=== PATIENT | female | born 1935 | race African-American/Black ===

== ENCOUNTER 2016-11-14 08:35 | Inpatient (IN) | payer OTHER ==
[~2016-11-14] VITALS: Ht 152.4 cm; Wt 62.7 kg
[~2016-11-14 08:35] MED LIST: ALLOPURINOL100 M1 PO; APIX5T PO; ARANESP25 MCG/0.4 SC; BACLOFEN10 M1 PO; CLOPIDOGREL75 M1 PO; COLACE100 M1 PO; COUMADIN 5 MG TA5 MG PO; ELIQUIS5 MG PO; FOLIC ACID 1 MG PO; GABAPENTIN100 M2 PO; GABAPENTIN100 MG PO; LEVOTHYROXIN0.075 M1 PO; MULTIPLE VITAM1 EAC2 PO; NEURONTIN100 MG PO; NIFEDIPINE ER30 M2 PO; SENOKOT8.6 M2 PO; SYNTHROID50 MCG PO; TOLTERODINE TART2 MG PO; VITAB121000 PO; VITAMIN D31000 UNI2 PO
--- NOTE | 2016-11-14 08:45 | NUR ---
PT BIBA FROM [facility] FOR ABNORMAL LABS. PT HAD BLOODWORK DRAWN ON 11/13 AND WAS FOUND TO HAVE A WBC OF 33.6. CXR WAS DONE AND NEGATIVE. URINE WAS OBTAINED AND SENT, PT WAS STARTED ON PO ABX FOR UTI. PT WAS ADVISED TO COME TO ED OVERNIGHT AND REFUSED. THIS AM PT WAS AGREEABLE TO COME TO ED FOR EVAL. PT ARRIVES ALERT TO SELF AND PLACE. H/O STROKE WITH LEFT SIDED DEFICITS. PT HAS NO COMPLAINTS. AFEBRILE. VSS. AWAITING EVAL.
[2016-11-14] MEDS ORDERED: ELIQUIS5 M1 PO (08:50)
[2016-11-14] MEDS ORDERED: GABAPENTIN300 M2 PO (08:52)
[2016-11-14] MEDS ORDERED: ALBUTEROL2.5 MG/3 M INH/SOL (08:53)
[2016-11-14] MEDS ORDERED: ACIDOPHILUS1 EACH PO (08:54)
[2016-11-14] MEDS ORDERED: FERROUS SULFAT325 M3 PO (08:54)
[2016-11-14] MEDS ORDERED: NITROFURANTOIN100 M6 PO (08:55)
--- NOTE | 2016-11-14 09:08 | NUR ---
DR PAGAN IN FOR EVAL.
--- NOTE | 2016-11-14 09:20 | ED GENERAL ADULT ---
History of Present Illness General Chief Complaint: General Adult Stated Complaint: BIBA ABNORMAL LABS Source: patient, old records, EMS Exam Limitations: poor historian Vital Signs & Intake/Output Vital Signs & Intake/Output Vital Signs Date Time Temp Pulse Resp B/P Pulse O2 O2 Flow FiO2 Ox Delivery Rate 11/15 0826 97.8 116 20 104/60 90 Nasal 3.0L Cannula 11/15 0000 Nasal 3.0L Cannula 11/14 2350 100.2 113 20 110/60 91 Nasal 3.0L Cannula 11/14 1609 97.9 90 21 108/70 91 Nasal 3.0L Cannula 11/14 1600 91 Nasal 3.0L Cannula 11/14 1404 98 Nasal 2.0L Cannula 11/14 1330 97.5 88 18 100/52 94 Nasal 2.0L Cannula 11/14 1241 97.0 81 20 101/52 98 Nasal 2.0L Cannula 11/14 1156 88 20 100/62 98 Room Air 11/14 1126 106/53 ED Intake and Output 11/15 0000 11/14 1200 Intake Total 340 1000 Output Total 310 200 Balance 30 800 Intake, IV 1000 Intake, Oral 340 Output, Urine 310 200 Patient 136 lb Weight Allergies Coded Allergies: clonidine (HIVES 02/02/16) Reconcile Medications Albuterol Sulfate 2.5 MG/3 ML (0.083 %) VIAL.NEB 1 Vial INH/BARBARA 4 TIMES/DAY BREATHING PROBLEMS (Reported) FOR 3 DAYS START 11/14 Allopurinol 100 MG TABLET 0.5 TAB PO DAILY GOUT (Reported) Apixaban (Eliquis) 5 MG TABLET 1 TAB PO BID PE (Reported) Baclofen 10 MG TABLET 0.25 TAB PO BID MUSCLE SPASMS (Reported) Cholecalciferol (Vitamin D3) 1,000 UNIT TABLET 1 TAB PO DAILY SUPPLEMENT ( Reported) Clopidogrel Bisulfate (Clopidogrel) 75 MG TABLET 1 TAB PO DAILY BLOOD THINNER (Reported) Darbepoetin Aldair in Polysorbat (Aranesp) 25 MCG/0.42 ML SYRINGE 1 INJ SC QW ANEMIA (Reported) Ferrous Sulfate 325 MG (65 MG IRON) TABLET 1 TAB PO BID SUPPLEMENT (Reported) Gabapentin 300 MG CAPSULE 1 CAP PO TID UNKNOWN (Reported) Lactobacillus Acidophilus (Acidophilus) 1 EACH CAPSULE 1 CAP PO DAILY GI ( Reported) Levothyroxine Sodium (Synthroid) 50 MCG TABLET 1 TAB PO DAILY AC THYROID ( Reported) Multivitamin (Multiple Vitamins) 1 EACH TABLET 1 TAB PO DAILY SUPPLEMENT ( Reported) Nifedipine (Nifedipine ER) 30 MG TAB.ER.24 1 TAB PO DAILY HBP (Reported) Nitrofurantoin Monohyd/M-Cryst (Nitrofurantoin [place]-Mcr 100 MG) 100 MG CAPSULE 1 CAP PO BID ANTIBIOTIC, INFECTION (Reported) Triage Note: PT BIBA FROM [facility] FOR ABNORMAL LABS. PT HAD BLOODWORK DRAWN ON 11/13 AND WAS FOUND TO HAVE A WBC OF 33.6. CXR WAS DONE AND NEGATIVE. URINE WAS OBTAINED AND SENT, PT WAS STARTED ON PO ABX FOR UTI. PT WAS ADVISED TO COME TO ED OVERNIGHT AND REFUSED. THIS AM PT WAS AGREEABLE TO COME TO ED FOR EVAL. PT ARRIVES ALERT TO SELF AND PLACE. H/O STROKE WITH LEFT SIDED DEFICITS. PT HAS NO COMPLAINTS. AFEBRILE. VSS. AWAITING EVAL. Triage Nurses Notes Reviewed? yes HPI: Patient presents for evaluation of abnormal labs. In her accounting she states that her blood pressure was increased and her white blood cell count was low. She states her temperature was also elevated at the [facility] care facility. She denies any associated dyspnea or pain. According to the W 10 form the patient appears to have had a low-grade fever with occasional decreased and oxygen saturations. She refused to go the hospital yesterday for evaluation. One point she had a large amount of the loose stool. According to the W 10 form the patient's BUN and creatinine were elevated, her potassium was elevated and her sodium was low. She was convinced to go to the emergency department this morning. Past History Travel History Traveled to [place] past 21 day No Medical History Any Pertinent Medical History? 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 TETRAPLEGIA EENT: cataracts (s/p extraction bilaterally) Cardiovascular: diastolic CHF, HTN, PE S/P IVC FILTER PLACEMENT DVT s/p IVC filter placement Respiratory: COPD, pulmonary embolism, pneumonia Gastrointestinal: diverticulitis Hepatic: NONE Renal: neurogenic bladder, CKI Musculoskeletal: gout, PARAPLEGIC SPINAL SURGERY (DISC PROLAPSE) Psychiatric: NONE Endocrine: hypothyroidism Blood Disorders: anemia, hemoglobin SC trait Cancer(s): NONE NOTEMAN/Reproductive: NONE History of MRSA: No History of VRE: No History of CDIFF: No Pneumonia Vaccine: 06/22/02 Surgical History Surgical History: non-contributory Psychosocial History Who do you live with W10 Services at Home Nursing, NONE What is your primary language Mongolian Tobacco Use: Never used ETOH Use: denies use Illicit Drug Use: denies illicit drug use Family History Family History, If Any: Relation not specified for: FH: hypertension Hx Contributory? No Review of Systems Review of Systems Constitutional: Reports: fever. EENTM: Reports: no symptoms. Respiratory: Reports: no symptoms. Cardiovascular: Reports: no symptoms. GI: Reports: no symptoms. Genitourinary: Reports: no symptoms. Musculoskeletal: Reports: no symptoms. Skin: Reports: no symptoms. Neurological/Psychological: Reports: no symptoms. Hematologic/Endocrine: Reports: no symptoms. Immunologic/Allergic: Reports: no symptoms. All Other Systems: Reviewed and Negative Physical Exam Physical Exam General Appearance: see below Comments: Gen.: Well-nourished, well-developed, no acute respiratory distress. Head: Normocephalic, atraumatic. Eyes: Normal inspection bilaterally Ears: Normal inspection bilaterally Nose: Normal inspection Throat/mouth : Moist mucosa Neck: Supple, full range of motion, no goiter Heart: Regular rate and rhythm, no murmurs rubs or gallops Lungs: Clear to auscultation bilaterally with normal air entry (poor respiratory effort given patient's past medical history) Chest: Nontender Back: Normal range of motion Abdomen: Soft, nontender, mildly, normal bowel sounds Extremities: Weakness of the upper extremities with muscle wasting. No cyanosis clubbing or edema. Neurologic: Cranial nerves grossly intact, speech is clear Skin: warm and dry Psychiatric: Calm, cooperative, no apparent delusions or hallucinations Core Measures ACS in differential dx? No CVA/TIA Diagnosis: No Severe Sepsis Present: No Septic Shock Present: No Progress Differential Diagnoses I considered the following diagnoses in my evaluation of the patient: Occult infection, electrolyte abnormality, renal insufficiency/failure Plan of Care: Orders Procedure Date/time Status LEUKOCYTE POOR (PACKED CELLS) 11/[address] ABD & PELVIS W/O IV CONTRAS 11/15 0918 Active TYPE & SCREEN (NOT X-MATCH) 11/15 0830 Active CULTURE,URINE 11/15 0647 Active CBC WITHOUT DIFFERENTIAL 11/15 0600 Complete BASIC ELECTROLYTES PLUS BUN&CR 11/15 0600 Complete Regular Diet 11/14 L Active Pathway - chart 11/14 1605 Active OXYGEN SETUP (GEN) 11/14 1600 Complete Turn and Reposition 11/14 1415 Active Skin Integrity Protocol 11/14 1415 Active Skin/Pressure Ulcer Assess (Sk 11/14 1415 Active Pathway - chart 11/14 1406 Active House Staff 11/14 1406 Active Teach/Educate 11/14 1331 Active Nutritional Intake, Monitor 11/14 1331 Active Isolation 11/14 1331 Active Patient Care Conference 11/14 1331 Active Activity/Ambulation 11/14 1331 Active Misc Message 11/14 1224 Active ED Holding Orders 11/14 1224 Active Vital Signs 11/14 1224 Active Code Status 11/14 1224 Active Patient Data 11/14 1215 Active Admit to inpatient 11/14 1141 Active Intake & Output 11/14 0843 Active Lab Add-on Test 11/14 UNK Active VTE Mechanical Prophylaxis 11/14 UNK Active Hemoccult 11/14 UNK Active Current Medications Sig/Kobi Start time Last Medication Dose Stop Time Status Admin Multivitamins 1 TAB DAILY 11/15 1000 AC Therapeutic (Theragran-M Vitamins Tabs) Albuterol Sulfate 3 ML 4 TIMES/DAY 11/14 1800 CAN (Proventil) Acetaminophen 650 MG Q6P PRN 11/14 1615 AC (Tylenol) Acetaminophen 1,000 MG Q6P PRN 11/14 1615 AC (Ofirmev) Morphine Sulfate 1 MG Q6-PRN PRN 11/14 1615 AC (Morphine) Laboratory Tests 11/15/16 0624: Anion Gap 12, Estimated GFR 11 L, BUN/Creatinine Ratio 20.8, CBC w Diff MAN DIFF ORDERED, RBC 2.45 L, MCV 82.9, MCH 27.1, RDW 20.0 H, MPV 8.8, Gran % 89.5 H, Lymphocytes % 3.5 L, Monocytes % 6.9, Eosinophils % 0.1, Basophils % 0 L, Absolute Granulocytes 31.9 H, Segmented Neutrophils 84 H, Band Neutrophils 2, Absolute Lymphocytes 1.3, Lymphocytes 4 L, Monocytes 10 H, Absolute Monocytes 2.4 H, Absolute Eosinophils 0, Absolute Basophils 0, Nucleated RBCs 2 H, Platelet Estimate VERIFIED BY SMEAR, Hypochromic-Microcytic 1+, Poikilocytosis 1 +, Anisocytosis 1+, Target Cells 1+, PUBS MCHC 32.7 L 11/14/16 1220: Lactic Acid Cancelled Microbiology 11/15 0650 URINE ROUT: Urine Culture - RECD Diagnostic Imaging: Discussed w/RAD: Radiology Read. CXR Impression: PATIENT: JOHNNIE CLEANING PRESENT AGE : 81 PATIENT ACCOUNT NO: [id number] : 34 LOCATION: [facility] ORDERING PHYSICIAN: EMELI PAGAN MD SERVICE DATE: 11/14/16 EXAM TYPE: RAD - XRY-PORTABLE CHEST XRAY EXAMINATION: XR PORTABLE CHEST CLINICAL INFORMATION: Fever COMPARISON: 10/25/2015 TECHNIQUE: Portable AP view of the chest was obtained. FINDINGS: There is elevation of the right hemidiaphragm. There is mild streaky opacity at the lung bases, suggesting atelectasis. The mid and upper lungs are clear. No evidence of pneumothorax, significant pleural effusion, or overt pulmonary edema. Cardiac size is at the upper limits of normal. Calcification is present at the aortic arch. No acute osseous findings are seen. IMPRESSION: Mild streaky bibasilar opacities suggesting atelectasis. Short-term radiographic follow-up would be helpful to exclude developing superimposed consolidation. DICTATED BY: IMANI OJEDA MD DATE/TIME DICTATED:11/14/16946 GAUGE INSPECTOR:BAO DATE/TIME TRANSCRIBED:11/14/16946 CONFIDENTIAL, DO NOT COPY WITHOUT APPROPRIATE AUTHORIZATION. <Electronically signed in Other Vendor System> SIGNED BY: IMANI OJEDA MD 11/14/1652 Initial ED EKG: NSR, rate (89), nonspecific ST T wave chg Prior EKG: unchanged Rhythm Strip: normal sinus rhythm Departure Departure Disposition: STILL A PATIENT Condition: Stable Clinical Impression Primary Impression: Bacteremia Secondary Impressions: Acute kidney injury Hyponatremia UTI (urinary tract infection) Qualifiers: Urinary tract infection type: acute cystitis Hematuria presence: with hematuria Qualified Code: N30.01 - Acute cystitis with hematuria Referrals: ADIS FLOREZ MD (PCP/Family) Departure Forms: Customer Survey General Discharge Information Admission Note Spoke With: MICHELL DALE M.D Documentation of Exam: Documentation of any treatments & extenuating circumstances including Concerns Regarding Discharge (functional status, medication knowledge or non-compliance, living conditions, etc.) that warrant an admission rather than observation: Patient presents with a history of fever and fluctuating oxygen saturations at her extended care facility. She currently has hyponatremia, acute kidney injury and a severely elevated white blood cell count consistent with UTI with bacteremia. Given the patient's advanced age and medical comorbidities I feel she is at high risk of worsening infection, sepsis, septic shock and . The patient's acute on chronic renal insufficiency/AKA, anemia and heart and lung disease place her at even greater risk of poor outcome. I do not feel that she could be treated as an outpatient at this time. I feel she now requires an aggressive management with IV antibiotics, IV fluids and close clinical monitoring of vital signs and oxygen saturations. Urine and blood culture results should be followed and treated accordingly. I feel this patient's treatment and recovery will be prolonged and complicated. Given the above I feel this patient will require a multiple day hospitalization. Critical Care Note Critical Care Note Critical Care Time: 30-74 min
[2016-11-14 09:33] LABS: HEMATOCRIT 23.6 % (37-47); MEAN PLATELET VOLUME 9.1 FL (7.4-10.4)
[2016-11-14 09:38] LABS: MEAN CORPUSCULAR HGB 26.9 PG (27.0-31.0); MEAN CORPUSCULAR HGB CONC 33.3 G/DL (33.0-37.0); MEAN CORPUSCULAR VOLUME 80.8 FL (81.0-99.0); PLATELET COUNT 286 /CUMM (130-400); RBC DISTRIBUTION WIDTH 20.2 % (11.5-14.5); RED BLOOD CELL CT 2.92 /CUMM (4.20-5.40)
[2016-11-14 09:44] LABS: WHITE BLOOD CELL COUNT 32.4 /CUMM (4.8-10.8)
--- NOTE | 2016-11-14 09:45 | NUR ---
CRITICAL TEST RESULTS [id number] JOHNNIE CLEANING 81 F TESTS AND RESULTS: WBC 32.4 Results received and read back by: MOHAN MENDEZ Results received date and time: 11/14/16 0945 The following provider was notified of the results, and read the results back: DR PAGAN Notified date and time: 11/14/16 at 0945
--- NOTE | 2016-11-14 09:52 | RADIOLOGY REPORT ---
EXAMINATION: XR PORTABLE CHEST CLINICAL INFORMATION: Fever COMPARISON: 10/25/2015 TECHNIQUE: Portable AP view of the chest was obtained. FINDINGS: There is elevation of the right hemidiaphragm. There is mild streaky opacity at the lung bases, suggesting atelectasis. The mid and upper lungs are clear. No evidence of pneumothorax, significant pleural effusion, or overt pulmonary edema. Cardiac size is at the upper limits of normal. Calcification is present at the aortic arch. No acute osseous findings are seen. IMPRESSION: Mild streaky bibasilar opacities suggesting atelectasis. Short-term radiographic follow-up would be helpful to exclude developing superimposed consolidation.
--- NOTE | 2016-11-14 10:10 | NUR ---
URINE TRIO SENT TO LAB. [facility] PROVIDED.
--- NOTE | 2016-11-14 10:30 | NUR ---
DR PAGAN IN TO SPEAK WITH PT'S DAUGHTER.
--- NOTE | 2016-11-14 11:15 | NUR ---
UPDATED [facility] ABOUT PT'S ADMISSION.
--- NOTE | 2016-11-14 12:50 | NUR ---
PT ADMITTED TO ROOM [id number]
--- NOTE | 2016-11-14 12:56 | NUR ---
REPORT TO ARNOL VALENTINO ON 2NB. TRANSPORT CALLED.
--- NOTE | 2016-11-14 13:23 | History & Physical ---
DENABILL 11/14/16 1323: General Information and HPI MD Statement: I have seen and personally examined JOHNNIE CLEANING and documented this H&P. The patient is a 81 year old F who presented with a patient stated chief complaint of [Fever]. 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 Patient is incontinent at baseline for urine but reports that she is continent for stool. She has been running fever for the past 2 days in the range of 100 with a few points. She denies any dysuria and cannot quantify if high urine frequency has changed because she pees in the diapers. There is a reported history of diarrhea about 2 motions yesterday which were none blood stained and at that time the patient was complaining of mild abdominal pain which today has resolved. She has recent history of using antibiotics 2 weeks ago because of greenish vaginal discharge. She denies any vomiting but reports nausea and has decreased appetite. Patient denies any shortness of breath, chest pain, palpitation, dizziness, lightheadedness Allergies/Medications Allergies: Coded Allergies: clonidine (HIVES 02/02/16) Home Med list Albuterol Sulfate 2.5 MG/3 ML (0.083 %) VIAL.NEB 1 Vial INH/BARBARA 4 TIMES/DAY BREATHING PROBLEMS (Reported) FOR 3 DAYS START 11/14 Allopurinol 100 MG TABLET 0.5 TAB PO DAILY GOUT (Reported) Apixaban (Eliquis) 5 MG TABLET 1 TAB PO BID PE (Reported) Baclofen 10 MG TABLET 0.25 TAB PO BID MUSCLE SPASMS (Reported) Cholecalciferol (Vitamin D3) 1,000 UNIT TABLET 1 TAB PO DAILY SUPPLEMENT ( Reported) Clopidogrel Bisulfate (Clopidogrel) 75 MG TABLET 1 TAB PO DAILY BLOOD THINNER (Reported) Darbepoetin Aldair in Polysorbat (Aranesp) 25 MCG/0.42 ML SYRINGE 1 INJ SC QW ANEMIA (Reported) Ferrous Sulfate 325 MG (65 MG IRON) TABLET 1 TAB PO BID SUPPLEMENT (Reported) Gabapentin 300 MG CAPSULE 1 CAP PO TID UNKNOWN (Reported) Lactobacillus Acidophilus (Acidophilus) 1 EACH CAPSULE 1 CAP PO DAILY GI ( Reported) Levothyroxine Sodium (Synthroid) 50 MCG TABLET 1 TAB PO DAILY AC THYROID ( Reported) Multivitamin (Multiple Vitamins) 1 EACH TABLET 1 TAB PO DAILY SUPPLEMENT ( Reported) Nifedipine (Nifedipine ER) 30 MG TAB.ER.24 1 TAB PO DAILY HBP (Reported) Nitrofurantoin Monohyd/M-Cryst (Nitrofurantoin Stanton-Mcr 100 MG) 100 MG CAPSULE 1 CAP PO BID ANTIBIOTIC, INFECTION (Reported) Past History Travel History Traveled to [place] past 21 day No Medical History Neurological: peripheral neuropathy, TIA, SPINAL STROKE PARALEGIA following surgery for disc prolapse TETRAPLEGIA EENT: cataracts (s/p extraction bilaterally) Cardiovascular: diastolic CHF, HTN, PE S/P IVC FILTER PLACEMENT DVT s/p IVC filter placement Respiratory: COPD, pulmonary embolism, pneumonia Gastrointestinal: diverticulitis Hepatic: NONE Renal: neurogenic bladder, CKI Musculoskeletal: gout, PARAPLEGIC SPINAL SURGERY (DISC PROLAPSE) Psychiatric: NONE Endocrine: hypothyroidism Blood Disorders: anemia, hemoglobin SC trait Cancer(s): NONE 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 self Services at Home: Nursing, NONE Primary Language: Thai ETOH Use: denies use Illicit Drug Use: denies illicit drug use Living Will? unknown Power of Sweat Band Separator/HCP? her daughter Name of POA/HCP: Nichole Functional Ability ADLs Needs Assist: dressing, eating, toileting, bathing. Ambulation: non-ambulatory IADLs Independent: telephone. Needs Assist: shopping, housework, finances, food prep, transportation, medication admin. Review of Systems Review of Systems Constitutional: Reports: fever. Denies: chills. Cardiovascular: Denies: chest pain, palpitations. Respiratory: Denies: cough, short of breath. GI: Reports: diarrhea, nausea. Denies: abdominal pain, vomiting. Genitourinary: Denies: no symptoms. Musculoskeletal: Denies: no symptoms. All Other Systems: Reviewed and Negative Exam & Diagnostic Data Last 24 Hrs of Vital Signs/I&O Vital Signs Date Time Temp Pulse Resp B/P Pulse O2 O2 Flow FiO2 Ox Delivery Rate 11/14 1404 98 Nasal 2.0L Cannula 11/14 1330 97.5 88 18 100/52 94 Nasal 2.0L Cannula 11/14 1241 97.0 81 20 101/52 98 Nasal 2.0L Cannula 11/14 1156 88 20 100/62 98 Room Air 11/14 1126 106/53 11/14 1028 98.1 89 18 98/50 96 11/14 0900 96 Nasal 2.0L Cannula 11/14 0845 98.9 91 20 100/57 95 Nasal 2.0L Cannula Intake & Output 11/14 1600 11/14 0800 11/14 0000 Intake Total 1000 Output Total 200 Balance 800 Intake, IV 1000 Output, Urine 200 Patient 136 lb Weight Physical Exam General Appearance Alert, Oriented X3, Cooperative Skin No Rashes, patient has a healing wound on the cocyx HEENT Atraumatic, Mucous Membr. moist/pink Neck No JVD Cardiovascular Regular Rate, Normal S1, Normal S2 Lungs Clear to Auscultation Abdomen Normal Bowel Sounds, Soft, No Tenderness Neurological Normal Speech, 0 power on the left upper and lower limbs/Lilli power on the right left upper and lower around 3 out of 5 Extremities No Clubbing, No Cyanosis, No Edema Last 24 Hrs of Labs/Jun: Laboratory Tests 11/14/16 1220: Lactic Acid Cancelled 11/14/16 1010: Urinalysis HEAVY H, Urine Color YEL, Urine Clarity CLDY H, Urine pH 6.5, Ur Specific [place] 1.015, Urine Protein 30 H, Urine Ketones NEG, Urine Nitrite NEG, Urine Bilirubin NEG, Urine Urobilinogen 1.0, Ur Leukocyte Esterase MOD H, Ur Microscopic SEDIMENT EXAMINED, Urine WBC > 75 H, Ur Epithelial Cells MOD H, Urine Hemoglobin LARGE H, Urine Glucose NEG 11/14/16 0926: Anion Gap 14, Estimated GFR 10 L, BUN/Creatinine Ratio 21.9, Glucose 75, Lactic Acid 1.5, Calcium 8.0 L, Total Bilirubin 1.3, AST 42 H, ALT 24, Alkaline Phosphatase 59, Troponin I 0.02, Total Protein 5.9 L, Albumin 3.0 L, Globulin 2.9, Albumin/Globulin Ratio 1.0 L, CBC w Diff MAN DIFF ORDERED, RBC 2.92 L, MCV 80.8 L, MCH 26.9 L, RDW 20.2 H, MPV 9.1, Segmented Neutrophils 89 H, Band Neutrophils 2, Lymphocytes 5 L, Monocytes 4, Nucleated RBCs 2 H, Platelet Estimate ADEQUATE, Polychromasia 1+, Hypochromic-Microcytic 2+, Poikilocytosis 2 +, Anisocytosis 2+, Target Cells 1+, Schistocytes 1+, PUBS MCHC 33.3 Microbiology 11/14 1050 BLOOD: Blood Culture - RECD 11/14 1034 URINE ROUT: Urine Culture - ORD 11/14 1030 BLOOD: Blood Culture - RECD Diagnostic Data CXR Results Bibasilar atelectasis Assessment/Plan Assessment: This is an 81 years old lady with extensive past medical history hypertension hypothyroidism hyperlipidemia sick a deep 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 This patient renal function has deteriorated significantly with creatinine increasing from 1.1 to 4.2 from August 07 with significant increase in BUN and decrease in GFR from 48-10 Problem list Urinary tract infection Acute kidney injury Hypotension Borderline hyperkalemia Chronic anemia Admit the patient to general medicine floor, vital signs every shift, is said to folic acid and is monitor I and O's, patient started on ceftriaxone 1000 mg daily will continue with the medication, follow-up urine culture results, patient receiving hydration normal saline 1 L at 500 mL per hour and we will continue at 150 mL/h for 2 L, nephrology consult for a.m., call [facility] to find out blood culture, will hold antihypertensive medication nifedipine 30 and consider restarting tomorrow if blood pressure stabilizes, continue with anemia supplementation. As Ranked By This Provider Problem List: 1. Acute kidney injury 2. UTI (urinary tract infection) Qualifiers Urinary tract infection type: acute cystitis Hematuria presence: with hematuria Qualified Code: N30.01 - Acute cystitis with hematuria 3. Hypothyroidism 4. DVT (deep venous thrombosis) Core Measures/Miscellaneous Acute Coronary Syndrome ACS Diagnosis: No Cerebrovascular Accident CVA/TIA Diagnosis: No Congestive Heart Failure CHF Diagnosis: No Venous Thromboembolism VTE Risk Factors: Acute medical illness, Age > 40 VTE Prophylaxis Ordered Inpt: Pharm- Eliquis No [facility] VTE prophylaxis d/t: No contraindications No VTE Pharm Prophylaxis d/t: No contraindications VTE Diagnosis: No VTE Type: NONE VTE Confirmed by (Test): NONE Severe Sepsis Severe Sepsis Present: No Septic Shock Septic Shock Present: No Miscellaneous Documentation Attending Case Discussed With: CANDE ELIZONDO MD Primary Care Physician: ADIS FLOREZ MD Patient sees these Specialists Carpenter Apprentice Level of Patient Care: General Medicine Resident Review Statement Resident Statement: examined this patient, review and workup as above CANDE ELIZONDO MD 11/14/16 7385: Attending MD Review Statement Attending Statement Attending MD Statement: examined this patient, discuss w/resident/PA/PURIFYING PLANT OPERATOR, agreed w/resident/PA/PURIFYING PLANT OPERATOR, discussed with family, reviewed EMR data (avail), discussed with nursing, amended to note Attending Assessment/Plan: The patient is an 81 yo female with h/o HEN, hypothyroid, h/o spinal cord injury (quadriplegia) and DVT/PE in past, 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 She was noted to have a fever (?100) prior to admission and bloodwork showed a significantly elevated WBC. She had been begun on Macrodantin 100 mg bid for presumed UTI. In the ED her BP was low and there was a significant elevation in her Creatinine 4.2 (was 2.8 on 11/13 and prior to that 1.1). She denied any chills, dyspnea, cough, abdominal pain, diarrhea, chest pain or other symptoms. Physical Exam: VS: T 98.9, P 91, R 20, BP 100/57, PO 95% on 2L HEENT: eyes- PERRLA, EOMI cleopatra- dry mucosa Neck: No JVD or bruits Chest: clear Cor: RRR, nl S1, S2 w/o murm Abd: BS+, soft, NT Ext: no edema Neuro: some movement of right side (3/5), able to move toes on left side (1/5)- baseline per relative Impression/Plan: #UTI- patient with WBC 32.4, fever (100), low BP, pyuria c/w urinary source. Has been on Macrodantin x 1 day. Lactate normal and does not appear toxic. Low BP most likely due to volume depletion. Plan: Quintana culture and check SNF regarding urine culture sent out. Ceftriaxone 1 g q24 hours #Acute Renal Failure- in patient with sepsis and probable significant component of volume depletion. Also has h/o renal artery stenosis. Cr today 4.2, was 2.8 2 and prior 1.1. Plan: Aggressive IV hydration at present. Follow-up Cr. Nephrology Consult (they have seen before). Consider renal US if not improving. Avoid nephrotoxins. #Quadriplegia- neuro exam unchanged per relatives. Plan: Continue Baclofen and Gabapentin. Will follow. #H/O DVT/PE- on Apixaban. Plan: Continue Apixaban. #S/P TIA-unclear history, however patient is on Plavix and ASA. Plan: Continue Plavix/ASA. #Hypothyroid- on Levothyroxine. Plan: Continue Levothyroxine. #HTN- BP low at present. Plan: Will hold Nifedipine at present until BP increases.
[2016-11-14 13:30] VITALS: BP 100/52
--- NOTE | 2016-11-14 14:38 | NUR ---
NURSING NOTE: PT ARRIVED TO FLOOR VIA STRETCHER AT 1300. PT A&OX2, LEFT SIDED PARALYSIS NOTED. VSS CHARTED. SM HEALING WOUND NOTED TO COCCYX. IVF INFUSING. FAMILY AT BEDSIDE. AWAITING FURTHER ORDERS.
[2016-11-14 16:09] VITALS: BP 108/70
--- NOTE | 2016-11-14 18:46 | NUR ---
ALERT AND ORIENTED X 3. VITAL SIGNS STABLE. NO DISCOMFORT NOTED O2SAT 91% ON 3L VIA NASAL CANNULA. HEALING WOUND ON COCCYX NOTED. PATIENT REPOSITIONED Q2HRS. CHINCHILLA CARE GIVEN. PATIENT RESTING AT THIS TIME. WILL CONTINUE TO MONITOR
--- NOTE | 2016-11-14 21:55 | Admission Certification ---
Admission Certification Certification Statement - As attending physician, I certify that at the time of - admission, based on clinical presentation, severity of - symptoms, need for further diagnostic testing and - therapeutic interventions, and risk of adverse outcomes - without in-hospital treatment, in my clinical assessment, - this patient requires an acute hospital stay for a minimum - of two nights or longer. I have also considered psychsocial - factors such as support system, advanced age, financial - issues, cognitive issues, and failed out-patient treatments, - past re-admission history, safety of patient, and lack of - compliance as applicable. Specific rationale supporting this admission is: The patient presents with fever, leukocytosis c/w sepsis of urologic origin. Also with acute renal failure with Cr 4.2 (baseline 1.1). Needs hydration, close follow-up of renal function. IV antibiotics (Ceftriaxone).
--- NOTE | 2016-11-14 22:07 | NUR ---
BROADLOOM WEAVER NOTIFIED OF CRITICAL LAB VALUES
[2016-11-14 23:50] VITALS: BP 110/60
[2016-11-15 07:53] LABS: ABSOLUTE BASOPHIL COUNT 0 /CUMM (0.0-0.2); ABSOLUTE EOSINOPHIL COUNT 0 /CUMM (0.0-0.7); ABSOLUTE GRANULOCYTE CT 31.9 /CUMM (1.4-6.5); ABSOLUTE LYMPH COUNT 1.3 /CUMM (1.2-3.4); ABSOLUTE MONOCYTE COUNT 2.4 /CUMM (0.10-0.60); BASOPHIL % 0 % (0.0-2.0); EOSINOPHIL % 0.1 % (0-5); GRANULOCYTE % 89.5 % (42.2-75.2); MEAN CORPUSCULAR HGB 27.1 PG (27.0-31.0); MEAN CORPUSCULAR HGB CONC 32.7 G/DL (33.0-37.0); MEAN CORPUSCULAR VOLUME 82.9 FL (81.0-99.0); MEAN PLATELET VOLUME 8.8 FL (7.4-10.4); PLATELET COUNT 254 /CUMM (130-400); RED BLOOD CELL CT 2.45 /CUMM (4.20-5.40)
--- NOTE | 2016-11-15 08:07 | PN- Housestaff ---
TAMERA METZ,MARIUM 11/15/16 0807: Subjective Follow-up For: Sepsis with urologic origin Complaints: no complaints Subjective: She is lying bed paraplegic, arciniega is in. She denies cough/sputum, shortness of breath, n/v/abdominal pain. Review of Systems Constitutional: Reports: chills, fever. Denies: weakness. EENTM: Reports: see HPI. Cardiovascular: Denies: chest pain, orthopena, palpitations, peripheral edema. Respiratory: Denies: cough, short of breath, sputum production, wheezing. Gastrointestinal: Denies: abdominal pain, diarrhea, nausea, vomiting. Genitourinary: Denies: dysuria, frequency, hematuria. Musculoskeletal: Denies: back pain, joint pain. Skin: Reports: no symptoms. Neurological/Psychological: Reports: pre-existing deficit, weakness. Hematologic/Endocrine: Reports: no symptoms. Immunologic/Allergic: Reports: no symptoms. Objective Last 24 Hrs of Vital Signs/I&O Vital Signs Date Time Temp Pulse Resp B/P Pulse O2 O2 Flow FiO2 Ox Delivery Rate 11/15 1840 91 Nasal 3.0L Cannula 11/15 1840 98.6 99 18 120/55 91 Nasal 3.0L Cannula 11/15 0826 97.8 116 20 104/60 90 Nasal 3.0L Cannula 11/15 0800 95 Nasal 3.0L Cannula 11/15 0000 Nasal 3.0L Cannula 11/14 2350 100.2 113 20 110/60 91 Nasal 3.0L Cannula Intake & Output 11/15 1600 11/15 0800 11/15 0000 Intake Total 880 1200 100 Output Total 250 250 310 Balance 630 950 -210 Intake, IV 400 1000 Intake, Oral 480 200 100 Output, Urine 250 250 310 Physical Exam General Appearance: Alert, Cooperative, No Acute Distress Skin: No Rashes, No Breakdown, No Significant Lesion HEENT: Atraumatic, PERRLA, EOMI, Mucous Membr. moist/pink Neck: Supple, No JVD, No LAD Lymphatic: Cervical nl Cardiovascular: Regular Rate, Normal S1, Normal S2, No Murmurs Lungs: decreased bilateral breathing sound Abdomen: Normal Bowel Sounds, Soft, No Tenderness Neurological: Normal Speech, Normal Tone, Sensation Intact, paraplegic Extremities: No Edema, Normal Pulses, No Tenderness/Swelling Vascular: Normal Pulses, Pulses Symmetrical Current Medications: Current Medications Sig/Kobi Start time Last Medication Dose Route Stop Time Status Admin Acetaminophen 650 MG Q6P PRN 11/14 1615 AC PO Acetaminophen 1,000 MG Q6P PRN 11/14 1615 AC IV Allopurinol 50 MG DAILY 11/15 1000 AC 11/15 PO 0923 Apixaban 2.5 MG BID 11/14 2200 AC 11/15 PO 0923 Baclofen 2.5 MG BID 11/14 2200 AC 11/15 PO 0928 Ceftriaxone Sodium 1,000 MG DAILY 11/15 1000 AC 11/15 IV 0929 Cholecalciferol 1,000 IU DAILY 11/15 1000 AC 11/15 PO 0923 Clopidogrel Bisulfate 75 MG DAILY 11/15 1000 AC 11/15 PO 0923 Ferrous Sulfate 325 MG BID 11/14 2200 AC 11/15 PO 0923 Gabapentin 100 MG DAILY 11/14 1600 AC 11/15 PO 0923 Lactobacillus 1 CAP DAILY 11/15 1000 AC 11/15 Acidophilus PO 0923 Levothyroxine Sodium 0.05 MG DAILY AC 11/15 0700 AC 11/15 PO 0744 Morphine Sulfate 1 MG Q6-PRN PRN 11/14 1615 AC IV Multivitamins 1 TAB DAILY 11/15 1000 AC Therapeutic PO Patient Medication 1 ED .STK-MED ONE 11/15 1348 DC Teaching ED 11/15 1349 Sodium Chloride 1,000 ML Q13H 11/15 0815 11/15 IV 0921 Sodium Chloride 1,000 ML .Q8H 11/14 1530 DC 11/14 IV 11/15 0729 1635 Last 24 Hrs of Lab/Jun Results Last 24 Hrs of Labs/Mics: Laboratory Tests 11/15/16 1900: Urine Color YEL, Urine Clarity CLEAR, Urine pH 6.0, Ur Specific [place] 1.010, Urine Protein 30 H, Urine Ketones NEG, Urine Nitrite NEG, Urine Bilirubin NEG, Urine Urobilinogen 0.2, Ur Leukocyte Esterase MOD H, Ur Microscopic SEDIMENT EXAMINED, Urine RBC 1-3, Urine WBC 10-15 H, Ur Epithelial Cells FEW, Urine Hemoglobin MOD H, Urine Glucose NEG 11/15/16 1900: Ur Random Creatinine 26.5, Ur Random Sodium 29 L, Ur Random Potassium 15.5, Fraction Sodium Excret 3.1 H 11/15/16 0624: Anion Gap 12, Estimated GFR 11 L, BUN/Creatinine Ratio 20.8, CBC w Diff MAN DIFF ORDERED, RBC 2.45 L, MCV 82.9, MCH 27.1, RDW 20.0 H, MPV 8.8, Gran % 89.5 H, Lymphocytes % 3.5 L, Monocytes % 6.9, Eosinophils % 0.1, Basophils % 0 L, Absolute Granulocytes 31.9 H, Segmented Neutrophils 84 H, Band Neutrophils 2, Absolute Lymphocytes 1.3, Lymphocytes 4 L, Monocytes 10 H, Absolute Monocytes 2.4 H, Absolute Eosinophils 0, Absolute Basophils 0, Nucleated RBCs 2 H, Platelet Estimate VERIFIED BY SMEAR, Hypochromic-Microcytic 1+, Poikilocytosis 1 +, Anisocytosis 1+, Target Cells 1+, PUBS MCHC 32.7 L Microbiology 11/15 0650 URINE ROUT: Urine Culture - RECD Lines/Diet/Fluids Catheters/Tubes: arciniega Arciniega Still Needed? Yes Lines: peripheral lines Assessment/Plan Assessment: 1. Sepsis likely secondary to urologic origin: Urine culture sent from [facility] was canceled as it has contamination. She was on nitrofurantoin from [facility]. 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 She had a history of renal artery stent from [facility] few years ago (not sure about which kidney). Urine/blood cultures remain negative so far. Continue IV ceftriaxone. As her WBC worsening today, will get CT abdomen/pelvis to rule out other infectious sources -> no obstructive uropathy. 2. Acute kidney injury: baseline Cr is near 1.0-1.1. Improving after IV hydration from 4.2 to 3.9 Continue IV NS @ 75cc/hr, check urine lytes, urine spot protein/Cr ratio, waiting Nephrology evaluation. CT abdomen/pelvis didn't reveal obstructive uropathy. 3. Cholelithiasis with hydropic gallbladder: CT abdomen/pelvis showed cholelithiasis with mild inflammation. She has normal LFT without symptoms/ tenderness. Surgical consult was appreciated. To rule out acute cholecystitis, she'll get HIDA scan today per surgical recommendation. 4. 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 c/w baclofen for spasticity & gabapentin 5. Hx of DVT/PE s/p IVC filter: continue eliquis 2.5 mg bid 6. Hypothyroidism: c/w levothyroxine 50mcg daily 7. HTN: hold nifedipine for borderline BP. 8. Acute on chronic anemia: likely from dilution / volume expansion. No active signs of bleeding, she denies any history of hematuria/melena/bright red per rectum. Last colonoscopy about 10 years ago without abnormal results (from [place]). Will give 1 PRBC, guiac stool, monitor pt. 9. Dilated appendix: about 10mm, low clinical suspicion for acute appendicitis per surgery. DVT ppx: po eliquis, full code. Problem List: 1. UTI (urinary tract infection) 2. Acute kidney injury Pain Ratin Pain Location: NA Pain Goal: Pain 4 or less Pain Plan: tyrenol po / iv gabapentin IV morphine Tomorrow's Labs & Rationales: CBC: acute infection BEP: LILLIE, LFT: cholelithiasis with hydropic GB DVT/Prophylaxis: pharmacological Discharge Plan Stable for Discharge? No CANDE ELIZONDO MD 11/15/16 1453: Attending MD Review Statement Attending Statement Attending MD Statement: examined this patient, discuss w/resident/PA/ROOFING TECHNICIAN, agreed w/resident/PA/ROOFING TECHNICIAN, reviewed EMR data (avail), discussed with nursing, discussed with case mgmt, amended to note Attending Assessment/Plan: The patient was seen and discussed with house staff. CT showed no evidence of pyelonephritis, however reading suggested possible "pneumonia", "hydrops GB" and "appendicitis". There is no clinical finding to suggest these were present. Most likely lung findings are atelectasis. Appreciate surgical input. Patient having Hepatobiliary scan to check GB. Await Nephrology input.
[2016-11-15 08:17] LABS: HEMATOCRIT 20.3 % (37-47); WHITE BLOOD CELL COUNT 35.6 /CUMM (4.8-10.8)
[2016-11-15 08:26] VITALS: BP 104/60
--- NOTE | 2016-11-15 11:17 | CT SCAN REPORT ---
EXAMINATION: CT ABDOMEN AND PELVIS WITHOUT CONTRAST CLINICAL INFORMATION: Secondary urologic sepsis. COMPARISON: None TECHNIQUE: Multidetector volumetric imaging was performed from the superior aspect of the liver through the pubic symphysis. Sagittal and coronal reformatted images were obtained on the technologist's workstation. DLP: 548 mGy-cm FINDINGS: LUNG BASES: The heart is enlarged with extensive atherosclerotic coronary calcifications and/or stent There is a there is volume loss involving the right lower lobe with associated infiltrate and atelectasis, age indeterminate, clinical correlation for pneumonia is recommended. There are small bilateral pleural effusions with subsegmental atelectasis dependently at the lung bases. Discoid atelectasis or scarring is favored in the lingula. LIVER AND SPLEEN: Unremarkable on this noncontrast examination. PANCREAS GALLBLADDER AND BILIARY TREE: The gallbladder is hydropic with a single 1.6 cm calcified stone dependently identified in the body of the gallbladder. No calcified stone is identified impacted in the gallbladder neck. There is mild pericholecystic soft tissue stranding without evidence of pericholecystic fluid. Ultrasound imaging could be performed to further evaluate. There is no evidence of intra or extrahepatic biliary ductal dilatation. Pancreas appears unremarkable. KIDNEYS, URETERS, AND ADRENALS: Kidneys appear mildly atrophic without evidence of hydronephrosis or urolithiasis. No focal adrenal masses are seen. URINARY BLADDER: Urinary bladder is collapsed containing a Sanchez catheter and a moderate amount of air likely iatrogenic. GI TRACT: There are numerous of mildly distended air-filled loops loops of small bowel throughout the abdomen gradually transitioning to more nondistended ileal loops in the pelvis without evidence of a clear transition zone. No obstructing mass is seen in these are likely related to an ileus type pattern. The appendix is retrocecal in position and mildly distended during up to 10 mm in transverse dimension only some very minimal surrounding soft tissue stranding suggested. Clinical correlation for an acute appendicitis is suggested. Surgical consultation should be considered. PERITONEAL CAVITY: No intraperitoneal free fluid is identified. RETROPERITONEUM: Extensive atherosclerotic aortic calcification without aneurysmal dilatation. IVC filter is identified. There is no evidence of retroperitoneal or mesenteric lymphadenopathy. PELVIC ORGANS: Uterus and adnexa appear unremarkable, urinary bladder as noted above. 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 There are mild degenerative changes in the lumbar spine. ANTERIOR ABDOMINAL WALL AND SOFT TISSUES: There is mild diffuse anasarca suggested. No underlying hernias are identified. IMPRESSION: 1. Findings suggestive of a right lower lobe pneumonia with associated atelectasis. 2. Cholelithiasis with a hydropic gallbladder with mild inflammatory changes. 3. Mildly distended small bowel loops including a 1 cm appendix with only minimal surrounding soft tissue stranding. Clinical correlation for acute appendicitis. 4. Given the gallbladder appendix and small bowel changes, findings are more likely related to physiologic decreased function related to the patient's clinical status, although surgical consultation should be considered. 5. Mild anasarca.
--- NOTE | 2016-11-15 12:38 | Cons- General Surgery ---
General Information and HPI Consulting Request Date of Consult: 11/15/16 Requested By: CANDE ELIZONDO MD History of Present Illness: This is an 81-year-old woman who presents from extended care facility for workup of fevers. She is paraplegic with partial use of her right side after spinal surgery 3 years ago. 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 Currently patient is unarousable and history is gleaned from her daughter who is at the bedside. Patient's daughter describes that her mother was previously interactive and alert. She did not complain of abdominal pain in her oral intake was normal. She had diarrhea and fevers prior to admission. There has been no further episodes of diarrhea since admission. Working diagnosis upon evaluation the ER was that of sepsis of urologic origin. She's placed on ceftriaxone cultures taken. No growth has been obtained thus far. Given the confusion of her reason for fevers and leukocytosis, CT scan of the abdomen pelvis was performed. Findings on CT show a distended gallbladder and a mildly dilated appendix. There is a question of sacha-cholecystic and appendiceal inflammatory changes, however these findings were mild and clinical correlation was recommended. Allergies/Medications Allergies: Coded Allergies: clonidine (HIVES 02/02/16) Home Med List: Albuterol Sulfate 2.5 MG/3 ML (0.083 %) VIAL.NEB 1 Vial INH/BARBARA 4 TIMES/DAY BREATHING PROBLEMS (Reported) FOR 3 DAYS START 11/14 Allopurinol 100 MG TABLET 0.5 TAB PO DAILY GOUT (Reported) Apixaban (Eliquis) 5 MG TABLET 1 TAB PO BID PE (Reported) Baclofen 10 MG TABLET 0.25 TAB PO BID MUSCLE SPASMS (Reported) Cholecalciferol (Vitamin D3) 1,000 UNIT TABLET 1 TAB PO DAILY SUPPLEMENT ( Reported) Clopidogrel Bisulfate (Clopidogrel) 75 MG TABLET 1 TAB PO DAILY BLOOD THINNER (Reported) Darbepoetin Aldair in Polysorbat (Aranesp) 25 MCG/0.42 ML SYRINGE 1 INJ SC QW ANEMIA (Reported) Ferrous Sulfate 325 MG (65 MG IRON) TABLET 1 TAB PO BID SUPPLEMENT (Reported) Gabapentin 300 MG CAPSULE 1 CAP PO TID UNKNOWN (Reported) Lactobacillus Acidophilus (Acidophilus) 1 EACH CAPSULE 1 CAP PO DAILY GI ( Reported) Levothyroxine Sodium (Synthroid) 50 MCG TABLET 1 TAB PO DAILY AC THYROID ( Reported) Multivitamin (Multiple Vitamins) 1 EACH TABLET 1 TAB PO DAILY SUPPLEMENT ( Reported) Nifedipine (Nifedipine ER) 30 MG TAB.ER.24 1 TAB PO DAILY HBP (Reported) Nitrofurantoin Monohyd/M-Cryst (Nitrofurantoin Grimes-Mcr 100 MG) 100 MG CAPSULE 1 CAP PO BID ANTIBIOTIC, INFECTION (Reported) Current Medications: Current Medications Sig/Kobi Start time Last Medication Dose Route Stop Time Status Admin Acetaminophen 650 MG Q6P PRN 11/14 1615 AC PO Acetaminophen 1,000 MG Q6P PRN 11/14 1615 AC IV Albuterol Sulfate 3 ML 4 TIMES/DAY 11/14 1800 CAN INH Allopurinol 50 MG DAILY 11/15 1000 AC 11/15 PO 0923 Apixaban 2.5 MG BID 11/14 2200 AC 11/15 PO 0923 Baclofen 2.5 MG BID 11/14 2200 AC 11/15 PO 0928 Ceftriaxone Sodium 1,000 MG DAILY 11/15 1000 AC 11/15 IV 0929 Cholecalciferol 1,000 IU DAILY 11/15 1000 AC 11/15 PO 0923 Clopidogrel Bisulfate 75 MG DAILY 11/15 1000 AC 11/15 PO 0923 Ferrous Sulfate 325 MG BID 11/14 2200 AC 11/15 PO 0923 Gabapentin 100 MG DAILY 11/14 1600 AC 11/15 PO 0923 Lactobacillus 1 CAP DAILY 11/15 1000 AC 11/15 Acidophilus PO 0923 Levothyroxine Sodium 0.05 MG DAILY AC 11/15 0700 AC 11/15 PO 0744 Morphine Sulfate 1 MG Q6-PRN PRN 11/14 1615 AC IV Multivitamins 1 TAB DAILY 11/15 1000 AC Therapeutic PO Sodium Chloride 1,000 ML Q13H 11/15 0815 AC 11/15 IV 0921 Sodium Chloride 1,000 ML .Q8H 11/14 1530 DC 11/14 IV 11/15 0729 1635 Sodium Chloride 1,000 ML BOLUS ONE 11/14 1330 DC 11/14 IV 11/14 1529 1425 Past History Medical History Blood Transfusion Hx: No Neurological: peripheral neuropathy, TIA, 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 Family History Relations & Conditions If Any: Relation not specified for: FH: hypertension Psychosocial History Where Do You Live? Extended Care Facility Who Do You Live With? self Services at Home: Nursing, NONE Primary Language: Persian Smoking Status: Never Smoked ETOH Use: denies use Illicit Drug Use: denies illicit drug use Living Will? unknown Power of Bench [employer]/HCP? her daughter Name of POA/HCP: Nichole Functional Ability ADLs Needs Assist: dressing, eating, toileting, bathing. Ambulation: non-ambulatory IADLs Independent: telephone. Needs Assist: shopping, housework, finances, food prep, transportation, medication admin. Review of Systems Review of Systems: Unobtainable Exam & Diagnostic Data Vital Signs and I&O Vital Signs Date Time Temp Pulse Resp B/P Pulse O2 O2 Flow FiO2 Ox Delivery Rate 11/15 0826 97.8 116 20 104/60 90 Nasal 3.0L Cannula 11/15 0800 95 Nasal 3.0L Cannula 11/15 0000 Nasal 3.0L Cannula 11/14 2350 100.2 113 20 110/60 91 Nasal 3.0L Cannula 11/14 1609 97.9 90 21 108/70 91 Nasal 3.0L Cannula 11/14 1600 91 Nasal 3.0L Cannula 11/14 1404 98 Nasal 2.0L Cannula 11/14 1330 97.5 88 18 100/52 94 Nasal 2.0L Cannula 11/14 1241 97.0 81 20 101/52 98 Nasal 2.0L Cannula Intake & Output 11/15 1600 11/15 0800 11/15 0000 11/14 1600 11/14 0800 11/14 0000 Intake Total 3956 083 2080 Output Total 250 310 200 Balance 950 -210 1040 Intake, IV 1000 1000 Intake, Oral 200 100 240 Output, Urine 250 310 200 Patient 136 lb Weight Physical Exam: Gen.: She looks her stated age she is of average body habitus. She is unresponsive. HEENT: Oral mucosa is pink and moist without ulceration. Neck is supple without adenopathy. Chest: Increased respiratory effort and excursion. Nontender Abdomen: Soft no involuntary guarding. There is mild fullness in the right abdomen without peritonitis. No hernias. No mass. Extremities: No cyanosis clubbing or edema Last 24 Hours of Labs: Laboratory Tests 11/15 623 Chemistry Sodium (137 - 145 mmol/L) 137 Potassium (3.5 - 5.1 mmol/L) 4.6 Chloride (98 - 107 mmol/L) 109 H Carbon Dioxide (22 - 30 mmol/L) 16 L Anion Gap (5 - 16) 12 BUN (7 - 17 mg/dL) 81 H Creatinine (0.5 - 1.0 mg/dL) 3.9 H Estimated GFR (>60 ml/min) 11 L BUN/Creatinine Ratio (7 - 25 %) 20.8 Hematology CBC w Diff MAN DIFF ORDERED WBC (4.8 - 10.8 /CUMM) 35.6 *H RBC (4.20 - 5.40 /CUMM) 2.45 L Hgb (12.0 - 16.0 G/DL) 6.7 *L Hct (37 - 47 %) 20.3 L MCV (81.0 - 99.0 FL) 82.9 MCH (27.0 - 31.0 PG) 27.1 RDW (11.5 - 14.5 %) 20.0 H Plt Count (130 - 400 /CUMM) 254 MPV (7.4 - 10.4 FL) 8.8 Gran % (42.2 - 75.2 %) 89.5 H Lymphocytes % (20.5 - 51.1 %) 3.5 L Monocytes % (1.7 - 9.3 %) 6.9 Eosinophils % (0 - 5 %) 0.1 Basophils % (0.0 - 2.0 %) 0 L Absolute Granulocytes (1.4 - 6.5 /CUMM) 31.9 H Segmented Neutrophils (42.2 - 75.2 %) 84 H Band Neutrophils (0.0 - 5.0 %) 2 Absolute Lymphocytes (1.2 - 3.4 /CUMM) 1.3 Lymphocytes (20.5 - 51.1 %) 4 L Monocytes (1.7 - 9.3 %) 10 H Absolute Monocytes (0.10 - 0.60 /CUMM) 2.4 H Absolute Eosinophils (0.0 - 0.7 /CUMM) 0 Absolute Basophils (0.0 - 0.2 /CUMM) 0 Nucleated RBCs (0.0 - 0.0 /100WBC) 2 H Platelet Estimate (ADEQUATE) VERIFIED BY SMEAR Hypochromic-Microcytic 1+ Poikilocytosis 1+ Anisocytosis 1+ Target Cells 1+ PUBS MCHC (33.0 - 37.0 G/DL) 32.7 L Imaging Results: CT scan of the abdomen pelvis was personally reviewed. Findings show a distended gallbladder with solitary calcified gallstone, not near the neck of the gallbladder. There is mild pericholecystic inflammatory changes that are similar to other areas throughout the abdomen. There is a minimally dilated appendix without significant inflammatory changes. There is no fecalith. Assessment/Plan Assessment/Plan 81-year-old paraplegic woman who is now nonresponsive. She has significant leukocytosis and fevers of indeterminate etiology. Although the gallbladder appeared to be distended on CT scan, she does not have the clinical picture for acute cholecystitis, at least from her daughter's report. Examination is difficult given her mental status. In regards to her appendix, one would expect that there should be some advanced inflammatory changes or abscess formation, if appendicitis was were the etiology of her leukocytosis. My overall impression is that her fever and leukocytosis is not due to either her gallbladder or her appendix. Most commonly white blood cell count of 30,000 is attributed to severe C. difficile colitis or urosepsis. There was a report of diarrhea prehospital, however this has not been present since admission to the hospital. If she has further episodes of diarrhea recommend sending it for her C. difficile toxin. Although I do not feel that her gallbladder is the source, it would be prudent to pursue HIDA scan for confirmation. Consult Acknowledgment - Thank you for your consult request.
--- NOTE | 2016-11-15 13:53 | NUR ---
WOUND CARE: REQUESTED BY NURSING TO EVLAUATE PT FOR SKIN ALTERATION PRESENT ON ADMSSION - PER RN REPORT SKIN HEALED - UPON ASSESSMENT PT NOTED WITH AN AREA OF EPITHELIALIZATION HEALED TO CLOSURE TO BUTTOCKS WITH HYPOPIGMENTATION - SOFT AT CENTER RECOMMENDATION: CONT WTIH PREVENTATIVE SKIN CARE PER FACILITY GUIDELINES - REMAIN ON SIZE NICK MATTRESS PT IS HIGH RISK - CONT WITH OFFLOADING Q2 HOURS AND PRN PLEASE
--- NOTE | 2016-11-15 17:18 | NUR ---
1530 ALERT AND ORIENTED X 3. VITAL SIGNS STABLE. DENIES CHEST PAIN. + PULSES L SIDE PARALYSIS DUE TO HX CVA. LEFT ARM BRACE ON. BLOOD PRODUCT INFUSING PATIENT OFF FLOOR FOR HIDA SCAN
--- NOTE | 2016-11-15 18:36 | NUR ---
PATIENT BACK ON THE FLOOR
[2016-11-15 18:40] VITALS: BP 120/55
--- NOTE | 2016-11-15 21:25 | NUR ---
RECEIVED PHONE CALL FROM DR DENISE AT [facility]. HIDA SCAN FOR PT IS POSITIVE FOR ACUTE CHOLECYSTITIS. DR INGRAM NOTIFIED. AWAITING FAXED REPORT.
--- NOTE | 2016-11-15 21:30 | NUCLEAR MEDICINE REPORT ---
EXAMINATION: NM HIDA SCAN CLINICAL INFORMATION: Right upper quadrant abdominal pain COMPARISON: CT scan performed earlier same day TECHNIQUE: Following the intravenous administration of 5.1 mCi technetium 99m Choletec, images of the abdomen are obtained for a period of 120 minutes. Following a two-hour delay, and additional single image of the abdomen is performed. FINDINGS: There is homogeneous uptake by the liver parenchyma with excretion into the biliary ductal system and the common bile duct by 5 minutes postinjection. There is filling of the small bowel by 10 minutes post injection. Subsequent images show further emptying at the small bowel, with no evidence for gallbladder activity. On the single delayed image, performed 4 hours after beginning the study, there is no uptake in the gallbladder. IMPRESSION: Absence of gallbladder activity is consistent with cystic duct obstruction, representing acute cholecystitis. There is normal excretion through the bile duct into the small bowel. This report was called to the nursing unit and given to Gaviota Cordero RN, at 9:20 PM on the evening of the study.
--- NOTE | 2016-11-15 21:54 | Event Note ---
Event Note Event Note: 9.39 PM: Notified Patient HIDA scan was positive for Acute Cholecystitis. Paged Surgical PA on # [phone] 9.55 PM: Surgial PA At Patients Bed side. Patient comfortable in room. Vitals and Physical exam non contributory. Offering no complaints. Daughters at bedside. Opting for more conservative measures. Vitals Q 4 hrs. Will Keep NPO for now. Resident Made Aware. Resident Made Aware.
[2016-11-15 22:18] VITALS: BP 116/60
--- NOTE | 2016-11-15 22:26 | Event Note ---
Event Note Event Note: Brief update: Pt's mentation has improved since admission. At this time, she is awake, verbalizing well, and in no acute distress. She has received 1u of PRBC's this afternoon. She remains afebrile and vitals are relatively stable. HR 95, BP 116/ 60, Sat 92% on 3L via NC, temp 97.6. HIDA scan results reveal evidence of acute cholecystitis. At this time, pt continues to deny pain. She has some abdominal bloating, but per her daughters, it is unchanged from baseline. There is question of mild tenderness along the upper abdomen bilaterally, which was only elicited with very deep palpation. Sometimes it wasn't reproducible, however. Negative wilson's sign. No guarding, rigidity, or rebound tenderness. I discussed with Dr. Walls, who agrees with conservative management with antibiotics and observation for now. Recommend q4 hour vitals. Recheck labs in AM. Surgical team will continue to follow.
[2016-11-16 01:56] VITALS: BP 118/56
[2016-11-16 06:00] VITALS: BP 112/56
[2016-11-16 08:16] LABS: ABSOLUTE BASOPHIL COUNT 0 /CUMM (0.0-0.2); ABSOLUTE EOSINOPHIL COUNT 0 /CUMM (0.0-0.7); ABSOLUTE GRANULOCYTE CT 39.1 /CUMM (1.4-6.5); ABSOLUTE LYMPH COUNT 0.9 /CUMM (1.2-3.4); ABSOLUTE MONOCYTE COUNT 1.7 /CUMM (0.10-0.60); BASOPHIL % 0 % (0.0-2.0); EOSINOPHIL % 0 % (0-5); GRANULOCYTE % 93.9 % (42.2-75.2); MEAN CORPUSCULAR HGB 27.5 PG (27.0-31.0); MEAN CORPUSCULAR HGB CONC 32.6 G/DL (33.0-37.0); MEAN CORPUSCULAR VOLUME 84.3 FL (81.0-99.0); MEAN PLATELET VOLUME 9.1 FL (7.4-10.4); PLATELET COUNT 267 /CUMM (130-400); RBC DISTRIBUTION WIDTH 19.9 % (11.5-14.5)
[2016-11-16 08:43] LABS: HEMATOCRIT 26.5 % (37-47); RED BLOOD CELL CT 3.14 /CUMM (4.20-5.40)
--- NOTE | 2016-11-16 08:45 | PN- Housestaff ---
ELIEZER CABRERA 11/16/16 0844: Subjective Follow-up For: Sepsis of urologic origin Leukocytosis Acute kidney injury Anemia Complaints: no complaints Subjective: Interval history: The patient denies any discomfort at this time, fevers, chills, nausea, abdominal pain. Review of Systems Constitutional: Reports: see HPI. Cardiovascular: Reports: no symptoms. Respiratory: Reports: no symptoms. Gastrointestinal: Reports: no symptoms. Genitourinary: Reports: see HPI. Musculoskeletal: Reports: no symptoms. Objective Last 24 Hrs of Vital Signs/I&O Vital Signs Date Time Temp Pulse Resp B/P Pulse O2 O2 Flow FiO2 Ox Delivery Rate 11/16 1235 97.7 11/16 0800 94 Nasal 3.0L Cannula 11/16 0600 98.6 89 18 112/56 97 11/16 0156 97.5 95 18 118/56 93 Nasal Cannula 11/16 0000 92 Nasal 3.0L Cannula 11/15 2218 97.6 95 18 116/60 92 Nasal 3.0L Cannula 11/15 1840 91 Nasal 3.0L Cannula 11/15 1840 98.6 99 18 120/55 91 Nasal 3.0L Cannula Intake & Output 11/16 1600 11/16 0800 11/16 0000 Intake Total 600 600 Output Total 300 625 Balance 300 -25 Intake, IV 600 600 Number 1 1 Bowel Movements Output, Urine 300 625 Patient 136 lb Weight Physical Exam General Appearance: Alert, Cooperative Skin: No Significant Lesion HEENT: Mucous Membr. moist/pink Cardiovascular: Regular Rate, Normal S1, Normal S2 Lungs: Clear to Auscultation, DImnished breath sounds in the basilar regions Abdomen: Soft, No Tenderness Extremities: Normal Pulses Vascular: Pulses Symmetrical Current Medications: Current Medications Sig/Kobi Start time Last Medication Dose Route Stop Time Status Admin Acetaminophen 650 MG Q6P PRN 11/14 1615 AC PO Acetaminophen 1,000 MG Q6P PRN 11/14 1615 AC IV Allopurinol 50 MG DAILY 11/15 1000 AC 11/16 PO 0949 Apixaban 2.5 MG BID 11/14 2199 DC 11/15 PO 2137 Baclofen 2.5 MG BID 11/14 2199 AC 11/16 PO 0949 Ceftriaxone Sodium 1,000 MG DAILY 11/15 1000 AC 11/16 IV 0949 Cholecalciferol 1,000 IU DAILY 11/15 1000 AC 11/16 PO 0949 Clopidogrel Bisulfate 75 MG DAILY 11/15 1000 DC 11/15 PO 0923 Dextrose/Sodium 1,000 ML Q13H 11/16 0730 DC 11/16 Chloride IV 0759 Ferrous Sulfate 325 MG BID 11/14 2200 AC 11/16 PO 0949 Gabapentin 100 MG DAILY 11/14 1600 AC 11/16 PO 0949 Lactobacillus 1 CAP DAILY 11/15 1000 AC 11/16 Acidophilus PO 0949 Levothyroxine Sodium 0.05 MG DAILY AC 11/15 0700 AC 11/16 PO 0638 Metronidazole 500 MG IQ8 11/16 1600 AC N/A 1 UNIT IV Morphine Sulfate 1 MG Q6-PRN PRN 11/14 1615 AC IV Multivitamins 1 TAB DAILY 11/15 1000 AC 11/16 Therapeutic PO 0949 Patient Medication 1 ED .STK-MED ONE 11/15 1348 CO Teaching ED 11/15 1349 Sodium Bicarbonate 150 MEQ Q10H 11/16 1300 AC Dextrose/Water 1,000 ML IV Sodium Chloride 1,000 ML Q13H 11/15 0815 CO 11/16 IV 0412 Last 24 Hrs of Lab/Jun Results Last 24 Hrs of Labs/Mics: Laboratory Tests 11/16/16 0732: Anion Gap 15, Estimated GFR 12 L, BUN/Creatinine Ratio 20.0, CBC w Diff MAN DIFF ORDERED, RBC 3.14 L, MCV 84.3, MCH 27.5, RDW 19.9 H, MPV 9.1, Gran % 93.9 H, Lymphocytes % 2.1 L, Monocytes % 4.0, Eosinophils % 0, Basophils % 0 L, Absolute Granulocytes 39.1 H, Segmented Neutrophils 94 H, Band Neutrophils 1, Absolute Lymphocytes 0.9 L, Lymphocytes 1 L, Monocytes 4, Absolute Monocytes 1.7 H, Absolute Eosinophils 0, Absolute Basophils 0, Nucleated RBCs 4 H, Platelet Estimate VERIFIED BY SMEAR, Polychromasia 1+, Poikilocytosis 2+, Anisocytosis 2+, Target Cells 2+, [place] Cells 1+, PUBS MCHC 32.6 L 11/15/16 1900: Urine Color YEL, Urine Clarity CLEAR, Urine pH 6.0, Ur Specific [place] 1.010, Urine Protein 30 H, Urine Ketones NEG, Urine Nitrite NEG, Urine Bilirubin NEG, Urine Urobilinogen 0.2, Ur Leukocyte Esterase MOD H, Ur Microscopic SEDIMENT EXAMINED, Urine RBC 1-3, Urine WBC 10-15 H, Ur Epithelial Cells FEW, Urine Hemoglobin MOD H, Urine Glucose NEG 11/15/16 1900: Ur Random Creatinine 26.5, Ur Random Sodium 29 L, Ur Random Potassium 15.5, Fraction Sodium Excret 3.1 H Microbiology 11/16 0827 STOOL: Clostridium difficile Toxin A & B - COLB Assessment/Plan Assessment: 1. Sepsis likely secondary to urologic origin: * Current urine cultures positive for gram-negative rods. * Patient has progressive leukocytosis despite being on metronidazole and ceftriaxone. Had a chance to speak with Dr. Carlos. At this time recommendations are to expand coverage for enterococcal coverage. We'll discontinue ceftriaxone and metronidazole. Start the patient on Zosyn dose adjusted for renal function. Second set of blood cultures obtained * Urine culture sent from [facility] was canceled as it has contamination. She was on nitrofurantoin from [facility]. 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 She had a history of renal artery stent from [facility] few years ago (not sure about which kidney). Urine/blood cultures remain negative so far. Continue IV ceftriaxone. As her WBC worsening today, will get CT abdomen/pelvis to rule out other infectious sources -> no obstructive uropathy. 2. Acute kidney injury: * BUN/Cr 74/3.7 today * Discontinue normal saline. Per recommendations from nephrology will start the patient on D5 W 150 mEq of bicarbonate at 100 mL an hour. * BEP at 7 PM * Target bicarbonate greater than 18 at which point we can discontinue the D5W 150 mEq of bicarbonate and put her back on normal saline 3. Cholelithiasis with hydropic gallbladder: * Surgical recommendations: At this time we'll hold off Eliquis and Plavix. If worsening clinical function patient may have to have an emergent percutaneous drain placed * CT abdomen/pelvis showed cholelithiasis with mild inflammation. She has normal LFT without symptoms/tenderness. Surgical consult was appreciated. To rule out acute cholecystitis, she'll get HIDA scan today per surgical recommendation. 4. 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 c/w baclofen for spasticity & gabapentin 5. Hx of DVT/PE s/p IVC filter: * Holding Eliquis and Plavix at this time in anticipation of probable intervention 6. Hypothyroidism: * c/w levothyroxine 50mcg daily 7. HTN: hold nifedipine for borderline BP. 8. Acute on chronic anemia: likely from dilution / volume expansion. No active signs of bleeding, she denies any history of hematuria/melena/bright red per rectum. Last colonoscopy about 10 years ago without abnormal results (from [place]). Will give 1 PRBC, guiac stool, monitor pt. 9. Dilated appendix: about 10mm, low clinical suspicion for acute appendicitis per surgery. DVT ppx: po eliquis, full code. Problem List: 1. UTI (urinary tract infection) 2. Acute kidney injury 3. Hyponatremia 4. Cholelithiasis 5. Sepsis Pain Ratin Pain Location: NA Pain Goal: Pain 4 or less Pain Plan: NA Tomorrow's Labs & Rationales: CBC BEP DVT/Prophylaxis: pharmacological ROBIN METZ,[facility] 11/16/16 1411: Attending MD Review Statement Attending Statement Attending MD Statement: examined this patient, discuss w/resident/PA/PATCH SETTER, agreed w/resident/PA/PATCH SETTER, discussed with family, discussed with nursing, reviewed images Attending Assessment/Plan: 81-year-old elderly female with a history of quadriplegia secondary to complications from spine surgery, shelter resident with a history of DVT and PE and has been on Eliquis is being admitted on the floor for presumed UTI/ cholecystitis. Surgical consult placed and the diagnoses are inclined more stewards acute cholecystitis which requires surgical/IR procedure. ID has also been put on board and has recommended a more broader coverage to cover anaerobes as well. Patient's Eliquis and Plavix has been discontinued to prepare her for possible IR procedure if patient remains clinically stable, or else would require immediate surgical procedure if the patient deteriorates acutely. Plan discussed with the resident.
[2016-11-16 09:31] LABS: WHITE BLOOD CELL COUNT 41.7 /CUMM (4.8-10.8)
--- NOTE | 2016-11-16 10:36 | PN- General Surgery ---
Subjective Subjective: Patient is much more alert today. She is interactive and able to answer questions without difficulty. She denies discomfort. On specific probing, she does admit to mild abdominal pain, suprapubic. She denies nausea vomiting. She is not hungry despite being nothing by mouth. Objective Vital Signs and I&Os Vital Signs Date Time Temp Pulse Resp B/P Pulse O2 O2 Flow FiO2 Ox Delivery Rate 11/16 06 98.6 89 18 112/56 97 11/16 0156 97.5 95 18 118/56 93 Nasal Cannula 11/16 0000 92 Nasal 3.0L Cannula 11/15 2218 97.6 95 18 116/60 92 Nasal 3.0L Cannula 11/15 184 91 Nasal 3.0L Cannula 11/15 1839 98.6 99 18 120/55 91 Nasal 3.0L Cannula Intake & Output 11/16 1600 11/16 0800 11/16 0000 11/15 1600 11/15 0800 11/15 0000 Intake Total 600 177 931 2665 100 Output Total 300 625 250 250 310 Balance 300 -25 630 950 -210 Intake, IV 600 851 787 9551 Intake, Oral 480 200 100 Number 1 1 Bowel Movements Output, Urine 300 625 250 250 310 Physical Exam: Gen.: She is in no distress she looks her stated age and has average body habitus. Alert and oriented 3. HEENT: Anicteric PERRL EOMI dry mucous membranes. Chest: Nontender, normal respiratory excursion, normal respiratory effort Abdomen: Soft, flat. Mild tenderness, right upper quadrant with involuntary guarding. Radiation of pain from right upper quadrant to suprapubic region on deep palpation. No direct suprapubic tenderness Extremities: No cyanosis clubbing or edema Current Medications: Current Medications Sig/Kobi Start time Last Medication Dose Route Stop Time Status Admin Acetaminophen 650 MG Q6P PRN 11/14 1615 AC PO Acetaminophen 1,000 MG Q6P PRN 11/14 1615 AC IV Allopurinol 50 MG DAILY 11/15 1000 AC 11/16 PO 0949 Apixaban 2.5 MG BID 11/14 2199 AC 11/15 PO 2137 Baclofen 2.5 MG BID 11/14 2199 AC 11/16 PO 0949 Ceftriaxone Sodium 1,000 MG DAILY 11/15 1000 AC 11/16 IV 0949 Cholecalciferol 1,000 IU DAILY 11/15 1000 AC 11/16 PO 0949 Clopidogrel Bisulfate 75 MG DAILY 11/15 1000 AC 11/15 PO 0923 Dextrose/Sodium 1,000 ML Q13H 11/16 0730 AC 11/16 Chloride IV 0759 Ferrous Sulfate 325 MG BID 11/14 2200 AC 11/16 PO 0949 Gabapentin 100 MG DAILY 11/14 1600 AC 11/16 PO 0949 Lactobacillus 1 CAP DAILY 11/15 1000 AC 11/16 Acidophilus PO 0949 Levothyroxine Sodium 0.05 MG DAILY AC 11/15 0700 AC 11/16 PO 0638 Morphine Sulfate 1 MG Q6-PRN PRN 11/14 1615 AC IV Multivitamins 1 TAB DAILY 11/15 1000 AC 11/16 Therapeutic PO 0949 Patient Medication 1 ED .STK-MED ONE 11/15 1348 DC Teaching ED 11/15 1349 Sodium Chloride 1,000 ML Q13H 11/15 0815 DC 11/16 IV 0412 Results Last 48 Hours of Labs: Laboratory Tests 11/16 0732 Chemistry Sodium (137 - 145 mmol/L) 138 Potassium (3.5 - 5.1 mmol/L) 4.6 Chloride (98 - 107 mmol/L) 110 H Carbon Dioxide (22 - 30 mmol/L) 12 L Anion Gap (5 - 16) 15 BUN (7 - 17 mg/dL) 74 H Creatinine (0.5 - 1.0 mg/dL) 3.7 H Estimated GFR (>60 ml/min) 12 L BUN/Creatinine Ratio (7 - 25 %) 20.0 Hematology CBC w Diff MAN DIFF ORDERED WBC (4.8 - 10.8 /CUMM) 41.7 *H RBC (4.20 - 5.40 /CUMM) 3.14 L Hgb (12.0 - 16.0 G/DL) 8.6 L Hct (37 - 47 %) 26.5 L MCV (81.0 - 99.0 FL) 84.3 MCH (27.0 - 31.0 PG) 27.5 RDW (11.5 - 14.5 %) 19.9 H Plt Count (130 - 400 /CUMM) 267 MPV (7.4 - 10.4 FL) 9.1 Gran % (42.2 - 75.2 %) 93.9 H Lymphocytes % (20.5 - 51.1 %) 2.1 L Monocytes % (1.7 - 9.3 %) 4.0 Eosinophils % (0 - 5 %) 0 Basophils % (0.0 - 2.0 %) 0 L Absolute Granulocytes (1.4 - 6.5 /CUMM) 39.1 H Segmented Neutrophils (42.2 - 75.2 %) 94 H Band Neutrophils (0.0 - 5.0 %) 1 Absolute Lymphocytes (1.2 - 3.4 /CUMM) 0.9 L Lymphocytes (20.5 - 51.1 %) 1 L Monocytes (1.7 - 9.3 %) 4 Absolute Monocytes (0.10 - 0.60 /CUMM) 1.7 H Absolute Eosinophils (0.0 - 0.7 /CUMM) 0 Absolute Basophils (0.0 - 0.2 /CUMM) 0 Nucleated RBCs (0.0 - 0.0 /100WBC) 4 H Platelet Estimate (ADEQUATE) VERIFIED BY SMEAR Polychromasia 1+ Poikilocytosis 2+ Anisocytosis 2+ Target Cells 2+ [place] Cells 1+ PUBS MCHC (33.0 - 37.0 G/DL) 32.6 L 11/15 11/15 1900 1900 Urines Urine Color (YEL,AMB,STR) YEL Urine Clarity (CLEAR) CLEAR Urine pH (5.0 - 8.0) 6.0 Ur Specific [place] (1.001 - 1.035) 1.010 Urine Protein (NEG,<30 MG/DL) 30 H Urine Ketones (NEG) NEG Urine Nitrite (NEG) NEG Urine Bilirubin (NEG) NEG Urine Urobilinogen (0.1 - 1.0 EU/dl) 0.2 Ur Leukocyte Esterase (NEG) MOD H Ur Microscopic SEDIMENT EXAMINED Urine RBC (0 - 5 /HPF) 1-3 Urine WBC (0 - 2 /HPF) 10-15 H Ur Epithelial Cells (NONE,FEW) FEW Urine Hemoglobin (NEG) MOD H Ur Random Creatinine (mg/dL) 26.5 Ur Random Sodium (30 - 90 mmol/L) 29 L Ur Random Potassium (mmol/L) 15.5 Fraction Sodium Excret (<1% %) 3.1 H Urine Glucose (N MG/DL) NEG 11/15 11/14 0624 1220 Chemistry Sodium (137 - 145 mmol/L) 137 Potassium (3.5 - 5.1 mmol/L) 4.6 Chloride (98 - 107 mmol/L) 109 H Carbon Dioxide (22 - 30 mmol/L) 16 L Anion Gap (5 - 16) 12 BUN (7 - 17 mg/dL) 81 H Creatinine (0.5 - 1.0 mg/dL) 3.9 H Estimated GFR (>60 ml/min) 11 L BUN/Creatinine Ratio (7 - 25 %) 20.8 Lactic Acid Cancelled Total Bilirubin (0.2 - 1.3 mg/dL) 0.8 Direct Bilirubin (< 0.4 mg/dL) 0.7 H AST (14 - 36 U/L) 42 H ALT (9 - 52 U/L) 24 Alkaline Phosphatase (<127 U/L) 64 Total Protein (6.3 - 8.2 g/dL) 5.1 L Albumin (3.5 - 5.0 g/dL) 2.4 L Hematology CBC w Diff MAN DIFF ORDERED WBC (4.8 - 10.8 /CUMM) 35.6 *H RBC (4.20 - 5.40 /CUMM) 2.45 L Hgb (12.0 - 16.0 G/DL) 6.7 *L Hct (37 - 47 %) 20.3 L MCV (81.0 - 99.0 FL) 82.9 MCH (27.0 - 31.0 PG) 27.1 RDW (11.5 - 14.5 %) 20.0 H Plt Count (130 - 400 /CUMM) 254 MPV (7.4 - 10.4 FL) 8.8 Gran % (42.2 - 75.2 %) 89.5 H Lymphocytes % (20.5 - 51.1 %) 3.5 L Monocytes % (1.7 - 9.3 %) 6.9 Eosinophils % (0 - 5 %) 0.1 Basophils % (0.0 - 2.0 %) 0 L Absolute Granulocytes (1.4 - 6.5 /CUMM) 31.9 H Segmented Neutrophils (42.2 - 75.2 %) 84 H Band Neutrophils (0.0 - 5.0 %) 2 Absolute Lymphocytes (1.2 - 3.4 /CUMM) 1.3 Lymphocytes (20.5 - 51.1 %) 4 L Monocytes (1.7 - 9.3 %) 10 H Absolute Monocytes (0.10 - 0.60 /CUMM) 2.4 H Absolute Eosinophils (0.0 - 0.7 /CUMM) 0 Absolute Basophils (0.0 - 0.2 /CUMM) 0 Nucleated RBCs (0.0 - 0.0 /100WBC) 2 H Platelet Estimate (ADEQUATE) VERIFIED BY SMEAR Hypochromic-Microcytic 1+ Poikilocytosis 1+ Anisocytosis 1+ Target Cells 1+ PUBS MCHC (33.0 - 37.0 G/DL) 32.7 L 11/14 11/14 1010 1010 Urines Urinalysis HEAVY H Urine Color (YEL,AMB,STR) YEL Urine Clarity (CLEAR) CLDY H Urine pH (5.0 - 8.0) 6.5 Ur Specific [place] (1.001 - 1.035) 1.015 Urine Protein (NEG,<30 MG/DL) 30 H Urine Ketones (NEG) NEG Urine Nitrite (NEG) NEG Urine Bilirubin (NEG) NEG Urine Urobilinogen (0.1 - 1.0 EU/dl) 1.0 Ur Leukocyte Esterase (NEG) MOD H Ur Microscopic SEDIMENT EXAMINED Urine WBC (0 - 2 /HPF) > 75 H Ur Epithelial Cells (NONE,FEW) MOD H Urine Hemoglobin (NEG) LARGE H Ur Random Creatinine (mg/dL) 105.9 U Random Total Protein (0 - 12 mg/dL) 106.3 H Protein/Creatinin Ratio (< 0.2) 1.00 H Urine Glucose (N MG/DL) NEG Recent Imaging Studies: HIDA scan: Images personally reviewed and compared to radiologic interpretation. The images show prompt uptake in the liver with biliary excretion into the small bowel. There is no filling of the gallbladder at 4 hours, suggestive cystic duct obstruction and acute cholecystitis CT scan of the abdomen pelvis was re-reviewed. Although there is evidence of diffuse anasarca, there appears to be more inflammatory changes around the gallbladder compared to other areas in her abdomen. There are no findings to suggest colitis. Assessment/Plan Assessment/Plan Patient's diagnosis is difficult to obtain, primarily due to her quadriplegic state and physical examination. It is often times difficult to interpret abdominal examinations patients who have paralysis above the thoracic spine, as there may be alterations in autonomic nerves as well. Today her physical examination is consistent with focal peritonitis in the right upper quadrant. This findings concerning for acute cholecystitis, as supported by her HIDA scan. I had a discussion today at the bedside with the patient and her daughter who was present. Given her worsening leukocytosis, lack of urinary findings and new tenderness on examination, I feel that the etiology of her fevers and leukocytosis is severe acute cholecystitis. Intervention will be required. We discussed cholecystectomy, which would require general anesthesia, paralysis and endotracheal intubation. Given her quadriplegia and acute renal failure I feel that this would likely incur untoward morbidity, with extended intubation. I feel the best avenue approach would be to pursue percutaneous drainage of her gallbladder. Unfortunately she remains anticoagulated was is on Plavix. I discussed with interventional radiology today. They recommend 3 days off Eliquis and 5 days off Plavix prior to intervention. I don't feel that she can wait that long. Since she remains hemodynamically stable and afebrile, we can at least wait 2 days for the Eliquis to wear off. Please call me if her condition changes acutely.
--- NOTE | 2016-11-16 12:43 | Cons- Nephrology ---
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 Urine cultures positive for gram-negative rods and she had 10-20 white cells per high-power field on urinalysis without hematuria and only trace proteinuria. CAT scan of the abdomen and pelvis revealed inflammation concerning for possible cholecystitis and HIDA scan was positive. A right lower lobe infiltrate was also noted on CAT scan. After conversations between the surgeon the family conservative measures are currently planned. It appears Eliquis and Plavix were both held today. I been asked to see her for acute renal failure, as her baseline creatinine usually runs 0.9-1.1 last year however was 2.8 on admission and subsequently codie to 4.2, decreasing to 3.7 with IV fluids. There has been no NSAID exposure IV contrast exposure. She was hypotensive to the 90 systolic 2 days ago. Associated with the renal failure is a mixed gap/non-gap metabolic acidosis. She is nonoliguric with urine output of 1.1 L over the past 24 via Arciniega catheter (she is incontinent at baseline) disease. She was also transfused 1 unit of packed RBCs yesterday. Courses has been c/b by worsening mental status and upon duration which is partially improved today. Allergies/Medications Allergies: Coded Allergies: clonidine (HIVES 02/02/16) Home Med List: Albuterol Sulfate 2.5 MG/3 ML (0.083 %) VIAL.NEB 1 Vial INH/BARBARA 4 TIMES/DAY BREATHING PROBLEMS (Reported) FOR 3 DAYS START 11/14 Allopurinol 100 MG TABLET 0.5 TAB PO DAILY GOUT (Reported) Apixaban (Eliquis) 5 MG TABLET 1 TAB PO BID PE (Reported) Baclofen 10 MG TABLET 0.25 TAB PO BID MUSCLE SPASMS (Reported) Cholecalciferol (Vitamin D3) 1,000 UNIT TABLET 1 TAB PO DAILY SUPPLEMENT ( Reported) Clopidogrel Bisulfate (Clopidogrel) 75 MG TABLET 1 TAB PO DAILY BLOOD THINNER (Reported) Darbepoetin Aldair in Polysorbat (Aranesp) 25 MCG/0.42 ML SYRINGE 1 INJ SC QW ANEMIA (Reported) Ferrous Sulfate 325 MG (65 MG IRON) TABLET 1 TAB PO BID SUPPLEMENT (Reported) Gabapentin 300 MG CAPSULE 1 CAP PO TID UNKNOWN (Reported) Lactobacillus Acidophilus (Acidophilus) 1 EACH CAPSULE 1 CAP PO DAILY GI ( Reported) Levothyroxine Sodium (Synthroid) 50 MCG TABLET 1 TAB PO DAILY AC THYROID ( Reported) Multivitamin (Multiple Vitamins) 1 EACH TABLET 1 TAB PO DAILY SUPPLEMENT ( Reported) Nifedipine (Nifedipine ER) 30 MG TAB.ER.24 1 TAB PO DAILY HBP (Reported) Nitrofurantoin Monohyd/M-Cryst (Nitrofurantoin [place]-Mcr 100 MG) 100 MG CAPSULE 1 CAP PO BID ANTIBIOTIC, INFECTION (Reported) Current Medications: Current Medications Sig/Kobi Start time Last Medication Dose Route Stop Time Status Admin Acetaminophen 650 MG Q6P PRN 11/14 1615 AC PO Acetaminophen 1,000 MG Q6P PRN 11/14 1615 AC IV Allopurinol 50 MG DAILY 11/15 1000 AC 11/16 PO 0949 Apixaban 2.5 MG BID 11/140 DC 11/15 PO 2137 Baclofen 2.5 MG BID 11/140 AC 11/16 PO 0949 Ceftriaxone Sodium 1,000 MG DAILY 11/15 1000 AC 11/16 IV 0949 Cholecalciferol 1,000 IU DAILY 11/15 1000 AC 11/16 PO 0949 Clopidogrel Bisulfate 75 MG DAILY 11/15 1000 DC 11/15 PO 0923 Dextrose/Sodium 1,000 ML Q13H 11/16 0730 AC 11/16 Chloride IV 0759 Ferrous Sulfate 325 MG BID 11/14 2200 AC 11/16 PO 0949 Gabapentin 100 MG DAILY 11/14 1600 AC 11/16 PO 0949 Lactobacillus 1 CAP DAILY 11/15 1000 AC 11/16 Acidophilus PO 0949 Levothyroxine Sodium 0.05 MG DAILY AC 11/15 0700 AC 11/16 PO 0638 Metronidazole 500 MG IQ8 11/16 1600 AC N/A 1 UNIT IV Morphine Sulfate 1 MG Q6-PRN PRN 11/14 1615 AC IV Multivitamins 1 TAB DAILY 11/15 1000 AC 11/16 Therapeutic PO 0949 Patient Medication 1 ED .STK-MED ONE 11/15 1348 DC Teaching ED 11/15 1349 Sodium Chloride 1,000 ML Q13H 11/15 0815 DC 11/16 IV 0412 Review of Systems Review of Systems: Gen: +fever/chills Skin: neg rash, pruritus Eye: neg visual changes, diplopia ENT: neg hearing changes, rhinitus CV: neg CP, SOB, BRADLEY, PND, orthopnea Pulm: neg cough, sputum, hemoptysis GI: neg nausea, vomiting, abdominal pain, hematemesis, BRBPR +diarrhea : neg dysuria, frequency, urgency, hematuria, foamy urine, nocturia + incontinent Musculoskeletal: neg myalgias, arthralgias Neuro: Positive quadriplegia. 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 Family History Relations & Conditions If Any: Relation not specified for: FH: hypertension Psychosocial History Where Do You Live? Extended Care Facility Who Do You Live With? self Services at Home: Nursing, NONE Primary Language: Slovak Smoking Status: Never Smoked ETOH Use: denies use Illicit Drug Use: denies illicit drug use Living Will? unknown Power of Coating Manager/HCP? her daughter Name of POA/HCP: Nichole Functional Ability ADLs Needs Assist: dressing, eating, toileting, bathing. Ambulation: non-ambulatory IADLs Independent: telephone. Needs Assist: shopping, housework, finances, food prep, transportation, medication admin. Exam & Diagnostic Data Vital Signs and I&O Vital Signs Date Time Temp Pulse Resp B/P Pulse O2 O2 Flow FiO2 Ox Delivery Rate 11/16 0800 94 Nasal 3.0L Cannula 11/16 0600 98.6 89 18 112/56 97 11/16 0156 97.5 95 18 118/56 93 Nasal Cannula 11/16 0000 92 Nasal 3.0L Cannula 11/15 2218 97.6 95 18 116/60 92 Nasal 3.0L Cannula 11/15 1840 91 Nasal 3.0L Cannula 11/15 1840 98.6 99 18 120/55 91 Nasal 3.0L Cannula Intake & Output 11/16 1600 11/16 0400 11/15 1600 11/15 0400 11/14 1600 11/14 0400 Intake Total 779 952 1896 100 1240 Output Total 300 625 500 310 200 Balance 300 -25 1580 -210 1040 Intake, IV 327 510 0119 1000 Intake, Oral 680 100 240 Number 1 1 Bowel Movements Output, Urine 300 625 500 310 200 Patient 136 lb 136 lb Weight Physical Exam: General: NAD, A+O x3. HEENT: NC/AT. No icterus. Moist mucosa Neck: negative for ALEX, JVD CV: RRR, no m/r/g Pulm: CTAB, no rales Abd: soft, mild tenderness L side of abdmen Lower Ext: neg edema Upper Ext: no AVFs or AVGs Back: negative for CVA tenderness Neuro: Unable to move left arm. Moves right side minimally. Can wiggle toes on the left side Skin: no rash, jaundice : + arciniega catheter Results Pertinent Lab Results: Laboratory Tests 11/16 0732 Chemistry Sodium (137 - 145 mmol/L) 138 Potassium (3.5 - 5.1 mmol/L) 4.6 Chloride (98 - 107 mmol/L) 110 H Carbon Dioxide (22 - 30 mmol/L) 12 L Anion Gap (5 - 16) 15 BUN (7 - 17 mg/dL) 74 H Creatinine (0.5 - 1.0 mg/dL) 3.7 H Estimated GFR (>60 ml/min) 12 L BUN/Creatinine Ratio (7 - 25 %) 20.0 Hematology CBC w Diff MAN DIFF ORDERED WBC (4.8 - 10.8 /CUMM) 41.7 *H RBC (4.20 - 5.40 /CUMM) 3.14 L Hgb (12.0 - 16.0 G/DL) 8.6 L Hct (37 - 47 %) 26.5 L MCV (81.0 - 99.0 FL) 84.3 MCH (27.0 - 31.0 PG) 27.5 RDW (11.5 - 14.5 %) 19.9 H Plt Count (130 - 400 /CUMM) 267 MPV (7.4 - 10.4 FL) 9.1 Gran % (42.2 - 75.2 %) 93.9 H Lymphocytes % (20.5 - 51.1 %) 2.1 L Monocytes % (1.7 - 9.3 %) 4.0 Eosinophils % (0 - 5 %) 0 Basophils % (0.0 - 2.0 %) 0 L Absolute Granulocytes (1.4 - 6.5 /CUMM) 39.1 H Segmented Neutrophils (42.2 - 75.2 %) 94 H Band Neutrophils (0.0 - 5.0 %) 1 Absolute Lymphocytes (1.2 - 3.4 /CUMM) 0.9 L Lymphocytes (20.5 - 51.1 %) 1 L Monocytes (1.7 - 9.3 %) 4 Absolute Monocytes (0.10 - 0.60 /CUMM) 1.7 H Absolute Eosinophils (0.0 - 0.7 /CUMM) 0 Absolute Basophils (0.0 - 0.2 /CUMM) 0 Nucleated RBCs (0.0 - 0.0 /100WBC) 4 H Platelet Estimate (ADEQUATE) VERIFIED BY SMEAR Polychromasia 1+ Poikilocytosis 2+ Anisocytosis 2+ Target Cells 2+ [place] Cells 1+ PUBS MCHC (33.0 - 37.0 G/DL) 32.6 L 11/15 11/15 1900 1900 Urines Urine Color (YEL,AMB,STR) YEL Urine Clarity (CLEAR) CLEAR Urine pH (5.0 - 8.0) 6.0 Ur Specific [place] (1.001 - 1.035) 1.010 Urine Protein (NEG,<30 MG/DL) 30 H Urine Ketones (NEG) NEG Urine Nitrite (NEG) NEG Urine Bilirubin (NEG) NEG Urine Urobilinogen (0.1 - 1.0 EU/dl) 0.2 Ur Leukocyte Esterase (NEG) MOD H Ur Microscopic SEDIMENT EXAMINED Urine RBC (0 - 5 /HPF) 1-3 Urine WBC (0 - 2 /HPF) 10-15 H Ur Epithelial Cells (NONE,FEW) FEW Urine Hemoglobin (NEG) MOD H Ur Random Creatinine (mg/dL) 26.5 Ur Random Sodium (30 - 90 mmol/L) 29 L Ur Random Potassium (mmol/L) 15.5 Fraction Sodium Excret (<1% %) 3.1 H Urine Glucose (N MG/DL) NEG 11/15 11/14 0624 1220 Chemistry Sodium (137 - 145 mmol/L) 137 Potassium (3.5 - 5.1 mmol/L) 4.6 Chloride (98 - 107 mmol/L) 109 H Carbon Dioxide (22 - 30 mmol/L) 16 L Anion Gap (5 - 16) 12 BUN (7 - 17 mg/dL) 81 H Creatinine (0.5 - 1.0 mg/dL) 3.9 H Estimated GFR (>60 ml/min) 11 L BUN/Creatinine Ratio (7 - 25 %) 20.8 Lactic Acid Cancelled Total Bilirubin (0.2 - 1.3 mg/dL) 0.8 Direct Bilirubin (< 0.4 mg/dL) 0.7 H AST (14 - 36 U/L) 42 H ALT (9 - 52 U/L) 24 Alkaline Phosphatase (<127 U/L) 64 Total Protein (6.3 - 8.2 g/dL) 5.1 L Albumin (3.5 - 5.0 g/dL) 2.4 L Hematology CBC w Diff MAN DIFF ORDERED WBC (4.8 - 10.8 /CUMM) 35.6 *H RBC (4.20 - 5.40 /CUMM) 2.45 L Hgb (12.0 - 16.0 G/DL) 6.7 *L Hct (37 - 47 %) 20.3 L MCV (81.0 - 99.0 FL) 82.9 MCH (27.0 - 31.0 PG) 27.1 RDW (11.5 - 14.5 %) 20.0 H Plt Count (130 - 400 /CUMM) 254 MPV (7.4 - 10.4 FL) 8.8 Gran % (42.2 - 75.2 %) 89.5 H Lymphocytes % (20.5 - 51.1 %) 3.5 L Monocytes % (1.7 - 9.3 %) 6.9 Eosinophils % (0 - 5 %) 0.1 Basophils % (0.0 - 2.0 %) 0 L Absolute Granulocytes (1.4 - 6.5 /CUMM) 31.9 H Segmented Neutrophils (42.2 - 75.2 %) 84 H Band Neutrophils (0.0 - 5.0 %) 2 Absolute Lymphocytes (1.2 - 3.4 /CUMM) 1.3 Lymphocytes (20.5 - 51.1 %) 4 L Monocytes (1.7 - 9.3 %) 10 H Absolute Monocytes (0.10 - 0.60 /CUMM) 2.4 H Absolute Eosinophils (0.0 - 0.7 /CUMM) 0 Absolute Basophils (0.0 - 0.2 /CUMM) 0 Nucleated RBCs (0.0 - 0.0 /100WBC) 2 H Platelet Estimate (ADEQUATE) VERIFIED BY SMEAR Hypochromic-Microcytic 1+ Poikilocytosis 1+ Anisocytosis 1+ Target Cells 1+ PUBS MCHC (33.0 - 37.0 G/DL) 32.7 L 11/14 11/14 1010 1010 Urines Urinalysis HEAVY H Urine Color (YEL,AMB,STR) YEL Urine Clarity (CLEAR) CLDY H Urine pH (5.0 - 8.0) 6.5 Ur Specific [place] (1.001 - 1.035) 1.015 Urine Protein (NEG,<30 MG/DL) 30 H Urine Ketones (NEG) NEG Urine Nitrite (NEG) NEG Urine Bilirubin (NEG) NEG Urine Urobilinogen (0.1 - 1.0 EU/dl) 1.0 Ur Leukocyte Esterase (NEG) MOD H Ur Microscopic SEDIMENT EXAMINED Urine WBC (0 - 2 /HPF) > 75 H Ur Epithelial Cells (NONE,FEW) MOD H Urine Hemoglobin (NEG) LARGE H Ur Random Creatinine (mg/dL) 105.9 U Random Total Protein (0 - 12 mg/dL) 106.3 H Protein/Creatinin Ratio (< 0.2) 1.00 H Urine Glucose (N MG/DL) NEG 11/14 0926 Chemistry Sodium (137 - 145 mmol/L) 131 L Potassium (3.5 - 5.1 mmol/L) 5.2 H Chloride (98 - 107 mmol/L) 98 Carbon Dioxide (22 - 30 mmol/L) 19 L Anion Gap (5 - 16) 14 BUN (7 - 17 mg/dL) 92 H Creatinine (0.5 - 1.0 mg/dL) 4.2 H Estimated GFR (>60 ml/min) 10 L BUN/Creatinine Ratio (7 - 25 %) 21.9 Glucose (65 - 99 mg/dL) 75 Lactic Acid (0.7 - 2.1 mmol/L) 1.5 Calcium (8.4 - 10.2 mg/dL) 8.0 L Total Bilirubin (0.2 - 1.3 mg/dL) 1.3 AST (14 - 36 U/L) 42 H ALT (9 - 52 U/L) 24 Alkaline Phosphatase (<127 U/L) 59 Troponin I (< 0.11 ng/ml) 0.02 Total Protein (6.3 - 8.2 g/dL) 5.9 L Albumin (3.5 - 5.0 g/dL) 3.0 L Globulin (1.9 - 4.2 gm/dL) 2.9 Albumin/Globulin Ratio (1.1 - 2.2 %) 1.0 L Hematology CBC w Diff MAN DIFF ORDERED WBC (4.8 - 10.8 /CUMM) 32.4 *H RBC (4.20 - 5.40 /CUMM) 2.92 L Hgb (12.0 - 16.0 G/DL) 7.9 L Hct (37 - 47 %) 23.6 L MCV (81.0 - 99.0 FL) 80.8 L MCH (27.0 - 31.0 PG) 26.9 L RDW (11.5 - 14.5 %) 20.2 H Plt Count (130 - 400 /CUMM) 286 MPV (7.4 - 10.4 FL) 9.1 Segmented Neutrophils (42.2 - 75.2 %) 89 H Band Neutrophils (0.0 - 5.0 %) 2 Lymphocytes (20.5 - 51.1 %) 5 L Monocytes (1.7 - 9.3 %) 4 Nucleated RBCs (0.0 - 0.0 /100WBC) 2 H Platelet Estimate (ADEQUATE) ADEQUATE Polychromasia 1+ Hypochromic-Microcytic 2+ Poikilocytosis 2+ Anisocytosis 2+ Target Cells 1+ Schistocytes 1+ PUBS MCHC (33.0 - 37.0 G/DL) 33.3 Assessment/Plan Assessment/Recommendations Assessment: Acute kidney injury: I suspect an element of prerenal azotemia as well as an element of ATN. Fractionization of sodium is elevated and ATN range, yet renal function improved partially with hydration supporting a mixed picture. Obstructive uropathy is been ruled out on imaging. Urinalysis is not consistent with glomerular disease. Would continue hydration with isotonic IV fluids however would change to a bicarbonate-based solution given the associated metabolic acidosis. Hemodialysis not currently warranted. Metabolic acidosis: This is a mixed gap/non-gap metabolic acidosis. Urinalysis is negative for ketones and lactic acid was normal. I suspect the medical ACIDOSIS due to renal failure. Recommend changing to a bicarbonate-based isotonic IV solution with D5W +3 Amps of sodium bicarbonate at 100 mL per hour. Severe leukocytosis: There appears to be multiple possible infectious issues that are ongoing including cholecystitis, right lower lobe pneumonia, gram- negative gokul urinary tract infection, and there was also report of diarrhea on presentation and would rule out C. difficile. Leukocytosis is worsening despite ceftriaxone and Flagyl and will consider broadening antibiotic coverage. Surgery is also closely following the patient. Recommendations: No emergent dialytic need Change IV fluids to D5W +150 meq of sodium bicarbonate at 100 mL per hour; once bicarbonate levels over 18 can change back to D5NS Would consider broadening antibiotic coverage to a regimen such as vancomycin ( by level) and ceftazidime but will defer to primary service who is considering infectious disease consultation Check coags Discussed with covering resident. Thank you for the consultation.
[2016-11-16 15:08] VITALS: BP 116/62
[2016-11-16 17:24] LABS: ABSOLUTE BASOPHIL COUNT 0 /CUMM (0.0-0.2); ABSOLUTE EOSINOPHIL COUNT 0 /CUMM (0.0-0.7); ABSOLUTE GRANULOCYTE CT 48.2 /CUMM (1.4-6.5); ABSOLUTE LYMPH COUNT 0.6 /CUMM (1.2-3.4); ABSOLUTE MONOCYTE COUNT 2.1 /CUMM (0.10-0.60); BASOPHIL % 0.1 % (0.0-2.0); EOSINOPHIL % 0 % (0-5); GRANULOCYTE % 94.6 % (42.2-75.2); HEMATOCRIT 27.6 % (37-47); MEAN CORPUSCULAR HGB 26.9 PG (27.0-31.0); MEAN CORPUSCULAR HGB CONC 32.5 G/DL (33.0-37.0); MEAN CORPUSCULAR VOLUME 82.8 FL (81.0-99.0); MEAN PLATELET VOLUME 8.4 FL (7.4-10.4); PLATELET COUNT 302 /CUMM (130-400); RBC DISTRIBUTION WIDTH 20.8 % (11.5-14.5); RED BLOOD CELL CT 3.33 /CUMM (4.20-5.40)
[2016-11-16 17:33] LABS: WHITE BLOOD CELL COUNT 50.9 /CUMM (4.8-10.8)
[2016-11-16 20:41] VITALS: BP 119/70
[2016-11-17] VITALS (8 sets, daily range): BP systolic 11–118; BP diastolic 48–68
--- NOTE | 2016-11-17 06:02 | NUR ---
NURSE NOTE: PT CHINCHILLA PUT OUT 200ML OVERNIGHT. MD JACKSON WAS MADE NOTIFIED. WILL GIVE REPORT TO NEXT NURSE TO MONITOR URINE OUTPUT.
--- NOTE | 2016-11-17 07:58 | PN- Housestaff ---
See Addendum Subjective Follow-up For: Sepsis of urologic origin Leukocytosis Acute kidney injury Anemia Complaints: Difficulty with IV access Subjective: Interval history: Overnight there were no acute events. Unfortunately due to difficulty with IV access, we have had a hard time with follow up labs. Patient reports feeling hungry at this time. Review of Systems Constitutional: Reports: see HPI. Cardiovascular: Reports: no symptoms. Respiratory: Reports: no symptoms. Gastrointestinal: Reports: see HPI. Objective Last 24 Hrs of Vital Signs/I&O Vital Signs Date Time Temp Pulse Resp B/P Pulse O2 O2 Flow FiO2 Ox Delivery Rate 11/17 0406 96.0 81 16 98/52 93 11/17 0021 96.9 85 16 100/48 92 11/17 0000 Nasal 3.0L Cannula 11/16 2041 97.0 88 16 119/70 90 Nasal 3.0L Cannula 11/16 1600 94 Nasal 3.0L Cannula 11/16 1508 97.7 90 16 116/62 92 Nasal 2.0L Cannula 11/16 1235 97.7 Intake & Output 11/17 1600 11/17 0800 11/17 0000 Intake Total 920 420 Output Total 200 250 Balance 720 170 Intake, IV 800 300 Intake, Oral 120 120 Number 0 Bowel Movements Output, Urine 200 250 Physical Exam General Appearance: Alert, Cooperative, No Acute Distress Skin: No Significant Lesion HEENT: EOMI, Mucous Membr. moist/pink Cardiovascular: Regular Rate, Normal S1, Normal S2 Lungs: Diminished breath sounds in the basilar regions Abdomen: Normal Bowel Sounds, Soft, No Tenderness Extremities: Normal Pulses, 1+ pitting edema BL LE Current Medications: Current Medications Sig/Kobi Start time Last Medication Dose Route Stop Time Status Admin Acetaminophen 650 MG Q6P PRN 11/14 1615 AC PO Acetaminophen 1,000 MG Q6P PRN 11/14 1615 AC IV Allopurinol 50 MG DAILY 11/15 1000 AC 11/16 PO 0949 Apixaban 2.5 MG BID 11/14 2199 DC 11/15 PO 213 Baclofen 2.5 MG BID 11/14 2199 AC 11/16 PO 214 Ceftriaxone Sodium 1,000 MG DAILY 11/15 1000 DC 11/16 IV 0949 Cholecalciferol 1,000 IU DAILY 11/15 1000 AC 11/16 PO 0949 Clopidogrel Bisulfate 75 MG DAILY 11/15 1000 DC 11/15 PO 0923 Dextrose/Sodium 1,000 ML Q13H 11/16 0730 DC 11/16 Chloride IV 0759 Ferrous Sulfate 325 MG BID 11/14 2200 AC 11/16 PO 2146 Gabapentin 100 MG DAILY 11/14 1600 AC 11/16 PO 0949 Lactobacillus 1 CAP DAILY 11/15 1000 AC 11/16 Acidophilus PO 0949 Levothyroxine Sodium 0.05 MG DAILY AC 11/15 0700 AC 11/17 PO 0557 Metronidazole 500 MG IQ8 11/16 1600 CAN N/A 1 UNIT IV Morphine Sulfate 1 MG Q6-PRN PRN 11/14 1615 AC IV Multivitamins 1 TAB DAILY 11/15 1000 AC 11/16 Therapeutic PO 0949 Non-Formulary 0 SEE ADMIN CRITERIA 11/16 1415 CAN Medication ANY Piperacillin Sod/ 2.25 GM Q8H 11/17 0000 AC 11/17 Tazobactam Sod IV 0827 Sodium Chloride 50 ML Piperacillin Sod/ 2.25 GM Q8 11/16 1430 DC 11/16 Tazobactam Sod IV 1644 Sodium Chloride 50 ML Sodium Bicarbonate 150 MEQ Q10H 11/16 1300 AC 11/17 Dextrose/Water 1,000 ML IV 0011 Last 24 Hrs of Lab/Jun Results Last 24 Hrs of Labs/Mics: Laboratory Tests 11/17/16 0836: Sodium Pending, Potassium Pending, Chloride Pending, Carbon Dioxide Pending, Anion Gap Pending, BUN Pending, Creatinine Pending, BUN/Creatinine Ratio Pending , CBC w Diff MAN DIFF ORDERED, WBC Pending, RBC Pending, Hgb Pending, Hct Pending, MCV Pending, MCH Pending, RDW Pending, Plt Count Pending, MPV Pending, Gran % Pending, Lymphocytes % Pending, Monocytes % Pending, Eosinophils % Pending, Basophils % Pending, Absolute Granulocytes Pending, Segmented Neutrophils Pending, Absolute Lymphocytes Pending, Absolute Monocytes Pending, Absolute Eosinophils Pending, Absolute Basophils Pending, PUBS MCHC Pending 11/17/16 0059: Anion Gap 15, Estimated GFR 13 L, BUN/Creatinine Ratio 20.3 11/16/16 1625: Anion Gap 17 H, Estimated GFR 12 L, BUN/Creatinine Ratio 20.0, PT 17.0 H, INR 1.63 H, CBC w Diff NO MAN DIFF REQ, RBC 3.33 L, MCV 82.8, MCH 26.9 L, RDW 20.8 H, MPV 8.4, Gran % 94.6 H, Lymphocytes % 1.1 L, Monocytes % 4.2, Eosinophils % 0, Basophils % 0.1, Absolute Granulocytes 48.2 H, Absolute Lymphocytes 0.6 L, Absolute Monocytes 2.1 H, Absolute Eosinophils 0, Absolute Basophils 0, PUBS MCHC 32.5 L Microbiology 11/17 0059 BLOOD: Blood Culture - RECD 11/16 1625 BLOOD: Blood Culture - RECD Assessment/Plan Assessment: 1. Sepsis likely secondary to urologic origin: * Current urine cultures positive for gram-negative rods. * We DC metronidazole and ceftriaxone, started Zosyn on 11/16/2016 in the setting of progressive leukocytosis. * Urine culture sent from [facility] was canceled as it has contamination. She was on nitrofurantoin from [facility]. 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 She had a history of renal artery stent from [facility] few years ago (not sure about which kidney) 2. Acute kidney injury: * D5W 150 mEq of bicarbonate at 100 mL an hour. Pending BEP this AM. Will change her fluids to NS once HCO >18 3. Cholelithiasis with hydropic gallbladder: * Eliquis and Plavix on hold at this time. If worsening clinical function patient may have to have an emergent percutaneous drain placed * CT abdomen/pelvis showed cholelithiasis with mild inflammation. She has normal LFT without symptoms/tenderness 4. 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 c/w baclofen for spasticity & gabapentin 5. Hx of DVT/PE s/p IVC filter: * Holding Eliquis and Plavix at this time in anticipation of probable intervention 6. Hypothyroidism: * c/w levothyroxine 50mcg daily 7. HTN: hold nifedipine for borderline BP. 8. Acute on chronic anemia: likely from dilution / volume expansion. No active signs of bleeding, she denies any history of hematuria/melena/bright red per rectum. Last colonoscopy about 10 years ago without abnormal results (from [place]). Will give 1 PRBC, guiac stool, monitor pt. 9. Dilated appendix: about 10mm, low clinical suspicion for acute appendicitis per surgery. DVT ppx: po eliquis, full code. Problem List: 1. Sepsis 2. UTI (urinary tract infection) 3. Acute kidney injury 4. Hyponatremia 5. Cholelithiasis 6. Low bicarbonate level Pain Ratin Pain Location: NA Pain Goal: Pain 4 or less Pain Plan: NA Tomorrow's Labs & Rationales: CBC - following leukocytosis BEP - monitoring HCO DVT/Prophylaxis: mechanical
[2016-11-17 08:59] LABS: ABSOLUTE BASOPHIL COUNT 0 /CUMM (0.0-0.2); ABSOLUTE EOSINOPHIL COUNT 0 /CUMM (0.0-0.7); ABSOLUTE GRANULOCYTE CT 44.9 /CUMM (1.4-6.5); ABSOLUTE LYMPH COUNT 2.2 /CUMM (1.2-3.4); ABSOLUTE MONOCYTE COUNT 1.7 /CUMM (0.10-0.60); BASOPHIL % 0 % (0.0-2.0); EOSINOPHIL % 0 % (0-5); GRANULOCYTE % 92.1 % (42.2-75.2); HEMATOCRIT 25.7 % (37-47); MEAN CORPUSCULAR HGB 27.2 PG (27.0-31.0); MEAN CORPUSCULAR HGB CONC 32.6 G/DL (33.0-37.0); MEAN CORPUSCULAR VOLUME 83.5 FL (81.0-99.0); MEAN PLATELET VOLUME 7.9 FL (7.4-10.4); PLATELET COUNT 273 /CUMM (130-400); RBC DISTRIBUTION WIDTH 19.6 % (11.5-14.5); RED BLOOD CELL CT 3.08 /CUMM (4.20-5.40)
--- NOTE | 2016-11-17 09:00 | NUR ---
NURSING NOTE: PT VERY DROWSY THIS MORNING BUT AROUSABLE TO VOICE. VSS CHARTED. PT CONTINUES TO BE NPO AT PRESENT TIME. FAMILY REMAINS AT BEDSIDE. JUANY CABRERA #[id number] ANGLIN AWARE. WILL CONTINUE TO MONITOR CLOSELY.
[2016-11-17 09:03] LABS: WHITE BLOOD CELL COUNT 48.7 /CUMM (4.8-10.8)
--- NOTE | 2016-11-17 10:48 | Cons- Infect Disease ---
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 On admission she was afebrile, but she did have a low-grade fever to 100.2 L later that night. Laboratory data revealed a white blood cell count of 34,000, BUN/creatinine 92 and 4.2, bilirubin 1.3, AST 42. Urinalysis greater than 75 WBCs. Chest x-ray revealed mild streaky bibasilar opacities. She was begun on Ceftriaxone for presumed sepsis of urologic origin. On November [address] of the abdomen and pelvis revealed a right lower lobe density, cholelithiasis with a hydropic gallbladder and mild inflammatory changes and mildly distended small bowel loops. A HIDA scan later that day was positive. She has remained afebrile but white blood cell count increased to over 50,000 on November 16, at which time she was changed to Zosyn, after discussion with me. Her mental status has been fluctuating, and she was apparently more alert yesterday. Presently she is unable to provide any history but denies any pain. Allergies/Medications Allergies: Coded Allergies: clonidine (HIVES 02/02/16) Home Med List: Albuterol Sulfate 2.5 MG/3 ML (0.083 %) VIAL.NEB 1 Vial INH/BARBARA 4 TIMES/DAY BREATHING PROBLEMS (Reported) FOR 3 DAYS START 11/14 Allopurinol 100 MG TABLET 0.5 TAB PO DAILY GOUT (Reported) Apixaban (Eliquis) 5 MG TABLET 1 TAB PO BID PE (Reported) Baclofen 10 MG TABLET 0.25 TAB PO BID MUSCLE SPASMS (Reported) Cholecalciferol (Vitamin D3) 1,000 UNIT TABLET 1 TAB PO DAILY SUPPLEMENT ( Reported) Clopidogrel Bisulfate (Clopidogrel) 75 MG TABLET 1 TAB PO DAILY BLOOD THINNER (Reported) Darbepoetin Aldair in Polysorbat (Aranesp) 25 MCG/0.42 ML SYRINGE 1 INJ SC QW ANEMIA (Reported) Ferrous Sulfate 325 MG (65 MG IRON) TABLET 1 TAB PO BID SUPPLEMENT (Reported) Gabapentin 300 MG CAPSULE 1 CAP PO TID UNKNOWN (Reported) Lactobacillus Acidophilus (Acidophilus) 1 EACH CAPSULE 1 CAP PO DAILY GI ( Reported) Levothyroxine Sodium (Synthroid) 50 MCG TABLET 1 TAB PO DAILY AC THYROID ( Reported) Multivitamin (Multiple Vitamins) 1 EACH TABLET 1 TAB PO DAILY SUPPLEMENT ( Reported) Nifedipine (Nifedipine ER) 30 MG TAB.ER.24 1 TAB PO DAILY HBP (Reported) Nitrofurantoin Monohyd/M-Cryst (Nitrofurantoin Keith-Mcr 100 MG) 100 MG CAPSULE 1 CAP PO BID ANTIBIOTIC, INFECTION (Reported) Past History Travel History Traveled to [place] past 21 day No Medical History Blood Transfusion Hx: No Neurological: peripheral neuropathy, TIA, SPINAL STROKE QUADRIPLEGIA following EENT: cataracts (s/p extraction bilaterally) Cardiovascular: diastolic CHF, HTN, PE S/P IVC FILTER PLACEMENT DVT s/p IVC filter placement Respiratory: COPD, pulmonary embolism, pneumonia Gastrointestinal: diverticulitis Hepatic: NONE Renal: neurogenic bladder, CKI Musculoskeletal: gout Psychiatric: NONE Endocrine: hypothyroidism Blood Disorders: anemia, hemoglobin SC trait Cancer(s): NONE [employer]/Reproductive: NONE History of MRSA: No History of VRE: No History of CDIFF: No Isolation History: Standard Pneumonia Vaccine: 06/22/02 Surgical History Surgical History: laminectomy (C3 through C7), lumpectomy, status post IVC filter Family History Relations & Conditions If Any: Relation not specified for: FH: hypertension Psychosocial History Where Do You Live? Extended Care Facility Who Do You Live With? self Services at Home: Nursing, NONE Primary Language: Italian Smoking Status: Never Smoked ETOH Use: denies use Illicit Drug Use: denies illicit drug use Living Will? 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 her daughter Name of POA/HCP: Nichole Functional Ability ADLs Needs Assist: dressing, eating, toileting, bathing. Ambulation: non-ambulatory IADLs Independent: telephone. Needs Assist: shopping, housework, finances, food prep, transportation, medication admin. 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 All Other Systems: Reviewed and Negative Exam & Diagnostic Data Last 24 Hrs of Vital Signs/I&O Vital Signs Date Time Temp Pulse Resp B/P Pulse O2 O2 Flow FiO2 Ox Delivery Rate 11/17 0952 97.4 88 18 106/60 90 Nasal 3.0L Cannula 11/17 0406 96.0 81 16 98/52 93 11/17 0021 96.9 85 16 100/48 92 11/17 0000 Nasal 3.0L Cannula 11/16 2041 97.0 88 16 119/70 90 Nasal 3.0L Cannula 11/16 1600 94 Nasal 3.0L Cannula 11/16 1508 97.7 90 16 116/62 92 Nasal 2.0L Cannula 11/16 1235 97.7 Intake & Output 11/17 1600 11/17 0800 11/17 0000 Intake Total 920 420 Output Total 200 250 Balance 720 170 Intake, IV 800 300 Intake, Oral 120 120 Number 0 Bowel Movements Output, Urine 200 250 Physical Exam Other Physical Findings: She is lethargic, but arousable, and able to answer some questions, in no acute distress. She is afebrile. Skin reveals no rash. HEENT exam is negative. Neck is supple with no adenopathy. Lungs are clear. Heart regular rhythm with no murmur. Abdomen is distended, with questionable tenderness in the upper abdomen, but with no obvious guarding or rebound, positive bowel sounds. Back no CVA tenderness. Extremities no cyanosis, clubbing or edema. Neuro left hemiplegia; 3-4/5 strength right upper extremity; 1-2/5 right lower extremity. Sanchez catheter is in place. Last 24 Hours of Lab Results: Laboratory Tests 11/17 11/17 0836 0059 Chemistry Sodium (137 - 145 mmol/L) 136 L 136 L Potassium (3.5 - 5.1 mmol/L) 3.7 3.9 Chloride (98 - 107 mmol/L) 104 104 Carbon Dioxide (22 - 30 mmol/L) 21 L 17 L Anion Gap (5 - 16) 11 15 BUN (7 - 17 mg/dL) 68 H 71 H Creatinine (0.5 - 1.0 mg/dL) 3.5 H 3.5 H Estimated GFR (>60 ml/min) 13 L 13 L BUN/Creatinine Ratio (7 - 25 %) 19.4 20.3 Hematology CBC w Diff MAN DIFF ORDERED WBC (4.8 - 10.8 /CUMM) 48.7 *H RBC (4.20 - 5.40 /CUMM) 3.08 L Hgb (12.0 - 16.0 G/DL) 8.4 L Hct (37 - 47 %) 25.7 L MCV (81.0 - 99.0 FL) 83.5 MCH (27.0 - 31.0 PG) 27.2 RDW (11.5 - 14.5 %) 19.6 H Plt Count (130 - 400 /CUMM) 273 MPV (7.4 - 10.4 FL) 7.9 Gran % (42.2 - 75.2 %) 92.1 H Lymphocytes % (20.5 - 51.1 %) 4.5 L Monocytes % (1.7 - 9.3 %) 3.4 Eosinophils % (0 - 5 %) 0 Basophils % (0.0 - 2.0 %) 0 L Absolute Granulocytes (1.4 - 6.5 /CUMM) 44.9 H Segmented Neutrophils (42.2 - 75.2 %) 92 H Band Neutrophils (0.0 - 5.0 %) 1 Absolute Lymphocytes (1.2 - 3.4 /CUMM) 2.2 Lymphocytes (20.5 - 51.1 %) 1 L Monocytes (1.7 - 9.3 %) 6 Absolute Monocytes (0.10 - 0.60 /CUMM) 1.7 H Absolute Eosinophils (0.0 - 0.7 /CUMM) 0 Absolute Basophils (0.0 - 0.2 /CUMM) 0 Nucleated RBCs (0.0 - 0.0 /100WBC) 4 H Platelet Estimate (ADEQUATE) VERIFIED BY SMEAR Polychromasia 1+ Poikilocytosis 2+ Anisocytosis 2+ Target Cells 2+ PUBS MCHC (33.0 - 37.0 G/DL) 32.6 L 11/16 1625 Chemistry Sodium (137 - 145 mmol/L) 137 Potassium (3.5 - 5.1 mmol/L) 4.3 Chloride (98 - 107 mmol/L) 107 Carbon Dioxide (22 - 30 mmol/L) 14 L Anion Gap (5 - 16) 17 H BUN (7 - 17 mg/dL) 72 H Creatinine (0.5 - 1.0 mg/dL) 3.6 H Estimated GFR (>60 ml/min) 12 L BUN/Creatinine Ratio (7 - 25 %) 20.0 Coagulation PT (9.4 - 12.5 SEC) 17.0 H INR (0.90 - 1.19) 1.63 H Hematology CBC w Diff NO MAN DIFF REQ WBC (4.8 - 10.8 /CUMM) 50.9 *H RBC (4.20 - 5.40 /CUMM) 3.33 L Hgb (12.0 - 16.0 G/DL) 8.9 L Hct (37 - 47 %) 27.6 L MCV (81.0 - 99.0 FL) 82.8 MCH (27.0 - 31.0 PG) 26.9 L RDW (11.5 - 14.5 %) 20.8 H Plt Count (130 - 400 /CUMM) 302 MPV (7.4 - 10.4 FL) 8.4 Gran % (42.2 - 75.2 %) 94.6 H Lymphocytes % (20.5 - 51.1 %) 1.1 L Monocytes % (1.7 - 9.3 %) 4.2 Eosinophils % (0 - 5 %) 0 Basophils % (0.0 - 2.0 %) 0.1 Absolute Granulocytes (1.4 - 6.5 /CUMM) 48.2 H Absolute Lymphocytes (1.2 - 3.4 /CUMM) 0.6 L Absolute Monocytes (0.10 - 0.60 /CUMM) 2.1 H Absolute Eosinophils (0.0 - 0.7 /CUMM) 0 Absolute Basophils (0.0 - 0.2 /CUMM) 0 PUBS MCHC (33.0 - 37.0 G/DL) 32.5 L Last 24 Hours of Jun Results: Blood cultures November 14 negative Blood culture November 16 negative Blood culture November 17 negative Urine culture November 14 greater than 100,000 colonies of Morganella sensitive to Ceftazidime, Ceftriaxone, Ciprofloxacin and Zosyn and Providencia sensitive to Cefoxitin, Ceftazidime, Ceftriaxone, Ciprofloxacin, Gentamicin, Bactrim and Zosyn Urine culture November 15 negative Diagnostic Data Recent Imaging Findings: Chest x-ray November 14 reveals mild streaky bibasilar opacities CT of the abdomen and pelvis November 15 reveals volume loss involving the right lower lobe with associated density, small bilateral pleural effusions with subsegmental atelectasis, hydropic gallbladder with a single 1.6 cm calcified stone seen in the body of the gallbladder, mild pericholecystic soft tissue stranding, mildly distended small bowel loops, with a 1 cm appendix with only minimal surrounding soft tissue stranding HIDA scan November 15 reveals absence of gallbladder activity consistent with cystic duct obstruction Assessment/Plan Assessment/Plan Impression: This is an 81-year-old woman, quadriparetic since a spinal artery stroke nearly 3 years prior to admission, maintained on Eliquis for recurrent pulmonary emboli , admitted on November 14 after found to be febrile with a leukocytosis at the shelter, with workup including CT of the abdomen and HIDA scan suggestive of acute cholecystitis. She will require either a cholecystostomy or cholecystectomy, with the former favored due to her overall condition, and this will apparently be pursued once she has been off Eliquis for several days. This does appear to be the most likely explanation for her leukocytosis. Her antibiotics were broadened yesterday to cover anaerobes and Enterococcus in addition to gram negatives, and she can be continued on this regimen pending cultures from the gallbladder. The positive urine culture is of unclear significance and likely represent asymptomatic bacteriuria, as the organisms isolated were sensitive to Ceftriaxone, and, in the absence of renal obstruction on the CT scan, would have expected the white blood cell count to have normalized on Ceftriaxone. Suggestion: 1. Await cholecystostomy tube placement per Surgery 2. Send cultures of the bile when the above procedure is performed 3. Would remove Sanchez catheter 4. Continue Zosyn pending above Consult Acknowledgment - Thank you for your consult request.
--- NOTE | 2016-11-17 13:45 | PN- Nephrology ---
Assessment/Plan Assessment: Acute kidney injury: I suspect ATN secondary to sepsis. FeNa elevated. Obstructive uropathy is been ruled out on imaging. Urinalysis is not consistent with glomerular disease. From a volume standpoint becoming a bit fluid overloaded based on chest x-ray; would lower IV fluids to 40 mL per hour of D5 NS. Hemodialysis not currently warranted. Metabolic acidosis: Improved. Bicarbonate drip was stopped this morning. Severe leukocytosis: Most obvious source of the acute cholecystitis. Plans in process for cholecystostomy tube. Blood thinners were held yesterday. Antibiotics were broadened by infectious disease. Closely monitor for worsening sepsis; she may require ICU transfer if becomes hypotensive. Suggestion: lower IV fluids D5NS at 40 mL per hour Agree with arrangements for cholecystostomy tube Antibiotics per infectious disease If hypotension worsens then would require ICU transfer for pressor support Subjective Subjective: Somewhat more lethargic today She's been nothing by mouth and IV fluids White blood cell count codie to 50,000; 49,000 this morning Infectious diseases on board who recommended a cholecystostomy tube Blood thinners were held yesterday Creatinine improved slightly to 3.5 with urine output of approximately 950 mL in past 24 hrs Acidosis improved with bicarbonate drip Arciniega catheter was removed this am Chest x-ray revealed increase in the right pleural effusion Review of Systems: Denies abdominal pain nausea.vomiting or diarrhea Objective Vital Signs and I&Os Vital Signs Date Time Temp Pulse Resp B/P Pulse O2 O2 Flow FiO2 Ox Delivery Rate 11/17 1331 97.6 93 19 118/58 93 Nasal 5.0L Cannula 11/17 0952 97.4 88 18 106/60 90 Nasal 3.0L Cannula 11/17 0406 96.0 81 16 98/52 93 11/17 0021 96.9 85 16 100/48 92 11/17 0000 Nasal 3.0L Cannula 11/16 2041 97.0 88 16 119/70 90 Nasal 3.0L Cannula 11/16 1600 94 Nasal 3.0L Cannula 11/16 1508 97.7 90 16 116/62 92 Nasal 2.0L Cannula Intake & Output 11/17 1600 11/17 0400 11/16 1600 11/16 0400 11/15 1600 11/15 0400 Intake Total 240 279 3022 600 2080 100 Output Total 200 250 700 625 500 310 Balance 720 170 500 -25 1580 -210 Intake, IV 652 757 5332 600 1400 Intake, Oral 120 120 680 100 Number 0 1 1 Bowel Movements Output, Urine 200 250 700 625 500 310 Patient 136 lb Weight Physical Exam: General: NAD HEENT: NC/AT. No icterus. Moist mucosa Neck: negative for ALEX, JVD CV: RRR, no m/r/g Pulm: dec BS at bases Abd: soft, NT/ND, negative renal bruits Lower Ext: neg edema Skin: Stage I sacral decubitus and back : no arciniega catheter neuro: Quadriplegic Current Medications: Current Medications Sig/Kobi Start time Last Medication Dose Route Stop Time Status Admin Acetaminophen 650 MG Q6P PRN 11/14 161 AC PO Acetaminophen 1,000 MG Q6P PRN 11/14 1615 AC IV Allopurinol 50 MG DAILY 11/15 1000 AC 11/17 PO 0924 Baclofen 2.5 MG BID 11/14 2200 AC 11/17 PO 0924 Ceftriaxone Sodium 1,000 MG DAILY 11/15 1000 DC 11/16 IV 0949 Cholecalciferol 1,000 IU DAILY 11/15 1000 AC 11/17 PO 0924 Dextrose/Sodium 1,000 ML Q13H 11/17 1015 AC 11/17 Chloride IV 1013 Ferrous Sulfate 325 MG BID 11/14 2200 AC 11/17 PO 0924 Gabapentin 100 MG DAILY 11/14 1600 AC 11/17 PO 0924 Lactobacillus 1 CAP DAILY 11/15 1000 AC 11/17 Acidophilus PO 0924 Levothyroxine Sodium 0.05 MG DAILY AC 11/15 0700 AC 11/17 PO 0557 Metronidazole 500 MG IQ8 11/16 1600 CAN N/A 1 UNIT IV Morphine Sulfate 1 MG Q6-PRN PRN 11/14 1615 AC IV Multivitamins 1 TAB DAILY 11/15 1000 AC 11/17 Therapeutic PO 0924 Non-Formulary 0 SEE ADMIN CRITERIA 11/16 1415 CAN Medication ANY Piperacillin Sod/ 2.25 GM Q8H 11/17 0000 AC 11/17 Tazobactam Sod IV 0827 Sodium Chloride 50 ML Piperacillin Sod/ 2.25 GM Q8 11/16 1430 DC 11/16 Tazobactam Sod IV 1644 Sodium Chloride 50 ML Sodium Bicarbonate 150 MEQ Q10H 11/16 1300 DC 11/17 Dextrose/Water 1,000 ML IV 0011 Results Pertinent Lab Results: Laboratory Tests 11/17 11/17 0836 0059 Chemistry Sodium (137 - 145 mmol/L) 136 L 136 L Potassium (3.5 - 5.1 mmol/L) 3.7 3.9 Chloride (98 - 107 mmol/L) 104 104 Carbon Dioxide (22 - 30 mmol/L) 21 L 17 L Anion Gap (5 - 16) 11 15 BUN (7 - 17 mg/dL) 68 H 71 H Creatinine (0.5 - 1.0 mg/dL) 3.5 H 3.5 H Estimated GFR (>60 ml/min) 13 L 13 L BUN/Creatinine Ratio (7 - 25 %) 19.4 20.3 Hematology CBC w Diff MAN DIFF ORDERED WBC (4.8 - 10.8 /CUMM) 48.7 *H RBC (4.20 - 5.40 /CUMM) 3.08 L Hgb (12.0 - 16.0 G/DL) 8.4 L Hct (37 - 47 %) 25.7 L MCV (81.0 - 99.0 FL) 83.5 MCH (27.0 - 31.0 PG) 27.2 RDW (11.5 - 14.5 %) 19.6 H Plt Count (130 - 400 /CUMM) 273 MPV (7.4 - 10.4 FL) 7.9 Gran % (42.2 - 75.2 %) 92.1 H Lymphocytes % (20.5 - 51.1 %) 4.5 L Monocytes % (1.7 - 9.3 %) 3.4 Eosinophils % (0 - 5 %) 0 Basophils % (0.0 - 2.0 %) 0 L Absolute Granulocytes (1.4 - 6.5 /CUMM) 44.9 H Segmented Neutrophils (42.2 - 75.2 %) 92 H Band Neutrophils (0.0 - 5.0 %) 1 Absolute Lymphocytes (1.2 - 3.4 /CUMM) 2.2 Lymphocytes (20.5 - 51.1 %) 1 L Monocytes (1.7 - 9.3 %) 6 Absolute Monocytes (0.10 - 0.60 /CUMM) 1.7 H Absolute Eosinophils (0.0 - 0.7 /CUMM) 0 Absolute Basophils (0.0 - 0.2 /CUMM) 0 Nucleated RBCs (0.0 - 0.0 /100WBC) 4 H Platelet Estimate (ADEQUATE) VERIFIED BY SMEAR Polychromasia 1+ Poikilocytosis 2+ Anisocytosis 2+ Target Cells 2+ PUBS MCHC (33.0 - 37.0 G/DL) 32.6 L 11/16 11/16 1625 0732 Chemistry Sodium (137 - 145 mmol/L) 137 138 Potassium (3.5 - 5.1 mmol/L) 4.3 4.6 Chloride (98 - 107 mmol/L) 107 110 H Carbon Dioxide (22 - 30 mmol/L) 14 L 12 L Anion Gap (5 - 16) 17 H 15 BUN (7 - 17 mg/dL) 72 H 74 H Creatinine (0.5 - 1.0 mg/dL) 3.6 H 3.7 H Estimated GFR (>60 ml/min) 12 L 12 L BUN/Creatinine Ratio (7 - 25 %) 20.0 20.0 Coagulation PT (9.4 - 12.5 SEC) 17.0 H INR (0.90 - 1.19) 1.63 H Hematology CBC w Diff NO MAN DIFF REQ MAN DIFF ORDERED WBC (4.8 - 10.8 /CUMM) 50.9 *H 41.7 *H RBC (4.20 - 5.40 /CUMM) 3.33 L 3.14 L Hgb (12.0 - 16.0 G/DL) 8.9 L 8.6 L Hct (37 - 47 %) 27.6 L 26.5 L MCV (81.0 - 99.0 FL) 82.8 84.3 MCH (27.0 - 31.0 PG) 26.9 L 27.5 RDW (11.5 - 14.5 %) 20.8 H 19.9 H Plt Count (130 - 400 /CUMM) 302 267 MPV (7.4 - 10.4 FL) 8.4 9.1 Gran % (42.2 - 75.2 %) 94.6 H 93.9 H Lymphocytes % (20.5 - 51.1 %) 1.1 L 2.1 L Monocytes % (1.7 - 9.3 %) 4.2 4.0 Eosinophils % (0 - 5 %) 0 0 Basophils % (0.0 - 2.0 %) 0.1 0 L Absolute Granulocytes (1.4 - 6.5 /CUMM) 48.2 H 39.1 H Segmented Neutrophils (42.2 - 75.2 %) 94 H Band Neutrophils (0.0 - 5.0 %) 1 Absolute Lymphocytes (1.2 - 3.4 /CUMM) 0.6 L 0.9 L Lymphocytes (20.5 - 51.1 %) 1 L Monocytes (1.7 - 9.3 %) 4 Absolute Monocytes (0.10 - 0.60 /CUMM) 2.1 H 1.7 H Absolute Eosinophils (0.0 - 0.7 /CUMM) 0 0 Absolute Basophils (0.0 - 0.2 /CUMM) 0 0 Nucleated RBCs (0.0 - 0.0 /100WBC) 4 H Platelet Estimate (ADEQUATE) VERIFIED BY SMEAR Polychromasia 1+ Poikilocytosis 2+ Anisocytosis 2+ Target Cells 2+ [place] Cells 1+ PUBS MCHC (33.0 - 37.0 G/DL) 32.5 L 32.6 L 11/15 11/15 1900 1900 Urines Urine Color (YEL,AMB,STR) YEL Urine Clarity (CLEAR) CLEAR Urine pH (5.0 - 8.0) 6.0 Ur Specific [place] (1.001 - 1.035) 1.010 Urine Protein (NEG,<30 MG/DL) 30 H Urine Ketones (NEG) NEG Urine Nitrite (NEG) NEG Urine Bilirubin (NEG) NEG Urine Urobilinogen (0.1 - 1.0 EU/dl) 0.2 Ur Leukocyte Esterase (NEG) MOD H Ur Microscopic SEDIMENT EXAMINED Urine RBC (0 - 5 /HPF) 1-3 Urine WBC (0 - 2 /HPF) 10-15 H Ur Epithelial Cells (NONE,FEW) FEW Urine Hemoglobin (NEG) MOD H Ur Random Creatinine (mg/dL) 26.5 Ur Random Sodium (30 - 90 mmol/L) 29 L Ur Random Potassium (mmol/L) 15.5 Fraction Sodium Excret (<1% %) 3.1 H Urine Glucose (N MG/DL) NEG 11/15 0624 Chemistry Sodium (137 - 145 mmol/L) 137 Potassium (3.5 - 5.1 mmol/L) 4.6 Chloride (98 - 107 mmol/L) 109 H Carbon Dioxide (22 - 30 mmol/L) 16 L Anion Gap (5 - 16) 12 BUN (7 - 17 mg/dL) 81 H Creatinine (0.5 - 1.0 mg/dL) 3.9 H Estimated GFR (>60 ml/min) 11 L BUN/Creatinine Ratio (7 - 25 %) 20.8 Total Bilirubin (0.2 - 1.3 mg/dL) 0.8 Direct Bilirubin (< 0.4 mg/dL) 0.7 H AST (14 - 36 U/L) 42 H ALT (9 - 52 U/L) 24 Alkaline Phosphatase (<127 U/L) 64 Total Protein (6.3 - 8.2 g/dL) 5.1 L Albumin (3.5 - 5.0 g/dL) 2.4 L Hematology CBC w Diff MAN DIFF ORDERED WBC (4.8 - 10.8 /CUMM) 35.6 *H RBC (4.20 - 5.40 /CUMM) 2.45 L Hgb (12.0 - 16.0 G/DL) 6.7 *L Hct (37 - 47 %) 20.3 L MCV (81.0 - 99.0 FL) 82.9 MCH (27.0 - 31.0 PG) 27.1 RDW (11.5 - 14.5 %) 20.0 H Plt Count (130 - 400 /CUMM) 254 MPV (7.4 - 10.4 FL) 8.8 Gran % (42.2 - 75.2 %) 89.5 H Lymphocytes % (20.5 - 51.1 %) 3.5 L Monocytes % (1.7 - 9.3 %) 6.9 Eosinophils % (0 - 5 %) 0.1 Basophils % (0.0 - 2.0 %) 0 L Absolute Granulocytes (1.4 - 6.5 /CUMM) 31.9 H Segmented Neutrophils (42.2 - 75.2 %) 84 H Band Neutrophils (0.0 - 5.0 %) 2 Absolute Lymphocytes (1.2 - 3.4 /CUMM) 1.3 Lymphocytes (20.5 - 51.1 %) 4 L Monocytes (1.7 - 9.3 %) 10 H Absolute Monocytes (0.10 - 0.60 /CUMM) 2.4 H Absolute Eosinophils (0.0 - 0.7 /CUMM) 0 Absolute Basophils (0.0 - 0.2 /CUMM) 0 Nucleated RBCs (0.0 - 0.0 /100WBC) 2 H Platelet Estimate (ADEQUATE) VERIFIED BY SMEAR Hypochromic-Microcytic 1+ Poikilocytosis 1+ Anisocytosis 1+ Target Cells 1+ PUBS MCHC (33.0 - 37.0 G/DL) 32.7 L
--- NOTE | 2016-11-17 13:45 | NUR ---
NURSING NOTE: PT CONTINUES TO BE DROWSY BUT AROUSABLE. O2 SAT ON 3L 86%, ON 5L PT O2 SAT NOW 93%. JUANY LOU #[id number] AWARE AND STAT CHEST XRAY ORDERD. PT DOES NOT APPEAR TO BE IN ANY DISTRESS AND ALL OTHER VSS CHARTED. FAMILY REMAINS AT PT BEDSIDE. WILL CONTINUE TO MONITOR CLOSELY.
--- NOTE | 2016-11-17 14:01 | Event Note ---
Event Note Event Note: SITUATION: * Increased lethargy * Concern for pulmonary congestion BRIEF: * Current diagnosis of cholecystitis with conservative management thus far in the setting of Eliquis and Plavix that were both discontinued on 11/15/2016 * Previous evaluation by surgery: Patient has been deemed very high risk for general anesthesia based on her comorbidities * Over the past 48hrs she has had increased oxygen requirements * Stat CXR this morning: Moderate haziness right lung base has increased since 11/13/2016 exam. This is suggestive of pleural effusion with underlying infiltrate or atelectasis. Left lung base retrocardiac opacity may represent underlying effusion/infiltrate or atelectasis. The findings in the right lung has increased since the previous study. Recommend CT chest without contrast for correlation. Cardiomegaly without congestion. Previous CT chest 10/25/2015 revealed bilateral posterior pleural thickening and minimal atelectasis. * Recommendations from Dr Rodriguez (nephrology): In the setting of LILLIE + low HCO, pt was on D5W w/ 150mEq HCO on friday. Once HCO corrected to >18, we put her back on maintenance D5W w/ NS at 40/hr * I had a chance to speak with the interventional radiologist Morgan Wan MD on friday afternoon. Her primary concern is the patient's extremely high risk of bleeding with the recent discontinuation of Eliquis and Plavix on 11/15/2016 * We also had the opportunity to speak with the patient's daughters with regards to the current progression and what the patient's and family's wishes would be in the event she were to start declining A/P: * Morgan Wan MD will speak with covering physician Dr. Lanier with regards to risk/benefit of continuing to monitor versus proceeding with insertion of percutaneous drain * Her BP is relatively stable as of this afternoon * Will follow up with family's decision
--- NOTE | 2016-11-17 14:06 | RADIOLOGY REPORT ---
EXAMINATION: XR PORTABLE CHEST CLINICAL INFORMATION: Pulmonary congestion. COMPARISON: Chest 11/14/2016. CT chest 10/25/2015. TECHNIQUE: Portable AP view of the chest was obtained. FINDINGS: Both lungs are hypoexpanded. There is elevated right hemidiaphragm with soft tissue thickening or effusion along the right lateral pleural space. Right basilar atelectasis/ infiltrate is not excluded. There is opacification of retrocardiac left lung base as well from underlying infiltrate/atelectasis or effusion. Heart size is enlarged with normal pulmonary vascularity. No gross bony abnormality seen. IMPRESSION: Moderate haziness right lung base has increased since 11/13/2016 exam. This is suggestive of pleural effusion with underlying infiltrate or atelectasis. Left lung base retrocardiac opacity may represent underlying effusion/infiltrate or atelectasis. The findings in the right lung has increased since the previous study. Recommend CT chest without contrast for correlation. Cardiomegaly without congestion. Previous CT chest 10/25/2015 revealed bilateral posterior pleural thickening and minimal atelectasis.
[2016-11-18] VITALS (7 sets, daily range): BP systolic 94–158; BP diastolic 44–78
--- NOTE | 2016-11-18 00:43 | NUR ---
DROWSY BUT AROUSABLE. DENIES CHEST PAIN. + PULSES PATIENT TURNED AND REPOSITIONED Q2HRS. NO DISTRESS NOTED 1700 [employer] AWARE OF TEMPERATURE. 1800 TEMPERATURE RECHECKED
--- NOTE | 2016-11-18 09:08 | PN- Housestaff ---
TAMERA METZ,MARIUM 11/18/16 0908: Subjective Follow-up For: Acute cholecystitis Complaints: pt unable to provide hx Subjective: She is sleeping in the bed, arousable. She denies any fever/chills, abdominal pain. Review of Systems Constitutional: Denies: chills, fever, weakness. EENTM: Reports: no symptoms. Cardiovascular: Reports: no symptoms. Respiratory: Denies: cough, short of breath, sputum production, wheezing. Gastrointestinal: Reports: bloating, distention. Denies: abdominal pain, diarrhea, nausea, vomiting. Genitourinary: Reports: no symptoms. Musculoskeletal: Reports: no symptoms. Skin: Reports: no symptoms. Neurological/Psychological: Reports: pre-existing deficit. Hematologic/Endocrine: Reports: no symptoms. Immunologic/Allergic: Reports: no symptoms. Objective Last 24 Hrs of Vital Signs/I&O Vital Signs Date Time Temp Pulse Resp B/P Pulse O2 O2 Flow FiO2 Ox Delivery Rate 11/18 0838 97.9 88 16 105/53 92 Nasal 5.0L Cannula 11/18 0800 93 Nasal 5.0L Cannula 11/18 0511 97.5 78 16 101/45 92 11/18 0249 88 108/48 93 11/18 0054 96.2 11/18 0034 84 16 94/44 93 11/18 0000 91 Nasal 5.0L Cannula 11/17 1848 97.5 88 20 11/68 93 Nasal 5.0L Cannula 11/17 1758 97.5 88 16 110/68 93 Nasal 5.0L Cannula 11/17 1615 96.0 84 20 108/60 94 Nasal 5.0L Cannula 11/17 1613 96.0 85 16 99/50 93 Nasal 5.0L Cannula 11/17 1600 Nasal 5.0L Cannula 11/17 1331 97.6 93 19 118/58 93 Nasal 5.0L Cannula Intake & Output 11/18 1600 11/18 0800 11/18 0000 Intake Total 380 Output Total Balance 380 Intake, IV 380 Number 1 Bowel Movements Physical Exam General Appearance: Cooperative, No Acute Distress, drowsy, arousable Skin: No Rashes, No Breakdown, No Significant Lesion HEENT: Atraumatic, PERRLA, EOMI, dry mouth Neck: No JVD, No thryomegaly, No LAD Lymphatic: Cervical nl Cardiovascular: Regular Rate, Normal S1, Normal S2, No Murmurs Lungs: Clear to Auscultation, Normal Air Movement Abdomen: Normal Bowel Sounds, Soft, No Tenderness Neurological: Normal Speech, paraplegia Extremities: No Edema, Normal Pulses, No Tenderness/Swelling Vascular: Normal Pulses, Pulses Symmetrical Current Medications: Current Medications Sig/Kobi Start time Last Medication Dose Route Stop Time Status Admin Acetaminophen 650 MG Q6P PRN 11/14 161 AC PO Acetaminophen 1,000 MG Q6P PRN 11/14 1615 AC IV Allopurinol 50 MG DAILY 11/15 1000 AC 11/18 PO 0902 Baclofen 2.5 MG BID 11/14 2200 AC 11/18 PO 0902 Cholecalciferol 1,000 IU DAILY 11/15 1000 AC 11/18 PO 0902 Dextrose/Sodium 1,000 ML Q13H 11/17 1015 AC 11/18 Chloride IV 0711 Ferrous Sulfate 325 MG BID 11/14 2200 AC 11/18 PO 0902 Gabapentin 100 MG DAILY 11/14 1600 AC 11/18 PO 0902 Lactobacillus 1 CAP DAILY 11/15 1000 AC 11/18 Acidophilus PO 0902 Levothyroxine Sodium 0.05 MG DAILY AC 11/15 0700 AC 11/17 PO 0557 Morphine Sulfate 1 MG Q6-PRN PRN 11/14 161 AC IV Multivitamins 1 TAB DAILY 11/15 1000 AC 11/18 Therapeutic PO 0902 Piperacillin Sod/ 2.25 GM Q8H 11/17 0000 AC 11/18 Tazobactam Sod IV 0902 Sodium Chloride 50 ML Last 24 Hrs of Lab/Jun Results Last 24 Hrs of Labs/Mics: Laboratory Tests 11/18/16 0830: Anion Gap 13, Estimated GFR 13 L, BUN/Creatinine Ratio 19.1 11/18/16 0620: CBC w Diff MAN DIFF ORDERED, RBC 3.03 L, MCV 83.4, MCH 27.2, RDW 20.7 H, MPV 9.1, Gran % 94.8 H, Lymphocytes % 2.1 L, Monocytes % 3.1, Eosinophils % 0, Basophils % 0 L, Absolute Granulocytes 44.9 H, Segmented Neutrophils 95 H, Band Neutrophils 3, Absolute Lymphocytes 1.0 L, Lymphocytes 2 L, Absolute Monocytes 1.4 H, Absolute Eosinophils 0, Absolute Basophils 0, Nucleated RBCs 3 H, Platelet Estimate VERIFIED BY SMEAR, Polychromasia 1+, Poikilocytosis 3+, Anisocytosis 2+, Target Cells 2+, [place] Cells 1+, Schistocytes , PUBS MCHC 32.6 L Microbiology 11/18 0938 BODY FLUID: Body Fluid Culture - COLB 11/18 937 BODY FLUID: Gram Stain - COLB 11/17 1615 STOOL: Clostridium difficile Toxin A & B - RECD Lines/Diet/Fluids Lines: peripheral lines Assessment/Plan Assessment: 1. Sepsis secondary to acute cholecystitis: * Source of infection is most likely from acute cholecystitis. ID consult is appreciated. pt is on IV zosyn #3 to cover anaerobes and Enterococcus. WBC slightly improved. * Urine cultures positive for morganella morganii, providencia * Urine culture sent from [facility] was canceled as it has contamination. She was on nitrofurantoin from [facility]. 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 She had a history of renal artery stent from [facility] few years ago (not sure about which kidney) 2. Acute kidney injury/metabolic acidosis * Likely from ATN secondary to sepsis with FeNa 3%. She was given D5W 150 mEq of bicarbonate at 100 mL an hour during weekend. Bicarb was increased to 21. * IV fluid was decreased to d5 NS @ 40cc/hr with pulmonary congetion from CXR. 3. Cholelithiasis with hydropic gallbladder: * Eliquis and Plavix on hold from 11/15. * Will go for cholecystostomy tube placement by IR today with biliary drainage culture -> This plan was discussed with her daughter Luz. * CT abdomen/pelvis showed cholelithiasis with mild inflammation and HIDA scan comfirmed acute cholecystitis. She remains asymptomatic. 4. 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 c/w baclofen for spasticity & gabapentin 5. Hx of DVT/PE s/p IVC filter: * Holding Eliquis and Plavix at this time in anticipation of probable intervention 6. Hypothyroidism: * c/w levothyroxine 50mcg daily 7. HTN: hold nifedipine for borderline BP. 8. Acute on chronic anemia: likely from dilution / volume expansion. No active signs of bleeding, she denies any history of hematuria/melena/bright red per rectum. Last colonoscopy about 10 years ago without abnormal results (from [place]). Will give 1 PRBC, guiac stool, monitor pt. 9. Dilated appendix: about 10mm, low clinical suspicion for acute appendicitis per surgery. DVT ppx: po eliquis on hold, ALPS for now, full code. Problem List: 1. Sepsis 2. Acute cholecystitis 3. UTI (urinary tract infection) 4. Acute kidney injury Pain Ratin Pain Location: NA Pain Goal: Pain 4 or less Pain Plan: po tyrenol IV tyrenol IV morphine Tomorrow's Labs & Rationales: CBC : sepsis, leukocytosis BEP : LILLIE DVT/Prophylaxis: mechanical Consulting Request: 1 Consulting Specialty: Infectious Disease Consulting Physician: Dr. Carlos Reason for Consult: Sepsis, acute cholecystitis Consulting Request: 2 Consulting Specialty: General Surgery Consulting Physician: Dr. Walls Reason for Consult: Acute cholecystitis Consulting Request: 3 Consulting Specialty: Neurology Consulting Physician: Dr. Rodriguez Reason for Consult: LILLIE, metabolic acidosis Discharge Plan Stable for Discharge? No CANDE ELIZONDO MD 11/18/16 1443: Attending MD Review Statement Attending Statement Attending MD Statement: examined this patient, discuss w/resident/PA/[employer], agreed w/resident/PA/[employer], discussed with family, reviewed EMR data (avail), discussed with nursing, discussed with case mgmt, amended to note Attending Assessment/Plan: The patient was seen and discussed with house staff. Spoke with Radiology and will place choledocho tube (risk of bleed is low off of Eliquis and Plavix since 11/15). The patient is septic with presumed biliary source.
[2016-11-18 09:11] LABS: ABSOLUTE BASOPHIL COUNT 0 /CUMM (0.0-0.2); ABSOLUTE EOSINOPHIL COUNT 0 /CUMM (0.0-0.7); ABSOLUTE GRANULOCYTE CT 44.9 /CUMM (1.4-6.5); ABSOLUTE MONOCYTE COUNT 1.4 /CUMM (0.10-0.60); BASOPHIL % 0 % (0.0-2.0); EOSINOPHIL % 0 % (0-5); GRANULOCYTE % 94.8 % (42.2-75.2); HEMATOCRIT 25.3 % (37-47); MEAN CORPUSCULAR HGB 27.2 PG (27.0-31.0); MEAN CORPUSCULAR HGB CONC 32.6 G/DL (33.0-37.0); MEAN CORPUSCULAR VOLUME 83.4 FL (81.0-99.0); MEAN PLATELET VOLUME 9.1 FL (7.4-10.4); PLATELET COUNT 321 /CUMM (130-400); RBC DISTRIBUTION WIDTH 20.7 % (11.5-14.5); RED BLOOD CELL CT 3.03 /CUMM (4.20-5.40)
--- NOTE | 2016-11-18 09:23 | PN- General Surgery ---
Subjective Subjective: arousable. sleepy. less oriented. denies pain. Objective Vital Signs and I&Os Vital Signs Date Time Temp Pulse Resp B/P Pulse O2 O2 Flow FiO2 Ox Delivery Rate 11/18 0838 97.9 88 16 105/53 92 Nasal 5.0L Cannula 11/18 0511 97.5 78 16 101/45 92 11/18 0249 88 108/48 93 11/18 0054 96.2 11/18 0034 84 16 94/44 93 11/18 0000 91 Nasal 5.0L Cannula 11/17 1848 97.5 88 20 11/68 93 Nasal 5.0L Cannula 11/17 1758 97.5 88 16 110/68 93 Nasal 5.0L Cannula 11/17 1615 96.0 84 20 108/60 94 Nasal 5.0L Cannula 11/17 1613 96.0 85 16 99/50 93 Nasal 5.0L Cannula 11/17 1600 Nasal 5.0L Cannula 11/17 1331 97.6 93 19 118/58 93 Nasal 5.0L Cannula 11/17 0952 97.4 88 18 106/60 90 Nasal 3.0L Cannula Intake & Output 11/18 1600 11/18 0800 11/18 0000 11/17 1600 11/17 0800 11/17 0000 Intake Total 380 600 920 420 Output Total 250 200 250 Balance 380 350 720 170 Intake, IV 380 600 800 300 Intake, Oral 0 120 120 Number 1 0 Bowel Movements Output, Urine 250 200 250 Physical Exam: gen: looks tired. nad. normal habitus heent; anicteric. perrl. emoi abd; soft, nt, nd. Current Medications: Current Medications Sig/Kobi Start time Last Medication Dose Route Stop Time Status Admin Acetaminophen 650 MG Q6P PRN 11/14 161 AC PO Acetaminophen 1,000 MG Q6P PRN 11/14 1615 AC IV Allopurinol 50 MG DAILY 11/15 1000 AC 11/18 PO 0902 Baclofen 2.5 MG BID 11/14 2199 AC 11/18 PO 0902 Cholecalciferol 1,000 IU DAILY 11/15 1000 AC 11/18 PO 0902 Dextrose/Sodium 1,000 ML Q13H 11/17 1015 AC 11/18 [place] 0711 Ferrous Sulfate 325 MG BID 11/14 2199 AC 11/18 PO 0902 Gabapentin 100 MG DAILY 11/14 1600 AC 11/18 PO 0902 Lactobacillus 1 CAP DAILY 11/15 1000 AC 11/18 Acidophilus PO 0902 Levothyroxine Sodium 0.05 MG DAILY AC 11/15 0700 AC 11/17 PO 0557 Morphine Sulfate 1 MG Q6-PRN PRN 11/14 1615 AC IV Multivitamins 1 TAB DAILY 11/15 1000 AC 11/18 Therapeutic PO 0902 Piperacillin Sod/ 2.25 GM Q8H 11/17 0000 AC 11/18 Tazobactam Sod IV 0902 Sodium Chloride 50 ML Sodium Bicarbonate 150 MEQ Q10H 11/16 1300 DC 11/17 Dextrose/Water 1,000 ML IV 0011 Results Last 48 Hours of Labs: Laboratory Tests 11/18 11/18 11/17 0830 0620 0836 Chemistry Sodium (137 - 145 mmol/L) Pending 136 L Potassium (3.5 - 5.1 mmol/L) Pending 3.7 Chloride (98 - 107 mmol/L) Pending 104 Carbon Dioxide (22 - 30 mmol/L) Pending 21 L Anion Gap (5 - 16) Pending 11 BUN (7 - 17 mg/dL) Pending 68 H Creatinine (0.5 - 1.0 mg/dL) Pending 3.5 H Estimated GFR (>60 ml/min) 13 L BUN/Creatinine Ratio (7 - 25 %) Pending 19.4 Hematology CBC w Diff Pending MAN DIFF ORDERED WBC (4.8 - 10.8 /CUMM) Pending 48.7 *H RBC (4.20 - 5.40 /CUMM) Pending 3.08 L Hgb (12.0 - 16.0 G/DL) Pending 8.4 L Hct (37 - 47 %) Pending 25.7 L MCV (81.0 - 99.0 FL) Pending 83.5 MCH (27.0 - 31.0 PG) Pending 27.2 RDW (11.5 - 14.5 %) Pending 19.6 H Plt Count (130 - 400 /CUMM) Pending 273 MPV (7.4 - 10.4 FL) Pending 7.9 Gran % (42.2 - 75.2 %) 92.1 H Lymphocytes % (20.5 - 51.1 %) 4.5 L Monocytes % (1.7 - 9.3 %) 3.4 Eosinophils % (0 - 5 %) 0 Basophils % (0.0 - 2.0 %) 0 L Absolute Granulocytes (1.4 - 6.5 /CUMM) 44.9 H Segmented Neutrophils (42.2 - 75.2 %) 92 H Band Neutrophils (0.0 - 5.0 %) 1 Absolute Lymphocytes (1.2 - 3.4 /CUMM) 2.2 Lymphocytes (20.5 - 51.1 %) 1 L Monocytes (1.7 - 9.3 %) 6 Absolute Monocytes (0.10 - 0.60 /CUMM) 1.7 H Absolute Eosinophils (0.0 - 0.7 /CUMM) 0 Absolute Basophils (0.0 - 0.2 /CUMM) 0 Nucleated RBCs (0.0 - 0.0 /100WBC) 4 H Platelet Estimate (ADEQUATE) VERIFIED BY SMEAR Polychromasia 1+ Poikilocytosis 2+ Anisocytosis 2+ Target Cells 2+ PUBS MCHC (33.0 - 37.0 G/DL) Pending 32.6 L 11/17 11/16 0059 1625 Chemistry Sodium (137 - 145 mmol/L) 136 L 137 Potassium (3.5 - 5.1 mmol/L) 3.9 4.3 Chloride (98 - 107 mmol/L) 104 107 Carbon Dioxide (22 - 30 mmol/L) 17 L 14 L Anion Gap (5 - 16) 15 17 H BUN (7 - 17 mg/dL) 71 H 72 H Creatinine (0.5 - 1.0 mg/dL) 3.5 H 3.6 H Estimated GFR (>60 ml/min) 13 L 12 L BUN/Creatinine Ratio (7 - 25 %) 20.3 20.0 Coagulation PT (9.4 - 12.5 SEC) 17.0 H INR (0.90 - 1.19) 1.63 H Hematology CBC w Diff NO MAN DIFF REQ WBC (4.8 - 10.8 /CUMM) 50.9 *H RBC (4.20 - 5.40 /CUMM) 3.33 L Hgb (12.0 - 16.0 G/DL) 8.9 L Hct (37 - 47 %) 27.6 L MCV (81.0 - 99.0 FL) 82.8 MCH (27.0 - 31.0 PG) 26.9 L RDW (11.5 - 14.5 %) 20.8 H Plt Count (130 - 400 /CUMM) 302 MPV (7.4 - 10.4 FL) 8.4 Gran % (42.2 - 75.2 %) 94.6 H Lymphocytes % (20.5 - 51.1 %) 1.1 L Monocytes % (1.7 - 9.3 %) 4.2 Eosinophils % (0 - 5 %) 0 Basophils % (0.0 - 2.0 %) 0.1 Absolute Granulocytes (1.4 - 6.5 /CUMM) 48.2 H Absolute Lymphocytes (1.2 - 3.4 /CUMM) 0.6 L Absolute Monocytes (0.10 - 0.60 /CUMM) 2.1 H Absolute Eosinophils (0.0 - 0.7 /CUMM) 0 Absolute Basophils (0.0 - 0.2 /CUMM) 0 PUBS MCHC (33.0 - 37.0 G/DL) 32.5 L Assessment/Plan Assessment/Plan acute cholecystitis. poor operative risk. plan percutaneous cholecystostomy tube today. d/w ir. culture fluid. continue abx per ID
[2016-11-18 09:32] LABS: WHITE BLOOD CELL COUNT 47.3 /CUMM (4.8-10.8)
--- NOTE | 2016-11-18 11:47 | PN- Nephrology ---
Assessment/Plan Assessment: LILLIE - Clinical situation and labs c/w ATN from sepsis. Oliguric over the last day with net positive volume status. Respiratory status seems OK. Reasonable to continue IVF at low rate (40cc/hr) for now but will likely recommend stopping them soon. Cholecystitis UTI Suggestion: -Cont IVF at current rate of 40cc/hr for now - will likely recommend stopping tomorrow -Hold IVF is s/s of respiratory distress Subjective Subjective: Pt lethargic - says, "I am going to " UOP down to 450cc Creatinine stable - 3.3 On 40cc/hr of IVF Had 1g of protein and an elevated FENa when previously checked No breathing issues Objective Vital Signs and I&Os Vital Signs Date Time Temp Pulse Resp B/P Pulse O2 O2 Flow FiO2 Ox Delivery Rate 11/18 0838 97.9 88 16 105/53 92 Nasal 5.0L Cannula 11/18 0800 93 Nasal 5.0L Cannula 11/18 0511 97.5 78 16 101/45 92 11/18 0249 88 108/48 93 11/18 0054 96.2 11/18 0034 84 16 94/44 93 11/18 0000 91 Nasal 5.0L Cannula 11/17 1848 97.5 88 20 11/68 93 Nasal 5.0L Cannula 11/17 1758 97.5 88 16 110/68 93 Nasal 5.0L Cannula 11/17 1615 96.0 84 20 108/60 94 Nasal 5.0L Cannula 11/17 1613 96.0 85 16 99/50 93 Nasal 5.0L Cannula 11/17 1600 Nasal 5.0L Cannula 11/17 1331 97.6 93 19 118/58 93 Nasal 5.0L Cannula Intake & Output 11/18 1600 11/18 0400 11/17 1600 11/17 0400 11/16 1600 11/16 0400 Intake Total 380 2777 210 1353 600 Output Total 450 250 700 625 Balance 380 1070 170 500 -25 Intake, IV 380 6121 786 1436 600 Intake, Oral 120 120 Number 1 0 1 1 Bowel Movements Output, Urine 450 250 700 625 Patient 136 lb Weight Physical Exam: Gen - lethargic HEENT - supple CV - RRR CHest - clear anteriorly Abd - soft, nondistended Ext - quadriplegic, no edema Neuro - lethargic Current Medications: Current Medications Sig/Kobi Start time Last Medication Dose Route Stop Time Status Admin Acetaminophen 650 MG Q6P PRN 11/14 161 AC PO Acetaminophen 1,000 MG Q6P PRN 11/14 1615 AC IV Allopurinol 50 MG DAILY 11/15 1000 AC 11/18 PO 0902 Baclofen 2.5 MG BID 11/14 2200 AC 11/18 PO 0902 Cholecalciferol 1,000 IU DAILY 11/15 1000 AC 11/18 PO 0902 Dextrose/Sodium 1,000 ML Q13H 11/17 1015 AC 11/18 Chloride IV 0711 Ferrous Sulfate 325 MG BID 11/14 2200 AC 11/18 PO 0902 Gabapentin 100 MG DAILY 11/14 1600 AC 11/18 PO 0902 Lactobacillus 1 CAP DAILY 11/15 1000 AC 11/18 Acidophilus PO 0902 Levothyroxine Sodium 0.05 MG DAILY AC 11/15 0700 AC 11/17 PO 0557 Morphine Sulfate 1 MG Q6-PRN PRN 11/14 161 AC IV Multivitamins 1 TAB DAILY 11/15 1000 AC 11/18 Therapeutic PO 0902 Piperacillin Sod/ 2.25 GM Q8H 11/17 0000 AC 11/18 Tazobactam Sod IV 0902 Sodium Chloride 50 ML Potassium Chloride 40 MEQ BID 11/18 2199 AC PO Results Pertinent Lab Results: Laboratory Tests 11/18 11/18 0830 0620 Chemistry Sodium (137 - 145 mmol/L) 141 Potassium (3.5 - 5.1 mmol/L) 3.5 Chloride (98 - 107 mmol/L) 107 Carbon Dioxide (22 - 30 mmol/L) 21 L Anion Gap (5 - 16) 13 BUN (7 - 17 mg/dL) 63 H Creatinine (0.5 - 1.0 mg/dL) 3.3 H Estimated GFR (>60 ml/min) 13 L BUN/Creatinine Ratio (7 - 25 %) 19.1 Hematology CBC w Diff MAN DIFF ORDERED WBC (4.8 - 10.8 /CUMM) 47.3 *H RBC (4.20 - 5.40 /CUMM) 3.03 L Hgb (12.0 - 16.0 G/DL) 8.3 L Hct (37 - 47 %) 25.3 L MCV (81.0 - 99.0 FL) 83.4 MCH (27.0 - 31.0 PG) 27.2 RDW (11.5 - 14.5 %) 20.7 H Plt Count (130 - 400 /CUMM) 321 MPV (7.4 - 10.4 FL) 9.1 Gran % (42.2 - 75.2 %) 94.8 H Lymphocytes % (20.5 - 51.1 %) 2.1 L Monocytes % (1.7 - 9.3 %) 3.1 Eosinophils % (0 - 5 %) 0 Basophils % (0.0 - 2.0 %) 0 L Absolute Granulocytes (1.4 - 6.5 /CUMM) 44.9 H Segmented Neutrophils (42.2 - 75.2 %) 95 H Band Neutrophils (0.0 - 5.0 %) 3 Absolute Lymphocytes (1.2 - 3.4 /CUMM) 1.0 L Lymphocytes (20.5 - 51.1 %) 2 L Absolute Monocytes (0.10 - 0.60 /CUMM) 1.4 H Absolute Eosinophils (0.0 - 0.7 /CUMM) 0 Absolute Basophils (0.0 - 0.2 /CUMM) 0 Nucleated RBCs (0.0 - 0.0 /100WBC) 3 H Platelet Estimate (ADEQUATE) VERIFIED BY SMEAR Polychromasia 1+ Poikilocytosis 3+ Anisocytosis 2+ Target Cells 2+ Patsy Cells 1+ Schistocytes PUBS MCHC (33.0 - 37.0 G/DL) 32.6 L 11/17 11/17 0836 0059 Chemistry Sodium (137 - 145 mmol/L) 136 L 136 L Potassium (3.5 - 5.1 mmol/L) 3.7 3.9 Chloride (98 - 107 mmol/L) 104 104 Carbon Dioxide (22 - 30 mmol/L) 21 L 17 L Anion Gap (5 - 16) 11 15 BUN (7 - 17 mg/dL) 68 H 71 H Creatinine (0.5 - 1.0 mg/dL) 3.5 H 3.5 H Estimated GFR (>60 ml/min) 13 L 13 L BUN/Creatinine Ratio (7 - 25 %) 19.4 20.3 Hematology CBC w Diff MAN DIFF ORDERED WBC (4.8 - 10.8 /CUMM) 48.7 *H RBC (4.20 - 5.40 /CUMM) 3.08 L Hgb (12.0 - 16.0 G/DL) 8.4 L Hct (37 - 47 %) 25.7 L MCV (81.0 - 99.0 FL) 83.5 MCH (27.0 - 31.0 PG) 27.2 RDW (11.5 - 14.5 %) 19.6 H Plt Count (130 - 400 /CUMM) 273 MPV (7.4 - 10.4 FL) 7.9 Gran % (42.2 - 75.2 %) 92.1 H Lymphocytes % (20.5 - 51.1 %) 4.5 L Monocytes % (1.7 - 9.3 %) 3.4 Eosinophils % (0 - 5 %) 0 Basophils % (0.0 - 2.0 %) 0 L Absolute Granulocytes (1.4 - 6.5 /CUMM) 44.9 H Segmented Neutrophils (42.2 - 75.2 %) 92 H Band Neutrophils (0.0 - 5.0 %) 1 Absolute Lymphocytes (1.2 - 3.4 /CUMM) 2.2 Lymphocytes (20.5 - 51.1 %) 1 L Monocytes (1.7 - 9.3 %) 6 Absolute Monocytes (0.10 - 0.60 /CUMM) 1.7 H Absolute Eosinophils (0.0 - 0.7 /CUMM) 0 Absolute Basophils (0.0 - 0.2 /CUMM) 0 Nucleated RBCs (0.0 - 0.0 /100WBC) 4 H Platelet Estimate (ADEQUATE) VERIFIED BY SMEAR Polychromasia 1+ Poikilocytosis 2+ Anisocytosis 2+ Target Cells 2+ PUBS MCHC (33.0 - 37.0 G/DL) 32.6 L 11/16 11/16 1625 0732 Chemistry Sodium (137 - 145 mmol/L) 137 138 Potassium (3.5 - 5.1 mmol/L) 4.3 4.6 Chloride (98 - 107 mmol/L) 107 110 H Carbon Dioxide (22 - 30 mmol/L) 14 L 12 L Anion Gap (5 - 16) 17 H 15 BUN (7 - 17 mg/dL) 72 H 74 H Creatinine (0.5 - 1.0 mg/dL) 3.6 H 3.7 H Estimated GFR (>60 ml/min) 12 L 12 L BUN/Creatinine Ratio (7 - 25 %) 20.0 20.0 Coagulation PT (9.4 - 12.5 SEC) 17.0 H INR (0.90 - 1.19) 1.63 H Hematology CBC w Diff NO MAN DIFF REQ MAN DIFF ORDERED WBC (4.8 - 10.8 /CUMM) 50.9 *H 41.7 *H RBC (4.20 - 5.40 /CUMM) 3.33 L 3.14 L Hgb (12.0 - 16.0 G/DL) 8.9 L 8.6 L Hct (37 - 47 %) 27.6 L 26.5 L MCV (81.0 - 99.0 FL) 82.8 84.3 MCH (27.0 - 31.0 PG) 26.9 L 27.5 RDW (11.5 - 14.5 %) 20.8 H 19.9 H Plt Count (130 - 400 /CUMM) 302 267 MPV (7.4 - 10.4 FL) 8.4 9.1 Gran % (42.2 - 75.2 %) 94.6 H 93.9 H Lymphocytes % (20.5 - 51.1 %) 1.1 L 2.1 L Monocytes % (1.7 - 9.3 %) 4.2 4.0 Eosinophils % (0 - 5 %) 0 0 Basophils % (0.0 - 2.0 %) 0.1 0 L Absolute Granulocytes (1.4 - 6.5 /CUMM) 48.2 H 39.1 H Segmented Neutrophils (42.2 - 75.2 %) 94 H Band Neutrophils (0.0 - 5.0 %) 1 Absolute Lymphocytes (1.2 - 3.4 /CUMM) 0.6 L 0.9 L Lymphocytes (20.5 - 51.1 %) 1 L Monocytes (1.7 - 9.3 %) 4 Absolute Monocytes (0.10 - 0.60 /CUMM) 2.1 H 1.7 H Absolute Eosinophils (0.0 - 0.7 /CUMM) 0 0 Absolute Basophils (0.0 - 0.2 /CUMM) 0 0 Nucleated RBCs (0.0 - 0.0 /100WBC) 4 H Platelet Estimate (ADEQUATE) VERIFIED BY SMEAR Polychromasia 1+ Poikilocytosis 2+ Anisocytosis 2+ Target Cells 2+ Patsy Cells 1+ PUBS MCHC (33.0 - 37.0 G/DL) 32.5 L 32.6 L 11/15 11/15 1900 1900 Urines Urine Color (YEL,AMB,STR) YEL Urine Clarity (CLEAR) CLEAR Urine pH (5.0 - 8.0) 6.0 Ur Specific [place] (1.001 - 1.035) 1.010 Urine Protein (NEG,<30 MG/DL) 30 H Urine Ketones (NEG) NEG Urine Nitrite (NEG) NEG Urine Bilirubin (NEG) NEG Urine Urobilinogen (0.1 - 1.0 EU/dl) 0.2 Ur Leukocyte Esterase (NEG) MOD H Ur Microscopic SEDIMENT EXAMINED Urine RBC (0 - 5 /HPF) 1-3 Urine WBC (0 - 2 /HPF) 10-15 H Ur Epithelial Cells (NONE,FEW) FEW Urine Hemoglobin (NEG) MOD H Ur Random Creatinine (mg/dL) 26.5 Ur Random Sodium (30 - 90 mmol/L) 29 L Ur Random Potassium (mmol/L) 15.5 Fraction Sodium Excret (<1% %) 3.1 H Urine Glucose (N MG/DL) NEG Imaging/Other Studies: EXAM TYPE: RAD - XRY-PORTABLE CHEST XRAY EXAMINATION: XR PORTABLE CHEST CLINICAL INFORMATION: Pulmonary congestion. COMPARISON: Chest 11/14/2016. CT chest 10/25/2015. TECHNIQUE: Portable AP view of the chest was obtained. FINDINGS: Both lungs are hypoexpanded. There is elevated right hemidiaphragm with soft tissue thickening or effusion along the right lateral pleural space. Right basilar atelectasis/ infiltrate is not excluded. There is opacification of retrocardiac left lung base as well from underlying infiltrate/atelectasis or effusion. Heart size is enlarged with normal pulmonary vascularity. No gross bony abnormality seen. IMPRESSION: Moderate haziness right lung base has increased since 11/13/2016 exam. This is suggestive of pleural effusion with underlying infiltrate or atelectasis. Left lung base retrocardiac opacity may represent underlying effusion/infiltrate or atelectasis. The findings in the right lung has increased since the previous study. Recommend CT chest without contrast for correlation. Cardiomegaly without congestion. Previous CT chest 10/25/2015 revealed bilateral posterior pleural thickening and minimal atelectasis.
--- NOTE | 2016-11-18 14:12 | NUR ---
NURSING NOTE: PT OFF FLOOR TO IR VIA STRETCHER. FAMILY FOLLOWED FOR CONSENT
--- NOTE | 2016-11-18 14:56 | PN- Infect Dx ---
Subjective Subjective: Afebrile without complaints. Objective Last 24 Hrs of Vital Signs/I&O Vital Signs Date Time Temp Pulse Resp B/P Pulse O2 O2 Flow FiO2 Ox Delivery Rate 11/18 1203 97.6 86 18 102/58 92 Nasal 5.0L Cannula 11/18 0838 97.9 88 16 105/53 92 Nasal 5.0L Cannula 11/18 0800 93 Nasal 5.0L Cannula 11/18 0511 97.5 78 16 101/45 92 11/18 0249 88 108/48 93 11/18 0054 96.2 11/18 0034 84 16 94/44 93 11/18 0000 91 Nasal 5.0L Cannula 11/17 1848 97.5 88 20 11/68 93 Nasal 5.0L Cannula 11/17 1758 97.5 88 16 110/68 93 Nasal 5.0L Cannula 11/17 1615 96.0 84 20 108/60 94 Nasal 5.0L Cannula 11/17 1613 96.0 85 16 99/50 93 Nasal 5.0L Cannula 11/17 1600 Nasal 5.0L Cannula Intake & Output 11/18 1600 11/18 0800 11/18 0000 Intake Total 320 380 Output Total Balance 320 380 Intake, IV 320 380 Intake, Oral 0 Number 1 Bowel Movements Physical Exam Other Physical Findings: She is lethargic but does respond to voice and answers questions appropriately Lungs decreased breath sounds bilaterally Heart regular rhythm with no murmur Abdomen distended, nontender with positive bowel sounds Extremities no cyanosis, clubbing or edema Results Last 24 Hours of Lab Results: Laboratory Tests 11/18 11/18 0830 0620 Chemistry Sodium (137 - 145 mmol/L) 141 Potassium (3.5 - 5.1 mmol/L) 3.5 Chloride (98 - 107 mmol/L) 107 Carbon Dioxide (22 - 30 mmol/L) 21 L Anion Gap (5 - 16) 13 BUN (7 - 17 mg/dL) 63 H Creatinine (0.5 - 1.0 mg/dL) 3.3 H Estimated GFR (>60 ml/min) 13 L BUN/Creatinine Ratio (7 - 25 %) 19.1 Hematology CBC w Diff MAN DIFF ORDERED WBC (4.8 - 10.8 /CUMM) 47.3 *H RBC (4.20 - 5.40 /CUMM) 3.03 L Hgb (12.0 - 16.0 G/DL) 8.3 L Hct (37 - 47 %) 25.3 L MCV (81.0 - 99.0 FL) 83.4 MCH (27.0 - 31.0 PG) 27.2 RDW (11.5 - 14.5 %) 20.7 H Plt Count (130 - 400 /CUMM) 321 MPV (7.4 - 10.4 FL) 9.1 Gran % (42.2 - 75.2 %) 94.8 H Lymphocytes % (20.5 - 51.1 %) 2.1 L Monocytes % (1.7 - 9.3 %) 3.1 Eosinophils % (0 - 5 %) 0 Basophils % (0.0 - 2.0 %) 0 L Absolute Granulocytes (1.4 - 6.5 /CUMM) 44.9 H Segmented Neutrophils (42.2 - 75.2 %) 95 H Band Neutrophils (0.0 - 5.0 %) 3 Absolute Lymphocytes (1.2 - 3.4 /CUMM) 1.0 L Lymphocytes (20.5 - 51.1 %) 2 L Absolute Monocytes (0.10 - 0.60 /CUMM) 1.4 H Absolute Eosinophils (0.0 - 0.7 /CUMM) 0 Absolute Basophils (0.0 - 0.2 /CUMM) 0 Nucleated RBCs (0.0 - 0.0 /100WBC) 3 H Platelet Estimate (ADEQUATE) VERIFIED BY SMEAR Polychromasia 1+ Poikilocytosis 3+ Anisocytosis 2+ Target Cells 2+ [place] Cells 1+ Schistocytes PUBS MCHC (33.0 - 37.0 G/DL) 32.6 L Last 24 Hours of Jun Results: Blood cultures November 14 negative Blood cultures November 17 negative Stool C. difficile November 17 negative Recent Imaging Studies: Chest x-ray November 17 moderate haziness right lung base, suggesting underlying density and pleural effusion Assessment/Plan Impression: Persistent leukocytosis presumably secondary to acute cholecystitis, with plans for placement of cholecystostomy tube later today. She remains afebrile on empiric treatment with Zosyn pending bile cultures. Her chest x-ray has worsened, with increasing oxygen requirements, and underlying pneumonia or pleural effusion must be considered. Suggestion: 1. Await cholecystostomy tube placement later today 2. Send cultures of the bile after placement of the cholecystostomy tube 3. Consider CT of the chest 4. Continue Zosyn pending above
--- NOTE | 2016-11-18 15:50 | Transfer of Care Summary ---
Hospital Course Course Hospital Course: 81 yo female with pmh of HTN, hypothyroidism, HLD, CKD, quadriplegia s/p spinal cord stroke, DVT/PE on eliquis, Renal artery stenosis s/p renal artery stenting, who is a resident at [facility] was brought in with fever and possible UTI. She was noted to have fever at ECF prior to admission and bloodwork showed a significantly elevated WBC. She had been begun on Macrodantin 100 mg bid for presumed UTI. In the ED, her BP was low and there was a significant elevation in her Creatinine 4.2 (was 2.8 on 11/13 and prior to that 1.1). She denied any chills, dyspnea, cough, abdominal pain, diarrhea, chest pain or other symptoms. 1. Sepsis secondary to acute cholecystitis: Initially source of infection was suspected as UTI. However, urine culture sent from [facility] was canceled as it has contamination. She has urinary incontinence/neurogenic bladder at baseline. She had a history of renal artery stent from [facility] few years ago (not sure about which kidney). As her leukocytosis was significantly high, CT abdomen/pelvis was pursued to evaluation other sources of infection as well as urinary obstruction/pyelonephritis. CT abdomen/pelvis showed hydropic GB and distended appendix. General surgery was consulted, and HIDA scan was recommeded to rule out acute cholecystitis. HIDA scan showed findings of acute cholecystitis. As she was on po eliquis/plavix, these medications were held anticipating surgical / IR procedure from 11/15. ID consult was appreciated and she was on IV zosyn. She had percutaneous cholecystostomy tube on 11/18 by IR. Please follow up biliary drainage culture. Urine cultures were positive for morganella morganii, providencia 2. Acute kidney injury/metabolic acidosis * Likely from ATN secondary to sepsis with FeNa 3%. She was given D5W 150 mEq of bicarbonate at 100 mL an hour during weekend. Bicarb was increased to 21. * IV fluid was decreased to d5 1/2 NS @ 75cc/hr with pulmonary congetion from CXR while pt is NPO. 3. Cholelithiasis with hydropic gallbladder: * CT abdomen/pelvis showed cholelithiasis with mild inflammation and HIDA scan comfirmed acute cholecystitis. * Eliquis and Plavix on hold from 11/15. * s/p cholecystostomy tube placement by IR today with biliary drainage culture on 11/18 4. 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 c/w baclofen for spasticity & gabapentin 5. Hx of DVT/PE s/p IVC filter: * Resume Eliquis and Plavix from 11/20 per surgery 6. Hypothyroidism: * c/w levothyroxine 50mcg daily 7. HTN: hold nifedipine for borderline BP. 8. Acute on chronic anemia: likely from dilution / volume expansion. No active signs of bleeding, she denies any history of hematuria/melena/bright red per rectum. Last colonoscopy about 10 years ago without abnormal results (from ID). s/p 1 PRBC 11/15. 9. Dilated appendix: about 10mm, low clinical suspicion for acute appendicitis per surgery. DVT ppx: resume po eliquis, full code. Assessment/Plan: As above
--- NOTE | 2016-11-18 16:03 | ULTRASOUND REPORT ---
CLINICAL HISTORY: This patient is a 81-year-old woman with acute cholecystitis, who presents to interventional radiology for placement of a cholecystostomy tube. She is not a surgical candidate. PROCEDURES: 1. Limited sonogram of the right upper abdominal quadrant. 2. Placement of an 8.5 Fr locking all-purpose drainage catheter into the gallbladder. 3. Tube cholecystogram. PHYSICIANS: Dr. Juares (attending). The attending radiologist was present during the procedure and related imaging, and reviewed the report. MONITORING: Continuous blood pressure, pulse oximetry as well as heartrate monitoring was performed by an independent registered nurse. No sedation was used. MEDICATIONS: 10 mL of 1% lidocaine SQ. COMPLICATIONS: None. ESTIMATED BLOOD LOSS: <5 mL SPECIMENS: Dark black bile sent for culture and cell count. CONTRAST: <10 mL Optiray 320. FLUOROSCOPY TIME: 0.6 minutes. PROCEDURE NOTE: Informed consent was obtained from the patient's daughter prior to the procedure. During this process, the procedure and potential alternatives were explained along with the intended outcome and benefits. The risks of the procedure, including the possibility of an unsuccessful procedure, as well as the risk of not doing the procedure, were discussed. The patient's daughter was given the opportunity to ask questions regarding the procedure and appeared competent to make decisions. A signed consent form documenting this discussion was placed in the medical record. A time-out procedure was performed. The patient was placed supine on the fluoroscopy table. Prior to prepping the patient, a limited sonogram of the right upper quadrant was performed to localize the gallbladder and chose an appropriate access. The right upper abdomen was prepped and draped in usual sterile fashion. After choosing an intercostal approach, the skin and subcutaneous tissues were anesthetized with lidocaine. Using an 21 gauge spinal needle, the gallbladder was accessed through the liver. There was no other suitable window due to bowel. Dark black bile was aspirated. The 018 Greb wire was advanced through the needle. The needle was removed and the geologic technician set sheath placed over the wire. A 0.035 in Amplatz super stiff wire was advanced through the needle and coiled in the gallbladder. The sheath was removed and the tract was dilated over the wire. An 8.5 Fr locking all-purpose drainage catheter was advanced over the wire. The wire was removed and contrast was injected through the drain. The drain was sutured to skin with 0 nylon suture and secured with a StatLock device. A sterile dressing was applied. FINDINGS: 1. Distended gallbladder on ultrasound, with gallstones. 2. Aspiration of dark black bile upon access of gallbladder. 3. Successful placement of an 8.5 Hebrew Brown-Pino cholecystostomy tube. IMPRESSION: Successful placement of an 8.5 Hebrew Brown-Pino cholecystostomy tube. PLAN: 1. The patient was stable after the procedure and was transferred to the interventional recovery area with the plan to transfer her back to her room when stable by protocol. 2. The tube should be open to external gravity drainage via drainage bag. 3. The tube should be flushed twice daily with 10 mL normal saline. 4. The drain needs to remain in place for at least 6 weeks to give time for the tract to mature. If the tube is to remain indefinitely (the plan will be determined by general surgery), she should return for a tube check and change in 3 months.
--- NOTE | 2016-11-18 16:27 | CT SCAN REPORT ---
EXAMINATION: CT CHEST WITHOUT CONTRAST CLINICAL INFORMATION: 81-year-old patient with sepsis. Status post cholecystostomy tube today. Change in the chest x-ray. CT recommended. COMPARISON: Chest x-ray done yesterday. CTA of the chest on 10/25/2015. TECHNIQUE: Multidetector volumetric CT imaging of the chest was done. Axial MIP volume rendering provided. Sagittal and coronal reformatted images were obtained. DLP: 304 mGy-cm FINDINGS: POINT OF SALE ASSOCIATE: Bibasilar airspace disease and right pleural effusion. Contrast in the gallbladder introduced via the cholecystostomy tube. Cholelithiasis. LUNGS: Both lower lobes show evidence of compression atelectasis worse on the right than left. Mild groundglass opacity in the aerated portions of both lungs could represent early edema. MEDIASTINUM: Calcifications of the coronary arteries. The heart is enlarged. PLEURA: There are bilateral pleural effusions larger on the right than left. 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 These may indicate prior exposure to asbestos. AXILLA: No lymphadenopathy. UPPER ABDOMEN: Small amount of perihepatic ascites. Contrasted in the gallbladder from a previous injection view of the cholecystostomy tube. Cholelithiasis. Mild anasarca. OSSEOUS STRUCTURES: No acute. IMPRESSION: 1. Bilateral pleural effusions larger on the right than left. 2. Compression atelectasis of portions of both lower lobes. Consider early pulmonary edema in the aerated portions of both lungs. 3. Cholelithiasis, status post cholecystostomy tube placement. 4. Calcified pleural plaques. 5. Small volume ascites. Mild anasarca. The findings above could be compatible with CHF.
--- NOTE | 2016-11-18 16:47 | NUR ---
PT ARRIVED TO FLOOR AT 1600 FROM IR S/P DRAIN IN R UPPER QUADRANT. TUBE DRAINING DARK BROWN/ BLACK LIQUID. PT LETHARGIC BUT AROUSABLE. DENIES PAIN. DAUGHTERS AT BEDSIDE. PT STILL NPO.
--- NOTE | 2016-11-18 17:15 | NUR ---
RECTAL TEMP CHECKED: 93.3. RICE SOCK PLACED UNDER ARMPITS, NECK, AND DAVID AREA. PT WRAPPED UP WITH BLANKETS. MD NOTIFIED. WILL RECHECK IN ONE HOUR.
--- NOTE | 2016-11-18 18:51 | NUR ---
1720 TEMPERATURE RECHECKED WHICH WAS 93.7. BP 96/52. MD CECILIA BANEGAS NOTIFIED. ATTEMPTS TO REWARM BODY TEMP DID NOT WORK. POSSIBLE ICU TRANSFER RECOMMENDED. AWAITING ORDERS FROM MD BROOKS.
--- NOTE | 2016-11-18 19:50 | NUR ---
1919 TEMPERATURE RECHECKED WHICH WAS 94.7. PER MD CECILIA BANEGAS, KEEP PUTTING WARMED SOCKS AROUND NECK ARMPITS. WILL RECHECK IN 30-45 MINUTES.
--- NOTE | 2016-11-19 00:43 | NUR ---
SINCE TEMP SLOWLY RISING, CONTINUED TO WARM THE PATIENT AND CHECK TEMPERATURE. RECTAL TEMP REACHED 95.5. PATIENT CONTINUED TO BE WARMED. WILL RECHECK.
[2016-11-19 00:50] VITALS: BP 102/58
--- NOTE | 2016-11-19 07:44 | PN- Housestaff ---
TAMERA METZ,MARIUM 11/19/16 0743: Subjective Follow-up For: Sepsis secondary to acute cholecystitis LILLIE Complaints: pt unable to provide hx Subjective: Pt is drowsy, not able to communicate. Per daughter, she didn't get sleep last night after the procedure due to pain. PO / IV tyrenol were given. s/p percutaneous cholecystostomy tube 1DA, output 100ml. Review of Systems Constitutional: Reports: malaise, weakness. Denies: chills, fever. EENTM: Reports: see HPI. Cardiovascular: Reports: see HPI. Respiratory: Reports: see HPI. Gastrointestinal: Reports: see HPI. Genitourinary: Reports: see HPI. Musculoskeletal: Reports: see HPI. Skin: Reports: see HPI. Neurological/Psychological: Reports: see HPI. Hematologic/Endocrine: Reports: see HPI. Immunologic/Allergic: Reports: see HPI. Objective Last 24 Hrs of Vital Signs/I&O Vital Signs Date Time Temp Pulse Resp B/P Pulse O2 O2 Flow FiO2 Ox Delivery Rate 11/19 0822 97.3 98 18 102/60 92 Nasal 5.0L Cannula 11/19 0050 97.1 89 18 102/58 94 11/19 0000 Nasal 5.0L Cannula 11/18 2130 95.5 11/18 1954 94.7 11/18 1646 79 16 96/50 97 Nasal 6.0L Cannula 11/18 1600 Nasal 6.0L Cannula 11/18 1203 97.6 86 18 102/58 92 Nasal 5.0L Cannula Intake & Output 11/19 1600 11/19 0800 11/19 0000 Intake Total 440 320 Output Total 100 Balance 340 320 Intake, IV 320 320 Intake, Oral 120 Number 2 Bowel Movements Output, 100 Drainage Physical Exam General Appearance: drowsy, not able to communicate Skin: No Significant Lesion HEENT: Atraumatic, PERRLA, EOMI, dry mucosa Neck: Supple, No JVD, No LAD Cardiovascular: Normal S1, Normal S2, No Murmurs, tachycardic Lungs: decreased breathing sound, bilaterally Abdomen: Normal Bowel Sounds, Soft, No Tenderness Neurological: chronic paraplegia s/p spinal cord stroke Extremities: No Edema, Normal Pulses, No Tenderness/Swelling Vascular: Normal Pulses, Pulses Symmetrical Current Medications: Current Medications Sig/Kobi Start time Last Medication Dose Route Stop Time Status Admin Acetaminophen 650 MG Q6P PRN 11/14 1615 AC 11/18 PO 1622 Acetaminophen 1,000 MG Q6P PRN 11/14 1615 AC 11/18 IV 2256 Allopurinol 50 MG DAILY 11/15 1000 AC 11/18 PO 0902 Baclofen 2.5 MG BID 11/14 2200 AC 11/18 PO 0902 Cholecalciferol 1,000 IU DAILY 11/15 1000 AC 11/18 PO 0902 Dextrose/Sodium 1,000 ML Q13H 11/17 1015 AC 11/19 Ch[place]ide IV 0009 Ferrous Sulfate 325 MG BID 11/14 2200 AC 11/18 PO 0902 Gabapentin 100 MG DAILY 11/14 1600 AC 11/18 PO 0902 Lactobacillus 1 CAP DAILY 11/15 1000 AC 11/18 Acidophilus PO 0902 Levothyroxine Sodium 0.05 MG DAILY AC 11/15 0700 AC 11/19 PO 0622 Lidocaine 0 .STK-MED ONE 11/18 1509 DC .ROUTE Morphine Sulfate 1 MG Q6-PRN PRN 11/14 1615 AC IV Multivitamins 1 TAB DAILY 11/15 1000 AC 11/18 Therapeutic PO 0902 Patient Medication 1 ED .STK-MED ONE 11/18 1329 DC Teaching ED 11/18 1330 Piperacillin Sod/ 2.25 GM Q8H 11/17 0000 AC 11/19 Tazobactam Sod IV 0840 Sodium Chloride 50 ML Potassium Chloride 40 MEQ BID 11/18 2199 AC 11/18 PO 2247 Last 24 Hrs of Lab/Jun Results Last 24 Hrs of Labs/Mics: Laboratory Tests 11/19/16 0640: Anion Gap 14, Estimated GFR 12 L, BUN/Creatinine Ratio 16.9, Total Bilirubin Pending, Direct Bilirubin Pending, AST Pending, ALT Pending, Alkaline Phosphatase Pending, Total Protein Pending, Albumin Pending, CBC w Diff MAN DIFF ORDERED, WBC Pending, RBC Pending, Hgb Pending, Hct Pending, MCV Pending, MCH Pending, RDW Pending, Plt Count Pending, MPV Pending, Segmented Neutrophils Pending, PUBS MCHC Pending Microbiology 11/18 UNK BODY FLUID: Body Fluid Culture - RES 11/18 UNK BODY FLUID: Gram Stain - RES Lines/Diet/Fluids Catheters/Tubes: cholecystostomy tube Drains Still Needed? Yes Lines: peripheral lines Assessment/Plan Assessment: 1. Sepsis secondary to acute cholecystitis: * s/p cholecystostomy tube 1 DA by IR. drainage 100ml. dark red drainage found in the bag. * Culture results from biliary drainage pending. * ID consult is appreciated. IV zosyn #4 to cover anaerobes and Enterococcus. WBC pending this morning. * Chest CT revealed bilateral pleural effusion Rt > Lt, small bowel ascites, mild anasarca * Urine cultures positive for morganella morganii, providencia * Urine culture sent from [facility] was canceled as it has contamination. She was on nitrofurantoin from [facility]. 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 She had a history of renal artery stent from [facility] few years ago (not sure about which kidney) 2. Acute kidney injury/metabolic acidosis * Cr worsening from 3.3 to 3.6 today. IV fluid d5 NS @ 40cc/hr currently * Pt is still NPO, not able to eat safely due to mental status, will stop IVF once pt is more alert * Likely from ATN secondary to sepsis with FeNa 3%. She was given D5W 150 mEq of bicarbonate at 100 mL an hour during weekend. Bicarb was increased to 21. 3. Cholelithiasis with hydropic gallbladder: * Eliquis and Plavix on hold from 11/15. * s/p cholecystostomy tube placement by IR 1DA with biliary drainage culture, follow up culture. 4. 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 c/w baclofen for spasticity & gabapentin 5. Hx of DVT/PE s/p IVC filter: * Resuming of eliquis and plavix tmr 6. Hypothyroidism: * c/w levothyroxine 50mcg daily 7. HTN: hold nifedipine for borderline BP. 8. Acute on chronic anemia: likely from dilution / volume expansion. No active signs of bleeding, she denies any history of hematuria/melena/bright red per rectum. Last colonoscopy about 10 years ago without abnormal results (from [place]). Will give 1 PRBC, guiac stool, monitor pt. 9. Dilated appendix: about 10mm, low clinical suspicion for acute appendicitis per surgery. DVT ppx: po eliquis on hold, ALPS for now, full code. Problem List: 1. Sepsis 2. Acute cholecystitis 3. Acute kidney injury Pain Ratin Pain Location: Acute cholecystitis s/p cholecystostomy tube Pain Goal: Pain 4 or less Pain Plan: po/iv tyrenol IV morphine Tomorrow's Labs & Rationales: CBC: sepsis BEP: LILLIE DVT/Prophylaxis: mechanical Consulting Request: Consulting Specialty: Neurology Consulting Physician: Dr. Rodriguez Reason for Consult: LILLIE, metabolic acidosis Discharge Plan Stable for Discharge? No CANDE ELIZONDO MD 11/19/16 1737: Attending MD Review Statement Attending Statement Attending MD Statement: examined this patient, discuss w/resident/PA/PRODUCT/DEVICE TECHNOLOGIST, agreed w/resident/PA/PRODUCT/DEVICE TECHNOLOGIST, discussed with family, reviewed EMR data (avail), discussed with nursing, reviewed images, amended to note Attending Assessment/Plan: The patient was seen and discussed with house staff. Agree with plan of care as outlined. Will check CT head.
[2016-11-19 07:54] LABS: MEAN CORPUSCULAR HGB CONC 32.9 G/DL (33.0-37.0); MEAN PLATELET VOLUME 8.1 FL (7.4-10.4)
[2016-11-19 08:17] LABS: MEAN CORPUSCULAR HGB 27.4 PG (27.0-31.0); MEAN CORPUSCULAR VOLUME 83.2 FL (81.0-99.0); PLATELET COUNT 337 /CUMM (130-400); RBC DISTRIBUTION WIDTH 20.8 % (11.5-14.5); RED BLOOD CELL CT 2.88 /CUMM (4.20-5.40)
[2016-11-19 08:22] VITALS: BP 102/60
[2016-11-19 09:06] LABS: WHITE BLOOD CELL COUNT 31.7 /CUMM (4.8-10.8)
--- NOTE | 2016-11-19 09:20 | PN- General Surgery ---
Subjective Subjective: SLEEPING. UNAROUSABLE. PER DAUGHTER REPORT, PATIENT WAS UP ALL NIGHT AGITATED. Review of Systems: UNOBTAINABLE Objective Vital Signs and I&Os Vital Signs Date Time Temp Pulse Resp B/P Pulse O2 O2 Flow FiO2 Ox Delivery Rate 11/19 821 97.3 98 18 102/60 92 Nasal 5.0L Cannula 11/19 0050 97.1 89 18 102/58 94 11/19 0000 Nasal 5.0L Cannula 11/18 2130 95.5 11/18 1954 94.7 11/18 1646 79 16 96/50 97 Nasal 6.0L Cannula 11/18 1600 Nasal 6.0L Cannula 11/18 1203 97.6 86 18 102/58 92 Nasal 5.0L Cannula Intake & Output 11/19 1600 11/19 0800 11/19 0000 11/18 1600 11/18 0800 11/18 0000 Intake Total 440 320 320 380 Output Total 100 Balance 340 320 320 380 Intake, IV 320 320 320 380 Intake, Oral 120 0 Number 2 1 Bowel Movements Output, 100 Drainage Physical Exam: GEN; NAD. SLEEPING. UNAROUSABLE. ABD; SOFT. NT, ND. DRAIN WITH BILE. Current Medications: Current Medications Sig/Kobi Start time Last Medication Dose Route Stop Time Status Admin Acetaminophen 650 MG Q6P PRN 11/14 1615 AC 11/18 PO 1622 Acetaminophen 1,000 MG Q6P PRN 11/14 1615 AC 11/18 IV 2256 Allopurinol 50 MG DAILY 11/15 1000 AC 11/18 PO 0902 Baclofen 2.5 MG BID 11/14 2200 AC 11/18 PO 0902 Cholecalciferol 1,000 IU DAILY 11/15 1000 AC 11/18 PO 0902 Dextrose/Sodium 1,000 ML Q13H 11/17 1015 AC 11/19 [place] 0009 Ferrous Sulfate 325 MG BID 11/14 2200 AC 11/18 PO 0902 Gabapentin 100 MG DAILY 11/14 1600 AC 11/18 PO 0902 Lactobacillus 1 CAP DAILY 11/15 1000 AC 11/18 Acidophilus PO 0902 Levothyroxine Sodium 0.05 MG DAILY AC 11/15 0700 AC 11/19 PO 0622 Lidocaine 0 .STK-MED ONE 11/18 1509 DC .ROUTE Morphine Sulfate 1 MG Q6-PRN PRN 11/14 161 AC IV Multivitamins 1 TAB DAILY 11/15 1000 AC 11/18 Therapeutic PO 0902 Patient Medication 1 ED .STK-MED ONE 11/18 1329 DC Teaching ED 11/18 1330 Piperacillin Sod/ 2.25 GM Q8H 11/17 0000 AC 11/19 Tazobactam Sod IV 0840 Sodium Chloride 50 ML Potassium Chloride 40 MEQ BID 11/18 2200 DC 11/18 PO 2247 Results Last 48 Hours of Labs: Laboratory Tests 11/19 11/18 0640 0830 Chemistry Sodium (137 - 145 mmol/L) 143 141 Potassium (3.5 - 5.1 mmol/L) 4.3 3.5 Chloride (98 - 107 mmol/L) 112 H 107 Carbon Dioxide (22 - 30 mmol/L) 17 L 21 L Anion Gap (5 - 16) 14 13 BUN (7 - 17 mg/dL) 61 H 63 H Creatinine (0.5 - 1.0 mg/dL) 3.6 H 3.3 H Estimated GFR (>60 ml/min) 12 L 13 L BUN/Creatinine Ratio (7 - 25 %) 16.9 19.1 Total Bilirubin (0.2 - 1.3 mg/dL) 1.0 Direct Bilirubin (< 0.4 mg/dL) 0.9 H AST (14 - 36 U/L) 27 ALT (9 - 52 U/L) 19 Alkaline Phosphatase (<127 U/L) 88 Total Protein (6.3 - 8.2 g/dL) 5.3 L Albumin (3.5 - 5.0 g/dL) 2.4 L Hematology CBC w Diff MAN DIFF ORDERED WBC (4.8 - 10.8 /CUMM) 31.7 *H RBC (4.20 - 5.40 /CUMM) 2.88 L Hgb (12.0 - 16.0 G/DL) 7.9 L Hct (37 - 47 %) 24.0 L MCV (81.0 - 99.0 FL) 83.2 MCH (27.0 - 31.0 PG) 27.4 RDW (11.5 - 14.5 %) 20.8 H Plt Count (130 - 400 /CUMM) 337 MPV (7.4 - 10.4 FL) 8.1 Segmented Neutrophils (42.2 - 75.2 %) 96 H Lymphocytes (20.5 - 51.1 %) 1 L Monocytes (1.7 - 9.3 %) 2 Metamyelocytes (0.0 - 1.0 %) 1 Nucleated RBCs (0.0 - 0.0 /100WBC) 18 H Platelet Estimate (ADEQUATE) VERIFIED BY SMEAR Polychromasia 1+ Hypochromic-Microcytic 1+ Poikilocytosis 3+ Anisocytosis 2+ Target Cells 2+ Varney Cells FEW PUBS MCHC (33.0 - 37.0 G/DL) 32.9 L 11/18 619 Hematology CBC w Diff MAN DIFF ORDERED WBC (4.8 - 10.8 /CUMM) 47.3 *H RBC (4.20 - 5.40 /CUMM) 3.03 L Hgb (12.0 - 16.0 G/DL) 8.3 L Hct (37 - 47 %) 25.3 L MCV (81.0 - 99.0 FL) 83.4 MCH (27.0 - 31.0 PG) 27.2 RDW (11.5 - 14.5 %) 20.7 H Plt Count (130 - 400 /CUMM) 321 MPV (7.4 - 10.4 FL) 9.1 Gran % (42.2 - 75.2 %) 94.8 H Lymphocytes % (20.5 - 51.1 %) 2.1 L Monocytes % (1.7 - 9.3 %) 3.1 Eosinophils % (0 - 5 %) 0 Basophils % (0.0 - 2.0 %) 0 L Absolute Granulocytes (1.4 - 6.5 /CUMM) 44.9 H Segmented Neutrophils (42.2 - 75.2 %) 95 H Band Neutrophils (0.0 - 5.0 %) 3 Absolute Lymphocytes (1.2 - 3.4 /CUMM) 1.0 L Lymphocytes (20.5 - 51.1 %) 2 L Absolute Monocytes (0.10 - 0.60 /CUMM) 1.4 H Absolute Eosinophils (0.0 - 0.7 /CUMM) 0 Absolute Basophils (0.0 - 0.2 /CUMM) 0 Nucleated RBCs (0.0 - 0.0 /100WBC) 3 H Platelet Estimate (ADEQUATE) VERIFIED BY SMEAR Polychromasia 1+ Poikilocytosis 3+ Anisocytosis 2+ Target Cells 2+ Patsy Cells 1+ Schistocytes PUBS MCHC (33.0 - 37.0 G/DL) 32.6 L Recent Imaging Studies: CT CHEST SHOWS SIGNS OF FLUID OVERLOAD Assessment/Plan Assessment/Plan ACUTE CHOLECYSTITIS, S/P PERCUTANEOUS DRAINAGE. WAXING A WANING MENTAL STATUS. UNCLEAR ETIOLOGY. LIKLEY MULTIFACTORIAL, HYPOXEMIA, INFECTION, MEDICATION, LOW BASELINE. AWAIT CULTURES. CONTINUE ABX PER ID. IF MENTAL STATUS IMPROVES, SHE CAN BE STARTED ON LIQUID DIET. HOLD ELIQUIS/PLAVIX UNTIL TOMORROW.
--- NOTE | 2016-11-19 10:00 | NUR ---
NURSING NOTE: PT DROWSY BUT WILL OPEN EYES WHEN NAME CALLED. VSS CHARTED. DR. ELIZONDO AWARE OF MENTAL STATUS AND WILL CONTINUE TO MONITOR.
[2016-11-19 13:07] VITALS: BP 100/58
--- NOTE | 2016-11-19 13:15 | PN- Infect Dx ---
Subjective Subjective: Afebrile without complaints Objective Last 24 Hrs of Vital Signs/I&O Vital Signs Date Time Temp Pulse Resp B/P Pulse O2 O2 Flow FiO2 Ox Delivery Rate 11/19 1307 97.4 88 18 100/58 94 Nasal 5.0L Cannula 11/19 0822 97.3 98 18 102/60 92 Nasal 5.0L Cannula 11/19 0800 93 Nasal 5.0L Cannula 11/19 0050 97.1 89 18 102/58 94 11/19 0000 Nasal 5.0L Cannula 11/18 2130 95.5 11/18 1954 94.7 11/18 1646 79 16 96/50 97 Nasal 6.0L Cannula 11/18 1600 Nasal 6.0L Cannula Intake & Output 11/19 1600 11/19 0800 11/19 0000 Intake Total 440 320 Output Total 100 Balance 340 320 Intake, IV 320 320 Intake, Oral 120 Number 2 Bowel Movements Output, 100 Drainage Physical Exam Other Physical Findings: She remains lethargic but arousable Lungs are clear Heart regular rhythm with no murmur Abdomen distended, nontender with positive bowel sounds; cholecystostomy drain in place, with 100 mL output overnight Extremities no cyanosis, clubbing or edema Results Last 24 Hours of Lab Results: Laboratory Tests 11/19 0640 Chemistry Sodium (137 - 145 mmol/L) 143 Potassium (3.5 - 5.1 mmol/L) 4.3 Chloride (98 - 107 mmol/L) 112 H Carbon Dioxide (22 - 30 mmol/L) 17 L Anion Gap (5 - 16) 14 BUN (7 - 17 mg/dL) 61 H Creatinine (0.5 - 1.0 mg/dL) 3.6 H Estimated GFR (>60 ml/min) 12 L BUN/Creatinine Ratio (7 - 25 %) 16.9 Total Bilirubin (0.2 - 1.3 mg/dL) 1.0 Direct Bilirubin (< 0.4 mg/dL) 0.9 H AST (14 - 36 U/L) 27 ALT (9 - 52 U/L) 19 Alkaline Phosphatase (<127 U/L) 88 Total Protein (6.3 - 8.2 g/dL) 5.3 L Albumin (3.5 - 5.0 g/dL) 2.4 L Hematology CBC w Diff MAN DIFF ORDERED WBC (4.8 - 10.8 /CUMM) 31.7 *H RBC (4.20 - 5.40 /CUMM) 2.88 L Hgb (12.0 - 16.0 G/DL) 7.9 L Hct (37 - 47 %) 24.0 L MCV (81.0 - 99.0 FL) 83.2 MCH (27.0 - 31.0 PG) 27.4 RDW (11.5 - 14.5 %) 20.8 H Plt Count (130 - 400 /CUMM) 337 MPV (7.4 - 10.4 FL) 8.1 Segmented Neutrophils (42.2 - 75.2 %) 96 H Lymphocytes (20.5 - 51.1 %) 1 L Monocytes (1.7 - 9.3 %) 2 Metamyelocytes (0.0 - 1.0 %) 1 Nucleated RBCs (0.0 - 0.0 /100WBC) 18 H Platelet Estimate (ADEQUATE) VERIFIED BY SMEAR Polychromasia 1+ Hypochromic-Microcytic 1+ Poikilocytosis 3+ Anisocytosis 2+ Target Cells 2+ [place] Cells FEW PUBS MCHC (33.0 - 37.0 G/DL) 32.9 L Last 24 Hours of Jun Results: Blood cultures 2 November 17 negative Bile culture November 18 negative Recent Imaging Studies: CT of the chest November 18 reveals bilateral pleural effusions, right greater than left, with compression atelectasis of both lower lobes Assessment/Plan Impression: Stable status post placement of cholecystostomy tube yesterday for acute cholecystitis, suggested on the recent CT and HIDA scans, with aspiration of dark black bile. She remains afebrile with white blood cell count decreasing on Zosyn, with culture of the bile so far negative. Her CT of the chest findings suggest fluid overload. Renal failure persists and is felt to be secondary to ATN secondary to sepsis. Suggestion: 1. Follow-up culture of the bile 2. Follow-up recommendations from IR regarding management of the cholecystostomy tube 3. Further management of her fluid status per Renal 4. Continue Zosyn pending above
--- NOTE | 2016-11-19 14:06 | PN- Nephrology ---
Assessment/Plan Assessment: LILLIE - Clinical situation and labs c/w ATN from sepsis. Urine sediment bland ( some WBC's in the setting of UTI). Oliguric. Chest CT c/w developing pulm edema. Would stop IVF. No acute need for dialysis today - will need to continue to closely monitor. Anasarca - low albumin - likely negative acute phase reactant and nutritional. Cannot be explained by nephrosis or liver disease (at least based on imaging). Cholecystitis UTI - on treatment. Suggestion: -Stop IVF -Cont to monitor daily BMP - no acute need for dialysis today Subjective Subjective: Went for perc will tube WBC 47->31 SCr 3.3->3.6 Remains on IVF at 40cc/hr UOP from yesterday not recorded 100cc UOP so far recorded today CT yesterday suggestive of developing CHF Objective Vital Signs and I&Os Vital Signs Date Time Temp Pulse Resp B/P Pulse O2 O2 Flow FiO2 Ox Delivery Rate 11/19 1307 97.4 88 18 100/58 94 Nasal 5.0L Cannula 11/19 0822 97.3 98 18 102/60 92 Nasal 5.0L Cannula 11/19 0800 93 Nasal 5.0L Cannula 11/19 0050 97.1 89 18 102/58 94 11/19 0000 Nasal 5.0L Cannula 11/18 2130 95.5 11/18 1954 94.7 11/18 1646 79 16 96/50 97 Nasal 6.0L Cannula 11/18 1600 Nasal 6.0L Cannula Intake & Output 11/19 1600 11/19 0400 11/18 1600 11/18 0400 11/17 1600 11/17 0400 Intake Total 440 339 727 4906 420 Output Total 25 75 450 250 Balance 415 434 610 3661 170 Intake, IV 320 539 407 0719 300 Intake, Oral 120 0 120 120 Number 2 1 0 Bowel Movements Output, 25 75 Drainage Output, Urine 450 250 Physical Exam: Gen - lethargic HEENT - supple CV - RRR CHest - clear anteriorly Abd - soft, nondistended Ext - quadriplegic, no edema Neuro - lethargic Current Medications: Current Medications Sig/Kobi Start time Last Medication Dose Route Stop Time Status Admin Acetaminophen 650 MG Q6P PRN 11/14 1615 AC 11/18 PO 1622 Acetaminophen 1,000 MG Q6P PRN 11/14 1615 AC 11/18 IV 2256 Allopurinol 50 MG DAILY 11/15 1000 AC 11/18 PO 0902 Baclofen 2.5 MG BID 11/14 2200 AC 11/18 PO 0902 Cholecalciferol 1,000 IU DAILY 11/15 1000 AC 11/18 PO 0902 Dextrose/Sodium 1,000 ML Q13H 11/17 1015 AC 11/19 Chloride IV 1306 Ferrous Sulfate 325 MG BID 11/14 2200 AC 11/18 PO 0902 Gabapentin 100 MG DAILY 11/14 1600 AC 11/18 PO 0902 Lactobacillus 1 CAP DAILY 11/15 1000 AC 11/18 Acidophilus PO 0902 Levothyroxine Sodium 0.05 MG DAILY AC 11/15 0700 AC 11/19 PO 0622 Lidocaine 0 .STK-MED ONE 11/18 1509 DC .ROUTE Morphine Sulfate 1 MG Q6-PRN PRN 11/14 1615 AC IV Multivitamins 1 TAB DAILY 11/15 1000 AC 11/18 Therapeutic PO 0902 Piperacillin Sod/ 2.25 GM Q8H 11/17 0000 AC 11/19 Tazobactam Sod IV 0840 Sodium Chloride 50 ML Potassium Chloride 40 MEQ BID 11/180 DC 11/18 PO 2247 Results Pertinent Lab Results: Laboratory Tests 11/19 11/18 0640 0830 Chemistry Sodium (137 - 145 mmol/L) 143 141 Potassium (3.5 - 5.1 mmol/L) 4.3 3.5 Chloride (98 - 107 mmol/L) 112 H 107 Carbon Dioxide (22 - 30 mmol/L) 17 L 21 L Anion Gap (5 - 16) 14 13 BUN (7 - 17 mg/dL) 61 H 63 H Creatinine (0.5 - 1.0 mg/dL) 3.6 H 3.3 H Estimated GFR (>60 ml/min) 12 L 13 L BUN/Creatinine Ratio (7 - 25 %) 16.9 19.1 Total Bilirubin (0.2 - 1.3 mg/dL) 1.0 Direct Bilirubin (< 0.4 mg/dL) 0.9 H AST (14 - 36 U/L) 27 ALT (9 - 52 U/L) 19 Alkaline Phosphatase (<127 U/L) 88 Total Protein (6.3 - 8.2 g/dL) 5.3 L Albumin (3.5 - 5.0 g/dL) 2.4 L Hematology CBC w Diff MAN DIFF ORDERED WBC (4.8 - 10.8 /CUMM) 31.7 *H RBC (4.20 - 5.40 /CUMM) 2.88 L Hgb (12.0 - 16.0 G/DL) 7.9 L Hct (37 - 47 %) 24.0 L MCV (81.0 - 99.0 FL) 83.2 MCH (27.0 - 31.0 PG) 27.4 RDW (11.5 - 14.5 %) 20.8 H Plt Count (130 - 400 /CUMM) 337 MPV (7.4 - 10.4 FL) 8.1 Segmented Neutrophils (42.2 - 75.2 %) 96 H Lymphocytes (20.5 - 51.1 %) 1 L Monocytes (1.7 - 9.3 %) 2 Metamyelocytes (0.0 - 1.0 %) 1 Nucleated RBCs (0.0 - 0.0 /100WBC) 18 H Platelet Estimate (ADEQUATE) VERIFIED BY SMEAR Polychromasia 1+ Hypochromic-Microcytic 1+ Poikilocytosis 3+ Anisocytosis 2+ Target Cells 2+ [place] Cells FEW PUBS MCHC (33.0 - 37.0 G/DL) 32.9 L 11/18 619 Hematology CBC w Diff MAN DIFF ORDERED WBC (4.8 - 10.8 /CUMM) 47.3 *H RBC (4.20 - 5.40 /CUMM) 3.03 L Hgb (12.0 - 16.0 G/DL) 8.3 L Hct (37 - 47 %) 25.3 L MCV (81.0 - 99.0 FL) 83.4 MCH (27.0 - 31.0 PG) 27.2 RDW (11.5 - 14.5 %) 20.7 H Plt Count (130 - 400 /CUMM) 321 MPV (7.4 - 10.4 FL) 9.1 Gran % (42.2 - 75.2 %) 94.8 H Lymphocytes % (20.5 - 51.1 %) 2.1 L Monocytes % (1.7 - 9.3 %) 3.1 Eosinophils % (0 - 5 %) 0 Basophils % (0.0 - 2.0 %) 0 L Absolute Granulocytes (1.4 - 6.5 /CUMM) 44.9 H Segmented Neutrophils (42.2 - 75.2 %) 95 H Band Neutrophils (0.0 - 5.0 %) 3 Absolute Lymphocytes (1.2 - 3.4 /CUMM) 1.0 L Lymphocytes (20.5 - 51.1 %) 2 L Absolute Monocytes (0.10 - 0.60 /CUMM) 1.4 H Absolute Eosinophils (0.0 - 0.7 /CUMM) 0 Absolute Basophils (0.0 - 0.2 /CUMM) 0 Nucleated RBCs (0.0 - 0.0 /100WBC) 3 H Platelet Estimate (ADEQUATE) VERIFIED BY SMEAR Polychromasia 1+ Poikilocytosis 3+ Anisocytosis 2+ Target Cells 2+ [place] Cells 1+ Schistocytes PUBS MCHC (33.0 - 37.0 G/DL) 32.6 L 11/17 11/17 0836 0059 Chemistry Sodium (137 - 145 mmol/L) 136 L 136 L Potassium (3.5 - 5.1 mmol/L) 3.7 3.9 Chloride (98 - 107 mmol/L) 104 104 Carbon Dioxide (22 - 30 mmol/L) 21 L 17 L Anion Gap (5 - 16) 11 15 BUN (7 - 17 mg/dL) 68 H 71 H Creatinine (0.5 - 1.0 mg/dL) 3.5 H 3.5 H Estimated GFR (>60 ml/min) 13 L 13 L BUN/Creatinine Ratio (7 - 25 %) 19.4 20.3 Hematology CBC w Diff MAN DIFF ORDERED WBC (4.8 - 10.8 /CUMM) 48.7 *H RBC (4.20 - 5.40 /CUMM) 3.08 L Hgb (12.0 - 16.0 G/DL) 8.4 L Hct (37 - 47 %) 25.7 L MCV (81.0 - 99.0 FL) 83.5 MCH (27.0 - 31.0 PG) 27.2 RDW (11.5 - 14.5 %) 19.6 H Plt Count (130 - 400 /CUMM) 273 MPV (7.4 - 10.4 FL) 7.9 Gran % (42.2 - 75.2 %) 92.1 H Lymphocytes % (20.5 - 51.1 %) 4.5 L Monocytes % (1.7 - 9.3 %) 3.4 Eosinophils % (0 - 5 %) 0 Basophils % (0.0 - 2.0 %) 0 L Absolute Granulocytes (1.4 - 6.5 /CUMM) 44.9 H Segmented Neutrophils (42.2 - 75.2 %) 92 H Band Neutrophils (0.0 - 5.0 %) 1 Absolute Lymphocytes (1.2 - 3.4 /CUMM) 2.2 Lymphocytes (20.5 - 51.1 %) 1 L Monocytes (1.7 - 9.3 %) 6 Absolute Monocytes (0.10 - 0.60 /CUMM) 1.7 H Absolute Eosinophils (0.0 - 0.7 /CUMM) 0 Absolute Basophils (0.0 - 0.2 /CUMM) 0 Nucleated RBCs (0.0 - 0.0 /100WBC) 4 H Platelet Estimate (ADEQUATE) VERIFIED BY SMEAR Polychromasia 1+ Poikilocytosis 2+ Anisocytosis 2+ Target Cells 2+ PUBS MCHC (33.0 - 37.0 G/DL) 32.6 L 11/16 1625 Chemistry Sodium (137 - 145 mmol/L) 137 Potassium (3.5 - 5.1 mmol/L) 4.3 Chloride (98 - 107 mmol/L) 107 Carbon Dioxide (22 - 30 mmol/L) 14 L Anion Gap (5 - 16) 17 H BUN (7 - 17 mg/dL) 72 H Creatinine (0.5 - 1.0 mg/dL) 3.6 H Estimated GFR (>60 ml/min) 12 L BUN/Creatinine Ratio (7 - 25 %) 20.0 Coagulation PT (9.4 - 12.5 SEC) 17.0 H INR (0.90 - 1.19) 1.63 H Hematology CBC w Diff NO MAN DIFF REQ WBC (4.8 - 10.8 /CUMM) 50.9 *H RBC (4.20 - 5.40 /CUMM) 3.33 L Hgb (12.0 - 16.0 G/DL) 8.9 L Hct (37 - 47 %) 27.6 L MCV (81.0 - 99.0 FL) 82.8 MCH (27.0 - 31.0 PG) 26.9 L RDW (11.5 - 14.5 %) 20.8 H Plt Count (130 - 400 /CUMM) 302 MPV (7.4 - 10.4 FL) 8.4 Gran % (42.2 - 75.2 %) 94.6 H Lymphocytes % (20.5 - 51.1 %) 1.1 L Monocytes % (1.7 - 9.3 %) 4.2 Eosinophils % (0 - 5 %) 0 Basophils % (0.0 - 2.0 %) 0.1 Absolute Granulocytes (1.4 - 6.5 /CUMM) 48.2 H Absolute Lymphocytes (1.2 - 3.4 /CUMM) 0.6 L Absolute Monocytes (0.10 - 0.60 /CUMM) 2.1 H Absolute Eosinophils (0.0 - 0.7 /CUMM) 0 Absolute Basophils (0.0 - 0.2 /CUMM) 0 PUBS MCHC (33.0 - 37.0 G/DL) 32.5 L Imaging/Other Studies: CAT - CT CHEST WO IV CONTRAST EXAMINATION: CT CHEST WITHOUT CONTRAST CLINICAL INFORMATION: 81-year-old patient with sepsis. Status post cholecystostomy tube today. Change in the chest x-ray. CT recommended. COMPARISON: Chest x-ray done yesterday. CTA of the chest on 10/25/2015. TECHNIQUE: Multidetector volumetric CT imaging of the chest was done. Axial MIP volume rendering provided. Sagittal and coronal reformatted images were obtained. DLP: 304 mGy-cm FINDINGS: ULTRASOUND SPECIALIST: Bibasilar airspace disease and right pleural effusion. Contrast in the gallbladder introduced via the cholecystostomy tube. Cholelithiasis. LUNGS: Both lower lobes show evidence of compression atelectasis worse on the right than left. Mild groundglass opacity in the aerated portions of both lungs could represent early edema. MEDIASTINUM: Calcifications of the coronary arteries. The heart is enlarged. PLEURA: There are bilateral pleural effusions larger on the right than left. 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 These may indicate prior exposure to asbestos. AXILLA: No lymphadenopathy. UPPER ABDOMEN: Small amount of perihepatic ascites. Contrasted in the gallbladder from a previous injection view of the cholecystostomy tube. Cholelithiasis. Mild anasarca. OSSEOUS STRUCTURES: No acute. IMPRESSION: 1. Bilateral pleural effusions larger on the right than left. 2. Compression atelectasis of portions of both lower lobes. Consider early pulmonary edema in the aerated portions of both lungs. 3. Cholelithiasis, status post cholecystostomy tube placement. 4. Calcified pleural plaques. 5. Small volume ascites. Mild anasarca. The findings above could be compatible with CHF. EXAMINATION: CT ABDOMEN AND PELVIS WITHOUT CONTRAST CLINICAL INFORMATION: Secondary urologic sepsis. COMPARISON: None TECHNIQUE: Multidetector volumetric imaging was performed from the superior aspect of the liver through the pubic symphysis. Sagittal and coronal reformatted images were obtained on the technologist's workstation. DLP: 548 mGy-cm FINDINGS: LUNG BASES: The heart is enlarged with extensive atherosclerotic coronary calcifications and/or stent There is a there is volume loss involving the right lower lobe with associated infiltrate and atelectasis, age indeterminate, clinical correlation for pneumonia is recommended. There are small bilateral pleural effusions with subsegmental atelectasis dependently at the lung bases. Discoid atelectasis or scarring is favored in the lingula. LIVER AND SPLEEN: Unremarkable on this noncontrast examination. PANCREAS GALLBLADDER AND BILIARY TREE: The gallbladder is hydropic with a single 1.6 cm calcified stone dependently identified in the body of the gallbladder. No calcified stone is identified impacted in the gallbladder neck. There is mild pericholecystic soft tissue stranding without evidence of pericholecystic fluid. Ultrasound imaging could be performed to further evaluate. There is no evidence of intra or extrahepatic biliary ductal dilatation. Pancreas appears unremarkable. KIDNEYS, URETERS, AND ADRENALS: Kidneys appear mildly atrophic without evidence of hydronephrosis or urolithiasis. No focal adrenal masses are seen. URINARY BLADDER: Urinary bladder is collapsed containing a Sanchez catheter and a moderate amount of air likely iatrogenic. GI TRACT: There are numerous of mildly distended air-filled loops loops of small bowel throughout the abdomen gradually transitioning to more nondistended ileal loops in the pelvis without evidence of a clear transition zone. No obstructing mass is seen in these are likely related to an ileus type pattern. The appendix is retrocecal in position and mildly distended during up to 10 mm in transverse dimension only some very minimal surrounding soft tissue stranding suggested. Clinical correlation for an acute appendicitis is suggested. Surgical consultation should be considered. PERITONEAL CAVITY: No intraperitoneal free fluid is identified. RETROPERITONEUM: Extensive atherosclerotic aortic calcification without aneurysmal dilatation. IVC filter is identified. There is no evidence of retroperitoneal or mesenteric lymphadenopathy. PELVIC ORGANS: Uterus and adnexa appear unremarkable, urinary bladder as noted above. 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 There are mild degenerative changes in the lumbar spine. ANTERIOR ABDOMINAL WALL AND SOFT TISSUES: There is mild diffuse anasarca suggested. No underlying hernias are identified. IMPRESSION: 1. Findings suggestive of a right lower lobe pneumonia with associated atelectasis. 2. Cholelithiasis with a hydropic gallbladder with mild inflammatory changes. 3. Mildly distended small bowel loops including a 1 cm appendix with only minimal surrounding soft tissue stranding. Clinical correlation for acute appendicitis. 4. Given the gallbladder appendix and small bowel changes, findings are more likely related to physiologic decreased function related to the patient's clinical status, although surgical consultation should be considered. 5. Mild anasarca.
--- NOTE | 2016-11-19 15:53 | NUR ---
NUSING NOTE: PT BECOMING MORE DIFFICULT TO AROUSE. VSS STABLE CHARTED. [facility] #[id number] ELIZONDO AT BEDSIDE. PT OPENED EYES BUT DID NOT VERBALLY RESPOND. CT ORDERED. WILL CONTINUE TO MONITIOR.
[2016-11-19 16:00] VITALS: BP 101/48
[2016-11-19 22:24] VITALS: BP 140/60
--- NOTE | 2016-11-20 02:03 | NUR ---
NOTED GENERALIZED EDEMA, DR. MAKENZIE BROOKS #420 MADE AWARE. CURRENTLY TWO OF PT DAUGHTERS AT BEDSIDE. IV #22 RFA D51/2NS @ 75. PERCUTEANOUS DRAIN TO GRAVITY DSG CDI, PT NPO, 4.5 L NS. ALPS. CALL LIGHT WITHIN REACH
--- NOTE | 2016-11-20 02:44 | NUR ---
LOOSE/ LIQUID STOOL X2 DARK IN COLOR : GUIAC +. LAST H&H 7.06/15. NOTIFIED DR. MAKENZIE BROOKS #[id number] OF POSITIVE GUIAC AT THIS TIME.
[2016-11-20 02:49] VITALS: BP 142/62
[2016-11-20 08:03] LABS: HEMATOCRIT 24.3 % (37-47); MEAN CORPUSCULAR HGB CONC 32.2 G/DL (33.0-37.0); MEAN CORPUSCULAR VOLUME 83.8 FL (81.0-99.0); MEAN PLATELET VOLUME 8.6 FL (7.4-10.4); PLATELET COUNT 389 /CUMM (130-400); RBC DISTRIBUTION WIDTH 20.6 % (11.5-14.5)
--- NOTE | 2016-11-20 08:15 | PN- Housestaff ---
[facility]49: Subjective Follow-up For: Sepsis secondary to acute cholecystitis s/o cholecystotomy tube. LILLIE Complaints: patient is drowsy, unable to communicate.as per the daughter, she has been lethargic since the procedure. Subjective: Patient is very drowsy and lethargic. She is unable to communicate. As per the daughter, she has been drowsy since the procedure. She could speak only one sentence since the last 2 days. She was scheduled for a CAT scan of the head yesterday due to the drowsiness and altered mental status which got canceled as the patient was agitated during the procedure. Also noted she had 1 large dark bowel movements yesterday and was found to be guaiac positive. H&H 7.06/15. She is status post cholecystostomy tube. Review of Systems Constitutional: Reports: see HPI, weakness. EENTM: Reports: see HPI. Respiratory: Reports: see HPI. Gastrointestinal: Reports: see HPI. Genitourinary: Reports: see HPI. Musculoskeletal: Reports: see HPI. Objective Last 24 Hrs of Vital Signs/I&O Vital Signs Date Time Temp Pulse Resp B/P Pulse O2 O2 Flow FiO2 Ox Delivery Rate 11/20 0249 97.8 98 22 142/62 90 Nasal Cannula 11/20 0000 90 Nasal 4.5L Cannula 11/19 2224 98.2 98 22 140/60 90 Nasal 4.5L Cannula 11/19 1600 94 Nasal 4.0L Cannula 11/19 1600 98.2 91 18 101/48 94 Nasal 4.0L Cannula 11/19 1307 97.4 88 18 100/58 94 Nasal 5.0L Cannula 11/19 0822 97.3 98 18 102/60 92 Nasal 5.0L Cannula 11/19 0800 93 Nasal 5.0L Cannula Intake & Output 11/20 0800 11/20 0000 11/19 1600 Intake Total 600 320 Output Total 10 30 30 Balance 590 -30 290 Intake, IV 600 320 Intake, Oral 0 Number 2 1 Bowel Movements Output, 10 30 30 Drainage Physical Exam General Appearance: drowsy but arousable Skin: cholecystostomy tube with reddish-brown drainage on the right side HEENT: Atraumatic, PERRLA, EOMI, dry mucosa Neck: No JVD Cardiovascular: Regular Rate, Normal S1, Normal S2, No Murmurs Lungs: decreased breath sounds bilaterally Abdomen: cholecystotomy tube draining bile Neurological: paraplegic status post spinal cord stroke Extremities: No Edema, Normal Pulses Vascular: Normal Pulses Current Medications: Current Medications Sig/Kobi Start time Last Medication Dose Route Stop Time Status Admin Acetaminophen 650 MG .STK-MED ONE 11/19 1822 DC PO 11/19 1823 Acetaminophen 650 MG Q6P PRN 11/14 1615 AC 11/18 PO 1622 Acetaminophen 1,000 MG Q6P PRN 11/14 1615 AC 11/20 IV 0714 Allopurinol 50 MG DAILY 11/15 1000 AC 11/18 PO 0902 Apixaban 2.5 MG BID 11/20 1000 AC PO Baclofen 2.5 MG BID 11/14 2200 AC 11/19 PO 2113 Cholecalciferol 1,000 IU DAILY 11/15 1000 AC 11/18 PO 0902 Clopidogrel Bisulfate 75 MG DAILY 11/20 1000 AC PO Dextrose/Sodium 1,000 ML Q13H 11/19 1600 AC 11/20 Chloride IV 0627 Dextrose/Sodium 1,000 ML Q13H 11/17 1015 DC 11/19 Chloride IV 1306 Ferrous Sulfate 325 MG BID 11/14 2200 AC 11/18 PO 0902 Gabapentin 100 MG DAILY 11/14 1600 AC 11/18 PO 0902 Lactobacillus 1 CAP DAILY 11/15 1000 AC 11/18 Acidophilus PO 0902 Levothyroxine Sodium 0.05 MG DAILY AC 11/15 0700 AC 11/19 PO 0622 Melatonin 3 MG AT BEDTIME PRN 11/19 1545 AC PO Morphine Sulfate 1 MG Q6-PRN PRN 11/14 1615 AC IV Multivitamins 1 TAB DAILY 11/15 1000 AC 11/18 Therapeutic PO 0902 Piperacillin Sod/ 2.25 GM Q8H 11/17 0000 AC 11/20 Tazobactam Sod IV 0000 Sodium Chloride 50 ML Potassium Chloride 40 MEQ BID 11/18 2200 DC 11/18 PO 2247 Last 24 Hrs of Lab/Jun Results Last 24 Hrs of Labs/Mics: Laboratory Tests 11/20/16 0630: Sodium Pending, Potassium Pending, Chloride Pending, Carbon Dioxide Pending, Anion Gap Pending, BUN Pending, Creatinine Pending, BUN/Creatinine Ratio Pending , CBC w Diff Pending, WBC Pending, RBC Pending, Hgb Pending, Hct Pending, MCV Pending, MCH Pending, RDW Pending, Plt Count Pending, MPV Pending, PUBS MCHC Pending Assessment/Plan Assessment: 81 yo female with pmh of HTN, hypothyroidism, HLD, CKD, quadriplegia s/p spinal cord stroke, DVT/PE on eliquis, Renal artery stenosis s/p renal artery stenting, who is a resident at [facility] was brought in with fever and possible UTI. Now status post cholecystectomy tube. 1. Acute cholecystitis status post cholecystostomy tube * s/p cholecystostomy tube day 2. Draining bile 70 mL in the last 24 hours. * Initial Culture results from biliary drainage shows no growth. * ID consult appreciated * IV zosyn #5 pending culture and sensitivity. * Chest CT revealed bilateral pleural effusion Rt > Lt, small bowel ascites, mild anasarca * Urine cultures positive for morganella morganii, providencia 2. Acute kidney injury/ATN from sepsis/anasarca, low albumin * Cr pending. Yesterday she 0.6. * IV fluids have been stopped due to developing pulmonary edema as per cnc supervisor recommendations. * Likely from ATN secondary to sepsis with FeNa 3%. * Closely monitor BEP. 3. Cholelithiasis with hydropic gallbladder: * Eliquis and Plavix on hold from 11/15. * s/p cholecystostomy tube placement by IR 1DA with biliary drainage culture, follow up culture. 4. Acute on chronic anemia : * Patient has one episode of dark stool yesterday. Guaiac-positive stools. Dropping H&H H&H 7. 06/15. It is post 1 unit of blood transfusion * We'll continue holding Eliquis and Plavix for now * Will transfuse 1 unit to keep hemoglobin above 7 * GI consult appreciated. * Last colonoscopy about 10 years ago without abnormal results (from [facility]) 5. Altered mental status/lethargy * CT scan ordered yesterday was canceled due to patient being lethargic. 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 c/w baclofen for spasticity & gabapentin 7. Hx of DVT/PE s/p IVC filter: * Holding eliquis and plavix for were positive stools and drop in H&H. 8. Hypothyroidism: * c/w levothyroxine 50mcg daily 9. HTN: hold nifedipine for borderline BP. 10. Dilated appendix: about 10mm, low clinical suspicion for acute appendicitis per surgery. DVT ppx: po eliquis on hold, ALPS for now, full code. Problem List: 1. Acute cholecystitis 2. Acute kidney injury 3. Full code status 4. Volume overload 5. Chronic kidney disease Pain Ratin Pain Location: Abdomen Pain Goal: Pain 4 or less Pain Plan: po/iv tyrenol IV morphine Tomorrow's Labs & Rationales: CBC: sepsis BEP: LILLIE Consulting Request: Consulting Specialty: Neurology Consulting Physician: Dr. Rodriguez Reason for Consult: LILLIE, metabolic acidosis CNADE ELIZONDO MD 11/20/16 1535: Attending MD Review Statement Attending Statement Attending MD Statement: examined this patient, discuss w/resident/PA/MACHINIST SUPERVISOR OUTSIDE, agreed w/resident/PA/MACHINIST SUPERVISOR OUTSIDE, discussed with family, reviewed EMR data (avail), discussed with nursing, discussed with case mgmt, reviewed images, amended to note Attending Assessment/Plan: The patient was seen and discussed with house staff. Agree with the plan of care as outlined.
[2016-11-20 08:45] VITALS: BP 140/74
--- NOTE | 2016-11-20 09:34 | CT SCAN REPORT ---
EXAMINATION: CT HEAD WITHOUT CONTRAST CLINICAL INFORMATION: Altered mental status. Lethargy. Evaluate for an acute intracranial pathology. COMPARISON: Head CT from 03/26/2016. TECHNIQUE: Contiguous axial imaging was performed from the skull base to vertex without intravenous administration of contrast. DLP: 551.19 mGy-cm FINDINGS: product/device technologist reports that patient would not cooperate and was moving her head during the examination. Images were motion degraded and repeated. However, patient continued to move during the test. There is atherosclerotic calcification of the left vertebral artery and carotid siphons. There is physiologic calcification of the right globus pallidus. No gross evidence for acute intracranial hemorrhage or extra-axial fluid collection. Also, no gross evidence for acute major vascular territory infarction. The ventricles have normal size and configuration; no hydrocephalus. There are secretions layering within the sphenoid sinus. The calvarium appears intact and mastoid air cells and middle ear cavities are grossly clear. IMPRESSION: - Suboptimal CT examination of the head due to patient motion. - No gross evidence for acute intracranial pathology on the motion degraded images.
[2016-11-20 09:43] LABS: WHITE BLOOD CELL COUNT 34.2 /CUMM (4.8-10.8)
[2016-11-20 11:43] VITALS: BP 144/60
--- NOTE | 2016-11-20 12:04 | PN- General Surgery ---
Subjective Subjective: stable without change. mental status remains poor. no fevers. Review of Systems: unobtainable Objective Vital Signs and I&Os Vital Signs Date Time Temp Pulse Resp B/P Pulse O2 O2 Flow FiO2 Ox Delivery Rate 11/20 1143 97.4 96 22 144/60 91 Nasal 6.0L Cannula 11/20 0845 98.0 104 22 140/74 90 Nasal 6.0L Cannula 11/20 0249 97.8 98 22 142/62 90 Nasal Cannula 11/20 0000 90 Nasal 4.5L Cannula 11/19 2224 98.2 98 22 140/60 90 Nasal 4.5L Cannula 11/19 1600 94 Nasal 4.0L Cannula 11/19 1600 98.2 91 18 101/48 94 Nasal 4.0L Cannula 11/19 1307 97.4 88 18 100/58 94 Nasal 5.0L Cannula Intake & Output 11/20 1600 11/20 0800 11/20 0000 11/19 1600 11/19 0800 11/19 0000 Intake Total 600 320 440 320 Output Total 10 30 30 100 Balance 590 -30 290 340 320 Intake, IV 600 320 320 320 Intake, Oral 0 120 Number 2 1 2 Bowel Movements Output, 10 30 30 100 Drainage Physical Exam: Gen.: No distress not alert. Opens eyes to voice. Abdomen: Soft nontender nondistended. Bloody bile in the drain Current Medications: Current Medications Sig/Kobi Start time Last Medication Dose Route Stop Time Status Admin Acetaminophen 650 MG .STK-MED ONE 11/19 1822 DC PO 11/19 1823 Acetaminophen 650 MG Q6P PRN 11/14 1615 AC 11/18 PO 1622 Acetaminophen 1,000 MG Q6P PRN 11/14 1615 AC 11/20 IV 0714 Allopurinol 50 MG DAILY 11/15 1000 AC 11/20 PO 1047 Apixaban 2.5 MG BID 11/20 1000 CAN PO Baclofen 2.5 MG BID 11/14 2199 AC 11/20 PO 1047 Cholecalciferol 1,000 IU DAILY 11/15 1000 AC 11/18 PO 0902 Clopidogrel Bisulfate 75 MG DAILY 11/20 1000 CAN PO Dextrose/Sodium 1,000 ML Q13H 11/19 1600 DC 11/20 Chloride IV 0627 Dextrose/Sodium 1,000 ML Q13H 11/17 1015 DC 11/19 Chloride IV 1306 Ferrous Sulfate 325 MG BID 11/14 2199 AC 11/18 PO 0902 Gabapentin 100 MG DAILY 11/14 1600 AC 11/20 PO 1046 Lactobacillus 1 CAP DAILY 11/15 1000 AC 11/18 Acidophilus PO 0902 Levothyroxine Sodium 0.05 MG DAILY AC 11/15 0700 AC 11/19 PO 0622 Melatonin 3 MG AT BEDTIME PRN 11/19 1545 AC PO Morphine Sulfate 1 MG Q6-PRN PRN 11/14 1615 AC IV Multivitamins 1 TAB DAILY 11/15 1000 AC 11/18 Therapeutic PO 0902 Omeprazole 40 MG DAILY AC 11/20 0954 AC PO Piperacillin Sod/ 2.25 GM Q8H 11/17 0000 AC 11/20 [place] 0850 Sodium Chloride 50 ML Results Last 48 Hours of Labs: Laboratory Tests 11/20 11/19 0630 0640 Chemistry Sodium (137 - 145 mmol/L) 144 143 Potassium (3.5 - 5.1 mmol/L) 4.8 4.3 Chloride (98 - 107 mmol/L) 111 H 112 H Carbon Dioxide (22 - 30 mmol/L) 19 L 17 L Anion Gap (5 - 16) 13 14 BUN (7 - 17 mg/dL) 58 H 61 H Creatinine (0.5 - 1.0 mg/dL) 3.5 H 3.6 H Estimated GFR (>60 ml/min) 13 L 12 L BUN/Creatinine Ratio (7 - 25 %) 16.6 16.9 Total Bilirubin (0.2 - 1.3 mg/dL) 1.0 Direct Bilirubin (< 0.4 mg/dL) 0.9 H AST (14 - 36 U/L) 27 ALT (9 - 52 U/L) 19 Alkaline Phosphatase (<127 U/L) 88 Total Protein (6.3 - 8.2 g/dL) 5.3 L Albumin (3.5 - 5.0 g/dL) 2.4 L Hematology CBC w Diff MAN DIFF ORDERED MAN DIFF ORDERED WBC (4.8 - 10.8 /CUMM) 34.2 *H 31.7 *H RBC (4.20 - 5.40 /CUMM) 2.90 L 2.88 L Hgb (12.0 - 16.0 G/DL) 7.8 L 7.9 L Hct (37 - 47 %) 24.3 L 24.0 L MCV (81.0 - 99.0 FL) 83.8 83.2 MCH (27.0 - 31.0 PG) 27.0 27.4 RDW (11.5 - 14.5 %) 20.6 H 20.8 H Plt Count (130 - 400 /CUMM) 389 337 MPV (7.4 - 10.4 FL) 8.6 8.1 Segmented Neutrophils (42.2 - 75.2 %) 92 H 96 H Band Neutrophils (0.0 - 5.0 %) 1 Lymphocytes (20.5 - 51.1 %) 3 L 1 L Monocytes (1.7 - 9.3 %) 3 2 Metamyelocytes (0.0 - 1.0 %) 1 1 Nucleated RBCs (0.0 - 0.0 /100WBC) 17 H 18 H Platelet Estimate (ADEQUATE) VERIFIED BY SMEAR VERIFIED BY SMEAR Polychromasia 1+ 1+ Hypochromic-Microcytic 1+ Poikilocytosis 2+ 3+ Anisocytosis 2+ 2+ Target Cells 2+ 2+ Patsy Cells 1+ FEW PUBS MCHC (33.0 - 37.0 G/DL) 32.2 L 32.9 L Assessment/Plan Assessment/Plan Acute cholecystitis status post percutaneous drainage. Although the cultures do not show bacteria, the effluent from the drain is consistent with severe acute cholecystitis. Her white blood cell count remains elevated at 30,000. Her mental status remains unchanged as does her acute renal failure. Continue supportive cares.
--- NOTE | 2016-11-20 12:43 | PN- Infect Dx ---
Subjective Subjective: Afebrile. She is unable to provide any history. 5 stools reported yesterday, with at least one loose, dark stool reported Objective Last 24 Hrs of Vital Signs/I&O Vital Signs Date Time Temp Pulse Resp B/P Pulse O2 O2 Flow FiO2 Ox Delivery Rate 11/20 1143 97.4 96 22 144/60 91 Nasal 6.0L Cannula 11/20 0845 98.0 104 22 140/74 90 Nasal 6.0L Cannula 11/20 0249 97.8 98 22 142/62 90 Nasal Cannula 11/20 0000 90 Nasal 4.5L Cannula 11/19 2224 98.2 98 22 140/60 90 Nasal 4.5L Cannula 11/19 1600 94 Nasal 4.0L Cannula 11/19 1600 98.2 91 18 101/48 94 Nasal 4.0L Cannula 11/19 1307 97.4 88 18 100/58 94 Nasal 5.0L Cannula Intake & Output 11/20 1600 11/20 0800 11/20 0000 Intake Total 600 Output Total 10 30 Balance 590 -30 Intake, IV 600 Number 2 Bowel Movements Output, 10 30 Drainage Physical Exam Other Physical Findings: She is minimally responsive Lungs decreased breath sounds bilaterally Heart regular rhythm with no murmur Abdomen is distended, no obvious tenderness, positive bowel sounds; cholecystostomy tube in place with 172 mL output yesterday Extremities no cyanosis, clubbing or edema Results Last 24 Hours of Lab Results: Laboratory Tests 11/20 0630 Chemistry Sodium (137 - 145 mmol/L) 144 Potassium (3.5 - 5.1 mmol/L) 4.8 Chloride (98 - 107 mmol/L) 111 H Carbon Dioxide (22 - 30 mmol/L) 19 L Anion Gap (5 - 16) 13 BUN (7 - 17 mg/dL) 58 H Creatinine (0.5 - 1.0 mg/dL) 3.5 H Estimated GFR (>60 ml/min) 13 L BUN/Creatinine Ratio (7 - 25 %) 16.6 Hematology CBC w Diff MAN DIFF ORDERED WBC (4.8 - 10.8 /CUMM) 34.2 *H RBC (4.20 - 5.40 /CUMM) 2.90 L Hgb (12.0 - 16.0 G/DL) 7.8 L Hct (37 - 47 %) 24.3 L MCV (81.0 - 99.0 FL) 83.8 MCH (27.0 - 31.0 PG) 27.0 RDW (11.5 - 14.5 %) 20.6 H Plt Count (130 - 400 /CUMM) 389 MPV (7.4 - 10.4 FL) 8.6 Segmented Neutrophils (42.2 - 75.2 %) 92 H Band Neutrophils (0.0 - 5.0 %) 1 Lymphocytes (20.5 - 51.1 %) 3 L Monocytes (1.7 - 9.3 %) 3 Metamyelocytes (0.0 - 1.0 %) 1 Nucleated RBCs (0.0 - 0.0 /100WBC) 17 H Platelet Estimate (ADEQUATE) VERIFIED BY SMEAR Polychromasia 1+ Poikilocytosis 2+ Anisocytosis 2+ Target Cells 2+ Patsy Cells 1+ PUBS MCHC (33.0 - 37.0 G/DL) 32.2 L Last 24 Hours of Jun Results: Bile culture November 18 negative Recent Imaging Studies: CT of the head November 20 no acute process Assessment/Plan Impression: Persistent leukocytosis, though decreased from several days ago, on Zosyn Day 4 for presumed acute cholecystitis now 2 days status post placement of cholecystostomy tube, with culture of bile so far negative. Further evaluation of her abdomen to rule out other possible sources of infection, including the appendix, may be necessary if her white blood cell count remains elevated. She is more anemic, raising concern for GI blood loss, with the dark stool reported. Her encephalopathy is of unclear etiology, with possible etiologies including sepsis and uremia, with no improvement in her renal function. Suggestion: 1. Follow-up final culture of the bile 2. Stool for occult blood and repeat C. difficile 3. Consider repeat CT of the abdomen and pelvis if white blood cell count remains elevated 4. Follow recommendations from IR regarding management of the cholecystostomy tube 5. Continue Zosyn pending above
--- NOTE | 2016-11-20 14:10 | PN- Nephrology ---
Assessment/Plan Assessment: LILLIE - Clinical situation and labs c/w ATN from sepsis. Urine sediment bland ( some WBC's in the setting of UTI). Oliguric. Imaging evidence of volume overload but seems somewhat comfortable on exam. Low threshold to start diuretics to maintain at least net even volume status (if able). I spoke in detail to the family - her encephalopathy is likely multifactorial and in the setting of stable/improving renal function, I would be hesitant to start dialysis. Anasarca - low albumin - likely negative acute phase reactant and nutritional. Cannot be explained by nephrosis or liver disease (at least based on imaging). Cholecystitis UTI - on treatment. Suggestion: -Would have a low threshold to dose IV lasix (can start with 40mg) if SOB given imaging evidence of pulmonary edema - she is oliguric and volume overload would ultimately be the reason for initiation of dialysis -Cont to monitor daily BMP - no acute need for dialysis today Subjective Subjective: SCr stable at 3.5; 160cc UOP BUN overall downtrending - now 58 (high of 92) Na up to 144 - family trying to feed her SBP improved to 140's WBC stable at 34; afebrile; no new positive micro Family thinks she may be a bit more awake Getting 1U PRBC when I saw her (Hg 7.8) Objective Vital Signs and I&Os Vital Signs Date Time Temp Pulse Resp B/P Pulse O2 O2 Flow FiO2 Ox Delivery Rate 11/20 1143 97.4 96 22 144/60 91 Nasal 6.0L Cannula 11/20 0845 98.0 104 22 140/74 90 Nasal 6.0L Cannula 11/20 0249 97.8 98 22 142/62 90 Nasal Cannula 11/20 0000 90 Nasal 4.5L Cannula 11/19 2224 98.2 98 22 140/60 90 Nasal 4.5L Cannula 11/19 1600 94 Nasal 4.0L Cannula 11/19 1600 98.2 91 18 101/48 94 Nasal 4.0L Cannula Intake & Output 11/20 04011/19 04011/18 040 Intake Total 600 760 320 700 Output Total 10 30 55 75 Balance 590 -30 705 245 700 Intake, IV 600 640 320 700 Intake, Oral 120 0 Number 2 3 1 Bowel Movements Output, 10 30 55 75 Drainage Physical Exam: Gen - more alert although remains drowsy HEENT - anicteric sclera CV - RRR Chest - clear anteriorly Abd - soft, nontender to palpation Ext - trace b/l UE edema Neuro - drowsy; responding to some questions Current Medications: Current Medications Sig/Kobi Start time Last Medication Dose Route Stop Time Status Admin Acetaminophen 650 MG .STK-MED ONE 11/19 1822 DC PO 11/19 1823 Acetaminophen 650 MG Q6P PRN 11/14 1615 AC 11/18 PO 1622 Acetaminophen 1,000 MG Q6P PRN 11/14 1615 AC 11/20 IV 0714 Allopurinol 50 MG DAILY 11/15 1000 AC 11/20 PO 1047 Apixaban 2.5 MG BID 11/20 1000 CAN PO Baclofen 2.5 MG BID 11/14 2200 AC 11/20 PO 1047 Cholecalciferol 1,000 IU DAILY 11/15 1000 AC 11/18 PO 0902 Clopidogrel Bisulfate 75 MG DAILY 11/20 1000 CAN PO Dextrose/Sodium 1,000 ML Q13H 11/19 1600 DC 11/20 Chloride IV 0627 Dextrose/Sodium 1,000 ML Q13H 11/17 1015 DC 11/19 Chloride IV 1306 Ferrous Sulfate 325 MG BID 11/14 2200 AC 11/18 PO 0902 Gabapentin 100 MG DAILY 11/14 1600 AC 11/20 PO 1046 Lactobacillus 1 CAP DAILY 11/15 1000 AC 11/18 Acidophilus PO 0902 Levothyroxine Sodium 0.05 MG DAILY AC 11/15 0700 AC 11/19 PO 0622 Melatonin 3 MG AT BEDTIME PRN 11/19 1545 AC PO Morphine Sulfate 1 MG Q6-PRN PRN 11/14 1615 AC IV Multivitamins 1 TAB DAILY 11/15 1000 AC 11/18 Therapeutic PO 0902 Omeprazole 40 MG DAILY AC 11/20 0954 AC PO Patient Medication 1 ED .STK-MED ONE 11/20 1323 DC Teaching ED 11/20 1324 Piperacillin Sod/ 2.25 GM Q8H 11/17 0000 AC 11/20 [place]obactam [place] 0850 Sodium Chloride 50 ML Results Pertinent Lab Results: Laboratory Tests 11/20 11/19 0630 0640 Chemistry Sodium (137 - 145 mmol/L) 144 143 Potassium (3.5 - 5.1 mmol/L) 4.8 4.3 Chloride (98 - 107 mmol/L) 111 H 112 H Carbon Dioxide (22 - 30 mmol/L) 19 L 17 L Anion Gap (5 - 16) 13 14 BUN (7 - 17 mg/dL) 58 H 61 H Creatinine (0.5 - 1.0 mg/dL) 3.5 H 3.6 H Estimated GFR (>60 ml/min) 13 L 12 L BUN/Creatinine Ratio (7 - 25 %) 16.6 16.9 Total Bilirubin (0.2 - 1.3 mg/dL) 1.0 Direct Bilirubin (< 0.4 mg/dL) 0.9 H AST (14 - 36 U/L) 27 ALT (9 - 52 U/L) 19 Alkaline Phosphatase (<127 U/L) 88 Total Protein (6.3 - 8.2 g/dL) 5.3 L Albumin (3.5 - 5.0 g/dL) 2.4 L Hematology CBC w Diff MAN DIFF ORDERED MAN DIFF ORDERED WBC (4.8 - 10.8 /CUMM) 34.2 *H 31.7 *H RBC (4.20 - 5.40 /CUMM) 2.90 L 2.88 L Hgb (12.0 - 16.0 G/DL) 7.8 L 7.9 L Hct (37 - 47 %) 24.3 L 24.0 L MCV (81.0 - 99.0 FL) 83.8 83.2 MCH (27.0 - 31.0 PG) 27.0 27.4 RDW (11.5 - 14.5 %) 20.6 H 20.8 H Plt Count (130 - 400 /CUMM) 389 337 MPV (7.4 - 10.4 FL) 8.6 8.1 Segmented Neutrophils (42.2 - 75.2 %) 92 H 96 H Band Neutrophils (0.0 - 5.0 %) 1 Lymphocytes (20.5 - 51.1 %) 3 L 1 L Monocytes (1.7 - 9.3 %) 3 2 Metamyelocytes (0.0 - 1.0 %) 1 1 Nucleated RBCs (0.0 - 0.0 /100WBC) 17 H 18 H Platelet Estimate (ADEQUATE) VERIFIED BY SMEAR VERIFIED BY SMEAR Polychromasia 1+ 1+ Hypochromic-Microcytic 1+ Poikilocytosis 2+ 3+ Anisocytosis 2+ 2+ Target Cells 2+ 2+ Mckee Cells 1+ FEW PUBS MCHC (33.0 - 37.0 G/DL) 32.2 L 32.9 L 11/18 11/18 0830 0620 Chemistry Sodium (137 - 145 mmol/L) 141 Potassium (3.5 - 5.1 mmol/L) 3.5 Chloride (98 - 107 mmol/L) 107 Carbon Dioxide (22 - 30 mmol/L) 21 L Anion Gap (5 - 16) 13 BUN (7 - 17 mg/dL) 63 H Creatinine (0.5 - 1.0 mg/dL) 3.3 H Estimated GFR (>60 ml/min) 13 L BUN/Creatinine Ratio (7 - 25 %) 19.1 Hematology CBC w Diff MAN DIFF ORDERED WBC (4.8 - 10.8 /CUMM) 47.3 *H RBC (4.20 - 5.40 /CUMM) 3.03 L Hgb (12.0 - 16.0 G/DL) 8.3 L Hct (37 - 47 %) 25.3 L MCV (81.0 - 99.0 FL) 83.4 MCH (27.0 - 31.0 PG) 27.2 RDW (11.5 - 14.5 %) 20.7 H Plt Count (130 - 400 /CUMM) 321 MPV (7.4 - 10.4 FL) 9.1 Gran % (42.2 - 75.2 %) 94.8 H Lymphocytes % (20.5 - 51.1 %) 2.1 L Monocytes % (1.7 - 9.3 %) 3.1 Eosinophils % (0 - 5 %) 0 Basophils % (0.0 - 2.0 %) 0 L Absolute Granulocytes (1.4 - 6.5 /CUMM) 44.9 H Segmented Neutrophils (42.2 - 75.2 %) 95 H Band Neutrophils (0.0 - 5.0 %) 3 Absolute Lymphocytes (1.2 - 3.4 /CUMM) 1.0 L Lymphocytes (20.5 - 51.1 %) 2 L Absolute Monocytes (0.10 - 0.60 /CUMM) 1.4 H Absolute Eosinophils (0.0 - 0.7 /CUMM) 0 Absolute Basophils (0.0 - 0.2 /CUMM) 0 Nucleated RBCs (0.0 - 0.0 /100WBC) 3 H Platelet Estimate (ADEQUATE) VERIFIED BY SMEAR Polychromasia 1+ Poikilocytosis 3+ Anisocytosis 2+ Target Cells 2+ Patsy Cells 1+ Schistocytes PUBS MCHC (33.0 - 37.0 G/DL) 32.6 L Imaging/Other Studies: CT HEAD WITHOUT CONTRAST CLINICAL INFORMATION: Altered mental status. Lethargy. Evaluate for an acute intracranial pathology. COMPARISON: Head CT from 03/26/2016. TECHNIQUE: Contiguous axial imaging was performed from the skull base to vertex without intravenous administration of contrast. DLP: 551.19 mGy-cm FINDINGS: generation technologist reports that patient would not cooperate and was moving her head during the examination. Images were motion degraded and repeated. However, patient continued to move during the test. There is atherosclerotic calcification of the left vertebral artery and carotid siphons. There is physiologic calcification of the right globus pallidus. No gross evidence for acute intracranial hemorrhage or extra-axial fluid collection. Also, no gross evidence for acute major vascular territory infarction. The ventricles have normal size and configuration; no hydrocephalus. There are secretions layering within the sphenoid sinus. The calvarium appears intact and mastoid air cells and middle ear cavities are grossly clear. IMPRESSION: - Suboptimal CT examination of the head due to patient motion. - No gross evidence for acute intracranial pathology on the motion degraded images.
[2016-11-20 15:21] VITALS: BP 138/60
--- NOTE | 2016-11-20 16:30 | Cons- Gastroenterology ---
General Information and HPI Consulting Request Date of Consult: 11/20/16 Requested By: CANDE GONZALEZ MD Reason for Consult: I was notified midmorning today of a request by the hospitalist service to assess multifactorial anemia and OB positive stool, in an elderly female with numerous comorbidities, HD #7. Source of Information: family (pt's dtrs, Luz & Alba), old records Exam Limitations: unable to give history, not alert/orientated, clinical condition, confusion, poor historian History of Present Illness: 81-year-old female, fci resident at [facility], remotely seen by myself 9 years ago for anemia (OB-neg stool then), with baseline Hgb in the 9 range. She also has sickle cell (Hgb SC), and previously was evaluated by hematology in 2007, at which point, she had a low haptoglobin, but was felt not to be hemolyzing. Her other numerous issues include chronic renal insufficiency, hypertension, hyperlipidemia, hypothyroidism, gout, ? COPD, & quadriplegia x the past 3 years, secondary to a spinal artery occlusion several months after an elective decompressive laminectomy of C3-C7, which had been complicated by PE & recurrent PE, maintained on outpatient Eliquis. According to the chart, she had an IVC filter placed at some point for DVT. The patient was started on outpatient Nitrofurantoin on 11/13/2016 for fever, pyuria , and leukocytosis. She was admitted to [place] the following day, 11/14/2016, after being sent to the ER for further evaluation. She was initially afebrile, but spiked to 100.2 the evening of admission. Admission white count was 34K, Hgb 7.9, with BUN/Cr 92/4.2, TBil 1.3, AST 42 & pyuria with U/A > 75 WBC. Chest x-ray showed streaky bibasilar opacities. She was initially put on Ceftriaxone for possible urosepsis. 11/15/2016: CT AP without contrast- RLL infiltrate, cholelithiasis with hydropic gallbladder and mild inflammatory changes, mildly distended small bowel loops with 1 cm appendix, without significant periappendiceal inflammation, & mild anasarca. 11/15/16: HIDA- no gallbladder visualization consistent with cystic duct obstruction/acute cholecystitis, with normal excretion through the CBD into the small bowel. Although she remained afebrile, WBC 51K on 11/16/16, at which point antibiotics, were switched to Zosyn, to cover the biliary tree and possible UTI, although she was felt to most likely have asymptomatic bacteriuria. The patient has been seen by ID, medicine, surgery, renal, & IR. She ultimately had a 8.5 Fr percutaneous cholecystostomy placed by IR on 2016, she was felt not to be a surgical candidate. The patient remains with multifactorial poor mental status. She has required 2 units PRBC over the course of her hospitalization over the past week. Stools were reportedly dark brown (on Fe), but OB positive. There is chocolate-colored bilious fluid with mild reddish tinge, draining from the percutaneous cholecystostomy tube. Her Eliquis was held 3 days prior to the percutaneous cholecystostomy, and remains on hold for now. 11/18/2016: Cholecystostomy Gram stain- no WBC, no organisms, C&S- neg x 2 days. 11/17/2016: C. difficile- negative. 11/20/2016: C. difficile - pending. She remains with leukocytosis, although overall it has a mostly downward trend since placement of the GB tube. According to the patient's daughters, Luz & Alba, the patient had no previous GI issues except for dysphagia after a tracheostomy 3 years ago, at the time of her spinal artery occlusion, which resolved. She is a vegetarian. 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 The diarrhea resolved, only to recur 2 days ago, described as semi- formed, up to 5 times a day. As of 11/20/2016, the diarrhea is improved. There is been no overt GI bleeding, hematemesis, or melena. It is difficult to tell whether the patient has subjective abdominal pain. Is been no vomiting. The patient passed a swallowing eval on 11/20/2016, & tolerated apple sauce & Ensure. The patient was felt to have ATN from sepsis. She also had volume overload by imaging studies. She is being started on trials of IV Lasix with initiation of dialysis on hold for now. The patient's poor mentation is multifactorial. 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 pylori negative, random biopsies of duodenal sweep- negative. 03/08/2008: [facility] EUS to check gastric fundus (lipoma on above biopsies)- ? results not in office (pre-EMR). 03/10/2008: Baseline colonoscopy to the cecum by myself- (fair prep with TriLyte )- moderate left-sided diverticula with normal mucosa to the cecum. [*A follow- up colonoscopy was considered for 10 years, in 02/2018; however the patient would be of advanced age then, and has sustained numerous comorbidities in the interim]. Allergies/Medications Allergies: Coded Allergies: clonidine (HIVES 02/02/16) Home Med List: Albuterol Sulfate 2.5 MG/3 ML (0.083 %) VIAL.NEB 1 Vial INH/BARBARA 4 TIMES/DAY BREATHING PROBLEMS (Reported) FOR 3 DAYS START 11/14 Allopurinol 100 MG TABLET 0.5 TAB PO DAILY GOUT (Reported) Apixaban (Eliquis) 5 MG TABLET 1 TAB PO BID PE (Reported) Baclofen 10 MG TABLET 0.25 TAB PO BID MUSCLE SPASMS (Reported) Cholecalciferol (Vitamin D3) 1,000 UNIT TABLET 1 TAB PO DAILY SUPPLEMENT ( Reported) Clopidogrel Bisulfate (Clopidogrel) 75 MG TABLET 1 TAB PO DAILY BLOOD THINNER (Reported) Darbepoetin Aldair in Polysorbat (Aranesp) 25 MCG/0.42 ML SYRINGE 1 INJ SC QW ANEMIA (Reported) Ferrous Sulfate 325 MG (65 MG IRON) TABLET 1 TAB PO BID SUPPLEMENT (Reported) Gabapentin 300 MG CAPSULE 1 CAP PO TID UNKNOWN (Reported) Lactobacillus Acidophilus (Acidophilus) 1 EACH CAPSULE 1 CAP PO DAILY GI ( Reported) Levothyroxine Sodium (Synthroid) 50 MCG TABLET 1 TAB PO DAILY AC THYROID ( Reported) Multivitamin (Multiple Vitamins) 1 EACH TABLET 1 TAB PO DAILY SUPPLEMENT ( Reported) Nifedipine (Nifedipine ER) 30 MG TAB.ER.24 1 TAB PO DAILY HBP (Reported) Nitrofurantoin Monohyd/M-Cryst (Nitrofurantoin Tyler-Mcr 100 MG) 100 MG CAPSULE 1 CAP PO BID ANTIBIOTIC, INFECTION (Reported) Past History Travel History Traveled to [place] past 21 day No Medical History Blood Transfusion Hx: Yes Neurological: peripheral neuropathy, TIA, 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 EENT: cataracts (s/p extraction bilaterally) Cardiovascular: diastolic CHF, hypertension, hyperlipidemia, HTN, PE S/P IVC FILTER PLACEMENT DVT s/p IVC filter placement Respiratory: COPD, pulmonary embolism, pneumonia Gastrointestinal: diverticulosis coli Hepatic: NONE Renal: neurogenic bladder, CKI Musculoskeletal: gout Psychiatric: NONE Endocrine: hypothyroidism Blood Disorders: anemia (baseline Hgb 9 range), hemoglobin SC trait 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 Extended Care Facility ([facility]) Who Do You Live With? SNF Services at Home: Nursing ([facility], post CVA) Primary Language: Guatemalan Smoking Status: Never Smoked ETOH Use: denies use Illicit Drug Use: denies illicit drug use Living Will? unknown Power of Resource Protection Specialist/HCP? her daughter Name of POA/HCP: Nichole Other Social History: . Non- smoker. Non-EtOH. No drugs. In SNF since CVA. 2 dtrs, Luz & Alba. Functional Ability ADLs Needs Assist: dressing, eating, toileting, bathing. Ambulation: non-ambulatory IADLs Independent: telephone. Needs Assist: shopping, housework, finances, food prep, transportation, medication admin. Employment History Employment: Retired Profession/Employer: unknown ECHO Results (as available) Date of last Echo 10/26/15 EF% 70 Review of Systems Review of Systems: Full 14 point review of systems currently unobtainable from patient, secondary to altered mental status. Review of Systems All Other Systems: Reviewed and Negative (unobtainable) Exam & Diagnostic Data Vital Signs and I&O Vital Signs Date Time Temp Pulse Resp B/P Pulse O2 O2 Flow FiO2 Ox Delivery Rate 11/20 1521 22.0 103 22 138/60 90 Nasal 6.0L Cannula 11/20 1143 97.4 96 22 144/60 91 Nasal 6.0L Cannula 11/20 0845 98.0 104 22 140/74 90 Nasal 6.0L Cannula 11/20 0800 92 Nasal 6.0L Cannula 11/20 0249 97.8 98 22 142/62 90 Nasal Cannula 11/20 0000 90 Nasal 4.5L Cannula 11/19 2224 98.2 98 22 140/60 90 Nasal 4.5L Cannula Intake & Output 11/20 1600 11/20 0400 11/19 1600 11/19 0400 11/18 1600 11/18 0400 Intake Total 1550 760 320 700 Output Total 50 30 55 75 Balance 1500 -30 705 245 700 Intake, Blood 350 Product Intake, IV 900 640 320 700 Intake, Oral 300 120 0 Number 3 2 3 1 Bowel Movements Output, 50 30 55 75 Drainage Physical Exam: Well-developed, slightly malnourished obese female, disoriented , in no apparent distress. Sclera anicteric. Conjunctiva pink. Oropharynx clear. Dry mucus membranes. There is no adenopathy, thyromegaly, or JVD. No peripheral stigmata of inflammatory bowel disease or chronic liver disease on exam. No CVA tenderness. Lungs: Few scattered crackles bilaterally with decreased breath sounds at the bases. Heart exam: regular rate rhythm, S1 and S2, I/ murmur. Breast & pelvic exams: API. Abdominal exam: hyperactive bowel sounds, soft obese belly, mildly distended, nontender without guarding or rebound. No mass. No definie organomegaly. No fluid shift. No pulsatile mass. Percutaneous cholecystostomy tube in RUQ, draining chocolate-colored liquid with tinge of bright red blood. Repeat digital rectal exam: deferrd ( reportedly dark brown, on Fe, OB+ earlier this admission). Extremities: without cyanosis or clubbing. Trace dependent edema. No palpable cords. Quadriplegic. Distal pulses 2+ bilaterally. DTRs brisk bilaterally. Disoriented x 3. History of sacral decubiti (not examined). Results Pertinent Lab Results: Laboratory Tests 11/20 11/19 0630 0640 Chemistry Sodium (137 - 145 mmol/L) 144 143 Potassium (3.5 - 5.1 mmol/L) 4.8 4.3 Chloride (98 - 107 mmol/L) 111 H 112 H Carbon Dioxide (22 - 30 mmol/L) 19 L 17 L Anion Gap (5 - 16) 13 14 BUN (7 - 17 mg/dL) 58 H 61 H Creatinine (0.5 - 1.0 mg/dL) 3.5 H 3.6 H Estimated GFR (>60 ml/min) 13 L 12 L BUN/Creatinine Ratio (7 - 25 %) 16.6 16.9 Total Bilirubin (0.2 - 1.3 mg/dL) 1.0 Direct Bilirubin (< 0.4 mg/dL) 0.9 H AST (14 - 36 U/L) 27 ALT (9 - 52 U/L) 19 Alkaline Phosphatase (<127 U/L) 88 Total Protein (6.3 - 8.2 g/dL) 5.3 L Albumin (3.5 - 5.0 g/dL) 2.4 L Hematology CBC w Diff MAN DIFF ORDERED MAN DIFF ORDERED WBC (4.8 - 10.8 /CUMM) 34.2 *H 31.7 *H RBC (4.20 - 5.40 /CUMM) 2.90 L 2.88 L Hgb (12.0 - 16.0 G/DL) 7.8 L 7.9 L Hct (37 - 47 %) 24.3 L 24.0 L MCV (81.0 - 99.0 FL) 83.8 83.2 MCH (27.0 - 31.0 PG) 27.0 27.4 RDW (11.5 - 14.5 %) 20.6 H 20.8 H Plt Count (130 - 400 /CUMM) 389 337 MPV (7.4 - 10.4 FL) 8.6 8.1 Segmented Neutrophils (42.2 - 75.2 %) 92 H 96 H Band Neutrophils (0.0 - 5.0 %) 1 Lymphocytes (20.5 - 51.1 %) 3 L 1 L Monocytes (1.7 - 9.3 %) 3 2 Metamyelocytes (0.0 - 1.0 %) 1 1 Nucleated RBCs (0.0 - 0.0 /100WBC) 17 H 18 H Platelet Estimate (ADEQUATE) VERIFIED BY SMEAR VERIFIED BY SMEAR Polychromasia 1+ 1+ Hypochromic-Microcytic 1+ Poikilocytosis 2+ 3+ Anisocytosis 2+ 2+ Target Cells 2+ 2+ Elmo Cells 1+ FEW PUBS MCHC (33.0 - 37.0 G/DL) 32.2 L 32.9 L 11/18 11/18 0830 0620 Chemistry Sodium (137 - 145 mmol/L) 141 Potassium (3.5 - 5.1 mmol/L) 3.5 Chloride (98 - 107 mmol/L) 107 Carbon Dioxide (22 - 30 mmol/L) 21 L Anion Gap (5 - 16) 13 BUN (7 - 17 mg/dL) 63 H Creatinine (0.5 - 1.0 mg/dL) 3.3 H Estimated GFR (>60 ml/min) 13 L BUN/Creatinine Ratio (7 - 25 %) 19.1 Hematology CBC w Diff MAN DIFF ORDERED WBC (4.8 - 10.8 /CUMM) 47.3 *H RBC (4.20 - 5.40 /CUMM) 3.03 L Hgb (12.0 - 16.0 G/DL) 8.3 L Hct (37 - 47 %) 25.3 L MCV (81.0 - 99.0 FL) 83.4 MCH (27.0 - 31.0 PG) 27.2 RDW (11.5 - 14.5 %) 20.7 H Plt Count (130 - 400 /CUMM) 321 MPV (7.4 - 10.4 FL) 9.1 Gran % (42.2 - 75.2 %) 94.8 H Lymphocytes % (20.5 - 51.1 %) 2.1 L Monocytes % (1.7 - 9.3 %) 3.1 Eosinophils % (0 - 5 %) 0 Basophils % (0.0 - 2.0 %) 0 L Absolute Granulocytes (1.4 - 6.5 /CUMM) 44.9 H Segmented Neutrophils (42.2 - 75.2 %) 95 H Band Neutrophils (0.0 - 5.0 %) 3 Absolute Lymphocytes (1.2 - 3.4 /CUMM) 1.0 L Lymphocytes (20.5 - 51.1 %) 2 L Absolute Monocytes (0.10 - 0.60 /CUMM) 1.4 H Absolute Eosinophils (0.0 - 0.7 /CUMM) 0 Absolute Basophils (0.0 - 0.2 /CUMM) 0 Nucleated RBCs (0.0 - 0.0 /100WBC) 3 H Platelet Estimate (ADEQUATE) VERIFIED BY SMEAR Polychromasia 1+ Poikilocytosis 3+ Anisocytosis 2+ Target Cells 2+ Elmo Cells 1+ Schistocytes PUBS MCHC (33.0 - 37.0 G/DL) 32.6 L Imaging/Other Studies: 11/14/2016: EKG- NSR @ 89, normal axis, LVH, NSST laterally. 11/14/16: XR PORTABLE CHEST- Mild streaky bibasilar opacities suggesting atelectasis. Short-term radiographic follow-up would be helpful to exclude developing superimposed consolidation. 11/15/2016: CT ABD & PELVIS W/O IV CONTRAST- 1. Findings suggestive of a right lower lobe pneumonia with associated atelectasis. 2. Cholelithiasis with a hydropic gallbladder with mild inflammatory changes. 3. Mildly distended small bowel loops including a 1 cm appendix with only minimal surrounding soft tissue stranding. Clinical correlation for acute appendicitis. 4. Given the gallbladder appendix and small bowel changes, findings are more likely related to physiologic decreased function related to the patient's clinical status, although surgical consultation should be considered. 5. Mild anasarca. 11/15/2016: HIDA SCAN- Absence of gallbladder activity is consistent with cystic duct obstruction, representing acute cholecystitis. There is normal excretion through the bile duct into the small bowel. 11/17/2016: XRY-PORTABLE CHEST XRAY- Moderate haziness right lung base has increased since 11/13/2016 exam. This is suggestive of pleural effusion with underlying infiltrate or atelectasis. Left lung base retrocardiac opacity may represent underlying effusion/infiltrate or atelectasis. The findings in the right lung has increased since the previous study. Recommend CT chest without contrast for correlation. Cardiomegaly without congestion. Previous CT chest 10/25/2015 revealed bilateral posterior pleural thickening & minimal atelectasis. 11/18/2016: PERCUT BILIARY DRAINANGE; US-GUIDANCE- FINDINGS: 1. Distended gallbladder on ultrasound, with gallstones. 2. Aspiration of dark black bile upon access of gallbladder. 3. Successful placement of an 8.5 Indonesian Brown-Pino cholecystostomy tube. IMPRESSION: Successful placement of an 8.5 Indonesian Brown-Pino cholecystostomy tube. 11/18/2016: CT CHEST WITHOUT CONTRAST- 1. Bilateral pleural effusions larger on the right than left. 2. Compression atelectasis of portions of both lower lobes. Consider early pulmonary edema in the aerated portions of both lungs. 3. Cholelithiasis, status post cholecystostomy tube placement. 4. Calcified pleural plaques. 5. Small volume ascites. Mild anasarca. The findings above could be compatible with CHF. 11/20/2016: CT HEAD WITHOUT CONTRAST- Suboptimal CT examination of the head due to patient motion. No gross evidence for acute intracranial pathology on the motion degraded images. 11/20/2016: CT ABDOMEN AND PELVIS WITHOUT CONTRAST- 1. Percutaneous cholecystostomy catheter is in satisfactory position. 2. Anasarca. Small pleural effusions (right larger left) and compressive atelectasis/consolidation in lower lobes, unchanged compared to 11/18/2016 but worse compared to 11/15/2016 3. No evidence of acute hematoma/hemorrhage within the abdomen or pelvis 4. The finding of the stable 4 x 2 x 4 cm soft tissue mass overlying the distal sacrum requires additional clinical correlation. Assessment/Plan Assessment/Recommendations: 81-year-old female, fci resident at [facility], remotely seen by myself 9 years ago for anemia (OB-neg stool then), with baseline Hgb in the 9 range. She also has sickle cell (Hgb SC), and previously was evaluated by hematology in 2007, at which point, she had a low haptoglobin, but was felt not to be hemolyzing. Her other numerous issues include chronic renal insufficiency, hypertension, hyperlipidemia, hypothyroidism, gout, ? COPD, & quadriplegia x the past 3 years, secondary to a spinal artery occlusion several months after an elective decompressive laminectomy of C3-C7, which had been complicated by PE & recurrent PE, maintained on outpatient Eliquis. According to the chart, she had an IVC filter placed at some point for DVT. The patient was started on outpatient Nitrofurantoin on 11/13/2016 for fever, pyuria , and leukocytosis. She was admitted to [place] the following day, 11/14/2016, after being sent to the ER for further evaluation. She was initially afebrile, but spiked to 100.2 the evening of admission. Admission white count was 34K, Hgb 7.9, with BUN/Cr 92/4.2, TBil 1.3, AST 42 & pyuria with U/A > 75 WBC. Chest x-ray showed streaky bibasilar opacities. She was initially put on Ceftriaxone for possible urosepsis. 11/15/2016: CT AP without contrast- RLL infiltrate, cholelithiasis with hydropic gallbladder and mild inflammatory changes, mildly distended small bowel loops with 1 cm appendix, without significant periappendiceal inflammation, & mild anasarca. 11/15/16: HIDA- no gallbladder visualization consistent with cystic duct obstruction/acute cholecystitis, with normal excretion through the CBD into the small bowel. Although she remained afebrile, WBC 51K on 11/16/16, at which point antibiotics, were switched to Zosyn, to cover the biliary tree and possible UTI, although she was felt to most likely have asymptomatic bacteriuria. The patient has been seen by ID, medicine, surgery, renal, & IR. She ultimately had a 8.5 Fr percutaneous cholecystostomy placed by IR on 2016, she was felt not to be a surgical candidate. The patient remains with multifactorial poor mental status. She has required 2 units PRBC over the course of her hospitalization over the past week. Stools were reportedly dark brown (on Fe), but OB positive. There is chocolate-colored bilious fluid with mild reddish tinge, draining from the percutaneous cholecystostomy tube. Her Eliquis was held 3 days prior to the percutaneous cholecystostomy, and remains on hold for now. 11/18/2016: Cholecystostomy Gram stain- no WBC, no organisms, C&S- neg x 2 days. 11/17/2016: C. difficile- negative. 11/20/2016: C. difficile - pending. She remains with leukocytosis, although overall it has a mostly downward trend since placement of the GB tube. According to the patient's daughters, Luz & Alba, the patient had no previous GI issues except for dysphagia after a tracheostomy 3 years ago, at the time of her spinal artery occlusion, which resolved. She is a vegetarian. 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 The diarrhea resolved, only to recur 2 days ago, described as semi- formed, up to 5 times a day. As of 11/20/2016, the diarrhea is improved. There is been no overt GI bleeding, hematemesis, or melena. It is difficult to tell whether the patient has subjective abdominal pain. Is been no vomiting. The patient passed a swallowing eval on 11/20/2016, & tolerated apple sauce & Ensure. The patient was felt to have ATN from sepsis. She also had volume overload by imaging studies. She is being started on trials of IV Lasix with initiation of dialysis on hold for now. The patient's poor mentation is multifactorial. 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 pylori negative, random biopsies of duodenal sweep- negative. 03/08/2008: [facility] EUS to check gastric fundus (lipoma on above biopsies)- ? results not in office (pre-EMR). 03/10/2008: Baseline colonoscopy to the cecum by myself- (fair prep with TriLyte )- moderate left-sided diverticula with normal mucosa to the cecum. [*A follow- up colonoscopy was considered for 10 years, in 02/2018; however the patient would be of advanced age then, and has sustained numerous comorbidities in the interim]. *The patient's anemia is multifactorial. Her baseline Hgb is in the 9 range. Her EGD/baseline colonoscopy were in the spring, as above. No significant pathology was found then. She does not appear to be having a massive GI bleed. Her O2 sat on 6 L is 90%, and if invasive procedures were performed, she could very well require intubation after sedation. Some of the anemia could be from her hemoglobin SC disease, renal insufficiency, anemia of chronic disease, possible scant hemobilia post drainage, etc., superimposed on a slow GI ooze. 11/20/2016: Repeat CT AP w/o contrast- negative for retroperitoneal bleed. The patient passed a swallowing evaluation 11/20/2016 and is starting to eat. The diarrhea seems to be improving. C. difficile has been negative so far. Her stools are becoming more formed. Most likely, she had antibiotic associated, non-C. difficile diarrhea. I had a long discussion with the patient's 2 daughters, Luz & Eduardo, at the bedside, on 11/20/2016. They are in agreement with me that at present, the risk:benefit ratio does not warrant EGD/colonoscopy. However, they will reconsider this if the patient actively bleeds to the point that it is life-threatening. SUGGEST: Consider empiric PPI. Consider adding probiotic (Florastor). Await repeat C. difficile. Advance diet with aspiration precautions, as per speech swallow guidelines. Supplemental oxygen as needed. Strict I's and O's. Consider checking EPO level. Check CBC daily. Keep Hgb > 7-8 range, keeping in mind Hgb SC disease. Careful attention to effluent from percutaneous cholecystostomy tube. Broad-spectrum antibiotics as per ID. Duration of percutaneous cholecystostomy tube (> 6 weeks for tract to mature & may have to be left in place longer, depending on clinical course, as she is a poor surgical candidate), to be determined by surgery & IR. Please call if further inpatient GI input is needed. A message was left with Dr. Gonzalez regarding the above. Problem List: 1. Anemia 2. Acute cholecystitis 3. Guaiac positive stools 4. Malnutrition 5. Diarrhea 6. Diverticula of colon Copies To: ROSS METZ,AMY Morillo; VIKKI METZ,ADIS Bowser; GUANAKO METZ,ZORA; CARO METZ,CANDE; SHANTANU METZ,REMI Ricci; KENDAL METZ,VAN Merchant Consult Acknowledgment - Thank you for your consult request.
--- NOTE | 2016-11-20 17:17 | CT SCAN REPORT ---
EXAMINATION: CT ABDOMEN AND PELVIS WITHOUT CONTRAST CLINICAL INFORMATION: Elevated white count and decreased hematocrit. Evaluate for retroperitoneal bleed and acute abdominal pathology. COMPARISON: CT of abdomen pelvis from 11/15/2016. TECHNIQUE: Multidetector volumetric imaging was performed from the superior aspect of the liver through the pubic symphysis. Sagittal and coronal reformatted images were obtained on the technologist's workstation. DLP: 542 mGy-cm FINDINGS: LUNG BASES: Cardiomegaly and three-vessel coronary artery atherosclerotic disease. Small pleural effusions (right larger than left). Compressive atelectasis and/or consolidation with air bronchograms and lower lobes have worsened compared to 11/15/2016 but are not appreciably changed compared to the recent chest CT of 11/18/2016. Linear, streaky opacities of subsegmental atelectasis are present within the middle lobe and inferior lingula. LIVER, GALLBLADDER, AND BILIARY TREE: Liver has normal size, contour and attenuation. A pigtail drainage catheter is appropriately positioned within the gallbladder lumen. The gallbladder is hyperdense from iodinated contrast material administered during the recent cholecystostomy tube placement. PANCREAS: Unremarkable. SPLEEN: Again noted are multiple small calcifications of the spleen. ADRENAL GLANDS: Unremarkable. KIDNEYS AND URETERS: Mild bilateral renal cortical atrophy. No nephrolithiasis or hydroureteronephrosis. BLADDER: Urinary bladder is moderately distended and has normal wall thickness. Small amount of gas is present within the bladder lumen, likely from the recent bladder catheterization, and this is decreased compared to 11/15/2016. GASTROINTESTINAL TRACT: Loops of bowel are normal in caliber. There are diverticula of the sigmoid colon without diverticulitis. Appendix is unremarkable. A trace amount of ascitic fluid is present within the abdomen and pelvis. No pneumoperitoneum. ABDOMINAL WALL: Anasarca with extensive subcutaneous tissue edema of the abdominal wall and flanks. No focal, organized fluid collection. LYMPH NODES: No pathologic sized lymph nodes within the abdomen or pelvis. VASCULAR: Atherosclerotic calcification of the abdominal aorta and iliac arteries without aneurysm. The inferior vena cava filter is in satisfactory position below the level of the renal veins. No retroperitoneal hematoma. PELVIC VISCERA: Small calcification is present within the uterine fundus. No significant findings within the uterus or adnexa. Trace amount of free fluid is present within the pelvis. OSSEOUS STRUCTURES: No acute osseous findings. A noncalcified mass located within subcutaneous tissues overlying the dorsal sacrum at the level of the sacrococcygeal junction measures approximately 4 x 2 x 4 cm and is unchanged compared to 11/15/2016. There is no evidence of skin ulceration at this level. Recommend correlation with physical examination and any additional clinical history. Question whether patient had a prior fall and hematoma in this region. No sacral fracture. If there is clinical suspicion for soft tissue tumor, percutaneous needle biopsy may be performed. IMPRESSION: 1. Percutaneous cholecystostomy catheter is in satisfactory position. 2. Anasarca. Small pleural effusions (right larger left) and compressive atelectasis/consolidation in lower lobes, unchanged compared to 11/18/2016 but worse compared to 11/15/2016 3. No evidence of acute hematoma/hemorrhage within the abdomen or pelvis 4. The finding of the stable 4 x 2 x 4 cm soft tissue mass overlying the distal sacrum requires additional clinical correlation.
[2016-11-20 19:57] VITALS: BP 128/68
[2016-11-20 23:09] VITALS: BP 156/91
[2016-11-21] VITALS (7 sets, daily range): BP systolic 100–198; BP diastolic 60–98
--- NOTE | 2016-11-21 01:34 | NUR ---
PATIENT IS DROWSY BUT AROUSABLE. ON 6L OXYGEN VIA NASAL CANNULA NO DISCOMFORT NOTED. DENIES CHEST PAIN. + PULSES [place]A CARE GIVEN. TURNED AND REPOSITIONED. WILL CONTINUE TO MONITOR
--- NOTE | 2016-11-21 03:51 | NUR ---
ROUTINE VITALS CHECK 190/92, P 98, 98.5 ORAL, 92% ON 6LNC WITH RR 24 BUT IRREGULAR WITH SHORT PERIODS OF QUICK, PURSED LIP BREATHING THEN RETURNING TO NORMAL. PT MEDICATED WITH IV TYLENOL @ 0200 FOR MOANING WITH LITTLE EFFECT. ORCHARD WORKER MAKENZIE BROOKS NOTIFIED. ORDER RECEIVED TO GIVE PROCARDIA X 1 NOW. WILL CONTINUE TO MONITOR.
[2016-11-21 07:54] LABS: MEAN CORPUSCULAR HGB 27.4 PG (27.0-31.0); MEAN CORPUSCULAR HGB CONC 32.8 G/DL (33.0-37.0); MEAN CORPUSCULAR VOLUME 83.3 FL (81.0-99.0); PLATELET COUNT 415 /CUMM (130-400); RBC DISTRIBUTION WIDTH 20.3 % (11.5-14.5)
[2016-11-21 08:40] LABS: HEMATOCRIT 31.9 % (37-47); RED BLOOD CELL CT 3.83 /CUMM (4.20-5.40)
--- NOTE | 2016-11-21 08:48 | PN- Housestaff ---
[facility]19: Subjective Follow-up For: Sepsis secondary to acute cholecystitis s/o cholecystotomy tube. LILLIE Complaints: drowsy and unable to communicate. Subjective: Patient is sleepy and drowsy. However daughter reports that she has been a little better than yesterday. She has been speaking in full sentences and has been tolerating liquids well. She received 1 unit of blood transfusion yesterday. CT head done yesterday revealed no acute findings. Cholecystostomy tube is in place draining brownish liquid. Review of Systems Constitutional: Reports: malaise, weakness. EENTM: Reports: no symptoms. Cardiovascular: Reports: no symptoms. Respiratory: Reports: no symptoms. Gastrointestinal: Reports: diarrhea, changes in stool. Genitourinary: Reports: no symptoms. Musculoskeletal: Reports: no symptoms. Skin: Reports: no symptoms. Objective Last 24 Hrs of Vital Signs/I&O Vital Signs Date Time Temp Pulse Resp B/P Pulse O2 O2 Flow FiO2 Ox Delivery Rate 11/21 0714 96.8 98 22 198/98 90 Room Air 11/21 0547 190/92 11/21 0340 98.5 98 24 190/92 92 Nasal 6.0L Cannula 11/20 2309 98.3 101 22 156/91 97 11/20 1957 96.7 94 20 128/68 91 Room Air 11/20 1600 90 Nasal 6.0L Cannula 11/20 1521 22.0 103 22 138/60 90 Nasal 6.0L Cannula 11/20 1143 97.4 96 22 144/60 91 Nasal 6.0L Cannula 11/20 0845 98.0 104 22 140/74 90 Nasal 6.0L Cannula Intake & Output 11/21 1600 11/21 0800 03 0000 Intake Total Output Total 220 Balance -220 Number 1 1 Bowel Movements Output, 20 Drainage Output, Urine 200 Physical Exam General Appearance: Mild Distress, drowsy, sleepy Skin: No Rashes, No Breakdown, No Significant Lesion HEENT: Atraumatic, PERRLA, EOMI Neck: No JVD Lymphatic: Cervical nl Cardiovascular: Regular Rate, Normal S1, Normal S2 Lungs: decreased breath sounds bilaterally and occasional crackles Abdomen: Normal Bowel Sounds, Soft, cholecystostomy tube in the right upper quadrant draining dark brown liquid Neurological: quadriplegic Extremities: No Clubbing, trace bilateral pedal edema Vascular: Normal Pulses Current Medications: Current Medications Sig/Kobi Start time Last Medication Dose Route Stop Time Status Admin Acetaminophen 650 MG Q6P PRN 11/14 1615 AC 11/18 PO 1622 Acetaminophen 1,000 MG Q6P PRN 11/14 1615 AC 11/21 IV 0206 Allopurinol 50 MG DAILY 11/15 1000 AC 11/20 PO 1047 Baclofen 2.5 MG BID 11/14 2200 AC 11/20 PO 1047 Cholecalciferol 1,000 IU DAILY 11/15 1000 AC 11/18 PO 0902 Dextrose/Sodium 1,000 ML Q13H 11/19 1600 DC 11/20 Chloride IV 0627 Ferrous Sulfate 325 MG BID 11/14 2200 AC 11/18 PO 0902 Furosemide 20 MG ONCE ONE 11/20 1530 DC 11/20 IV PUSH 11/20 1531 1836 Furosemide 20 MG ONCE ONE 11/20 1415 DC 11/20 IV PUSH 11/20 1416 1835 Gabapentin 100 MG DAILY 11/14 1600 AC 11/20 PO 1046 Lactobacillus 1 CAP DAILY 11/20 1821 AC 11/20 Acidophilus PO 1850 Lactobacillus 1 CAP DAILY 11/15 1000 AC 11/18 Acidophilus PO 0902 Levothyroxine Sodium 0.05 MG DAILY AC 11/15 0700 AC 11/21 PO 0549 Melatonin 3 MG AT BEDTIME PRN 11/19 1545 AC PO Morphine Sulfate 1 MG Q6-PRN PRN 11/14 1615 AC IV Multivitamins 1 TAB DAILY 11/15 1000 AC 11/18 Therapeutic PO 0902 Nifedipine 30 MG DAILY 11/21 0515 11/21 PO 0547 Omeprazole 40 MG DAILY AC 11/20 0954 11/21 PO 0551 Patient Medication 1 ED .STK-MED ONE 11/20 1323 UT Teaching ED 11/20 1324 Piperacillin Sod/ 2.25 GM Q8H 11/17 0000 DC 11/21 Tazobactam Sod IV 0038 Sodium Chloride 50 ML Potassium Chloride 20 MEQ ONCE ONE 11/21 0830 AC PO 11/21 0831 Last 24 Hrs of Lab/Jun Results Last 24 Hrs of Labs/Mics: Laboratory Tests 11/21/16 0620: Anion Gap 16, Estimated GFR 14 L, BUN/Creatinine Ratio 17.7, CBC w Diff MAN DIFF ORDERED, WBC Pending, RBC Pending, Hgb Pending, Hct Pending, MCV Pending, MCH Pending, RDW Pending, Plt Count Pending, MPV Pending, Segmented Neutrophils Pending, PUBS MCHC Pending 11/20/16 2340: Urinalysis LIGHT H, Urine Color STRAW, Urine Clarity HAZY H, Urine pH 6.0, Ur Specific Bureau 1.020, Urine Protein 100 H, Urine Ketones NEG, Urine Nitrite NEG, Urine Bilirubin NEG, Urine Urobilinogen 0.2, Ur Leukocyte Esterase NEG, Ur Microscopic SEDIMENT EXAMINED, Urine RBC RARE, Urine WBC 1-3 H, Ur Epithelial Cells FEW, Urine Bacteria RARE H, Urine Hemoglobin SMALL H, Urine Glucose NEG Microbiology 11/21 2339 URINE ROUT: Urine Culture - RECD 11/20 2014 STOOL: Clostridium difficile Toxin A & B - RECD Assessment/Plan Assessment: 81 yo female with pmh of HTN, hypothyroidism, HLD, CKD, quadriplegia s/p spinal cord stroke, DVT/PE on eliquis, Renal artery stenosis s/p renal artery stenting, who is a resident at [facility] was brought in with fever and possible UTI. Now status post cholecystectomy tube. 1. Acute cholecystitis status post cholecystostomy tube * s/p cholecystostomy tube day 3. Draining bile 40 mL in the last 8 hours. * Culture results from biliary drainage shows no growth. Previous urine cultures grew Morganella and Providentia. Repeat urine cultures pending * ID consult appreciated * IV zosyn #6 pending repeat urine cultures * Repeat Chest CT showed no evidence of acute hematoma/hemorrhage within the abdomenor pelvis, Percutaneous cholecystostomy catheter in satisfactory position. Small pleural effusions (right larger left) and compressive atelectasis/consolidation in lower lobes, unchanged compared to 11/18/2016 2. Acute kidney injury/ATN from sepsis/anasarca, low albumin * Cr improved to 3.1 this morning * Patient received IV Lasix 40 mg yesterday after the blood transfusion. * IV fluids discontinued * Closely monitor BEP. * Nephrology on board 3. Cholelithiasis with hydropic gallbladder: * s/p cholecystostomy tube placement by IR 1DA with biliary drainage culture, follow up culture. * Bili culture showed no growth * Eliquis and Plavix on hold from 11/15. 4. Acute on chronic anemia : * Received 1 unit of blood transfusion yesterday. H&H pending. * Evaluated by GI yesterday, no plans of acute intervention at this time * Patient continued on Protonix and probiotic * Patient tolerating a liquid diet. * Holding Eliquis and Plavix for anemia and guaiac positive stools 5. Altered mental status/lethargy * CT negative for any acute pathology. 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 c/w baclofen for spasticity & gabapentin 7. Hx of DVT/PE s/p IVC filter: * Holding eliquis and plavix for were positive stools and drop in H&H. 8. Hypothyroidism: * c/w levothyroxine 50mcg daily 9. HTN: Continue Procardia. DVT ppx: po eliquis on hold, ALPS for now, full code. Problem List: 1. Guaiac positive stools 2. Anemia 3. Acute cholecystitis 4. Acute kidney injury 5. Volume overload 6. Chronic kidney disease Pain Ratin Pain Location: Abdomen Pain Goal: Pain 4 or less Pain Plan: po/iv tyrenol IV morphine Tomorrow's Labs & Rationales: CBC: Anemia BEP: LILLIE Consulting Request: Consulting Specialty: Neurology Consulting Physician: Dr. Rodriguez Reason for Consult: LILLIE, metabolic acidosis CANDE ELIZONDO MD 11/21/16 1505: Attending MD Review Statement Attending Statement Attending MD Statement: examined this patient, discuss w/resident/PA/LITERACY COORDINATOR, agreed w/resident/PA/LITERACY COORDINATOR, discussed with family, reviewed EMR data (avail), discussed with nursing, discussed with case mgmt, reviewed images, amended to note Attending Assessment/Plan: The patient was seen and discussed with house staff. More alert today and able to take po better. WBC decreased. Some increased abdominal pain. Remains hypoxic on 4-6 Liters/min nasal. Will restart Eliquis/Plavix. GI input appreciated.
[2016-11-21 09:29] LABS: WHITE BLOOD CELL COUNT 25.5 /CUMM (4.8-10.8)
--- NOTE | 2016-11-21 10:46 | PN- Nephrology ---
Assessment/Plan Assessment: LILLIE - Clinical situation and labs c/w ATN from sepsis. Urine sediment bland ( some WBC's in the setting of UTI). Fortunately creatinine is starting to improve. At this time, although she remains total body volume expanded, her UOP may really start to pick back up. I would not diurese her with the goal of removing all excess fluid (she is hypoalbuminemic which may be contributing), but rather PRN with transfusions or SOB. Anasarca - low albumin - likely negative acute phase reactant and nutritional. Cannot be explained by nephrosis or liver disease (at least based on imaging). Would not be overaggressive about getting this fluid off because it may not be a clear marker of her intravascular volume status. Cholecystitis - s/p Perc will tube UTI - on treatment. Suggestion: -PRN IV lasix 40mg -Cont to monitor daily BMP -No acute need for dialysis Subjective Subjective: Pt noted to be more alert To family had been c/o total body pain SCr down to 3.1; no arciniega (difficult to track UOP) WBC down to 25; afebrile BP now elevated Hg up to 10.5 with 2U PRBC - seen by GI - EGD/scope being deferred; given 20mg IV lasix x2 Objective Vital Signs and I&Os Vital Signs Date Time Temp Pulse Resp B/P Pulse O2 O2 Flow FiO2 Ox Delivery Rate 11/21 1000 96.7 94 18 168/72 92 Nasal 5.0L Cannula 11/21 0845 168/68 11/21 0714 96.8 98 22 198/98 90 Room Air 11/21 0547 190/92 11/21 0340 98.5 98 24 190/92 92 Nasal 6.0L Cannula 11/21 0000 92 Nasal 6.0L Cannula 11/20 2309 98.3 101 22 156/91 97 11/20 1957 96.7 94 20 128/68 91 Room Air 11/20 1600 90 Nasal 6.0L Cannula 11/20 1521 22.0 103 22 138/60 90 Nasal 6.0L Cannula 11/20 1143 97.4 96 22 144/60 91 Nasal 6.0L Cannula Intake & Output 11/21 1600 11/21 0400 11/20 1600 11/20 0400 11/19 1600 11/19 040 Intake Total 550 1550 760 320 Output Total 40 220 50 30 55 75 Balance 510 -220 1500 -30 705 245 Intake, Blood 350 Product Intake, IV 70 900 640 320 Intake, Oral 480 300 120 Number 1 2 3 2 3 Bowel Movements Output, 40 20 50 30 55 75 Drainage Output, Urine 200 Physical Exam: Gen - appearance improved, moaning HEENT - supple CV - RRR Chest - clear anteriorly Abd - soft, nontender Ext - very trace anasarca Neuro - alert and will answer some questions Current Medications: Current Medications Sig/Kobi Start time Last Medication Dose Route Stop Time Status Admin Acetaminophen 650 MG Q6P PRN 11/14 1615 AC 11/18 PO 1622 Acetaminophen 1,000 MG Q6P PRN 11/14 1615 AC 11/21 IV 0854 Allopurinol 50 MG DAILY 11/15 1000 AC 11/20 PO 1047 Baclofen 2.5 MG BID 11/14 2200 AC 11/20 PO 1047 Cholecalciferol 1,000 IU DAILY 11/15 1000 AC 11/18 PO 0902 Dextrose/Sodium 1,000 ML Q13H 11/19 1600 CO 11/20 Chloride IV 0627 Ferrous Sulfate 325 MG BID 11/14 2200 AC 11/18 PO 0902 Furosemide 20 MG ONCE ONE 11/20 1530 DC 11/20 IV PUSH 11/20 1531 1836 Furosemide 20 MG ONCE ONE 11/20 1415 DC 11/20 IV PUSH 11/20 1416 1835 Gabapentin 100 MG DAILY 11/14 1600 AC 11/20 PO 1046 Lactobacillus 1 CAP DAILY 11/20 1821 DC 11/20 Acidophilus PO 1850 Lactobacillus 1 CAP DAILY 11/15 1000 11/18 Acidophilus PO 0902 Levothyroxine Sodium 0.05 MG DAILY AC 11/15 0700 11/21 PO 0549 Melatonin 3 MG AT BEDTIME PRN 11/19 1545 AC PO Morphine Sulfate 1 MG Q6-PRN PRN 11/14 1615 11/21 IV 1023 Multivitamins 1 TAB DAILY 11/15 1000 AC 11/18 Therapeutic PO 0902 Nifedipine 30 MG DAILY 11/21 0515 11/21 PO 0547 Omeprazole 40 MG DAILY AC 11/20 0954 11/21 PO 0551 Patient Medication 1 ED .STK-MED ONE 11/20 1323 DC Teaching ED 11/20 1324 Piperacillin Sod/ 2.25 GM Q8H 11/17 0000 DC 11/21 Tazobactam Sod IV 0038 Sodium Chloride 50 ML Potassium Chloride 20 MEQ ONCE ONE 11/21 829 DC PO 11/21 0831 Results Pertinent Lab Results: Laboratory Tests 11/21 11/20 0620 2340 Chemistry Sodium (137 - 145 mmol/L) 144 Potassium (3.5 - 5.1 mmol/L) 3.7 Chloride (98 - 107 mmol/L) 106 Carbon Dioxide (22 - 30 mmol/L) 22 Anion Gap (5 - 16) 16 BUN (7 - 17 mg/dL) 55 H Creatinine (0.5 - 1.0 mg/dL) 3.1 H Estimated GFR (>60 ml/min) 14 L BUN/Creatinine Ratio (7 - 25 %) 17.7 Hematology CBC w Diff MAN DIFF ORDERED WBC (4.8 - 10.8 /CUMM) 25.5 H RBC (4.20 - 5.40 /CUMM) 3.83 L Hgb (12.0 - 16.0 G/DL) 10.5 L Hct (37 - 47 %) 31.9 L MCV (81.0 - 99.0 FL) 83.3 MCH (27.0 - 31.0 PG) 27.4 RDW (11.5 - 14.5 %) 20.3 H Plt Count (130 - 400 /CUMM) 415 H MPV (7.4 - 10.4 FL) 8.0 Segmented Neutrophils (42.2 - 75.2 %) 90 H Band Neutrophils (0.0 - 5.0 %) 2 Lymphocytes (20.5 - 51.1 %) 4 L Monocytes (1.7 - 9.3 %) 3 Metamyelocytes (0.0 - 1.0 %) 1 Nucleated RBCs (0.0 - 0.0 /100WBC) 23 H Platelet Estimate (ADEQUATE) VERIFIED BY SMEAR Poikilocytosis 2+ Anisocytosis 2+ Target Cells 2+ PUBS MCHC (33.0 - 37.0 G/DL) 32.8 L Urines Urinalysis LIGHT H Urine Color (YEL,AMB,STR) STRAW Urine Clarity (CLEAR) HAZY H Urine pH (5.0 - 8.0) 6.0 Ur Specific Roma (1.001 - 1.035) 1.020 Urine Protein (NEG,<30 MG/DL) 100 H Urine Ketones (NEG) NEG Urine Nitrite (NEG) NEG Urine Bilirubin (NEG) NEG Urine Urobilinogen (0.1 - 1.0 EU/dl) 0.2 Ur Leukocyte Esterase (NEG) NEG Ur Microscopic SEDIMENT EXAMINED Urine RBC (0 - 5 /HPF) RARE Urine WBC (0 - 2 /HPF) 1-3 H Ur Epithelial Cells (NONE,FEW) FEW Urine Bacteria (NEG/NONE) RARE H Urine Hemoglobin (NEG) SMALL H Urine Glucose (N MG/DL) NEG 11/20 11/19 0630 0640 Chemistry Sodium (137 - 145 mmol/L) 144 143 Potassium (3.5 - 5.1 mmol/L) 4.8 4.3 Chloride (98 - 107 mmol/L) 111 H 112 H Carbon Dioxide (22 - 30 mmol/L) 19 L 17 L Anion Gap (5 - 16) 13 14 BUN (7 - 17 mg/dL) 58 H 61 H Creatinine (0.5 - 1.0 mg/dL) 3.5 H 3.6 H Estimated GFR (>60 ml/min) 13 L 12 L BUN/Creatinine Ratio (7 - 25 %) 16.6 16.9 Total Bilirubin (0.2 - 1.3 mg/dL) 1.0 Direct Bilirubin (< 0.4 mg/dL) 0.9 H AST (14 - 36 U/L) 27 ALT (9 - 52 U/L) 19 Alkaline Phosphatase (<127 U/L) 88 Total Protein (6.3 - 8.2 g/dL) 5.3 L Albumin (3.5 - 5.0 g/dL) 2.4 L Hematology CBC w Diff MAN DIFF ORDERED MAN DIFF ORDERED WBC (4.8 - 10.8 /CUMM) 34.2 *H 31.7 *H RBC (4.20 - 5.40 /CUMM) 2.90 L 2.88 L Hgb (12.0 - 16.0 G/DL) 7.8 L 7.9 L Hct (37 - 47 %) 24.3 L 24.0 L MCV (81.0 - 99.0 FL) 83.8 83.2 MCH (27.0 - 31.0 PG) 27.0 27.4 RDW (11.5 - 14.5 %) 20.6 H 20.8 H Plt Count (130 - 400 /CUMM) 389 337 MPV (7.4 - 10.4 FL) 8.6 8.1 Segmented Neutrophils (42.2 - 75.2 %) 92 H 96 H Band Neutrophils (0.0 - 5.0 %) 1 Lymphocytes (20.5 - 51.1 %) 3 L 1 L Monocytes (1.7 - 9.3 %) 3 2 Metamyelocytes (0.0 - 1.0 %) 1 1 Nucleated RBCs (0.0 - 0.0 /100WBC) 17 H 18 H Platelet Estimate (ADEQUATE) VERIFIED BY SMEAR VERIFIED BY SMEAR Polychromasia 1+ 1+ Hypochromic-Microcytic 1+ Poikilocytosis 2+ 3+ Anisocytosis 2+ 2+ Target Cells 2+ 2+ Pollock Cells 1+ FEW PUBS MCHC (33.0 - 37.0 G/DL) 32.2 L 32.9 L Imaging/Other Studies: EXAM TYPE: CAT - CT ABD & PELVIS W/O IV CONTRAS EXAMINATION: CT ABDOMEN AND PELVIS WITHOUT CONTRAST CLINICAL INFORMATION: Elevated white count and decreased hematocrit. Evaluate for retroperitoneal bleed and acute abdominal pathology. COMPARISON: CT of abdomen pelvis from 11/15/2016. TECHNIQUE: Multidetector volumetric imaging was performed from the superior aspect of the liver through the pubic symphysis. Sagittal and coronal reformatted images were obtained on the technologist's workstation. DLP: 542 mGy-cm FINDINGS: LUNG BASES: Cardiomegaly and three-vessel coronary artery atherosclerotic disease. Small pleural effusions (right larger than left). Compressive atelectasis and/or consolidation with air bronchograms and lower lobes have worsened compared to 11/15/2016 but are not appreciably changed compared to the recent chest CT of 11/18/2016. Linear, streaky opacities of subsegmental atelectasis are present within the middle lobe and inferior lingula. LIVER, GALLBLADDER, AND BILIARY TREE: Liver has normal size, contour and attenuation. A pigtail drainage catheter is appropriately positioned within the gallbladder lumen. The gallbladder is hyperdense from iodinated contrast material administered during the recent cholecystostomy tube placement. PANCREAS: Unremarkable. SPLEEN: Again noted are multiple small calcifications of the spleen. ADRENAL GLANDS: Unremarkable. KIDNEYS AND URETERS: Mild bilateral renal cortical atrophy. No nephrolithiasis or hydroureteronephrosis. BLADDER: Urinary bladder is moderately distended and has normal wall thickness. Small amount of gas is present within the bladder lumen, likely from the recent bladder catheterization, and this is decreased compared to 11/15/2016. GASTROINTESTINAL TRACT: Loops of bowel are normal in caliber. There are diverticula of the sigmoid colon without diverticulitis. Appendix is unremarkable. A trace amount of ascitic fluid is present within the abdomen and pelvis. No pneumoperitoneum. ABDOMINAL WALL: Anasarca with extensive subcutaneous tissue edema of the abdominal wall and flanks. No focal, organized fluid collection. LYMPH NODES: No pathologic sized lymph nodes within the abdomen or pelvis. VASCULAR: Atherosclerotic calcification of the abdominal aorta and iliac arteries without aneurysm. The inferior vena cava filter is in satisfactory position below the level of the renal veins. No retroperitoneal hematoma. PELVIC VISCERA: Small calcification is present within the uterine fundus. No significant findings within the uterus or adnexa. Trace amount of free fluid is present within the pelvis. OSSEOUS STRUCTURES: No acute osseous findings. A noncalcified mass located within subcutaneous tissues overlying the dorsal sacrum at the level of the sacrococcygeal junction measures approximately 4 x 2 x 4 cm and is unchanged compared to 11/15/2016. There is no evidence of skin ulceration at this level. Recommend correlation with physical examination and any additional clinical history. Question whether patient had a prior fall and hematoma in this region. No sacral fracture. If there is clinical suspicion for soft tissue tumor, percutaneous needle biopsy may be performed. IMPRESSION: 1. Percutaneous cholecystostomy catheter is in satisfactory position. 2. Anasarca. Small pleural effusions (right larger left) and compressive atelectasis/consolidation in lower lobes, unchanged compared to 11/18/2016 but worse compared to 11/15/2016 3. No evidence of acute hematoma/hemorrhage within the abdomen or pelvis 4. The finding of the stable 4 x 2 x 4 cm soft tissue mass overlying the distal sacrum requires additional clinical correlation. EXAMINATION: CT HEAD WITHOUT CONTRAST CLINICAL INFORMATION: Altered mental status. Lethargy. Evaluate for an acute intracranial pathology. COMPARISON: Head CT from 03/26/2016. TECHNIQUE: Contiguous axial imaging was performed from the skull base to vertex without intravenous administration of contrast. DLP: 551.19 mGy-cm FINDINGS: registered vascular technologist (rvt) reports that patient would not cooperate and was moving her head during the examination. Images were motion degraded and repeated. However, patient continued to move during the test. There is atherosclerotic calcification of the left vertebral artery and carotid siphons. There is physiologic calcification of the right globus pallidus. No gross evidence for acute intracranial hemorrhage or extra-axial fluid collection. Also, no gross evidence for acute major vascular territory infarction. The ventricles have normal size and configuration; no hydrocephalus. There are secretions layering within the sphenoid sinus. The calvarium appears intact and mastoid air cells and middle ear cavities are grossly clear. IMPRESSION: - Suboptimal CT examination of the head due to patient motion. - No gross evidence for acute intracranial pathology on the motion degraded images.
--- NOTE | 2016-11-21 13:11 | PN- General Surgery ---
Subjective Subjective: MORE AWAKE AND ALERT. C/O PAIN BUT CANNOT LOCALIZE. EATING. Review of Systems: UNOBTAINABLE Objective Vital Signs and I&Os Vital Signs Date Time Temp Pulse Resp B/P Pulse O2 O2 Flow FiO2 Ox Delivery Rate 11/21 1129 Nasal 5.0L Cannula 11/21 1000 96.7 94 18 168/72 92 Nasal 5.0L Cannula 11/21 0845 168/68 11/21 0800 93 Nasal 5.0L Cannula 11/21 0714 96.8 98 22 198/98 90 Room Air 11/21 0547 190/92 11/21 0340 98.5 98 24 190/92 92 Nasal 6.0L Cannula 11/21 0000 92 Nasal 6.0L Cannula 11/20 2309 98.3 101 22 156/91 97 11/20 1957 96.7 94 20 128/68 91 Room Air 11/20 1600 90 Nasal 6.0L Cannula 11/20 1521 22.0 103 22 138/60 90 Nasal 6.0L Cannula Intake & Output 11/21 1600 11/21 0800 11/21 0000 11/20 1600 11/20 0800 11/20 0000 Intake Total 550 950 600 Output Total 40 220 40 10 30 Balance 510 -220 910 590 -30 Intake, Blood 350 Product Intake, IV 70 300 600 Intake, Oral 480 300 Number 2 1 3 2 Bowel Movements Output, 40 20 40 10 30 Drainage Output, Urine 200 Physical Exam: GEN; ALERT. NOT ORIENTED. NAD ABD; SOFT. NT. BLOODY BILE IN BAG Current Medications: Current Medications Sig/Kobi Start time Last Medication Dose Route Stop Time Status Admin Acetaminophen 650 MG Q6P PRN 11/14 1615 AC 11/18 PO 1622 Acetaminophen 1,000 MG Q6P PRN 11/14 1615 AC 11/21 IV 0854 Allopurinol 50 MG DAILY 11/15 1000 AC 11/21 PO 1107 Baclofen 2.5 MG BID 11/14 2199 AC 11/21 PO 1106 Cholecalciferol 1,000 IU DAILY 11/15 1000 AC 11/21 PO 1120 Ferrous Sulfate 325 MG BID 11/14 2199 AC 11/21 PO 1106 Furosemide 20 MG ONCE ONE 11/20 1530 DC 11/20 IV PUSH 11/20 1531 1836 Furosemide 20 MG ONCE ONE 11/20 1415 DC 11/20 IV PUSH 11/20 1416 1835 Gabapentin 100 MG DAILY 11/14 1600 AC 11/21 PO 1123 Lactobacillus 1 CAP DAILY 11/20 1821 DC 11/20 Acidophilus PO 1850 Lactobacillus 1 CAP DAILY 11/15 1000 AC 11/21 Acidophilus PO 1107 Levothyroxine Sodium 0.05 MG DAILY AC 11/15 0700 AC 11/21 PO 0549 Melatonin 3 MG AT BEDTIME PRN 11/19 1545 AC PO Morphine Sulfate 1 MG Q4 HRS NEEDED PRN 11/21 1200 AC IV Morphine Sulfate 1 MG ONCE ONE 11/21 1200 DC 11/21 IV 11/21 1201 1214 Morphine Sulfate 1 MG Q6-PRN PRN 11/14 1615 DC 11/21 IV 1023 Multivitamins 1 TAB DAILY 11/15 1000 AC 11/21 Therapeutic PO 1120 Nifedipine 30 MG DAILY 11/21 0515 AC 11/21 PO 0547 Omeprazole 40 MG DAILY AC 11/20 0954 AC 11/21 PO 0551 Patient Medication 1 ED .STK-MED ONE 11/20 1323 MD Teaching ED 11/20 1324 Piperacillin Sod/ 2.25 GM Q8H 11/17 0000 DC 11/21 Tazobactam Sod IV 0038 Sodium Chloride 50 ML Potassium Chloride 20 MEQ ONCE ONE 11/21 0830 DC 11/21 PO 11/21 0831 1107 Results Last 48 Hours of Labs: Laboratory Tests 11/21 11/20 0620 2340 Chemistry Sodium (137 - 145 mmol/L) 144 Potassium (3.5 - 5.1 mmol/L) 3.7 Chloride (98 - 107 mmol/L) 106 Carbon Dioxide (22 - 30 mmol/L) 22 Anion Gap (5 - 16) 16 BUN (7 - 17 mg/dL) 55 H Creatinine (0.5 - 1.0 mg/dL) 3.1 H Estimated GFR (>60 ml/min) 14 L BUN/Creatinine Ratio (7 - 25 %) 17.7 Hematology CBC w Diff MAN DIFF ORDERED WBC (4.8 - 10.8 /CUMM) 25.5 H RBC (4.20 - 5.40 /CUMM) 3.83 L Hgb (12.0 - 16.0 G/DL) 10.5 L Hct (37 - 47 %) 31.9 L MCV (81.0 - 99.0 FL) 83.3 MCH (27.0 - 31.0 PG) 27.4 RDW (11.5 - 14.5 %) 20.3 H Plt Count (130 - 400 /CUMM) 415 H MPV (7.4 - 10.4 FL) 8.0 Segmented Neutrophils (42.2 - 75.2 %) 90 H Band Neutrophils (0.0 - 5.0 %) 2 Lymphocytes (20.5 - 51.1 %) 4 L Monocytes (1.7 - 9.3 %) 3 Metamyelocytes (0.0 - 1.0 %) 1 Nucleated RBCs (0.0 - 0.0 /100WBC) 23 H Platelet Estimate (ADEQUATE) VERIFIED BY SMEAR Poikilocytosis 2+ Anisocytosis 2+ Target Cells 2+ PUBS MCHC (33.0 - 37.0 G/DL) 32.8 L Urines Urinalysis LIGHT H Urine Color (YEL,AMB,STR) STRAW Urine Clarity (CLEAR) HAZY H Urine pH (5.0 - 8.0) 6.0 Ur Specific [place] (1.001 - 1.035) 1.020 Urine Protein (NEG,<30 MG/DL) 100 H Urine Ketones (NEG) NEG Urine Nitrite (NEG) NEG Urine Bilirubin (NEG) NEG Urine Urobilinogen (0.1 - 1.0 EU/dl) 0.2 Ur Leukocyte Esterase (NEG) NEG Ur Microscopic SEDIMENT EXAMINED Urine RBC (0 - 5 /HPF) RARE Urine WBC (0 - 2 /HPF) 1-3 H Ur Epithelial Cells (NONE,FEW) FEW Urine Bacteria (NEG/NONE) RARE H Urine Hemoglobin (NEG) SMALL H Urine Glucose (N MG/DL) NEG 11/20 0630 Chemistry Sodium (137 - 145 mmol/L) 144 Potassium (3.5 - 5.1 mmol/L) 4.8 Chloride (98 - 107 mmol/L) 111 H Carbon Dioxide (22 - 30 mmol/L) 19 L Anion Gap (5 - 16) 13 BUN (7 - 17 mg/dL) 58 H Creatinine (0.5 - 1.0 mg/dL) 3.5 H Estimated GFR (>60 ml/min) 13 L BUN/Creatinine Ratio (7 - 25 %) 16.6 Hematology CBC w Diff MAN DIFF ORDERED WBC (4.8 - 10.8 /CUMM) 34.2 *H RBC (4.20 - 5.40 /CUMM) 2.90 L Hgb (12.0 - 16.0 G/DL) 7.8 L Hct (37 - 47 %) 24.3 L MCV (81.0 - 99.0 FL) 83.8 MCH (27.0 - 31.0 PG) 27.0 RDW (11.5 - 14.5 %) 20.6 H Plt Count (130 - 400 /CUMM) 389 MPV (7.4 - 10.4 FL) 8.6 Segmented Neutrophils (42.2 - 75.2 %) 92 H Band Neutrophils (0.0 - 5.0 %) 1 Lymphocytes (20.5 - 51.1 %) 3 L Monocytes (1.7 - 9.3 %) 3 Metamyelocytes (0.0 - 1.0 %) 1 Nucleated RBCs (0.0 - 0.0 /100WBC) 17 H Platelet Estimate (ADEQUATE) VERIFIED BY SMEAR Polychromasia 1+ Poikilocytosis 2+ Anisocytosis 2+ Target Cells 2+ [place] Cells 1+ PUBS MCHC (33.0 - 37.0 G/DL) 32.2 L Recent Imaging Studies: CT ABD 11/20 SHOWS PERCUTANEOUS CHOLECYSTOSTOMY TUBE IN GOOD POSITION WITHOUT EVIDENCE FOR LEAK. Assessment/Plan Assessment/Plan RESOLVING SEVERE ACUTE CHOLECYSTITIS. F/U OTHER CULTURES. NO FURTHER RECS. PATIENT WILL GO HOME WITH CHOLECYSTOSTOMY TUBE. I CAN MANAGE IT AN OUTPATIENT.
--- NOTE | 2016-11-21 14:22 | PN- Infect Dx ---
Subjective Subjective: Afebrile. She is more awake and conversant. She does not report any complaints. Objective Last 24 Hrs of Vital Signs/I&O Vital Signs Date Time Temp Pulse Resp B/P Pulse O2 O2 Flow FiO2 Ox Delivery Rate 11/21 1129 Nasal 5.0L Cannula 11/21 1000 96.7 94 18 168/72 92 Nasal 5.0L Cannula 11/21 0845 168/68 11/21 0800 93 Nasal 5.0L Cannula 11/21 0714 96.8 98 22 198/98 90 Room Air 11/21 0547 190/92 11/21 0340 98.5 98 24 190/92 92 Nasal 6.0L Cannula 11/21 0000 92 Nasal 6.0L Cannula 11/20 2309 98.3 101 22 156/91 97 11/20 1957 96.7 94 20 128/68 91 Room Air 11/20 1600 90 Nasal 6.0L Cannula 11/20 1521 22.0 103 22 138/60 90 Nasal 6.0L Cannula Intake & Output 11/21 1600 11/21 0800 11/21 0000 Intake Total 550 Output Total 40 220 Balance 510 -220 Intake, IV 70 Intake, Oral 480 Number 2 1 Bowel Movements Output, 40 20 Drainage Output, Urine 200 Physical Exam Other Physical Findings: She remains lethargic but is more alert and responsive Lungs decreased breath sounds bilaterally Heart regular rhythm with no murmur Abdomen distended, nontender with positive bowel sounds; cholecystostomy tube in place with 70 mL output yesterday and 40 mL overnight Extremities no cyanosis, clubbing or edema Results Last 24 Hours of Lab Results: Laboratory Tests 11/21 11/20 0620 2340 Chemistry Sodium (137 - 145 mmol/L) 144 Potassium (3.5 - 5.1 mmol/L) 3.7 Chloride (98 - 107 mmol/L) 106 Carbon Dioxide (22 - 30 mmol/L) 22 Anion Gap (5 - 16) 16 BUN (7 - 17 mg/dL) 55 H Creatinine (0.5 - 1.0 mg/dL) 3.1 H Estimated GFR (>60 ml/min) 14 L BUN/Creatinine Ratio (7 - 25 %) 17.7 Hematology CBC w Diff MAN DIFF ORDERED WBC (4.8 - 10.8 /CUMM) 25.5 H RBC (4.20 - 5.40 /CUMM) 3.83 L Hgb (12.0 - 16.0 G/DL) 10.5 L Hct (37 - 47 %) 31.9 L MCV (81.0 - 99.0 FL) 83.3 MCH (27.0 - 31.0 PG) 27.4 RDW (11.5 - 14.5 %) 20.3 H Plt Count (130 - 400 /CUMM) 415 H MPV (7.4 - 10.4 FL) 8.0 Segmented Neutrophils (42.2 - 75.2 %) 90 H Band Neutrophils (0.0 - 5.0 %) 2 Lymphocytes (20.5 - 51.1 %) 4 L Monocytes (1.7 - 9.3 %) 3 Metamyelocytes (0.0 - 1.0 %) 1 Nucleated RBCs (0.0 - 0.0 /100WBC) 23 H Platelet Estimate (ADEQUATE) VERIFIED BY SMEAR Poikilocytosis 2+ Anisocytosis 2+ Target Cells 2+ PUBS MCHC (33.0 - 37.0 G/DL) 32.8 L Urines Urinalysis LIGHT H Urine Color (YEL,AMB,STR) STRAW Urine Clarity (CLEAR) HAZY H Urine pH (5.0 - 8.0) 6.0 Ur Specific [place] (1.001 - 1.035) 1.020 Urine Protein (NEG,<30 MG/DL) 100 H Urine Ketones (NEG) NEG Urine Nitrite (NEG) NEG Urine Bilirubin (NEG) NEG Urine Urobilinogen (0.1 - 1.0 EU/dl) 0.2 Ur Leukocyte Esterase (NEG) NEG Ur Microscopic SEDIMENT EXAMINED Urine RBC (0 - 5 /HPF) RARE Urine WBC (0 - 2 /HPF) 1-3 H Ur Epithelial Cells (NONE,FEW) FEW Urine Bacteria (NEG/NONE) RARE H Urine Hemoglobin (NEG) SMALL H Urine Glucose (N MG/DL) NEG Last 24 Hours of Jun Results: Bile culture November 18 negative Stool C. difficile November 20 negative Urine culture November 20 pending Recent Imaging Studies: CT of the abdomen and pelvis without contrast November 20 reveals the percutaneous cholecystostomy catheter in satisfactory position; small bilateral pleural effusions, right greater than left, with compressive atelectasis/consolidation in lower lobes; 4 x 2 x 4 cm soft tissue mass overlying the distal sacrum, also noted on the previous CT scan. Assessment/Plan Impression: Somewhat improved, with increased level of alertness and responsiveness today, with temperatures remain normal and white blood cell count continuing to decrease slowly on Zosyn Day 5 for presumed acute cholecystitis now 3 days status post placement of cholecystostomy tube, with culture of bile negative. The repeat CT scan does not demonstrate any new focus of infection, but does reveal a soft tissue mass overlying the distal sacrum, which was apparently seen on the previous CT scan, and which does warrant clinical correlation. Suggestion: 1. Follow recommendations from IR regarding management of the cholecystostomy tube 2. Continue Zosyn
--- NOTE | 2016-11-21 14:35 | NUR ---
NURSING NOTE: PT O2 SAT ON 6LNC 87%. CHACE STEVEN #[id number] AWARE AND CAME TO BEDSIDE, AND RESP AT BEDSIDE. STAT CHEST XRAY ORDERED AND COMPLETED. AWAITING FURTHER ORDERS. WILL CONTINUE TO MONITOR.
--- NOTE | 2016-11-21 14:57 | RADIOLOGY REPORT ---
EXAMINATION: XR PORTABLE CHEST CLINICAL INFORMATION: Shortness of breath COMPARISON: CT chest without contrast 11/18/2016. TECHNIQUE: Portable AP view of the chest was obtained. FINDINGS: There is moderate right and mild left basilar haziness suggestive of effusions with underlying atelectasis. The upper lungs are clear. The heart size is enlarged. Pulmonary vascularity appears normal. No gross bony abnormality seen. IMPRESSION: Lungs are hyperexpanded with moderate right and small left pleural effusion with underlying atelectasis. The upper lungs are clear.
--- NOTE | 2016-11-21 17:45 | NUR ---
NURSING NOTE: PT LETHARGIC UNABLE TO AWAKEN ENOUGH TO SWALLOW PLAVIX AND ELIQUIS. ANNA INGRAM #[id number] AWARE AND CAME TO BEDSIDE. VSS CHARTED. WILL CONTINUE TO MONITOR AND TRY TO GIVE MEDICATION WHEN PT IS MORE AWAKE.
--- NOTE | 2016-11-21 21:02 | Event Note ---
Event Note Event Note: Situation: Eliquis 2.5 MG BID was started on this patient today. Medication ordered at 2.14 pm, however did not reach the floor till late evening. Brief: Ms Kumar was supposed to have been started on her Eliquis 2.5 MG BID. At 5.55 pm, nurse informed me that this patient was due to get Eliquis, however was somnolent at the moment. I went to the patients room to assess her. She was minimally responsive (stable vitals), with her daughter and grandson present in the room. I expalined to them the importance of the medication. They mentioned that the patient was very drowsy due to the fact that she had been awake all night. She was also resting as she had been much more active and oreinted during the course of the day. 6.04 PM I informed the resident of this situation. She then presented to the floor to for us to come up with a solution. We proposed an NG tube, however the patient was on a partial rebreather. We then proposed whether eliquis could be crushed and put in sauce. I inquired with pharmacy, who said this was fine. We spoke to the nurse to suggest this, however, nurse stated that due to the patient condtion (much more tired and drowsy compared to day time) she was not comfortable giving the patient the medication. 6.50 PM. I visited the room again, this time both daughters were present in the room, with grandson, explained that I may need their help, in tyring to wake her up so that she could have her medication. They said they would be happy to help. I informed the nurse to get the medication (she ordered another one from the Pharmacy as the previous one had to be discarded). A/P: 7.30 PM. Signed out to the night team that to ensure once the patient was more alert and oriented, she was to be given the Eliquis at the soonest.
[2016-11-22 02:00] VITALS: BP 108/56
[2016-11-22 07:46] VITALS: BP 120/60
[2016-11-22 08:34] LABS: RED BLOOD CELL CT 3.55 /CUMM (4.20-5.40)
[2016-11-22 08:39] LABS: MEAN CORPUSCULAR HGB 27.5 PG (27.0-31.0); MEAN CORPUSCULAR HGB CONC 32.5 G/DL (33.0-37.0); MEAN CORPUSCULAR VOLUME 84.5 FL (81.0-99.0); MEAN PLATELET VOLUME 7.9 FL (7.4-10.4); PLATELET COUNT 409 /CUMM (130-400); RBC DISTRIBUTION WIDTH 21.1 % (11.5-14.5); WHITE BLOOD CELL COUNT 24.5 /CUMM (4.8-10.8)
--- NOTE | 2016-11-22 09:00 | NUR ---
NURSING NOTE: PT AWAKE AND ALERT, ABLE TO RESPOND TO MOST QUESTIONS APROPRIATELY. PT REMAINS ON 60%PARTAL REBREATHER AT 93%. HAVE BEEN UNABLE TO TAPER OFF O2, TRAVIS STEVEN #[id number] AWARE. WILL CONTINUE TO MONITOR.
--- NOTE | 2016-11-22 09:45 | PN- Housestaff ---
[facility]25: Subjective Follow-up For: Sepsis secondary to acute cholecystitis s/o cholecystotomy tube. Hypoxemic respiratory failure LILLIE Complaints: shortness of breath, discomfort Subjective: Patient continues to be drowsy. Response to commands but fails to answer questions. Appears to be in moderate distress. She was put on a partial rebreather yesterday as she was found to be breathing through her mouth. Received Plavix and Eliquis this morning as nurse was uncomfortable giving her yesterday evening since patient was very drowsy. Lactate level was normal. Review of Systems Constitutional: Reports: malaise, weakness. EENTM: Reports: no symptoms. Cardiovascular: Reports: no symptoms. Respiratory: Reports: short of breath. Gastrointestinal: Reports: abdominal pain. Genitourinary: Reports: no symptoms. Musculoskeletal: Reports: joint pain. Skin: Reports: no symptoms. Objective Last 24 Hrs of Vital Signs/I&O Vital Signs Date Time Temp Pulse Resp B/P Pulse O2 O2 Flow FiO2 Ox Delivery Rate 11/22 0851 93 Part 60% ReBreather 11/22 0746 97.5 90 20 120/60 93 Part ReBreather 11/22 0200 97.8 98 22 108/56 95 Part 60% ReBreather 11/22 0000 Part 60% ReBreather 11/21 2238 97.9 82 20 100/60 95 / 1957 94 Part 60% ReBreather 11/21 1730 97.1 88 22 148/72 94 Part 60% ReBreather 11/21 1600 94 Part 60% ReBreather 11/21 1441 94 Part 60% ReBreather 11/21 1438 98.2 90 24 153/76 87 Nasal 6.0L Cannula 11/21 1129 Nasal 5.0L Cannula 11/21 1000 96.7 94 18 168/72 92 Nasal 5.0L Cannula Intake & Output 11/22 1600 11/22 0800 11/22 0000 Intake Total 240 60 Output Total 50 Balance 190 60 Intake, Oral 240 60 Number 1 2 Bowel Movements Output, 50 Drainage Physical Exam General Appearance: Moderate Distress, drowsy, confused Skin: No Rashes, No Breakdown, cholecystostomy tube in the RUQ HEENT: Atraumatic, PERRLA, EOMI Neck: No JVD Lymphatic: Cervical nl Cardiovascular: Regular Rate, Normal S1, Normal S2 Lungs: DECREASED BREATH SOUNDS BILATERALLY, CRACKLES OCCASIONALLY Abdomen: Normal Bowel Sounds, Soft, CHOLECYSTOSTOMY TUBE IN THE RIGHT UPPER QUADRANT DRAINING REDDISH BROWN LIQUID Neurological: DROWSY, QUADRIPLEGIC Extremities: No Clubbing, No Cyanosis, No Edema, TRACE BILATERAL PEDAL EDEMA Current Medications: Current Medications Sig/Kobi Start time Last Medication Dose Route Stop Time Status Admin Acetaminophen 650 MG Q6P PRN 11/14 1615 AC 11/18 PO 1622 Acetaminophen 1,000 MG Q6P PRN 11/14 1615 AC 11/21 IV 0854 Allopurinol 50 MG DAILY 11/15 1000 AC 11/22 PO 0901 Apixaban 2.5 MG BID 11/21 1414 AC 11/22 PO 0630 Baclofen 2.5 MG BID 11/14 2200 AC 11/22 PO 0859 Cholecalciferol 1,000 IU DAILY 11/15 1000 AC 11/22 PO 0900 Clopidogrel Bisulfate 75 MG DAILY 11/21 1414 AC 11/22 PO 0630 Ferrous Sulfate 325 MG BID 11/14 2200 AC 11/22 PO 0859 Gabapentin 100 MG DAILY 11/14 1600 AC 11/22 PO 0859 Lactobacillus 1 CAP DAILY 11/20 1821 DC 11/20 Acidophilus PO 1850 Lactobacillus 1 CAP DAILY 11/15 1000 AC 11/22 Acidophilus PO 0900 Levothyroxine Sodium 0.05 MG DAILY AC 11/15 0700 AC 11/22 PO 0618 Melatonin 3 MG AT BEDTIME PRN 11/19 1545 AC PO Morphine Sulfate 1 MG Q4 HRS NEEDED PRN 11/21 1200 AC IV Morphine Sulfate 1 MG ONCE ONE 11/21 1200 DC 11/21 IV 11/21 1201 1214 Morphine Sulfate 1 MG Q6-PRN PRN 11/14 1615 DC 11/21 IV 1023 Multivitamins 1 TAB DAILY 11/15 1000 AC 11/22 Therapeutic PO 0900 Nifedipine 30 MG DAILY 11/21 0515 AC 11/21 PO 0547 Omeprazole 40 MG DAILY AC 11/20 0954 AC 11/22 PO 0620 Piperacillin Sod/ 2.25 GM Q8H 11/22 0900 AC Tazobactam Sod IV Sodium Chloride 50 ML Potassium Chloride 20 MEQ ONCE ONE 11/22 0800 DC 11/22 PO 11/22 0801 0858 Last 24 Hrs of Lab/Jun Results Last 24 Hrs of Labs/Mics: Laboratory Tests 11/22/16 0620: Anion Gap 10, Estimated GFR 13 L, BUN/Creatinine Ratio 15.8, CBC w Diff MAN DIFF ORDERED, WBC Pending, RBC Pending, Hgb Pending, Hct Pending, MCV Pending, MCH Pending, RDW Pending, Plt Count Pending, MPV Pending, Segmented Neutrophils Pending, PUBS MCHC Pending 11/21/16 1440: Lactic Acid 1.0 Assessment/Plan Assessment: 81 yo female with pmh of HTN, hypothyroidism, HLD, CKD, quadriplegia s/p spinal cord stroke, DVT/PE on eliquis, Renal artery stenosis s/p renal artery stenting, who is a resident at [facility] was brought in with fever and possible UTI. Now status post cholecystectomy tube. 1. Acute cholecystitis status post cholecystostomy tube * s/p cholecystostomy tube day 4. Draining bile 160 mL mL in the last 24 hours. * Culture results from biliary drainage shows no growth. Previous urine cultures grew Morganella and Providentia. Repeat urine cultures negative so far. * ID consult appreciated * IV zosyn #7 * Repeat Chest CT showed no evidence of acute hematoma/hemorrhage within the abdomenor pelvis, Percutaneous cholecystostomy catheter in satisfactory position. Small pleural effusions (right larger left) and compressive atelectasis/consolidation in lower lobes, unchanged compared to 11/18/2016 2. Acute hypoxic respiratory failure * Patient currently on 60% nonrebreather * Could be secondary to bilateral pleural effusions /atelectasis seen on CT scan versus PE * Chest x-ray done yesterday showed no infiltrate/clear up her lungs. Pleural effusions and underlying atelectasis. * Patient was off Eliquis for a few days due to GI bleed. Eliquis was restarted yesterday but at a subtherapeutic dose of 2.5 mg twice a day due to renal failure. * D-dimer and Doppler ultrasound ordered. No CTA due to renal failure. V/Q scan should be considered. * Pulmonology consult appreciated 3. Acute kidney injury/ATN from sepsis/anasarca, low albumin * Cr 3.3 this morning * 40 IV Lasix when necessary * IV fluids discontinued * Closely monitor BEP. * Nephrology on board 4. Cholelithiasis with hydropic gallbladder: * s/p cholecystostomy tube placement by IR 1DA with biliary drainage culture, follow up culture. * Bili culture showed no growth * Eliquis and Plavix restarted from 11/22/2016 5. Acute on chronic anemia : * Received 1 unit of blood transfusion yesterday. H&H pending. * Evaluated by GI yesterday, no plans of acute intervention at this time * Patient continued on Protonix and probiotic * Patient tolerating a liquid diet. * Holding Eliquis and Plavix for anemia and guaiac positive stools 6. Altered mental status/lethargy * CT negative for any acute pathology. 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 c/w baclofen for spasticity & gabapentin 8. Hx of DVT/PE s/p IVC filter: * Eliquis restarted at supper therapeutic dose of 2.5 twice a day due to renal failure * Doppler lower extremities and d-dimer ordered * We'll consider VQ scan if unrevealing 9. Hypothyroidism: * c/w levothyroxine 50mcg daily 10. HTN: Continue Procardia. DVT ppx: po eliquis on hold, ALPS for now, full code. Problem List: 1. Guaiac positive stools 2. Anemia 3. Acute kidney injury 4. Anasarca 5. Chronic kidney disease Pain Ratin Pain Location: ABDOMEN Pain Goal: Pain 4 or less Pain Plan: po/iv tyrenol IV morphine Tomorrow's Labs & Rationales: CBC: Anemia BEP: LILLIE Consulting Request: Consulting Specialty: Neurology Consulting Physician: Dr. Rodriguez Reason for Consult: LILLIE, metabolic acidosis CANDE ELIZONDO MD 11/22/16 1740: Attending MD Review Statement Attending Statement Attending MD Statement: examined this patient, discuss w/resident/PA/CONTRACT LEAD, agreed w/resident/PA/CONTRACT LEAD, discussed with family, reviewed EMR data (avail), discussed with nursing, discussed with case mgmt, reviewed images, amended to note Attending Assessment/Plan: The patient was seen and discussed with house staff. Agree with transfer to ICU for higher level of care. Patient now on BIPAP. Discussed option of thoracentesis with IR (Dr. Gramajo). The patient had received Eliquis today. Will monitor respiratory status closely and consider thoracentesis in next 1-2 days. The patient is full code as per family.
[2016-11-22 11:00] VITALS: BP 142/54
--- NOTE | 2016-11-22 12:16 | Transfer of Care Summary ---
Hospital Course Course Hospital Course: 81 yo female with pmh of HTN, hypothyroidism, HLD, CKD, quadriplegia s/p spinal cord stroke, DVT/PE on eliquis, Renal artery stenosis s/p renal artery stenting, who is a resident at [facility] was brought in with fever and possible UTI. She was noted to have fever at ECF prior to admission and bloodwork showed a significantly elevated WBC. She had been begun on Macrodantin 100 mg bid for presumed UTI. In the ED, her BP was low and there was a significant elevation in her Creatinine 4.2 (was 2.8 on 11/13 and prior to that 1.1). She denied any chills, dyspnea, cough, abdominal pain, diarrhea, chest pain or other symptoms. Problem list: 1. Sepsis secondary to acute cholecystitis: Initially source of infection was suspected as UTI. She has urinary incontinence/neurogenic bladder at baseline. As her leukocytosis was significantly high, CT abdomen/pelvis was pursued to evaluation other sources of infection as well as urinary obstruction/ pyelonephritis. CT abdomen/pelvis showed hydropic GB and distended appendix. General surgery was consulted, and HIDA scan was done which showed findings of acute cholecystitis. Patient was not a surgical candidate and therefore cholecystostomy tube was recommended. As she was on po eliquis/plavix, these medications were held prior to the procedure. ID consult was appreciated and she was started on IV Zosyn. She had percutaneous cholecystostomy tube on 11/18 by IR. Bili cultures have been negative so far. Urine cultures were positive for morganella morganii, providencia. She is on Zosyn day 7 today. Surgery, ID following. Repeat Chest CT showed no evidence of acute hematoma/hemorrhage within the abdomenor pelvis, Percutaneous cholecystostomy catheter in satisfactory position. Small pleural effusions (right larger left) and compressive atelectasis/consolidation in lower lobes, unchanged compared to 2. Acute hypoxic hypercarbic respiratory failure: Could be secondary to bilateral pleural effusions /atelectasis seen on CT scan. Patient is also been receiving opiates for her abdominal pain post the cholecystostomy tube placement. She has past histories of PE/DVT and was off the anti-coagulation for a few days. Eliquis was restarted today at a subtherapeutic dose of 2.5 mg due to renal failure. Chest x-ray done yesterday showed no infiltrate/clear up her lungs. Patient was initially on nasal cannula then upgraded to 70% nonrebreather. ABG done this morning showed respiratory acidosis 7.24/56/62. Besides patient has been lethargic and drowsy. Therefore Narcan was administered. BiPAP started. * Repeat ABG in 1 hour. * Therapeutic and Diagnostic Thoracentesis over the weekend 2. Acute kidney injury/metabolic acidosis: Likely from ATN secondary to sepsis with FeNa 3%. Patient was given fluids and bicarbonate. Nephrology following the patient. No more fluids at this point is patient is fluid overloaded. Closely monitor BP. Nephrology on board. 3. Cholelithiasis with hydropic gallbladder: CT abdomen/pelvis showed cholelithiasis with mild inflammation and HIDA scan comfirmed acute cholecystitis. s/p cholecystostomy tube placement by IR with biliary drainage culture on 11/18. Bili culture showed no growth. She received 1 dose of Eliquis and Plavix on 11/22/2016 and now they're being held for thoracentesis over the weekend. 4. 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 c/w baclofen for spasticity & gabapentin 5. Hx of DVT/PE s/p IVC filter: Resume Eliquis and Plavix from 11/20 per surgery 6. Hypothyroidism: c/w levothyroxine 50mcg daily 7. HTN: Continue nifedipine. 8. Acute on chronic anemia: Status post 2 units of blood transfusion. Evaluated by GI, no plans of acute intervention at this time.Patient continued on Protonix and probiotic Patient tolerating a liquid diet. Holding Eliquis and Plavix for thoracentesis. 9. Dilated appendix: about 10mm, low clinical suspicion for acute appendicitis per surgery. DVT ppx: resume po eliquis, full code. Discussed the CODE STATUS with family again. Addressed multiple times, patient wants to be full code as she has survived intubations in the past. Assessment/Plan: See above.
--- NOTE | 2016-11-22 12:29 | Cons- Pulmonary ---
General Information and HPI Consulting Request Date of Consult: 11/22/16 Requested By: edwina Reason for Consult: Acute on chronic hypercapnic history failure History of Present Illness: Patient is 81-year-old paralyzed due to cervical spine analysis status post history of pulmonary emboli on Kala Baldwin admitted with sepsis secondary to acute cholecystitis treated with drainage and antibiotics. Initial chest x-ray showed pleural effusions which appear to have increased in size her oxygen requirements have increased and today arterial blood gases revealed acute on chronic hypercapnic respiratory failure. Chest x-ray continues to show sizable bilateral effusions with atelectasis. Patient has received opiates. Extensive discussion with family has indicated intention for intubation if necessary Allergies/Medications Allergies: Coded Allergies: clonidine (HIVES 02/02/16) Home Med List: Albuterol Sulfate 2.5 MG/3 ML (0.083 %) VIAL.NEB 1 Vial INH/BARBARA 4 TIMES/DAY BREATHING PROBLEMS (Reported) FOR 3 DAYS START 11/14 Allopurinol 100 MG TABLET 0.5 TAB PO DAILY GOUT (Reported) Apixaban (Eliquis) 5 MG TABLET 1 TAB PO BID PE (Reported) Baclofen 10 MG TABLET 0.25 TAB PO BID MUSCLE SPASMS (Reported) Cholecalciferol (Vitamin D3) 1,000 UNIT TABLET 1 TAB PO DAILY SUPPLEMENT ( Reported) Clopidogrel Bisulfate (Clopidogrel) 75 MG TABLET 1 TAB PO DAILY BLOOD THINNER (Reported) Darbepoetin Aldair in Polysorbat (Aranesp) 25 MCG/0.42 ML SYRINGE 1 INJ SC QW ANEMIA (Reported) Ferrous Sulfate 325 MG (65 MG IRON) TABLET 1 TAB PO BID SUPPLEMENT (Reported) Gabapentin 300 MG CAPSULE 1 CAP PO TID UNKNOWN (Reported) Lactobacillus Acidophilus (Acidophilus) 1 EACH CAPSULE 1 CAP PO DAILY GI ( Reported) Levothyroxine Sodium (Synthroid) 50 MCG TABLET 1 TAB PO DAILY AC THYROID ( Reported) Multivitamin (Multiple Vitamins) 1 EACH TABLET 1 TAB PO DAILY SUPPLEMENT ( Reported) Nifedipine (Nifedipine ER) 30 MG TAB.ER.24 1 TAB PO DAILY HBP (Reported) Nitrofurantoin Monohyd/M-Cryst (Nitrofurantoin Jenkins-Mcr 100 MG) 100 MG CAPSULE 1 CAP PO BID ANTIBIOTIC, INFECTION (Reported) Review of Systems Review of Systems Constitutional: Denies: chills, fever. Cardiovascular: Denies: chest pain. Respiratory: Reports: short of breath. Past History Travel History Traveled to [place] past 21 day No Medical History Blood Transfusion Hx: Yes Neurological: peripheral neuropathy, TIA, 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 EENT: cataracts (s/p extraction bilaterally) Cardiovascular: diastolic CHF, hypertension, hyperlipidemia, HTN, PE S/P IVC FILTER PLACEMENT DVT s/p IVC filter placement Respiratory: COPD, pulmonary embolism, pneumonia Gastrointestinal: diverticulosis coli Hepatic: NONE Renal: neurogenic bladder, CKI Musculoskeletal: gout Psychiatric: NONE Endocrine: hypothyroidism Blood Disorders: anemia (baseline Hgb 9 range), hemoglobin SC trait Cancer(s): NONE CARDIOLOGY NURSE PRACTITIONER/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 Extended Care Facility ([facility]) Who Do You Live With? SNF Services at Home: Nursing ([facility], post CVA) Primary Language: Honduran Smoking Status: Never Smoked ETOH Use: denies use Illicit Drug Use: denies illicit drug use Living Will? unknown Power of Mechanical Maintenance Engineer/HCP? her daughter Name of POA/HCP: Nichole Other Social History: . Non- smoker. Non-EtOH. No drugs. In SNF since CVA. 2 dtrs, [facility]. Functional Ability ADLs Needs Assist: dressing, eating, toileting, bathing. Ambulation: non-ambulatory IADLs Independent: telephone. Needs Assist: shopping, housework, finances, food prep, transportation, medication admin. Employment History Employment: Retired Profession/Employer: unknown ECHO Results (as available) Date of last Echo 10/26/15 EF% 70 Exam & Diagnostic Data Last 24 Hrs of Vital Signs/I&O Vital Signs Date Time Temp Pulse Resp B/P Pulse O2 O2 Flow FiO2 Ox Delivery Rate 11/22 1138 94 142/54 11/22 0851 93 Part 60% ReBreather 11/22 0746 97.5 90 20 120/60 93 Part ReBreather 11/22 0200 97.8 98 22 108/56 95 Part 60% ReBreather 11/22 0000 Part 60% ReBreather 11/218 97.9 82 20 100/60 95 11/21 1957 94 Part 60% ReBreather 11/21 1730 97.1 88 22 148/72 94 Part 60% ReBreather 11/21 1600 94 Part 60% ReBreather 11/21 1441 94 Part 60% ReBreather 11/21 1438 98.2 90 24 153/76 87 Nasal 6.0L Cannula Intake & Output 11/22 1600 11/22 0800 11/22 0000 Intake Total 240 60 Output Total 50 Balance 190 60 Intake, Oral 240 60 Number 1 2 Bowel Movements Output, 50 Drainage Oxygen saturation 60% 93% exam for chest shows markedly diminished breath sounds there are no wheezes cardiac exam shows regular S1 and S2 without murmurs abdominal exam is slightly tender positive bowel sounds extremities without edema HEENT exam shows pinpoint pupils Last 48 Hrs of Labs/Jun: Laboratory Tests 11/22/16 1020: pH 7.24 *L, pCO2 56 H, pO2 62 L, HCO3 23, ABG O2 Sat (Measured) 91.0 L, P-50 (Temp Corrected) N, Carboxyhemoglobin 0.6 L, O2 Concentration % 60%, Temperature 97.5, O2 Delivery Method PRB, Phlebotomy Draw Site RIGHT RADIAL 11/22/16 0620: Anion Gap 10, Estimated GFR 13 L, BUN/Creatinine Ratio 15.8, CBC w Diff MAN DIFF ORDERED, RBC 3.55 L, MCV 84.5, MCH 27.5, RDW 21.1 H, MPV 7.9, Segmented Neutrophils 75, Band Neutrophils 4, Lymphocytes 7 L, Monocytes 4, Eosinophils 1 , Metamyelocytes 2 H, Myelocytes 7 H, Nucleated RBCs 22 H, Platelet Estimate ADEQUATE, Hypochromic-Microcytic 2+, Poikilocytosis 3+, Anisocytosis 2+, Target Cells 2+, PUBS MCHC 32.5 L 11/21/16 1440: Lactic Acid 1.0 11/21/16 0620: Anion Gap 16, Estimated GFR 14 L, BUN/Creatinine Ratio 17.7, CBC w Diff MAN DIFF ORDERED, RBC 3.83 L, MCV 83.3, MCH 27.4, RDW 20.3 H, MPV 8.0, Segmented Neutrophils 90 H, Band Neutrophils 2, Lymphocytes 4 L, Monocytes 3, Metamyelocytes 1, Nucleated RBCs 23 H, Platelet Estimate VERIFIED BY SMEAR, Poikilocytosis 2+, Anisocytosis 2+, Target Cells 2+, PUBS MCHC 32.8 L 11/20/16 2340: Urinalysis LIGHT H, Urine Color STRAW, Urine Clarity HAZY H, Urine pH 6.0, Ur Specific [place] 1.020, Urine Protein 100 H, Urine Ketones NEG, Urine Nitrite NEG, Urine Bilirubin NEG, Urine Urobilinogen 0.2, Ur Leukocyte Esterase NEG, Ur Microscopic SEDIMENT EXAMINED, Urine RBC RARE, Urine WBC 1-3 H, Ur Epithelial Cells FEW, Urine Bacteria RARE H, Urine Hemoglobin SMALL H, Urine Glucose NEG Microbiology 11/20 2014 STOOL: Clostridium difficile Toxin A & B - COMP Assessment/Plan Impression/Plan: 81-year-old woman with multiple medical problems being conservatively treated for acute cholecystitis has developed acute on chronic hypercapnic history failure secondary to increasing effusions and atelectasis in conjunction with opiate administration. Patient has had a degree of hypercarbia in the past however now has acute kidney injury with renal failure compromising renal compensation for her worsening hypercarbia Recommendations: Begin BiPAP 14 over 4 at a rate of 24 tapering FiO2 as saturations allow. Administer Narcan. Transfer to the ICU. Patient will need diagnostic and therapeutic right-sided thoracentesis once anticoagulation has been held. Primary care team to decide whether heparin bridging while Eloquis on hold .repeat ABGs in 1 hour after BiPAP initiated and Narcan administered extensive family discussion as indicated patient wishes intubation and full code Consult Acknowledgment - Thank you for your consult request.
--- NOTE | 2016-11-22 12:49 | PN- Infect Dx ---
Subjective Subjective: Afebrile. She was noted to have increased respiratory distress, requiring a partial rebreather. She is unable to provide any history but denies any discomfort. Objective Last 24 Hrs of Vital Signs/I&O Vital Signs Date Time Temp Pulse Resp B/P Pulse O2 O2 Flow FiO2 Ox Delivery Rate 11/22 1138 94 142/54 11/22 0851 93 Part 60% ReBreather 11/22 0746 97.5 90 20 120/60 93 Part ReBreather 11/22 0200 97.8 98 22 108/56 95 Part 60% ReBreather 11/22 0000 Part 60% ReBreather 11/21 2238 97.9 82 20 100/60 95 11/21 1957 94 Part 60% ReBreather 11/21 1730 97.1 88 22 148/72 94 Part 60% ReBreather 11/21 1600 94 Part 60% ReBreather 11/21 1441 94 Part 60% ReBreather 11/21 1438 98.2 90 24 153/76 87 Nasal 6.0L Cannula Intake & Output 11/22 1600 11/22 0800 11/22 0000 Intake Total 240 60 Output Total 50 Balance 190 60 Intake, Oral 240 60 Number 1 2 Bowel Movements Output, 50 Drainage Physical Exam Other Physical Findings: She remains lethargic but arousable, in mild respiratory distress Lungs decreased breath sounds bilaterally Heart regular rhythm with no murmur Abdomen distended, nontender, with positive bowel sounds; cholecystostomy tube in place with 70 mL output yesterday and 50 mL overnight Back no presacral swelling or inflammation noted Extremities no cyanosis, clubbing or edema Results Last 24 Hours of Lab Results: Laboratory Tests 11/22 11/22 11/21 1020 0620 1440 Blood Gas pH (7.35 - 7.45 PH) 7.24 *L pCO2 (35 - 45 TORR) 56 H pO2 (80 - 100 TORR) 62 L HCO3 (21 - 28 MEQ/L) 23 ABG O2 Sat (Measured) (>96.0 %) 91.0 L P-50 (Temp Corrected) N Carboxyhemoglobin (1.5 - 5.0 %) 0.6 L O2 Concentration % 60% Temperature (97.0 - 100.0 FARH) 97.5 O2 Delivery Method PRB Chemistry Sodium (137 - 145 mmol/L) 142 Potassium (3.5 - 5.1 mmol/L) 3.6 Chloride (98 - 107 mmol/L) 107 Carbon Dioxide (22 - 30 mmol/L) 25 Anion Gap (5 - 16) 10 BUN (7 - 17 mg/dL) 52 H Creatinine (0.5 - 1.0 mg/dL) 3.3 H Estimated GFR (>60 ml/min) 13 L BUN/Creatinine Ratio (7 - 25 %) 15.8 Lactic Acid (0.7 - 2.1 mmol/L) 1.0 Hematology CBC w Diff MAN DIFF ORDERED WBC (4.8 - 10.8 /CUMM) 24.5 H RBC (4.20 - 5.40 /CUMM) 3.55 L Hgb (12.0 - 16.0 G/DL) 9.8 L Hct (37 - 47 %) 30.0 L MCV (81.0 - 99.0 FL) 84.5 MCH (27.0 - 31.0 PG) 27.5 RDW (11.5 - 14.5 %) 21.1 H Plt Count (130 - 400 /CUMM) 409 H MPV (7.4 - 10.4 FL) 7.9 Segmented Neutrophils (42.2 - 75.2 %) 75 Band Neutrophils (0.0 - 5.0 %) 4 Lymphocytes (20.5 - 51.1 %) 7 L Monocytes (1.7 - 9.3 %) 4 Eosinophils (0 - 5.0 %) 1 Metamyelocytes (0.0 - 1.0 %) 2 H Myelocytes (0 - 0 %) 7 H Nucleated RBCs (0.0 - 0.0 /100WBC) 22 H Platelet Estimate (ADEQUATE) ADEQUATE Hypochromic-Microcytic 2+ Poikilocytosis 3+ Anisocytosis 2+ Target Cells 2+ PUBS MCHC (33.0 - 37.0 G/DL) 32.5 L Miscellaneous Phlebotomy Draw Site RIGHT RADIAL Last 24 Hours of Jun Results: Urine culture November 20 negative Recent Imaging Studies: Chest x-ray November 22 moderate right and small left pleural effusions Assessment/Plan Impression: Overall condition remains poor with worsening respiratory status, for which she is being transferred to the ICU. She remains afebrile but her white blood cell count remains elevated, unchanged from yesterday, possibly related to the fact that she missed several doses of Zosyn yesterday, begun 6 days ago for presumed acute cholecystitis now 4 days status post placement of a cholecystostomy tube, with culture of the bile negative. The significance of the soft tissue mass overlying the distal sacrum seen on the recent CT scan is unclear with no findings noted on exam to correlate with this. The CT scan was otherwise negative for any new intra-abdominal process. Suggestion: 1. Further management of her respiratory status, with possible thoracentesis, per Pulmonary 2. Continue flushing of the cholecystostomy tube per IR 3. Continue Zosyn
--- NOTE | 2016-11-22 12:57 | NUR ---
NURSING NOTE: DUE TO PT'S DELCINING RESP STATUS AND INCREASED NEEDS FOR 02. PT TRANSFERRED TO ICU. PT TRANSFERRED VIA BED BY THIS RN, NURSE CAT OPERATOR, AND DAMIRUPKENNEY STEVEN ON MONITOR AND PORTABLE O2. PT TO BE PLACED ON BIPAP ONCE IN ICU. REPORT GIVEN TO NOAH.
--- NOTE | 2016-11-22 13:00 | NUR ---
Patient arrived to [facility] from 2[facility] at 1230 for respiratory distress. Upon arrival patient was drowsey but easily arousable, unable to answer questions appropriately however speech is clear. She is able to recognize her two daughters that are at the bedside but can not participate in care. Left sided paralaysis hx of CVA- right side is weak- NSR on tele monitor, HR= 80's. SBP: 130-140's, + pulses. Recieved po eliquis this morning at 0600. Placed on Bi-pap at 60% rate of 24, 15/4- Lungs clear and diminished, O2 sats 93-96%. Abdomen is distended and firm with absent bowel sounds- was notified of this finding- Last BM 3/2- RUW T-tube in place with dark green/brown output. NPO at this time. patient is INC per report. +1 Generalized edema is noted- Healed areas of pressure injury are noted to the coccyx and upper back. No s/s of pain currently noted. STAT CXR ordered- ? need to start IVF since pt to be NPO. Daughters at the bedside and updated on POC frequently. Vitals stable. Will continue to closely monitor patient.
--- NOTE | 2016-11-22 14:11 | RADIOLOGY REPORT ---
EXAMINATION: XR PORTABLE CHEST CLINICAL INFORMATION: Respiratory failure, pleural effusions COMPARISON: 11/21/2016 TECHNIQUE: Portable AP view of the chest was obtained. FINDINGS: The lungs are hypoinflated. Small bilateral pleural effusions are redemonstrated, right greater than left and similar to prior with underlying atelectasis versus consolidation. The mid and upper lungs remain well aerated. No evidence of pneumothorax. The cardiomediastinal silhouette is stable. No acute osseous findings are seen. IMPRESSION: Redemonstrated pleural effusions, right greater than left with associated basilar atelectasis versus consolidation, similar to prior.
--- NOTE | 2016-11-22 15:02 | Event Note ---
Event Note Event Note: Spoke with Dr. Baptiste regarding thoracentesis. The patient will most likely get thora eiter tomorrow (Friday) or day after (Friday). She received Eliquis today in eth morning (low dose-2.5mg due to LILLIE), which is why she can not have a procedure today. IV Heprin drip started tonight for anticouagulation. Hold 4 hours prior to the procedure.
--- NOTE | 2016-11-22 15:14 | PN- Nephrology ---
Assessment/Plan Assessment: LILLIE - Clinical situation and labs c/w ATN from sepsis. Urine sediment bland ( some WBC's in the setting of UTI). Creatinine stable. Anasarca - low albumin - likely negative acute phase reactant and nutritional. Cannot be explained by nephrosis or liver disease (at least based on imaging). Hypercarbic respiratory failure - Today's chest x-ray without significant fluid. Would not recommend diuresis. Cholecystitis - s/p Perc will tube UTI - on treatment. Suggestion: -Would avoid bicarbonate unless pH<7.20 despite aggressive ventilation -No clear indication for lasix -No indication for dialysis at this time Subjective Subjective: SCr 3.3 WBC stable at 24; no new positive micro Being transferred to ICU for hypercarbic respiratory failure Objective Vital Signs and I&Os Vital Signs Date Time Temp Pulse Resp B/P Pulse O2 O2 Flow FiO2 Ox Delivery Rate 11/22 1428 92 11/22 1243 90 93 11/22 1230 95 BIPAP 60% 11/22 1138 94 142/54 11/22 1100 97.5 90 22 142/54 93 Part 60% ReBreather 11/22 0851 93 Part 60% ReBreather 11/22 0800 92 Part 60% ReBreather 11/22 0746 97.5 90 20 120/60 93 Part ReBreather 11/22 0200 97.8 98 22 108/56 95 Part 60% ReBreather 11/22 0000 Part 60% ReBreather 11/21 2238 97.9 82 20 100/60 95 /02 1957 94 Part 60% ReBreather 11/21 1730 97.1 88 22 148/72 94 Part 60% ReBreather 11/21 1600 94 Part 60% ReBreather Intake & Output 11/22 1600 11/22 0400 11/21 1600 / 0400 11/20 1600 03/ 0400 Intake Total 657 33 5475 1550 Output Total 50 70 220 50 30 Balance 248 77 6957 -220 1500 -30 Intake, Blood 350 Product Intake, IV 170 900 Intake, Oral 240 60 960 300 Number 1 2 2 2 3 2 Bowel Movements Output, 50 70 20 50 30 Drainage Output, Urine 200 Physical Exam: Gen - ill appearing, less responsive HEENT - supple CV - RRR Chest - clear anteriorly Abd - soft, nontender Ext - no significant edema Neuro - less responsive Current Medications: Current Medications Sig/Kobi Start time Last Medication Dose Route Stop Time Status Admin Acetaminophen 650 MG Q6P PRN 11/14 1615 AC 11/18 PO 1622 Acetaminophen 1,000 MG Q6P PRN 11/14 1615 AC 11/21 IV 0854 Allopurinol 50 MG DAILY 11/15 1000 AC 11/22 PO 0901 Apixaban 2.5 MG BID 11/21 1414 DC 11/22 PO 0630 Baclofen 2.5 MG BID 11/14 2200 AC 11/22 PO 0859 Cholecalciferol 1,000 IU DAILY 11/15 1000 AC 11/22 PO 0900 Clopidogrel Bisulfate 75 MG DAILY 11/21 1414 DC 11/22 PO 0630 Dextrose/Sodium 1,000 ML Q13H 11/22 1430 AC 11/22 Chloride IV 1439 Ferrous Sulfate 325 MG BID 11/14 2200 AC 11/22 PO 0859 Gabapentin 100 MG DAILY 11/14 1600 AC 11/22 PO 0859 Lactobacillus 1 CAP DAILY 11/15 1000 AC 11/22 Acidophilus PO 0900 Levothyroxine Sodium 0.05 MG DAILY AC 11/15 0700 AC 11/22 PO 0618 Melatonin 3 MG AT BEDTIME PRN 11/19 1545 AC PO Morphine Sulfate 1 MG Q4 HRS NEEDED PRN 11/21 1200 AC IV Multivitamins 1 TAB DAILY 11/15 1000 AC 11/22 Therapeutic PO 0900 Naloxone HCl 0.4 MG ONCE ONE 11/22 1230 DC 11/22 IV 11/22 1231 1225 Nifedipine 30 MG DAILY 11/21 0515 AC 11/22 PO 1138 Omeprazole 40 MG DAILY AC 11/20 0954 AC 11/22 PO 0620 Patient Medication 1 ED .STK-MED ONE 11/22 1342 NM Teaching ED 11/22 1343 Piperacillin Sod/ 2.25 GM Q8H 11/22 0900 AC 11/22 Tazobactam Sod IV 1136 Sodium Chloride 50 ML Potassium Chloride 20 MEQ ONCE ONE 11/22 0800 DC 11/22 PO 11/22 0801 0858 Results Pertinent Lab Results: Laboratory Tests 11/22 11/22 1203 1020 Blood Gas pH (7.35 - 7.45 PH) 7.24 *L 7.24 *L pCO2 (35 - 45 TORR) 53 H 56 H pO2 (80 - 100 TORR) 57 L 62 L HCO3 (21 - 28 MEQ/L) 23 23 ABG O2 Sat (Measured) (>96.0 %) 91.0 L 91.0 L P-50 (Temp Corrected) YES N Carboxyhemoglobin (1.5 - 5.0 %) 1.1 L 0.6 L O2 Concentration % 60% 60% Temperature (97.0 - 100.0 FARH) 97.5 97.5 Respiration Rate (BPM) 24 O2 Delivery Method BIPAP PRB Vent Mode ST Expiratory Pressure (CM H2O P) 4 Inspiratory Pressure (CM H2O P) 14 Miscellaneous Phlebotomy Draw Site RIGHT RADIAL RIGHT RADIAL 11/22 11/21 0620 1440 Chemistry Sodium (137 - 145 mmol/L) 142 Potassium (3.5 - 5.1 mmol/L) 3.6 Chloride (98 - 107 mmol/L) 107 Carbon Dioxide (22 - 30 mmol/L) 25 Anion Gap (5 - 16) 10 BUN (7 - 17 mg/dL) 52 H Creatinine (0.5 - 1.0 mg/dL) 3.3 H Estimated GFR (>60 ml/min) 13 L BUN/Creatinine Ratio (7 - 25 %) 15.8 Lactic Acid (0.7 - 2.1 mmol/L) 1.0 Hematology CBC w Diff MAN DIFF ORDERED WBC (4.8 - 10.8 /CUMM) 24.5 H RBC (4.20 - 5.40 /CUMM) 3.55 L Hgb (12.0 - 16.0 G/DL) 9.8 L Hct (37 - 47 %) 30.0 L MCV (81.0 - 99.0 FL) 84.5 MCH (27.0 - 31.0 PG) 27.5 RDW (11.5 - 14.5 %) 21.1 H Plt Count (130 - 400 /CUMM) 409 H MPV (7.4 - 10.4 FL) 7.9 Segmented Neutrophils (42.2 - 75.2 %) 75 Band Neutrophils (0.0 - 5.0 %) 4 Lymphocytes (20.5 - 51.1 %) 7 L Monocytes (1.7 - 9.3 %) 4 Eosinophils (0 - 5.0 %) 1 Metamyelocytes (0.0 - 1.0 %) 2 H Myelocytes (0 - 0 %) 7 H Nucleated RBCs (0.0 - 0.0 /100WBC) 22 H Platelet Estimate (ADEQUATE) ADEQUATE Hypochromic-Microcytic 2+ Poikilocytosis 3+ Anisocytosis 2+ Target Cells 2+ PUBS MCHC (33.0 - 37.0 G/DL) 32.5 L 11/21 11/20 0620 2340 Chemistry Sodium (137 - 145 mmol/L) 144 Potassium (3.5 - 5.1 mmol/L) 3.7 Chloride (98 - 107 mmol/L) 106 Carbon Dioxide (22 - 30 mmol/L) 22 Anion Gap (5 - 16) 16 BUN (7 - 17 mg/dL) 55 H Creatinine (0.5 - 1.0 mg/dL) 3.1 H Estimated GFR (>60 ml/min) 14 L BUN/Creatinine Ratio (7 - 25 %) 17.7 Hematology CBC w Diff MAN DIFF ORDERED WBC (4.8 - 10.8 /CUMM) 25.5 H RBC (4.20 - 5.40 /CUMM) 3.83 L Hgb (12.0 - 16.0 G/DL) 10.5 L Hct (37 - 47 %) 31.9 L MCV (81.0 - 99.0 FL) 83.3 MCH (27.0 - 31.0 PG) 27.4 RDW (11.5 - 14.5 %) 20.3 H Plt Count (130 - 400 /CUMM) 415 H MPV (7.4 - 10.4 FL) 8.0 Segmented Neutrophils (42.2 - 75.2 %) 90 H Band Neutrophils (0.0 - 5.0 %) 2 Lymphocytes (20.5 - 51.1 %) 4 L Monocytes (1.7 - 9.3 %) 3 Metamyelocytes (0.0 - 1.0 %) 1 Nucleated RBCs (0.0 - 0.0 /100WBC) 23 H Platelet Estimate (ADEQUATE) VERIFIED BY SMEAR Poikilocytosis 2+ Anisocytosis 2+ Target Cells 2+ PUBS MCHC (33.0 - 37.0 G/DL) 32.8 L Urines Urinalysis LIGHT H Urine Color (YEL,AMB,STR) STRAW Urine Clarity (CLEAR) HAZY H Urine pH (5.0 - 8.0) 6.0 Ur Specific [place] (1.001 - 1.035) 1.020 Urine Protein (NEG,<30 MG/DL) 100 H Urine Ketones (NEG) NEG Urine Nitrite (NEG) NEG Urine Bilirubin (NEG) NEG Urine Urobilinogen (0.1 - 1.0 EU/dl) 0.2 Ur Leukocyte Esterase (NEG) NEG Ur Microscopic SEDIMENT EXAMINED Urine RBC (0 - 5 /HPF) RARE Urine WBC (0 - 2 /HPF) 1-3 H Ur Epithelial Cells (NONE,FEW) FEW Urine Bacteria (NEG/NONE) RARE H Urine Hemoglobin (NEG) SMALL H Urine Glucose (N MG/DL) NEG 11/20 0630 Chemistry Sodium (137 - 145 mmol/L) 144 Potassium (3.5 - 5.1 mmol/L) 4.8 Chloride (98 - 107 mmol/L) 111 H Carbon Dioxide (22 - 30 mmol/L) 19 L Anion Gap (5 - 16) 13 BUN (7 - 17 mg/dL) 58 H Creatinine (0.5 - 1.0 mg/dL) 3.5 H Estimated GFR (>60 ml/min) 13 L BUN/Creatinine Ratio (7 - 25 %) 16.6 Hematology CBC w Diff MAN DIFF ORDERED WBC (4.8 - 10.8 /CUMM) 34.2 *H RBC (4.20 - 5.40 /CUMM) 2.90 L Hgb (12.0 - 16.0 G/DL) 7.8 L Hct (37 - 47 %) 24.3 L MCV (81.0 - 99.0 FL) 83.8 MCH (27.0 - 31.0 PG) 27.0 RDW (11.5 - 14.5 %) 20.6 H Plt Count (130 - 400 /CUMM) 389 MPV (7.4 - 10.4 FL) 8.6 Segmented Neutrophils (42.2 - 75.2 %) 92 H Band Neutrophils (0.0 - 5.0 %) 1 Lymphocytes (20.5 - 51.1 %) 3 L Monocytes (1.7 - 9.3 %) 3 Metamyelocytes (0.0 - 1.0 %) 1 Nucleated RBCs (0.0 - 0.0 /100WBC) 17 H Platelet Estimate (ADEQUATE) VERIFIED BY SMEAR Polychromasia 1+ Poikilocytosis 2+ Anisocytosis 2+ Target Cells 2+ [place] Cells 1+ PUBS MCHC (33.0 - 37.0 G/DL) 32.2 L Imaging/Other Studies: EXAM TYPE: RAD - XRY-PORTABLE CHEST XRAY EXAMINATION: XR PORTABLE CHEST CLINICAL INFORMATION: Respiratory failure, pleural effusions COMPARISON: 11/21/2016 TECHNIQUE: Portable AP view of the chest was obtained. FINDINGS: The lungs are hypoinflated. Small bilateral pleural effusions are redemonstrated, right greater than left and similar to prior with underlying atelectasis versus consolidation. The mid and upper lungs remain well aerated. No evidence of pneumothorax. The cardiomediastinal silhouette is stable. No acute osseous findings are seen. IMPRESSION: Redemonstrated pleural effusions, right greater than left with associated basilar atelectasis versus consolidation, similar to prior.
--- NOTE | 2016-11-22 15:42 | ULTRASOUND REPORT ---
EXAMINATION: US TRIPLEX LOWER EXTREMITY, BILATERAL CLINICAL INFORMATION: Evaluate for deep vein thrombosis COMPARISON: None TECHNIQUE: Color-flow triplex imaging with spectral analysis and compression Doppler were performed on the bilateral lower extremities. FINDINGS: Respiratory variation, normal compression and augmented flow are noted throughout the bilateral lower extremities. The visualized common femoral vein, superficial femoral vein, profunda femoral vein, popliteal vein and midcalf peroneal and posterior tibial venous segments show no evidence of deep venous thrombosis. There is no Her's cyst. IMPRESSION: There is no sonographic evidence of deep venous thrombosis involving the bilateral lower extremities.
[2016-11-22 16:00] VITALS: BP 130/80
--- NOTE | 2016-11-22 16:12 | NUR ---
SPEECH THERAPY: NEW ORDERS RECEIVED FOLLOWING PT TRANSFER TO ICU / SECONDARY TO WORSENING RESPIRATORY STATUS. PT CURRENTLY ON BiPAP; UNABLE TO BE SEEN FOR SWALLOW EVALUATION. MD TO PLACE NEW ORDERS OVER WEEKEND FOR SWALLOW RE-EVALUATION IF PT'S RESPIRATORY STATUS IMPROVES. D/W RN AND MD; ALL IN AGREEMENT.
--- NOTE | 2016-11-22 19:45 | Cons- Cardiology ---
General Information and HPI Consulting Request Date of Consult: 11/22/16 Requested By: CANDE ELIZONDO MD History of Present Illness: Afshan is an 81 year old female with history of hemoglobin SC trait, renal insufficiency, and severe hypertension. 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 This patient's blood pressure has, in the past, been very difficult to control. Afshan was sent to the ER for evaluation of fever and abdominal discomfort and was noted to have an elevated WBC count and worsening renal function. These finding were due to acute cholecystitis. Her hospital course was complicated by episodes of hypotension and she has a mixed metabolic and respiratory acidosis with low pO2. She was sent to the ICU for worsening respiratory status in the setting of opiod use and the need for Bipap. She denies any chest pain, pressure , tightnesss, shortness of breath or lightheadedness. She does have some minor return of movement on her right side after her spinal stroke but the left side remains completely paralyzed. It may be recalled that this patient was last admitted for respiratory distress initially treated as a pneumonia although it was subsequently discovered that this patient had multiple filling defects consistent with pulmonary emboli. 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 It should be noted that this patient does have an IVC filter that was placed in 2012 for her prior DVT/PE. Prior to her stroke in 2011 when last seen she could engage in activities such as line dancing without symptoms of decompensated CHF. anemia. On a previous visit I was suspicious of renal artery stenosis. I therefore pursued an MRA which was suggestive of this condition. A subsequent renal angiogram showed pruning of the small distal renal cortical vessels, suggestive of longstanding hypertension bilaterally. There was no focal stenosis of the left main renal artery or its proximal branches. There was some mild irregularity of the proximal right renal artery, without high grade stenosis. I felt that the patient's hypertension was related to small vessel renal disease, but not from reversible large vessel renal artery stenosis. The above was likely a result of longstanding hypertension and perhaps her sickle cell disease. Of note is that during this angiogram the splenic artery was not able to be visualized, which was thought to be related to either a previous splenectomy ( which I did not get a history of) or previous sickle cell disease. Afshan has a history of hemoglobin SC disease and renal insufficiency. She was initially seen by me because of a transient episode of severe sharp chest pain radiating to her right shoulder and back. I was not convinced that this discomfort was cardiac in nature, but did risk stratify her with a stress test. echocardiogram showed normal left ventricular size with mild left ventricular hypertrophy, consistent with hypertension. Her overall EF was normal at 60% with some suggestion of impaired LV relaxation. 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 In terms of cardiac valves, the patient demonstrated mild MR, mild TR , and mild aortic regurgitation. Allergies/Medications Allergies: Coded Allergies: clonidine (HIVES 02/02/16) Home Med List: Albuterol Sulfate 2.5 MG/3 ML (0.083 %) VIAL.NEB 1 Vial INH/BARBARA 4 TIMES/DAY BREATHING PROBLEMS (Reported) FOR 3 DAYS START 11/14 Allopurinol 100 MG TABLET 0.5 TAB PO DAILY GOUT (Reported) Apixaban (Eliquis) 5 MG TABLET 1 TAB PO BID PE (Reported) Baclofen 10 MG TABLET 0.25 TAB PO BID MUSCLE SPASMS (Reported) Cholecalciferol (Vitamin D3) 1,000 UNIT TABLET 1 TAB PO DAILY SUPPLEMENT ( Reported) Clopidogrel Bisulfate (Clopidogrel) 75 MG TABLET 1 TAB PO DAILY BLOOD THINNER (Reported) Darbepoetin Aldair in Polysorbat (Aranesp) 25 MCG/0.42 ML SYRINGE 1 INJ SC QW ANEMIA (Reported) Ferrous Sulfate 325 MG (65 MG IRON) TABLET 1 TAB PO BID SUPPLEMENT (Reported) Gabapentin 300 MG CAPSULE 1 CAP PO TID UNKNOWN (Reported) Lactobacillus Acidophilus (Acidophilus) 1 EACH CAPSULE 1 CAP PO DAILY GI ( Reported) Levothyroxine Sodium (Synthroid) 50 MCG TABLET 1 TAB PO DAILY AC THYROID ( Reported) Multivitamin (Multiple Vitamins) 1 EACH TABLET 1 TAB PO DAILY SUPPLEMENT ( Reported) Nifedipine (Nifedipine ER) 30 MG TAB.ER.24 1 TAB PO DAILY HBP (Reported) Nitrofurantoin Monohyd/M-Cryst (Nitrofurantoin [place]-Mcr 100 MG) 100 MG CAPSULE 1 CAP PO BID ANTIBIOTIC, INFECTION (Reported) Past History Travel History Traveled to [place] past 21 day No Medical History Blood Transfusion Hx: Yes Neurological: peripheral neuropathy, TIA, 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 EENT: cataracts (s/p extraction bilaterally) Cardiovascular: diastolic CHF, hypertension, hyperlipidemia, HTN, PE S/P IVC FILTER PLACEMENT DVT s/p IVC filter placement Respiratory: COPD, pulmonary embolism, pneumonia Gastrointestinal: diverticulosis coli Hepatic: NONE Renal: neurogenic bladder, CKI Musculoskeletal: gout Psychiatric: NONE Endocrine: hypothyroidism Blood Disorders: anemia (baseline Hgb 9 range), hemoglobin SC trait Cancer(s): NONE 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 Extended Care Facility ([facility] Who Do You Live With? SNF Services at Home: Nursing ([facility], post CVA) Primary Language: Martiniquais Smoking Status: Never Smoked ETOH Use: denies use Illicit Drug Use: denies illicit drug use Living Will? unknown Power of Tab Builder/HCP? her daughter Name of POA/HCP: Nichole Other Social History: . Non- smoker. Non-EtOH. No drugs. In SNF since CVA. 2 dtrs, [facility]. Functional Ability ADLs Needs Assist: dressing, eating, toileting, bathing. Ambulation: non-ambulatory IADLs Independent: telephone. Needs Assist: shopping, housework, finances, food prep, transportation, medication admin. Employment History Employment: Retired Profession/Employer unknown ECHO Results (as available) Date of last Echo 10/26/15 EF% 70 Exam & Diagnostic Data Vital Signs and I&O Vital Signs Date Time Temp Pulse Resp B/P Pulse O2 O2 Flow FiO2 Ox Delivery Rate 11/22 1701 78 96 11/22 1600 98 BIPAP 50% 11/22 1600 96.6 74 26 130/80 96 BIPAP 60% 11/22 1428 92 11/22 1243 90 93 11/22 1230 95 BIPAP 60% 11/22 1138 94 142/54 11/22 1100 97.5 90 22 142/54 93 Part 60% ReBreather 11/22 0851 93 Part 60% ReBreather 11/22 0800 92 Part 60% ReBreather 11/22 0746 97.5 90 20 120/60 93 Part ReBreather 11/22 0200 97.8 98 22 108/56 95 Part 60% ReBreather 11/22 0000 Part 60% ReBreather 11/21 2237 97.9 82 20 100/60 95 11/21 1957 94 Part 60% ReBreather Intake & Output 11/22 1600 11/22 0811/22 0000 11/21 1600 11/21 0800 11/21 0000 Intake Total 240 60 580 550 Output Total 100 50 30 40 220 Balance -100 190 60 550 510 -220 Intake, IV 100 70 Intake, Oral 240 60 480 480 Number 1 2 1 2 1 Bowel Movements Output, 50 30 40 20 Drainage Output, Other 100 Output, Urine 200 Physical Exam: General: WD/ WN female in NAD; awake and responsive Neck: no JVD Heart: RRR w/o murmur Lungs: clear anteriorly Abdomen: soft, NT, +ve bowel sounds Extremities: no edema Assessment/Plan Assessment/Plan * This patient has bilateral pleural effusions consistent with CHF. She also has some degree of ascites and is known to have severe pulmonary hypertension. She may be very pre-load dependent and in the setting of diuresis has worsening renal funciton. I would begin a dobutamine drip at 5mcg/kg/min. Repeat an echocardiogram. * Following thoracentesis this patient should again be on chronic anticoagulation * Check TSH and free T4. Consult Acknowledgment - Thank you for your consult request.
[2016-11-22 20:00] VITALS: BP 128/72
[2016-11-23] VITALS: BP 118/50
[2016-11-23 01:18] LABS: PTT > 120 SEC (25-37)
--- NOTE | 2016-11-23 02:39 | NUR ---
@0015 PT RECTAL TEMP 93.2 NOTIFIED MD REYES #[phone], INSTRUCTED TO START BEAR HUGGER. @0200 RECHECKED RECTAL TEMP 94.3, SCANT BLOOD NOTED ON THERMOMETER, WIPED RECTAL AREA AND SMALL AMOUNT OF BLOOD ON WIPE. PT IS ON HEPARIN DRIP AND LAST PTT WAS >120. NOTIFIED MD HEIDY REYES OF ABOVE. WILL CHECK AXILLARY FOR NOW AND CONTINUE TO MONITOR BLEEDING.
[2016-11-23 05:30] LABS: PT 13.7 SEC (9.4-12.5)
[2016-11-23 05:42] LABS: HEMATOCRIT 28.6 % (37-47); MEAN CORPUSCULAR HGB 27.8 PG (27.0-31.0); MEAN PLATELET VOLUME 8.6 FL (7.4-10.4); PLATELET COUNT 363 /CUMM (130-400); RBC DISTRIBUTION WIDTH 21.7 % (11.5-14.5)
[2016-11-23 06:00] LABS: WHITE BLOOD CELL COUNT 24.1 /CUMM (4.8-10.8)
[2016-11-23 08:00] VITALS: BP 140/63
--- NOTE | 2016-11-23 08:19 | PN- Resident CRCU ---
GLENNA METZ,IMGE 11/23/16 0819: Subjective HPI/CRCU Issues: No acute events overnight. Patient remained afebrile and hemodynamically stable on IV dobutamine drip. She was seen and examined this morning. She was lethargic but arousable. Her oxygenation requirements had improved and she was able to come off BiPAP later in the day and weaned to 4 L NC. Her mental status improved as well and she become more awake and alert. She passed swallow evaluation and was started on oral diet. Later in the evening she had a bloody bowel movement. IV heparin was discontinued however she was noted to have blood oozing from her rectum by nursing staff 2 hours later. Objective Vital Signs & I&O Last 8 Hrs of Vitals and I&O: Vital Signs Date Time Temp Pulse Resp B/P Pulse O2 O2 Flow FiO2 Ox Delivery Rate 11/23 2000 90 Nasal 4.0L Cannula / 1608 97.9 106 19 142/64 92 Nasal 4.0L Cannula / 1600 93 Nasal 4.0L Cannula / 1158 97 Nasal 4.0L Cannula / 1058 105 94 03/04 0831 103 94 03/04 0800 92 BIPAP 40% /04 0800 98.0 92 30 140/63 92 BIPAP 40% /04 0547 103 92 03/04 0400 92 BIPAP 40% 03/04 0253 89 90 03/04 0033 88 93 03/04 0000 92 BIPAP 40% 03/04 0000 93.2 96 28 118/50 92 BIPAP 40% /03 2251 91 95 Intake & Output 11/23 1600 Intake Total 379.4 Output Total Balance 379.4 Intake, IV 379.4 Intake, Oral 0 Exam General Appearance: lethargic, arousable Head: atraumatic, normal appearance Respiratory: decreased breath sounds Cardiovascular: regular rate/rhythm, normal S1 and S2, no murmurs, rubs or gallops Gastrointestinal: soft, non-tender, positive bowel sounds, cholecystostomy in place at RUQ Extremities: trace edema on bilateral lower extremities Current Medications: Current Medications Sig/Kobi Start time Last Medication Dose Route Stop Time Status Admin Acetaminophen 650 MG Q6P PRN 11/14 1615 AC /04 PO 1520 Acetaminophen 1,000 MG Q6P PRN 11/14 1615 AC 11/21 IV 0854 Albuterol Sulfate 3 ML EVERY 4 HRS/AWAKE 11/23 1200 CAN INH Allopurinol 50 MG DAILY 11/15 1000 AC 11/23 PO 0916 Baclofen 2.5 MG BID 11/14 2200 AC 11/23 PO 2121 Cholecalciferol 1,000 IU DAILY 11/15 1000 AC 11/22 PO 0900 Dextrose/Sodium 1,000 ML Q13H 11/22 1430 DC 11/22 Chloride IV 1439 Dobutamine HCl 250 MG Q13H 11/23 1000 AC 11/23 Dextrose/Water 250 ML IV 1109 Dobutamine HCl 250 MG Q24H 11/22 2100 DC 11/22 Dextrose/Water 250 ML IV 2143 Ferrous Sulfate 325 MG BID 11/14 2200 AC 11/23 PO 212 Gabapentin 100 MG DAILY 11/14 1600 AC 11/23 PO 0916 Heparin Sodium 25,000 UNIT Q24H 11/22 1800 DC 11/22 (Porcine) IV 1802 Sodium Chloride 500 ML Ipratropium [place] 2.5 ML EVERY 4 HRS/AWAKE 11/23 1200 CAN INH Lactobacillus 1 CAP DAILY 11/15 1000 AC 11/22 Acidophilus PO 0900 Levothyroxine Sodium 0.05 MG DAILY AC 11/15 0700 AC 11/22 PO 0618 Magnesium Sulfate 1 GM Q2H 11/22 1900 DC 11/22 Dextrose/Water 100 ML IV 11/23 0052001 Melatonin 3 MG AT BEDTIME PRN 11/19 1545 AC PO Morphine Sulfate 1 MG Q4 HRS NEEDED PRN 11/21 1200 AC IV Multivitamins 1 TAB DAILY 11/15 1000 AC 11/22 Therapeutic PO 0900 Nifedipine 30 MG DAILY 11/21 0515 AC 11/23 PO 0916 Omeprazole 40 MG DAILY AC 11/20 0954 AC 11/22 PO 0620 Piperacillin Sod/ 2.25 GM Q8H 11/23 1130 AC 11/23 Tazobactam Sod IV 1835 Sodium Chloride 50 ML Piperacillin Sod/ 2.25 GM Q8H 11/22 0900 DC 11/23 Tazobactam Sod IV 0323 Sodium Chloride 50 ML Potassium Chloride 10 MEQ Q1H 11/23 0645 DC 11/23 IV 11/23 0746 0806 Results Results: Laboratory Tests 11/23 1530 Coagulation APTT (25 - 37 SEC) > 120 *H Hematology CBC w Diff MAN DIFF ORDERED WBC (4.8 - 10.8 /CUMM) 23.2 H RBC (4.20 - 5.40 /CUMM) 3.15 L Hgb (12.0 - 16.0 G/DL) 8.7 L Hct (37 - 47 %) 26.4 L MCV (81.0 - 99.0 FL) 83.8 MCH (27.0 - 31.0 PG) 27.5 RDW (11.5 - 14.5 %) 21.0 H Plt Count (130 - 400 /CUMM) 340 MPV (7.4 - 10.4 FL) 7.9 Segmented Neutrophils (42.2 - 75.2 %) Pending PUBS MCHC (33.0 - 37.0 G/DL) 32.9 L 11/23 11/23 11/23 1445 1000 0817 Blood Gas pH (7.35 - 7.45 PH) 7.37 7.40 pCO2 (35 - 45 TORR) 36 34 L pO2 (80 - 100 TORR) 58 L 63 L HCO3 (21 - 28 MEQ/L) 21 21 ABG O2 Sat (Measured) (>96.0 %) 89.0 L 92.0 L P-50 (Temp Corrected) N N Carboxyhemoglobin (1.5 - 5.0 %) 0.4 L 0.1 L O2 Concentration % 4LPM 40% Respiration Rate (BPM) 28 O2 Delivery Method NC BIPAP Vent Mode ST Expiratory Pressure (CM H2O P) 6 Inspiratory Pressure (CM H2O P) 16 Coagulation APTT (25 - 37 SEC) > 120 *H Miscellaneous Phlebotomy Draw Site RIGHT RADIAL RIGHT BRACHIAL 11/23 11/23 0422 0022 Chemistry Sodium (137 - 145 mmol/L) 139 Potassium (3.5 - 5.1 mmol/L) 3.5 Chloride (98 - 107 mmol/L) 107 Carbon Dioxide (22 - 30 mmol/L) 19 L Anion Gap (5 - 16) 14 BUN (7 - 17 mg/dL) 53 H Creatinine (0.5 - 1.0 mg/dL) 3.1 H Estimated GFR (>60 ml/min) 14 L Glucose (65 - 99 mg/dL) 89 Calcium (8.4 - 10.2 mg/dL) 9.5 Phosphorus (2.5 - 4.5 mg/dL) 4.0 Magnesium (1.6 - 2.3 mg/dL) 2.2 Total Bilirubin (0.2 - 1.3 mg/dL) 0.7 AST (14 - 36 U/L) 44 H ALT (9 - 52 U/L) 24 Albumin (3.5 - 5.0 g/dL) 2.5 L Coagulation PT (9.4 - 12.5 SEC) 13.7 H INR (0.90 - 1.19) 1.31 H APTT (25 - 37 SEC) > 120 *H Hematology CBC w Diff MAN DIFF ORDERED WBC (4.8 - 10.8 /CUMM) 24.1 H RBC (4.20 - 5.40 /CUMM) 3.40 L Hgb (12.0 - 16.0 G/DL) 9.4 L Hct (37 - 47 %) 28.6 L MCV (81.0 - 99.0 FL) 84.0 MCH (27.0 - 31.0 PG) 27.8 RDW (11.5 - 14.5 %) 21.7 H Plt Count (130 - 400 /CUMM) 363 MPV (7.4 - 10.4 FL) 8.6 Segmented Neutrophils (42.2 - 75.2 %) 86 H Band Neutrophils (0.0 - 5.0 %) 4 Lymphocytes (20.5 - 51.1 %) 1 L Monocytes (1.7 - 9.3 %) 7 Metamyelocytes (0.0 - 1.0 %) 2 H Nucleated RBCs (0.0 - 0.0 /100WBC) 29 H Platelet Estimate (ADEQUATE) ADEQUATE Polychromasia 1+ Hypochromic-Microcytic 1+ Poikilocytosis 2+ Target Cells 1+ Ovalocytes 1+ [place] Cells RARE Elliptocytes FEW Schistocytes RARE PUBS MCHC (33.0 - 37.0 G/DL) 33.0 Other Body Source Fld Total RBCs Counted (%) 100 Impression/Plan Impression/Problem List Impression: 81 y/o F with PMHx of spinal cord stroke c/b quadriplegia, DVT and PE on Eliquis , renal artery stenosis s/p stent placement, hemoglobin SC trait, severe HTN and CKD who presented with acute cholecystitis s/p cholecystectomy with a hospital course complicated by acute hypoxemic and hypercarbic respiratory failure, LILLIE and ABLA. Problem List: 1. Acute blood loss anemia 2. Acute hypoxemic respiratory failure 3. Bright red blood per rectum 4. Pulmonary hypertension, moderate to severe 5. Hypothyroidism 6. Acute cholecystitis 7. Acute kidney injury 8. Acute diastolic CHF (congestive heart failure) Pain Ratin Tomorrow's Labs & Rationales: CBC and ICU bundle (ICU patient) Plan Respiratory: #Acute hypoxemic and hypercapnic respiratory failure: Respiratory status has improved with BiPAP and IV dobutamine drip. ABG 7.40/34/63/21 this morning with improved respiratory acidosis compared to yesterday's ABG 7.24/53/57/23. BiPAP was discontinued and repeat ABG remained stable. * Continue to provide supplemental oxygen as needed to keep SpO2 > 92%. * Plan for diagnostic and therapeutic thoracentesis on Friday (11/25/2016). Infectious Diseases: #Presumed acute cholecystitis: S/p cholecystostomy tube placement. Remains afebrile but with persistent leukocytosis on day 7 of Zosyn. Bile cultures are negative. Repeat CT Abdomen Pelvis (11/20/16) negative for any other intraabdominal process. * ID following. Appreciate their recs. * Continue Zosyn 2.25 g IV Q8H. Cardiovascular: #Acute diastolic CHF: CXR with bilateral pleural effusions consistent with CHF. Patient is very pre-load dependent given her history of severe pulmonary HTN. * Cardiology following. Appreciate their recs. * Continue IV dobutamine drip on increase contractility. * Repeat ECHO pending. #Severe HTN: History of uncontrolled HTN. * Continue prior to admission nifedipine 30 mg PO daily. Hematology: #ABLA: Episode of BRBPR accompanied by drop in H/H from 9.4/28.6 this AM to 8.7/ 26.4. Heparin IV discontinued. * Monitor off IV heparin. * Continue to monitor H/H and transfuse as needed to keep Hgb > 7. #Prior DVT/pulmonary emboli: S/p IVC filter placement in 2012. On Eliquis as outpatient. * IV heparin discontinued in the setting of BRBPR. Metabolic: #LILLIE: Likely presents ATN secondary to sepsis. Cr stable at 3.1. * Nephrology following. Appreciate their recs. * Avoid bicarbonate unless pH < 7.20 despite aggressive ventilation. * No indication for Lasix or dialysis at this time. * Continue to monitor lytes and kidney function. #Hypothyroidism: * Continue prior to admission 50 mcg PO daily. Alimentary: Heart Healthy Diet - Mechanical soft/ground and thin liquids Neurological: Improving. More awake and alert today. DVT/Prophylaxis: mechanical Code Status: Full Code JENNIFER METZ,EDWINKIRSTEN 11/23/166: Attending MD Review Statement Attending Sign Off Attending Cosign Statement: I have: discussd w/resident/PA/[employer] KEY HOLDER, agreed w/resident/PA/[employer] KEY HOLDER. 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 Patient stable today, doing well. Plan is to continue heparin drip, thoracentesis on Friday, continue Zosyn, follow ID, pulmonary, cardiology recommendations.
--- NOTE | 2016-11-23 09:36 | PN- Pulmonary ---
Subjective HPI/Critical Care Issues: Patient is mildly lethargic she remains on BiPAP she is hemodynamically stable and has been started on dobutamine and output is accurate due to incontinence now on heparin pending thoracentesis her oxygen requirements have improved Objective Current Medications: Current Medications Sig/Kobi Start time Last Medication Dose Route Stop Time Status Admin Acetaminophen 650 MG Q6P PRN 11/14 1615 AC 11/18 PO 1622 Acetaminophen 1,000 MG Q6P PRN 11/14 1615 AC 11/21 IV 0854 Allopurinol 50 MG DAILY 11/15 1000 AC 11/22 PO 0901 Apixaban 2.5 MG BID 11/21 1414 DC 11/22 PO 0630 Baclofen 2.5 MG BID 11/14 2200 AC 11/22 PO 0859 Cholecalciferol 1,000 IU DAILY 11/15 1000 AC 11/22 PO 0900 Clopidogrel Bisulfate 75 MG DAILY 11/21 1414 DC 11/22 PO 0630 Dextrose/Sodium 1,000 ML Q13H 11/22 1430 DC 11/22 Chloride IV 1439 Dobutamine HCl 250 MG Q13H 11/23 1000 AC Dextrose/Water 250 ML IV Dobutamine HCl 250 MG Q24H 11/22 2100 DC 11/22 Dextrose/Water 250 ML IV 2143 Ferrous Sulfate 325 MG BID 11/14 2200 AC 11/22 PO 0859 Gabapentin 100 MG DAILY 11/14 1600 AC 11/22 PO 0859 Heparin Sodium 25,000 UNIT Q24H 11/22 2300 DC (Porcine) IV Sodium Chloride 500 ML Heparin Sodium 25,000 UNIT Q24H 11/22 1800 AC 11/22 (Porcine) IV 1802 Sodium Chloride 500 ML Lactobacillus 1 CAP DAILY 11/15 1000 AC 11/22 Acidophilus PO 0900 Levothyroxine Sodium 0.05 MG DAILY AC 11/15 0700 AC 11/22 PO 0618 Magnesium Sulfate 1 GM ONCE ONE 11/22 1900 DC 11/22 Dextrose/Water 100 ML IV 11/22 2259 1855 Magnesium Sulfate 1 GM Q2H 11/22 1900 DC 11/22 Dextrose/Water 100 ML IV 11/23 0059 2002 Magnesium Sulfate 1 GM ONCE ONE 11/22 1900 CAN Dextrose/Water 100 ML IV 11/22 2259 Melatonin 3 MG AT BEDTIME PRN 11/19 1545 AC PO Morphine Sulfate 1 MG Q4 HRS NEEDED PRN 11/21 1200 AC IV Multivitamins 1 TAB DAILY 11/15 1000 AC 11/22 Therapeutic PO 0900 Naloxone HCl 0.4 MG ONCE ONE 11/22 1230 DC 11/22 IV 11/22 1231 1225 Nifedipine 30 MG DAILY 11/21 0515 AC 11/22 PO 1138 Omeprazole 40 MG DAILY AC 11/20 0954 AC 11/22 PO 0620 Patient Medication 1 ED .STK-MED ONE 11/22 1342 DC Teaching ED 11/22 1343 Piperacillin Sod/ 2.25 GM Q8H 11/23 1130 AC Tazobactam Sod IV Sodium Chloride 50 ML Piperacillin Sod/ 2.25 GM Q8H 11/22 0900 DC 11/23 Tazobactam Sod IV 0323 Sodium Chloride 50 ML Potassium Chloride 10 MEQ Q1H 11/23 0645 DC 11/23 IV 11/23 0746 0806 Vital Signs & I&O Last 24 Hrs of Vitals and I&O: Vital Signs Date Time Temp Pulse Resp B/P Pulse O2 O2 Flow FiO2 Ox Delivery Rate 11/23 0831 103 94 / 0800 92 BIPAP 40% / 0800 98.0 92 30 140/63 92 BIPAP 40% / 0547 103 92 /04 0400 92 BIPAP 40% / 0253 89 90 /04 0033 88 93 03/04 0000 92 BIPAP 40% / 0000 93.2 96 28 118/50 92 BIPAP 40% / 2251 91 95 / 2143 60 29 120/57 11/23 1999 95 BIPAP 50% 11/23 1999 95.7 79 28 128/72 95 BIPAP 50% 11/22 1920 75 96 / 1701 78 96 / 1600 98 BIPAP 50% / 1600 96.6 74 26 130/80 96 BIPAP 60% / 1428 92 03/ 1243 90 93 03/03 1230 95 BIPAP 60% / 1138 94 142/54 03/03 1100 97.5 90 22 142/54 93 Part 60% ReBreather Intake & Output 04 1600 03/04 0800 03/04 0000 Intake Total 364 704.5 Output Total 50 50 Balance 314 654.5 Intake, IV 364 704.5 Intake, Oral 0 0 Number 0 Bowel Movements Output, Other 50 50 Patient 145 lb 138 lb Weight Saturation 40% 90-94% exam for chest shows diminished breath sounds at both bases cardiac exam shows a regular S1 and S2 abdomen is soft with cholecystostomy tube in place Impression/Plan Impression/Plan Impression/Plan: 81-year-old woman with multiple medical problems being conservatively treated for acute cholecystitis has developed acute on chronic hypercapnic history failure secondary to increasing effusions and atelectasis in conjunction with opiate administration. Patient has had a degree of hypercarbia in the past however now has acute kidney injury with renal failure compromising renal compensation for her worsening hypercarbia. Respiratory status appears somewhat improved she remains in renal failure. Recommendations: Continue BiPAP pending repeat blood gas this morning. Renal failure electrolytes to be managed by nephrology. Patient has significant atelectasis and effusions with planned for diagnostic and therapeutic right thoracentesis onceEliquis effect has resolved. Continue heparin at therapeutic PTT
[2016-11-23 09:37] LABS: PTT > 120 SEC (25-37)
--- NOTE | 2016-11-23 11:00 | Event Note ---
Event Note Event Note: We made several attempts to reach IR with regards to the diagnostic and therapeutic thoracentesis that was tentatively planned for this weekend based on the conversation that had taken place between our team and attending Dr. Gramajo. After several unsuccessful attempts, we were able to get ahold of the microbiological laboratory technician who informed us that IR procedures are only performed over the weekend if they are emergent. Hence the thoracentesis has been deferred to Friday. CRCU attending was made aware and is in agreement with the plan.
--- NOTE | 2016-11-23 11:15 | PN- Cardiology ---
Subjective Subjective: The patient is awake and alert. Her family is at the bedside. She remains hemodynamically stable. Currently on IV dobutamine. Objective Vital Signs and I&Os Vital Signs Date Time Temp Pulse Resp B/P Pulse O2 O2 Flow FiO2 Ox Delivery Rate 11/23 1058 105 94 03/ 0831 103 94 03/04 0800 92 BIPAP 40% 03/ 0800 98.0 92 30 140/63 92 BIPAP 40% / 0547 103 92 03/ 0400 92 BIPAP 40% / 0253 89 90 03/ 0033 88 93 03/04 0000 92 BIPAP 40% 03/ 0000 93.2 96 28 118/50 92 BIPAP 40% 11/22 2251 91 95 11/22 2143 60 29 120/57 11/23 1999 95 BIPAP 50% 11/23 1999 95.7 79 28 128/72 95 BIPAP 50% 11/22 1920 75 96 / 1701 78 96 11/22 1600 98 BIPAP 50% 11/22 1600 96.6 74 26 130/80 96 BIPAP 60% 11/22 1428 92 03/ 1243 90 93 03/03 1230 95 BIPAP 60% 11/22 1138 94 142/54 Intake & Output / 1600 / 0800 03/04 0000 03/03 1600 11/22 0800 /03 0000 Intake Total 364 704.5 240 60 Output Total 50 50 100 50 Balance 314 654.5 -100 190 60 Intake, IV 364 704.5 Intake, Oral 0 0 240 60 Number 0 1 2 Bowel Movements Output, 50 Drainage Output, Other 50 50 100 Patient 145 lb 138 lb Weight Physical Exam: General Appearance: Moderate Distress, drowsy, confused Skin: No Rashes, No Breakdown, cholecystostomy tube in the RUQ HEENT: Atraumatic, PERRLA, EOMI Neck: No JVD Lymphatic: Cervical nl Cardiovascular: Regular Rate, Normal S1, Normal S2 Lungs: DECREASED BREATH SOUNDS BILATERALLY Abdomen: Normal Bowel Sounds, Soft, CHOLECYSTOSTOMY TUBE IN THE RIGHT UPPER QUADRANT DRAINING REDDISH BROWN LIQUID Neurological: Nonfocal Extremities: No Clubbing, No Cyanosis, No Edema, TRACE BILATERAL PEDAL EDEMA Current Medications: Current Medications Sig/Kobi Start time Last Medication Dose Route Stop Time Status Admin Acetaminophen 650 MG Q6P PRN 11/14 1615 AC 11/18 PO 1622 Acetaminophen 1,000 MG Q6P PRN 11/14 1615 AC 11/21 IV 0854 Albuterol Sulfate 3 ML EVERY 4 HRS/AWAKE 11/23 1200 CAN INH Allopurinol 50 MG DAILY 11/15 1000 AC 11/22 PO 0901 Apixaban 2.5 MG BID 11/21 1414 DC 11/22 PO 0630 Baclofen 2.5 MG BID 11/14 2200 AC 11/22 PO 0859 Cholecalciferol 1,000 IU DAILY 11/15 1000 AC 11/22 PO 0900 Clopidogrel Bisulfate 75 MG DAILY 11/21 1414 DC 11/22 PO 0630 Dextrose/Sodium 1,000 ML Q13H 11/22 1430 DC 11/22 Chloride IV 1439 Dobutamine HCl 250 MG Q13H 11/23 1000 AC 11/23 Dextrose/Water 250 ML IV 1109 Dobutamine HCl 250 MG Q24H 11/22 2100 DC 11/22 Dextrose/Water 250 ML IV 2143 Ferrous Sulfate 325 MG BID 11/14 2200 AC 11/22 PO 0859 Gabapentin 100 MG DAILY 11/14 1600 AC 11/22 PO 0859 Heparin Sodium 25,000 UNIT Q24H 11/22 2300 DC (Porcine) IV Sodium Chloride 500 ML Heparin Sodium 25,000 UNIT Q24H 11/22 1800 AC 11/22 (Porcine) IV 1802 Sodium Chloride 500 ML Ipratropium [place] 2.5 ML EVERY 4 HRS/AWAKE 11/23 1200 CAN INH Lactobacillus 1 CAP DAILY 11/15 1000 AC 11/22 Acidophilus PO 0900 Levothyroxine Sodium 0.05 MG DAILY AC 11/15 0700 AC 11/22 PO 0618 Magnesium Sulfate 1 GM ONCE ONE 11/22 1900 DC 11/22 Dextrose/Water 100 ML IV 11/22 2259 1855 Magnesium Sulfate 1 GM Q2H 11/22 1900 DC 11/22 Dextrose/Water 100 ML IV 11/23 0059 2002 Magnesium Sulfate 1 GM ONCE ONE 11/22 1900 CAN Dextrose/Water 100 ML IV 11/22 2259 Melatonin 3 MG AT BEDTIME PRN 11/19 1545 AC PO Morphine Sulfate 1 MG Q4 HRS NEEDED PRN 11/21 1200 AC IV Multivitamins 1 TAB DAILY 11/15 1000 AC 11/22 Therapeutic PO 0900 Naloxone HCl 0.4 MG ONCE ONE 11/22 1230 DC 11/22 IV 11/22 1231 1225 Nifedipine 30 MG DAILY 11/21 0515 AC 11/22 PO 1138 Omeprazole 40 MG DAILY AC 11/20 0954 AC 11/22 PO 0620 Patient Medication 1 ED .STK-MED ONE 11/22 1342 MI Teaching ED 11/22 1343 Piperacillin Sod/ 2.25 GM Q8H 11/23 1130 AC 11/23 Tazobactam Sod IV 1105 Sodium Chloride 50 ML Piperacillin Sod/ 2.25 GM Q8H 11/22 0900 DC 11/23 Tazobactam Sod IV 0323 Sodium Chloride 50 ML Potassium Chloride 10 MEQ Q1H 11/23 0645 DC 11/23 IV 11/23 0746 0806 Results Last 48 Hrs of Labs/Mics: Laboratory Tests 11/23/16 1000: pH 7.40, pCO2 34 L, pO2 63 L, HCO3 21, ABG O2 Sat (Measured) 92.0 L, P-50 ( Temp Corrected) N, Carboxyhemoglobin 0.1 L, O2 Concentration % 40%, Respiration Rate 28, O2 Delivery Method BIPAP, Vent Mode ST, Expiratory Pressure 6, Inspiratory Pressure 16, Phlebotomy Draw Site RIGHT BRACHIAL 11/23/16 0817: APTT > 120 *H 11/23/16 0422: Anion Gap 14, Estimated GFR 14 L, Glucose 89, Calcium 9.5, Phosphorus 4.0, Magnesium 2.2, Total Bilirubin 0.7, AST 44 H, ALT 24, Albumin 2.5 L, PT 13.7 H, INR 1.31 H, CBC w Diff MAN DIFF ORDERED, RBC 3.40 L, MCV 84.0, MCH 27.8, RDW 21.7 H, MPV 8.6, Segmented Neutrophils 86 H, Band Neutrophils 4, Lymphocytes 1 L, Monocytes 7, Metamyelocytes 2 H, Nucleated RBCs 29 H, Platelet Estimate ADEQUATE, Polychromasia 1+, Hypochromic-Microcytic 1+, Poikilocytosis 2+, Target Cells 1+, Ovalocytes 1+, [place] Cells RARE, Elliptocytes FEW, Schistocytes RARE, PUBS MCHC 33.0, Fld Total RBCs Counted 100 11/23/16 0022: APTT > 120 *H 11/22/16 2137: Magnesium 2.2 11/22/16 1500: Anion Gap 13, Estimated GFR 14 L, Glucose 97, Calcium 8.8, Phosphorus 4.8 H, Magnesium 1.4 L, Total Bilirubin 0.6, AST 36, ALT 23, Albumin 2.8 L, TSH 5.000 H, Free T4 0.51 L 11/22/16 1203: pH 7.24 *L, pCO2 53 H, pO2 57 L, HCO3 23, ABG O2 Sat (Measured) 91.0 L, P-50 (Temp Corrected) YES, Carboxyhemoglobin 1.1 L, O2 Concentration % 60%, Temperature 97.5, Respiration Rate 24, O2 Delivery Method BIPAP, Vent Mode ST, Expiratory Pressure 4, Inspiratory Pressure 14, Phlebotomy Draw Site RIGHT RADIAL 11/22/16 1020: pH 7.24 *L, pCO2 56 H, pO2 62 L, HCO3 23, ABG O2 Sat (Measured) 91.0 L, P-50 (Temp Corrected) N, Carboxyhemoglobin 0.6 L, O2 Concentration % 60%, Temperature 97.5, O2 Delivery Method PRB, Phlebotomy Draw Site RIGHT RADIAL 11/22/16 0620: Anion Gap 10, Estimated GFR 13 L, BUN/Creatinine Ratio 15.8, CBC w Diff MAN DIFF ORDERED, RBC 3.55 L, MCV 84.5, MCH 27.5, RDW 21.1 H, MPV 7.9, Segmented Neutrophils 75, Band Neutrophils 4, Lymphocytes 7 L, Monocytes 4, Eosinophils 1 , Metamyelocytes 2 H, Myelocytes 7 H, Nucleated RBCs 22 H, Platelet Estimate ADEQUATE, Hypochromic-Microcytic 2+, Poikilocytosis 3+, Anisocytosis 2+, Target Cells 2+, PUBS MCHC 32.5 L 11/21/16 1440: Lactic Acid 1.0 Assessment/Plan Assessment/Plan Assessment: 1. Acute hypoxic respiratory failure with bilateral pleural effusions 2. History of severe pulmonary hypertension 3. Prior DVT/pulmonary emboli 4. Acute cholecystitis, status post cholecystostomy tube 5. Acute renal insufficiency-stable and slowly improving 6. Acute on chronic anemia 7. Hypomagnesemia-resolved 8. Elevated TSH Recommendations: -Continue all supportive care as presently -For now, I would continue the patient on IV dobutamine as suggested by Dr. Kirk. -Continue to maintain the patient on personnel monitor -Continue to monitor strict intakes, outputs, daily weights, and follow-up laboratories. -Please check a repeat ECG in the morning. Continue telemetry? Yes 4. Cholelithiasis with hydropic gallbladder: * s/p cholecystostomy tube placement by IR 1DA with biliary drainage culture, follow up culture. * Bili culture showed no growth * Eliquis and Plavix restarted from 11/22/2016 5. Acute on chronic anemia : * Received 1 unit of blood transfusion yesterday. H&H pending. * Evaluated by GI yesterday, no plans of acute intervention at this time * Patient continued on Protonix and probiotic * Patient tolerating a liquid diet. * Holding Eliquis and Plavix for anemia and guaiac positive stools
--- NOTE | 2016-11-23 12:36 | PN- Infect Dx ---
Subjective Subjective: Afebrile without complaints Objective Last 24 Hrs of Vital Signs/I&O Vital Signs Date Time Temp Pulse Resp B/P Pulse O2 O2 Flow FiO2 Ox Delivery Rate 11/23 1158 97 Nasal 4.0L Cannula 11/23 1058 105 94 03/ 0831 103 94 / 0800 92 BIPAP 40% 11/23 08 98.0 92 30 140/63 92 BIPAP 40% 11/23 0547 103 92 11/23 0400 92 BIPAP 40% 11/23 0253 89 90 11/23 0033 88 93 03/ 0000 92 BIPAP 40% / 0000 93.2 96 28 118/50 92 BIPAP 40% 11/22 2251 91 95 11/22 2143 60 29 120/57 11/23 1999 95 BIPAP 50% 11/23 1999 95.7 79 28 128/72 95 BIPAP 50% 11/22 1920 75 96 11/22 1701 78 96 11/22 1600 98 BIPAP 50% 11/22 1600 96.6 74 26 130/80 96 BIPAP 60% 11/22 1428 92 11/22 1243 90 93 03/03 1230 95 BIPAP 60% Intake & Output / 1600 /04 0800 03/ 0000 Intake Total 364 704.5 Output Total 50 50 Balance 314 654.5 Intake, IV 364 704.5 Intake, Oral 0 0 Number 0 Bowel Movements Output, Other 50 50 Patient 145 lb 138 lb Weight Physical Exam Other Physical Findings: She appears more awake and alert in no acute distress Lungs decreased breath sounds bilaterally Heart regular rhythm with no murmur Abdomen distended, with no obvious tenderness, positive bowel sounds; cholecystostomy tube in place with 50 mL output yesterday Results Last 24 Hours of Lab Results: Laboratory Tests 11/23 11/23 1000 0817 Blood Gas pH (7.35 - 7.45 PH) 7.40 pCO2 (35 - 45 TORR) 34 L pO2 (80 - 100 TORR) 63 L HCO3 (21 - 28 MEQ/L) 21 ABG O2 Sat (Measured) (>96.0 %) 92.0 L P-50 (Temp Corrected) N Carboxyhemoglobin (1.5 - 5.0 %) 0.1 L O2 Concentration % 40% Respiration Rate (BPM) 28 O2 Delivery Method BIPAP Vent Mode ST Expiratory Pressure (CM H2O P) 6 Inspiratory Pressure (CM H2O P) 16 Coagulation APTT (25 - 37 SEC) > 120 *H Miscellaneous Phlebotomy Draw Site RIGHT BRACHIAL 11/23 11/23 11/22 0422 0022 2137 Chemistry Sodium (137 - 145 mmol/L) 139 Potassium (3.5 - 5.1 mmol/L) 3.5 Chloride (98 - 107 mmol/L) 107 Carbon Dioxide (22 - 30 mmol/L) 19 L Anion Gap (5 - 16) 14 BUN (7 - 17 mg/dL) 53 H Creatinine (0.5 - 1.0 mg/dL) 3.1 H Estimated GFR (>60 ml/min) 14 L Glucose (65 - 99 mg/dL) 89 Calcium (8.4 - 10.2 mg/dL) 9.5 Phosphorus (2.5 - 4.5 mg/dL) 4.0 Magnesium (1.6 - 2.3 mg/dL) 2.2 2.2 Total Bilirubin (0.2 - 1.3 mg/dL) 0.7 AST (14 - 36 U/L) 44 H ALT (9 - 52 U/L) 24 Albumin (3.5 - 5.0 g/dL) 2.5 L Coagulation PT (9.4 - 12.5 SEC) 13.7 H INR (0.90 - 1.19) 1.31 H APTT (25 - 37 SEC) > 120 *H Hematology CBC w Diff MAN DIFF ORDERED WBC (4.8 - 10.8 /CUMM) 24.1 H RBC (4.20 - 5.40 /CUMM) 3.40 L Hgb (12.0 - 16.0 G/DL) 9.4 L Hct (37 - 47 %) 28.6 L MCV (81.0 - 99.0 FL) 84.0 MCH (27.0 - 31.0 PG) 27.8 RDW (11.5 - 14.5 %) 21.7 H Plt Count (130 - 400 /CUMM) 363 MPV (7.4 - 10.4 FL) 8.6 Segmented Neutrophils (42.2 - 75.2 %) 86 H Band Neutrophils (0.0 - 5.0 %) 4 Lymphocytes (20.5 - 51.1 %) 1 L Monocytes (1.7 - 9.3 %) 7 Metamyelocytes (0.0 - 1.0 %) 2 H Nucleated RBCs (0.0 - 0.0 /100WBC) 29 H Platelet Estimate (ADEQUATE) ADEQUATE Polychromasia 1+ Hypochromic-Microcytic 1+ Poikilocytosis 2+ Target Cells 1+ Ovalocytes 1+ [place]y Cells RARE Elliptocytes FEW Schistocytes RARE PUBS MCHC (33.0 - 37.0 G/DL) 33.0 Other Body Source Fld Total RBCs Counted (%) 100 03/03 1500 Chemistry Sodium (137 - 145 mmol/L) 140 Potassium (3.5 - 5.1 mmol/L) 4.1 Chloride (98 - 107 mmol/L) 104 Carbon Dioxide (22 - 30 mmol/L) 23 Anion Gap (5 - 16) 13 BUN (7 - 17 mg/dL) 54 H Creatinine (0.5 - 1.0 mg/dL) 3.2 H Estimated GFR (>60 ml/min) 14 L Glucose (65 - 99 mg/dL) 97 Calcium (8.4 - 10.2 mg/dL) 8.8 Phosphorus (2.5 - 4.5 mg/dL) 4.8 H Magnesium (1.6 - 2.3 mg/dL) 1.4 L Total Bilirubin (0.2 - 1.3 mg/dL) 0.6 AST (14 - 36 U/L) 36 ALT (9 - 52 U/L) 23 Albumin (3.5 - 5.0 g/dL) 2.8 L TSH (0.270 - 4.200 uIU/mL) 5.000 H Free T4 (0.85 - 1.93 ng/dL) 0.51 L Last 24 Hours of Jun Results: No recent cultures Recent Imaging Studies: Dopplers of both lower extremities November 22 negative Assessment/Plan Impression: Stable, with respiratory status improved after BiPAP and Dobutamine. She remains afebrile but her white blood cell count remains elevated, unchanged over the past 2 days, despite now 1 week of Zosyn for presumed acute cholecystitis now 5 days status post placement of a cholecystostomy tube, with culture of the bile negative and with recent repeat CT scan negative for any other intra- abdominal process. Suggestion: 1. Await possible thoracentesis per Pulmonary 2. Continue Zosyn
[2016-11-23 16:08] VITALS: BP 142/64
[2016-11-23 16:23] LABS: PTT > 120 SEC (25-37)
--- NOTE | 2016-11-23 17:46 | NUR ---
PT HAD LIQUID RED STOOL WITH CLOT, NOTIFIED, VSS, WILL CONT TO MON.
--- NOTE | 2016-11-23 17:51 | NUR ---
HEP GTT DC
[2016-11-23 21:26] LABS: HEMATOCRIT 26.4 % (37-47); MEAN CORPUSCULAR HGB 27.5 PG (27.0-31.0); MEAN CORPUSCULAR HGB CONC 32.9 G/DL (33.0-37.0); MEAN CORPUSCULAR VOLUME 83.8 FL (81.0-99.0); MEAN PLATELET VOLUME 7.9 FL (7.4-10.4); PLATELET COUNT 340 /CUMM (130-400); RED BLOOD CELL CT 3.15 /CUMM (4.20-5.40); WHITE BLOOD CELL COUNT 23.2 /CUMM (4.8-10.8)
--- NOTE | 2016-11-23 21:32 | NUR ---
@2000 TURNED AND REPOSITIONED PT AND SMALL OOZE OF BLOOD FROM RECTUM. HEPARIN DRIP WAS DISCONTINUED AT 1800, NOTIFIED DR. MIRNA PONCE AND CATY MANZANARES. CBC ORDERED AND DRAWN. WILL MONITOR.
--- NOTE | 2016-11-23 22:23 | NUR ---
H/H 8.7/26.4 MD HEIDY REYES AWARE. PER WILL RECHECK IN AM BUT NO FURTHER INTERVENTIONS.
[2016-11-24] VITALS: BP 148/68
--- NOTE | 2016-11-24 01:21 | NUR ---
TOOK PT OFF OF BIPAP FOR SIP OF WATER AND NOTICED RIGHT NOSTRIL WITH DRIED BLOOD, HAD PT OPEN MOUTH AND TONGUE NOTED TO BE BLOODY RED, PT STATED DRANK CRANBERRY JUICE? HOSPITAL DOES NOT CARRY CRANBERRY ANYMORE. HEPARIN DRIP HAS BEEN OFF SINCE 1600 11/23/16, WHEN CHANGING PT BLOOD STILL OOZING FROM RECTUM.NOTIFIED MD HEIDY REYES #[phone] WHO DISCUSSED WITH RESIDENT MAKAYLA.
[2016-11-24 05:02] LABS: HEMATOCRIT 26.2 % (37-47); MEAN CORPUSCULAR HGB 27.8 PG (27.0-31.0); MEAN CORPUSCULAR HGB CONC 33.1 G/DL (33.0-37.0); MEAN CORPUSCULAR VOLUME 83.8 FL (81.0-99.0); PLATELET COUNT 346 /CUMM (130-400); RBC DISTRIBUTION WIDTH 20.9 % (11.5-14.5); RED BLOOD CELL CT 3.12 /CUMM (4.20-5.40); WHITE BLOOD CELL COUNT 23.4 /CUMM (4.8-10.8)
[2016-11-24 05:13] LABS: PT 12.3 SEC (9.4-12.5); PTT 59 SEC (25-37)
[2016-11-24 08:00] VITALS: BP 128/50
--- NOTE | 2016-11-24 09:31 | PN- Pulmonary ---
Subjective HPI/Critical Care Issues: Patient is more awake alert conversant off BiPAP hypercarbia is improved Objective Current Medications: Current Medications Sig/Kobi Start time Last Medication Dose Route Stop Time Status Admin Acetaminophen 650 MG Q6P PRN 11/14 1615 AC 11/24 PO 0606 Acetaminophen 1,000 MG Q6P PRN 11/14 1615 AC 11/21 IV 0854 Albuterol Sulfate 3 ML EVERY 4 HRS/AWAKE 11/23 1200 CAN INH Allopurinol 50 MG DAILY 11/15 1000 AC 11/23 PO 0916 Baclofen 2.5 MG BID 11/14 2200 AC 11/23 PO 2121 Cholecalciferol 1,000 IU DAILY 11/15 1000 AC 11/22 PO 0900 Dobutamine HCl 250 MG Q13H 11/23 1000 AC 11/24 Dextrose/Water 250 ML IV 0134 Ferrous Sulfate 325 MG BID 11/14 2200 AC 11/23 PO 2121 Gabapentin 100 MG DAILY 11/14 1600 AC 11/23 PO 0916 Heparin Sodium 25,000 UNIT Q24H 11/22 1800 DC 11/22 (Porcine) IV 1802 Sodium Chloride 500 ML Ipratropium [place] 2.5 ML EVERY 4 HRS/AWAKE 11/23 1200 CAN INH Lactobacillus 1 CAP DAILY 11/15 1000 AC 11/22 Acidophilus PO 0900 Levothyroxine Sodium 0.05 MG DAILY AC 11/15 0700 AC 11/24 PO 0601 Melatonin 3 MG AT BEDTIME PRN 11/19 1545 AC PO Morphine Sulfate 1 MG Q4 HRS NEEDED PRN 11/21 1200 AC IV Multivitamins 1 TAB DAILY 11/15 1000 AC 11/22 Therapeutic PO 0900 Nifedipine 30 MG DAILY 11/21 0515 AC 11/23 PO 0916 Omeprazole 40 MG DAILY AC 11/20 0954 AC 11/24 PO 0601 Piperacillin Sod/ 2.25 GM Q8H 11/23 1130 AC 11/24 Tazobactam Sod IV 0418 Sodium Chloride 50 ML Potassium Chloride 20 MEQ ONCE ONE 11/24 599 DC 11/24 PO 11/24 0601 0601 Potassium Chloride 20 MEQ ONCE ONE 11/24 0600 DC 11/24 PO 11/24 0601 0601 Vital Signs & I&O Last 24 Hrs of Vitals and I&O: Vital Signs Date Time Temp Pulse Resp B/P Pulse O2 O2 Flow FiO2 Ox Delivery Rate 03/05 0846 93 92 11/24 0800 93 BIPAP 40% / 0800 96.9 81 20 128/50 93 BIPAP 40% / 0400 91 Nasal 4.0L Cannula / 0134 101 21 160/70 03/ 0051 106 93 03/05 0000 94 BIPAP 40% / 0000 97.2 102 29 148/68 94 BIPAP 40% / 2205 93 Nasal 3.0L Cannula / 2200 111 93 / 2000 90 Nasal 4.0L Cannula / 1608 97.9 106 19 142/64 92 Nasal 4.0L Cannula / 1600 93 Nasal 4.0L Cannula / 1158 97 Nasal 4.0L Cannula / 1058 105 94 Intake & Output 11/24 1600 11/24 0800 / 0000 Intake Total 705.5 650.2 Output Total 50 40 Balance 655.5 610.2 Intake, IV 225.5 350.2 Intake, Oral 480 300 Number 0 1 Bowel Movements Output, Other 50 40 Patient 143 lb Weight Oxygen saturations were liters 92% exam for chest shows diminished breath sounds at the bases cardiac exam shows regular rhythm, exam is soft nontender Impression/Plan Impression/Plan Impression/Plan: 81-year-old woman with multiple medical problems being conservatively treated for acute cholecystitis has developed acute on chronic hypercapnic history failure secondary to increasing effusions and atelectasis in conjunction with opiate administration. Patient has had a degree of hypercarbia in the past however now has acute kidney injury with renal failure compromising renal compensation for her worsening hypercarbia. Respiratory status is markedly improved patient no longer requires BiPAP Recommendations: Can use BiPAP when necessary respiratory status appears improved. Await thoracentesis tomorrow. She requires continued anticoagulation in view of recent pulmonary embolism which should be stopped at least 4 hours prior to her anticipated thoracentesis tomorrow. Felisha patient out of bed with IST and pulmonary toilet to assist with atelectasis
--- NOTE | 2016-11-24 09:36 | PN- Resident CRCU ---
NADEGE METZ,ARVIN 11/24/16 0936: Subjective HPI/CRCU Issues: I followed up and examined the patient today. She is lying comfortably in the bed, with additional oxygen being delivered by nasal cannula, dobutamine drip still on, alert, oriented, without any complaints. Nursing staff reported me that overnight she had bright red blood per rectum which has stopped since this morning, but she did have episodes of epistaxis and a clot was removed from her nose this morning. Her IV heparin was held because of the same reason. Objective Vital Signs & I&O Last 8 Hrs of Vitals and I&O: Vital Signs Date Time Temp Pulse Resp B/P Pulse O2 O2 Flow FiO2 Ox Delivery Rate 11/24 1644 94 Nasal 4.0L Cannula 11/24 1600 92 Nasal 4.0L Cannula / 1600 96.5 94 20 120/48 96 Nasal 4.0L Cannula / 1200 93 Nasal 4.0L Cannula / 0846 93 92 03/ 0835 95 Nasal 4.0L Cannula / 0800 93 BIPAP 40% / 0800 96.9 81 20 128/50 93 BIPAP 40% /05 0400 91 Nasal 4.0L Cannula / 0134 101 21 160/70 03/05 0051 106 93 03/05 0000 94 BIPAP 40% 03/05 0000 97.2 102 29 148/68 94 BIPAP 40% /04 2205 93 Nasal 3.0L Cannula / 2200 111 93 03/04 2000 90 Nasal 4.0L Cannula Intake & Output / 1600 03/05 0800 03/05 0000 Intake Total 581.2 705.5 650.2 Output Total 50 40 Balance 581.2 655.5 610.2 Intake, IV 201.2 225.5 350.2 Intake, Oral 380 480 300 Number 1 0 1 Bowel Movements Output, Other 50 40 Patient 64.892 kg Weight Exam General Appearance: well developed/nourished, no apparent distress, alert, awake , comfortable, overweight Other Physical Findings: Head: atraumatic, normal appearance Respiratory: decreased breath sounds b/l Cardiovascular: regular rate/rhythm, normal S1 and S2, no murmurs, rubs or gallops Gastrointestinal: soft, non-tender, positive bowel sounds, cholecystostomy in place at RUQ Extremities: trace edema on bilateral lower extremities Current Medications: Current Medications Sig/Kobi Start time Last Medication Dose Route Stop Time Status Admin Acetaminophen 650 MG .STK-MED ONE 11/24 06 DC PO 11/24 06 Acetaminophen 650 MG Q6P PRN 11/14 1615 AC 11/24 PO 0606 Acetaminophen 1,000 MG Q6P PRN 11/14 1615 AC 11/21 IV 0854 Allopurinol 50 MG DAILY 11/15 1000 AC 11/24 PO 0946 Baclofen 2.5 MG BID 11/14 2200 AC 11/24 PO 0946 Cholecalciferol 1,000 IU DAILY 11/15 1000 AC 11/24 PO 0946 Dobutamine HCl 250 MG Q13H 11/23 1000 AC 11/24 Dextrose/Water 250 ML IV 1413 Ferrous Sulfate 325 MG BID 11/14 2200 AC 11/24 PO 0946 Gabapentin 100 MG DAILY 11/14 1600 AC 11/24 PO 0946 Lactobacillus 1 CAP DAILY 11/15 1000 AC 11/24 Acidophilus PO 0946 Levothyroxine Sodium 0.05 MG DAILY AC 11/15 0700 AC 11/24 PO 0601 Melatonin 3 MG AT BEDTIME PRN 11/19 1545 AC PO Morphine Sulfate 1 MG Q4 HRS NEEDED PRN 11/21 1200 AC IV Multivitamins 1 TAB DAILY 11/15 1000 AC 11/24 Therapeutic PO 0946 Nifedipine 30 MG DAILY 11/21 0515 AC 11/24 PO 0946 Omeprazole 40 MG DAILY AC 11/20 0954 AC 11/24 PO 0601 Piperacillin Sod/ 2.25 GM Q8H 11/23 1130 AC 11/24 Tazobactam Sod IV 1128 Sodium Chloride 50 ML Potassium Chloride 20 MEQ ONCE ONE 11/24 06 DC 11/24 PO 11/24 0601 0601 Potassium Chloride 20 MEQ ONCE ONE 11/24 0600 DC 11/24 PO 11/24 0601 0601 Impression/Plan Impression/Problem List Impression: 81 y/o F with PMHx of spinal cord stroke c/b quadriplegia, DVT and PE on Eliquis , renal artery stenosis s/p stent placement, hemoglobin SC trait, severe HTN and CKD who presented with acute cholecystitis s/p cholecystectomy with a hospital course complicated by acute hypoxemic and hypercarbic respiratory failure, LILLIE and ABLA. She is currently being managed in the ICU for the following issues: Respiratory: #Acute hypoxemic and hypercapnic respiratory failure: Respiratory status has improved with BiPAP and IV dobutamine drip. BiPAP was discontinued yesterday and oxygen is being delivered by nasal cannula. * Continue to provide supplemental oxygen as needed to keep SpO2 > 92%. * Plan for diagnostic and therapeutic thoracentesis on tomorrow Friday (11/25/2016 ). * IV heparin has to be on hold for at least 4 hours before the procedure Infectious Diseases: #Presumed acute cholecystitis: S/p cholecystostomy tube placement. Remains afebrile but with persistent leukocytosis on day 7 of Zosyn. Bile cultures are negative. Repeat CT Abdomen Pelvis (11/20/16) negative for any other intraabdominal process. * ID following. Appreciate their recs. * Continue Zosyn 2.25 g IV Q8H. Cardiovascular: #Acute diastolic CHF: CXR with bilateral pleural effusions consistent with CHF. Patient is very pre-load dependent given her history of severe pulmonary HTN. * Cardiology following. Appreciate their recs. * Continue IV dobutamine drip on increase contractility. * Repeat ECHO pending. #Severe HTN: History of uncontrolled HTN. * Continue prior to admission nifedipine 30 mg PO daily. Hematology: #ABLA: Episode of BRBPR accompanied by drop in H/H from 9.4/28.6 this AM to 8.7/ 26.4. yesterday and 8.7/26.2 this morning. Heparin IV discontinued. * Monitor off IV heparin. * Repeat CBC at 1500 hrs. * Continue to monitor H/H and transfuse as needed to keep Hgb > 7. #Prior DVT/pulmonary emboli: S/p IVC filter placement in 2012. On Eliquis as outpatient. * IV heparin discontinued in the setting of BRBPR. Metabolic: #LILLIE: Likely presents ATN secondary to sepsis. Cr stable at 3.1. * Nephrology following. Appreciate their recs. * Avoid bicarbonate unless pH < 7.20 despite aggressive ventilation. * No indication for Lasix or dialysis at this time. * Continue to monitor lytes and kidney function. #Hypothyroidism: * Continue prior to admission 50 mcg PO daily. Alimentary: Heart Healthy Diet - Mechanical soft/ground and thin liquids Neurological: Improving. More awake and alert today. DVT/Prophylaxis: mechanical Code Status: Full Code Problem List: 1. Sepsis 2. Acute cholecystitis 3. Cholelithiasis 4. Acute diastolic CHF (congestive heart failure) 5. Acute hypoxemic respiratory failure 6. Pulmonary hypertension, moderate to severe 7. Hypothyroidism 8. Anemia Pain Ratin Tomorrow's Labs & Rationales: ICU lab bundle, CBC to follow her anemia, renal function Plan DVT/Prophylaxis: mechanical Code Status: Full Code YESENIA RODRIGUEZ MD 11/24/16 1515: Attending MD Review Statement Attending Sign Off Attending Cosign Statement: I have: examined this patient, reviewed [facility] EMR data, discussd w/resident/PA/ GIS DATABASE ADMINISTRATOR, agreed w/resident/PA/GIS DATABASE ADMINISTRATOR. 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 Patient stable today, doing well. Plan is to continue heparin drip, thoracentesis on Friday, continue Zosyn, follow ID, pulmonary, cardiology recommendations.
--- NOTE | 2016-11-24 12:13 | NUR ---
PT HAD BRIGHT RED BLOOD RECTALLY THIS AM, AWARE,WILL CONT TO MON.
--- NOTE | 2016-11-24 13:17 | PN- Cardiology ---
Subjective Subjective: The patient appears hemodynamically stable today. She continues on dobutamine drip. The patient's IV heparin was held due to evidence of lower GI bleeding with bright red blood and clots per rectum yesterday. At that time, the patient 's PTT was reportedly greater than 120. At the moment, she remains off of the IV heparin for now. Today, as well, she has had episodes of epistaxis. No other obvious change in her cardiac status. Objective Vital Signs and I&Os Vital Signs Date Time Temp Pulse Resp B/P Pulse O2 O2 Flow FiO2 Ox Delivery Rate 03/ 1200 93 Nasal 4.0L Cannula / 0846 93 92 03/05 0835 95 Nasal 4.0L Cannula / 0800 93 BIPAP 40% / 0800 96.9 81 20 128/50 93 BIPAP 40% /05 0400 91 Nasal 4.0L Cannula 03/ 0134 101 21 160/70 03/05 0051 106 93 03/05 0000 94 BIPAP 40% 03/05 0000 97.2 102 29 148/68 94 BIPAP 40% 03/04 2205 93 Nasal 3.0L Cannula 03/04 2200 111 93 03/04 2000 90 Nasal 4.0L Cannula 03/04 1608 97.9 106 19 142/64 92 Nasal 4.0L Cannula 03/04 1600 93 Nasal 4.0L Cannula Intake & Output 03/05 1600 03/05 0800 03/05 0000 03/04 1600 03/04 0800 03/04 0000 Intake Total 705.5 650.2 379.4 364 704.5 Output Total 50 40 50 50 Balance 655.5 610.2 379.4 314 654.5 Intake, IV 225.5 350.2 379.4 364 704.5 Intake, Oral 480 300 0 0 0 Number 0 1 0 Bowel Movements Output, Other 50 40 50 50 Patient 143 lb 145 lb 138 lb Weight Physical Exam: General Appearance: Mild Distress, drowsy, sleepy Skin: Normal HEENT: Normal Neck: No JVD, carotids normal bilaterally Cardiovascular: Regular Rate, Normal S1, Normal S2, 1/6 systolic murmur left sternal border Lungs: Lateral rhonchi Abdomen: Normal Bowel Sounds, Soft, cholecystostomy tube in the right upper quadrant draining dark brown liquid Neurological: quadriplegic Extremities: No Clubbing, trace bilateral pedal edema Vascular: Normal Pulses Current Medications: Current Medications Sig/Kobi Start time Last Medication Dose Route Stop Time Status Admin Acetaminophen 650 MG Q6P PRN 11/14 1615 AC 11/24 PO 0606 Acetaminophen 1,000 MG Q6P PRN 11/14 1615 AC 11/21 IV 0854 Allopurinol 50 MG DAILY 11/15 1000 AC 11/24 PO 0946 Baclofen 2.5 MG BID 11/14 2200 AC 11/24 PO 0946 Cholecalciferol 1,000 IU DAILY 11/15 1000 AC 11/24 PO 0946 Dobutamine HCl 250 MG Q13H 11/23 1000 AC 11/24 Dextrose/Water 250 ML IV 0134 Ferrous Sulfate 325 MG BID 11/14 2200 AC 11/24 PO 0946 Gabapentin 100 MG DAILY 11/14 1600 AC 11/24 PO 0946 Heparin Sodium 25,000 UNIT Q24H 11/22 1800 DC 11/22 (Porcine) IV 1802 Sodium Chloride 500 ML Lactobacillus 1 CAP DAILY 11/15 1000 AC 11/24 Acidophilus PO 0946 Levothyroxine Sodium 0.05 MG DAILY AC 11/15 0700 AC 11/24 PO 0601 Melatonin 3 MG AT BEDTIME PRN 11/19 1545 AC PO Morphine Sulfate 1 MG Q4 HRS NEEDED PRN 11/21 1200 AC IV Multivitamins 1 TAB DAILY 11/15 1000 AC 11/24 Therapeutic PO 0946 Nifedipine 30 MG DAILY 11/21 0515 AC 11/24 PO 0946 Omeprazole 40 MG DAILY AC 11/20 0954 AC 11/24 PO 0601 Piperacillin Sod/ 2.25 GM Q8H 11/23 1130 AC 11/24 Tazobactam Sod IV 1128 Sodium Chloride 50 ML Potassium Chloride 20 MEQ ONCE ONE 11/24 599 DC 11/24 PO 11/24 0601 0601 Potassium Chloride 20 MEQ ONCE ONE 11/24 0600 DC 11/24 PO 11/24 0601 0601 Results Last 48 Hrs of Labs/Mics: Laboratory Tests 11/24/16 0410: Anion Gap 10, Estimated GFR 14 L, Glucose 65, Calcium 8.9, Phosphorus 3.6, Magnesium 1.9, Total Bilirubin 0.7, AST 68 H, ALT 39, Albumin 2.4 L, PT 12.3, INR 1.17, APTT 59 H, Fibrinogen Activity 447 H, Fibrin Degrad Products >10 but < 40 ug/ml H, CBC w Diff MAN DIFF ORDERED, RBC 3.12 L, MCV 83.8, MCH 27.8, RDW 20.9 H, MPV 8.0, Segmented Neutrophils 88 H, Band Neutrophils 2, Lymphocytes 5 L, Monocytes 2, Metamyelocytes 2 H, Nucleated RBCs 37 H, Platelet Estimate ADEQUATE, Polychromasia 1+, Hypochromic-Microcytic 1+, Poikilocytosis 3+, Anisocytosis 1+, Macrocytic Cells 1+, Target Cells 3+, PUBS MCHC 33.1 11/23/160: APTT Cancelled 11/23/16 2015: CBC w Diff MAN DIFF ORDERED, RBC 3.15 L, MCV 83.8, MCH 27.5, RDW 21.0 H, MPV 7.9, Segmented Neutrophils 84 H, Band Neutrophils 3, Lymphocytes 5 L, Monocytes 4, Metamyelocytes 4 H, Nucleated RBCs 44 H, Platelet Estimate VERIFIED BY SMEAR, Polychromasia 1+, Hypochromic-Microcytic 1+, Poikilocytosis 2 +, Anisocytosis 1+, Target Cells 2+, PUBS MCHC 32.9 L 11/23/16 1530: APTT > 120 *H 11/23/16 1445: pH 7.37, pCO2 36, pO2 58 L, HCO3 21, ABG O2 Sat (Measured) 89.0 L, P-50 (Temp Corrected) N, Carboxyhemoglobin 0.4 L, O2 Concentration % 4LPM, O2 Delivery Method NC, Phlebotomy Draw Site RIGHT RADIAL 11/23/16 1000: pH 7.40, pCO2 34 L, pO2 63 L, HCO3 21, ABG O2 Sat (Measured) 92.0 L, P-50 ( Temp Corrected) N, Carboxyhemoglobin 0.1 L, O2 Concentration % 40%, Respiration Rate 28, O2 Delivery Method BIPAP, Vent Mode ST, Expiratory Pressure 6, Inspiratory Pressure 16, Phlebotomy Draw Site RIGHT BRACHIAL 11/23/16 0817: APTT > 120 *H 11/23/16 0700: Fluid WBC Cancelled, Fld Total RBCs Counted Cancelled 11/23/16 0700: Fluid Glucose Cancelled, Fluid Total Protein Cancelled, Fluid Albumin Cancelled, Fluid LDH Cancelled 11/23/16 0422: Anion Gap 14, Estimated GFR 14 L, Glucose 89, Calcium 9.5, Phosphorus 4.0, Magnesium 2.2, Total Bilirubin 0.7, AST 44 H, ALT 24, Albumin 2.5 L, PT 13.7 H, INR 1.31 H, CBC w Diff MAN DIFF ORDERED, RBC 3.40 L, MCV 84.0, MCH 27.8, RDW 21.7 H, MPV 8.6, Segmented Neutrophils 86 H, Band Neutrophils 4, Lymphocytes 1 L, Monocytes 7, Metamyelocytes 2 H, Nucleated RBCs 29 H, Platelet Estimate ADEQUATE, Polychromasia 1+, Hypochromic-Microcytic 1+, Poikilocytosis 2+, Target Cells 1+, Ovalocytes 1+, [place] Cells RARE, Elliptocytes FEW, Schistocytes RARE, PUBS MCHC 33.0, Fld Total RBCs Counted 100 11/23/16 0022: APTT > 120 *H 11/22/16 2137: Magnesium 2.2 11/22/16 1500: Anion Gap 13, Estimated GFR 14 L, Glucose 97, Calcium 8.8, Phosphorus 4.8 H, Magnesium 1.4 L, Total Bilirubin 0.6, AST 36, ALT 23, Albumin 2.8 L, TSH 5.000 H, Free T4 0.51 L Assessment/Plan Assessment/Plan Assessment: 1. Acute hypoxic respiratory failure with bilateral pleural effusions 2. History of severe pulmonary hypertension 3. Prior DVT/pulmonary emboli 4. Acute cholecystitis, status post cholecystostomy tube 5. Acute renal insufficiency-stable and slowly improving 6. Acute on chronic anemia 7. Hypomagnesemia-resolved 8. Elevated TSH Recommendations: -Continue all supportive care as presently -For now, I would continue the patient on IV dobutamine as suggested by Dr. Kirk. -In view of the patient's evidence of lower GI bleeding with bright red blood per rectum and blood clots yesterday, I would continue to hold the patient's IV heparin for now. -Reassess status in the morning and consider restarting heparin at that time if stable -If the patient continues to have evidence of GI bleeding, obtain further input from the GI service. -Continue to maintain the patient on ekg monitor tech -Continue to monitor strict intakes, outputs, daily weights, and follow-up laboratories. -Please check a repeat ECG in the morning. Continue telemetry? Yes
--- NOTE | 2016-11-24 15:53 | NUR ---
PT COUGHED UP LARGE BLOOD CLOT, SHOWN, IN ROOM TO EVALUATE PT. VSS, NO C/O PAIN OR DISCOMFORT, CBC DRAWN WILL CONT TO MON.
[2016-11-24 16:00] VITALS: BP 120/48
[2016-11-24 17:05] LABS: HEMATOCRIT 25.8 % (37-47); MEAN CORPUSCULAR HGB 27.9 PG (27.0-31.0); MEAN CORPUSCULAR VOLUME 84.6 FL (81.0-99.0); MEAN PLATELET VOLUME 7.9 FL (7.4-10.4); PLATELET COUNT 322 /CUMM (130-400); RBC DISTRIBUTION WIDTH 21.3 % (11.5-14.5); RED BLOOD CELL CT 3.05 /CUMM (4.20-5.40); WHITE BLOOD CELL COUNT 19.1 /CUMM (4.8-10.8)
--- NOTE | 2016-11-24 20:46 | NUR ---
PT RESTING DAUGHTER AT BEDSIDE NO C/O OFFERED. NASAL 02 AT 4L O2 SAT 97% BS DIMINISHED AT BASES. MONITOR SR W/O ECTOPICS. INC OF URINE. TO BE NPO AFTER MIDNIGHT FOR PROCEEDURE.
[2016-11-25] VITALS: BP 120/46
[2016-11-25 05:00] LABS: HEMATOCRIT 25.2 % (37-47); MEAN CORPUSCULAR HGB 27.6 PG (27.0-31.0); MEAN CORPUSCULAR HGB CONC 32.6 G/DL (33.0-37.0); MEAN CORPUSCULAR VOLUME 84.6 FL (81.0-99.0); MEAN PLATELET VOLUME 7.6 FL (7.4-10.4); PLATELET COUNT 325 /CUMM (130-400); RBC DISTRIBUTION WIDTH 21.9 % (11.5-14.5); RED BLOOD CELL CT 2.98 /CUMM (4.20-5.40)
--- NOTE | 2016-11-25 07:02 | ECHOCARDIOGRAM REPORT ---
JOHNNIE CLEANING Age: 81 : 1935 Gender: F Exam Date: 11/24/2016 08:09 Exam Location: [facility] Ht (in): 60 Wt (lb): 143 BSA: 1.68 BP: 160 / 70 Ordering Physician: JANETH MARTÍNEZ MD Referring Physician: Reilly Kirk MD, PhD Technologist: Margarita Gómez [facility] Room Number: 112 Indications: HEART FAILURE Rhythm: Sinus Technical Quality: technically limited FINDINGS Left Ventricle Small left ventricular size with mild left ventricular hypertrophy. Normal systolic function with no obvious regional wall motion abnormalities. Diastolic filling pattern is consistent with imparied LV relaxation. The ejection fraction is visually estimated at 80 %. Right Ventricle The right ventricle is normal in size and mildly hypokinetic. Right Atrium The right atrium is normal in size. Left Atrium The left atrium is normal in size. The interatrial septum is intact. Mitral Valve The mitral valve is normal in structure and function. There is trace mitral regurgitation. Aortic Valve Structurally normal aortic valve without significant sclerosis or stenosis. There is mild aortic regurgitation. Tricuspid Valve The tricuspid valve is normal in structure and function. There is mild tricuspid regurgitation. Pulmonary artery systolic pressure is severely elevated to 71mmHg. Pulmonic Valve Structurally normal pulmonic valve. There is mild pulmonic regurgitation. Pericardium Normal pericardium without effusion. Left pleural effusion. Great Vessels Normal aortic root dimension. The aortic arch and great vessels are well seen and are normal. CONCLUSIONS 1. Small and possibly underfilled left ventricle. 2. Mild left ventricular hypertrophy. 3. Hyperdynamic EF of 80% with impaired LV relaxation. 4. Mildly hypokinetic right ventricle. 5. Trace mitral regurgitation. 6. Mild tricuspid regurgitation. 7. Mild aortic regurgitation. 8. Mild pulmonic regurgitation. 9. Severe pulmonary hypertension. 10. Small left pleural effusion. Reilly Kirk M.D. (Electronically Signed) Final Date: 25 November 2016 07:01 MEASUREMENTS (Male / Female) Normal Values 2D ECHO LV Diastolic Diameter PLAX 3.5 cm 4.2 - 5.9 / 3.9 - 5.3 cm LV Systolic Diameter PLAX 1.9 cm 2.1 - 4.0 cm LV Fractional Shortening PLAX 45.7 % 25 - 46 % LV Ejection Fraction 2D Teich 78.0 % IVS Diastolic Thickness 1.3 cm LVPW Diastolic Thickness 1.3 cm LV Relative Wall Thickness 0.7 RV Internal Dim ED PLAX 2.7 cm 1.9 - 3.8 cm LVOT Diameter 2.0 cm Aortic Root Diameter 2.9 cm LA Systolic Diameter LX 3.6 cm 3.0 - 4.0 / 2.7 - 3.8 cm LA Volume 24.0 cm 18 - 58 / 22 - 52 cm Ascending Aorta Diameter 2.8 cm DOPPLER AV Peak Velocity 161.0 cm/s AV Peak Gradient 10.4 mmHg AV Mean Velocity 103.0 cm/s AV Mean Gradient 5.0 mmHg AV Velocity Time Integral 29.0 cm LVOT Peak Velocity 110.0 cm/s LVOT Peak Gradient 4.8 mmHg LVOT Mean Velocity 72.9 cm/s LVOT Mean Gradient 2.0 mmHg LVOT Velocity Time Integral 20.1 cm LVOT Stroke Volume 63.1 cm AV Area Cont Eq vti 2.2 cm AV Area Cont Eq pk 2.1 cm MV Peak Velocity 114.0 cm/s MV Peak Gradient 5.2 mmHg MV Mean Velocity 62.5 cm/s MV Mean Gradient 2.0 mmHg Mitral E Point Velocity 53.8 cm/s Mitral A Point Velocity 91.3 cm/s Mitral E to A Ratio 0.6 MV PHT Velocity 71.9 cm/s MV Deceleration [place] 213.0 cm/s MV Pressure Half Time 101.3 ms MV Area PHT 2.2 cm MV Deceleration Time 288.0 ms TR Peak Velocity 408.0 cm/s TR Peak Gradient 66.6 mmHg Right Atrial Pressure 5.0 mmHg Pulmonary Artery Systolic Pressu 71.6 mmHg Right Ventricular Systolic Press 71.6 mmHg PV Peak Velocity 112.0 cm/s PV Peak Gradient 5.0 mmHg PV Mean Velocity 76.4 cm/s PV Mean Gradient 3.0 mmHg PV Velocity Time Integral 19.9 cm LV E' Lateral Velocity 7.5 cm/s Mitral E to LV E' Lateral Ratio 7.2 LV E' Septal Velocity 4.6 cm/s Mitral E to LV E' Septal Ratio 11.8
--- NOTE | 2016-11-25 07:23 | PN- Resident CRCU ---
Subjective HPI/CRCU Issues: I followed up and examined patient today. The patient is resing comfortably in bed, no distress, blood pressure in low range, dobutamine drip running. Patient had passed bright red blood per rectum, mixed with loose formed stool scanty, so was still off IV Heparin. Objective Vital Signs & I&O Last 8 Hrs of Vitals and I&O: Vital Signs Date Time Temp Pulse Resp B/P Pulse O2 O2 Flow FiO2 Ox Delivery Rate 11/25 1415 78 78/38 11/25 1055 76 108/38 11/25 1048 94 Nasal 4.0L Cannula 11/25 0800 91 Nasal 4.0L Cannula 11/25 0800 97.0 80 18 110/40 91 Nasal 4.0L Cannula 11/25 0418 94 Nasal 4.0L Cannula 11/25 0104 80 127/40 11/25 0012 79 99 03/ 0000 98 Nasal 4.0L Cannula 11/25 0000 96.8 94 16 120/46 98 Nasal 4.0L Cannula 11/24 2000 97 Nasal 4.0L Cannula 11/24 1644 94 Nasal 4.0L Cannula 11/24 1600 92 Nasal 4.0L Cannula 11/24 1600 96.5 94 20 120/48 96 Nasal 4.0L Cannula Intake & Output 11/25 1600 06 0800 03/ 0000 Intake Total 201 500 Output Total 20 Balance 181 500 Intake, IV 201 250 Intake, Oral 250 Number 2 Bowel Movements Output, Other 20 Patient 64.41 kg Weight Exam General Appearance: well developed/nourished, no apparent distress, alert, awake , comfortable, obese Other Physical Findings: Head: atraumatic, normal appearance Respiratory: decreased breath sounds b/l Cardiovascular: regular rate/rhythm, normal S1 and S2, no murmurs, rubs or gallops Gastrointestinal: soft, non-tender, positive bowel sounds, cholecystostomy in place at RUQ Extremities: no edema over bilateral lower extremities Nutrition Nutrition: P.O. diet Current Medications: Current Medications Sig/Kobi Start time Last Medication Dose Route Stop Time Status Admin Acetaminophen 650 MG Q6P PRN 11/14 1615 AC 11/24 PO 0606 Acetaminophen 1,000 MG Q6P PRN 11/14 1615 AC 11/21 IV 0854 Allopurinol 50 MG DAILY 11/15 1000 AC 11/25 PO 1054 Baclofen 2.5 MG BID 11/14 2200 AC 11/25 PO 1054 Cholecalciferol 1,000 IU DAILY 11/15 1000 AC 11/25 PO 1054 Dextrose/Sodium 1,000 ML Q10H 11/25 1415 AC Chloride IV Dobutamine HCl 250 MG Q13H 11/25 1415 AC 11/25 Dextrose/Water 250 ML IV 1415 Dobutamine HCl 250 MG Q13H 11/23 1000 DC 11/25 Dextrose/Water 250 ML IV 0104 Ferrous Sulfate 325 MG BID 11/14 2200 AC 11/25 PO 1054 Gabapentin 100 MG DAILY 11/14 1600 AC 11/25 PO 1054 Heparin Sodium 25,000 UNIT Q24H 11/25 1215 AC 11/25 (Porcine) IV 1224 Sodium Chloride 500 ML Lactobacillus 1 CAP DAILY 11/15 1000 AC 11/25 Acidophilus PO 1054 Levothyroxine Sodium 0.05 MG DAILY AC 11/15 0700 AC 11/25 PO 0614 Melatonin 3 MG AT BEDTIME PRN 11/19 1545 AC PO Morphine Sulfate 1 MG Q4 HRS NEEDED PRN 11/21 1200 AC IV Multivitamins 1 TAB DAILY 11/15 1000 AC 11/25 Therapeutic PO 1054 Nifedipine 30 MG DAILY 11/21 0515 DC 11/25 PO 1055 Omeprazole 40 MG DAILY AC 11/20 0954 AC 11/25 PO 0613 Piperacillin Sod/ 2.25 GM Q8H 11/23 1130 DC 11/25 Tazobactam Sod IV 1103 Sodium Chloride 50 ML Potassium Chloride 20 MEQ ONCE ONE 11/25 1345 DC / PO 11/25 1346 1409 Sodium Chloride 250 ML BOLUS ONE 11/25 1415 DC IV 11/25 1514 Sodium Chloride 250 ML BOLUS ONE 11/25 1330 DC 03/06 IV / 1429 1333 Sodium Chloride 500 ML BOLUS ONE 11/25 1215 DC /06 IV / 1314 1218 CXR Findings: IMPRESSION: Small bilateral pleural effusions, inadequate for safe thoracentesis. DICTATED BY: GARY DAVIS MD DATE/TIME DICTATED:11/25/161512 BALLAST INSPECTOR:BAO DATE/TIME TRANSCRIBED:11/25/161512 Impression/Plan Impression/Problem List Impression: 81 y/o F with PMHx of spinal cord stroke c/b quadriplegia, DVT and PE on Eliquis , renal artery stenosis s/p stent placement, hemoglobin SC trait, severe HTN and CKD who presented with acute cholecystitis s/p cholecystectomy with a hospital course complicated by acute hypoxemic and hypercarbic respiratory failure, LILLIE and ABLA. She is currently being managed in the ICU for the following issues: Respiratory: #Acute hypoxemic and hypercapnic respiratory failure: Respiratory status has improved with BiPAP and IV dobutamine drip. BiPAP was discontinued on Friday and oxygen is being delivered by nasal cannula. * Continue to provide supplemental oxygen as needed to keep SpO2 > 92%. * Ultrasound today did not reveal much effusion to tap, so was canceled. Infectious Diseases: #Presumed acute cholecystitis: S/p cholecystostomy tube placement. Remains afebrile but with persistent leukocytosis on day 7 of Zosyn. Bile cultures are negative. Repeat CT Abdomen Pelvis (11/20/16) negative for any other intraabdominal process. * ID following. Appreciate their recs. * Since the patient is afebrile and has received seven days of Zosyn, it has been stopped per ID. Cardiovascular: #Acute diastolic CHF: CXR with bilateral pleural effusions consistent with CHF. Patient is very pre-load dependent given her history of severe pulmonary HTN. * Cardiology following. Appreciate their recs. * Patient was on IV dobutamine drip this AM, which was stopped per cardiology's suggestion and was for hypertension/changes in heart rate. Her blood pressure did not maintain without dobutamine despite giving IV fluids boluses, sought consultation with Dr. Kirk, dobutamine drip was restarted. (SEE TODAY'S EVENT NOTE) * Repeat ECHO shows LVEF about 80%. #Severe HTN: History of uncontrolled HTN. * She received her long acting PO nifedipine about the time Dobutamine was discontinued. It has been discontinued per Dr Kirk for now, due to hypotension. (SEE TODAY'S EVENT NOTE) Hematology: #ABLA: Episode of BRBPR accompanied by drop in H/H from 9.4/28.6 this AM to 8.2/ 25.2 this morning. Heparin IV was on hold, but was restarted after consulting with cardiology. * Monitor off IV heparin. * Repeat CBC at 1630 hrs. * Continue to monitor H/H and transfuse as needed to keep Hgb > 7. #Prior DVT/pulmonary emboli: S/p IVC filter placement in 2013. Metabolic: #LILLIE: Likely presents ATN secondary to sepsis. Cr stable at 2.9. * Nephrology following. Appreciate their recs. * Avoid bicarbonate unless pH < 7.20 despite aggressive ventilation. * No indication for Lasix or dialysis at this time. * Continue to monitor lytes and kidney function. #Hypothyroidism: * Continue prior to admission 50 mcg PO daily. Alimentary: Heart Healthy Diet - Mechanical soft/ground and thin liquids Neurological: Improving. More awake and alert today. DVT/Prophylaxis: mechanical Code Status: Full Code Problem List: 1. Sepsis 2. Acute hypoxemic respiratory failure 3. Acute diastolic CHF (congestive heart failure) 4. Hypothyroidism 5. Bright red blood per rectum 6. Acute cholecystitis Pain Ratin Tomorrow's Labs & Rationales: ICU lab bundle, CBC Plan DVT/Prophylaxis: mechanical Code Status: Full Code
[2016-11-25 08:00] VITALS: BP 110/40
--- NOTE | 2016-11-25 08:03 | PN- Pulmonary ---
Subjective HPI/Critical Care Issues: Patient is awake alert comfortable on nasal oxygen she continues on dobutamine Objective Current Medications: Current Medications Sig/Kobi Start time Last Medication Dose Route Stop Time Status Admin Acetaminophen 650 MG Q6P PRN 11/14 1615 AC 11/24 PO 0606 Acetaminophen 1,000 MG Q6P PRN 11/14 1615 AC 11/21 IV 0854 Allopurinol 50 MG DAILY 11/15 1000 AC 11/24 PO 0946 Baclofen 2.5 MG BID 11/14 2200 AC 11/24 PO 2115 Cholecalciferol 1,000 IU DAILY 11/15 1000 AC 11/24 PO 0946 Dobutamine HCl 250 MG Q13H 11/23 1000 AC 11/25 Dextrose/Water 250 ML IV 010 Ferrous Sulfate 325 MG BID 11/14 2200 AC 11/24 PO 2115 Gabapentin 100 MG DAILY 11/14 1600 AC 11/24 PO 0946 Lactobacillus 1 CAP DAILY 11/15 1000 AC 11/24 Acidophilus PO 0946 Levothyroxine Sodium 0.05 MG DAILY AC 11/15 0700 AC 11/25 PO 0614 Melatonin 3 MG AT BEDTIME PRN 11/19 1545 AC PO Morphine Sulfate 1 MG Q4 HRS NEEDED PRN 11/21 1200 AC IV Multivitamins 1 TAB DAILY 11/15 1000 AC 11/24 Therapeutic PO 0946 Nifedipine 30 MG DAILY 11/21 0515 AC 11/24 PO 0946 Omeprazole 40 MG DAILY AC 11/20 0954 AC 11/25 PO 0613 Piperacillin Sod/ 2.25 GM Q8H 11/23 1130 AC 11/25 Tazobactam Sod IV 0337 Sodium Chloride 50 ML Vital Signs & I&O Last 24 Hrs of Vitals and I&O: Vital Signs Date Time Temp Pulse Resp B/P Pulse O2 O2 Flow FiO2 Ox Delivery Rate 11/25 0418 94 Nasal 4.0L Cannula 11/25 0104 80 127/40 11/25 0012 79 99 11/25 0000 98 Nasal 4.0L Cannula 11/25 0000 96.8 94 16 120/46 98 Nasal 4.0L Cannula 11/24 2000 97 Nasal 4.0L Cannula 11/24 1644 94 Nasal 4.0L Cannula 11/24 1600 92 Nasal 4.0L Cannula 11/24 1600 96.5 94 20 120/48 96 Nasal 4.0L Cannula 03/05 1200 93 Nasal 4.0L Cannula 11/24 0846 93 92 11/24 0835 95 Nasal 4.0L Cannula Intake & Output 11/25 1600 11/25 0800 11/25 0000 Intake Total 201 500 Output Total 20 Balance 181 500 Intake, IV 201 250 Intake, Oral 250 Number 2 Bowel Movements Output, Other 20 Patient 142 lb Weight Oxygen saturation 4 L 94% exam for chest decreased breath sounds at the bases cardiac exam shows regular S1 and S2 without murmurs Impression/Plan Impression/Plan Impression/Plan: 81-year-old woman with multiple medical problems being conservatively treated for acute cholecystitis has developed acute on chronic hypercapnic history failure secondary to increasing effusions and atelectasis in conjunction with opiate administration. Patient has had a degree of hypercarbia in the past however now has acute kidney injury with renal failure compromising renal compensation for her worsening hypercarbia. Respiratory status is markedly improved patient no longer requires BiPAP. Await diagnostic and therapeutic thoracentesis today of right pleural effusion Recommendations: Can use BiPAP when necessary respiratory status appears improved. Await thoracentesis tomorrow. She requires continued anticoagulation in view of recent pulmonary embolism which should be stopped at least 4 hours prior to her anticipated thoracentesis tomorrow. Mobilize patient out of bed with IST and pulmonary toilet to assist with atelectasis
--- NOTE | 2016-11-25 08:25 | NUR ---
RECEIVED PATIENT AT 0800 A&OX3, VERY SOFT SPOKEN AND PLEASANT. QUADRAPELIGIC AT BASELINE. SOME SMALL MOVEMENT LEFT TO RIGHT ARM. +1 EDEMA NOTED TO BILATERAL HANDS AND FOREARMS. OTHERWISE SKIN INTACT. PATIENT IS BEDBOUND AT BASELINE. TURNED AND REPOSITIONED FREQUENTLY. SKIN INTACT. NSR ON THE PLANNING LEAD 70S-80S, PSE=367L PER MANUAL AND AUTOCUFF. DOBUTAMINE GTT RUNNING THROUGH #22 TO RF PLACED 11/22/16 AT 18.9 MLS/HR OR 5 MCG/KG/MIN. IV SITE IS PATENT/CDI. PATIENT DENIES CHEST PAIN. ON 4 L NC. CLEAR BREATH SOUNDS AUSCULTATED IN THE UPPER LUNGS AND DIMINISHED TO THE LOWER LOBES. PATIENT DENIES SOB. O2 SAT 94-95%. PENDING THORACENTESIS TODAY TO OCCUR IN IR. HEPARIN GTT STOPPED YESTERDAY 11/24. ABDOMEN IS SOFT/DISTENDED/NONTENDER WITH POSITIVE BOWEL SOUNDS. PATIENT IS INCONTINENT OF STOOL/URINE. T-TUBE NOTED TO R FLANK/ABDOMEN. PLACED 11/18. SITE CDI. BROWN/GREEN DRAINAGE FROM TUBE. TUBE FLUSHED WITH 10 CC NORMAL SALINE. ORIENTED PATIENT AND FAMILY TO PLAN OF CARE AND DAY. GIVEN SUPPORT AND EMOTIONAL REASSURANCE.
--- NOTE | 2016-11-25 10:13 | PN- Cardiology ---
Subjective Subjective: * Patient is lying flat. She has some intermittent shortness of breath. No complaints of chest discomfort or lightheadedness. * Sinus rhythm * Hyperdynamic EF with severe pulmonary hypertension on echo * TFT's consistent with hypothyroidism Objective Vital Signs and I&Os Vital Signs Date Time Temp Pulse Resp B/P Pulse O2 O2 Flow FiO2 Ox Delivery Rate 11/26 799 91 Nasal 4.0L Cannula 11/25 08 97.0 80 18 110/40 91 Nasal 4.0L Cannula 11/25 0418 94 Nasal 4.0L Cannula 11/25 0104 80 127/40 11/25 0012 79 99 / 0000 98 Nasal 4.0L Cannula 11/25 0000 96.8 94 16 120/46 98 Nasal 4.0L Cannula 11/24 2000 97 Nasal 4.0L Cannula 11/24 1644 94 Nasal 4.0L Cannula 11/24 1600 92 Nasal 4.0L Cannula 11/24 1600 96.5 94 20 120/48 96 Nasal 4.0L Cannula 11/24 1200 93 Nasal 4.0L Cannula Intake & Output 11/25 1600 11/25 0800 / 0000 03/05 1600 11/24 0800 03/05 0000 Intake Total 201 500 581.2 705.5 650.2 Output Total 20 50 40 Balance 181 500 581.2 655.5 610.2 Intake, IV 201 250 201.2 225.5 350.2 Intake, Oral 250 380 480 300 Number 2 1 0 1 Bowel Movements Output, Other 20 50 40 Patient 142 lb 143 lb Weight Physical Exam: General: WD/ WN female in NAD; awake and responsive Neck: no JVD Heart: RRR w/o murmur Lungs: clear anteriorly Abdomen: soft, NT, +ve bowel sounds Extremities: no edema Assessment/Plan Assessment/Plan * This patient has improved renal function. Her echo showed a small and possibly underfilled left ventricle which goes along with her prior transient hypotension and increased creatinine that may have been related to a pre-renal state. In the setting of her severe pulmonary hypertension and mildly decreased RV function she is likely preload dependent and will not tolerate rapid or aggressive diuresis. She has improved with dobutamine to increase RV contractility. We will stop this medication at this point in time. * Agree with thyroid supplementation. Continue telemetry? Yes
--- NOTE | 2016-11-25 10:38 | PN- Infect Dx ---
Subjective Subjective: Afebrile. She denies any complaints. She was noted to have bright red blood per rectum and epistaxis while on Heparin, with an elevated PTT. Objective Last 24 Hrs of Vital Signs/I&O Vital Signs Date Time Temp Pulse Resp B/P Pulse O2 O2 Flow FiO2 Ox Delivery Rate 11/26 799 91 Nasal 4.0L Cannula 11/26 799 97.0 80 18 110/40 91 Nasal 4.0L Cannula 11/25 0418 94 Nasal 4.0L Cannula 11/25 0104 80 127/40 11/25 0012 79 99 11/25 0000 98 Nasal 4.0L Cannula 11/25 0000 96.8 94 16 120/46 98 Nasal 4.0L Cannula 11/24 2000 97 Nasal 4.0L Cannula 11/24 1644 94 Nasal 4.0L Cannula 11/24 1600 92 Nasal 4.0L Cannula 11/24 1600 96.5 94 20 120/48 96 Nasal 4.0L Cannula 11/24 1200 93 Nasal 4.0L Cannula Intake & Output 11/25 1600 11/25 0811/25 0000 Intake Total 201 500 Output Total 20 Balance 181 500 Intake, IV 201 250 Intake, Oral 250 Number 2 Bowel Movements Output, Other 20 Patient 142 lb Weight Physical Exam Other Physical Findings: She appears comfortable in no acute distress on nasal oxygen Lungs decreased breath sounds both bases Heart regular rhythm with no murmur Abdomen distended, no obvious tenderness, positive bowel sounds; cholecystostomy tube in place with 50 mL output yesterday Extremities no cyanosis, clubbing or edema Results Last 24 Hours of Lab Results: Laboratory Tests 11/25 11/24 0400 1540 Chemistry Sodium (137 - 145 mmol/L) 135 L Potassium (3.5 - 5.1 mmol/L) 3.6 Chloride (98 - 107 mmol/L) 103 Carbon Dioxide (22 - 30 mmol/L) 23 Anion Gap (5 - 16) 9 BUN (7 - 17 mg/dL) 44 H Creatinine (0.5 - 1.0 mg/dL) 2.9 H Estimated GFR (>60 ml/min) 16 L Glucose (65 - 99 mg/dL) 94 Calcium (8.4 - 10.2 mg/dL) 8.8 Phosphorus (2.5 - 4.5 mg/dL) 4.6 H Magnesium (1.6 - 2.3 mg/dL) 1.8 Total Bilirubin (0.2 - 1.3 mg/dL) 0.4 AST (14 - 36 U/L) 50 H ALT (9 - 52 U/L) 39 Albumin (3.5 - 5.0 g/dL) 2.3 L Coagulation PT (9.4 - 12.5 SEC) 12.0 INR (0.90 - 1.19) 1.14 Hematology CBC w Diff MAN DIFF ORDERED NO MAN DIFF REQ WBC (4.8 - 10.8 /CUMM) 21.0 H 19.1 H RBC (4.20 - 5.40 /CUMM) 2.98 L 3.05 L Hgb (12.0 - 16.0 G/DL) 8.2 L 8.5 L Hct (37 - 47 %) 25.2 L 25.8 L MCV (81.0 - 99.0 FL) 84.6 84.6 MCH (27.0 - 31.0 PG) 27.6 27.9 RDW (11.5 - 14.5 %) 21.9 H 21.3 H Plt Count (130 - 400 /CUMM) 325 322 MPV (7.4 - 10.4 FL) 7.6 7.9 Segmented Neutrophils (42.2 - 75.2 %) 85 H Band Neutrophils (0.0 - 5.0 %) 1 Lymphocytes (20.5 - 51.1 %) 10 L Monocytes (1.7 - 9.3 %) 3 Eosinophils (0 - 5.0 %) 1 Nucleated RBCs (0.0 - 0.0 /100WBC) 57 H Platelet Estimate (ADEQUATE) ADEQUATE Polychromasia 1+ Hypochromic-Microcytic 1+ Poikilocytosis 3+ Target Cells 1+ Ovalocytes 1+ Stomatocytes FEW Patsy Cells RARE Elliptocytes 1+ Schistocytes RARE PUBS MCHC (33.0 - 37.0 G/DL) 32.6 L 33.0 Other Body Source Fld Total RBCs Counted (%) 100 Last 24 Hours of Jun Results: No recent cultures Assessment/Plan Impression: Stable, with respiratory status improved on Dobutamine, which is being discontinued today. She remains afebrile but her white blood cell count remains elevated, without significant currency exchange specialist the past 4 days despite now 9 days of Zosyn for presumed acute cholecystitis now 1 week status post placement of a cholecystostomy tube, with culture of the bile negative and with repeat CT scan negative for any other intra-abdominal process. The etiology of her persistently elevated white blood cell count is unclear and could be secondary to a pulmonary process, but the need for continuing antibiotics at this point is unclear. She is scheduled for a thoracentesis later today. Suggestion: 1. Await thoracentesis later today 2. Discontinue Zosyn if pleural fluid does not suggest empyema
--- NOTE | 2016-11-25 11:34 | PN- Nephrology ---
Assessment/Plan Assessment: LILLIE - Clinical situation and labs c/w ATN from sepsis. Urine sediment bland ( some WBC's in the setting of UTI). Creatinine very slowly improving. Anasarca - low albumin - likely negative acute phase reactant and nutritional. Cannot be explained by nephrosis or liver disease (at least based on imaging). Hypercarbic respiratory failure - improved clinically. Cholecystitis - s/p Perc will tube. UTI - on treatment. Leukocytosis - Remains elevated. ?Pulm source. Suggestion: -Cont to monitor BMP -No clear need for diuretics given TTE findings -No indication for dialysis at this time Will see PRN Please call [phone] with ?'s or if any significant change in clinical status Subjective Subjective: SCr down to 2.9 BP remains marginal No new positive cultures; afebrile Noted on TTE yesterday to have normal LV function (noted to be underfilled) although severe pulm HTN with mildly hypokinetic RV Dobutamine had been started on 11/23 and is now stopped WBC stable at 21 Objective Vital Signs and I&Os Vital Signs Date Time Temp Pulse Resp B/P Pulse O2 O2 Flow FiO2 Ox Delivery Rate 11/25 1055 76 108/38 11/25 1048 94 Nasal 4.0L Cannula 11/25 0800 91 Nasal 4.0L Cannula 11/25 0800 97.0 80 18 110/40 91 Nasal 4.0L Cannula 11/25 0418 94 Nasal 4.0L Cannula 11/25 0104 80 127/40 / 0012 79 99 03/06 0000 98 Nasal 4.0L Cannula / 0000 96.8 94 16 120/46 98 Nasal 4.0L Cannula 11/24 2000 97 Nasal 4.0L Cannula 11/24 1644 94 Nasal 4.0L Cannula 11/24 1600 92 Nasal 4.0L Cannula 11/24 1600 96.5 94 20 120/48 96 Nasal 4.0L Cannula 11/24 1200 93 Nasal 4.0L Cannula Intake & Output 11/25 1600 11/25 0400 11/24 1600 11/24 0400 11/23 1600 11/23 0400 Intake Total 769 351 8728.7 650.2 743.4 704.5 Output Total 20 50 40 50 50 Balance 228 571 5102.7 610.2 693.4 654.5 Intake, IV 201 250 426.7 350.2 743.4 704.5 Intake, Oral 250 860 300 0 0 Number 2 1 1 0 Bowel Movements Output, Other 20 50 40 50 50 Patient 142 lb 143 lb 145 lb 138 lb Weight Physical Exam: Gen - somewhat improved appearance HEENT - supple CV - RRR Chest - clear anteriorly Abd - soft, nontender Ext - no significant edema Neuro - more alert Current Medications: Current Medications Sig/Kobi Start time Last Medication Dose Route Stop Time Status Admin Acetaminophen 650 MG Q6P PRN 11/14 1615 AC 11/24 PO 0606 Acetaminophen 1,000 MG Q6P PRN 11/14 1615 AC 11/21 IV 0854 Allopurinol 50 MG DAILY 11/15 1000 AC 11/25 PO 1054 Baclofen 2.5 MG BID 11/14 2200 AC 11/25 PO 1054 Cholecalciferol 1,000 IU DAILY 11/15 1000 AC 11/25 PO 1054 Dobutamine HCl 250 MG Q13H 11/23 1000 DC 11/25 Dextrose/Water 250 ML IV 0104 Ferrous Sulfate 325 MG BID 11/14 2200 AC 11/25 PO 1054 Gabapentin 100 MG DAILY 11/14 1600 AC 11/25 PO 1054 Lactobacillus 1 CAP DAILY 11/15 1000 AC 11/25 Acidophilus PO 1054 Levothyroxine Sodium 0.05 MG DAILY AC 11/15 0700 AC 11/25 PO 0614 Melatonin 3 MG AT BEDTIME PRN 11/19 1545 AC PO Morphine Sulfate 1 MG Q4 HRS NEEDED PRN 11/21 1200 AC IV Multivitamins 1 TAB DAILY 11/15 1000 AC 11/25 Therapeutic PO 1054 Nifedipine 30 MG DAILY 11/21 0515 AC 11/25 PO 1055 Omeprazole 40 MG DAILY AC 11/20 0954 AC 11/25 PO 0613 Piperacillin Sod/ 2.25 GM Q8H 11/23 1130 AC 11/25 Tazobactam Sod IV 1103 Sodium Chloride 50 ML Results Pertinent Lab Results: Laboratory Tests 11/25 11/24 0400 1540 Chemistry Sodium (137 - 145 mmol/L) 135 L Potassium (3.5 - 5.1 mmol/L) 3.6 Chloride (98 - 107 mmol/L) 103 Carbon Dioxide (22 - 30 mmol/L) 23 Anion Gap (5 - 16) 9 BUN (7 - 17 mg/dL) 44 H Creatinine (0.5 - 1.0 mg/dL) 2.9 H Estimated GFR (>60 ml/min) 16 L Glucose (65 - 99 mg/dL) 94 Calcium (8.4 - 10.2 mg/dL) 8.8 Phosphorus (2.5 - 4.5 mg/dL) 4.6 H Magnesium (1.6 - 2.3 mg/dL) 1.8 Total Bilirubin (0.2 - 1.3 mg/dL) 0.4 AST (14 - 36 U/L) 50 H ALT (9 - 52 U/L) 39 Albumin (3.5 - 5.0 g/dL) 2.3 L Coagulation PT (9.4 - 12.5 SEC) 12.0 INR (0.90 - 1.19) 1.14 Hematology CBC w Diff MAN DIFF ORDERED NO MAN DIFF REQ WBC (4.8 - 10.8 /CUMM) 21.0 H 19.1 H RBC (4.20 - 5.40 /CUMM) 2.98 L 3.05 L Hgb (12.0 - 16.0 G/DL) 8.2 L 8.5 L Hct (37 - 47 %) 25.2 L 25.8 L MCV (81.0 - 99.0 FL) 84.6 84.6 MCH (27.0 - 31.0 PG) 27.6 27.9 RDW (11.5 - 14.5 %) 21.9 H 21.3 H Plt Count (130 - 400 /CUMM) 325 322 MPV (7.4 - 10.4 FL) 7.6 7.9 Segmented Neutrophils (42.2 - 75.2 %) 85 H Band Neutrophils (0.0 - 5.0 %) 1 Lymphocytes (20.5 - 51.1 %) 10 L Monocytes (1.7 - 9.3 %) 3 Eosinophils (0 - 5.0 %) 1 Nucleated RBCs (0.0 - 0.0 /100WBC) 57 H Platelet Estimate (ADEQUATE) ADEQUATE Polychromasia 1+ Hypochromic-Microcytic 1+ Poikilocytosis 3+ Target Cells 1+ Ovalocytes 1+ Stomatocytes FEW Burkett Cells RARE Elliptocytes 1+ Schistocytes RARE PUBS MCHC (33.0 - 37.0 G/DL) 32.6 L 33.0 Other Body Source Fld Total RBCs Counted (%) 100 0305 03/04 0410 2230 Chemistry Sodium (137 - 145 mmol/L) 136 L Potassium (3.5 - 5.1 mmol/L) 3.1 L Chloride (98 - 107 mmol/L) 106 Carbon Dioxide (22 - 30 mmol/L) 20 L Anion Gap (5 - 16) 10 BUN (7 - 17 mg/dL) 49 H Creatinine (0.5 - 1.0 mg/dL) 3.1 H Estimated GFR (>60 ml/min) 14 L Glucose (65 - 99 mg/dL) 65 Calcium (8.4 - 10.2 mg/dL) 8.9 Phosphorus (2.5 - 4.5 mg/dL) 3.6 Magnesium (1.6 - 2.3 mg/dL) 1.9 Total Bilirubin (0.2 - 1.3 mg/dL) 0.7 AST (14 - 36 U/L) 68 H ALT (9 - 52 U/L) 39 Albumin (3.5 - 5.0 g/dL) 2.4 L Coagulation PT (9.4 - 12.5 SEC) 12.3 INR (0.90 - 1.19) 1.17 APTT (25 - 37 SEC) 59 H Cancelled Fibrinogen Activity (200 - 393 MG/DL) 447 H Fibrin Degrad Products (< 10 ug/ml) >10 but < 40 ug/ml H Hematology CBC w Diff MAN DIFF ORDERED WBC (4.8 - 10.8 /CUMM) 23.4 H RBC (4.20 - 5.40 /CUMM) 3.12 L Hgb (12.0 - 16.0 G/DL) 8.7 L Hct (37 - 47 %) 26.2 L MCV (81.0 - 99.0 FL) 83.8 MCH (27.0 - 31.0 PG) 27.8 RDW (11.5 - 14.5 %) 20.9 H Plt Count (130 - 400 /CUMM) 346 MPV (7.4 - 10.4 FL) 8.0 Segmented Neutrophils (42.2 - 75.2 %) 88 H Band Neutrophils (0.0 - 5.0 %) 2 Lymphocytes (20.5 - 51.1 %) 5 L Monocytes (1.7 - 9.3 %) 2 Metamyelocytes (0.0 - 1.0 %) 2 H Nucleated RBCs (0.0 - 0.0 /100WBC) 37 H Platelet Estimate (ADEQUATE) ADEQUATE Polychromasia 1+ Hypochromic-Microcytic 1+ Poikilocytosis 3+ Anisocytosis 1+ Macrocytic Cells 1+ Target Cells 3+ PUBS MCHC (33.0 - 37.0 G/DL) 33.1 0304 11/23 2014 1530 Coagulation APTT (25 - 37 SEC) > 120 *H Hematology CBC w Diff MAN DIFF ORDERED WBC (4.8 - 10.8 /CUMM) 23.2 H RBC (4.20 - 5.40 /CUMM) 3.15 L Hgb (12.0 - 16.0 G/DL) 8.7 L Hct (37 - 47 %) 26.4 L MCV (81.0 - 99.0 FL) 83.8 MCH (27.0 - 31.0 PG) 27.5 RDW (11.5 - 14.5 %) 21.0 H Plt Count (130 - 400 /CUMM) 340 MPV (7.4 - 10.4 FL) 7.9 Segmented Neutrophils (42.2 - 75.2 %) 84 H Band Neutrophils (0.0 - 5.0 %) 3 Lymphocytes (20.5 - 51.1 %) 5 L Monocytes (1.7 - 9.3 %) 4 Metamyelocytes (0.0 - 1.0 %) 4 H Nucleated RBCs (0.0 - 0.0 /100WBC) 44 H Platelet Estimate (ADEQUATE) VERIFIED BY SMEAR Polychromasia 1+ Hypochromic-Microcytic 1+ Poikilocytosis 2+ Anisocytosis 1+ Target Cells 2+ PUBS MCHC (33.0 - 37.0 G/DL) 32.9 L 11/23 11/23 11/23 1445 1000 0817 Blood Gas pH (7.35 - 7.45 PH) 7.37 7.40 pCO2 (35 - 45 TORR) 36 34 L pO2 (80 - 100 TORR) 58 L 63 L HCO3 (21 - 28 MEQ/L) 21 21 ABG O2 Sat (Measured) (>96.0 %) 89.0 L 92.0 L P-50 (Temp Corrected) N N Carboxyhemoglobin (1.5 - 5.0 %) 0.4 L 0.1 L O2 Concentration % 4LPM 40% Respiration Rate (BPM) 28 O2 Delivery Method NC BIPAP Vent Mode ST Expiratory Pressure (CM H2O P) 6 Inspiratory Pressure (CM H2O P) 16 Coagulation APTT (25 - 37 SEC) > 120 *H Miscellaneous Phlebotomy Draw Site RIGHT RADIAL RIGHT BRACHIAL 11/23 11/23 11/23 0700 0700 0422 Chemistry Sodium (137 - 145 mmol/L) 139 Potassium (3.5 - 5.1 mmol/L) 3.5 Chloride (98 - 107 mmol/L) 107 Carbon Dioxide (22 - 30 mmol/L) 19 L Anion Gap (5 - 16) 14 BUN (7 - 17 mg/dL) 53 H Creatinine (0.5 - 1.0 mg/dL) 3.1 H Estimated GFR (>60 ml/min) 14 L Glucose (65 - 99 mg/dL) 89 Calcium (8.4 - 10.2 mg/dL) 9.5 Phosphorus (2.5 - 4.5 mg/dL) 4.0 Magnesium (1.6 - 2.3 mg/dL) 2.2 Total Bilirubin (0.2 - 1.3 mg/dL) 0.7 AST (14 - 36 U/L) 44 H ALT (9 - 52 U/L) 24 Albumin (3.5 - 5.0 g/dL) 2.5 L Coagulation PT (9.4 - 12.5 SEC) 13.7 H INR (0.90 - 1.19) 1.31 H Hematology CBC w Diff MAN DIFF ORDERED WBC (4.8 - 10.8 /CUMM) 24.1 H RBC (4.20 - 5.40 /CUMM) 3.40 L Hgb (12.0 - 16.0 G/DL) 9.4 L Hct (37 - 47 %) 28.6 L MCV (81.0 - 99.0 FL) 84.0 MCH (27.0 - 31.0 PG) 27.8 RDW (11.5 - 14.5 %) 21.7 H Plt Count (130 - 400 /CUMM) 363 MPV (7.4 - 10.4 FL) 8.6 Segmented Neutrophils (42.2 - 75.2 %) 86 H Band Neutrophils (0.0 - 5.0 %) 4 Lymphocytes (20.5 - 51.1 %) 1 L Monocytes (1.7 - 9.3 %) 7 Metamyelocytes (0.0 - 1.0 %) 2 H Nucleated RBCs (0.0 - 0.0 /100WBC) 29 H Platelet Estimate (ADEQUATE) ADEQUATE Polychromasia 1+ Hypochromic-Microcytic 1+ Poikilocytosis 2+ Target Cells 1+ Ovalocytes 1+ Patsy Cells RARE Elliptocytes FEW Schistocytes RARE PUBS MCHC (33.0 - 37.0 G/DL) 33.0 Other Body Source Fluid WBC Cancelled Fld Total RBCs Counted (%) Cancelled 100 Fluid Glucose Cancelled Fluid Total Protein Cancelled Fluid Albumin Cancelled Fluid LDH Cancelled 11/23 11/22 11/22 11/22 0022 2137 1500 1203 Blood Gas pH (7.35 - 7.45 PH) 7.24 *L pCO2 (35 - 45 TORR) 53 H pO2 (80 - 100 TORR) 57 L HCO3 (21 - 28 MEQ/L) 23 ABG O2 Sat (Measured) (>96.0 %) 91.0 L P-50 (Temp Corrected) YES Carboxyhemoglobin (1.5 - 5.0 %) 1.1 L O2 Concentration % 60% Temperature (97.0 - 100.0 FARH) 97.5 Respiration Rate (BPM) 24 O2 Delivery Method BIPAP Vent Mode ST Expiratory Pressure (CM H2O P) 4 Inspiratory Pressure (CM H2O P) 14 Chemistry Sodium (137 - 145 mmol/L) 140 Potassium (3.5 - 5.1 mmol/L) 4.1 Chloride (98 - 107 mmol/L) 104 Carbon Dioxide (22 - 30 mmol/L) 23 Anion Gap (5 - 16) 13 BUN (7 - 17 mg/dL) 54 H Creatinine (0.5 - 1.0 mg/dL) 3.2 H Estimated GFR (>60 ml/min) 14 L Glucose (65 - 99 mg/dL) 97 Calcium (8.4 - 10.2 mg/dL) 8.8 Phosphorus (2.5 - 4.5 mg/dL) 4.8 H Magnesium (1.6 - 2.3 mg/dL) 2.2 1.4 L Total Bilirubin (0.2 - 1.3 mg/dL) 0.6 AST (14 - 36 U/L) 36 ALT (9 - 52 U/L) 23 Albumin (3.5 - 5.0 g/dL) 2.8 L TSH (0.270 - 4.200 uIU/mL) 5.000 H Free T4 (0.85 - 1.93 ng/dL) 0.51 L Coagulation APTT (25 - 37 SEC) > 120 *H Miscellaneous Phlebotomy Draw Site RIGHT RADIAL Imaging/Other Studies: TTE CONCLUSIONS 1. Small and possibly underfilled left ventricle. 2. Mild left ventricular hypertrophy. 3. Hyperdynamic EF of 80% with impaired LV relaxation. 4. Mildly hypokinetic right ventricle. 5. Trace mitral regurgitation. 6. Mild tricuspid regurgitation. 7. Mild aortic regurgitation. 8. Mild pulmonic regurgitation. 9. Severe pulmonary hypertension. 10. Small left pleural effusion.
--- NOTE | 2016-11-25 11:39 | NUR ---
INTERVENTIONAL RADIOLOGY WAS AT THE BEDSIDE. ULTRASOUND DONE OF BACK/BILATERAL LUNGS, NOT ENOUGH FLUID ASSESSED FOR TAPPING. DAUGHTER, JAYASHREE CONSENTED AND UPDATED/INFORMED. PATIENT CLEANED UP AND TURNED/REPOSITIONED AFTER PROCEDURE. SOME SMALL YOSELYN BLOOD MIXED WITH STOOL NOTED. DR. LIGHT AWARE AND IN TO RECTALLY ASSESS PATIENT. INTERNAL HEMMORROIDS NOTED. TO HOLD STARTING IV HEPARIN AT THIS TIME. POSSIBLE CONSULT W/ GI. TO REORDER FOOD. PATIENT MADE TELEMETRY PER DR. LIGHT AND DOBUTAMINE D/C'D PER MD ORDER. PATIENT IS COMFORTABLE. VITALS STABLE. SAFETY MAINTAINED.
--- NOTE | 2016-11-25 12:12 | Event Note ---
Event Note Event Note: Dobutamine stopped 1 hour ago for cardiology. Blood pressure is 88/40 with heart rate 68, patient is asymptomatic. Patient had received morning dose of nifedipine extended release. ------ Dr. Kirk was consulted over phone and informed about the status. He suggested to continue holding off dobutamine, and giving 500 mL bolus of normal saline. If her systolic blood pressure comes above 90, then continue regular medications only, and watch her off Dobutamine. Also, he mentioned that anticoagulation needs to be restarted, so IV heparin without bolus has been reordered. Sanchez catheter placed for strict I/O monitoring. ------ Dr Walton from gastroenterology service was consulted regarding patient's bright red blood per rectum since 2 days, which has not been dropping her h/h significantly, and her drop in BP also does not seem to be due to the bleeding per Dr Walton. He mentioned that he had spoken to the patient's daughters earlier at length about the plan for gastroenterology service and has beeb mentioned in his last consult note. Unless the patient is bleeding heavily which is hemodynamically significant, or dropping her H&H, she could go for the anticoagulation. He asked to be called if there is a significant change in status, significant change in h/h or if she is bleeding profusely via GI tract. Update: 1410: Patient's BP is 77/38, lower than what it was when Dobutamine was taken off, despite 750ml of IV NS bolus (broken as 500ml, 250ml). Dr Kirk was contacted and he suggested to give one more 250ml if IV bolus, but also increase basal fluid to 100ml/hr, and also restart Dobutamine drip. Keep monitoring vitals closely. Suggestions ordered immediately. I examined the patient immediately after the phone conversation with Dr Kirk. Patient is still clinically asymptomatic, but her lung bases have crackles bilaterally. No pedal edema though. So instead of IVF running at 100ml/hr, I discussed with my resident who agreed to change it to 50ml/hr, and see how Dobutamine could help her BP. Also, held the newly ordered 250ml IV NS bolus. Will reassess after sometime with vitals, urine output, symptoms. Since the patient is eating and drinking well, and she already has sings of fluid overload with crackles over her lung martínez bilaterally, we (resident and I) decided to hold the IVF for now and run the idea by Dr Kirk. He has been paged. SBP with Dobutamine alone is 97. Resident notified and agrees with the thought process.
--- NOTE | 2016-11-25 12:31 | NUR ---
1150: AFTER STOPPING DOBUTAMINE GTT AT 11 AM, B/P AT THIS TIME NOTED TO BE 88/38 MANUALLY AND HEART RATE 50S-60S FROM 70S-80S. INFORMED DR. LIGHT. CARDIOLOGY AND GI CALLED. 500 ML BOLUS NORMAL SALINE GIVEN. HEPARIN GTT RESTARTED PER DR. MARTINEZ AND OKAY'D BY DR. ANDERSON. DR. LIGHT IN TO UPDATE FAMILY. CONTINUING TO MONITOR FOR BLEEDING/CHANGES IS VITALS. TO RESTART DOBUTAMINE IF B/P DOESN'T RESPOND TO IVF BOLUS.
--- NOTE | 2016-11-25 13:47 | PN- Att Addend ---
Attending Addendum Attending Brief Note Patient seen and examined. Discussed with the team over here in ICU. 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 She required IV dobutamine to maintain her blood pressure and adequate diureses from a cardiorenal standpoint and the dobutamine was turned off today. However now her blood pressure remains on the low side at 88/50 despite 500 mL of normal saline bolus. We going to bolus her again with another 250 mL of fluid but if she doesn't respond with the second bolus, we are going to call cardiology and critical care consult. She's finished 7 days of antibiotics for the cholecystitis and as per ID doesn't need anymore. We went over the chest x-ray with the radiologist and the effusions are too small to tap so no question of empyema as we cannot tap the effusions. She had some bright red blood per rectum however her crit has not fallen and GI feels it is likely not contributing to the BP but will check another CBC later today with a type and screen just to be on the safe side.
--- NOTE | 2016-11-25 15:39 | ULTRASOUND REPORT ---
EXAMINATION: US PLEURAL EFFUSION CLINICAL INFORMATION: Bilateral pleural effusions, right greater than left. Hypoxia. COMPARISON: Chest x-ray 11/22/2016 TECHNIQUE: Limited grayscale ultrasound examination of the right and left chest was performed. FINDINGS: Small bilateral pleural effusions, inadequate for safe thoracentesis. IMPRESSION: Small bilateral pleural effusions, inadequate for safe thoracentesis.
[2016-11-25 16:00] VITALS: BP 110/56
[2016-11-25 19:46] LABS: HEMATOCRIT 25.5 % (37-47); MEAN CORPUSCULAR HGB 27.6 PG (27.0-31.0); MEAN CORPUSCULAR HGB CONC 32.7 G/DL (33.0-37.0); MEAN CORPUSCULAR VOLUME 84.3 FL (81.0-99.0); MEAN PLATELET VOLUME 7.7 FL (7.4-10.4); PLATELET COUNT 319 /CUMM (130-400); RBC DISTRIBUTION WIDTH 22.1 % (11.5-14.5); RED BLOOD CELL CT 3.03 /CUMM (4.20-5.40); WHITE BLOOD CELL COUNT 17.6 /CUMM (4.8-10.8)
[2016-11-25 21:30] LABS: PTT > 120 SEC (25-37)
[2016-11-26] VITALS: BP 110/42
[2016-11-26 04:44] LABS: MEAN CORPUSCULAR HGB 28.2 PG (27.0-31.0); MEAN CORPUSCULAR HGB CONC 33.3 G/DL (33.0-37.0); MEAN CORPUSCULAR VOLUME 84.5 FL (81.0-99.0); MEAN PLATELET VOLUME 7.3 FL (7.4-10.4); PLATELET COUNT 303 /CUMM (130-400); RBC DISTRIBUTION WIDTH 21.9 % (11.5-14.5); RED BLOOD CELL CT 2.84 /CUMM (4.20-5.40)
[2016-11-26 06:01] LABS: WHITE BLOOD CELL COUNT 12.6 /CUMM (4.8-10.8)
--- NOTE | 2016-11-26 06:53 | PN- Housestaff ---
Subjective Follow-up For: Acute hypoxic hypercarbic respiratory failure, Sepsis, secondary to acute cholecystitis Complaints: no complaints Tele-Events Since Last Visit: Patient's blood pressure was unstable yesterday, so to be determined was restarted yesterday. Subjective: I followed up and examined the patient today. She is lying comfortably in the bed, is alert, oriented, not in acute distress. IV dobutamine drip is running and her vital signs are stable. Review of Systems Constitutional: Reports: no symptoms. EENTM: Reports: no symptoms. Cardiovascular: Reports: no symptoms. Respiratory: Reports: no symptoms. Gastrointestinal: Reports: no symptoms. Genitourinary: Reports: no symptoms. Musculoskeletal: Reports: no symptoms. Skin: Reports: no symptoms. Neurological/Psychological: Reports: no symptoms. Hematologic/Endocrine: Reports: no symptoms. Objective Last 24 Hrs of Vital Signs/I&O Vital Signs Date Time Temp Pulse Resp B/P Pulse O2 O2 Flow FiO2 Ox Delivery Rate 11/26 1630 65 94 11/26 1600 94 BIPAP 40% 11/26 1600 98.1 63 23 97/42 94 BIPAP 40% 11/26 1350 93 BIPAP 40% 11/26 1333 69 94 11/26 1059 94 Nasal 70% Cannula 11/26 0800 92 Nasal 6.0L Cannula 11/26 0800 97.1 80 18 102/44 96 Nasal 6.0L Cannula 11/26 0127 82 17 122/45 03/ 0000 94 Nasal 4.0L Cannula 11/26 0000 96.8 88 18 110/42 94 Nasal 4.0L Cannula 11/25 2134 94 Nasal 4.0L Cannula 11/25 2000 98 Nasal 4.0L Cannula Intake & Output 11/26 1600 11/26 0800 03/07 0000 Intake Total 500 329.6 514.4 Output Total 120 170 200 Balance 380 159.6 314.4 Intake, IV 400 279.6 314.4 Intake, Oral 100 50 200 Number 2 2 1 Bowel Movements Output, Other 20 50 Output, Urine 120 150 150 Patient 69.4 kg Weight Physical Exam General Appearance: Alert, Oriented X3, Cooperative, No Acute Distress Other Physical Findings: Head: atraumatic, normal appearance Respiratory: decreased breath sounds b/l Cardiovascular: regular rate/rhythm, normal S1 and S2, no murmurs, rubs or gallops Gastrointestinal: soft, non-tender, positive bowel sounds, cholecystostomy in place at RUQ Extremities: no edema over bilateral lower extremities Current Medications: Current Medications Sig/Kobi Start time Last Medication Dose Route Stop Time Status Admin Acetaminophen 650 MG .STK-MED ONE 11/26 0947 DC PO 11/26 0948 Acetaminophen 650 MG Q6P PRN 11/14 1615 AC 11/26 PO 0949 Acetaminophen 1,000 MG Q6P PRN 11/14 1615 AC 11/21 IV 0854 Allopurinol 50 MG DAILY 11/15 1000 AC 11/26 PO 0950 Baclofen 2.5 MG BID 11/14 2200 AC 11/26 PO 0950 Cholecalciferol 1,000 IU DAILY 11/15 1000 AC 11/26 PO 0949 Dextrose/Sodium 1,000 ML Q10H 11/25 1415 DC Chloride IV Dobutamine HCl 250 MG Q13H 11/25 1415 DC 11/26 Dextrose/Water 250 ML IV 0127 Epoetin Aldair 10,000 UNITS Q168 12/03 1000 UNVr IV Ferrous Sulfate 325 MG BID 11/14 2200 AC 11/26 PO 0949 Gabapentin 100 MG DAILY 11/14 1600 AC 11/26 PO 0949 Heparin Sodium 25,000 UNIT Q24H 11/25 1215 AC 11/25 (Porcine) IV 1224 Sodium Chloride 500 ML Lactobacillus 1 CAP DAILY 11/15 1000 AC 11/26 Acidophilus PO 0950 Levothyroxine Sodium 0.075 MG DAILY AC 11/27 0700 AC PO Levothyroxine Sodium 0.05 MG DAILY AC 11/15 0700 DC 11/26 PO 0616 Magnesium Oxide 400 MG ONE ONE 11/26 0845 DC 11/26 PO 11/26 0846 0950 Melatonin 3 MG AT BEDTIME PRN 11/19 1545 AC PO Morphine Sulfate 1 MG Q4 HRS NEEDED PRN 11/21 1200 AC IV Multivitamins 1 TAB DAILY 11/15 1000 AC 11/26 Therapeutic PO 0949 Omeprazole 40 MG DAILY AC 11/20 0954 AC 11/26 PO 0616 Sodium Chloride 250 ML BOLUS ONE 11/26 1015 DC 11/26 IV 11/26 1114 0930 Last 24 Hrs of Lab/Jun Results Last 24 Hrs of Labs/Mics: Laboratory Tests 11/26/16 1820: pH 7.27 *L, pCO2 43, pO2 66 L, HCO3 19 L, ABG O2 Sat (Measured) 92.0 L, P-50 (Temp Corrected) N, Carboxyhemoglobin 0.2 L, O2 Concentration % 40%, Temperature 98.1, Respiration Rate 28, O2 Delivery Method BIPAP, Vent Mode ST, Expiratory Pressure 6, Inspiratory Pressure 16, Phlebotomy Draw Site RIGHT RADIAL 11/26/16 1410: pH 7.25 *L, pCO2 46 H, pO2 61 L, HCO3 20 L, ABG O2 Sat (Measured) 90.0 L, Carboxyhemoglobin 0.7 L, O2 Concentration % 40, Temperature 97.1, Respiration Rate 28, O2 Delivery Method BIPAP, Vent Mode ST, Expiratory Pressure 6, Inspiratory Pressure 16, Phlebotomy Draw Site RIGHT RADIAL 11/26/16 0433: PT 13.0 H, INR 1.24 H 11/26/16 0433: Anion Gap 9, Estimated GFR 15 L, Glucose 83, Calcium 8.5, Phosphorus 4.3, Magnesium 1.7, Iron 62, TIBC 198 L, Ferritin 599.0 H, Total Bilirubin 0.4, AST 40 H, ALT 32, Albumin 2.3 L, Vitamin B12 > 1000 H, Folate 15.9, APTT > 120 *H , CBC w Diff MAN DIFF ORDERED, RBC 2.84 L, MCV 84.5, MCH 28.2, RDW 21.9 H, MPV 7.3 L, Segmented Neutrophils 83 H, Lymphocytes 6 L, Monocytes 8, Eosinophils 1, Metamyelocytes 2 H, Nucleated RBCs 53 H, Platelet Estimate ADEQUATE, Polychromasia 1+, Hypochromic-Microcytic 2+, Poikilocytosis 1+, Target Cells 2+, PUBS MCHC 33.3, Retic Count 6.07 H 11/25/16 1915: APTT > 120 *H, CBC w Diff MAN DIFF ORDERED, RBC 3.03 L, MCV 84.3, MCH 27.6, RDW 22.1 H, MPV 7.7, Segmented Neutrophils 95 H, Lymphocytes 1 L, Monocytes 4, Nucleated RBCs 62 H, Platelet Estimate VERIFIED BY SMEAR, Polychromasia 1+, Poikilocytosis 2+, Anisocytosis 2+, Target Cells 2+, PUBS MCHC 32.7 L, Fld Total RBCs Counted 100 Lines/Diet/Fluids Sanchez Still Needed? Yes Assessment/Plan Assessment: 81 yo female with pmh of HTN, hypothyroidism, HLD, CKD, quadriplegia s/p spinal cord stroke, DVT/PE on eliquis, Renal artery stenosis s/p renal artery stenting, who is a resident at [facility] was brought in with fever and possible UTI. Now status post cholecystectomy tube. 1. Acute cholecystitis status post cholecystostomy tube * s/p cholecystostomy tube. Draining bile 160 mL mL in the last 24 hours. * Culture results from biliary drainage shows no growth. Previous urine cultures grew Morganella and Providentia. Repeat urine cultures negative so far. * ID consult appreciated * IV zosyn stopped yesterday * Repeat Chest CT showed no evidence of acute hematoma/hemorrhage within the abdomenor pelvis, Percutaneous cholecystostomy catheter in satisfactory position. Small pleural effusions (right larger left) and compressive atelectasis/consolidation in lower lobes, unchanged compared to 11/18/2016 2. Acute hypoxic respiratory failure * Patient had hypoxic episode today and required BiPAP ventillation. * Could be secondary to bilateral pleural effusions /atelectasis seen on CT scan * Chest x-ray done today showed b/l pleural effusions and pulm congestion. * Patient was on IV heparin yesterday but had one episode of dark colored stool so Heparin has been placed on hold for now. PTT>120s * Pulmonology consult appreciated 3. Acute kidney injury/ATN from sepsis/anasarca, low albumin * Cr 3.0 this morning, getting better slowly * IV fluids discontinued * Closely monitor BEP. * Nephrology on board 4. Cholelithiasis with hydropic gallbladder: * s/p cholecystostomy tube placement by IR 1DA with biliary drainage culture, follow up culture. * Bili culture showed no growth 5. Acute on chronic anemia : * Evaluated by GI yesterday, no plans of acute intervention at this time ( yesterday) * Patient continued on Protonix and probiotic * Patient tolerating a heart healthy diet. * Holding Eliquis and Plavix for anemia and guaiac positive stools 6. Altered mental status/lethargy * CT negative for any acute pathology. 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 c/w baclofen for spasticity & gabapentin 8. Hx of DVT/PE s/p IVC filter: * IV heparin was stopped today due to black stool one episode today, PTT>120s * Doppler lower extremities and d-dimer ordered 9. Hypothyroidism: * c/w levothyroxine 50mcg daily 10. HTN: Continue Procardia. DVT ppx: po eliquis on hold, ALPS for now, full code. Problem List: 1. Sepsis 2. Acute respiratory failure with hypoxia and hypercarbia 3. Acute diastolic CHF (congestive heart failure) 4. Hypothyroidism 5. Bright red blood per rectum 6. Acute cholecystitis Pain Ratin Pain Location: left breast (tender to touch) Pain Goal: Remain pain free Pain Plan: prn analgesics Tomorrow's Labs & Rationales: ICU bundle, CBC Consulting Request: Consulting Specialty: Neurology Consulting Physician: Dr. Rodriguez Reason for Consult: LILLIE, metabolic acidosis prn analgesics Tomorrow's Labs & Rationales: ICU bundle, CBC Consulting Request: Consulting Specialty: Neurology Consulting Physician: Dr. Rodriguez Reason for Consult: LILLIE, metabolic acidosis
[2016-11-26 07:23] LABS: PTT > 120 SEC (25-37)
[2016-11-26 08:00] VITALS: BP 102/44
--- NOTE | 2016-11-26 08:11 | PN- Pulmonary ---
Subjective HPI/Critical Care Issues: Events of yesterday reviewed apparently ultrasound did not show significant fluid for thoracentesis as compared to CT scan. Respiratory status has remained stable on 4 L oxygen saturation 94%. Hypercapnic respiratory failure has improved Objective Current Medications: Current Medications Sig/Kobi Start time Last Medication Dose Route Stop Time Status Admin Acetaminophen 650 MG Q6P PRN 11/14 1615 AC 11/24 PO 0606 Acetaminophen 1,000 MG Q6P PRN 11/14 1615 AC 11/21 IV 0854 Allopurinol 50 MG DAILY 11/15 1000 AC 11/25 PO 1054 Baclofen 2.5 MG BID 11/14 2200 AC 11/25 PO 2227 Cholecalciferol 1,000 IU DAILY 11/15 1000 AC 11/25 PO 1054 Dextrose/Sodium 1,000 ML Q10H 11/25 1415 DC Chloride IV Dobutamine HCl 250 MG Q13H 11/25 1415 AC 11/26 Dextrose/Water 250 ML IV 0127 Dobutamine HCl 250 MG Q13H 11/23 1000 DC 11/25 Dextrose/Water 250 ML IV 0104 Ferrous Sulfate 325 MG BID 11/14 2200 AC 11/25 PO 2227 Gabapentin 100 MG DAILY 11/14 1600 AC 11/25 PO 1054 Heparin Sodium 25,000 UNIT Q24H 11/25 1215 AC 11/25 (Porcine) IV 1224 Sodium Chloride 500 ML Lactobacillus 1 CAP DAILY 11/15 1000 AC 11/25 Acidophilus PO 1054 Levothyroxine Sodium 0.05 MG DAILY AC 11/15 0700 AC 11/26 PO 0616 Melatonin 3 MG AT BEDTIME PRN 11/19 1545 AC PO Morphine Sulfate 1 MG Q4 HRS NEEDED PRN 11/21 1200 AC IV Multivitamins 1 TAB DAILY 11/15 1000 AC 11/25 Therapeutic PO 1054 Nifedipine 30 MG DAILY 11/21 0515 DC 11/25 PO 1055 Omeprazole 40 MG DAILY AC 11/20 0954 AC 11/26 PO 0616 Piperacillin Sod/ 2.25 GM Q8H 11/23 1130 DC 11/25 Tazobactam Sod IV 1103 Sodium Chloride 50 ML Potassium Chloride 20 MEQ ONCE ONE 11/25 1345 DC 11/25 PO 11/25 1346 1409 Sodium Chloride 250 ML BOLUS ONE 11/25 1415 DC IV 11/25 1514 Sodium Chloride 250 ML BOLUS ONE 11/25 1330 DC 11/25 IV 11/25 1429 1333 Sodium Chloride 500 ML BOLUS ONE 11/25 1215 DC 11/25 IV 11/25 1314 1218 Vital Signs & I&O Last 24 Hrs of Vitals and I&O: Vital Signs Date Time Temp Pulse Resp B/P Pulse O2 O2 Flow FiO2 Ox Delivery Rate 11/26 0127 82 17 122/45 11/26 0000 94 Nasal 4.0L Cannula 11/26 0000 96.8 88 18 110/42 94 Nasal 4.0L Cannula 11/25 2134 94 Nasal 4.0L Cannula 11/25 2000 98 Nasal 4.0L Cannula 11/25 1600 96 Nasal 4.0L Cannula 11/25 1600 96.8 82 17 110/56 96 Nasal 4.0L Cannula 11/25 1415 78 78/38 11/25 1055 76 108/38 11/25 1048 94 Nasal 4.0L Cannula Intake & Output 11/26 1600 11/26 0800 11/26 0000 Intake Total 329.6 514.4 Output Total 170 200 Balance 159.6 314.4 Intake, IV 279.6 314.4 Intake, Oral 50 200 Number 2 1 Bowel Movements Output, Other 20 50 Output, Urine 150 150 Patient 153 lb Weight Oxygen saturation 4 L 94% exam for chest diminished breath sounds at the bases cardiac exam regular S1 and S2 without murmurs. There is minimal edema. Impression/Plan Impression/Plan Impression/Plan: 81-year-old woman with multiple medical problems being conservatively treated for acute cholecystitis has developed acute on chronic hypercapnic history failure secondary to increasing effusions and atelectasis in conjunction with opiate administration. Patient has had a degree of hypercarbia in the past however now has acute kidney injury with renal failure compromising renal compensation for her worsening hypercarbia. Respiratory status is markedly improved patient no longer requires BiPAP. Recommendations: Can use BiPAP when necessary respiratory status appears improved. Continue IST and pulmonary toilet for atelectasis. No further pulmonary suggestions will follow as necessary
--- NOTE | 2016-11-26 09:26 | PN- Cardiology ---
Subjective Subjective: * Patient reports discomfort under her left breast. No complaints of shortness of breath or lightheadedness. * Patient was able to recognize me and state my name but tends to answer questions slowly and inconsistently and appears lethargic * Decreasing H/H * Hypothyroid on labs from 11/22 * creatinine 3.0 Objective Vital Signs and I&Os Vital Signs Date Time Temp Pulse Resp B/P Pulse O2 O2 Flow FiO2 Ox Delivery Rate 11/26 0127 82 17 122/45 11/26 0000 94 Nasal 4.0L Cannula 11/26 0000 96.8 88 18 110/42 94 Nasal 4.0L Cannula 11/25 2134 94 Nasal 4.0L Cannula 11/26 1999 98 Nasal 4.0L Cannula 11/25 1600 96 Nasal 4.0L Cannula 11/25 1600 96.8 82 17 110/56 96 Nasal 4.0L Cannula 11/25 1415 78 78/38 11/25 1055 76 108/38 11/25 1048 94 Nasal 4.0L Cannula Intake & Output 11/26 1600 11/26 0800 11/26 0000 11/25 1600 11/25 0800 11/25 0000 Intake Total 329.6 514.4 1328 201 500 Output Total 170 200 150 20 Balance 159.6 314.4 1178 181 500 Intake, IV 279.6 314.4 968 201 250 Intake, Oral 50 200 350 250 Intake, Tube 10 Irrigant Number 2 1 2 2 Bowel Movements Output, Other 20 50 20 Output, Urine 150 150 150 Patient 153 lb 142 lb Weight Physical Exam: General: WD/ WN female in NAD; lethargic but responsive Neck: no JVD Heart: RRR w/o murmur Lungs: clear bilaterally Abdomen: soft, NT, +ve bowel sounds Extremities: no edema Assessment/Plan Assessment/Plan * Discontinue dobutamine which was employed to increase RV contractility. Avoid over diuresis since this patient's high pulmonary pressures will make her pre- load dependent. * Consider an increase in thyroid supplementation. * Patient has some chest discomfort consistent with angina. Obtain a 12 lead ECG. Troponins have been WNL. Transfuse 1 unit pRBC's and consider epogen. Guaiac all stools. Check reticulocyte count to assess whether she is making RBC' s since a low retic count would imply that her H/H is low due to her renal condition rather that active bleeding. At present her anticoagulation is being held on the presumption that there is a significant GI bleed with guaiac positive stools. This may be mild bleeding of hemorrhoids. Continue her PPI. * Decreased O2 sats. Obtain a chest X-ray. Continue telemetry? Yes
--- NOTE | 2016-11-26 10:48 | RADIOLOGY REPORT ---
EXAMINATION: XR PORTABLE CHEST CLINICAL INFORMATION: Shortness of breath. Presumptive diagnosis of edema. COMPARISON: 11/22/2016 TECHNIQUE: AP portable upright view of the chest FINDINGS: Lung volumes are low. Small bilateral pleural effusions are again noted, right side greater than left. The right-sided effusion appears slightly decreased in size from prior. No pneumothorax. Cardiomediastinal contours are unchanged. There is mild pulmonary venous congestion. No appreciable pulmonary edema. Bones are osteopenic. No acute osseous findings. IMPRESSION: 1. Low lung volumes with small bilateral pleural effusions and bibasilar atelectasis. Right-sided pleural effusion is slightly decreased in size from prior. 2. Cardiomegaly with pulmonary venous congestion
--- NOTE | 2016-11-26 11:01 | NUR ---
RECEIVED PATIENT AT 0800: DROWSY/AROUSABLE, ORIENTED X PERSON/PLACE. HARD OF HEARING AT TIMES. SOFT SPOKEN. NSR ON THE MONITOR 70S-80S. AKM=[id number]. DOBUTAMINE GTT AT 5 MCG/KG/MIN OR 19.1 MLS/HR RUNNING. HEPARIN GTT ON HOLD. TO BE RESTARTED AT 14 UNITS/KG/HOUR OR 17.9 MLS/HR AND TO REMAIN RUNNING PER DR. MARTINEZ'S REQUEST. DR. MARTINEZ DENIES WANTING TO RESTART ELIQUIS YET. PATIENT TURNED FROM 5L NC TO 6L NASAL CANNULA FOR SATS 88-89%. PATIENT C/O SHORTNESS OF BREATH MORE TODAY THAN PREVIOUS. DIMINISHED CRACKLES NOTED TO THE BASES. ABDOMEN IS SOFT/DISTENDED, +BS. CHINCHILLA IN PLACE DRAINING MINIMAL YELLOW URINE. GENERALIZED +1 EDEMA NOTED. PATIENT IS A QUADRAPELEGIC W/ THE SMALLEST AMOUNT OF MOVEMENT TO THE RIGHT ARM. SHE HAS 3/10 SQUEEZING DISCOMFORT TO THE LEFT BREAST ON THE OUTSIDE SHE STATED AND IT WAS REPRODUCIBLE UPON PALPATION. DR. LIGHT AWARE. 0900: SPOKE TO DR. MARTINEZ. REQUESTED HOLDING THE DOBUTAMINE GTT AND MONITORING FOR HYPOTENSION. B/P DOWN TO 87/39-91/43. DR. MARTINEZ REQUESTED 250 ML OF NORMAL SALINE BOLUS. ORDER PLACED BY DR. LIGHT AND GIVEN TO PATIENT. CXR ORDERED AND COMPLETED NOTED INCREASING CONGESTION. AFTER TURNING PATIENT FOR CXR, O2 SATS REMAINING 84-88%. DR. LIGHT AWARE. CALLED [facility]. 1045: PATIENT PLACED ON 70% HIGH FLOW O2. WITH INCREASING O2 TO 94%. PATIENT STATES SHE FEELS BETTER AND LESS SHORT OF BREATH. PATIENT IS NOT A CANDIDATE FOR LASIX PER RENAL. PATIENT TO ALSO GET ONE UNIT OF BLOOD PER DR. MARTINEZ. CONTINUING TO MONITOR.
--- NOTE | 2016-11-26 11:11 | PN- Infect Dx ---
Subjective Subjective: Afebrile. She complains of pain under her left breast. She also complained of increased shortness of breath. She has had intermittent hypotension, requiring re-initiation of Dobutamine. Objective Last 24 Hrs of Vital Signs/I&O Vital Signs Date Time Temp Pulse Resp B/P Pulse O2 O2 Flow FiO2 Ox Delivery Rate 11/26 1059 94 Nasal 70% Cannula 11/26 08 92 Nasal 6.0L Cannula 11/27 799 97.1 80 18 102/44 96 Nasal 6.0L Cannula 11/26 0127 82 17 122/45 11/26 0000 94 Nasal 4.0L Cannula 11/26 0000 96.8 88 18 110/42 94 Nasal 4.0L Cannula 11/25 2134 94 Nasal 4.0L Cannula 11/26 1999 98 Nasal 4.0L Cannula 11/25 1600 96 Nasal 4.0L Cannula 11/25 1600 96.8 82 17 110/56 96 Nasal 4.0L Cannula 11/25 1415 78 78/38 Intake & Output 11/26 1600 11/26 0811/26 0000 Intake Total 329.6 514.4 Output Total 170 200 Balance 159.6 314.4 Intake, IV 279.6 314.4 Intake, Oral 50 200 Number 2 1 Bowel Movements Output, Other 20 50 Output, Urine 150 150 Patient 153 lb Weight Physical Exam Other Physical Findings: She is weak and chronically ill appearing but responsive, in no acute distress Lungs decreased breath sounds bilaterally Chest tender on palpation over the left breast Heart regular rhythm with no murmur Abdomen distended, nontender with positive bowel sounds; cholecystostomy tube in place with 50 mL output yesterday and 20 mL overnight Extremities no cyanosis, clubbing or edema Results Last 24 Hours of Lab Results: Laboratory Tests 11/26 11/26 0433 0433 Chemistry Sodium (137 - 145 mmol/L) 136 L Potassium (3.5 - 5.1 mmol/L) 3.7 Chloride (98 - 107 mmol/L) 107 Carbon Dioxide (22 - 30 mmol/L) 20 L Anion Gap (5 - 16) 9 BUN (7 - 17 mg/dL) 42 H Creatinine (0.5 - 1.0 mg/dL) 3.0 H Estimated GFR (>60 ml/min) 15 L Glucose (65 - 99 mg/dL) 83 Calcium (8.4 - 10.2 mg/dL) 8.5 Phosphorus (2.5 - 4.5 mg/dL) 4.3 Magnesium (1.6 - 2.3 mg/dL) 1.7 Total Bilirubin (0.2 - 1.3 mg/dL) 0.4 AST (14 - 36 U/L) 40 H ALT (9 - 52 U/L) 32 Albumin (3.5 - 5.0 g/dL) 2.3 L Coagulation PT (9.4 - 12.5 SEC) 13.0 H INR (0.90 - 1.19) 1.24 H APTT (25 - 37 SEC) > 120 *H Hematology CBC w Diff MAN DIFF ORDERED WBC (4.8 - 10.8 /CUMM) 12.6 H RBC (4.20 - 5.40 /CUMM) 2.84 L Hgb (12.0 - 16.0 G/DL) 8.0 L Hct (37 - 47 %) 24.0 L MCV (81.0 - 99.0 FL) 84.5 MCH (27.0 - 31.0 PG) 28.2 RDW (11.5 - 14.5 %) 21.9 H Plt Count (130 - 400 /CUMM) 303 MPV (7.4 - 10.4 FL) 7.3 L Segmented Neutrophils (42.2 - 75.2 %) 83 H Lymphocytes (20.5 - 51.1 %) 6 L Monocytes (1.7 - 9.3 %) 8 Eosinophils (0 - 5.0 %) 1 Metamyelocytes (0.0 - 1.0 %) 2 H Nucleated RBCs (0.0 - 0.0 /100WBC) 53 H Platelet Estimate (ADEQUATE) ADEQUATE Polychromasia 1+ Hypochromic-Microcytic 2+ Poikilocytosis 1+ Target Cells 2+ PUBS MCHC (33.0 - 37.0 G/DL) 33.3 11/25 1914 Coagulation APTT (25 - 37 SEC) > 120 *H Hematology CBC w Diff MAN DIFF ORDERED WBC (4.8 - 10.8 /CUMM) 17.6 H RBC (4.20 - 5.40 /CUMM) 3.03 L Hgb (12.0 - 16.0 G/DL) 8.4 L Hct (37 - 47 %) 25.5 L MCV (81.0 - 99.0 FL) 84.3 MCH (27.0 - 31.0 PG) 27.6 RDW (11.5 - 14.5 %) 22.1 H Plt Count (130 - 400 /CUMM) 319 MPV (7.4 - 10.4 FL) 7.7 Segmented Neutrophils (42.2 - 75.2 %) 95 H Lymphocytes (20.5 - 51.1 %) 1 L Monocytes (1.7 - 9.3 %) 4 Nucleated RBCs (0.0 - 0.0 /100WBC) 62 H Platelet Estimate (ADEQUATE) VERIFIED BY SMEAR Polychromasia 1+ Poikilocytosis 2+ Anisocytosis 2+ Target Cells 2+ PUBS MCHC (33.0 - 37.0 G/DL) 32.7 L Other Body Source Fld Total RBCs Counted (%) 100 Last 24 Hours of Jun Results: No recent cultures Recent Imaging Studies: Chest x-ray November 26 low lung volumes with small bilateral pleural effusions and bibasilar atelectasis; right pleural effusion has decreased in size Chest ultrasound November 25 small bilateral pleural effusions, "inadequate for safe thoracentesis" Assessment/Plan Impression: Overall status remains poor, though her respiratory status has improved, with borderline hypotension, requiring reinitiation of Dobutamine. She remains afebrile with white blood cell count markedly reduced today, for unclear reasons , with patient now off antibiotics after 9 days of Zosyn for presumed acute cholecystitis now 8 days status post placement of a cholecystostomy tube. The thoracentesis was deferred as there was not felt to be sufficient fluid. The etiology of her left breast pain is unclear and may be musculoskeletal. Suggestion: 1. Further evaluation of her left chest pain per Cardiology 2. Continue to follow off antibiotics
--- NOTE | 2016-11-26 12:24 | PN- Nephrology ---
Assessment/Plan Assessment: LILLIE - Clinical situation and labs c/w ATN from sepsis. Urine sediment bland ( some WBC's in the setting of UTI). Creatinine very slowly improving. Slight increase in SCr in the last day probably 2/2 hypotensive episode. Anasarca - low albumin - likely negative acute phase reactant and nutritional. Cannot be explained by nephrosis or liver disease (at least based on imaging). Leukocystosis - Improved in last day. Anemia - Cannot rule out contribution from kidney disease. Would defer transfusion to Cards but also agree with Dr. Kirk that we can check a retic count and if low, can start Epogen - I would start at 10,000U weekly. Would also check ferritin, iron studies, Vit B12, and Folate just to rule out any other easily correctable etiology of anemia prior to starting. Suggestion: -Cont to monitor BMP -Would check ferritin, iron studies, Vit B12, folate, haptoglobin -If above are OK and retic count is inappropriately low, would start Epogen 10, 000U weekly - target Hg 10-11 (only while renal function remains impaired) -Chest x-ray findings suggest that it would be reasonable to give diuretics if transfusion is given - can dose 40mg IV -No indication for dialysis at this time Please call [phone] with ?'s Subjective Subjective: Hypotensive episode yesterday SCr 3.0 Chest x-ray with small b/l pleural effusions and pulm vascular congestion Pt "feels like nothing is working" Noted to be sleepier as per family at bedside Hg 8.0 - question of whether addition of Epogen would be helpful Objective Vital Signs and I&Os Vital Signs Date Time Temp Pulse Resp B/P Pulse O2 O2 Flow FiO2 Ox Delivery Rate 11/26 1059 94 Nasal 70% Cannula 11/26 0800 92 Nasal 6.0L Cannula 11/26 0800 97.1 80 18 102/44 96 Nasal 6.0L Cannula 11/26 0127 82 17 122/45 0307 0000 94 Nasal 4.0L Cannula 11/26 0000 96.8 88 18 110/42 94 Nasal 4.0L Cannula 11/25 2134 94 Nasal 4.0L Cannula 11/25 2000 98 Nasal 4.0L Cannula 11/25 1600 96 Nasal 4.0L Cannula 11/25 1600 96.8 82 17 110/56 96 Nasal 4.0L Cannula 11/25 1415 78 78/38 Intake & Output 11/26 1600 11/26 0400 11/25 1600 11/25 0400 11/24 1600 11/24 0400 Intake Total 329.6 514.4 0906 351 3511.7 650.2 Output Total 170 200 170 50 40 Balance 159.6 314.4 2469 831 9127.7 610.2 Intake, IV 279.6 314.4 1169 250 426.7 350.2 Intake, Oral 50 200 350 250 860 300 Intake, Tube 10 Irrigant Number 2 1 2 2 1 1 Bowel Movements Output, Other 20 50 20 50 40 Output, Urine 150 150 150 Patient 153 lb 142 lb 143 lb Weight Physical Exam: Gen - chronically ill appearing, drowsy HEENT - supple CV - RRR Chest - clear anteriorly Abd - soft Ext - trace edema mostly of upper ext Neuro - drowsy, not answering all questions Current Medications: Current Medications Sig/Kobi Start time Last Medication Dose Route Stop Time Status Admin Acetaminophen 650 MG Q6P PRN 11/14 1615 AC 11/26 PO 0949 Acetaminophen 1,000 MG Q6P PRN 11/14 1615 AC 11/21 IV 0854 Allopurinol 50 MG DAILY 11/15 1000 AC 11/26 PO 0950 Baclofen 2.5 MG BID 11/14 2200 AC 11/26 PO 0950 Cholecalciferol 1,000 IU DAILY 11/15 1000 AC 11/26 PO 0949 Dextrose/Sodium 1,000 ML Q10H 11/25 1415 DC Chloride IV Dobutamine HCl 250 MG Q13H 11/25 1415 DC 11/26 Dextrose/Water 250 ML IV 0127 Ferrous Sulfate 325 MG BID 11/14 2200 AC 11/26 PO 0949 Gabapentin 100 MG DAILY 11/14 1600 AC 11/26 PO 0949 Heparin Sodium 25,000 UNIT Q24H 11/25 1215 AC 11/25 (Porcine) IV 1224 Sodium Chloride 500 ML Lactobacillus 1 CAP DAILY 11/15 1000 AC 11/26 Acidophilus PO 0950 Levothyroxine Sodium 0.075 MG DAILY AC 11/27 0700 AC PO Levothyroxine Sodium 0.05 MG DAILY AC 11/15 0700 DC 11/26 PO 0616 Magnesium Oxide 400 MG ONE ONE 11/26 0845 DC 11/26 PO 11/26 0846 0950 Melatonin 3 MG AT BEDTIME PRN 11/19 1545 AC PO Morphine Sulfate 1 MG Q4 HRS NEEDED PRN 11/21 1200 AC IV Multivitamins 1 TAB DAILY 11/15 1000 AC 11/26 Therapeutic PO 0949 Nifedipine 30 MG DAILY 11/21 0515 DC 11/25 PO 1055 Omeprazole 40 MG DAILY AC 11/20 0954 AC 11/26 PO 0616 Piperacillin Sod/ 2.25 GM Q8H 11/23 1130 DC 11/25 Tazobactam Sod IV 1103 Sodium Chloride 50 ML Potassium Chloride 20 MEQ ONCE ONE 11/25 1345 DC 11/25 PO 11/25 1346 1409 Sodium Chloride 250 ML BOLUS ONE 11/26 1015 DC 11/26 IV 11/26 1114 0930 Sodium Chloride 250 ML BOLUS ONE 11/25 1415 DC IV 11/25 1514 Sodium Chloride 250 ML BOLUS ONE 11/25 1330 DC 11/25 IV 11/25 1429 1333 Sodium Chloride 500 ML BOLUS ONE 11/25 1215 DC 11/25 IV 11/25 1314 1218 Results Pertinent Lab Results: Laboratory Tests 11/26 11/26 0433 0433 Chemistry Sodium (137 - 145 mmol/L) 136 L Potassium (3.5 - 5.1 mmol/L) 3.7 Chloride (98 - 107 mmol/L) 107 Carbon Dioxide (22 - 30 mmol/L) 20 L Anion Gap (5 - 16) 9 BUN (7 - 17 mg/dL) 42 H Creatinine (0.5 - 1.0 mg/dL) 3.0 H Estimated GFR (>60 ml/min) 15 L Glucose (65 - 99 mg/dL) 83 Calcium (8.4 - 10.2 mg/dL) 8.5 Phosphorus (2.5 - 4.5 mg/dL) 4.3 Magnesium (1.6 - 2.3 mg/dL) 1.7 Total Bilirubin (0.2 - 1.3 mg/dL) 0.4 AST (14 - 36 U/L) 40 H ALT (9 - 52 U/L) 32 Albumin (3.5 - 5.0 g/dL) 2.3 L Coagulation PT (9.4 - 12.5 SEC) 13.0 H INR (0.90 - 1.19) 1.24 H APTT (25 - 37 SEC) > 120 *H Hematology CBC w Diff MAN DIFF ORDERED WBC (4.8 - 10.8 /CUMM) 12.6 H RBC (4.20 - 5.40 /CUMM) 2.84 L Hgb (12.0 - 16.0 G/DL) 8.0 L Hct (37 - 47 %) 24.0 L MCV (81.0 - 99.0 FL) 84.5 MCH (27.0 - 31.0 PG) 28.2 RDW (11.5 - 14.5 %) 21.9 H Plt Count (130 - 400 /CUMM) 303 MPV (7.4 - 10.4 FL) 7.3 L Segmented Neutrophils (42.2 - 75.2 %) 83 H Lymphocytes (20.5 - 51.1 %) 6 L Monocytes (1.7 - 9.3 %) 8 Eosinophils (0 - 5.0 %) 1 Metamyelocytes (0.0 - 1.0 %) 2 H Nucleated RBCs (0.0 - 0.0 /100WBC) 53 H Platelet Estimate (ADEQUATE) ADEQUATE Polychromasia 1+ Hypochromic-Microcytic 2+ Poikilocytosis 1+ Target Cells 2+ PUBS MCHC (33.0 - 37.0 G/DL) 33.3 03/06 03/06 03/06 1915 0700 0700 Coagulation APTT (25 - 37 SEC) > 120 *H Hematology CBC w Diff MAN DIFF ORDERED WBC (4.8 - 10.8 /CUMM) 17.6 H RBC (4.20 - 5.40 /CUMM) 3.03 L Hgb (12.0 - 16.0 G/DL) 8.4 L Hct (37 - 47 %) 25.5 L MCV (81.0 - 99.0 FL) 84.3 MCH (27.0 - 31.0 PG) 27.6 RDW (11.5 - 14.5 %) 22.1 H Plt Count (130 - 400 /CUMM) 319 MPV (7.4 - 10.4 FL) 7.7 Segmented Neutrophils (42.2 - 75.2 %) 95 H Lymphocytes (20.5 - 51.1 %) 1 L Monocytes (1.7 - 9.3 %) 4 Nucleated RBCs (0.0 - 0.0 /100WBC) 62 H Platelet Estimate (ADEQUATE) VERIFIED BY SMEAR Polychromasia 1+ Poikilocytosis 2+ Anisocytosis 2+ Target Cells 2+ PUBS MCHC (33.0 - 37.0 G/DL) 32.7 L Other Body Source Fluid WBC Cancelled Fld Total RBCs Counted (%) 100 Cancelled Fluid Glucose Cancelled Fluid Total Protein Cancelled Fluid Albumin Cancelled Fluid LDH Cancelled 11/25 11/24 0400 1540 Chemistry Sodium (137 - 145 mmol/L) 135 L Potassium (3.5 - 5.1 mmol/L) 3.6 Chloride (98 - 107 mmol/L) 103 Carbon Dioxide (22 - 30 mmol/L) 23 Anion Gap (5 - 16) 9 BUN (7 - 17 mg/dL) 44 H Creatinine (0.5 - 1.0 mg/dL) 2.9 H Estimated GFR (>60 ml/min) 16 L Glucose (65 - 99 mg/dL) 94 Calcium (8.4 - 10.2 mg/dL) 8.8 Phosphorus (2.5 - 4.5 mg/dL) 4.6 H Magnesium (1.6 - 2.3 mg/dL) 1.8 Total Bilirubin (0.2 - 1.3 mg/dL) 0.4 AST (14 - 36 U/L) 50 H ALT (9 - 52 U/L) 39 Albumin (3.5 - 5.0 g/dL) 2.3 L Coagulation PT (9.4 - 12.5 SEC) 12.0 INR (0.90 - 1.19) 1.14 Hematology CBC w Diff MAN DIFF ORDERED NO MAN DIFF REQ WBC (4.8 - 10.8 /CUMM) 21.0 H 19.1 H RBC (4.20 - 5.40 /CUMM) 2.98 L 3.05 L Hgb (12.0 - 16.0 G/DL) 8.2 L 8.5 L Hct (37 - 47 %) 25.2 L 25.8 L MCV (81.0 - 99.0 FL) 84.6 84.6 MCH (27.0 - 31.0 PG) 27.6 27.9 RDW (11.5 - 14.5 %) 21.9 H 21.3 H Plt Count (130 - 400 /CUMM) 325 322 MPV (7.4 - 10.4 FL) 7.6 7.9 Segmented Neutrophils (42.2 - 75.2 %) 85 H Band Neutrophils (0.0 - 5.0 %) 1 Lymphocytes (20.5 - 51.1 %) 10 L Monocytes (1.7 - 9.3 %) 3 Eosinophils (0 - 5.0 %) 1 Nucleated RBCs (0.0 - 0.0 /100WBC) 57 H Platelet Estimate (ADEQUATE) ADEQUATE Polychromasia 1+ Hypochromic-Microcytic 1+ Poikilocytosis 3+ Target Cells 1+ Ovalocytes 1+ Stomatocytes FEW Patsy Cells RARE Elliptocytes 1+ Schistocytes RARE PUBS MCHC (33.0 - 37.0 G/DL) 32.6 L 33.0 Other Body Source Fld Total RBCs Counted (%) 100 11/24 11/23 0410 2230 Chemistry Sodium (137 - 145 mmol/L) 136 L Potassium (3.5 - 5.1 mmol/L) 3.1 L Chloride (98 - 107 mmol/L) 106 Carbon Dioxide (22 - 30 mmol/L) 20 L Anion Gap (5 - 16) 10 BUN (7 - 17 mg/dL) 49 H Creatinine (0.5 - 1.0 mg/dL) 3.1 H Estimated GFR (>60 ml/min) 14 L Glucose (65 - 99 mg/dL) 65 Calcium (8.4 - 10.2 mg/dL) 8.9 Phosphorus (2.5 - 4.5 mg/dL) 3.6 Magnesium (1.6 - 2.3 mg/dL) 1.9 Total Bilirubin (0.2 - 1.3 mg/dL) 0.7 AST (14 - 36 U/L) 68 H ALT (9 - 52 U/L) 39 Albumin (3.5 - 5.0 g/dL) 2.4 L Coagulation PT (9.4 - 12.5 SEC) 12.3 INR (0.90 - 1.19) 1.17 APTT (25 - 37 SEC) 59 H Cancelled Fibrinogen Activity (200 - 393 MG/DL) 447 H Fibrin Degrad Products (< 10 ug/ml) >10 but < 40 ug/ml H Hematology CBC w Diff MAN DIFF ORDERED WBC (4.8 - 10.8 /CUMM) 23.4 H RBC (4.20 - 5.40 /CUMM) 3.12 L Hgb (12.0 - 16.0 G/DL) 8.7 L Hct (37 - 47 %) 26.2 L MCV (81.0 - 99.0 FL) 83.8 MCH (27.0 - 31.0 PG) 27.8 RDW (11.5 - 14.5 %) 20.9 H Plt Count (130 - 400 /CUMM) 346 MPV (7.4 - 10.4 FL) 8.0 Segmented Neutrophils (42.2 - 75.2 %) 88 H Band Neutrophils (0.0 - 5.0 %) 2 Lymphocytes (20.5 - 51.1 %) 5 L Monocytes (1.7 - 9.3 %) 2 Metamyelocytes (0.0 - 1.0 %) 2 H Nucleated RBCs (0.0 - 0.0 /100WBC) 37 H Platelet Estimate (ADEQUATE) ADEQUATE Polychromasia 1+ Hypochromic-Microcytic 1+ Poikilocytosis 3+ Anisocytosis 1+ Macrocytic Cells 1+ Target Cells 3+ PUBS MCHC (33.0 - 37.0 G/DL) 33.1 04 11/23 2014 1530 Coagulation APTT (25 - 37 SEC) > 120 *H Hematology CBC w Diff MAN DIFF ORDERED WBC (4.8 - 10.8 /CUMM) 23.2 H RBC (4.20 - 5.40 /CUMM) 3.15 L Hgb (12.0 - 16.0 G/DL) 8.7 L Hct (37 - 47 %) 26.4 L MCV (81.0 - 99.0 FL) 83.8 MCH (27.0 - 31.0 PG) 27.5 RDW (11.5 - 14.5 %) 21.0 H Plt Count (130 - 400 /CUMM) 340 MPV (7.4 - 10.4 FL) 7.9 Segmented Neutrophils (42.2 - 75.2 %) 84 H Band Neutrophils (0.0 - 5.0 %) 3 Lymphocytes (20.5 - 51.1 %) 5 L Monocytes (1.7 - 9.3 %) 4 Metamyelocytes (0.0 - 1.0 %) 4 H Nucleated RBCs (0.0 - 0.0 /100WBC) 44 H Platelet Estimate (ADEQUATE) VERIFIED BY SMEAR Polychromasia 1+ Hypochromic-Microcytic 1+ Poikilocytosis 2+ Anisocytosis 1+ Target Cells 2+ PUBS MCHC (33.0 - 37.0 G/DL) 32.9 L 11/23 1445 Blood Gas pH (7.35 - 7.45 PH) 7.37 pCO2 (35 - 45 TORR) 36 pO2 (80 - 100 TORR) 58 L HCO3 (21 - 28 MEQ/L) 21 ABG O2 Sat (Measured) (>96.0 %) 89.0 L P-50 (Temp Corrected) N Carboxyhemoglobin (1.5 - 5.0 %) 0.4 L O2 Concentration % 4LPM O2 Delivery Method NC Miscellaneous Phlebotomy Draw Site RIGHT RADIAL Imaging/Other Studies: EXAM TYPE: RAD - XRY-PORTABLE CHEST XRAY EXAMINATION: XR PORTABLE CHEST CLINICAL INFORMATION: Shortness of breath. Presumptive diagnosis of edema. COMPARISON: 11/22/2016 TECHNIQUE: AP portable upright view of the chest FINDINGS: Lung volumes are low. Small bilateral pleural effusions are again noted, right side greater than left. The right-sided effusion appears slightly decreased in size from prior. No pneumothorax. Cardiomediastinal contours are unchanged. There is mild pulmonary venous congestion. No appreciable pulmonary edema. Bones are osteopenic. No acute osseous findings. IMPRESSION: 1. Low lung volumes with small bilateral pleural effusions and bibasilar atelectasis. Right-sided pleural effusion is slightly decreased in size from prior. 2. Cardiomegaly with pulmonary venous congestion TTE CONCLUSIONS 1. Small and possibly underfilled left ventricle. 2. Mild left ventricular hypertrophy. 3. Hyperdynamic EF of 80% with impaired LV relaxation. 4. Mildly hypokinetic right ventricle. 5. Trace mitral regurgitation. 6. Mild tricuspid regurgitation. 7. Mild aortic regurgitation. 8. Mild pulmonic regurgitation. 9. Severe pulmonary hypertension. 10. Small left pleural effusion.
--- NOTE | 2016-11-26 13:28 | NUR ---
1328: PATIENT HAVING INCREASING SOB AND O2 SATS NOW DOWN TO 87% AND HOLDING ON 70% HIGH FLOW O2. RNFRANKI CALLED. PATIENT PLACED BACK ON BIPAP.
--- NOTE | 2016-11-26 13:36 | NUR ---
SPEECH THERAPY: ATTEMPTED TO SEE PT FOR DIET TOLERANCE. PER RN AND DAUGHTER'S REPORT, PT TOLERATING REGULAR DIET/THIN LIQUIDS W/ NO COUGHING/DIFFICULTIES. PT SEEN AT BEDSIDE W/ LUNCH TRAY. PT DECLINING LUNCH BY NODDING HER HEAD 'NO,' & INDICATING SHE WANTED TO SLEEP. PT TOLERATING LEAST RESTRICTIVE/BASELINE DIET W/ NO COUGHING/DIFFICULTIES. REC PT CONTINUE W/ REGULAR DIET/ THIN LIQUIDS. NO FURTHER SKILLED ST SERVICES CLINICALLY INDICATED AT THIS TIME. PLEASE RE-REFER IF PT STATUS CHANGES.
[2016-11-26 16:00] VITALS: BP 97/42
--- NOTE | 2016-11-26 17:24 | NUR ---
PATIENT BECOMING BRADYCARDIC DOWN TO 48 WHILE ON THE BIPAP AND SLEEPING STARTING AROUND 1540. PATIENT WOKEN UP, HEART RATE INCREASED TO THE 60S. DR. KANG AWARE. OTHER VITALS STABLE. DR. BARNES MADE TO BE THE ATTENDING. PATIENT TRANSFERRED TO ICU STANDING. FAMILY UPDATED/AWARE. CONTINUING TO MONITOR MORE CLOSELY.
--- NOTE | 2016-11-26 18:49 | Event Note ---
Event Note Event Note: Pt seen and examined upgraded to ICU secondary to BiPAP necessity in setting of her underlying issues and full code status. Daughter Wanda is at bedside Discussed goals of care and outlined plan with patient and daughter The patient is currently on bipap, tolerating well. Her abg is consistent with a metabolic acidosis. 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
[2016-11-27] VITALS: BP 110/50
[2016-11-27 05:22] LABS: HEMATOCRIT 23.1 % (37-47); MEAN CORPUSCULAR HGB 27.9 PG (27.0-31.0); MEAN CORPUSCULAR HGB CONC 33.1 G/DL (33.0-37.0); MEAN CORPUSCULAR VOLUME 84.3 FL (81.0-99.0); PLATELET COUNT 289 /CUMM (130-400); RBC DISTRIBUTION WIDTH 22.2 % (11.5-14.5); RED BLOOD CELL CT 2.74 /CUMM (4.20-5.40)
[2016-11-27 06:03] LABS: WHITE BLOOD CELL COUNT 15.8 /CUMM (4.8-10.8)
--- NOTE | 2016-11-27 06:53 | PN- Resident CRCU ---
Subjective HPI/CRCU Issues: Patient is in the ICU for sepsis, respiratory distress. I followed up and examined the patient today. She is resting comfortably in bed , is alert, oriented, speaking softly, and does not have any complaints. She did require BiPAP ventilation since yesterday evening, but she is comfortably getting additional oxygen via nasal cannula. Vitals are stable, no overnight issues. 1100hrs: Patient had one episode of black tarry stool. Of note, her H&H has dropped slightly, and also she has been taking ferrous sulfate orally. Objective Vital Signs & I&O Last 8 Hrs of Vitals and I&O: Vital Signs Date Time Temp Pulse Resp B/P Pulse O2 O2 Flow FiO2 Ox Delivery Rate 11/27 1200 Nasal 2.0L Cannula 11/27 1000 Nasal 2.0L Cannula 11/27 1000 97.7 73 18 108/60 91 Nasal 2.0L Cannula 11/27 0545 69 97 11/27 0400 96 BIPAP 45% 11/27 0322 67 96 11/27 0028 54 98 11/27 0000 96 BIPAP 45% / 0000 97.0 62 28 110/50 96 BIPAP 45% 11/26 2233 93 BIPAP 45% 11/26 2229 77 93 11/26 2000 95 Nasal 5.0L Cannula 11/26 1945 48 95 11/26 1630 65 94 11/26 1600 94 BIPAP 40% 11/26 1600 98.1 63 23 97/42 94 BIPAP 40% Intake & Output 11/27 1600 08 0800 /08 0000 Intake Total 80 160 Output Total 380 350 Balance -300 -190 Intake, Oral 80 160 Number 1 Bowel Movements Output, Other 40 Output, Urine 340 350 Patient 67.245 kg Weight Exam General Appearance: well developed/nourished, no apparent distress, alert, awake , comfortable Other Physical Findings: Other Physical Findings: Head: atraumatic, normal appearance Respiratory: decreased breath sounds b/l Cardiovascular: regular rate/rhythm, normal S1 and S2, no murmurs, rubs or gallops Gastrointestinal: soft, non-tender, positive bowel sounds, cholecystostomy in place at RUQ Extremities: no edema over bilateral lower extremities Sanchez Still Needed? Yes Nutrition Nutrition: P.O. diet (poor intake) Current Medications: Current Medications Sig/Kobi Start time Last Medication Dose Route Stop Time Status Admin Acetaminophen 650 MG Q6P PRN 11/14 1615 AC 11/26 PO 0949 Acetaminophen 1,000 MG Q6P PRN 11/14 1615 AC 11/21 IV 0854 Allopurinol 50 MG DAILY 11/15 1000 AC 11/27 PO 0935 Baclofen 2.5 MG BID 11/14 2200 AC 11/27 PO 0935 Cholecalciferol 1,000 IU DAILY 11/15 1000 AC 11/27 PO 0935 Epoetin Aldair 10,000 UNITS Q168 12/03 1000 CAN IV Epoetin Aldair 10,000 UNITS Q168 11/26 1915 AC 11/26 SC 2028 Ferrous Sulfate 325 MG BID 11/14 2200 AC 11/27 PO 0935 Gabapentin 100 MG DAILY 11/14 1600 AC 11/27 PO 0935 Heparin Sodium 25,000 UNIT Q24H 11/25 1215 DC 11/25 (Porcine) IV 1224 Sodium Chloride 500 ML Lactobacillus 1 CAP DAILY 11/15 1000 AC 11/27 Acidophilus PO 0935 Levothyroxine Sodium 0.075 MG DAILY AC 11/27 0700 AC 11/27 PO 0636 Magnesium Oxide 400 MG ONE ONE 11/27 0730 DC 11/27 PO 11/27 0731 0935 Melatonin 3 MG AT BEDTIME PRN 11/19 1545 AC PO Morphine Sulfate 1 MG Q4 HRS NEEDED PRN 11/21 1200 AC IV Multivitamins 1 TAB DAILY 11/15 1000 AC 11/27 Therapeutic PO 0935 Omeprazole 40 MG DAILY AC 11/20 0954 AC 11/27 PO 0636 Sodium Bicarbonate 1,300 MG BID 11/27 1132 AC PO Impression/Plan Impression/Problem List Impression: 81 yo female with pmh of HTN, hypothyroidism, HLD, CKD, quadriplegia s/p spinal cord stroke, DVT/PE on eliquis, Renal artery stenosis s/p renal artery stenting, who is a resident at [facility] was brought in with fever and possible UTI. Now status post cholecystectomy tube. 1. Acute cholecystitis status post cholecystostomy tube * s/p cholecystostomy tube. Draining bile 110 mL mL in the last 24 hours. * Culture results from biliary drainage shows no growth. Previous urine cultures grew Morganella and Providentia. Repeat urine cultures negative so far. * ID consult appreciated * Continue off abx * Repeat Chest CT showed no evidence of acute hematoma/hemorrhage within the abdomenor pelvis, Percutaneous cholecystostomy catheter in satisfactory position. Small pleural effusions (right larger left) and compressive atelectasis/consolidation in lower lobes, unchanged compared to 11/18/2016 2. Acute hypoxic respiratory failure * Patient had hypoxic episode yesterday and required BiPAP ventillation. Now on NC, saturting well. * Could be secondary to bilateral pleural effusions /atelectasis seen on CT scan * Patient was on IV heparin yesterday but had one episode of dark colored stool so Heparin has been placed on hold for now. PTT>120s * Pulmonology consult appreciated 3. Acute kidney injury/ATN from sepsis/anasarca, low albumin * Cr 2.9 this morning, getting better slowly * IV fluids discontinued * Closely monitor BEP. * Nephrology on board 4. Cholelithiasis with hydropic gallbladder: * s/p cholecystostomy tube placement by IR 1DA with biliary drainage culture, follow up culture. * Bili culture showed no growth 5. Acute on chronic anemia : * GI consult appreciated. She had one episode of black stool at 1100hrs today. Vitals have been stable and h/h has dropped only a bit. Dr Walton from GI services has been updated over phone (1340hrs today) and according to him, we will wait for any GI procedures, unless she is actively/profusely bleeding to alter her vitals, or when she is ready for any procedure. No plans of acute intervention currently. * Receiving one unit of PRBC today, considering her cardiac history and her Hb should be more than 8. Might receive Lasix after that though. * Patient continued on Protonix and probiotic * Patient tolerating a heart healthy diet. * Holding Eliquis and Plavix for anemia and guaiac positive stools 6. Altered mental status/lethargy * CT negative for any acute pathology. 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 c/w baclofen for spasticity & gabapentin 8. Hx of DVT/PE s/p IVC filter: * IV heparin was stopped today due to black stool one episode today, PTT>120s * Doppler lower extremities and d-dimer ordered 9. Hypothyroidism: * c/w levothyroxine 50mcg daily 10. HTN: Continue Procardia. DVT ppx: po eliquis on hold, ALPS for now, full code. Problem List: 1. Acute respiratory failure with hypoxia and hypercarbia 2. Acute diastolic CHF (congestive heart failure) 3. Acute blood loss anemia 4. Malnutrition 5. Acute cholecystitis 6. Sepsis Pain Ratin Pain Location: left side of breast (musculoskeletal) Pain Goal: Pain 4 or less Pain Plan: prn analgesics Tomorrow's Labs & Rationales: ICU lab bundle, CBC Plan DVT/Prophylaxis: mechanical Code Status: Full Code
[2016-11-27 10:00] VITALS: BP 108/60
--- NOTE | 2016-11-27 10:17 | PN- CRCU ---
Subjective HPI/Critical Care Issues: pt seen and examined overnight on bipap now on nasal cannula ros limited Objective Current Medications: Current Medications Sig/Kobi Start time Last Medication Dose Route Stop Time Status Admin Acetaminophen 650 MG Q6P PRN 11/14 1615 AC 11/26 PO 0949 Acetaminophen 1,000 MG Q6P PRN 11/14 1615 AC 11/21 IV 0854 Allopurinol 50 MG DAILY 11/15 1000 AC 11/27 PO 0935 Baclofen 2.5 MG BID 11/14 2200 AC 11/27 PO 0935 Cholecalciferol 1,000 IU DAILY 11/15 1000 AC 11/27 PO 0935 Dobutamine HCl 250 MG Q13H 11/25 1415 DC 11/26 Dextrose/Water 250 ML IV 0127 Epoetin Aldair 10,000 UNITS Q168 12/03 1000 CAN IV Epoetin Aldair 10,000 UNITS Q168 11/26 1915 AC 11/26 SC 2028 Ferrous Sulfate 325 MG BID 11/14 2200 AC 11/27 PO 0935 Gabapentin 100 MG DAILY 11/14 1600 AC 11/27 PO 0935 Heparin Sodium 25,000 UNIT Q24H 11/25 1215 DC 11/25 (Porcine) IV 1224 Sodium Chloride 500 ML Lactobacillus 1 CAP DAILY 11/15 1000 AC 11/27 Acidophilus PO 0935 Levothyroxine Sodium 0.075 MG DAILY AC 11/27 0700 AC 11/27 PO 0636 Levothyroxine Sodium 0.05 MG DAILY AC 11/15 0700 DC 11/26 PO 0616 Magnesium Oxide 400 MG ONE ONE 11/27 0730 DC 11/27 PO 11/27 0731 0935 Melatonin 3 MG AT BEDTIME PRN 11/19 1545 AC PO Morphine Sulfate 1 MG Q4 HRS NEEDED PRN 11/21 1200 AC IV Multivitamins 1 TAB DAILY 11/15 1000 AC 11/27 Therapeutic PO 0935 Omeprazole 40 MG DAILY AC 11/20 0954 AC 11/27 PO 0636 Sodium Chloride 250 ML BOLUS ONE 11/26 1015 DC 11/26 IV 11/26 1114 0930 Vital Signs & I&O Last 24 Hrs of Vitals and I&O: Vital Signs Date Time Temp Pulse Resp B/P Pulse O2 O2 Flow FiO2 Ox Delivery Rate 11/27 0545 69 97 11/27 0400 96 BIPAP 45% 11/27 0322 67 96 11/27 0028 54 98 11/27 0000 96 BIPAP 45% 11/27 0000 97.0 62 28 110/50 96 BIPAP 45% 11/26 2233 93 BIPAP 45% 11/26 2229 77 93 11/27 1999 95 Nasal 5.0L Cannula 11/26 1945 48 95 11/26 1630 65 94 11/26 1600 94 BIPAP 40% 11/26 1600 98.1 63 23 97/42 94 BIPAP 40% 11/26 1350 93 BIPAP 40% 11/26 1333 69 94 11/26 1059 94 Nasal 70% Cannula Intake & Output 11/27 1600 11/27 0800 11/27 0000 Intake Total 80 160 Output Total 380 350 Balance -300 -190 Intake, Oral 80 160 Number 1 Bowel Movements Output, Other 40 Output, Urine 340 350 Patient 148 lb Weight Exam Other Physical Findings: gen awake and alert on bipap heent bipap cvs s1, s2 lungs rare rhonchi, dimnished bases abd soft, bs+ ext edematous neuro paresis Results Last 24 Hrs of Lab Results: Laboratory Tests 11/27/16 0430: Anion Gap 9, Estimated GFR 16 L, Glucose 67, Calcium 8.6, Phosphorus 4.2, Magnesium 1.8, Total Bilirubin 0.4, AST 33, ALT 29, Albumin 2.1 L, CBC w Diff MAN DIFF ORDERED, RBC 2.74 L, MCV 84.3, MCH 27.9, RDW 22.2 H, MPV 8.0, Segmented Neutrophils 91 H, Lymphocytes 3 L, Monocytes 3, Myelocytes 3 H, Nucleated RBCs 39 H, Platelet Estimate ADEQUATE, Hypochromic-Microcytic 2+, Poikilocytosis 2+, Anisocytosis 2+, Target Cells 2+, PUBS MCHC 33.1 11/27/16 0425: pH 7.25 *L, pCO2 46 H, pO2 66 L, HCO3 20 L, ABG O2 Sat (Measured) 92.0 L, P- 50 (Temp Corrected) Y, Carboxyhemoglobin 0.3 L, O2 Concentration % 45%, Temperature 97.0, Respiration Rate 28, O2 Delivery Method VISION-FFM, Vent Mode ST, Expiratory Pressure 6, Inspiratory Pressure 16, Phlebotomy Draw Site RIGHT RADIAL 11/26/16 1820: pH 7.27 *L, pCO2 43, pO2 66 L, HCO3 19 L, ABG O2 Sat (Measured) 92.0 L, P-50 (Temp Corrected) N, Carboxyhemoglobin 0.2 L, O2 Concentration % 40%, Temperature 98.1, Respiration Rate 28, O2 Delivery Method BIPAP, Vent Mode ST, Expiratory Pressure 6, Inspiratory Pressure 16, Phlebotomy Draw Site RIGHT RADIAL 11/26/16 1430: APTT Cancelled 11/26/16 1410: pH 7.25 *L, pCO2 46 H, pO2 61 L, HCO3 20 L, ABG O2 Sat (Measured) 90.0 L, Carboxyhemoglobin 0.7 L, O2 Concentration % 40, Temperature 97.1, Respiration Rate 28, O2 Delivery Method BIPAP, Vent Mode ST, Expiratory Pressure 6, Inspiratory Pressure 16, Phlebotomy Draw Site RIGHT RADIAL Impression/Plan Impression/Plan Impression/Plan: Impression 81 year old woman - s/p cholecystostomy tube for acute cholecystitis - hypoxemic respiratory failure requiring bipap use - metabolic acidosis - LILLIE - acute on chronic anemia with blood loss - 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 Plan Respiratory - bipap nocturnally and as needed during the day, primarily to reduce the work of breathing - abg repeat 11/28 unless clinically indicated earlier - keep spo2 >92% ID - cholecystomy tube monitoring - f/u ID recommendations - off abx CVS - f/u cardiology input - heparin gtt stopped Heme - monitor cbc, goal hgb >8 or if bleeding Metabolic - f/u nephrology recommendations - strict ins/outs Alimentary - on diet, f/u nutrition recommendations Neuro - paresis secondary to spinal cva DVT prophylaxis at all times with ALPS, given anemia only mechanical prophylaxis at this time, has IVC filter D/w pt and daughter TTS 35 min Code status - currently full - will have ongoing discussions regarding goals of care Code Status: Full Code
--- NOTE | 2016-11-27 10:21 | PN- Nephrology ---
Assessment/Plan Assessment: LILLIE - Clinical situation and labs c/w ATN from sepsis. Urine sediment bland ( some WBC's in the setting of UTI). Creatinine very slowly improving. Anasarca - low albumin - likely negative acute phase reactant and nutritional. Cannot be explained by nephrosis or liver disease (at least based on imaging). It may be hard with her low albumin to get any excess fluid off without worsening her creatinine. Hopefully her albumin will improve and then her volume status. Anemia - To get transfusion today. Low retic index - started on Epogen. Metabolic acidosis - In the setting of impaired kidney function. Suggestion: -Cont to monitor BMP -Would check haptoglobin -Cont weekly Epogen to target Hg 10-11 -OK to give blood without IV lasix - would hold off in general on diuresing at this time -Would start sodium bicarb 1300mg BID -No indication for dialysis at this time Please call [phone] with ?'s Subjective Subjective: SCr down to 2.9 Hg down to 7.7 - to get 1U PRBC Started on Epogen Not on dobutamine Weight up 12lbs since 11/14; albumin 3.0->2.1 since that time Chest x-ray yesterday with R>L pleural effusions and low lung volumes ( interstitial markings not too prominent) Still with pain in L breast Objective Vital Signs and I&Os Vital Signs Date Time Temp Pulse Resp B/P Pulse O2 O2 Flow FiO2 Ox Delivery Rate 11/27 0545 69 97 11/27 0400 96 BIPAP 45% 11/27 0322 67 96 11/27 0028 54 98 11/27 0000 96 BIPAP 45% 11/27 0000 97.0 62 28 110/50 96 BIPAP 45% 11/26 2233 93 BIPAP 45% 11/26 2229 77 93 11/26 2000 95 Nasal 5.0L Cannula 11/26 1945 48 95 11/26 1630 65 94 11/26 1600 94 BIPAP 40% 11/26 1600 98.1 63 23 97/42 94 BIPAP 40% 11/26 1350 93 BIPAP 40% 11/26 1333 69 94 11/26 1059 94 Nasal 70% Cannula Intake & Output 11/27 1600 11/27 0400 11/26 1600 11/26 0400 11/25 1600 11/25 040 Intake Total 80 160 829.6 514.4 1529 500 Output Total 380 350 290 200 170 Balance -300 -190 539.6 314.4 1359 500 Intake, IV 679.6 314.4 1169 250 Intake, Oral 80 160 150 200 350 250 Intake, Tube 10 Irrigant Number 1 4 1 2 2 Bowel Movements Output, Other 40 20 50 20 Output, Urine 340 350 270 150 150 Patient 148 lb 153 lb 142 lb Weight Physical Exam: Gen - somewhat improved appearance, speaking softly HEENT - JVP not clearly up CV - RRR Chest - clear anteriorly Abd - soft, nontender Ext - quadriplegic, trace edema Neuro - able to converse Current Medications: Current Medications Sig/Kobi Start time Last Medication Dose Route Stop Time Status Admin Acetaminophen 650 MG Q6P PRN 11/14 1615 AC 11/26 PO 0949 Acetaminophen 1,000 MG Q6P PRN 11/14 1615 AC 11/21 IV 0854 Allopurinol 50 MG DAILY 11/15 1000 AC 11/27 PO 0935 Baclofen 2.5 MG BID 11/14 2200 AC 11/27 PO 0935 Cholecalciferol 1,000 IU DAILY 11/15 1000 AC 11/27 PO 0935 Dobutamine HCl 250 MG Q13H 11/25 1415 DC 11/26 Dextrose/Water 250 ML IV 0127 Epoetin Aldair 10,000 UNITS Q168 12/03 1000 CAN IV Epoetin Aldair 10,000 UNITS Q168 11/26 1915 AC 11/26 SC 2028 Ferrous Sulfate 325 MG BID 11/14 2200 AC 11/27 PO 0935 Gabapentin 100 MG DAILY 11/14 1600 AC 11/27 PO 0935 Heparin Sodium 25,000 UNIT Q24H 11/25 1215 DC 11/25 (Porcine) IV 1224 Sodium Chloride 500 ML Lactobacillus 1 CAP DAILY 11/15 1000 AC 11/27 Acidophilus PO 0935 Levothyroxine Sodium 0.075 MG DAILY AC 11/27 07 AC 11/27 PO 0636 Levothyroxine Sodium 0.05 MG DAILY AC 11/15 0700 DC 11/26 PO 0616 Magnesium Oxide 400 MG ONE ONE 11/27 0630 DC 11/27 PO 11/27 0731 0935 Melatonin 3 MG AT BEDTIME PRN 11/19 1545 AC PO Morphine Sulfate 1 MG Q4 HRS NEEDED PRN 11/21 1200 AC IV Multivitamins 1 TAB DAILY 11/15 1000 AC 11/27 Therapeutic PO 0935 Omeprazole 40 MG DAILY AC 11/20 0954 AC 11/27 PO 0636 Sodium Chloride 250 ML BOLUS ONE 11/26 1015 DC 11/26 IV 11/26 1114 0930 Results Pertinent Lab Results: Laboratory Tests 11/27 11/27 0430 0425 Blood Gas pH (7.35 - 7.45 PH) 7.25 *L pCO2 (35 - 45 TORR) 46 H pO2 (80 - 100 TORR) 66 L HCO3 (21 - 28 MEQ/L) 20 L ABG O2 Sat (Measured) (>96.0 %) 92.0 L P-50 (Temp Corrected) Y Carboxyhemoglobin (1.5 - 5.0 %) 0.3 L O2 Concentration % 45% Temperature (97.0 - 100.0 FARH) 97.0 Respiration Rate (BPM) 28 O2 Delivery Method VISION-FFM Vent Mode ST Expiratory Pressure (CM H2O P) 6 Inspiratory Pressure (CM H2O P) 16 Chemistry Sodium (137 - 145 mmol/L) 136 L Potassium (3.5 - 5.1 mmol/L) 3.7 Chloride (98 - 107 mmol/L) 108 H Carbon Dioxide (22 - 30 mmol/L) 20 L Anion Gap (5 - 16) 9 BUN (7 - 17 mg/dL) 41 H Creatinine (0.5 - 1.0 mg/dL) 2.9 H Estimated GFR (>60 ml/min) 16 L Glucose (65 - 99 mg/dL) 67 Calcium (8.4 - 10.2 mg/dL) 8.6 Phosphorus (2.5 - 4.5 mg/dL) 4.2 Magnesium (1.6 - 2.3 mg/dL) 1.8 Total Bilirubin (0.2 - 1.3 mg/dL) 0.4 AST (14 - 36 U/L) 33 ALT (9 - 52 U/L) 29 Albumin (3.5 - 5.0 g/dL) 2.1 L Hematology CBC w Diff MAN DIFF ORDERED WBC (4.8 - 10.8 /CUMM) 15.8 H RBC (4.20 - 5.40 /CUMM) 2.74 L Hgb (12.0 - 16.0 G/DL) 7.7 L Hct (37 - 47 %) 23.1 L MCV (81.0 - 99.0 FL) 84.3 MCH (27.0 - 31.0 PG) 27.9 RDW (11.5 - 14.5 %) 22.2 H Plt Count (130 - 400 /CUMM) 289 MPV (7.4 - 10.4 FL) 8.0 Segmented Neutrophils (42.2 - 75.2 %) 91 H Lymphocytes (20.5 - 51.1 %) 3 L Monocytes (1.7 - 9.3 %) 3 Myelocytes (0 - 0 %) 3 H Nucleated RBCs (0.0 - 0.0 /100WBC) 39 H Platelet Estimate (ADEQUATE) ADEQUATE Hypochromic-Microcytic 2+ Poikilocytosis 2+ Anisocytosis 2+ Target Cells 2+ PUBS MCHC (33.0 - 37.0 G/DL) 33.1 Miscellaneous Phlebotomy Draw Site RIGHT RADIAL 11/26 11/26 11/26 11/26 1820 1430 1410 0433 Blood Gas pH (7.35 - 7.45 PH) 7.27 *L 7.25 *L pCO2 (35 - 45 TORR) 43 46 H pO2 (80 - 100 TORR) 66 L 61 L HCO3 (21 - 28 MEQ/L) 19 L 20 L ABG O2 Sat (Measured) (>96.0 %) 92.0 L 90.0 L P-50 (Temp Corrected) N Carboxyhemoglobin (1.5 - 5.0 %) 0.2 L 0.7 L O2 Concentration % 40% 40 Temperature (97.0 - 100.0 FARH) 98.1 97.1 Respiration Rate (BPM) 28 28 O2 Delivery Method BIPAP BIPAP Vent Mode ST ST Expiratory Pressure (CM H2O P) 6 6 Inspiratory Pressure (CM H2O P) 16 16 Coagulation PT (9.4 - 12.5 SEC) 13.0 H INR (0.90 - 1.19) 1.24 H APTT Cancelled Miscellaneous Phlebotomy Draw Site RIGHT RADIAL RIGHT RADIAL 11/26 11/25 0433 1915 Chemistry Sodium (137 - 145 mmol/L) 136 L Potassium (3.5 - 5.1 mmol/L) 3.7 Chloride (98 - 107 mmol/L) 107 Carbon Dioxide (22 - 30 mmol/L) 20 L Anion Gap (5 - 16) 9 BUN (7 - 17 mg/dL) 42 H Creatinine (0.5 - 1.0 mg/dL) 3.0 H Estimated GFR (>60 ml/min) 15 L Glucose (65 - 99 mg/dL) 83 Calcium (8.4 - 10.2 mg/dL) 8.5 Phosphorus (2.5 - 4.5 mg/dL) 4.3 Magnesium (1.6 - 2.3 mg/dL) 1.7 Iron (37 - 170 ug/dL) 62 TIBC (265 - 497 ug/dL) 198 L Ferritin (11.1 - 264 ng/mL) 599.0 H Total Bilirubin (0.2 - 1.3 mg/dL) 0.4 AST (14 - 36 U/L) 40 H ALT (9 - 52 U/L) 32 Albumin (3.5 - 5.0 g/dL) 2.3 L Vitamin B12 (239 - 931 pg/mL) > 1000 H Folate (2.76 - 20.0 ng/mL) 15.9 Coagulation APTT (25 - 37 SEC) > 120 *H > 120 *H Hematology CBC w Diff MAN DIFF ORDERED MAN DIFF ORDERED WBC (4.8 - 10.8 /CUMM) 12.6 H 17.6 H RBC (4.20 - 5.40 /CUMM) 2.84 L 3.03 L Hgb (12.0 - 16.0 G/DL) 8.0 L 8.4 L Hct (37 - 47 %) 24.0 L 25.5 L MCV (81.0 - 99.0 FL) 84.5 84.3 MCH (27.0 - 31.0 PG) 28.2 27.6 RDW (11.5 - 14.5 %) 21.9 H 22.1 H Plt Count (130 - 400 /CUMM) 303 319 MPV (7.4 - 10.4 FL) 7.3 L 7.7 Segmented Neutrophils (42.2 - 75.2 %) 83 H 95 H Lymphocytes (20.5 - 51.1 %) 6 L 1 L Monocytes (1.7 - 9.3 %) 8 4 Eosinophils (0 - 5.0 %) 1 Metamyelocytes (0.0 - 1.0 %) 2 H Nucleated RBCs (0.0 - 0.0 /100WBC) 53 H 62 H Platelet Estimate (ADEQUATE) ADEQUATE VERIFIED BY SMEAR Polychromasia 1+ 1+ Hypochromic-Microcytic 2+ Poikilocytosis 1+ 2+ Anisocytosis 2+ Target Cells 2+ 2+ PUBS MCHC (33.0 - 37.0 G/DL) 33.3 32.7 L Retic Count (0.5 - 2.0 %) 6.07 H Other Body Source Fld Total RBCs Counted (%) 100 03/06 03/06 03/06 0700 0700 0400 Chemistry Sodium (137 - 145 mmol/L) 135 L Potassium (3.5 - 5.1 mmol/L) 3.6 Chloride (98 - 107 mmol/L) 103 Carbon Dioxide (22 - 30 mmol/L) 23 Anion Gap (5 - 16) 9 BUN (7 - 17 mg/dL) 44 H Creatinine (0.5 - 1.0 mg/dL) 2.9 H Estimated GFR (>60 ml/min) 16 L Glucose (65 - 99 mg/dL) 94 Calcium (8.4 - 10.2 mg/dL) 8.8 Phosphorus (2.5 - 4.5 mg/dL) 4.6 H Magnesium (1.6 - 2.3 mg/dL) 1.8 Total Bilirubin (0.2 - 1.3 mg/dL) 0.4 AST (14 - 36 U/L) 50 H ALT (9 - 52 U/L) 39 Albumin (3.5 - 5.0 g/dL) 2.3 L Coagulation PT (9.4 - 12.5 SEC) 12.0 INR (0.90 - 1.19) 1.14 Hematology CBC w Diff MAN DIFF ORDERED WBC (4.8 - 10.8 /CUMM) 21.0 H RBC (4.20 - 5.40 /CUMM) 2.98 L Hgb (12.0 - 16.0 G/DL) 8.2 L Hct (37 - 47 %) 25.2 L MCV (81.0 - 99.0 FL) 84.6 MCH (27.0 - 31.0 PG) 27.6 RDW (11.5 - 14.5 %) 21.9 H Plt Count (130 - 400 /CUMM) 325 MPV (7.4 - 10.4 FL) 7.6 Segmented Neutrophils (42.2 - 75.2 %) 85 H Band Neutrophils (0.0 - 5.0 %) 1 Lymphocytes (20.5 - 51.1 %) 10 L Monocytes (1.7 - 9.3 %) 3 Eosinophils (0 - 5.0 %) 1 Nucleated RBCs (0.0 - 0.0 /100WBC) 57 H Platelet Estimate (ADEQUATE) ADEQUATE Polychromasia 1+ Hypochromic-Microcytic 1+ Poikilocytosis 3+ Target Cells 1+ Ovalocytes 1+ Stomatocytes FEW [place] Cells RARE Elliptocytes 1+ Schistocytes RARE PUBS MCHC (33.0 - 37.0 G/DL) 32.6 L Other Body Source Fluid WBC Cancelled Fld Total RBCs Counted (%) Cancelled 100 Fluid Glucose Cancelled Fluid Total Protein Cancelled Fluid Albumin Cancelled Fluid LDH Cancelled 11/24 1540 Hematology CBC w Diff NO MAN DIFF REQ WBC (4.8 - 10.8 /CUMM) 19.1 H RBC (4.20 - 5.40 /CUMM) 3.05 L Hgb (12.0 - 16.0 G/DL) 8.5 L Hct (37 - 47 %) 25.8 L MCV (81.0 - 99.0 FL) 84.6 MCH (27.0 - 31.0 PG) 27.9 RDW (11.5 - 14.5 %) 21.3 H Plt Count (130 - 400 /CUMM) 322 MPV (7.4 - 10.4 FL) 7.9 PUBS MCHC (33.0 - 37.0 G/DL) 33.0 Imaging/Other Studies: Chest x-ray reviewed TTE CONCLUSIONS 1. Small and possibly underfilled left ventricle. 2. Mild left ventricular hypertrophy. 3. Hyperdynamic EF of 80% with impaired LV relaxation. 4. Mildly hypokinetic right ventricle. 5. Trace mitral regurgitation. 6. Mild tricuspid regurgitation. 7. Mild aortic regurgitation. 8. Mild pulmonic regurgitation. 9. Severe pulmonary hypertension. 10. Small left pleural effusion.
--- NOTE | 2016-11-27 11:33 | PN- Infect Dx ---
Subjective Subjective: Afebrile. She denies left breast pain and denies any other complaints. She was on BiPAP overnight. Objective Last 24 Hrs of Vital Signs/I&O Vital Signs Date Time Temp Pulse Resp B/P Pulse O2 O2 Flow FiO2 Ox Delivery Rate 11/27 0545 69 97 11/27 0400 96 BIPAP 45% 11/27 0322 67 96 11/27 0028 54 98 03/ 0000 96 BIPAP 45% 11/27 0000 97.0 62 28 110/50 96 BIPAP 45% 11/26 2233 93 BIPAP 45% 11/26 2229 77 93 11/26 2000 95 Nasal 5.0L Cannula 11/26 1945 48 95 11/26 1630 65 94 11/26 1600 94 BIPAP 40% 11/26 1600 98.1 63 23 97/42 94 BIPAP 40% 11/26 1350 93 BIPAP 40% 11/26 1333 69 94 Intake & Output 11/27 1600 11/27 0800 0308 0000 Intake Total 80 160 Output Total 380 350 Balance -300 -190 Intake, Oral 80 160 Number 1 Bowel Movements Output, Other 40 Output, Urine 340 350 Patient 148 lb Weight Physical Exam Other Physical Findings: She appears chronically ill but in no acute distress Lungs clear anteriorly Heart regular rhythm with no murmur Abdomen distended, nontender with positive bowel sounds; cholecystostomy tube in place with 20 mL output yesterday and 40 mL overnight Extremities no cyanosis, clubbing or edema Sanchez catheter remains in place Results Last 24 Hours of Lab Results: Laboratory Tests 11/27 11/27 0430 0425 Blood Gas pH (7.35 - 7.45 PH) 7.25 *L pCO2 (35 - 45 TORR) 46 H pO2 (80 - 100 TORR) 66 L HCO3 (21 - 28 MEQ/L) 20 L ABG O2 Sat (Measured) (>96.0 %) 92.0 L P-50 (Temp Corrected) Y Carboxyhemoglobin (1.5 - 5.0 %) 0.3 L O2 Concentration % 45% Temperature (97.0 - 100.0 FARH) 97.0 Respiration Rate (BPM) 28 O2 Delivery Method VISION-FFM Vent Mode ST Expiratory Pressure (CM H2O P) 6 Inspiratory Pressure (CM H2O P) 16 Chemistry Sodium (137 - 145 mmol/L) 136 L Potassium (3.5 - 5.1 mmol/L) 3.7 Chloride (98 - 107 mmol/L) 108 H Carbon Dioxide (22 - 30 mmol/L) 20 L Anion Gap (5 - 16) 9 BUN (7 - 17 mg/dL) 41 H Creatinine (0.5 - 1.0 mg/dL) 2.9 H Estimated GFR (>60 ml/min) 16 L Glucose (65 - 99 mg/dL) 67 Calcium (8.4 - 10.2 mg/dL) 8.6 Phosphorus (2.5 - 4.5 mg/dL) 4.2 Magnesium (1.6 - 2.3 mg/dL) 1.8 Total Bilirubin (0.2 - 1.3 mg/dL) 0.4 AST (14 - 36 U/L) 33 ALT (9 - 52 U/L) 29 Albumin (3.5 - 5.0 g/dL) 2.1 L Hematology CBC w Diff MAN DIFF ORDERED WBC (4.8 - 10.8 /CUMM) 15.8 H RBC (4.20 - 5.40 /CUMM) 2.74 L Hgb (12.0 - 16.0 G/DL) 7.7 L Hct (37 - 47 %) 23.1 L MCV (81.0 - 99.0 FL) 84.3 MCH (27.0 - 31.0 PG) 27.9 RDW (11.5 - 14.5 %) 22.2 H Plt Count (130 - 400 /CUMM) 289 MPV (7.4 - 10.4 FL) 8.0 Segmented Neutrophils (42.2 - 75.2 %) 91 H Lymphocytes (20.5 - 51.1 %) 3 L Monocytes (1.7 - 9.3 %) 3 Myelocytes (0 - 0 %) 3 H Nucleated RBCs (0.0 - 0.0 /100WBC) 39 H Platelet Estimate (ADEQUATE) ADEQUATE Hypochromic-Microcytic 2+ Poikilocytosis 2+ Anisocytosis 2+ Target Cells 2+ PUBS MCHC (33.0 - 37.0 G/DL) 33.1 Miscellaneous Phlebotomy Draw Site RIGHT RADIAL 11/26 11/26 11/26 1820 1430 1410 Blood Gas pH (7.35 - 7.45 PH) 7.27 *L 7.25 *L pCO2 (35 - 45 TORR) 43 46 H pO2 (80 - 100 TORR) 66 L 61 L HCO3 (21 - 28 MEQ/L) 19 L 20 L ABG O2 Sat (Measured) (>96.0 %) 92.0 L 90.0 L P-50 (Temp Corrected) N Carboxyhemoglobin (1.5 - 5.0 %) 0.2 L 0.7 L O2 Concentration % 40% 40 Temperature (97.0 - 100.0 FARH) 98.1 97.1 Respiration Rate (BPM) 28 28 O2 Delivery Method BIPAP BIPAP Vent Mode ST ST Expiratory Pressure (CM H2O P) 6 6 Inspiratory Pressure (CM H2O P) 16 16 Coagulation APTT Cancelled Miscellaneous Phlebotomy Draw Site RIGHT RADIAL RIGHT RADIAL Last 24 Hours of Jun Results: No recent cultures Assessment/Plan Impression: Overall status remains poor, though her respiratory status has overall improved, with blood pressure stable off Dobutamine. She remains afebrile with white blood cell count increased from yesterday but overall decreased now off antibiotics after 9 days of Zosyn for presumed acute cholecystitis now 9 days status post placement of cholecystostomy tube. She has had several loose, guaiac positive stools reported and, with increased white blood cell count, would rule out C. difficile. Suggestion: 1. Stool for C. difficile 2. Would remove Sanchez catheter if okay with Renal 3. Continue to follow off antibiotics
--- NOTE | 2016-11-27 15:08 | NUR ---
LATE ENTRY: [id number]: PT IN BED. ALERT, SLOW SPEECH, ORIENTED. NSR ON MONITOR. AFEBRILE. VSS. 3L NC IN PLACE. DENIES SOB, NO DISTRESS NOTED. LOOSE BLACK BM'S X2. CHINCHILLA IN PLACE DRAINING YELLOW URINE, LOW URINE OUTPUT FOR SHIFT, 220ML. MD MARTÍNEZ AWARE. NO NEW ORDERS AT THIS TIME. SKIN INTACT, GENERALIZED EDEMA +2. HEALING WOUNDS TO UPPER BACK. BOTTOM INTACT. ALPS IN PLACE. #20 RH. PT RECEIVED 1 UNIT PRBC TODAY FOR H/H 7.7/23.1 TOLERATING PO INTAKE, FEED. DAUGHTER AT BEDSIDE. PT TURNED AND REPOSITIONED. QUADRAPLEGIC, HOWEVER CAN MOVE RIGHT FOOT AND RIGHT HAND SLIGHTLY. WILL MONITOR.
[2016-11-27 16:00] VITALS: BP 108/58
--- NOTE | 2016-11-27 18:36 | PN- Cardiology ---
Subjective Subjective: * Afshan is doing better and denies any chest discomfort, lightheadedness of shortness of breath. * Maintaining a normal BP off pressors * sinus rhythm * creatinine 2.9 * she continues to be acidotic with a low pO2 Objective Vital Signs and I&Os Vital Signs Date Time Temp Pulse Resp B/P Pulse O2 O2 Flow FiO2 Ox Delivery Rate 11/27 1655 93 Nasal 3.0L Cannula 11/27 1600 Nasal 3.0L Cannula 11/27 1600 97.4 78 16 108/58 94 Nasal 3.0L Cannula 11/27 1200 Nasal 2.0L Cannula 11/27 1100 93 Nasal 3.0L Cannula 11/27 1000 Nasal 2.0L Cannula 11/27 1000 97.7 73 18 108/60 91 Nasal 2.0L Cannula 11/27 0545 69 97 11/27 0400 96 BIPAP 45% 11/27 0322 67 96 11/27 0028 54 98 11/27 0000 96 BIPAP 45% 11/27 0000 97.0 62 28 110/50 96 BIPAP 45% 11/26 2233 93 BIPAP 45% 11/26 2229 77 93 11/26 2000 95 Nasal 5.0L Cannula 11/26 1945 48 95 Intake & Output 11/27 1600 08 0800 03/08 0000 11/26 1600 11/26 0800 11/26 0000 Intake Total 1060 80 160 500 329.6 514.4 Output Total 250 380 350 120 170 200 Balance 810 -300 -190 380 159.6 314.4 Intake, Blood 340 Product Intake, IV 400 279.6 314.4 Intake, Oral 720 80 160 100 50 200 Number 2 1 2 2 1 Bowel Movements Output, Other 30 40 20 50 Output, Urine 220 340 350 120 150 150 Patient 148 lb 153 lb Weight Physical Exam: General: WD/ WN female in NAD; alert and oriented x 3 Neck: no JVD Heart: RRR w/o murmur Lungs: clear bilaterally Extremities: no edema Assessment/Plan Assessment/Plan * Avoid over diuresis since this patient's high pulmonary pressures will make her pre-load dependent. * Consider an increase in thyroid supplementation. * Agree with beginning epogen. At present her anticoagulation is being held on the presumption that there is a significant GI bleed with guaiac positive stools. * Decreased O2 sats and pO2. Bipap as needed. Continue telemetry? Yes
--- NOTE | 2016-11-27 23:44 | NUR ---
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
[2016-11-28] VITALS: BP 118/58
--- NOTE | 2016-11-28 02:51 | NUR ---
WITH PATIENT SLEEPING SOUNDLY- INSTRUCTIONAL TECHNOLOGIST SHOWS NON-SUSTAINED SINUS BRADYCARDIA AT TIMES, HEART RATE LOW 48/MIN NOTED
[2016-11-28 05:02] LABS: MEAN CORPUSCULAR HGB 27.6 PG (27.0-31.0); MEAN CORPUSCULAR HGB CONC 32.8 G/DL (33.0-37.0); MEAN CORPUSCULAR VOLUME 84.2 FL (81.0-99.0); MEAN PLATELET VOLUME 8.8 FL (7.4-10.4); PLATELET COUNT 276 /CUMM (130-400); RBC DISTRIBUTION WIDTH 20.5 % (11.5-14.5); RED BLOOD CELL CT 3.34 /CUMM (4.20-5.40)
[2016-11-28 05:13] LABS: HEMATOCRIT 28.1 % (37-47)
[2016-11-28 05:40] LABS: WHITE BLOOD CELL COUNT 15.7 /CUMM (4.8-10.8)
--- NOTE | 2016-11-28 06:47 | NUR ---
NO CHANGES IN STATUS NOTED OVERNIGHT, PATIENT HAS REQUESTED TO REMAIN ON BIPAP UNTIL BREAKFAST THIS AM, SLEEPING IN NAPS, AWAITING AM MD ROUNDS
--- NOTE | 2016-11-28 07:05 | PN- Resident CRCU ---
Subjective HPI/CRCU Issues: Patient is in the ICU for sepsis, respiratory distress. I followed up and examined the patient today. She is resting comfortably in bed , is alert, oriented, speaking softly, and does not have any complaints. She did require BiPAP ventilation since yesterday evening until this morning 0830hrs. The last four hours was continued upon patient's request. Objective Vital Signs & I&O Last 8 Hrs of Vitals and I&O: Vital Signs Date Time Temp Pulse Resp B/P Pulse O2 O2 Flow FiO2 Ox Delivery Rate 11/28 1200 97 Nasal 4.0L Cannula 11/29 0730 97.6 56 31 118/50 98 BIPAP 45% 11/28 0826 56 99 11/28 0800 98 BIPAP 45% 11/28 0617 68 97 11/28 0400 98 BIPAP 45% 11/28 0326 54 99 11/28 0057 65 98 11/28 0000 97 BIPAP 45% 11/28 0000 97.7 65 28 118/58 97 BIPAP 45% 11/27 2122 89 93 11/27 2000 96 Nasal 4.0L Cannula 11/27 1655 93 Nasal 3.0L Cannula 11/27 1600 Nasal 3.0L Cannula 11/27 1600 97.4 78 16 108/58 94 Nasal 3.0L Cannula Intake & Output 11/28 1600 11/28 0800 11/28 0000 Intake Total 150 790 Output Total 348 282 Balance -198 508 Intake, Blood 340 Product Intake, Oral 150 440 Intake, Tube 10 Irrigant Output, Other 30 12 Output, Urine 318 270 Patient 62.652 kg Weight Exam General Appearance: well developed/nourished, no apparent distress, alert, comfortable, overweight Other Physical Findings: Other Physical Findings: Head: atraumatic, normal appearance Respiratory: decreased breath sounds b/l Cardiovascular: regular rate/rhythm, normal S1 and S2, no murmurs, rubs or gallops Gastrointestinal: soft, non-tender, positive bowel sounds, cholecystostomy in place at RUQ Extremities: no edema over bilateral lower extremities Sanchez Still Needed? Yes Nutrition Nutrition: P.O. diet, decreased appetite Current Medications: Current Medications Sig/Kobi Start time Last Medication Dose Route Stop Time Status Admin Acetaminophen 650 MG Q6P PRN 11/14 1615 AC 11/26 PO 0949 Acetaminophen 1,000 MG Q6P PRN 11/14 1615 AC 11/21 IV 0854 Allopurinol 50 MG DAILY 11/15 1000 AC 11/28 PO 0902 Baclofen 2.5 MG BID 11/14 2200 AC 11/28 PO 0903 Cholecalciferol 1,000 IU DAILY 11/15 1000 AC 11/28 PO 0902 Epoetin Aldair 10,000 UNITS Q168 11/26 1915 AC 11/26 SC 2028 Ferrous Sulfate 325 MG BID 11/14 2200 AC 11/28 PO 0903 Gabapentin 100 MG DAILY 11/14 1600 AC 11/28 PO 0902 Lactobacillus 1 CAP DAILY 11/15 1000 AC 11/28 Acidophilus PO 0902 Levothyroxine Sodium 0.075 MG DAILY AC 11/27 0700 AC 11/28 PO 0620 Magnesium Oxide 400 MG ONE ONE 11/28 0745 DC 11/28 PO 11/28 0746 0903 Melatonin 3 MG AT BEDTIME PRN 11/19 1545 AC PO Morphine Sulfate 1 MG Q4 HRS NEEDED PRN 11/21 1200 DC IV Multivitamins 1 TAB DAILY 11/15 1000 AC 11/28 Therapeutic PO 0902 Omeprazole 40 MG DAILY AC 11/20 0954 AC 11/28 PO 0620 Sodium Bicarbonate 1,300 MG BID 11/27 1132 AC 11/28 PO 0902 Sodium Chloride 250 ML BOLUS ONE 11/28 1215 DC 11/28 IV 11/28 1314 1215 Impression/Plan Impression/Problem List Impression: 81 yo female with pmh of HTN, hypothyroidism, HLD, CKD, quadriplegia s/p spinal cord stroke, DVT/PE on eliquis, Renal artery stenosis s/p renal artery stenting, who is a resident at [facility] was brought in with fever and possible UTI. Now status post cholecystectomy tube. 1. Acute cholecystitis status post cholecystostomy tube * s/p cholecystostomy tube. Draining bile 72 mL in the last 24 hours. * Culture results from biliary drainage shows no growth. Previous urine cultures grew Morganella and Providentia. Repeat urine cultures negative so far. * ID consult appreciated * Continue off abx * Repeat Chest CT showed no evidence of acute hematoma/hemorrhage within the abdomenor pelvis, Percutaneous cholecystostomy catheter in satisfactory position. Small pleural effusions (right larger left) and compressive atelectasis/consolidation in lower lobes, unchanged compared to 11/18/2016 2. Acute hypoxic respiratory failure * Patient had hypoxic episode yesterday and required BiPAP ventillation. She felt more comfortable in BiPAP and requested for few more hours than deemed required by the RT. Now on NC, saturting well. * The cause of hypoxia could be secondary to bilateral pleural effusions / atelectasis seen on CT scan * Patient has been having intermittant episodes of dark colored stools, so Heparin has been placed on hold for now. * Pulmonology consult appreciated 3. Acute kidney injury/ATN from sepsis/anasarca, low albumin * Creatinine 2.5 this morning, getting better slowly * IV fluids discontinued * Closely monitor BEP. * Nephrology on board, following 4. Cholelithiasis with hydropic gallbladder: * s/p cholecystostomy tube placement by IR with biliary drainage culture, follow up culture. * Bili culture showed no growth 5. Acute on chronic anemia : * GI consult appreciated regarding multiple dark colored stool, which is also Guiac positive. Her h/h and vitals have been stable, but had required one unit of PRBC ysterday on 11/27/16. * Patient continued on Protonix and probiotic * Patient tolerating a heart healthy diet. * Holding Eliquis and Plavix for anemia and guaiac positive stools 6. Altered mental status/lethargy * CT negative for any acute pathology. 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 c/w baclofen for spasticity & gabapentin 8. Hx of DVT/PE s/p IVC filter: * IV heparin has been on hold due to black stools, PTT was >120 then, but had already come down to 50s after holding it * Doppler lower extremities was negative for DVT 9. Hypothyroidism: * c/w levothyroxine 50mcg daily 10. HTN: Continue Procardia. DVT ppx: po eliquis/IV heparin on hold, ALPS for now, full code. Problem List: 1. Acute respiratory failure with hypoxia and hypercarbia 2. Acute diastolic CHF (congestive heart failure) 3. Acute blood loss anemia 4. Malnutrition 5. Acute cholecystitis 6. Sepsis Pain Ratin Pain Location: - Pain Plan: prn Tomorrow's Labs & Rationales: ICU lab bundle, CBC to follow up on electrolytes, and follow up on sepsis Plan DVT/Prophylaxis: mechanical Code Status: Full Code DVT/Prophylaxis: mechanical Code Status: Full Code
[2016-11-28 08:30] VITALS: BP 118/50
--- NOTE | 2016-11-28 10:24 | PN- Nephrology ---
Assessment/Plan Assessment: LILLIE - Clinical situation and labs c/w ATN from sepsis. Urine sediment bland ( some WBC's in the setting of UTI). Creatinine continues to slowly improve ( difficult to say if improvement in last day was a direct effect of the blood/ volume). Anasarca - low albumin - likely negative acute phase reactant and nutritional. Cannot be explained by nephrosis or liver disease (at least based on imaging). Would be hesitant to diurese given her underlying pulm HTN and that her trace anasarca may not accurately affect her intravascular volume status. Anemia - s/p. Low retic index - started on Epogen. Iron stores were OK ( started on PO iron). Metabolic acidosis - In the setting of impaired kidney function. Suggestion: -Cont to monitor BMP -f/u haptoglobin -Cont weekly Epogen to target Hg 10-11 -Cont sodium bicarb 1300mg BID -No clear need for diuretics at this time -No indication for dialysis at this time Please call [phone] with ?'s Subjective Subjective: SCr down to 2.5 Had gotten 1U PRBC Hg 7.7->9.2 Pt without any specific complaints today Daughter at bedside feels like she's doing better Objective Vital Signs and I&Os Vital Signs Date Time Temp Pulse Resp B/P Pulse O2 O2 Flow FiO2 Ox Delivery Rate 11/28 0830 97.6 56 31 118/50 98 BIPAP 45% 11/28 0826 56 99 11/28 0800 98 BIPAP 45% 11/28 0617 68 97 11/28 0400 98 BIPAP 45% 11/28 0326 54 99 11/28 0057 65 98 03 0000 97 BIPAP 45% 11/28 0000 97.7 65 28 118/58 97 BIPAP 45% 11/27 2122 89 93 11/27 2000 96 Nasal 4.0L Cannula 11/27 1655 93 Nasal 3.0L Cannula 11/27 1600 Nasal 3.0L Cannula 11/27 1600 97.4 78 16 108/58 94 Nasal 3.0L Cannula 11/27 1200 Nasal 2.0L Cannula 11/27 1100 93 Nasal 3.0L Cannula Intake & Output 11/28 1600 11/28 0400 11/27 1600 11/27 0400 11/26 1600 11/26 0400 Intake Total 740 225 7624 160 829.6 514.4 Output Total 348 282 630 350 290 200 Balance -198 508 510 -190 539.6 314.4 Intake, Blood 340 340 Product Intake, IV 679.6 314.4 Intake, Oral 150 440 800 160 150 200 Intake, Tube 10 Irrigant Number 2 1 4 1 Bowel Movements Output, Other 30 12 70 20 50 Output, Urine 318 270 560 350 270 150 Patient 138 lb 148 lb 153 lb Weight Physical Exam: Gen - improved appearance HEENT - supple CV - RRR Chest - poor inspiratory effort - clear anteriorly Abd - soft, nontender Ext - trace UE edema Neuro - more alert Current Medications: Current Medications Sig/Kobi Start time Last Medication Dose Route Stop Time Status Admin Acetaminophen 650 MG Q6P PRN 11/14 1615 AC 11/26 PO 0949 Acetaminophen 1,000 MG Q6P PRN 11/14 1615 AC 11/21 IV 0854 Allopurinol 50 MG DAILY 11/15 1000 AC 11/28 PO 0902 Baclofen 2.5 MG BID 11/14 2200 AC 11/28 PO 0903 Cholecalciferol 1,000 IU DAILY 11/15 1000 AC 11/28 PO 0902 Epoetin Aldair 10,000 UNITS Q168 11/26 1915 AC 11/26 SC 2028 Ferrous Sulfate 325 MG BID 11/14 2200 AC 11/28 PO 0903 Gabapentin 100 MG DAILY 11/14 1600 AC 11/28 PO 0902 Lactobacillus 1 CAP DAILY 11/15 1000 AC 11/28 Acidophilus PO 0902 Levothyroxine Sodium 0.075 MG DAILY AC 11/27 0700 AC 11/28 PO 0620 Magnesium Oxide 400 MG ONE ONE 11/28 0745 DC 11/28 PO 11/28 0746 0903 Melatonin 3 MG AT BEDTIME PRN 11/19 1545 AC PO Morphine Sulfate 1 MG Q4 HRS NEEDED PRN 11/21 1200 DC IV Multivitamins 1 TAB DAILY 11/15 1000 AC 11/28 Therapeutic PO 0902 Omeprazole 40 MG DAILY AC 11/20 0954 AC 11/28 PO 0620 Sodium Bicarbonate 1,300 MG BID 11/27 1132 AC 11/28 PO 0902 Results Pertinent Lab Results: Laboratory Tests 11/28 11/28 11/27 0445 0415 0500 Blood Gas pH (7.35 - 7.45 PH) 7.27 *L pCO2 (35 - 45 TORR) 47 H pO2 (80 - 100 TORR) 73 L HCO3 (21 - 28 MEQ/L) 21 ABG O2 Sat (Measured) (>96.0 %) 94.0 L P-50 (Temp Corrected) Y Carboxyhemoglobin (1.5 - 5.0 %) 0.3 L O2 Concentration % 45% Temperature (97.0 - 100.0 FARH) 96.6 L Respiration Rate (BPM) 28 O2 Delivery Method VISION-FFM Vent Mode ST Expiratory Pressure (CM H2O P) 6 Inspiratory Pressure (CM H2O P) 16 Chemistry Sodium (137 - 145 mmol/L) 135 L Potassium (3.5 - 5.1 mmol/L) 4.5 Chloride (98 - 107 mmol/L) 108 H Carbon Dioxide (22 - 30 mmol/L) 20 L Anion Gap (5 - 16) 7 BUN (7 - 17 mg/dL) 42 H Creatinine (0.5 - 1.0 mg/dL) 2.5 H Estimated GFR (>60 ml/min) 18 L Glucose (65 - 99 mg/dL) 61 L Calcium (8.4 - 10.2 mg/dL) 9.0 Phosphorus (2.5 - 4.5 mg/dL) 4.5 Magnesium (1.6 - 2.3 mg/dL) 1.8 Total Bilirubin (0.2 - 1.3 mg/dL) 0.5 AST (14 - 36 U/L) 37 H ALT (9 - 52 U/L) 26 Albumin (3.5 - 5.0 g/dL) 2.2 L Hematology CBC w Diff MAN DIFF ORDERED WBC (4.8 - 10.8 /CUMM) 15.7 H RBC (4.20 - 5.40 /CUMM) 3.34 L Hgb (12.0 - 16.0 G/DL) 9.2 L Hct (37 - 47 %) 28.1 L MCV (81.0 - 99.0 FL) 84.2 MCH (27.0 - 31.0 PG) 27.6 RDW (11.5 - 14.5 %) 20.5 H Plt Count (130 - 400 /CUMM) 276 MPV (7.4 - 10.4 FL) 8.8 Segmented Neutrophils (42.2 - 75.2 %) 88 H Band Neutrophils (0.0 - 5.0 %) 2 Lymphocytes (20.5 - 51.1 %) 8 L Monocytes (1.7 - 9.3 %) 2 Nucleated RBCs (0.0 - 0.0 /100WBC) 46 H Platelet Estimate (ADEQUATE) ADEQUATE Polychromasia 1+ Hypochromic-Microcytic 1+ Poikilocytosis 3+ Target Cells 2+ Ovalocytes 1+ [place] Cells FEW Elliptocytes FEW PUBS MCHC (33.0 - 37.0 G/DL) 32.8 L Haptoglobin Pending Miscellaneous Phlebotomy Draw Site RIGHT RADIAL Other Body Source Fld Total RBCs Counted (%) 100 08 11/27 0430 0425 Blood Gas pH (7.35 - 7.45 PH) 7.25 *L pCO2 (35 - 45 TORR) 46 H pO2 (80 - 100 TORR) 66 L HCO3 (21 - 28 MEQ/L) 20 L ABG O2 Sat (Measured) (>96.0 %) 92.0 L P-50 (Temp Corrected) Y Carboxyhemoglobin (1.5 - 5.0 %) 0.3 L O2 Concentration % 45% Temperature (97.0 - 100.0 FARH) 97.0 Respiration Rate (BPM) 28 O2 Delivery Method VISION-FFM Vent Mode ST Expiratory Pressure (CM H2O P) 6 Inspiratory Pressure (CM H2O P) 16 Chemistry Sodium (137 - 145 mmol/L) 136 L Potassium (3.5 - 5.1 mmol/L) 3.7 Chloride (98 - 107 mmol/L) 108 H Carbon Dioxide (22 - 30 mmol/L) 20 L Anion Gap (5 - 16) 9 BUN (7 - 17 mg/dL) 41 H Creatinine (0.5 - 1.0 mg/dL) 2.9 H Estimated GFR (>60 ml/min) 16 L Glucose (65 - 99 mg/dL) 67 Calcium (8.4 - 10.2 mg/dL) 8.6 Phosphorus (2.5 - 4.5 mg/dL) 4.2 Magnesium (1.6 - 2.3 mg/dL) 1.8 Total Bilirubin (0.2 - 1.3 mg/dL) 0.4 AST (14 - 36 U/L) 33 ALT (9 - 52 U/L) 29 Albumin (3.5 - 5.0 g/dL) 2.1 L Hematology CBC w Diff MAN DIFF ORDERED WBC (4.8 - 10.8 /CUMM) 15.8 H RBC (4.20 - 5.40 /CUMM) 2.74 L Hgb (12.0 - 16.0 G/DL) 7.7 L Hct (37 - 47 %) 23.1 L MCV (81.0 - 99.0 FL) 84.3 MCH (27.0 - 31.0 PG) 27.9 RDW (11.5 - 14.5 %) 22.2 H Plt Count (130 - 400 /CUMM) 289 MPV (7.4 - 10.4 FL) 8.0 Segmented Neutrophils (42.2 - 75.2 %) 91 H Lymphocytes (20.5 - 51.1 %) 3 L Monocytes (1.7 - 9.3 %) 3 Myelocytes (0 - 0 %) 3 H Nucleated RBCs (0.0 - 0.0 /100WBC) 39 H Platelet Estimate (ADEQUATE) ADEQUATE Hypochromic-Microcytic 2+ Poikilocytosis 2+ Anisocytosis 2+ Target Cells 2+ PUBS MCHC (33.0 - 37.0 G/DL) 33.1 Miscellaneous Phlebotomy Draw Site RIGHT RADIAL 11/26 11/26 11/26 11/26 1820 1430 1410 0433 Blood Gas pH (7.35 - 7.45 PH) 7.27 *L 7.25 *L pCO2 (35 - 45 TORR) 43 46 H pO2 (80 - 100 TORR) 66 L 61 L HCO3 (21 - 28 MEQ/L) 19 L 20 L ABG O2 Sat (Measured) (>96.0 %) 92.0 L 90.0 L P-50 (Temp Corrected) N Carboxyhemoglobin (1.5 - 5.0 %) 0.2 L 0.7 L O2 Concentration % 40% 40 Temperature (97.0 - 100.0 FARH) 98.1 97.1 Respiration Rate (BPM) 28 28 O2 Delivery Method BIPAP BIPAP Vent Mode ST ST Expiratory Pressure (CM H2O P) 6 6 Inspiratory Pressure (CM H2O P) 16 16 Coagulation PT (9.4 - 12.5 SEC) 13.0 H INR (0.90 - 1.19) 1.24 H APTT Cancelled Miscellaneous Phlebotomy Draw Site RIGHT RADIAL RIGHT RADIAL 11/26 11/25 0433 1915 Chemistry Sodium (137 - 145 mmol/L) 136 L Potassium (3.5 - 5.1 mmol/L) 3.7 Chloride (98 - 107 mmol/L) 107 Carbon Dioxide (22 - 30 mmol/L) 20 L Anion Gap (5 - 16) 9 BUN (7 - 17 mg/dL) 42 H Creatinine (0.5 - 1.0 mg/dL) 3.0 H Estimated GFR (>60 ml/min) 15 L Glucose (65 - 99 mg/dL) 83 Calcium (8.4 - 10.2 mg/dL) 8.5 Phosphorus (2.5 - 4.5 mg/dL) 4.3 Magnesium (1.6 - 2.3 mg/dL) 1.7 Iron (37 - 170 ug/dL) 62 TIBC (265 - 497 ug/dL) 198 L Ferritin (11.1 - 264 ng/mL) 599.0 H Total Bilirubin (0.2 - 1.3 mg/dL) 0.4 AST (14 - 36 U/L) 40 H ALT (9 - 52 U/L) 32 Albumin (3.5 - 5.0 g/dL) 2.3 L Vitamin B12 (239 - 931 pg/mL) > 1000 H Folate (2.76 - 20.0 ng/mL) 15.9 Coagulation APTT (25 - 37 SEC) > 120 *H > 120 *H Hematology CBC w Diff MAN DIFF ORDERED MAN DIFF ORDERED WBC (4.8 - 10.8 /CUMM) 12.6 H 17.6 H RBC (4.20 - 5.40 /CUMM) 2.84 L 3.03 L Hgb (12.0 - 16.0 G/DL) 8.0 L 8.4 L Hct (37 - 47 %) 24.0 L 25.5 L MCV (81.0 - 99.0 FL) 84.5 84.3 MCH (27.0 - 31.0 PG) 28.2 27.6 RDW (11.5 - 14.5 %) 21.9 H 22.1 H Plt Count (130 - 400 /CUMM) 303 319 MPV (7.4 - 10.4 FL) 7.3 L 7.7 Segmented Neutrophils (42.2 - 75.2 %) 83 H 95 H Lymphocytes (20.5 - 51.1 %) 6 L 1 L Monocytes (1.7 - 9.3 %) 8 4 Eosinophils (0 - 5.0 %) 1 Metamyelocytes (0.0 - 1.0 %) 2 H Nucleated RBCs (0.0 - 0.0 /100WBC) 53 H 62 H Platelet Estimate (ADEQUATE) ADEQUATE VERIFIED BY SMEAR Polychromasia 1+ 1+ Hypochromic-Microcytic 2+ Poikilocytosis 1+ 2+ Anisocytosis 2+ Target Cells 2+ 2+ PUBS MCHC (33.0 - 37.0 G/DL) 33.3 32.7 L Retic Count (0.5 - 2.0 %) 6.07 H Other Body Source Fld Total RBCs Counted (%) 100 Imaging/Other Studies: No new imaging
--- NOTE | 2016-11-28 10:49 | PN- Infect Dx ---
Subjective Subjective: Afebrile without complaints. She was on BiPAP overnight. Objective Last 24 Hrs of Vital Signs/I&O Vital Signs Date Time Temp Pulse Resp B/P Pulse O2 O2 Flow FiO2 Ox Delivery Rate 11/29 0730 97.6 56 31 118/50 98 BIPAP 45% 11/28 0826 56 99 11/28 0800 98 BIPAP 45% 11/28 0617 68 97 11/28 0400 98 BIPAP 45% 11/28 0326 54 99 11/28 0057 65 98 11/28 0000 97 BIPAP 45% 11/28 0000 97.7 65 28 118/58 97 BIPAP 45% 11/27 2122 89 93 11/27 2000 96 Nasal 4.0L Cannula 11/27 1655 93 Nasal 3.0L Cannula 11/27 1600 Nasal 3.0L Cannula 11/27 1600 97.4 78 16 108/58 94 Nasal 3.0L Cannula 11/27 1200 Nasal 2.0L Cannula 11/27 1100 93 Nasal 3.0L Cannula Intake & Output 11/28 1600 11/28 0800 11/28 0000 Intake Total 150 790 Output Total 348 282 Balance -198 508 Intake, Blood 340 Product Intake, Oral 150 440 Intake, Tube 10 Irrigant Output, Other 30 12 Output, Urine 318 270 Patient 138 lb Weight Physical Exam Other Physical Findings: She appears more alert and awake in no acute distress Lungs scattered rhonchi bilaterally Heart regular rhythm with no murmur Abdomen cholecystostomy tube in place with 80 mL output yesterday and 30 mL overnight Extremities no cyanosis, clubbing or edema Sanchez catheter remains in place Results Last 24 Hours of Lab Results: Laboratory Tests 11/28 11/28 0445 0415 Blood Gas pH (7.35 - 7.45 PH) 7.27 *L pCO2 (35 - 45 TORR) 47 H pO2 (80 - 100 TORR) 73 L HCO3 (21 - 28 MEQ/L) 21 ABG O2 Sat (Measured) (>96.0 %) 94.0 L P-50 (Temp Corrected) Y Carboxyhemoglobin (1.5 - 5.0 %) 0.3 L O2 Concentration % 45% Temperature (97.0 - 100.0 FARH) 96.6 L Respiration Rate (BPM) 28 O2 Delivery Method VISION-FFM Vent Mode ST Expiratory Pressure (CM H2O P) 6 Inspiratory Pressure (CM H2O P) 16 Chemistry Sodium (137 - 145 mmol/L) 135 L Potassium (3.5 - 5.1 mmol/L) 4.5 Chloride (98 - 107 mmol/L) 108 H Carbon Dioxide (22 - 30 mmol/L) 20 L Anion Gap (5 - 16) 7 BUN (7 - 17 mg/dL) 42 H Creatinine (0.5 - 1.0 mg/dL) 2.5 H Estimated GFR (>60 ml/min) 18 L Glucose (65 - 99 mg/dL) 61 L Calcium (8.4 - 10.2 mg/dL) 9.0 Phosphorus (2.5 - 4.5 mg/dL) 4.5 Magnesium (1.6 - 2.3 mg/dL) 1.8 Total Bilirubin (0.2 - 1.3 mg/dL) 0.5 AST (14 - 36 U/L) 37 H ALT (9 - 52 U/L) 26 Albumin (3.5 - 5.0 g/dL) 2.2 L Hematology CBC w Diff MAN DIFF ORDERED WBC (4.8 - 10.8 /CUMM) 15.7 H RBC (4.20 - 5.40 /CUMM) 3.34 L Hgb (12.0 - 16.0 G/DL) 9.2 L Hct (37 - 47 %) 28.1 L MCV (81.0 - 99.0 FL) 84.2 MCH (27.0 - 31.0 PG) 27.6 RDW (11.5 - 14.5 %) 20.5 H Plt Count (130 - 400 /CUMM) 276 MPV (7.4 - 10.4 FL) 8.8 Segmented Neutrophils (42.2 - 75.2 %) 88 H Band Neutrophils (0.0 - 5.0 %) 2 Lymphocytes (20.5 - 51.1 %) 8 L Monocytes (1.7 - 9.3 %) 2 Nucleated RBCs (0.0 - 0.0 /100WBC) 46 H Platelet Estimate (ADEQUATE) ADEQUATE Polychromasia 1+ Hypochromic-Microcytic 1+ Poikilocytosis 3+ Target Cells 2+ Ovalocytes 1+ [place] Cells FEW Elliptocytes FEW PUBS MCHC (33.0 - 37.0 G/DL) 32.8 L Miscellaneous Phlebotomy Draw Site RIGHT RADIAL Other Body Source Fld Total RBCs Counted (%) 100 Last 24 Hours of Jun Results: No recent cultures Assessment/Plan Impression: Overall status poor, though stable, with respiratory status improved and with improving renal function. She remains afebrile but white blood cell count remains elevated now off antibiotics, with no obvious focus of infection status post 9 days of Zosyn for presumed acute cholecystitis now 10 days status post placement of cholecystostomy tube for presumed acute cholecystitis. She has had several loose, guaiac positive stools reported and, with increased white blood cell count, would rule out C. difficile. Suggestion: 1. Stool for C. difficile 2. Would remove Sanchez catheter if okay with Renal 3. Continue to follow off antibiotics
--- NOTE | 2016-11-28 11:36 | PN- CRCU ---
Subjective HPI/Critical Care Issues: pt seen and examined blood work improved lethargic chronic paresis family meeting held for goals of care Objective Current Medications: Current Medications Sig/Kobi Start time Last Medication Dose Route Stop Time Status Admin Acetaminophen 650 MG Q6P PRN 11/14 1615 AC 11/26 PO 0949 Acetaminophen 1,000 MG Q6P PRN 11/14 1615 AC 11/21 IV 0854 Allopurinol 50 MG DAILY 11/15 1000 AC 11/28 PO 0902 Baclofen 2.5 MG BID 11/14 2200 AC 11/28 PO 0903 Cholecalciferol 1,000 IU DAILY 11/15 1000 AC 11/28 PO 0902 Epoetin Aldair 10,000 UNITS Q168 11/26 1915 AC 11/26 SC 2028 Ferrous Sulfate 325 MG BID 11/14 2200 AC 11/28 PO 0903 Gabapentin 100 MG DAILY 11/14 1600 AC 11/28 PO 0902 Lactobacillus 1 CAP DAILY 11/15 1000 AC 11/28 Acidophilus PO 0902 Levothyroxine Sodium 0.075 MG DAILY AC 11/27 0700 AC 11/28 PO 0620 Magnesium Oxide 400 MG ONE ONE 11/28 0745 DC 11/28 PO 11/28 0746 0903 Melatonin 3 MG AT BEDTIME PRN 11/19 1545 AC PO Morphine Sulfate 1 MG Q4 HRS NEEDED PRN 11/21 1200 DC IV Multivitamins 1 TAB DAILY 11/15 1000 AC 11/28 Therapeutic PO 0902 Omeprazole 40 MG DAILY AC 11/20 0954 AC 11/28 PO 0620 Sodium Bicarbonate 1,300 MG BID 11/27 1132 AC 11/28 PO 0902 Vital Signs & I&O Last 24 Hrs of Vitals and I&O: Vital Signs Date Time Temp Pulse Resp B/P Pulse O2 O2 Flow FiO2 Ox Delivery Rate 11/29 0730 97.6 56 31 118/50 98 BIPAP 45% 11/28 0826 56 99 11/28 0800 98 BIPAP 45% 11/28 0617 68 97 11/28 0400 98 BIPAP 45% 11/28 0326 54 99 11/28 0057 65 98 11/28 0000 97 BIPAP 45% 11/28 0000 97.7 65 28 118/58 97 BIPAP 45% 11/27 2122 89 93 11/27 2000 96 Nasal 4.0L Cannula 11/27 1655 93 Nasal 3.0L Cannula 11/27 1600 Nasal 3.0L Cannula 11/27 1600 97.4 78 16 108/58 94 Nasal 3.0L Cannula 11/27 1200 Nasal 2.0L Cannula Intake & Output 11/28 1600 11/28 0800 11/28 0000 Intake Total 150 790 Output Total 348 282 Balance -198 508 Intake, Blood 340 Product Intake, Oral 150 440 Intake, Tube 10 Irrigant Output, Other 30 12 Output, Urine 318 270 Patient 138 lb Weight Exam Other Physical Findings: gen awake heent ncat cvs s1, s2 lungs rare rhonchi, dimnished bases abd soft, bs+ ext edematous neuro paresis Results Last 24 Hrs of Lab Results: Laboratory Tests 11/28/16 0445: pH 7.27 *L, pCO2 47 H, pO2 73 L, HCO3 21, ABG O2 Sat (Measured) 94.0 L, P-50 (Temp Corrected) Y, Carboxyhemoglobin 0.3 L, O2 Concentration % 45%, Temperature 96.6 L, Respiration Rate 28, O2 Delivery Method VISION-FFM, Vent Mode ST, Expiratory Pressure 6, Inspiratory Pressure 16, Phlebotomy Draw Site RIGHT RADIAL 11/28/16 0415: Anion Gap 7, Estimated GFR 18 L, Glucose 61 L, Calcium 9.0, Phosphorus 4.5, Magnesium 1.8, Total Bilirubin 0.5, AST 37 H, ALT 26, Albumin 2.2 L, CBC w Diff MAN DIFF ORDERED, RBC 3.34 L, MCV 84.2, MCH 27.6, RDW 20.5 H, MPV 8.8, Segmented Neutrophils 88 H, Band Neutrophils 2, Lymphocytes 8 L, Monocytes 2, Nucleated RBCs 46 H, Platelet Estimate ADEQUATE, Polychromasia 1+, Hypochromic- Microcytic 1+, Poikilocytosis 3+, Target Cells 2+, Ovalocytes 1+, [place] Cells FEW , Elliptocytes FEW, PUBS MCHC 32.8 L, Fld Total RBCs Counted 100 Impression/Plan Impression/Plan Impression/Plan: Impression 81 year old woman - s/p cholecystostomy tube for acute cholecystitis - hypoxemic respiratory failure requiring bipap use - metabolic acidosis - LILLIE - acute on chronic anemia with blood loss - 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 Plan Respiratory - bipap nocturnally and as needed during the day, primarily to reduce the work of breathing - abg repeat 11/28 unless clinically indicated earlier - keep spo2 >92% ID - cholecystomy tube monitoring - f/u ID recommendations - off abx CVS - f/u cardiology input - heparin gtt stopped Heme - monitor cbc, goal hgb >8 or if bleeding Metabolic - f/u nephrology recommendations - strict ins/outs Alimentary - on diet, f/u nutrition recommendations Neuro - paresis secondary to spinal cva DVT prophylaxis at all times with ALPS, given anemia only mechanical prophylaxis at this time, has IVC filter D/w pt and daughter TTS 35 min Code status - currently full - will have ongoing discussions regarding goals of care Family discussion held, will re-address again tomorrow to determine code status. Tele DG Code Status: Full Code
[2016-11-28 12:00] VITALS: BP 86/40
--- NOTE | 2016-11-28 15:52 | PN- Cardiology ---
Subjective Subjective: * Patient eats about 50% of her food. No complaints of chest discomfort or shortness of breath. * Hemodynamically stable in NSR. * creatinine improved to 2.5 * WBC increased to 15.7 * H/H improved to 9.2/28.1 * Patient remains acidotic although pO2 is mildly improved. Objective Vital Signs and I&Os Vital Signs Date Time Temp Pulse Resp B/P Pulse O2 O2 Flow FiO2 Ox Delivery Rate 11/28 1357 92 Nasal 4.0L Cannula 11/28 1200 97.0 56 18 86/40 97 Nasal 4.0L Cannula 11/28 1200 97 Nasal 4.0L Cannula 11/28 0830 97.6 56 31 118/50 98 BIPAP 45% 11/28 0826 56 99 11/28 0800 98 BIPAP 45% 11/28 0617 68 97 11/28 0400 98 BIPAP 45% 11/28 0326 54 99 11/28 0057 65 98 11/28 0000 97 BIPAP 45% 11/28 0000 97.7 65 28 118/58 97 BIPAP 45% 11/27 2122 89 93 11/27 2000 96 Nasal 4.0L Cannula 11/27 1655 93 Nasal 3.0L Cannula 11/27 1600 Nasal 3.0L Cannula 11/27 1600 97.4 78 16 108/58 94 Nasal 3.0L Cannula Intake & Output 11/28 1600 11/28 0800 11/28 0000 11/27 1600 11/27 0800 11/27 0000 Intake Total 700 181 473 4940 80 160 Output Total 630 348 282 250 380 350 Balance 70 -198 508 810 -300 -190 Intake, Blood 340 340 Product Intake, IV 250 Intake, Oral 440 150 440 720 80 160 Intake, Tube 10 10 Irrigant Number 1 2 1 Bowel Movements Output, Other 30 30 12 30 40 Output, Urine 600 318 270 220 340 350 Patient 138 lb 148 lb Weight Physical Exam: General: WD/ WN female in NAD; alert and oriented x 3 Neck: no JVD Heart: RRR w/o murmur Lungs: clear bilaterally Extremities: no edema Assessment/Plan Assessment/Plan * Encourage oral intake. Patient now appears hemodynamically stable in NSR off all pressors. * Continue thyroid supplementation and Epogen. Patient continues to have guaiac positive stools. Continue telemetry? Yes
[2016-11-28 16:34] VITALS: BP 108/60
[2016-11-28 20:25] VITALS: BP 108/58
[2016-11-28 22:38] VITALS: BP 138/60
[2016-11-29 08:13] LABS: HEMATOCRIT 29.7 % (37-47); MEAN CORPUSCULAR HGB 27.2 PG (27.0-31.0); MEAN CORPUSCULAR HGB CONC 32.3 G/DL (33.0-37.0); MEAN PLATELET VOLUME 9.2 FL (7.4-10.4); PLATELET COUNT 294 /CUMM (130-400); RBC DISTRIBUTION WIDTH 20.5 % (11.5-14.5); RED BLOOD CELL CT 3.54 /CUMM (4.20-5.40)
[2016-11-29 08:32] VITALS: BP 134/60
--- NOTE | 2016-11-29 09:13 | PN- Pulmonary ---
Subjective HPI/Critical Care Issues: pt seen and examined transferred out of icu doing well creatinine continues to improve no new events bipap overnight Objective Current Medications: Current Medications Sig/Kobi Start time Last Medication Dose Route Stop Time Status Admin Acetaminophen 650 MG Q6P PRN 11/14 1615 AC 11/26 PO 0949 Acetaminophen 1,000 MG Q6P PRN 11/14 1615 AC 11/21 IV 0854 Allopurinol 50 MG DAILY 11/15 1000 AC 11/28 PO 0902 Baclofen 2.5 MG BID 11/14 2200 AC 11/28 PO 2132 Cholecalciferol 1,000 IU DAILY 11/15 1000 AC 11/28 PO 0902 Epoetin Aldair 10,000 UNITS Q168 11/26 1915 AC 11/26 SC 2028 Ferrous Sulfate 325 MG BID 11/14 2200 AC 11/28 PO 2132 Gabapentin 100 MG DAILY 11/14 1600 AC 11/28 PO 0902 Lactobacillus 1 CAP DAILY 11/15 1000 AC 11/28 Acidophilus PO 0902 Levothyroxine Sodium 0.075 MG DAILY AC 11/27 0700 AC 11/29 PO 0909 Melatonin 3 MG AT BEDTIME PRN 11/19 1545 AC PO Morphine Sulfate 1 MG Q4 HRS NEEDED PRN 11/21 1200 DC IV Multivitamins 1 TAB DAILY 11/15 1000 AC 11/28 Therapeutic PO 0902 Omeprazole 40 MG DAILY AC 11/20 0954 AC 11/29 PO 0909 Sodium Bicarbonate 1,300 MG BID 11/27 1132 AC 11/28 PO 2132 Sodium Chloride 250 ML BOLUS ONE 11/28 1215 DC 11/28 IV 11/28 1314 1215 Vital Signs & I&O Last 24 Hrs of Vitals and I&O: Vital Signs Date Time Temp Pulse Resp B/P Pulse O2 O2 Flow FiO2 Ox Delivery Rate 11/29 0832 98.0 68 24 134/60 97 BIPAP 45% 11/29 0032 75 97 11/29 0000 BIPAP 45% 11/28 2311 85 95 11/28 2238 96.7 90 18 138/60 93 Nasal 5.0L Cannula 11/28 2100 96 Nasal 4.0L Cannula 11/28 2025 77 108/58 11/28 1634 97.8 75 16 108/60 95 Nasal 4.0L Cannula 11/28 1600 95 Nasal 4.0L Cannula 11/28 1357 92 Nasal 4.0L Cannula 11/28 1200 97.0 56 18 86/40 97 Nasal 4.0L Cannula 11/28 1200 97 Nasal 4.0L Cannula Intake & Output 11/29 1600 11/29 0800 11/29 0000 Intake Total 200 Output Total 277 200 Balance -277 0 Intake, Oral 200 Output, Other 25 Output, Urine 252 200 Exam Other Physical Findings: gen awake heent ncat cvs s1, s2 lungs rare rhonchi, dimnished bases abd soft, bs+ ext edematous neuro paresis Results Last 24 Hrs of Lab Results: Laboratory Tests 11/29/16 0645: Anion Gap 7, Estimated GFR 20 L, Glucose 58 L, Calcium 9.2, Phosphorus 4.0, Magnesium 1.9, Total Bilirubin 0.4, AST 29, ALT 26, Albumin 2.3 L, CBC w Diff MAN DIFF ORDERED, WBC Pending, RBC Pending, Hgb Pending, Hct Pending, MCV Pending, MCH Pending, RDW Pending, Plt Count Pending, MPV Pending, Segmented Neutrophils Pending, PUBS MCHC Pending Impression/Plan Impression/Plan Impression/Plan: Impression 81 year old woman - s/p cholecystostomy tube for acute cholecystitis - hypoxemic respiratory failure requiring bipap use - metabolic acidosis - LILLIE - acute on chronic anemia with blood loss - 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 Plan - bipap nocturnally and as needed during the day, primarily to reduce the work of breathing - abg repeat 11/28 unless clinically indicated earlier - keep spo2 >92% - cholecystomy tube monitoring - f/u ID recommendations - off abx - f/u cardiology input - heparin gtt stopped - monitor cbc, goal hgb >8 or if bleeding, on epogen - f/u nephrology recommendations - strict ins/outs - on diet, f/u nutrition recommendations - paresis secondary to spinal cva DVT prophylaxis at all times with ALPS, given anemia only mechanical prophylaxis at this time, has IVC filter D/w pt and daughter Code status - currently full - will have ongoing discussions regarding goals of care Family discussion held, will re-address again tomorrow to determine code status.
--- NOTE | 2016-11-29 09:23 | Transfer of Care Summary ---
Hospital Course Course Hospital Course: Patient was transfered from the telemetry unit to ICU on 11/22/16, so progress so far is listed on previous transfer fo care summary. 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 She received IV Zosyn. 11/22/2016, she developed acute hypoxic hypercarbic respiratory failure, requiring BiPAP in ICU transfer. Issues dealt with during ICU stay are as follows: #Acute hypoxic hypercarbic respiratory failure -Possibly due to bilateral pleural effusions/atelectasis as seen in the CAT scan -She required BiPAP ventillation for a night and again on the night of 11/26/16, but was saturating well above 90% with nasal canula. -On the night of 11/27/16, she required BiPAP again, but was comfortable and able to maintain her oxygen saturation above 90% with nasal cannula. -Currently, she is saturating well with nasal cannula in situ. #History of recurrent pulmonary embolism, DVTs, status post IVC filter placement -Was taking Eliquis at home, was on IV Heparin awaiting pleural tap, but Heparin is currently on hold due to MS bleeding. -She does require anticoagulation as soon as possible. #Bilateral pleural effusion -She used to take Eliquis at home, but was held in telemetry considering the possibility of pleural effusion tapping, but was on IV heparin, which was stopped due to lower GI bleeding and episodes of epistaxis. -Dr. Cespedes did an ultrasound to check for fluid by the bedside and did not find much to drain, so the paln was held off. IV heparin was already on hold, so was not restarted due to ongoing MS bleeding. #Hypotension, in the setting of diuresis, with possible preload dependence with severe pulmonary hypertension -Per Traffic I Manager Dr Kirk, she was started on dobutamine drip and a repeat echocardiogram was ordered on 11/22/16 -On 11/25/16, patient was unable to maintain her blood pressure after taking the dobutamine drip off for few hours, so was put back on Dobutamine after trying with small IV bolus. -On 11/26/16, she was taken off Dobutamine, and she was able to maintain her blood pressure afterwards. #Per rectal bleeding, and epistaxis -We'll the patient was waiting for ultrasound guided pleural fluid tapping and was on IV heparin, she had at least 2 episodes of epistaxis with clots coming out, and at least 2 episodes of per rectal bleeding. IV heparin was held. GI consulted, and per the consult, no procedures were done unless the patient would be bleeding profusely that changes her vitals, or unless she is completely stable to have a GI workup. IV heparin was restarted after making sure that the H&H was not dropping, vitals were stable, and he was hemoccult negative. But she had another episode of black stool, so IV heparin is now on hold. Of note, she is on ferrous sulfate supplement that can turn stool dark. #Acute on chronic anemia, requiring blood transfusion -She has chronic anemia, but she had an episode of black stool on 11/26/16. Although her vitals were stable, H&H dropped slightly, GI services were called, who did not want any intervention at that point of time as long as she is not bleeding profusely or her vitals are unstable because of it. However, one unit of PRBC on the same day. Target Hb decided then was 8, considering her cardiac history. #Acute kidney injury/metabolic acidosis -Likely ATN secondary to sepsis, improving -Was treated with fluids, bicarbonate -Low retic index, so started on Epogen weekly -Metabolic acidosis, resolving -No clear need for diuresis, or dialysis at this time -Still following nephrology #Dyselectrolytemia -Mg being repalced, Potassiumm being replaced everyday as needed #Hypothyroidism -Continued Synthroid 75mcg PO daily #Cholelithiasis with hydropic gallbladder -After percutaneous cholecystostomy, T-tube has been in situ with drainage by gravity -bile cultures have been negative -Home medication of Allopurinol, Gabapentin, baclofen, ferrous sulfate, cholecalciferol, multivitamin, PPI continued #DVT ppx: was IV heparin when she came to the ICU, but was held due to bleeding issues #Diet: per oral, Heart healthy #Code status: Full code as of now, but family (daughter) was counseled about the prognosis and care home care. She saif she will discuss this with the patient and her other sister, and think about the change in code status. Assessment/Plan: As mentioned above.
[2016-11-29 09:28] LABS: WHITE BLOOD CELL COUNT 15.4 /CUMM (4.8-10.8)
--- NOTE | 2016-11-29 10:13 | PN- Housestaff ---
[facility] 0949: Subjective Follow-up For: S/p cholecystostomy tube for acute cholecystitis Hypoxemic respiratory failure Metabolic acidosis LILLIE Acute on chronic anemia with blood loss Paresis secondary to spinal cord stroke Complaints: no complaints Subjective: Patient was transferred out of ICU overnight. She is status post cholecystostomy tube for acute cholecystitis. No events overnight. Patient slept well on the BiPAP throughout the night. Awake and alert this morning. Review of Systems Constitutional: Reports: malaise, weakness. EENTM: Reports: no symptoms. Cardiovascular: Reports: no symptoms. Respiratory: Reports: short of breath. Gastrointestinal: Reports: no symptoms. Genitourinary: Reports: no symptoms. Musculoskeletal: Reports: no symptoms. Skin: Reports: no symptoms. Neurological/Psychological: Reports: no symptoms. Objective Last 24 Hrs of Vital Signs/I&O Vital Signs Date Time Temp Pulse Resp B/P Pulse O2 O2 Flow FiO2 Ox Delivery Rate 11/29 0919 95 Nasal 4.0L Cannula 11/29 0832 98.0 68 24 134/60 97 BIPAP 45% 11/29 0032 75 97 11/29 0000 BIPAP 45% 11/28 2311 85 95 11/28 2238 96.7 90 18 138/60 93 Nasal 5.0L Cannula 11/28 2100 96 Nasal 4.0L Cannula 11/28 2025 77 108/58 11/28 1634 97.8 75 16 108/60 95 Nasal 4.0L Cannula 11/28 1600 95 Nasal 4.0L Cannula 11/28 1357 92 Nasal 4.0L Cannula 11/28 1200 97.0 56 18 86/40 97 Nasal 4.0L Cannula 11/28 1200 97 Nasal 4.0L Cannula Intake & Output 11/29 1600 11/29 0800 11/29 0000 Intake Total 200 Output Total 277 200 Balance -277 0 Intake, Oral 200 Output, Other 25 Output, Urine 252 200 Physical Exam General Appearance: Alert, Cooperative, No Acute Distress Skin: No Rashes, No Breakdown, CHOLECYSTOSTOMY TUBE IN THE RIGHT UPPER QUADRANT. HEENT: Atraumatic, PERRLA, EOMI Neck: No JVD Lymphatic: Cervical nl Cardiovascular: Regular Rate, Normal S1, Normal S2, No Murmurs Lungs: DECREASED BREATH SOUNDS BILATERALLY, Abdomen: CHOLECYSTOSTOMY TUBE IN THE RIGHT LOWER QUADRANT Neurological: QUADRIPLEGIC AT BASELINE Extremities: No Cyanosis, Normal Pulses, TRACE BILATERAL PEDAL EDEMA Vascular: Normal Pulses Assessment/Plan Assessment: 81 yo female with pmh of HTN, hypothyroidism, HLD, CKD, quadriplegia s/p spinal cord stroke, DVT/PE on eliquis, Renal artery stenosis s/p renal artery stenting, who is a resident at [facility] was brought in with fever and possible UTI. Now status post cholecystectomy tube. 1. Acute cholecystitis status post cholecystostomy tube # day * s/p cholecystostomy tube. Draining bile to 252 ml overnight * White count hovering around 15.4 over the past few days * Culture results from biliary drainage shows no growth. Previous urine cultures grew Morganella and Providentia. Repeat urine cultures negative so far. * IV Zosyn stopped after 9 days Now watching off antibiotics. * C. difficile negative * ID following 2. Acute hypoxic respiratory failure: Likely secondary to bilateral pleural effusions and atelectasis * BiPAP nocturnally and as needed during the day * We will keep oxygen above 92% * Last Chest x-ray done November 26 showed b/l pleural effusions and pulm congestion. * Bilateral pleural effusions were consistent with CHF. She was on a dobutamine drip for improving cardiac function but it was later stopped. Echocardiogram showed hyperdynamic EF of 80% with impaired LV relaxation and underfilled left ventricle and mildly hypokinetic right ventricle. * Patient was on IV heparin but had one episode of dark colored stool so Heparin has been placed on hold for now. She has been consistently guaiac positive. * No thoracentesis is done as effusions are too small to tap * Pulmonology following 3. Acute kidney injury/ATN from sepsis/anasarca, low albumin * Cr improving 2.3 this morning * IV fluids discontinued * Closely monitor BEP. * Continued on Neupogen target hemoglobin 10-11 * Continue sodium bicarbonate 1300 twice a day * No clear indications of diuretics at this time * No dialysis is indicated at this time * Nephrology on board 4. Cholelithiasis with hydropic gallbladder: * s/p cholecystostomy tube placement by IR 1DA with biliary drainage culture, follow up culture. * Bili culture showed no growth 5. Acute on chronic anemia : * Continues to have guaiac positive stools * Evaluated by GI, no plans of acute intervention at this time (yesterday) * Patient continued on Protonix and probiotic * Patient tolerating a heart healthy diet. * Continue to hold Eliquis and Plavix for anemia and guaiac positive stools 6. Altered mental status/lethargy * CT negative for any acute pathology. 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 c/w baclofen for spasticity & gabapentin 8. Hx of DVT/PE s/p IVC filter: * IV heparin was stopped due to melena and guaiac positive stools * We'll continue FOR now * Patient has an IVC filter placed in 2012 9. Hypothyroidism: * c/w levothyroxine 50mcg daily 10. HTN: Continue Procardia. DVT ppx: po eliquis on hold, ALPS for now, full code. Family meeting today regarding goals of care. Patient's daughter Luz discuss with the family regarding making patient DNR/DNI. There has been multiple discussions in the past about the same, but patient always wanted to be full code. Problem List: 1. Acute respiratory failure with hypoxia and hypercarbia 2. Guaiac positive stools 3. Acute hypoxemic respiratory failure 4. Acute kidney injury Pain Ratin Pain Location: RUQ Pain Goal: Pain 4 or less Pain Plan: IV morphine, baclofen, gabapentin. Tomorrow's Labs & Rationales: CBC. Infection BeP... Acute kidney injury.. Consulting Request: Consulting Specialty: Neurology Consulting Physician: Dr. Rodriguez Reason for Consult: LILLIE, metabolic acidosis MARGO METZ,AMY 11/29/16 1418: Attending MD Review Statement Attending Statement Attending MD Statement: examined this patient, discuss w/resident/PA/GRADES 1 THRU 6 HOME TEACHER, agreed w/resident/PA/GRADES 1 THRU 6 HOME TEACHER, discussed with family, reviewed EMR data (avail), discussed with nursing, discussed with case mgmt, reviewed images Attending Assessment/Plan: 81-year-old very complex female is here with a cholecystostomy tube for acute cholecystitis, Lillie on CKD, hypotensive status post dobutamine for right heart failure in the ICU, IVC filter with no anticoagulation due to bleeding, 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 As per all the consultants involved patient is slowly improving. Her creatinine is slowly getting better, she remains with a cholecystostomy tube and stable off antibiotics, H&H is stable and we are trying to titrate off the BiPAP. Pulmonary is addressing CODE STATUS with family and will follow-up closely.
--- NOTE | 2016-11-29 11:51 | PN- Nephrology ---
Assessment/Plan Assessment: LILLIE - Clinical situation and labs c/w ATN from sepsis. Urine sediment bland ( some WBC's in the setting of UTI). Creatinine continues to slowly improve and seems to be irrespective of other therapies (i.e. fluid status). Anasarca - low albumin - likely negative acute phase reactant and nutritional. Cannot be explained by nephrosis or liver disease (at least based on imaging). Anemia - s/p. Low retic index - started on Epogen. Iron stores were OK ( started on PO iron). Metabolic acidosis - In the setting of impaired kidney function - at goal. Suggestion: -Cont to monitor BMP -Cont sodium bicarb 1300mg BID - can likely stop sodium bicarb once SCr hopefully normalizes -Cont weekly Epogen to target Hg 10-11 - can likely stop Epogen once SCr hopefully normalizes -No clear need for diuretics at this time -No indication for dialysis at this time Will sign off. Please reconsult PRN. Please call [phone] with any ?'s Subjective Subjective: SCr continues to improve - now 2.3 - 1.1L UOP BP improved to 134/60 today Hg 9.6 Out of ICU Pt says that she feels good Objective Vital Signs and I&Os Vital Signs Date Time Temp Pulse Resp B/P Pulse O2 O2 Flow FiO2 Ox Delivery Rate 11/29 0919 95 Nasal 4.0L Cannula 11/29 0832 98.0 68 24 134/60 97 BIPAP 45% 11/29 0032 75 97 11/29 0000 BIPAP 45% 11/28 2311 85 95 11/28 2238 96.7 90 18 138/60 93 Nasal 5.0L Cannula 11/28 2100 96 Nasal 4.0L Cannula 11/28 2025 77 108/58 11/28 1634 97.8 75 16 108/60 95 Nasal 4.0L Cannula 11/28 1600 95 Nasal 4.0L Cannula 11/28 1357 92 Nasal 4.0L Cannula 11/28 1200 97.0 56 18 86/40 97 Nasal 4.0L Cannula 11/28 1200 97 Nasal 4.0L Cannula Intake & Output 11/29 1600 11/29 0400 11/28 1600 11/28 0400 11/27 1600 11/27 0400 Intake Total 200 160 715 3292 160 Output Total 277 200 978 282 630 350 Balance -277 0 -128 508 510 -190 Intake, Blood 340 340 Product Intake, IV 250 Intake, Oral 200 590 440 800 160 Intake, Tube 10 10 Irrigant Number 1 2 1 Bowel Movements Output, Other 25 60 12 70 Output, Urine 252 200 918 270 560 350 Patient 138 lb 148 lb Weight Physical Exam: Gen - improved appearance HEENT - JVP not clearly up CV - RRR Chest - clear anteriorly Abd - soft, nontender Ext - minimal edema mostly in upper extremities Neuro - more alert, responsive Current Medications: Current Medications Sig/Kobi Start time Last Medication Dose Route Stop Time Status Admin Acetaminophen 650 MG Q6P PRN 11/14 1615 AC 11/26 PO 0949 Acetaminophen 1,000 MG Q6P PRN 11/14 1615 AC 11/21 IV 0854 Allopurinol 50 MG DAILY 11/15 1000 AC 11/29 PO 1011 Baclofen 2.5 MG BID 11/14 2200 AC 11/28 PO 2132 Cholecalciferol 1,000 IU DAILY 11/15 1000 AC 11/29 PO 1010 Epoetin Aldair 10,000 UNITS Q168 11/26 1915 AC 11/26 SC 2028 Ferrous Sulfate 325 MG BID 11/14 2200 AC 11/29 PO 1010 Gabapentin 100 MG DAILY 11/14 1600 AC 11/29 PO 1010 Lactobacillus 1 CAP DAILY 11/15 1000 AC 11/29 Acidophilus PO 1008 Levothyroxine Sodium 0.075 MG DAILY AC 11/27 0700 AC 11/29 PO 0909 Melatonin 3 MG AT BEDTIME PRN 11/19 1545 AC PO Multivitamins 1 TAB DAILY 11/15 1000 AC 11/29 Therapeutic PO 1010 Omeprazole 40 MG DAILY AC 11/20 0954 AC 11/29 PO 0909 Sodium Bicarbonate 1,300 MG BID 11/27 1132 AC 11/29 PO 1010 Sodium Chloride 250 ML BOLUS ONE 11/28 1215 DC 11/28 IV 11/28 1314 1215 Results Pertinent Lab Results: Laboratory Tests 11/29 11/28 0645 0445 Blood Gas pH (7.35 - 7.45 PH) 7.27 *L pCO2 (35 - 45 TORR) 47 H pO2 (80 - 100 TORR) 73 L HCO3 (21 - 28 MEQ/L) 21 ABG O2 Sat (Measured) (>96.0 %) 94.0 L P-50 (Temp Corrected) Y Carboxyhemoglobin (1.5 - 5.0 %) 0.3 L O2 Concentration % 45% Temperature (97.0 - 100.0 FARH) 96.6 L Respiration Rate (BPM) 28 O2 Delivery Method VISION-FFM Vent Mode ST Expiratory Pressure (CM H2O P) 6 Inspiratory Pressure (CM H2O P) 16 Chemistry Sodium (137 - 145 mmol/L) 138 Potassium (3.5 - 5.1 mmol/L) 3.9 Chloride (98 - 107 mmol/L) 106 Carbon Dioxide (22 - 30 mmol/L) 24 Anion Gap (5 - 16) 7 BUN (7 - 17 mg/dL) 39 H Creatinine (0.5 - 1.0 mg/dL) 2.3 H Estimated GFR (>60 ml/min) 20 L Glucose (65 - 99 mg/dL) 58 L Calcium (8.4 - 10.2 mg/dL) 9.2 Phosphorus (2.5 - 4.5 mg/dL) 4.0 Magnesium (1.6 - 2.3 mg/dL) 1.9 Total Bilirubin (0.2 - 1.3 mg/dL) 0.4 AST (14 - 36 U/L) 29 ALT (9 - 52 U/L) 26 Albumin (3.5 - 5.0 g/dL) 2.3 L Hematology CBC w Diff MAN DIFF ORDERED WBC (4.8 - 10.8 /CUMM) 15.4 H RBC (4.20 - 5.40 /CUMM) 3.54 L Hgb (12.0 - 16.0 G/DL) 9.6 L Hct (37 - 47 %) 29.7 L MCV (81.0 - 99.0 FL) 84.0 MCH (27.0 - 31.0 PG) 27.2 RDW (11.5 - 14.5 %) 20.5 H Plt Count (130 - 400 /CUMM) 294 MPV (7.4 - 10.4 FL) 9.2 Segmented Neutrophils (42.2 - 75.2 %) 90 H Lymphocytes (20.5 - 51.1 %) 4 L Monocytes (1.7 - 9.3 %) 4 Metamyelocytes (0.0 - 1.0 %) 2 H Nucleated RBCs (0.0 - 0.0 /100WBC) 47 H Platelet Estimate (ADEQUATE) VERIFIED BY SMEAR Polychromasia 1+ Poikilocytosis 2+ Anisocytosis 2+ Target Cells 2+ PUBS MCHC (33.0 - 37.0 G/DL) 32.3 L Miscellaneous Phlebotomy Draw Site RIGHT RADIAL 11/28 11/27 0415 0500 Chemistry Sodium (137 - 145 mmol/L) 135 L Potassium (3.5 - 5.1 mmol/L) 4.5 Chloride (98 - 107 mmol/L) 108 H Carbon Dioxide (22 - 30 mmol/L) 20 L Anion Gap (5 - 16) 7 BUN (7 - 17 mg/dL) 42 H Creatinine (0.5 - 1.0 mg/dL) 2.5 H Estimated GFR (>60 ml/min) 18 L Glucose (65 - 99 mg/dL) 61 L Calcium (8.4 - 10.2 mg/dL) 9.0 Phosphorus (2.5 - 4.5 mg/dL) 4.5 Magnesium (1.6 - 2.3 mg/dL) 1.8 Total Bilirubin (0.2 - 1.3 mg/dL) 0.5 AST (14 - 36 U/L) 37 H ALT (9 - 52 U/L) 26 Albumin (3.5 - 5.0 g/dL) 2.2 L Hematology CBC w Diff MAN DIFF ORDERED WBC (4.8 - 10.8 /CUMM) 15.7 H RBC (4.20 - 5.40 /CUMM) 3.34 L Hgb (12.0 - 16.0 G/DL) 9.2 L Hct (37 - 47 %) 28.1 L MCV (81.0 - 99.0 FL) 84.2 MCH (27.0 - 31.0 PG) 27.6 RDW (11.5 - 14.5 %) 20.5 H Plt Count (130 - 400 /CUMM) 276 MPV (7.4 - 10.4 FL) 8.8 Segmented Neutrophils (42.2 - 75.2 %) 88 H Band Neutrophils (0.0 - 5.0 %) 2 Lymphocytes (20.5 - 51.1 %) 8 L Monocytes (1.7 - 9.3 %) 2 Nucleated RBCs (0.0 - 0.0 /100WBC) 46 H Platelet Estimate (ADEQUATE) ADEQUATE Polychromasia 1+ Hypochromic-Microcytic 1+ Poikilocytosis 3+ Target Cells 2+ Ovalocytes 1+ [place] Cells FEW Elliptocytes FEW PUBS MCHC (33.0 - 37.0 G/DL) 32.8 L Haptoglobin (43 - 212 mg/dL) 89 Other Body Source Fld Total RBCs Counted (%) 100 11/27 11/27 0430 0425 Blood Gas pH (7.35 - 7.45 PH) 7.25 *L pCO2 (35 - 45 TORR) 46 H pO2 (80 - 100 TORR) 66 L HCO3 (21 - 28 MEQ/L) 20 L ABG O2 Sat (Measured) (>96.0 %) 92.0 L P-50 (Temp Corrected) Y Carboxyhemoglobin (1.5 - 5.0 %) 0.3 L O2 Concentration % 45% Temperature (97.0 - 100.0 FARH) 97.0 Respiration Rate (BPM) 28 O2 Delivery Method VISION-FFM Vent Mode ST Expiratory Pressure (CM H2O P) 6 Inspiratory Pressure (CM H2O P) 16 Chemistry Sodium (137 - 145 mmol/L) 136 L Potassium (3.5 - 5.1 mmol/L) 3.7 Chloride (98 - 107 mmol/L) 108 H Carbon Dioxide (22 - 30 mmol/L) 20 L Anion Gap (5 - 16) 9 BUN (7 - 17 mg/dL) 41 H Creatinine (0.5 - 1.0 mg/dL) 2.9 H Estimated GFR (>60 ml/min) 16 L Glucose (65 - 99 mg/dL) 67 Calcium (8.4 - 10.2 mg/dL) 8.6 Phosphorus (2.5 - 4.5 mg/dL) 4.2 Magnesium (1.6 - 2.3 mg/dL) 1.8 Total Bilirubin (0.2 - 1.3 mg/dL) 0.4 AST (14 - 36 U/L) 33 ALT (9 - 52 U/L) 29 Albumin (3.5 - 5.0 g/dL) 2.1 L Hematology CBC w Diff MAN DIFF ORDERED WBC (4.8 - 10.8 /CUMM) 15.8 H RBC (4.20 - 5.40 /CUMM) 2.74 L Hgb (12.0 - 16.0 G/DL) 7.7 L Hct (37 - 47 %) 23.1 L MCV (81.0 - 99.0 FL) 84.3 MCH (27.0 - 31.0 PG) 27.9 RDW (11.5 - 14.5 %) 22.2 H Plt Count (130 - 400 /CUMM) 289 MPV (7.4 - 10.4 FL) 8.0 Segmented Neutrophils (42.2 - 75.2 %) 91 H Lymphocytes (20.5 - 51.1 %) 3 L Monocytes (1.7 - 9.3 %) 3 Myelocytes (0 - 0 %) 3 H Nucleated RBCs (0.0 - 0.0 /100WBC) 39 H Platelet Estimate (ADEQUATE) ADEQUATE Hypochromic-Microcytic 2+ Poikilocytosis 2+ Anisocytosis 2+ Target Cells 2+ PUBS MCHC (33.0 - 37.0 G/DL) 33.1 Miscellaneous Phlebotomy Draw Site RIGHT RADIAL 11/26 11/26 11/26 1820 1430 1410 Blood Gas pH (7.35 - 7.45 PH) 7.27 *L 7.25 *L pCO2 (35 - 45 TORR) 43 46 H pO2 (80 - 100 TORR) 66 L 61 L HCO3 (21 - 28 MEQ/L) 19 L 20 L ABG O2 Sat (Measured) (>96.0 %) 92.0 L 90.0 L P-50 (Temp Corrected) N Carboxyhemoglobin (1.5 - 5.0 %) 0.2 L 0.7 L O2 Concentration % 40% 40 Temperature (97.0 - 100.0 FARH) 98.1 97.1 Respiration Rate (BPM) 28 28 O2 Delivery Method BIPAP BIPAP Vent Mode ST ST Expiratory Pressure (CM H2O P) 6 6 Inspiratory Pressure (CM H2O P) 16 16 Coagulation APTT Cancelled Miscellaneous Phlebotomy Draw Site RIGHT RADIAL RIGHT RADIAL Imaging/Other Studies: No new imaging
--- NOTE | 2016-11-29 13:34 | PN- Infect Dx ---
Subjective Subjective: Afebrile without complaints. No further diarrhea reported. Objective Last 24 Hrs of Vital Signs/I&O Vital Signs Date Time Temp Pulse Resp B/P Pulse O2 O2 Flow FiO2 Ox Delivery Rate 11/29 0819 95 Nasal 4.0L Cannula 11/29 0832 98.0 68 24 134/60 97 BIPAP 45% 11/29 0032 75 97 11/29 0000 BIPAP 45% 11/28 2311 85 95 11/28 2238 96.7 90 18 138/60 93 Nasal 5.0L Cannula 11/28 2100 96 Nasal 4.0L Cannula 11/28 2025 77 108/58 11/28 1634 97.8 75 16 108/60 95 Nasal 4.0L Cannula 11/28 1600 95 Nasal 4.0L Cannula 11/28 1357 92 Nasal 4.0L Cannula Intake & Output 11/29 1600 11/29 0800 11/29 0000 Intake Total 200 Output Total 277 200 Balance -277 0 Intake, Oral 200 Output, Other 25 Output, Urine 252 200 Physical Exam Other Physical Findings: She is lethargic, minimally responsive today Lungs are clear anteriorly Abdomen is distended, with no obvious tenderness; cholecystostomy tube in place with 60 mL out yesterday and 25 mL overnight Extremities no cyanosis, clubbing or edema Results Last 24 Hours of Lab Results: Laboratory Tests 11/29 644 Chemistry Sodium (137 - 145 mmol/L) 138 Potassium (3.5 - 5.1 mmol/L) 3.9 Chloride (98 - 107 mmol/L) 106 Carbon Dioxide (22 - 30 mmol/L) 24 Anion Gap (5 - 16) 7 BUN (7 - 17 mg/dL) 39 H Creatinine (0.5 - 1.0 mg/dL) 2.3 H Estimated GFR (>60 ml/min) 20 L Glucose (65 - 99 mg/dL) 58 L Calcium (8.4 - 10.2 mg/dL) 9.2 Phosphorus (2.5 - 4.5 mg/dL) 4.0 Magnesium (1.6 - 2.3 mg/dL) 1.9 Total Bilirubin (0.2 - 1.3 mg/dL) 0.4 AST (14 - 36 U/L) 29 ALT (9 - 52 U/L) 26 Albumin (3.5 - 5.0 g/dL) 2.3 L Hematology CBC w Diff MAN DIFF ORDERED WBC (4.8 - 10.8 /CUMM) 15.4 H RBC (4.20 - 5.40 /CUMM) 3.54 L Hgb (12.0 - 16.0 G/DL) 9.6 L Hct (37 - 47 %) 29.7 L MCV (81.0 - 99.0 FL) 84.0 MCH (27.0 - 31.0 PG) 27.2 RDW (11.5 - 14.5 %) 20.5 H Plt Count (130 - 400 /CUMM) 294 MPV (7.4 - 10.4 FL) 9.2 Segmented Neutrophils (42.2 - 75.2 %) 90 H Lymphocytes (20.5 - 51.1 %) 4 L Monocytes (1.7 - 9.3 %) 4 Metamyelocytes (0.0 - 1.0 %) 2 H Nucleated RBCs (0.0 - 0.0 /100WBC) 47 H Platelet Estimate (ADEQUATE) VERIFIED BY SMEAR Polychromasia 1+ Poikilocytosis 2+ Anisocytosis 2+ Target Cells 2+ PUBS MCHC (33.0 - 37.0 G/DL) 32.3 L Last 24 Hours of Jun Results: No recent cultures Assessment/Plan Impression: Overall status poor, though stable, with renal function continuing to improve. She remains afebrile but white blood cell count remains elevated off antibiotics , with no obvious focus of infection now 11 days status post placement of cholecystostomy tube for presumed acute cholecystitis. Suggestion: 1. Remove Sanchez catheter 2. Continue to follow off antibiotics
--- NOTE | 2016-11-29 17:25 | PN- Cardiology ---
Subjective Subjective: * No specific complaints of chest discomfort or shortness of breath. * sinus rhythm * creatinine improved to 2.3 Objective Vital Signs and I&Os Vital Signs Date Time Temp Pulse Resp B/P Pulse O2 O2 Flow FiO2 Ox Delivery Rate 11/29 1644 94 Nasal 4.0L Cannula 11/29 918 95 Nasal 4.0L Cannula 11/30 831 98.0 68 24 134/60 97 BIPAP 45% 11/29 08 89 BIPAP 45% 11/29 0032 75 97 11/29 0000 BIPAP 45% 11/28 2311 85 95 11/28 2238 96.7 90 18 138/60 93 Nasal 5.0L Cannula 11/28 2100 96 Nasal 4.0L Cannula 11/28 2024 77 108/58 Intake & Output 11/29 1600 11/29 0811/29 0000 11/28 1600 11/28 0000 Intake Total 300 200 700 150 790 Output Total 620 277 200 630 348 282 Balance -320 -277 0 70 -198 508 Intake, Blood 340 Product Intake, IV 250 Intake, Oral 300 200 440 150 440 Intake, Tube 10 10 Irrigant Number 2 1 Bowel Movements Output, Other 20 25 30 30 12 Output, Urine 600 252 200 600 318 270 Patient 138 lb Weight Physical Exam: General: WD/ WN female in NAD; alert and oriented x 3 Neck: no JVD Heart: RRR w/o murmur Lungs: clear bilaterally Extremities: no edema Assessment/Plan Assessment/Plan * Encourage oral intake. Patient now appears hemodynamically stable in NSR off all pressors. * Continue thyroid supplementation and Epogen. * H/H is improving. Continue to follow stool guaiacs and H/H. Due to concern for bleeding chronic anticoagulation is being held. Continue telemetry? Yes
[2016-11-30 00:09] VITALS: BP 138/74
--- NOTE | 2016-11-30 07:51 | PN- Housestaff ---
See Addendum Subjective Follow-up For: Sepsis 2/2 acute cholecystitis LILLIE History of DVT Tele-Events Since Last Visit: Sinus rhythm with first degree heart block, 3 beat at 1 am and 2 am. Subjective: Patient seen and examined at bedside. This is my first time evaluating patient and she is mildly lethargic and delayed in response to questioning. She specifically denies chest pain, palpitations, shortness of breath, abdominal pain, nausea and she endorses one bowel movement earlier this AM. Review of Systems Constitutional: Denies: fever. EENTM: Denies: nasal congestion. Cardiovascular: Denies: chest pain, palpitations. Respiratory: Denies: short of breath. Gastrointestinal: Denies: abdominal pain, bloating. Genitourinary: Denies: hematuria. Objective Last 24 Hrs of Vital Signs/I&O Vital Signs Date Time Temp Pulse Resp B/P Pulse O2 O2 Flow FiO2 Ox Delivery Rate 11/30 1058 93 Nasal 4.0L Cannula 11/30 0106 80 94 11/30 0009 96.7 80 28 138/74 94 BIPAP 45% 11/30 0000 Nasal 4.0L Cannula 11/29 2131 88 94 11/29 1644 94 Nasal 4.0L Cannula 11/29 1600 Nasal 4.0L Cannula Intake & Output 11/30 1600 11/30 0800 11/30 0000 Intake Total 120 600 Output Total 30 30 Balance 90 570 Intake, Oral 120 600 Output, Other 30 30 Physical Exam General Appearance: Alert, Cooperative, No Acute Distress Other Physical Findings: Skin: No Rashes, No Breakdown. HEENT: Atraumatic, PERRLA, EOMI Neck: No JVD Lymphatic: Cervical nl Cardiovascular: Regular Rate, Normal S1, Normal S2, No Murmurs Lungs: DECREASED BREATH SOUNDS BILATERALLY, Abdomen: CHOLECYSTOSTOMY TUBE IN THE RIGHT LOWER QUADRANT Neurological: QUADRIPLEGIC AT BASELINE Extremities: No Cyanosis, Normal Pulses, TRACE BILATERAL PEDAL EDEMA Vascular: Normal Pulses Current Medications: Current Medications Sig/Kobi Start time Last Medication Dose Route Stop Time Status Admin Acetaminophen 650 MG Q6P PRN 11/14 1615 AC 11/26 PO 0949 Acetaminophen 1,000 MG Q6P PRN 11/14 1615 AC 11/21 IV 0854 Allopurinol 50 MG DAILY 11/15 1000 AC 11/30 PO 1047 Baclofen 2.5 MG BID 11/14 2200 AC 11/30 PO 1047 Cholecalciferol 1,000 IU DAILY 11/15 1000 AC 11/30 PO 1048 Epoetin Aldair 10,000 UNITS Q168 11/26 1915 AC 11/26 SC 202 Ferrous Sulfate 325 MG BID 11/14 2200 AC 11/30 PO 1048 Gabapentin 100 MG DAILY 11/14 1600 AC 11/30 PO 1048 Lactobacillus 1 CAP DAILY 11/15 1000 AC 11/30 Acidophilus PO 1048 Levothyroxine Sodium 0.075 MG DAILY AC 11/27 0700 AC 11/30 PO 0610 Melatonin 3 MG AT BEDTIME PRN 11/19 1545 AC PO Multivitamins 1 TAB DAILY 11/15 1000 AC 11/30 Therapeutic PO 1048 Omeprazole 40 MG DAILY AC 11/20 0954 AC 11/30 PO 0610 Sodium Bicarbonate 1,300 MG BID 11/27 1132 AC 11/30 PO 1047 Last 24 Hrs of Lab/Jun Results Last 24 Hrs of Labs/Mics: Laboratory Tests 11/30/16 0640: Anion Gap 7, Estimated GFR 25 L, BUN/Creatinine Ratio 17.9, CBC w Diff MAN DIFF ORDERED, RBC 3.38 L, MCV 84.2, MCH 27.1, RDW 20.8 H, MPV 9.7, Segmented Neutrophils 94 H, Lymphocytes 2 L, Monocytes 4, Nucleated RBCs 54 H, Platelet Estimate ADEQUATE, Hypochromic-Microcytic 2+, Poikilocytosis 2+, Anisocytosis 2+ , Target Cells 3+, Schistocytes 1+, PUBS MCHC 32.2 L Assessment/Plan Assessment: 81 yo female with pmh of HTN, hypothyroidism, HLD, CKD, quadriplegia s/p spinal cord stroke, DVT/PE on eliquis, Renal artery stenosis s/p renal artery stenting, who is a resident at [facility] was brought in with fever and possible UTI. Now status post cholecystectomy tube. 1. Acute cholecystitis status post cholecystostomy tube # day12 * s/p cholecystostomy tube, continuing to drain * White count hovering around 15-16 over the past few days * Culture results from biliary drainage shows no growth. Previous urine cultures grew Morganella and Providentia. Repeat urine cultures negative so far. * IV Zosyn stopped after 9 days now watching off antibiotics. Patient afebrile. * C. difficile negative * ID following 2. Acute hypoxic respiratory failure: Likely secondary to bilateral pleural effusions and atelectasis * BiPAP nocturnally and as needed during the day * We will keep oxygen above 92% * Last Chest x-ray done November 26 showed b/l pleural effusions and pulm congestion. * Bilateral pleural effusions were consistent with CHF. She was on a dobutamine drip for improving cardiac function but it was later stopped. Echocardiogram showed hyperdynamic EF of 80% with impaired LV relaxation and underfilled left ventricle and mildly hypokinetic right ventricle. * Patient was on IV heparin but had one episode of dark colored stool so Heparin has been placed on hold for now. She has been consistently guaiac positive. * No thoracentesis is done as effusions are too small to tap * Pulmonology following 3. Acute kidney injury/ATN from sepsis/anasarca, low albumin * Cr improving 1.9 this morning * IV fluids discontinued * Closely monitor BEP. * Continued on Neupogen target hemoglobin 10-11 * Continue sodium bicarbonate 1300 twice a day * No clear indications of diuretics at this time * No dialysis is indicated at this time * Nephrology on board 4. Cholelithiasis with hydropic gallbladder: * s/p cholecystostomy tube placement by IR 1DA with biliary drainage culture, follow up culture. * Bili culture showed no growth 5. Acute on chronic anemia : * Continues to have guaiac positive stools * Evaluated by GI, no plans of acute intervention at this time * Patient continued on Protonix and probiotic * Patient tolerating a heart healthy diet. * Continue to hold Eliquis and Plavix for anemia and guaiac positive stools 6. Altered mental status/lethargy * CT negative for any acute pathology. 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 c/w baclofen for spasticity & gabapentin 8. Hx of DVT/PE s/p IVC filter: * IV heparin was stopped due to melena and guaiac positive stools * We'll continue FOR now * Patient has an IVC filter placed in 2012 9. Hypothyroidism: * c/w levothyroxine 50mcg daily 10. HTN: Continue Procardia. DVT ppx: po eliquis on hold, ALPS for now, full code. Family meeting yesterday regarding goals of care. Patient's daughter Luz discuss with the family regarding making patient DNR/DNI. There has been multiple discussions in the past about the same, but patient always wanted to be full code. Problem List: 1. Cholelithiasis 2. Acute respiratory failure with hypoxia and hypercarbia 3. Guaiac positive stools 4. Acute kidney injury Pain Ratin Pain Location: n/a Pain Goal: Pain 4 or less Pain Plan: IV morphine, baclofen, gabapentin. Tomorrow's Labs & Rationales: CBC (infection), BEP (LILLIE) Consulting Request: Consulting Specialty: Neurology Consulting Physician: Dr. Rodriguez Reason for Consult: LILLIE, metabolic acidosis
[2016-11-30 08:51] LABS: HEMATOCRIT 28.4 % (37-47); MEAN CORPUSCULAR HGB 27.1 PG (27.0-31.0); MEAN CORPUSCULAR HGB CONC 32.2 G/DL (33.0-37.0); MEAN CORPUSCULAR VOLUME 84.2 FL (81.0-99.0); MEAN PLATELET VOLUME 9.7 FL (7.4-10.4); PLATELET COUNT 276 /CUMM (130-400); RBC DISTRIBUTION WIDTH 20.8 % (11.5-14.5); RED BLOOD CELL CT 3.38 /CUMM (4.20-5.40); WHITE BLOOD CELL COUNT 16.9 /CUMM (4.8-10.8)
--- NOTE | 2016-11-30 12:28 | PN- Pulmonary ---
Subjective HPI/Critical Care Issues: The patient is resting comfortably. No issues reported by staff. Objective Current Medications: Current Medications Sig/Kobi Start time Last Medication Dose Route Stop Time Status Admin Acetaminophen 650 MG Q6P PRN 11/14 1615 AC 11/26 PO 0949 Acetaminophen 1,000 MG Q6P PRN 11/14 1615 AC 11/21 IV 0854 Allopurinol 50 MG DAILY 11/15 1000 AC 11/30 PO 1047 Baclofen 2.5 MG BID 11/14 2200 AC 11/30 PO 1047 Cholecalciferol 1,000 IU DAILY 11/15 1000 AC 11/30 PO 1048 Epoetin Aldair 10,000 UNITS Q168 11/26 1915 AC 11/26 SC 2028 Ferrous Sulfate 325 MG BID 11/14 2200 AC 11/30 PO 1048 Gabapentin 100 MG DAILY 11/14 1600 AC 11/30 PO 1048 Lactobacillus 1 CAP DAILY 11/15 1000 AC 11/30 Acidophilus PO 1048 Levothyroxine Sodium 0.075 MG DAILY AC 11/27 0700 AC 11/30 PO 0610 Melatonin 3 MG AT BEDTIME PRN 11/19 1545 AC PO Multivitamins 1 TAB DAILY 11/15 1000 AC 11/30 Therapeutic PO 1048 Omeprazole 40 MG DAILY AC 11/20 0954 AC 11/30 PO 0610 Sodium Bicarbonate 1,300 MG BID 11/27 1132 AC 11/30 PO 1047 Vital Signs & I&O Last 24 Hrs of Vitals and I&O: Vital Signs Date Time Temp Pulse Resp B/P Pulse O2 O2 Flow FiO2 Ox Delivery Rate 11/30 1058 93 Nasal 4.0L Cannula 11/30 0106 80 94 11/30 0009 96.7 80 28 138/74 94 BIPAP 45% 11/30 0000 Nasal 4.0L Cannula 11/29 2131 88 94 11/29 1644 94 Nasal 4.0L Cannula 11/29 1600 Nasal 4.0L Cannula Intake & Output 11/30 1600 11/30 0800 11/30 0000 Intake Total 120 600 Output Total 30 30 Balance 90 570 Intake, Oral 120 600 Output, Other 30 30 Exam General Appearance: alert, awake, comfortable Head: atraumatic, normal appearance Neck: supple Respiratory: bilateral ronchi, decreased air entry at the bases Cardiovascular: S1 and S2 heard Abdomen: normal bowel sounds, soft, non-tender Extremities: bilateral edema Skin: warm/dry Results Last 24 Hrs of Lab Results: Laboratory Tests 11/30/16 0640: Anion Gap 7, Estimated GFR 25 L, BUN/Creatinine Ratio 17.9, CBC w Diff MAN DIFF ORDERED, RBC 3.38 L, MCV 84.2, MCH 27.1, RDW 20.8 H, MPV 9.7, Segmented Neutrophils 94 H, Lymphocytes 2 L, Monocytes 4, Nucleated RBCs 54 H, Platelet Estimate ADEQUATE, Hypochromic-Microcytic 2+, Poikilocytosis 2+, Anisocytosis 2+ , Target Cells 3+, Schistocytes 1+, PUBS MCHC 32.2 L Impression/Plan Impression/Plan Impression/Plan: 1. S/P cholecystostomy tube for acute cholecystitis. 2. Hypoxemic respiratory failure requiring Bipap use. 3. Metabolic acidosis. 4. LILLIE - Cr improving. 5. Persistent leukocytosis. 6. 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 Recommendations: * Continue nocturnal BiPAP. * BiPAP as needed during the day to reduce work of breathing as necessary. * Keep oxygen greater than 92%. * Monitor off antibiotics as per ID. * Continue to monitor for progressive anemia. * Nutrition as tolerated. * DVT prophylaxis with Alps only, due to anemia.
[2016-11-30 15:21] VITALS: BP 122/50
[2016-11-30 23:35] VITALS: BP 124/74
[2016-12-01 08:15] VITALS: BP 138/70
--- NOTE | 2016-12-01 08:46 | PN- Housestaff ---
MARIANNE HOLLOWAY 12/01/16 0846: Subjective Follow-up For: Sepsis 2/2 acute cholecystitis LILLIE History of DVT Tele-Events Since Last Visit: sinus 1 degree HB Subjective: denies chest pain, palpitations, shortness of breath, abdominal pain, daughter at bedside. reported no overnight events Review of Systems Constitutional: Denies: chills, diaphoresis, fever, malaise, weakness, unexplained weight loss. Cardiovascular: Denies: chest pain, edema, orthopena, palpitations, peripheral edema, syncope. Respiratory: Denies: cough, hemoptysis, orthopnea, short of breath, sputum production, stridor, wheezing. Objective Last 24 Hrs of Vital Signs/I&O Vital Signs Date Time Temp Pulse Resp B/P Pulse O2 O2 Flow FiO2 Ox Delivery Rate 12/01 0836 92 Nasal 4.0L Cannula 12/01 0815 96.1 76 16 138/70 92 BIPAP 12/01 0036 84 93 12/01 0000 BIPAP 45% 11/30 2335 96.1 79 32 124/74 91 BIPAP 11/30 2224 84 92 11/30 1655 91 Nasal 4.0L Cannula 11/30 1600 93 Nasal 4.0L Cannula 11/30 1521 42 16 122/50 92 Nasal 4.0L Cannula Intake & Output 12/01 1600 12/01 0800 12/01 0000 Intake Total 200 460 Output Total 8 Balance 200 452 Intake, IV 10 Intake, Oral 200 450 Number 2 Bowel Movements Output, Other 8 Physical Exam General Appearance: Alert, Cooperative, No Acute Distress Cardiovascular: Normal S1, Normal S2, No Murmurs Lungs: b/l decreased BS Abdomen: Normal Bowel Sounds, cholecystotomy tube in place, continues to drain, abd distended. Extremities: No Edema Current Medications: Current Medications Sig/Kobi Start time Last Medication Dose Route Stop Time Status Admin Acetaminophen 650 MG Q6P PRN 11/14 1615 AC 11/26 PO 0949 Acetaminophen 1,000 MG Q6P PRN 11/14 1615 AC 11/21 IV 0854 Allopurinol 50 MG DAILY 11/15 1000 AC 12/01 PO 0956 Baclofen 2.5 MG BID 11/14 2200 AC 12/01 PO 0956 Cholecalciferol 1,000 IU DAILY 11/15 1000 AC 12/01 PO 0957 Epoetin Aldair 10,000 UNITS Q168 11/26 1915 AC 11/26 NE 2028 Ferrous Sulfate 325 MG BID 11/14 2200 AC 12/01 PO 0957 Gabapentin 100 MG DAILY 11/14 1600 AC 12/01 PO 0957 Lactobacillus 1 CAP DAILY 11/15 1000 AC 12/01 Acidophilus PO 0957 Levothyroxine Sodium 0.075 MG DAILY AC 11/27 0700 AC 12/01 PO 0607 Magnesium Oxide 400 MG ONE ONE 12/01 1045 DC PO 12/01 1046 Melatonin 3 MG AT BEDTIME PRN 11/19 1545 AC PO Multivitamins 1 TAB DAILY 11/15 1000 AC 12/01 Therapeutic PO 0957 Omeprazole 40 MG DAILY AC 11/20 0954 AC 12/01 PO 0607 Potassium Chloride 40 MEQ ONCE ONE 12/01 1045 DC PO 12/01 1046 Sodium Bicarbonate 1,300 MG BID 11/27 1132 AC 12/01 PO 0957 Last 24 Hrs of Lab/Jun Results Last 24 Hrs of Labs/Mics: Laboratory Tests 12/01/16 0740: Anion Gap 8, Estimated GFR 27 L, BUN/Creatinine Ratio 17.8, Magnesium 1.7, CBC w Diff MAN DIFF ORDERED, RBC 3.39 L, MCV 84.8, MCH 27.1, RDW 20.9 H, MPV 9.4, Segmented Neutrophils 93 H, Lymphocytes 5 L, Monocytes 2, Nucleated RBCs 32 H , Platelet Estimate ADEQUATE, Hypochromic-Microcytic 2+, Poikilocytosis 2+, Anisocytosis 2+, Target Cells 2+, PUBS MCHC 31.9 L Assessment/Plan Assessment: 81 yo female with pmh of HTN, hypothyroidism, HLD, CKD, quadriplegia s/p spinal cord stroke, DVT/PE on eliquis, Renal artery stenosis s/p renal artery stenting, who is a resident at [facility] was brought in with fever and possible UTI. Now status post cholecystectomy tube. Had a bowel movement last night. 1. Acute cholecystitis status post cholecystostomy tube # day * s/p cholecystostomy tube, continuing to drain * White count hovering around 15-16 over the past few days * Culture results from biliary drainage shows no growth. Previous urine cultures grew Morganella and Providentia. Repeat urine cultures negative so far. * watching off antibiotics. Patient afebrile. * C. difficile negative * ID following 2. Acute hypoxic respiratory failure: Likely secondary to bilateral pleural effusions and atelectasis * BiPAP nocturnally and as needed during the day * We will keep oxygen above 92% * Last Chest x-ray done November 26 showed b/l pleural effusions and pulm congestion. * Bilateral pleural effusions were consistent with CHF. She was on a dobutamine drip for improving cardiac function but it was later stopped. Echocardiogram showed hyperdynamic EF of 80% with impaired LV relaxation and underfilled left ventricle and mildly hypokinetic right ventricle. * Patient was on IV heparin but had one episode of dark colored stool so Heparin has been placed on hold for now. She has been consistently guaiac positive. * No thoracentesis is done as effusions are too small to tap * Pulmonology following 3. Acute kidney injury/ATN from sepsis/anasarca, low albumin * Cr improving 1.8 this morning * IV fluids discontinued * Closely monitor BEP. * Continued on Neupogen target hemoglobin 10-11 * Continue sodium bicarbonate 1300 twice a day * No clear indications of diuretics at this time * No dialysis is indicated at this time * Nephrology on board 4. Cholelithiasis with hydropic gallbladder: * s/p cholecystostomy tube placement by IR 1DA with biliary drainage culture, follow up culture. * Bili culture showed no growth 5. Acute on chronic anemia : * Continues to have guaiac positive stools * Evaluated by GI, no plans of acute intervention at this time * Patient continued on Protonix and probiotic * Patient tolerating a heart healthy diet. * Continue to hold Eliquis and Plavix for anemia and guaiac positive stools 6. Altered mental status/lethargy * CT negative for any acute pathology. 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 c/w baclofen for spasticity & gabapentin 8. Hx of DVT/PE s/p IVC filter: * IV heparin was stopped due to melena and guaiac positive stools * We'll continue FOR now * Patient has an IVC filter placed in 2012 9. Hypothyroidism: * c/w levothyroxine 50mcg daily 10. HTN: Continue Procardia. DVT ppx: po eliquis on hold, ALPS for now, full code. There has been multiple discussions regarding code status, but patient always wanted to be full code. Problem List: 1. Hypoxia 2. Hypothyroidism 3. Acute respiratory failure with hypoxia and hypercarbia 4. Acute diastolic CHF (congestive heart failure) 5. Guaiac positive stools 6. CVA (cerebral vascular accident) Pain Ratin Pain Location: na Pain Goal: Pain 4 or less Pain Plan: current regimen Tomorrow's Labs & Rationales: cbc/bep Consulting Request: Consulting Specialty: Neurology Consulting Physician: Dr. Rodriguez Reason for Consult: LILLIE, metabolic acidosis YESENIA RODRIGUEZ MD 12/01/16 1533: Attending MD Review Statement Attending Statement Attending MD Statement: examined this patient, discuss w/resident/PA/FIREBRICK LAYER, agreed w/resident/PA/FIREBRICK LAYER, reviewed EMR data (avail) Attending Assessment/Plan: Patient appears well with no complaints. Still requiring nocturnal BiPAP. LILLIE improved. WIll continue current management and continue to follow up.
[2016-12-01 08:56] LABS: HEMATOCRIT 28.7 % (37-47); MEAN CORPUSCULAR HGB 27.1 PG (27.0-31.0); MEAN CORPUSCULAR HGB CONC 31.9 G/DL (33.0-37.0); MEAN CORPUSCULAR VOLUME 84.8 FL (81.0-99.0); MEAN PLATELET VOLUME 9.4 FL (7.4-10.4); PLATELET COUNT 280 /CUMM (130-400); RBC DISTRIBUTION WIDTH 20.9 % (11.5-14.5); RED BLOOD CELL CT 3.39 /CUMM (4.20-5.40); WHITE BLOOD CELL COUNT 16.2 /CUMM (4.8-10.8)
--- NOTE | 2016-12-01 11:32 | PN- Pulmonary ---
Subjective HPI/Critical Care Issues: The patient is awake and appears comfortable. She denies any pain or shortness of breath. There were no overnight events reported. She continues to tolerate nocturnal BiPAP without issue. Objective Current Medications: Current Medications Sig/Kobi Start time Last Medication Dose Route Stop Time Status Admin Acetaminophen 650 MG Q6P PRN 11/14 1615 AC 11/26 PO 0949 Acetaminophen 1,000 MG Q6P PRN 11/14 1615 AC 11/21 IV 0854 Allopurinol 50 MG DAILY 11/15 1000 AC 12/01 PO 0956 Baclofen 2.5 MG BID 11/14 2200 AC 12/01 PO 0956 Cholecalciferol 1,000 IU DAILY 11/15 1000 AC 12/01 PO 0957 Epoetin Aldair 10,000 UNITS Q168 11/26 1915 AC 11/26 SC 2028 Ferrous Sulfate 325 MG BID 11/14 2200 AC 12/01 PO 0957 Gabapentin 100 MG DAILY 11/14 1600 AC 12/01 PO 0957 Lactobacillus 1 CAP DAILY 11/15 1000 AC 12/01 Acidophilus PO 0957 Levothyroxine Sodium 0.075 MG DAILY AC 11/27 0700 AC 12/01 PO 0607 Magnesium Oxide 400 MG ONE ONE 12/01 1045 DC PO 12/01 1046 Melatonin 3 MG AT BEDTIME PRN 11/19 1545 AC PO Multivitamins 1 TAB DAILY 11/15 1000 AC 12/01 Therapeutic PO 0957 Omeprazole 40 MG DAILY AC 11/20 0954 AC 12/01 PO 0607 Potassium Chloride 40 MEQ ONCE ONE 12/01 1045 DC PO 12/01 1046 Sodium Bicarbonate 1,300 MG BID 11/27 1132 AC 12/01 PO 0957 Vital Signs & I&O Last 24 Hrs of Vitals and I&O: Vital Signs Date Time Temp Pulse Resp B/P Pulse O2 O2 Flow FiO2 Ox Delivery Rate 12/01 0836 92 Nasal 4.0L Cannula 12/01 0815 96.1 76 16 138/70 92 BIPAP 12/01 0036 84 93 12/01 0000 BIPAP 45% 11/30 2335 96.1 79 32 124/74 91 BIPAP 11/30 2224 84 92 11/30 1655 91 Nasal 4.0L Cannula 11/30 1600 93 Nasal 4.0L Cannula 11/30 1521 42 16 122/50 92 Nasal 4.0L Cannula Intake & Output 12/01 1600 / 0800 12/01 0000 Intake Total 200 460 Output Total 8 Balance 200 452 Intake, IV 10 Intake, Oral 200 450 Number 2 Bowel Movements Output, Other 8 Exam General Appearance: alert, awake, comfortable Head: atraumatic, normal appearance Neck: supple Respiratory: bilateral ronchi, decreased air entry at the bases Cardiovascular: S1 and S2 heard Abdomen: normal bowel sounds, soft, non-tender Extremities: minimal edema Skin: warm/dry Results Last 24 Hrs of Lab Results: Laboratory Tests 12/01/16 0740: Anion Gap 8, Estimated GFR 27 L, BUN/Creatinine Ratio 17.8, Magnesium 1.7, CBC w Diff MAN DIFF ORDERED, RBC 3.39 L, MCV 84.8, MCH 27.1, RDW 20.9 H, MPV 9.4, Segmented Neutrophils 93 H, Lymphocytes 5 L, Monocytes 2, Nucleated RBCs 32 H , Platelet Estimate ADEQUATE, Hypochromic-Microcytic 2+, Poikilocytosis 2+, Anisocytosis 2+, Target Cells 2+, PUBS MCHC 31.9 L Impression/Plan Impression/Plan Impression/Plan: 1. S/P cholecystostomy tube for acute cholecystitis. 2. Hypoxemic respiratory failure requiring Bipap use. 3. LILLIE - Cr improving. 4. Persistent leukocytosis. 5. 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 Recommendations: * Check a follow up CXR today. * Continue nocturnal BiPAP. * BiPAP as needed during the day to reduce work of breathing as necessary. * Keep oxygen greater than 92%. * Monitor off antibiotics as per ID. * Continue to monitor for progressive anemia. * Nutrition as tolerated. * DVT prophylaxis with Alps only, due to anemia.
[2016-12-01 16:37] VITALS: BP 136/71
--- NOTE | 2016-12-01 22:51 | RADIOLOGY REPORT ---
EXAMINATION: XR CHEST PORTABLE CLINICAL INFORMATION: Hypoxic respiratory failure. Shortness of breath. COMPARISON: Chest radiography 11/26/2016. TECHNIQUE: Portable AP view of the chest was obtained. FINDINGS: There is persistent bibasilar opacification. Blunting of the right greater than left costophrenic angles. Bronchovascular prominence noted. No pneumothorax. Mediastinal contours have not significantly changed. No acute osseous abnormalities. Persistent inferior subluxation of the left humeral head with respect to the glenoid. IMPRESSION: Persistent bibasilar opacification and right greater than left pleural effusions. Please correlate for symptoms of pneumonia or pulmonary edema. Overall findings have not significantly changed compared to exam 11/26/2016.
[2016-12-02 00:20] VITALS: BP 146/84
[2016-12-02 07:30] VITALS: BP 162/80
[2016-12-02 08:44] LABS: HEMATOCRIT 28.8 % (37-47); MEAN CORPUSCULAR HGB CONC 31.9 G/DL (33.0-37.0); MEAN CORPUSCULAR VOLUME 84.6 FL (81.0-99.0); MEAN PLATELET VOLUME 9.6 FL (7.4-10.4); PLATELET COUNT 272 /CUMM (130-400); RBC DISTRIBUTION WIDTH 20.3 % (11.5-14.5)
--- NOTE | 2016-12-02 10:11 | PN- Pulmonary ---
Subjective HPI/Critical Care Issues: pt seen and examined doing well creatinine improved awake and alert no n/v/d/c Objective Current Medications: Current Medications Sig/Kobi Start time Last Medication Dose Route Stop Time Status Admin Acetaminophen 650 MG Q6P PRN 11/14 1615 AC 11/26 PO 0949 Acetaminophen 1,000 MG Q6P PRN 11/14 1615 AC 11/21 IV 0854 Allopurinol 50 MG DAILY 11/15 1000 AC 12/02 PO 0919 Baclofen 2.5 MG BID 11/14 2200 AC 12/02 PO 0919 Cholecalciferol 1,000 IU DAILY 11/15 1000 AC 12/02 PO 0919 Epoetin Aldair 10,000 UNITS Q168 11/26 1915 AC 11/26 SC 2028 Ferrous Sulfate 325 MG BID 11/14 2200 AC 12/02 PO 0919 Gabapentin 100 MG DAILY 11/14 1600 AC 12/02 PO 0919 Lactobacillus 1 CAP DAILY 11/15 1000 AC 12/02 Acidophilus PO 0919 Levothyroxine Sodium 0.075 MG DAILY AC 11/27 0700 AC 12/02 PO 0919 Magnesium Oxide 400 MG ONE ONE 12/01 1045 DC 12/01 PO 12/01 1046 1246 Melatonin 3 MG AT BEDTIME PRN 11/19 1545 AC PO Multivitamins 1 TAB DAILY 11/15 1000 AC 12/02 Therapeutic PO 0919 Omeprazole 40 MG DAILY AC 11/20 0954 AC 12/02 PO 0919 Potassium Chloride 40 MEQ ONCE ONE 12/01 1045 DC 12/01 PO 12/01 1046 1246 Sodium Bicarbonate 1,300 MG BID 11/27 1132 AC 12/02 PO 0919 Vital Signs & I&O Last 24 Hrs of Vitals and I&O: Vital Signs Date Time Temp Pulse Resp B/P Pulse O2 O2 Flow FiO2 Ox Delivery Rate 12/02 0816 85 92 12/02 0800 92 Nasal 6.0L Cannula 12/02 0730 97.8 79 24 162/80 92 Nasal Cannula 12/02 0032 83 93 12/02 0020 96.6 88 28 146/84 93 BIPAP 50% 12/02 0000 BIPAP 50% 12/01 2200 87 89 12/01 1637 97.3 84 16 136/71 89 Nasal 4.0L Cannula 12/01 1610 87 Nasal 4.0L Cannula 12/01 1600 89 Nasal 5.0L Cannula Intake & Output 12/02 1600 12/02 0800 12/02 0000 Intake Total 440 Output Total 30 50 Balance -30 390 Intake, Oral 440 Number 0 Bowel Movements Output, Other 30 50 Output, Urine Exam Other Physical Findings: gen awake heent ncat cvs s1, s2 lungs rare rhonchi, dimnished bases abd soft, bs+ ext edematous neuro paresis Results Last 24 Hrs of Lab Results: Laboratory Tests 12/02/16 0710: Anion Gap 7, Estimated GFR 31 L, BUN/Creatinine Ratio 17.5, Magnesium 1.7, CBC w Diff Pending, WBC Pending, RBC Pending, Hgb Pending, Hct Pending, MCV Pending, MCH Pending, RDW Pending, Plt Count Pending, MPV Pending, PUBS MCHC Pending Impression/Plan Impression/Plan Impression/Plan: Impression 81 year old woman - s/p cholecystostomy tube for acute cholecystitis - hypoxemic respiratory failure requiring bipap use - metabolic acidosis - LILLIE - acute on chronic anemia with blood loss - 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 Plan - TRIAL OFF BIPAP TONIGHT - cholecystostomy per primary team - f/u cardiology input - monitor cbc, goal hgb >8 or if bleeding, on epogen - f/u nephrology recommendations - strict ins/outs - on diet, f/u nutrition recommendations - paresis secondary to spinal cva DVT prophylaxis at all times with ALPS, given anemia only mechanical prophylaxis at this time, has IVC filter Recommend goals of care discussions
[2016-12-02 10:46] LABS: WHITE BLOOD CELL COUNT 16.5 /CUMM (4.8-10.8)
--- NOTE | 2016-12-02 11:44 | PN- Housestaff ---
[facility] 1130: Subjective Follow-up For: Sepsis 2/2 acute cholecystitis LILLIE History of DVT Complaints: no complaints Tele-Events Since Last Visit: Sinus rhythm with first degree heart block, 70-80 bpm Subjective: Patient is on a BiPAP. She is alert and responsive to commands. Creatinine improved this morning to 1.6. Review of Systems Constitutional: Reports: malaise, weakness. EENTM: Reports: no symptoms. Cardiovascular: Reports: no symptoms. Respiratory: Reports: short of breath. Gastrointestinal: Reports: abdominal pain. Genitourinary: Reports: no symptoms. Musculoskeletal: Reports: no symptoms. Objective Last 24 Hrs of Vital Signs/I&O Vital Signs Date Time Temp Pulse Resp B/P Pulse O2 O2 Flow FiO2 Ox Delivery Rate 12/02 0816 85 92 12/02 0800 92 Nasal 6.0L Cannula 12/02 0730 97.8 79 24 162/80 92 Nasal Cannula 12/02 0032 83 93 12/02 0020 96.6 88 28 146/84 93 BIPAP 50% 12/02 0000 BIPAP 50% 12/01 2200 87 89 12/01 1637 97.3 84 16 136/71 89 Nasal 4.0L Cannula 12/01 1610 87 Nasal 4.0L Cannula 12/01 1600 89 Nasal 5.0L Cannula Intake & Output 12/02 1600 12/02 0800 12/02 0000 Intake Total 440 Output Total 30 50 Balance -30 390 Intake, Oral 440 Number 0 Bowel Movements Output, Other 30 50 Output, Urine Physical Exam General Appearance: Alert, Mild Distress Skin: cholecystostomy tube in the right upper quadrant HEENT: Atraumatic, PERRLA, EOMI, on BiPAP Neck: Supple, No JVD Lymphatic: Cervical nl Cardiovascular: Regular Rate, Normal S1, Normal S2, No Murmurs Lungs: decreased breath sounds bilaterally Abdomen: Normal Bowel Sounds, Soft, No Tenderness, cholecystostomy tube in the right upper quadrant Neurological: quadriplegic at baseline Extremities: trace pedal edema bilaterally Vascular: Normal Pulses, Pulses Symmetrical Assessment/Plan Assessment: 81 yo female with pmh of HTN, hypothyroidism, HLD, CKD, quadriplegia s/p spinal cord stroke, DVT/PE on eliquis, Renal artery stenosis s/p renal artery stenting, who is a resident at [facility] was brought in with fever and possible UTI. Now status post cholecystectomy tube. Had a bowel movement last night. 1. Acute cholecystitis status post cholecystostomy tube # day * s/p cholecystostomy tube, continuing to drain * White count hovering around 15-16 over the past few days * Culture results from biliary drainage shows no growth. Previous urine cultures grew Morganella and Providentia. Repeat urine cultures negative so far. * watching off antibiotics. Patient afebrile. * C. difficile negative * ID following 2. Acute hypoxic respiratory failure: Likely secondary to bilateral pleural effusions and atelectasis * BiPAP nocturnally and as needed during the day.TRIAL OFF BIPAP TONIGHT * We will keep oxygen above 92% * Most recent chest x-ray from 12/02/2015 shows persistent bibasilar opacification and right greater than left pleural effusions * Echocardiogram showed hyperdynamic EF of 80% with impaired LV relaxation and underfilled left ventricle and mildly hypokinetic right ventricle. * Patient was on IV heparin but had one episode of dark colored stool so Heparin has been placed on hold for now. She has been consistently guaiac positive. * No thoracentesis is done as effusions are too small to tap * Pulmonology following 3. Acute kidney injury/ATN from sepsis/anasarca, low albumin * Cr improving 1.6 this morning * IV fluids discontinued * Closely monitor BEP. * Continued on Neupogen target hemoglobin 10-11 * Continue sodium bicarbonate 1300 twice a day * No clear indications of diuretics at this time * No dialysis is indicated at this time * Nephrology on board 4. Cholelithiasis with hydropic gallbladder: * s/p cholecystostomy tube placement by IR 1DA with biliary drainage culture, follow up culture. * Bili culture showed no growth 5. Acute on chronic anemia : * Continues to have guaiac positive stools * Evaluated by GI, no plans of acute intervention at this time * Patient continued on Protonix and probiotic * Patient tolerating a heart healthy diet. * Continue to hold Eliquis and Plavix for anemia and guaiac positive stools 6. Altered mental status/lethargy * CT negative for any acute pathology. 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 c/w baclofen for spasticity & gabapentin 8. Hx of DVT/PE s/p IVC filter: * IV heparin was stopped due to melena and guaiac positive stools * We'll continue FOR now * Patient has an IVC filter placed in 2012 9. Hypothyroidism: * c/w levothyroxine 50mcg daily 10. HTN: Continue Procardia. DVT ppx: po eliquis on hold, ALPS for now, full code. Goals of care discussion with the family. There has been multiple discussions regarding code status, but patient always wanted to be full code. Problem List: 1. Acute respiratory failure with hypoxia and hypercarbia 2. Acute diastolic CHF (congestive heart failure) 3. Acute kidney injury 4. Guaiac positive stools Pain Ratin Pain Location: Right upper quadrant Pain Goal: Pain 4 or less Pain Plan: IV morphine, baclofen, gabapentin. Tomorrow's Labs & Rationales: Tomorrow's Labs & Rationales: CBC. Infection BeP... Acute kidney injury.. Consulting Request: Consulting Specialty: Neurology Consulting Physician: Dr. Rodriguez Reason for Consult: LILLIE, metabolic acidosis MARGO METZ,AMY 12/02/16 1506: Attending MD Review Statement Attending Statement Attending MD Statement: examined this patient, discuss w/resident/PA/BUTT MAKER, agreed w/resident/PA/BUTT MAKER, reviewed EMR data (avail), discussed with nursing, discussed with case mgmt, reviewed images, amended to note Attending Assessment/Plan: From a numbers standpoint patient appears to be getting better albeit, very slowly. She has a cholecystostomy tube now in for 2 weeks and will need to clarify the duration of that with ID and IR. She is down to 6 L of oxygen and begin a trial of BiPAP tonight. She is eating a quarter of her meals and with encouraging by mouth intake with ensure as well. Her hemoglobin has stayed stable and there is going to be no anticoagulation for DVT prophylaxis given the bleeding risk and anemia. Her LILLIE is resolving nicely with a BUN of 28 and a creatinine of 1.6. She is paraplegic and is a Kayli lift at baseline so when stable will need to go back to ECF. Family is considering reevaluating CODE STATUS but she remains a full code.
--- NOTE | 2016-12-02 14:47 | PN- Infect Dx ---
Subjective Subjective: Afebrile without complaints Objective Last 24 Hrs of Vital Signs/I&O Vital Signs Date Time Temp Pulse Resp B/P Pulse O2 O2 Flow FiO2 Ox Delivery Rate 12/02 0816 85 92 12/02 0800 92 Nasal 6.0L Cannula 12/02 0730 97.8 79 24 162/80 92 Nasal Cannula 12/02 0032 83 93 12/02 0020 96.6 88 28 146/84 93 BIPAP 50% 12/02 0000 BIPAP 50% 12/01 2200 87 89 12/01 1637 97.3 84 16 136/71 89 Nasal 4.0L Cannula 12/01 1610 87 Nasal 4.0L Cannula 12/01 1600 89 Nasal 5.0L Cannula Intake & Output 12/02 1600 12/02 0800 12/02 0000 Intake Total 420 440 Output Total 30 30 50 Balance 390 -30 390 Intake, Oral 420 440 Number 1 0 Bowel Movements Output, Other 30 30 50 Output, Urine Physical Exam Other Physical Findings: She appears comfortable in no acute distress Lungs are clear Heart regular rhythm with no murmur Abdomen is distended, nontender with positive bowel sounds; cholecystostomy tube in place with 50 mL output yesterday and 60 mL overnight Results Last 24 Hours of Lab Results: Laboratory Tests 12/02 709 Chemistry Sodium (137 - 145 mmol/L) 143 Potassium (3.5 - 5.1 mmol/L) 3.7 Chloride (98 - 107 mmol/L) 108 H Carbon Dioxide (22 - 30 mmol/L) 28 Anion Gap (5 - 16) 7 BUN (7 - 17 mg/dL) 28 H Creatinine (0.5 - 1.0 mg/dL) 1.6 H Estimated GFR (>60 ml/min) 31 L BUN/Creatinine Ratio (7 - 25 %) 17.5 Magnesium (1.6 - 2.3 mg/dL) 1.7 Hematology CBC w Diff MAN DIFF ORDERED WBC (4.8 - 10.8 /CUMM) 16.5 H RBC (4.20 - 5.40 /CUMM) 3.40 L Hgb (12.0 - 16.0 G/DL) 9.2 L Hct (37 - 47 %) 28.8 L MCV (81.0 - 99.0 FL) 84.6 MCH (27.0 - 31.0 PG) 27.0 RDW (11.5 - 14.5 %) 20.3 H Plt Count (130 - 400 /CUMM) 272 MPV (7.4 - 10.4 FL) 9.6 Segmented Neutrophils (42.2 - 75.2 %) 92 H Lymphocytes (20.5 - 51.1 %) 4 L Monocytes (1.7 - 9.3 %) 2 Eosinophils (0 - 5.0 %) 2 Nucleated RBCs (0.0 - 0.0 /100WBC) 26 H Polychromasia 1+ Hypochromic-Microcytic 3+ Poikilocytosis 2+ Anisocytosis 2+ Target Cells 2+ PUBS MCHC (33.0 - 37.0 G/DL) 31.9 L Last 24 Hours of Jun Results: No recent cultures Recent Imaging Studies: Chest x-ray December 01 persistent bibasilar opacification, with bilateral pleural effusions, right greater than left Assessment/Plan Impression: Overall status poor, though stable, with renal function further improved. She remains afebrile but white blood cell count remains elevated off antibiotics, with no obvious focus of infection now 2 weeks status post placement of cholecystostomy tube for presumed acute cholecystitis. Her prognosis is quite poor and reevaluation of her overall status and level of care would be appropriate. Suggestion: 1. Await decision regarding overall level of care 2. Continue to follow off antibiotics
--- NOTE | 2016-12-02 15:19 | Discharge Summary ---
Visit Information Visit Dates Admission Date: 11/14/16 Discharge Date: 12/16/16 Hospital Course Course Attending Physician: MARGO METZ,AMY Bowser Primary Care Physician: VIKKI METZ,ADIS Bowser Consulting Request: Consulting Specialty: Neurology Consulting Physician: Dr. Rodriguez Reason for Consult: LILLIE, metabolic acidosis Hospital Course: Patient is 81 year old female with pmh of HTN, hypothyroidism, HLD, CKD, quadriplegia s/p spinal cord stroke, DVT/PE on eliquis, Renal artery stenosis s/ p renal artery stenting, who is a resident at [facility] was brought in with fever and possible UTI. She was noted to have fever at [facility] prior to admission and bloodwork showed a significantly elevated WBC. She had been begun on Macrodantin 100 mg bid for presumed UTI. Patient was seen and treated for the following conditions. Arrhythmia On 12/06/16 patient had a 8 beat run of V. tach and prior to that on 12/05/16 patient had a small run of SVT as shown on the hospital monitor. Dr. Kirk, the charger on board for this patient evaluated the patient and recommended 25 mg metoprolol twice a day. On 12/09/16 patient had another 33 beat run of V. tach probably due to her underlying coronary artery disease, she is started on amiodarone on 400 mg twice a day per Dr. Kirk's recommendation. Later the patient was found to be bradycardic with a heart rate in 48-50. Her metoprolol dose was decreased from 25 twice a day to 12.5 twice a day. Patient will follow with Dr. Kirk as an outpatient. Sepsis secondary to acute cholecystitis: Initially source of infection was suspected as UTI. She had urinary incontinence /neurogenic bladder at baseline. CT abdomen/pelvis showed hydropic GB and distended appendix. General surgery was consulted, and HIDA scan was done which showed findings of acute cholecystitis. Patient was not a surgical candidate and so a percutaneous cholecystostomy tube was placed on 11/18 by IR. PO eliquis/ plavix were held prior to the procedure. Patient was started on IV Zosyn as per ID recommendations. Bili cultures have been negative. Urine cultures were positive for morganella morganii, providencia. IV Zosyn was stopped after 9 days. Cholecystostomy has decent amount of drainage. Patient remained afebrile, however continued to have persistent leukocytosis. Repeat Chest CT showed no evidence of acute hematoma/hemorrhage within the abdomen/ pelvis. Repeat urine cultures negative. C. difficile was negative. Patient remained stable and afebrile on the floor. At discharge patient is recommended to follow-up with Dr. Walls regarding the management of the cholecystostomy tube which typically was planned to be in for 6 weeks (till 12/31/15). Acute hypoxic hypercarbic respiratory failure: On 11/22/2016, patient developed acute hypoxic hypercarbic respiratory failure, requiring BiPAP and ICU transfer. The cause of respiratory failure was possibly due to bilateral pleural effusions /atelectasis and opiate use for her pain from cholecystitis. She received Narcan prior to transfer to the ICU and was placed on a BiPAP. She was planned for a thoracentesis by IR will decided not to do the procedure as the effusions were too small to tap. Patient was tapered off the BiPAP in the ICU and was placed on nasal cannula. Patient was transferred to the telemetry floor from ICU where she continued to be on the BiPAP for poor respiratory status. Echocardiogram showed hyperdynamic EF of 80% with impaired LV relaxation and underfilled left ventricle & mildly hypokinetic right ventricle. Repeat chest x -ray showed persistent bibasilar opacification and right greater than left pleural effusions. Pulmonary consult service was on board. When patient stabilized she was transferred to telemetry floor, she remains on BiPAP and high flow oxygen here. Acute kidney injury/metabolic acidosis: Possibly an ATN secondary to sepsis. Was treated with IV fluids and bicarbonate. Patient was started on Epogen weekly due to low reticulocyte index. She was followed by nephrology who felt there was no clear of diuresis at this time. There was no indication for dialysis. BEP was regular monitored and patient's creatinine improved subsequently. Her creatinine remains 1.3 1.4, which looks like her new baseline. Bilateral pleural effusion Patient was on Eliquis at home, which was held in the hospital considering the possibility of pleural tapping and patient was started on IV heparin, which was later stopped due to lower GI bleeding and episodes of epistaxis. No tap was done as the pleural fluid was insignificant in amount. Hypotension, in the setting of diuresis, with possible preload dependence with severe pulmonary hypertension: In the ICU as per the charger recommendation patient was started on dobutamine drip to support her blood pressure. She also received IV fluid boluses to maintain her blood pressures. Dobutamine drip was later turned off as patient was able to maintain her blood pressure. On telemetry floor, patient started to get hypertensive therefore her nifedipine was restarted her blood pressure is maintained between 140-150 systolic. Acute on chronic anemia, requiring 3 units of blood transfusion: Per rectal bleeding and epistaxis H/h was stable but she continued to have guaiac positive stools. Eliquis and Plavix were held for anemia and guaiac positive stools. Patient was continued on Protonix and probiotic. She was evaluated by GI and there was no plan for active intervention History of recurrent pulmonary embolism, DVTs, status post IVC filter placement Was taking Eliquis at home which was held prior to the cholecystostomy tube insertion procedure. She was started on IV Heparin awaiting pleural tap but had one episode of bright red blood per rectum so Heparin was discontinued. Hypothyroidism: Her Synthroid dose was increased from 50 MCG daily to 75mcg PO daily. Patient needs a repeat TSH, free T4 T3 in 2 weeks post discharge. Altered mental status/lethargy CT negative for any acute pathology. Patient much more awake, alert and tolerating HH diet. 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 c/w baclofen for spasticity & gabapentin #Diet: per oral, Heart healthy #Full code Goals of care discussion with the family. There has been multiple discussions regarding code status, but patient always wanted to be full code. 2. Acute hypoxic hypercarbic respiratory failure: Could be secondary to bilateral pleural effusions /atelectasis seen on CT scan. Patient is also been receiving opiates for her abdominal pain post the cholecystostomy tube placement. She has past histories of PE/DVT and was off the anti-coagulation for a few days. Eliquis was restarted today at a subtherapeutic dose of 2.5 mg due to renal failure. Chest x-ray done yesterday showed no infiltrate/clear up her lungs. Patient was initially on nasal cannula then upgraded to 70% nonrebreather. ABG done this morning showed respiratory acidosis 7.24/56/62. Besides patient has been lethargic and drowsy. Therefore Narcan was administered. BiPAP started. * Repeat ABG in 1 hour. * Therapeutic and Diagnostic Thoracentesis over the weekend 2. Acute kidney injury/metabolic acidosis: Likely from ATN secondary to sepsis with FeNa 3%. Patient was given fluids and bicarbonate. Nephrology following the patient. No more fluids at this point is patient is fluid overloaded. Closely monitor BP. Nephrology on board. 3. Cholelithiasis with hydropic gallbladder: CT abdomen/pelvis showed cholelithiasis with mild inflammation and HIDA scan comfirmed acute cholecystitis. s/p cholecystostomy tube placement by IR with biliary drainage culture on 11/18. Bili culture showed no growth. She received 1 dose of Eliquis and Plavix on 11/22/2016 and now they're being held for thoracentesis over the weekend. 4. 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 c/w baclofen for spasticity & gabapentin 5. Hx of DVT/PE s/p IVC filter: Resume Eliquis and Plavix from 11/20 per surgery 6. Hypothyroidism: c/w levothyroxine 50mcg daily 7. HTN: Continue nifedipine. 8. Acute on chronic anemia: Status post 2 units of blood transfusion. Evaluated by GI, no plans of acute intervention at this time.Patient continued on Protonix and probiotic Patient tolerating a liquid diet. Holding Eliquis and Plavix for thoracentesis. 9. Dilated appendix: about 10mm, low clinical suspicion for acute appendicitis per surgery. DVT ppx: resume po eliquis, full code. Complications: On 11/22/2016, patient developed acute hypoxic hypercarbic respiratory failure, requiring BiPAP and ICU transfer. The cause of respiratory failure was possibly due to bilateral pleural effusions/atelectasis and opiate use for her pain from cholecystitis. She received Narcan prior to transfer to the ICU and was placed on a BiPAP. Allergies: Coded Allergies: clonidine (HIVES 02/02/16) Disposition Summary Disposition Principal Diagnosis: Sepsis secondary to acute cholecystitis Additional Diagnosis: Acute hypoxic hypercarbic respiratory failure History of recurrent pulmonary embolism, DVTs, status post IVC filter placement Acute on chronic anemia, requiring 3 units of blood transfusion. Discharge Disposition: SNF Discharge Instructions General Discharge Information Code Status: Full Code Patient's Diet: Regular Diet Patient's Activity: As tolerated Follow-Up Instructions/Appts: 1.Please f/u with your PCP within 1 week of discharge. 2. Please follow up with Dr Walls regarding the cholecystotomy tube within 1 week of discharge. 3.Please f/u with Dr. Navas within 2 weeks of discharge. 4. Please f/u with sales analytics manager within 2 weeks of discharge. 5. Please follow up with charger Dr. Kirk within 2 weeks of discharge. Medications at Discharge Discharge Medications: Stop taking the following medications: Clopidogrel Bisulfate (Clopidogrel) 75 MG TABLET ORAL DAILY Levothyroxine Sodium (Synthroid) 50 MCG TABLET ORAL DAILY BEFORE BREAKFAST Apixaban (Eliquis) 5 MG TABLET ORAL TWICE DAILY Nitrofurantoin Monohyd/M-Cryst (Nitrofurantoin [place]-Mcr 100 MG) 100 MG CAPSULE ORAL TWICE DAILY Qty = 14 Continue taking these medications: Allopurinol (Allopurinol) 100 MG TABLET 0.5 Tablet ORAL DAILY Nifedipine (Nifedipine ER) 30 MG TAB.ER.24 1 Tablet ORAL DAILY Baclofen (Baclofen) 10 MG TABLET 0.25 Tablet ORAL TWICE DAILY Comments: Last Taken: 12/16/16 Time: 0800 Multivitamin (Multiple Vitamins) 1 EACH TABLET 1 Tablet ORAL DAILY Comments: Last Taken: 12/16/16 Time: 0800 Cholecalciferol (Vitamin D3) 1,000 UNIT TABLET 1 Tablet ORAL DAILY Darbepoetin Aldair in Polysorbat (Aranesp) 25 MCG/0.42 ML SYRINGE 1 Inj Inject into fatty tissue Once a Week Gabapentin (Gabapentin) 300 MG CAPSULE 1 Capsule ORAL THREE TIMES DAILY Qty = 90 Comments: Last Taken: 12/16/16 Time: 0800 Albuterol Sulfate (Albuterol Sulfate) 2.5 MG/3 ML (0.083 %) VIAL.NEB 1 Vial Inhale Solution 4 TIMES A DAY Instructions: FOR 3 DAYS START 11/14 Ferrous Sulfate (Ferrous Sulfate) 325 MG (65 MG IRON) TABLET 1 Tablet ORAL TWICE DAILY Comments: Last Taken: 12/16/16 Time: 0800 Lactobacillus Acidophilus (Acidophilus) 1 EACH CAPSULE 1 Capsule ORAL DAILY Comments: Last Taken: 12/16/16 Time: 0800 Start taking the following new medications: Sodium Bicarbonate (Sodium Bicarbonate) 325 MG TABLET 1,300 Milligram ORAL TWICE DAILY Days = 30 No Refills Omeprazole (Omeprazole) 20 MG CAPSULE.DR 40 Milligram ORAL DAILY BEFORE BREAKFAST Days = 30 No Refills Levothyroxine Sodium (Synthroid) 75 MCG TABLET 0.075 Milligram ORAL DAILY BEFORE BREAKFAST Qty = 60 No Refills Metoprolol Tartrate (Metoprolol Tartrate) 25 MG TABLET 12.5 Milligram ORAL TWICE DAILY Qty = 30 No Refills Amiodarone HCl (Amiodarone HCl) 200 MG TABLET 2 Tablet ORAL TWICE DAILY Qty = 30 No Refills Copies To: ROSS METZ,AMY ARAGON MD,AMY Bowser; JUAN MIGUEL METZ,BK Tabor; SHANTANU METZ, REMI Ricci; MICHELLE METZ PhD,HEATHER Rubio; MOLLY METZ,ANGEL
[2016-12-02 15:30] VITALS: BP 138/78
[2016-12-02] MEDS ORDERED: OMEPRAZOLE20 M2 PO (17:07)
[2016-12-02] MEDS ORDERED: SODIUM BICARBO325 M1 PO (17:07)
--- NOTE | 2016-12-02 17:11 | Patient Discharge Instructions ---
Discharge Instructions General Discharge Information You were seen/treated for: 1.Acute cholecystitis status post cholecystostomy tube 2. Acute hypoxic respiratory failure 3. Acute kidney injury/ATN from sepsis/anasarca, low albumin 4. Acute on chronic anemia Special Instructions: 1.Please f/u with your PCP within 1 week of discharge. 2. Please follow up with Dr Walls regarding the cholecystotomy tube within 1 week of discharge. 3.Please f/u with Dr. Navas within 2 weeks of discharge. 4. Please f/u with gear technician within 2 weeks of discharge. 5. Please follow up with silverware supervisor Dr. Kirk within 2 weeks of discharge. Diet Recommended Diet: Regular Activity Full Activity/No Limits: No (as tolerated) Acute Coronary Syndrome Inclusion Criteria At DC or during hospital stay patient has or had the following: ACS DIAGNOSIS No Discharge Core Measures Meds if any: Prescribed or Continued at Discharge Meds if any: NOT Prescribed or Continued at Discharge Congestive Heart Failure Inclusion Criteria At DC or during hospital stay patient has or had the following: CHF DIAGNOSIS No Discharge Core Measures Meds if any: Prescribed or Continued at Discharge Meds if any: NOT Prescribed or Continued at Discharge Cerebrovascular accident Inclusion Criteria At DC or during hospital stay patient has or had the following: CVA/TIA Diagnosis No Discharge Core Measures Meds if any: Prescribed or Continued at Discharge Meds if any: NOT Prescribed or Continued at Discharge Venous thromboembolism Inclusion Criteria VTE Diagnosis No VTE Type NONE VTE Confirmed by (Test) NONE Discharge Core Measures - Per Current guidelines, there needs to be overlap - treatment for the first 5 days of Warfarin therapy. - If discharged on Warfarin prior to 5 days of - overlap therapy, the patient will need to be - assessed for post discharge needs including - *Post discharge parental anticoagulation - *Warfarin and/or parental anticoagulation education - *Follow up date to check INR post discharge At least 5 days overlap therapy as Inpatient No Meds if any: Prescribed or Continued at Discharge Note: Overlap Therapy is Warfarin and Anticoagulant Meds if any: NOT Prescribed or Continued at Discharge
[2016-12-02 23:46] VITALS: BP 144/76
--- NOTE | 2016-12-03 05:47 | PN- Pulmonary ---
Subjective HPI/Critical Care Issues: pt seen and examined. on bipap. sleeping daughter sleeping at bedside as well did not awaken appears comfortable Objective Current Medications: Current Medications Sig/Kobi Start time Last Medication Dose Route Stop Time Status Admin Acetaminophen 650 MG Q6P PRN 11/14 1615 AC 11/26 PO 0949 Acetaminophen 1,000 MG Q6P PRN 11/14 1615 AC 11/21 IV 0854 Allopurinol 50 MG DAILY 11/15 1000 AC 12/02 PO 0919 Baclofen 2.5 MG BID 11/14 2200 AC 12/02 PO 2128 Cholecalciferol 1,000 IU DAILY 11/15 1000 AC 12/02 PO 0919 Epoetin Aldair 10,000 UNITS Q168 11/26 1915 AC 11/26 SC 2028 Ferrous Sulfate 325 MG BID 11/14 2200 AC 12/02 PO 2128 Gabapentin 100 MG DAILY 11/14 1600 AC 12/02 PO 0919 Lactobacillus 1 CAP DAILY 11/15 1000 AC 12/02 Acidophilus PO 0919 Levothyroxine Sodium 0.075 MG DAILY AC 11/27 0700 AC 12/02 PO 0919 Melatonin 3 MG AT BEDTIME PRN 11/19 1545 AC PO Multivitamins 1 TAB DAILY 11/15 1000 AC 12/02 Therapeutic PO 0919 Omeprazole 40 MG DAILY AC 11/20 0954 AC 12/02 PO 0919 Sodium Bicarbonate 1,300 MG BID 11/27 1132 AC 12/02 PO 2127 Vital Signs & I&O Last 24 Hrs of Vitals and I&O: Vital Signs Date Time Temp Pulse Resp B/P Pulse O2 O2 Flow FiO2 Ox Delivery Rate 12/03 0539 84 92 12/03 0029 92 92 12/03 0000 97 Nasal 6.0L Cannula 12/02 2346 96.8 92 18 144/76 91 BIPAP 12/02 1845 88 Nasal 5.5L Cannula 12/02 1530 96.7 85 18 138/78 91 Nasal 6.0L Cannula 12/02 0816 85 92 12/02 0800 92 Nasal 6.0L Cannula 12/02 0730 97.8 79 24 162/80 92 Nasal Cannula Intake & Output 12/03 0800 12/03 0000 12/02 1600 Intake Total 655 420 Output Total 20 30 Balance 635 390 Intake, IV 10 Intake, Oral 645 420 Number 1 Bowel Movements Output, Other 20 30 Exam Other Physical Findings: gen comfortable heent ncat cvs s1, s2 lungs rare rhonchi anterior chest abd soft, bs+ ext mild edema neuro paresis chronic Results Last 24 Hrs of Lab Results: Laboratory Tests 12/02/16 0710: Anion Gap 7, Estimated GFR 31 L, BUN/Creatinine Ratio 17.5, Magnesium 1.7, CBC w Diff MAN DIFF ORDERED, RBC 3.40 L, MCV 84.6, MCH 27.0, RDW 20.3 H, MPV 9.6, Segmented Neutrophils 92 H, Lymphocytes 4 L, Monocytes 2, Eosinophils 2, Nucleated RBCs 26 H, Polychromasia 1+, Hypochromic-Microcytic 3+, Poikilocytosis 2+, Anisocytosis 2+, Target Cells 2+, PUBS MCHC 31.9 L Impression/Plan Impression/Plan Impression/Plan: Impression 81 year old woman - s/p cholecystostomy tube for acute cholecystitis - hypoxemic respiratory failure requiring bipap use - metabolic acidosis - LILLIE - acute on chronic anemia with blood loss - 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
[2016-12-03 07:48] VITALS: BP 158/84
--- NOTE | 2016-12-03 08:10 | PN- Housestaff ---
FRANKY METZ,GIORGI 12/03/16 0809: Subjective Follow-up For: Acute cholecystitis status post cholecystostomy tube Acute hypoxic hypercarbic respiratory failure Tele-Events Since Last Visit: Remained in normal sinus rhythm Subjective: The patient was in bed not in any acute distress. She is tolerating the nasal cannula and BiPAP off therapy well. She remained on BiPAP at the right Review of Systems Constitutional: Reports: see HPI. Objective Last 24 Hrs of Vital Signs/I&O Vital Signs Date Time Temp Pulse Resp B/P Pulse O2 O2 Flow FiO2 Ox Delivery Rate 12/03 0858 92 Nasal 6.0L Cannula 12/03 0813 76 92 12/03 0748 96.4 79 18 158/84 93 BIPAP 12/03 0539 84 92 12/03 0029 92 92 12/03 0000 97 Nasal 6.0L Cannula 12/02 2346 96.8 92 18 144/76 91 BIPAP 12/02 1845 88 Nasal 5.5L Cannula 12/02 1530 96.7 85 18 138/78 91 Nasal 6.0L Cannula Intake & Output 12/03 1600 12/03 0800 12/03 0000 Intake Total 50 655 Output Total 40 20 Balance 10 635 Intake, IV 10 Intake, Oral 50 645 Number 2 Bowel Movements Output, Other 40 20 Physical Exam General Appearance: Alert, Oriented X3, Cooperative Skin: No Rashes, No Breakdown HEENT: Atraumatic, PERRLA Neck: Supple, No JVD, No thryomegaly Lymphatic: Axillary nl, Cervical nl Cardiovascular: Normal S1, Normal S2 Lungs: b/l faint basal crackles and decreased airway entry Abdomen: Soft, No Tenderness Neurological: Normal Speech, Strength at 5/5 X4 Ext Extremities: No Cyanosis, No Edema Assessment/Plan Assessment: 81 yo female with pmh of HTN, hypothyroidism, HLD, CKD, quadriplegia s/p spinal cord stroke, DVT/PE on eliquis, Renal artery stenosis s/p renal artery stenting, who is a resident at [facility] was brought in with fever and possible UTI. Now status post cholecystectomy tube. Had a bowel movement last night. 1. Acute cholecystitis status post cholecystostomy tube 2. Acute hypoxic hypercarbic respiratory failure- im improving 3. LILLIE secondary to ATN from sepsis 4. Anasarca 5. Anemia of chronic inflammation secondary to kidney disease 6. History of recurrent PEs, DVTs, status post IVC filter 7. History of hypothyroidism 8. 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 History of hypertension 10. Overall poor prognosis and poor functional status Plan -The patient can be taken off telemetry -Follow-up pulmonology recommendations and give the trial off BiPAP. As per now the patient is tolerating the nasal cannula and saturating well -Patient's metabolic acidosis is resolved, recommending sodium bicarbonate due to decreased to 1300 mg daily -We will check CBC, lipid: Hemoglobin greater than 8, continue with Epogen -Continue with other medications, for hypertension hypothyroidism -lillie improving -cholecytostomy tube continued to drain, no growth so far Off antibiotics at this point, the cholecystostomy tube to be placed in 1. Acute cholecystitis status post cholecystostomy tube # day14 * s/p cholecystostomy tube, continuing to drain * White count hovering around 15-16 over the past few days * Culture results from biliary drainage shows no growth. Previous urine cultures grew Morganella and Providentia. Repeat urine cultures negative so far. * watching off antibiotics. Patient afebrile. * C. difficile negative * ID following 2. Acute hypoxic respiratory failure: Likely secondary to bilateral pleural effusions and atelectasis * BiPAP nocturnally and as needed during the day.TRIAL OFF BIPAP TONIGHT * We will keep oxygen above 92% * Most recent chest x-ray from 12/02/2015 shows persistent bibasilar opacification and right greater than left pleural effusions * Echocardiogram showed hyperdynamic EF of 80% with impaired LV relaxation and underfilled left ventricle and mildly hypokinetic right ventricle. * Patient was on IV heparin but had one episode of dark colored stool so Heparin has been placed on hold for now. She has been consistently guaiac positive. * No thoracentesis is done as effusions are too small to tap * Pulmonology following 3. Acute kidney injury/ATN from sepsis/anasarca, low albumin * Cr improving 1.6 this morning * IV fluids discontinued * Closely monitor BEP. * Continued on Neupogen target hemoglobin 10-11 * Continue sodium bicarbonate 1300 twice a day * No clear indications of diuretics at this time * No dialysis is indicated at this time * Nephrology on board 4. Cholelithiasis with hydropic gallbladder: * s/p cholecystostomy tube placement by IR 1DA with biliary drainage culture, follow up culture. * Bili culture showed no growth 5. Acute on chronic anemia : * Continues to have guaiac positive stools * Evaluated by GI, no plans of acute intervention at this time * Patient continued on Protonix and probiotic * Patient tolerating a heart healthy diet. * Continue to hold Eliquis and Plavix for anemia and guaiac positive stools 6. Altered mental status/lethargy * CT negative for any acute pathology. 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 c/w baclofen for spasticity & gabapentin 8. Hx of DVT/PE s/p IVC filter: * IV heparin was stopped due to melena and guaiac positive stools * We'll continue FOR now * Patient has an IVC filter placed in 2012 9. Hypothyroidism: * c/w levothyroxine 50mcg daily 10. HTN: Continue Procardia. DVT ppx: po eliquis on hold, ALPS for now, full code. Goals of care discussion with the family. There has been multiple discussions regarding code status, but patient always wanted to be full code. Problem List: 1. Acute respiratory failure with hypoxia and hypercarbia 2. Acute diastolic CHF (congestive heart failure) 3. Hypothyroidism Pain Ratin Pain Location: back pain Pain Goal: Pain 4 or less Pain Plan: po tylenol as needed Tomorrow's Labs & Rationales: cbc and bep Consulting Request: Consulting Specialty: Neurology Consulting Physician: Dr. Rodriguez Reason for Consult: LILLIE, metabolic acidosis MARGO METZ,AMY 12/03/16 1318: Attending MD Review Statement Attending Statement Attending MD Statement: examined this patient, discuss w/resident/PA/MOLD INSPECTOR, agreed w/resident/PA/MOLD INSPECTOR, reviewed EMR data (avail), discussed with nursing, discussed with case mgmt, reviewed images Attending Assessment/Plan: Patient has a nasal cannula right now but she remained on BiPAP through the night. Pulmonary is recommending to try her off BiPAP tonight. Her hypoxemic respiratory failure is resolving slowly. She has a cholecystostomy tube for treatment of cholecystitis and had Lillie which is resolving slowly. She is awake and alert and eating a little bit but drinking a lot of ensure. At this point the family is still considering goals of care but they have not de-escalated the status in any way. The plan is STR and outpatient follow-up when stable.
[2016-12-03 11:53] LABS: HEMATOCRIT 28.4 % (37-47); MEAN CORPUSCULAR HGB 26.7 PG (27.0-31.0); MEAN CORPUSCULAR HGB CONC 31.5 G/DL (33.0-37.0); MEAN CORPUSCULAR VOLUME 84.7 FL (81.0-99.0); MEAN PLATELET VOLUME 9.5 FL (7.4-10.4); PLATELET COUNT 285 /CUMM (130-400); RBC DISTRIBUTION WIDTH 20.9 % (11.5-14.5); RED BLOOD CELL CT 3.36 /CUMM (4.20-5.40)
[2016-12-03 12:20] LABS: WHITE BLOOD CELL COUNT 15.8 /CUMM (4.8-10.8)
[2016-12-03 16:05] VITALS: BP 162/70
--- NOTE | 2016-12-03 17:27 | RADIOLOGY REPORT ---
EXAMINATION: XR PORTABLE CHEST CLINICAL INFORMATION: Hypoxia. COMPARISON: Chest 12/01/2016. TECHNIQUE: Portable AP view of the chest was obtained. FINDINGS: Both lungs are hypoexpanded with bibasilar haziness greater on the right side from effusions and underlying atelectasis/infiltrate. There is cardiomegaly with increased pulmonary vascularity and mild pulmonary vascular congestion. No gross bony abnormality seen. IMPRESSION: Bilateral pleural effusions with bibasilar atelectasis, less likely infiltrate. Effusion is slightly greater on the right. Cardiomegaly with pulmonary vascular congestion suspected.
--- NOTE | 2016-12-03 19:30 | ULTRASOUND REPORT ---
EXAMINATION: US TRIPLEX LOWER EXTREMITY, BILATERAL CLINICAL INFORMATION: Sudden shortness of breath, hypoxia. COMPARISON: Bilateral lower leg venous study 11/22/2016. TECHNIQUE: Color-flow triplex imaging with spectral analysis and compression Doppler were performed on the bilateral lower extremities. FINDINGS: Respiratory variation, normal compression and augmented flow are noted throughout the bilateral lower extremities. The visualized common femoral vein, superficial femoral vein, profunda femoral vein, popliteal vein and midcalf peroneal and posterior tibial venous segments show no evidence of deep venous thrombosis. Bilateral popliteal fossa was difficult to visualize. There is bilateral lower leg edema. IMPRESSION: No sonographic evidence of deep venous thrombosis in both lower extremities. No change from 11/22/2016.
--- NOTE | 2016-12-03 20:40 | Event Note ---
Event Note Event Note: Latre documetation for the patient's The patient was found to be destauratiing to 87% . She was transiotioned from NC to high flow oxygen @ 80 Percent.The differential included worseing fluid overload and vascular congestion,PE(was previously on Xarelto and now only on ALPS alone) I ordered CXR which showed worseing vascular cingestion and we ended giving IV lasix 20 mg. We also ordered B/l lowe extremity US to rule out DVT I also had a long conversation with patients daughter regarding the goals of care. She was again made aware of the patients poor prgnosis . She wants to discuss with her elder sister before making the final decision. The above plan was discussed with Dr Navas.
[2016-12-04] VITALS (7 sets, daily range): BP systolic 140–186; BP diastolic 72–92
--- NOTE | 2016-12-04 07:52 | PN- Housestaff ---
PATRICA LOPEZ 12/04/16 0751: Subjective Follow-up For: 1. Acute cholecystitis status post cholecystostomy tube 2. Acute hypoxic hypercarbic respiratory failure-im improving 3. LILLIE secondary to ATN from sepsis 4. Anasarca 5. Anemia of chronic inflammation secondary to kidney disease 6. History of recurrent PEs, DVTs, status post IVC filter 7. History of hypothyroidism 8. 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 Yesterday, on NC her she desaturated to 85% and she was given 1 dose of IV lasix ( no significant increase in her output noted). Patient also required BIPAP at night.She is on high flow oxygen right now, BP stable, persistent leukocytosis. This morning she looked comfortable, her daughter was feeding her poridge. She had no new complains. Review of Systems Constitutional: Reports: see HPI. Objective Last 24 Hrs of Vital Signs/I&O Vital Signs Date Time Temp Pulse Resp B/P Pulse O2 O2 Flow FiO2 Ox Delivery Rate 12/04 0840 94 Nasal 80% Cannula 12/04 0830 97.7 73 20 152/80 94 BIPAP 65% 12/04 0828 72 95 12/04 0800 Room Air 12/04 0549 79 95 12/04 0233 76 95 12/04 0013 97.2 80 20 140/80 94 BIPAP 12/04 0000 BIPAP 35% 12/03 2328 84 92 12/03 1643 92 Nasal 80% Cannula 12/03 1605 96.5 83 20 162/70 90 12/03 1600 92 Nasal 80% Cannula Intake & Output 12/04 1600 12/04 0800 12/04 0000 Intake Total 250 850 Output Total 50 20 Balance 200 830 Intake, IV 0 0 Intake, Oral 250 850 Number 0 Bowel Movements Output, Other 50 20 Physical Exam General Appearance: Alert, Oriented X3 Skin: No Rashes HEENT: Atraumatic Neck: Supple Lymphatic: Cervical nl Cardiovascular: Normal S1, Normal S2 Lungs: dec breath sounds, patient unable to move unable to auscultate from behind Abdomen: Soft, No Tenderness Neurological: awake, alert Extremities: No Edema Current Medications: Current Medications Sig/Kobi Start time Last Medication Dose Route Stop Time Status Admin Acetaminophen 650 MG Q6P PRN 11/14 1615 AC 11/26 PO 0949 Acetaminophen 1,000 MG Q6P PRN 11/14 1615 AC 11/21 IV 0854 Allopurinol 50 MG DAILY 11/15 1000 AC 12/04 PO 1011 Baclofen 2.5 MG BID 11/14 2200 AC 12/04 PO 1012 Cholecalciferol 1,000 IU DAILY 11/15 1000 AC 12/04 PO 1011 Epoetin Aldair 10,000 UNIT Q168 12/03 1100 AC 12/03 SC 1348 Ferrous Sulfate 325 MG BID 11/14 2200 AC 12/04 PO 1011 Furosemide 20 MG ONCE ONE 12/03 1815 DC 12/03 IV 12/03 1816 1819 Furosemide 40 MG .STK-MED ONE 12/03 1814 DC IV 12/03 1815 Gabapentin 100 MG DAILY 11/14 1600 AC 12/04 PO 1011 Lactobacillus 1 CAP DAILY 11/15 1000 AC 12/04 Acidophilus PO 1011 Levothyroxine Sodium 0.075 MG DAILY AC 11/27 0700 AC 12/04 PO 0651 Magnesium Oxide 400 MG ONE ONE 12/03 1700 DC 12/03 PO 12/03 1701 1819 Melatonin 3 MG AT BEDTIME PRN 11/19 1545 AC PO Multivitamins 1 TAB DAILY 11/15 1000 AC 12/04 Therapeutic PO 1011 Omeprazole 40 MG DAILY AC 11/20 0954 AC 12/04 PO 0651 Potassium Chloride 40 MEQ ONCE ONE 12/03 1645 DC 12/03 PO 12/03 1646 1819 Senna/Docusate Sodium 2 TAB DAILY 12/04 1020 AC PO Sodium Bicarbonate 1,300 MG DAILY 12/03 1005 AC 12/04 PO 1011 Last 24 Hrs of Lab/Jun Results Last 24 Hrs of Labs/Mics: Laboratory Tests 12/04/16 0715: Anion Gap 7, Estimated GFR 36 L, BUN/Creatinine Ratio 17.1, Magnesium 1.6, CBC w Diff MAN DIFF ORDERED, RBC 3.56 L, MCV 83.9, MCH 26.8 L, RDW 20.1 H, MPV 9.6, Segmented Neutrophils 90 H, Lymphocytes 6 L, Monocytes 4, Nucleated RBCs 28 H, Platelet Estimate VERIFIED BY SMEAR, Polychromasia 1+, Poikilocytosis 2+, Anisocytosis 2+, Target Cells 2+, PUBS MCHC 32.0 L Assessment/Plan Assessment: Patient is 81 yo female with pmh of HTN, hypothyroidism, HLD, CKD, quadriplegia s/p spinal cord stroke, DVT/PE on eliquis, Renal artery stenosis s/p renal artery stenting, who is a resident at [facility] was brought in with fever and possible UTI. Now status post cholecystectomy tube. Most recent chest x-ray from 12/02/2015 shows persistent bibasilar opacification and right greater than left pleural effusions Echocardiogram showed hyperdynamic EF of 80% with impaired LV relaxation and underfilled left ventricle and mildly hypokinetic right ventricle. Patient is being seen and treated for the following problems 1. Acute cholecystitis status post cholecystostomy tube 2. Acute hypoxic hypercarbic respiratory failure 3. LILLIE secondary to ATN from sepsis 4. Anasarca 5. Anemia of chronic inflammation secondary to kidney disease 6. History of recurrent PEs, DVTs, status post IVC filter 7. History of hypothyroidism 8. 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 History of hypertension 10. Overall poor prognosis and poor functional status Plan Acute hypoxic respiratory failure Patient desaturated to 87 yesterday on nasal cannula, was back on BiPAP for overnight. Her symptoms improved after 1 dose of Lasix however she continues to have low urinary output. Pulmonology consult service on board Patient might benefit from additional Lasix It is unlikely that the patient has pulmonary embolism as she has an IVC filter We will continue to ensure aggressive intake output monitor to see if the patient is in negative fluid balance Patient was on IV heparin but had one episode of dark colored stool so Heparin has been placed on hold for now. She has been consistently guaiac positive. No thoracentesis is done as effusions are too small to tap Acute cholecystitis status post cholecystostomy tube daily [address], no new complications. It continues to drain. Patient will be off antibiotics. Infectious disease consult service on board 3. Acute kidney injury/ATN from sepsis/anasarca, low albumin Her creatinine is improving 1.4 on 12/07/16, her IV fluids were discontinued she is continued on Neupogen for a target hemoglobin of 10-11. We'll continue sodium bicarbonate 1300 mg twice a day. Nephrology consult service on board 4. Acute on chronic anemia : Patient continues to have guaiac positive stools, she was evaluated by GI no plans of further intervention at this point. Patient is maintained on proton exam probiotics. Patient is tolerating heart healthy diet. Her L request and Plavix are held due to guaiac positive stools 5.Qaudriplegia secondary to spinal cord stroke: Agent is at her baseline we'll continue her home medications 8. Hx of DVT/PE s/p IVC filter: IV heparin was stopped due to melena and guaiac positive stools. We'll continue to monitor for now. Patient has an IVC filter placed in 2012 9. Hypothyroidism: c/w levothyroxine 50mcg daily 10. HTN: Continue Procardia. DVT ppx: po eliquis on hold, ALPS for now, full code. Goals of care discussion with the family. There has been multiple discussions regarding code status, but patient always wanted to be full code. Problem List: 1. Hypoxia Pain Ratin Pain Location: n/a Pain Goal: Pain 4 or less Pain Plan: tylenol prn for pain Tomorrow's Labs & Rationales: cbc bep Consulting Request: Consulting Specialty: Neurology Consulting Physician: Dr. Rodriguez Reason for Consult: LILLIE, metabolic acidosis MARGO METZ,AMY 12/04/16 1113: Attending MD Review Statement Attending Statement Attending MD Statement: examined this patient, discuss w/resident/PA/PRESSURE TESTER OPERATOR, agreed w/resident/PA/PRESSURE TESTER OPERATOR, reviewed EMR data (avail), discussed with nursing, discussed with case mgmt, reviewed images Attending Assessment/Plan: Events over the last 12 hours noted. Patient had episode of desaturation and was empirically treated with IV Lasix for acute pulmonary edema. She has an IVC filter and cannot get any anticoagulants due to high risk of bleeding. She is back on the BiPAP and stayed on the BiPAP overnight. We can't titrate her down because of her desaturation. However white count is coming down, hemoglobin is stable , her LILLIE is slowly resolving but her respiratory status continues to be very very fragile. Despite multiple conversations with the patient's daughters they are reluctant and will not change the CODE STATUS and feel like she is getting better albeit very slowly. Will talk to Dr. Navas and follow-up. Dr. Rodriguez Reason for Consult: LILLIE, metabolic acidosis MARGO METZ,AMY 12/04/16 1113: Attending MD Review Statement Attending Statement Attending MD Statement: examined this patient, discuss w/resident/PA/PRESSURE TESTER OPERATOR, agreed w/resident/PA/PRESSURE TESTER OPERATOR, reviewed EMR data (avail), discussed with nursing, discussed with case mgmt, reviewed images Attending Assessment/Plan: Events over the last 12 hours noted. Patient had episode of desaturation and was empirically treated with IV Lasix for acute pulmonary edema. She has an IVC filter and cannot get any anticoagulants due to high risk of bleeding. She is back on the BiPAP and stayed on the BiPAP overnight. We can't titrate her down because of her desaturation. However white count is coming down, hemoglobin is stable , her LILLIE is slowly resolving but her respiratory status continues to be very very fragile. Despite multiple conversations with the patient's daughters they are reluctant and will not change the CODE STATUS and feel like she is getting better albeit very slowly. Will talk to Dr. Navas and follow-up.
[2016-12-04 08:32] LABS: HEMATOCRIT 29.9 % (37-47); MEAN CORPUSCULAR HGB 26.8 PG (27.0-31.0); MEAN CORPUSCULAR VOLUME 83.9 FL (81.0-99.0); MEAN PLATELET VOLUME 9.6 FL (7.4-10.4); PLATELET COUNT 277 /CUMM (130-400); RBC DISTRIBUTION WIDTH 20.1 % (11.5-14.5); RED BLOOD CELL CT 3.56 /CUMM (4.20-5.40)
[2016-12-04 09:09] LABS: WHITE BLOOD CELL COUNT 11.9 /CUMM (4.8-10.8)
--- NOTE | 2016-12-04 13:43 | PN- Pulmonary ---
Subjective HPI/Critical Care Issues: pt seen and examined on high flow o2 used bipap overnight had evidence of congestion/fluid overload and responded to lasix ROS limited secondary to pt status Objective Current Medications: Current Medications Sig/Kobi Start time Last Medication Dose Route Stop Time Status Admin Acetaminophen 650 MG Q6P PRN 11/14 1615 AC 11/26 PO 0949 Acetaminophen 1,000 MG Q6P PRN 11/14 1615 AC 11/21 IV 0854 Allopurinol 50 MG DAILY 11/15 1000 AC 12/04 PO 1011 Baclofen 2.5 MG BID 11/14 2200 AC 12/04 PO 1012 Cholecalciferol 1,000 IU DAILY 11/15 1000 AC 12/04 PO 1011 Epoetin Aldair 10,000 UNIT Q168 12/03 1100 AC 12/03 SC 1348 Ferrous Sulfate 325 MG BID 11/14 2200 AC 12/04 PO 1011 Furosemide 20 MG ONCE ONE 12/03 1815 DC 12/03 IV 12/03 1816 1819 Furosemide 40 MG .STK-MED ONE 12/03 1814 DC IV 12/03 1815 Gabapentin 100 MG DAILY 11/14 1600 AC 12/04 PO 1011 Lactobacillus 1 CAP DAILY 11/15 1000 AC 12/04 Acidophilus PO 1011 Levothyroxine Sodium 0.075 MG DAILY AC 11/27 0700 AC 12/04 PO 0651 Magnesium Oxide 400 MG ONE ONE 12/03 1700 DC 12/03 PO 12/03 1701 1819 Melatonin 3 MG AT BEDTIME PRN 11/19 1545 AC PO Multivitamins 1 TAB DAILY 11/15 1000 AC 12/04 Therapeutic PO 1011 Omeprazole 40 MG DAILY AC 11/20 0954 AC 12/04 PO 0651 Potassium Chloride 40 MEQ ONCE ONE 12/03 1645 DC 12/03 PO 12/03 1646 1819 Senna/Docusate Sodium 2 TAB DAILY 12/04 1020 AC PO Sodium Bicarbonate 1,300 MG DAILY 12/03 1005 AC 12/04 PO 1011 Vital Signs & I&O Last 24 Hrs of Vitals and I&O: Vital Signs Date Time Temp Pulse Resp B/P Pulse O2 O2 Flow FiO2 Ox Delivery Rate 12/04 0840 94 Nasal 80% Cannula 12/04 0830 97.7 73 20 152/80 94 BIPAP 65% 12/04 0828 72 95 12/04 0800 Room Air 12/04 0549 79 95 12/04 0233 76 95 12/04 0013 97.2 80 20 140/80 94 BIPAP 12/04 0000 BIPAP 35% 12/03 2328 84 92 12/03 1643 92 Nasal 80% Cannula 12/03 1605 96.5 83 20 162/70 90 12/03 1600 92 Nasal 80% Cannula Intake & Output 12/04 1600 12/04 0800 12/04 0000 Intake Total 250 850 Output Total 50 20 Balance 200 830 Intake, IV 0 0 Intake, Oral 250 850 Number 0 Bowel Movements Output, Other 50 20 Exam Other Physical Findings: gen awake, arousable heent ncat cvs s1, s2 lungs rare rhonchi anterior chest abd soft, bs+ ext mild edema neuro paresis chronic Results Last 24 Hrs of Lab Results: Laboratory Tests 12/04/16 0715: Anion Gap 7, Estimated GFR 36 L, BUN/Creatinine Ratio 17.1, Magnesium 1.6, CBC w Diff MAN DIFF ORDERED, RBC 3.56 L, MCV 83.9, MCH 26.8 L, RDW 20.1 H, MPV 9.6, Segmented Neutrophils 90 H, Lymphocytes 6 L, Monocytes 4, Nucleated RBCs 28 H, Platelet Estimate VERIFIED BY SMEAR, Polychromasia 1+, Poikilocytosis 2+, Anisocytosis 2+, Target Cells 2+, PUBS MCHC 32.0 L Impression/Plan Impression/Plan Impression/Plan: Impression 81 year old woman - s/p cholecystostomy tube for acute cholecystitis - hypoxemic respiratory failure requiring bipap use - metabolic acidosis - LILLIE - acute on chronic anemia with blood loss - 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
--- NOTE | 2016-12-04 14:42 | PN- Infect Dx ---
Subjective Subjective: Afebrile without complaints Objective Last 24 Hrs of Vital Signs/I&O Vital Signs Date Time Temp Pulse Resp B/P Pulse O2 O2 Flow FiO2 Ox Delivery Rate 12/04 0840 94 Nasal 80% Cannula 12/04 0830 97.7 73 20 152/80 94 BIPAP 65% 12/04 0828 72 95 12/04 0800 Room Air 12/04 0549 79 95 12/04 0233 76 95 12/04 0013 97.2 80 20 140/80 94 BIPAP 12/04 0000 BIPAP 35% 12/03 2328 84 92 12/03 1643 92 Nasal 80% Cannula 12/03 1605 96.5 83 20 162/70 90 12/03 1600 92 Nasal 80% Cannula Intake & Output 12/04 1600 12/04 0800 12/04 0000 Intake Total 360 250 850 Output Total 15 50 20 Balance 345 200 830 Intake, IV 0 0 Intake, Oral 360 250 850 Number 1 0 Bowel Movements Output, Other 15 50 20 Physical Exam Other Physical Findings: She is awake and alert on high flow oxygen, appearing in no acute distress Lungs clear anteriorly Heart regular rhythm with no murmur Abdomen distended, nontender with positive bowel sounds; cholecystostomy tube in place with 80 mL output yesterday and 65 mL overnight Results Last 24 Hours of Lab Results: Laboratory Tests 12/04 714 Chemistry Sodium (137 - 145 mmol/L) 143 Potassium (3.5 - 5.1 mmol/L) 4.1 Chloride (98 - 107 mmol/L) 103 Carbon Dioxide (22 - 30 mmol/L) 32 H Anion Gap (5 - 16) 7 BUN (7 - 17 mg/dL) 24 H Creatinine (0.5 - 1.0 mg/dL) 1.4 H Estimated GFR (>60 ml/min) 36 L BUN/Creatinine Ratio (7 - 25 %) 17.1 Magnesium (1.6 - 2.3 mg/dL) 1.6 Hematology CBC w Diff MAN DIFF ORDERED WBC (4.8 - 10.8 /CUMM) 11.9 H RBC (4.20 - 5.40 /CUMM) 3.56 L Hgb (12.0 - 16.0 G/DL) 9.6 L Hct (37 - 47 %) 29.9 L MCV (81.0 - 99.0 FL) 83.9 MCH (27.0 - 31.0 PG) 26.8 L RDW (11.5 - 14.5 %) 20.1 H Plt Count (130 - 400 /CUMM) 277 MPV (7.4 - 10.4 FL) 9.6 Segmented Neutrophils (42.2 - 75.2 %) 90 H Lymphocytes (20.5 - 51.1 %) 6 L Monocytes (1.7 - 9.3 %) 4 Nucleated RBCs (0.0 - 0.0 /100WBC) 28 H Platelet Estimate (ADEQUATE) VERIFIED BY SMEAR Polychromasia 1+ Poikilocytosis 2+ Anisocytosis 2+ Target Cells 2+ PUBS MCHC (33.0 - 37.0 G/DL) 32.0 L Last 24 Hours of Jun Results: No recent cultures Recent Imaging Studies: Chest x-ray December 03, personally reviewed, reveals bilateral pleural effusions with bibasilar atelectasis with cardiomegaly and pulmonary congestion, unchanged from previous study Dopplers of both lower extremities December 03 negative Assessment/Plan Impression: Overall status remains poor, now requiring high flow oxygen since yesterday for what was felt to be congestive heart failure. Her renal function has further improved. She remains afebrile and white blood cell count has now decreased, off antibiotics, with no obvious focus of infection now 16 days status post placement of cholecystostomy tube for presumed acute cholecystitis. Her prognosis remains quite poor and reevaluation of her overall status and level of care would be appropriate. Suggestion: 1. Await decision regarding overall level of care 2. Continue to follow off antibiotics Will no longer follow at this time, but please call with any questions
--- NOTE | 2016-12-05 07:23 | PN- Housestaff ---
See Addendum Subjective Follow-up For: 1. Acute cholecystitis status post cholecystostomy tube 2. Acute hypoxic hypercarbic respiratory failure-im improving 3. LILLIE secondary to ATN from sepsis 4. Anasarca 5. Anemia of chronic inflammation secondary to kidney disease 6. History of recurrent PEs, DVTs, status post IVC filter 7. History of hypothyroidism 8. 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 Resting comfortably on the bed with BiPAP. Her cholecystostomy tube is in place draining yellowish greenish scant discharge. Patient remains afebrile. Patient is saturating 98% 0n 80% high flow, spoke with respiratory to taper down her oxygen. Patient is on continuous pulse oximetry therefore planner chief cannot be disconnected until she is off pulse oximetry. Review of Systems Constitutional: Reports: see HPI. Objective Last 24 Hrs of Vital Signs/I&O Vital Signs Date Time Temp Pulse Resp B/P Pulse O2 O2 Flow FiO2 Ox Delivery Rate 12/05 0925 98 Nasal 80% Cannula 12/05 0805 97.2 79 16 150/82 93 BIPAP 50% 12/05 0555 77 96 12/05 0548 79 98 12/05 0348 80 96 12/05 0106 79 98 12/05 0104 80 98 12/05 0000 99 Nasal 80% Cannula 12/04 2334 98.0 80 20 142/72 99 BIPAP 12/04 2215 90 92 12/04 2034 95 156/78 96 Nasal 80% Cannula 12/04 2030 94 Nasal 80% Cannula 12/04 1739 172/84 12/04 1705 96 186/92 12/04 1634 90 Nasal 80% Cannula 12/04 1626 186/92 12/04 1522 97.9 92 20 182/90 94 Nasal Cannula Intake & Output 12/05 1600 12/05 0800 12/05 0000 Intake Total 240 475.25 Output Total 65 15 Balance 175 460.25 Intake, IV 10.25 Intake, Oral 240 465 Number 2 Bowel Movements Output, Other 65 15 Physical Exam General Appearance: Alert, Oriented X3, Cooperative Skin: No Rashes HEENT: Atraumatic Neck: Supple Cardiovascular: Normal S1, Normal S2 Lungs: patient unable to move, auscultation from anterior chest showed decreased breath sounds Abdomen: Normal Bowel Sounds, Soft, No Tenderness Extremities: Normal Pulses Current Medications: Current Medications Sig/Kobi Start time Last Medication Dose Route Stop Time Status Admin Acetaminophen 650 MG Q6P PRN 11/14 1615 AC 11/26 PO 0949 Acetaminophen 1,000 MG Q6P PRN 11/14 1615 AC 11/21 IV 0854 Allopurinol 50 MG DAILY 11/15 1000 AC 12/04 PO 1011 Baclofen 2.5 MG BID 11/14 2200 AC 12/04 PO 2105 Cholecalciferol 1,000 IU DAILY 11/15 1000 AC 12/04 PO 1011 Epoetin Aldair 10,000 UNIT Q168 12/03 1100 AC 12/03 SC 1348 Ferrous Sulfate 325 MG BID 11/14 2200 AC 12/04 PO 2105 Gabapentin 100 MG DAILY 11/14 1600 AC 12/04 PO 1011 Hydralazine HCl 5 MG ONCE ONE 12/04 1630 DC 12/04 IV 12/04 1631 1705 Lactobacillus 1 CAP DAILY 11/15 1000 AC 12/04 Acidophilus PO 1011 Levothyroxine Sodium 0.075 MG DAILY AC 11/27 0700 AC 12/05 PO 0654 Melatonin 3 MG AT BEDTIME PRN 11/19 1545 AC PO Multivitamins 1 TAB DAILY 11/15 1000 AC 12/04 Therapeutic PO 1011 Nifedipine 30 MG DAILY 12/05 1000 AC PO Omeprazole 40 MG DAILY AC 11/20 0954 AC 12/05 PO 0654 Senna/Docusate Sodium 2 TAB DAILY 12/04 1020 AC 12/04 PO 1402 Sodium Bicarbonate 1,300 MG DAILY 12/03 1005 AC 12/04 PO 1011 Assessment/Plan Assessment: Patient is 81 yo female with pmh of HTN, hypothyroidism, HLD, CKD, quadriplegia s/p spinal cord stroke, DVT/PE on eliquis, Renal artery stenosis s/p renal artery stenting, who is a resident at [facility] was brought in with fever and possible UTI. Now status post cholecystectomy tube. Most recent chest x-ray from 12/02/2015 shows persistent bibasilar opacification and right greater than left pleural effusions Echocardiogram showed hyperdynamic EF of 80% with impaired LV relaxation and underfilled left ventricle and mildly hypokinetic right ventricle. Patient is being seen and treated for the following problems 1. Acute cholecystitis status post cholecystostomy tube 2. Acute hypoxic hypercarbic respiratory failure 3. LILLIE secondary to ATN from sepsis 4. Anasarca 5. Anemia of chronic inflammation secondary to kidney disease 6. History of recurrent PEs, DVTs, status post IVC filter 7. History of hypothyroidism 8. 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 History of hypertension 10. Overall poor prognosis and poor functional status Plan Acute hypoxic respiratory failure Patient desaturated to 87 on 12/04/16 on nasal cannula, was back on BiPAP. Her symptoms improved after 1 dose of Lasix however she continues to have low urinary output. Pulmonology consult service on board. Plan is to taper down her high flow oxygen. she will remain on continous pulse oximetery. It is unlikely that the patient has pulmonary embolism as she has an IVC filter We will continue to ensure aggressive intake output monitor to see if the patient is in negative fluid balance Patient was on IV heparin but had one episode of dark colored stool so Heparin has been placed on hold for now. No thoracentesis is done as effusions are too small to tap Acute cholecystitis status post cholecystostomy tube daily 16, 11/18/[address], no new complications. It continues to drain. Patient will be off antibiotics. Infectious disease consult service on board. Per general surgery, the tube will stay in for 6-8 weeks. Patient would need an outpatient follow with Dr. Walls for removal of the cholecystostomy tube if she gets discharged before that. 3. Acute kidney injury/ATN from sepsis/anasarca, low albumin Her creatinine is improving 1.4 on 12/07/16, her IV fluids were discontinued she is continued on Neupogen for a target hemoglobin of 10-11. We'll continue sodium bicarbonate 1300 mg twice a day. Nephrology consult service on board 4. Acute on chronic anemia : Patient continues to have guaiac positive stools, she was evaluated by GI no plans of further intervention at this point. Patient is maintained on protonix and probiotics. Patient is tolerating heart healthy diet. Her eliquis and Plavix are held due to guaiac positive stools 5.Qaudriplegia secondary to spinal cord stroke: Patient is at her baseline we'll continue her home medications. Occupational therapy is ordered for her arm exceercises and nursing staff with get her out of bed to chair. 8. Hx of DVT/PE s/p IVC filter: IV heparin was stopped due to melena and guaiac positive stools. We'll continue to monitor for now. Patient has an IVC filter placed in 2012 9. Hypothyroidism: c/w levothyroxine 50mcg daily 10. HTN: Continue Procardia. DVT ppx: po eliquis on hold, ALPS for now, full code. Goals of care discussion with the family. There has been multiple discussions regarding code status, but patient always wanted to be full code. Problem List: 1. Acute hypoxemic respiratory failure Pain Ratin Pain Location: n/a Pain Goal: Pain 4 or less Pain Plan: tylenol prn for pain Tomorrow's Labs & Rationales: cbc Consulting Request: Consulting Specialty: Neurology Consulting Physician: Dr. Rodriguez Reason for Consult: LILLIE, metabolic acidosis
[2016-12-05 08:05] VITALS: BP 150/82
--- NOTE | 2016-12-05 09:50 | PN- Pulmonary ---
Subjective HPI/Critical Care Issues: pt seen and examined on high flow 80% saturating 98% used bipap overnight afebrile Objective Current Medications: Current Medications Sig/Kobi Start time Last Medication Dose Route Stop Time Status Admin Acetaminophen 650 MG Q6P PRN 11/14 1615 AC 11/26 PO 0949 Acetaminophen 1,000 MG Q6P PRN 11/14 1615 AC 11/21 IV 0854 Allopurinol 50 MG DAILY 11/15 1000 AC 12/04 PO 1011 Baclofen 2.5 MG BID 11/14 2200 AC 12/04 PO 2105 Cholecalciferol 1,000 IU DAILY 11/15 1000 AC 12/04 PO 1011 Epoetin Aldair 10,000 UNIT Q168 12/03 1100 AC 12/03 SC 1348 Ferrous Sulfate 325 MG BID 11/14 2200 AC 12/04 PO 2105 Gabapentin 100 MG DAILY 11/14 1600 AC 12/04 PO 1011 Hydralazine HCl 5 MG ONCE ONE 12/04 1630 DC 12/04 IV 12/04 1631 1705 Lactobacillus 1 CAP DAILY 11/15 1000 AC 12/04 Acidophilus PO 1011 Levothyroxine Sodium 0.075 MG DAILY AC 11/27 0700 AC 12/05 PO 0654 Melatonin 3 MG AT BEDTIME PRN 11/19 1545 AC PO Multivitamins 1 TAB DAILY 11/15 1000 AC 12/04 Therapeutic PO 1011 Nifedipine 30 MG DAILY 12/05 1000 AC PO Omeprazole 40 MG DAILY AC 11/20 0954 AC 12/05 PO 0654 Senna/Docusate Sodium 2 TAB DAILY 12/04 1020 AC 12/04 PO 1402 Sodium Bicarbonate 1,300 MG DAILY 12/03 1005 AC 12/04 PO 1011 Vital Signs & I&O Last 24 Hrs of Vitals and I&O: Vital Signs Date Time Temp Pulse Resp B/P Pulse O2 O2 Flow FiO2 Ox Delivery Rate 12/05 0925 98 Nasal 80% Cannula 12/05 0805 97.2 79 16 150/82 93 BIPAP 50% 12/05 0555 77 96 12/05 0548 79 98 12/05 0348 80 96 12/05 0106 79 98 12/05 0104 80 98 12/05 0000 99 Nasal 80% Cannula 12/04 2334 98.0 80 20 142/72 99 BIPAP 12/04 2215 90 92 12/04 2034 95 156/78 96 Nasal 80% Cannula 12/04 2029 94 Nasal 80% Cannula 12/04 1739 172/84 12/04 1705 96 186/92 12/04 1634 90 Nasal 80% Cannula 12/04 1626 186/92 12/04 1522 97.9 92 20 182/90 94 Nasal Cannula Intake & Output 12/05 1600 12/05 0800 12/05 0000 Intake Total 240 475.25 Output Total 65 15 Balance 175 460.25 Intake, IV 10.25 Intake, Oral 240 465 Number 2 Bowel Movements Output, Other 65 15 Exam Other Physical Findings: gen awake, arousable heent ncat cvs s1, s2 lungs rare rhonchi anterior chest abd soft, bs+ ext mild edema neuro paresis chronic Impression/Plan Impression/Plan Impression/Plan: Impression 81 year old woman - s/p cholecystostomy tube for acute cholecystitis - hypoxemic respiratory failure requiring bipap use - metabolic acidosis - LILLIE - acute on chronic anemia with blood loss - 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
--- NOTE | 2016-12-05 10:24 | NUR ---
Physical Therapy - Consult received, pt is and ECF resident who is nonambulatory and requires total care for all mobility and ADLs. She requires Kayli lift with assist x 2 for OOB to custom tilt in space W/C. Recommend OOB via Bev lift to recliner while at [facility]. No skilled PT/OT needs identified.
--- NOTE | 2016-12-05 11:02 | NUR ---
PHYSICAL THERAPY. PT CONSULT RECEIVED AND Pt'S CHART REVIEWED. Pt IS A BRENNA LIFT AT BASELINE AT [facility] AND IS NOT APPROPRIATE FOR SKILLED PT SERVICES. PT WILL NOT FOLLOW.
[2016-12-05 16:08] VITALS: BP 182/90
[2016-12-05 19:01] VITALS: BP 150/64
[2016-12-06 00:37] VITALS: BP 146/68
--- NOTE | 2016-12-06 02:20 | NUR ---
LATE ENTRY: PT HR WENT UP TO 151 ON MONITOR. MD BROOKS MADE AWARE, EKG ORDERED AND COMPLETED. PT DENIES CP OR ANY CARDIAC DISTRESS. HR CURRENTLY 89. WILL CONTINUE TO MONITOR.
--- NOTE | 2016-12-06 07:32 | PN- Housestaff ---
PATRICA LOPEZ 12/06/16 0732: Subjective Follow-up For: 1. Acute cholecystitis status post cholecystostomy tube 2. Acute hypoxic hypercarbic respiratory failure 3. LILLIE secondary to ATN from sepsis 4. Anasarca 5. Anemia of chronic inflammation secondary to kidney disease 6. History of recurrent PEs, DVTs, status post IVC filter 7. History of hypothyroidism 8. 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 History of hypertension 10. Overall poor prognosis and poor functional status Tele-Events Since Last Visit: A run of SVT around 10 PM 8 beat V. tach around 6 AM Subjective: Patient seen and examined this morning. She feels fine and feels that she is improving. Any chest pain or any difficulty breathing. She required BiPAP overnight. Yesterday her oxygen saturation dropped when her high flow was changed from 80% to 50%. Patient remains afebrile and her leukocytosis has improved. Review of Systems Constitutional: Reports: see HPI. Objective Last 24 Hrs of Vital Signs/I&O Vital Signs Date Time Temp Pulse Resp B/P Pulse O2 O2 Flow FiO2 Ox Delivery Rate 12/06 1331 97.0 84 20 140/80 12/06 0942 97.0 84 20 140/80 12/06 0820 97.0 12/06 0810 94.8 84 20 140/80 88 Nasal Cannula 12/06 0809 90 Nasal 70% Cannula 12/06 0800 91 70% 12/06 0755 67 90 12/06 0629 77 91 12/06 0409 81 92 12/06 0158 82 90 12/06 0037 97.7 90 20 146/68 91 Nasal 70% Cannula 12/06 0036 92 91 12/06 0000 90 Nasal 70% Cannula 12/05 2230 90 91 12/05 1937 92 Nasal 70% Cannula 12/05 1901 150/64 12/05 1610 91 Nasal 70% Cannula 12/05 1608 98.2 18 182/90 Intake & Output 12/06 1600 12/06 0800 12/06 0000 Intake Total 800 120 120 Output Total 5 40 40 Balance 795 80 80 Intake, Oral 800 120 120 Output, Other 5 40 40 Physical Exam General Appearance: Alert, Oriented X3, Cooperative Skin: No Rashes, No Breakdown HEENT: Atraumatic Neck: Supple Lymphatic: Cervical nl Cardiovascular: Normal S1, Normal S2, No Murmurs Lungs: coarse breath sounds Abdomen: Soft, No Tenderness, cholecystostomy tube at place draining greenish yellow fluid Neurological: Normal Speech Extremities: No Edema Current Medications: Current Medications Sig/Kobi Start time Last Medication Dose Route Stop Time Status Admin Acetaminophen 650 MG Q6P PRN 11/14 1615 AC 11/26 PO 0949 Acetaminophen 1,000 MG Q6P PRN 11/14 1615 AC 11/21 IV 0854 Allopurinol 50 MG DAILY 11/15 1000 AC 12/06 PO 0943 Baclofen 2.5 MG BID 11/14 2200 AC 12/06 PO 0942 Cholecalciferol 1,000 IU DAILY 11/15 1000 AC 12/06 PO 0943 Epoetin Aldair 10,000 UNIT Q168 12/03 1100 AC 12/03 SC 1348 Ferrous Sulfate 325 MG BID 11/14 2200 AC 12/06 PO 0942 Gabapentin 100 MG DAILY 11/14 1600 AC 12/06 PO 0942 Heparin Sodium 5,000 UNIT Q8 12/05 1400 AC 12/06 (Porcine) SC 1331 Lactobacillus 1 CAP DAILY 11/15 1000 AC 12/06 Acidophilus PO 0942 Levothyroxine Sodium 0.075 MG DAILY AC 11/27 0700 AC 12/06 PO 0541 Magnesium Oxide 400 MG ONE ONE 12/06 1445 CAN PO 12/06 1446 Magnesium Sulfate 1 GM ONCE ONE 12/06 1445 AC Dextrose/Water 100 ML IV 12/06 1844 Melatonin 3 MG AT BEDTIME PRN 11/19 1545 AC PO Metoprolol Tartrate 25 MG BID 12/06 1200 AC 12/06 PO 1331 Multivitamins 1 TAB DAILY 11/15 1000 AC 12/06 Therapeutic PO 0943 Nifedipine 30 MG DAILY 12/05 1000 AC 12/06 PO 0942 Omeprazole 40 MG DAILY AC 11/20 0954 AC 12/06 PO 0541 Senna/Docusate Sodium 2 TAB DAILY 12/04 1020 AC 12/04 PO 1402 Sodium Bicarbonate 1,300 MG DAILY 12/03 1005 AC 12/06 PO 0943 Last 24 Hrs of Lab/Jun Results Last 24 Hrs of Labs/Mics: Laboratory Tests 12/06/16 0958: Anion Gap 10, Estimated GFR 36 L, BUN/Creatinine Ratio 15.0, Magnesium 1.4 L 12/06/16 0650: CBC w Diff MAN DIFF ORDERED, RBC 3.59 L, MCV 84.8, MCH 26.8 L, RDW 20.0 H, MPV 10.2, Segmented Neutrophils 80 H, Lymphocytes 14 L, Monocytes 6, Nucleated RBCs 33 H, Platelet Estimate VERIFIED BY SMEAR, Hypochromic-Microcytic 1+, Poikilocytosis 2+, Anisocytosis 2+, Target Cells 2+, PUBS MCHC 31.5 L Assessment/Plan Assessment: Patient is 81 yo female with pmh of HTN, hypothyroidism, HLD, CKD, quadriplegia s/p spinal cord stroke, DVT/PE on eliquis, Renal artery stenosis s/p renal artery stenting, who is a resident at [facility] was brought in with fever and possible UTI. Now status post cholecystectomy tube. Most recent chest x-ray from 12/02/2015 shows persistent bibasilar opacification and right greater than left pleural effusions Echocardiogram showed hyperdynamic EF of 80% with impaired LV relaxation and underfilled left ventricle and mildly hypokinetic right ventricle. Patient is being seen and treated for the following problems 1. Acute cholecystitis status post cholecystostomy tube 2. Acute hypoxic hypercarbic respiratory failure 3. LILLIE secondary to ATN from sepsis 4. Anasarca 5. Anemia of chronic inflammation secondary to kidney disease 6. History of recurrent PEs, DVTs, status post IVC filter 7. History of hypothyroidism 8. 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 History of hypertension 10. Overall poor prognosis and poor functional status Plan Acute hypoxic respiratory failure Patient desaturated to 87 on 12/04/16 on nasal cannula, was back on BiPAP. At that time she was given 1 dose of Lasix and her symptoms improved. She continues to be on nocturnal BiPAP Plan is to taper down her high flow oxygen keeping her oxygen saturations greater than 88% Pulmonology consult service on board. Previously there was a suspicion that patient had some pleural effusions and thoracentesis was considered however upon evaluation by IR there were not enough pleural effusions to be tapped Patient is currently on 70% high flow saturating 88% we'll continue to monitor closely. Arrhythmia On 12/06/16 patient had a 8 be run of V. tach and prior to that on 12/05/16 patient had a small run of SVT as shown on the senior business manager. Dr. Kirk, the medical coding specialist on board for this patient evaluated the patient and recommended 25 mg metoprolol twice a day. Will continue her on the senior business manager and watch her closely Acute cholecystitis status post cholecystostomy tube daily 16, 11/18/[address], no new complications. It continues to drain. Patient will be off antibiotics. Infectious disease consult service on board. Per general surgery, the tube will stay in for 6-8 weeks. Patient would need an outpatient follow up with Dr. Walls for removal of the cholecystostomy tube if she gets discharged before that. 3. Acute kidney injury/ATN from sepsis/anasarca, low albumin Her creatinine is improving 1.4 on 12/07/16, this looks like her new baseline. She she is not on IV fluids anymore. she is continued on Neupogen for a target hemoglobin of 10-11. We'll continue sodium bicarbonate 1300 mg twice a day as it is known to be beneficial in chronic kidney disease. Nephrology consult service on board 4. Acute on chronic anemia : Patient had guaiac positive stools, she was evaluated by GI no plans of further intervention at this point. Patient is maintained on protonix and probiotics. Patient is tolerating heart healthy diet. Her eliquis and Plavix are held due to guaiac positive stools 5.Qaudriplegia secondary to spinal cord stroke: Patient is at her baseline we'll continue her home medications. Occupational therapy is ordered for her arm excercises and nursing staff with get her out of bed to chair. 8. Hx of DVT/PE s/p IVC filter: IV heparin was stopped due to melena and guaiac positive stools. We'll continue to monitor for now. Patient has an IVC filter placed in 2012 9. Hypothyroidism: c/w levothyroxine 50mcg daily 10. HTN: Continue Procardia. DVT ppx: po eliquis on hold, ALPS for now, full code. Goals of care discussion with the family. There has been multiple discussions regarding code status, but patient always wanted to be full code. Problem List: 1. Acute respiratory failure with hypoxia and hypercarbia Pain Ratin Pain Location: n/a Pain Goal: Pain 4 or less Pain Plan: tylenol prn for pain Tomorrow's Labs & Rationales: None Consulting Request: Consulting Specialty: Neurology Consulting Physician: Dr. Rodriguez Reason for Consult: LILLIE, metabolic acidosis D'KOHLER MD,AMY 12/06/16 1500: Attending MD Review Statement Attending Statement Attending MD Statement: examined this patient, discuss w/resident/PA/SHIP PILOT DISPATCHER, agreed w/resident/PA/SHIP PILOT DISPATCHER, reviewed EMR data (avail), discussed with nursing, discussed with case mgmt, reviewed images Attending Assessment/Plan: Patient continues to be an acute hypoxemic respiratory failure. She was doing well on 80% but when we wean her down to 70% her sats went into the 80s. She has multifactorial acute hypoxemic respiratory failure. Her cholecystostomy tube needs to be here all the way of 6-8 weeks from November 18. In addition now she is having couplets and bigeminy with runs of nonsustained VT. Dr. Kirk saw her and started on low-dose beta jb. We are going to have Lakshmi evaluate her for LTAC at this point. We cannot transition the O2 down and she remains a full code. She is stable off antibiotics. Now that her crit has stabilized we've started on subcutaneous heparin for DVT prophylaxis and she has an IVC filter. She is quadriplegic and a Kayli lift at baseline.
[2016-12-06 07:50] LABS: HEMATOCRIT 30.4 % (37-47); MEAN CORPUSCULAR HGB 26.8 PG (27.0-31.0); MEAN CORPUSCULAR HGB CONC 31.5 G/DL (33.0-37.0); MEAN CORPUSCULAR VOLUME 84.8 FL (81.0-99.0); MEAN PLATELET VOLUME 10.2 FL (7.4-10.4); PLATELET COUNT 264 /CUMM (130-400); RED BLOOD CELL CT 3.59 /CUMM (4.20-5.40)
--- NOTE | 2016-12-06 07:58 | NUR ---
LATE ENTRY: PT HAD A COUPLET, TRIPLET, AND 8 BEAT RUN. MD BURCIAGA MADE AWARE. NNO.
--- NOTE | 2016-12-06 08:00 | NUR ---
OCCUPATIONAL THERAPY NOTE: OT CONSULT RECEIVED AND CHART REVIEWED. PER W-10 AND CASE MANAGEMENT NOTE, PT IS A TOTAL CARE WITH ALL ADL AND BRENNA FOR MOBILITY AT HER BASELINE. ACUTE SKILLED OCCUPATIONAL THERAPY IS NOT APPROPRIATE. PT WILL D/C BACK TO ECF WHEN MEDICAILLY APPROPRIATE. OT WILL NOT FOLLOW.
[2016-12-06 08:10] VITALS: BP 140/80
[2016-12-06 08:53] LABS: WHITE BLOOD CELL COUNT 7.8 /CUMM (4.8-10.8)
--- NOTE | 2016-12-06 10:04 | PN- Pulmonary ---
Subjective HPI/Critical Care Issues: pt seen and examined does not like to use pap therapy at night okay on high flow both sisters present today no new events Objective Current Medications: Current Medications Sig/Kobi Start time Last Medication Dose Route Stop Time Status Admin Acetaminophen 650 MG Q6P PRN 11/14 1615 AC 11/26 PO 0949 Acetaminophen 1,000 MG Q6P PRN 11/14 1615 AC 11/21 IV 0854 Allopurinol 50 MG DAILY 11/15 1000 AC 12/06 PO 0943 Baclofen 2.5 MG BID 11/14 2200 AC 12/06 PO 0942 Cholecalciferol 1,000 IU DAILY 11/15 1000 AC 12/06 PO 0943 Epoetin Aldair 10,000 UNIT Q168 12/03 1100 AC 12/03 SC 1348 Ferrous Sulfate 325 MG BID 11/14 2200 AC 12/06 PO 0942 Gabapentin 100 MG DAILY 11/14 1600 AC 12/06 PO 0942 Heparin Sodium 5,000 UNIT Q8 12/05 1400 AC 12/06 (Porcine) SC 0541 Lactobacillus 1 CAP DAILY 11/15 1000 AC 12/06 Acidophilus PO 0942 Levothyroxine Sodium 0.075 MG DAILY AC 11/27 0700 AC 12/06 PO 0541 Melatonin 3 MG AT BEDTIME PRN 11/19 1545 AC PO Multivitamins 1 TAB DAILY 11/15 1000 AC 12/06 Therapeutic PO 0943 Nifedipine 30 MG DAILY 12/05 1000 AC 12/06 PO 0942 Omeprazole 40 MG DAILY AC 11/20 0954 AC 12/06 PO 0541 Patient Medication 1 ED .STK-MED ONE 12/05 1417 OR Teaching ED 12/05 1418 Senna/Docusate Sodium 2 TAB DAILY 12/04 1020 AC 12/04 PO 1402 Sodium Bicarbonate 1,300 MG DAILY 12/03 1005 AC 12/06 PO 0943 Vital Signs & I&O Last 24 Hrs of Vitals and I&O: Vital Signs Date Time Temp Pulse Resp B/P Pulse O2 O2 Flow FiO2 Ox Delivery Rate 12/06 0942 97.0 84 20 140/80 12/06 0820 97.0 12/06 0810 94.8 84 20 140/80 88 Nasal Cannula 12/06 0809 90 Nasal 70% Cannula 12/06 0800 91 70% 12/06 0755 67 90 12/06 0629 77 91 12/06 0409 81 92 12/06 0158 82 90 12/06 0037 97.7 90 20 146/68 91 Nasal 70% Cannula 12/06 0036 92 91 12/06 0000 90 Nasal 70% Cannula 12/05 2230 90 91 12/05 1937 92 Nasal 70% Cannula 12/05 1901 150/64 12/05 1610 91 Nasal 70% Cannula 12/05 1608 98.2 18 182/90 Intake & Output 12/06 1600 12/06 0800 12/06 0000 Intake Total 120 120 Output Total 40 40 Balance 80 80 Intake, Oral 120 120 Output, Other 40 40 Exam Other Physical Findings: gen awake, arousable heent ncat cvs s1, s2 lungs rare rhonchi anterior chest abd soft, bs+ ext mild edema neuro paresis chronic Results Last 24 Hrs of Lab Results: Laboratory Tests 12/06/16 0650: CBC w Diff MAN DIFF ORDERED, RBC 3.59 L, MCV 84.8, MCH 26.8 L, RDW 20.0 H, MPV 10.2, Segmented Neutrophils 80 H, Lymphocytes 14 L, Monocytes 6, Nucleated RBCs 33 H, Platelet Estimate VERIFIED BY SMEAR, Hypochromic-Microcytic 1+, Poikilocytosis 2+, Anisocytosis 2+, Target Cells 2+, PUBS MCHC 31.5 L Impression/Plan Impression/Plan Impression/Plan: Impression 81 year old woman - s/p cholecystostomy tube for acute cholecystitis - hypoxemic respiratory failure requiring bipap use - metabolic acidosis - LILLIE - acute on chronic anemia with blood loss - 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
--- NOTE | 2016-12-06 11:39 | PN- Cardiology ---
Subjective Subjective: * Afshan is more alert and communicative. She reports intermittent shortness of breath. * PVC's and NSVT are noted on telemetry * creatinine improved to 1.4 and WBC improved to 7.8 Objective Vital Signs and I&Os Vital Signs Date Time Temp Pulse Resp B/P Pulse O2 O2 Flow FiO2 Ox Delivery Rate 12/06 0942 97.0 84 20 140/80 12/06 0820 97.0 12/06 0810 94.8 84 20 140/80 88 Nasal Cannula 12/06 0809 90 Nasal 70% Cannula 12/06 0800 91 70% 12/06 0755 67 90 12/06 0629 77 91 12/06 0409 81 92 12/06 0158 82 90 12/06 0037 97.7 90 20 146/68 91 Nasal 70% Cannula 12/06 0036 92 91 12/06 0000 90 Nasal 70% Cannula 12/05 2230 90 91 12/05 1937 92 Nasal 70% Cannula 12/05 1901 150/64 12/05 1610 91 Nasal 70% Cannula 12/05 1608 98.2 18 182/90 Intake & Output 12/06 1600 12/06 0800 12/06 0000 12/05 1600 12/05 0800 12/05 0000 Intake Total 120 120 240 475.25 Output Total 40 40 30 65 15 Balance 80 80 -30 175 460.25 Intake, IV 10.25 Intake, Oral 120 120 240 465 Number 2 Bowel Movements Output, Other 40 40 30 65 15 Physical Exam: General: WD/ WN female in NAD; alert and oriented x 3 Neck: no JVD Heart: RRR w/o murmur Lungs: clear bilaterally Extremities: no edema Assessment/Plan Assessment/Plan * This patient has some NSVT in the setting of a normal EF. We will begin metoprolol at 25mg PO BID. * Renal function and WBC are improved. * H/H has improved with improvement in her renal function and with the help of epogen but guaiac positive stool remains a problem. She is protected by the IVC filter so we will hold off on anticoagulation with Eliquis. Continue telemetry? Yes
--- NOTE | 2016-12-06 11:45 | RADIOLOGY REPORT ---
EXAMINATION: XR PORTABLE CHEST CLINICAL INFORMATION: Pulmonary consolidation/effusion. Hypoxia. COMPARISON: Portable chest 12/03/2016. TECHNIQUE: Portable AP view of the chest was obtained. FINDINGS: Lungs are hypoexpanded with bibasilar moderate haziness from underlying pleural effusion and bibasilar atelectasis. The upper lungs are clear. The heart size is borderline enlarged with prominence of pulmonary vascularity. There is mild dextroscoliosis of dorsal spine spine or positional. No lytic process. IMPRESSION: Persistent bibasilar haziness suggestive of pleural effusion with underlying atelectasis. The lungs are hypoventilated. There is mild cardiomegaly with mild prominence of pulmonary vascularity suspicious for congestion. Similar findings were present on 12/03/2016.
[2016-12-06 15:45] VITALS: BP 130/80
[2016-12-06 23:30] VITALS: BP 145/70
[2016-12-07 08:00] VITALS: BP 140/70
--- NOTE | 2016-12-07 08:50 | PN- Housestaff ---
NAVEED METZ,DIOR 12/07/16 0849: Subjective Follow-up For: 1. Acute cholecystitis status post cholecystostomy tube 2. Acute hypoxic hypercarbic respiratory failure 3. LILLIE secondary to ATN from sepsis 4. Anasarca 5. Anemia of chronic inflammation secondary to kidney disease 6. History of recurrent PEs, DVTs, status post IVC filter 7. History of hypothyroidism 8. 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 History of hypertension 10. Overall poor prognosis and poor functional status Tele-Events Since Last Visit: Sinus bradychardia, HR 57-61 Subjective: Patient seen and examined at bedside. No events reported overnight. Patient offers no new compalints. She reports feeling well with no issues. Remains afebrile and her leukocytosis has resolved. Denies any f/c, chest pain, dyspnea, palpitations, n/v/c/d, headache, dizziness. Review of Systems Constitutional: Reports: see HPI. Objective Last 24 Hrs of Vital Signs/I&O Vital Signs Date Time Temp Pulse Resp B/P Pulse O2 O2 Flow FiO2 Ox Delivery Rate 12/07 0800 98.1 63 20 140/70 93 BIPAP 12/07 0041 61 92 12/07 0000 BIPAP 60% 12/06 2330 98.6 62 16 145/70 91 Nasal Cannula 12/06 2214 67 92 12/06 2141 69 152/66 12/06 1922 91 Nasal 70% Cannula 12/06 1600 Nasal 70% Cannula 12/06 1545 97.0 79 18 130/80 97 12/06 1331 97.0 84 20 140/80 12/06 0942 97.0 84 20 140/80 Intake & Output 12/07 1600 12/07 0800 12/07 0000 Intake Total 50 600 Output Total 30 60 Balance 20 540 Intake, IV 120 Intake, Oral 50 480 Output, Other 30 60 Physical Exam General Appearance: Alert, Oriented X3, Cooperative Other Physical Findings: Skin: No Rashes, No Breakdown HEENT: Atraumatic Neck: Supple Lymphatic: Cervical nl Cardiovascular: Normal S1, Normal S2, No Murmurs Lungs: coarse breath sounds Abdomen: Soft, No Tenderness, cholecystostomy tube at place draining greenish yellow fluid Neurological: Normal Speech Extremities: No Edema Current Medications: Current Medications Sig/Kobi Start time Last Medication Dose Route Stop Time Status Admin Acetaminophen 650 MG Q6P PRN 11/14 1615 AC 11/26 PO 0949 Acetaminophen 1,000 MG Q6P PRN 11/14 1615 AC 11/21 IV 0854 Allopurinol 50 MG DAILY 11/15 1000 AC 12/06 PO 0943 Baclofen 2.5 MG BID 11/14 2200 AC 12/06 PO 2141 Cholecalciferol 1,000 IU DAILY 11/15 1000 AC 12/06 PO 0943 Epoetin Aldair 10,000 UNIT Q168 12/03 1100 AC 12/03 SC 1348 Ferrous Sulfate 325 MG BID 11/14 2200 AC 12/06 PO 2141 Gabapentin 100 MG DAILY 11/14 1600 AC 12/06 PO 0942 Heparin Sodium 5,000 UNIT Q8 12/05 1400 AC 12/07 (Porcine) SC 0546 Lactobacillus 1 CAP DAILY 11/15 1000 AC 12/06 Acidophilus PO 0942 Levothyroxine Sodium 0.075 MG DAILY AC 11/27 0700 AC 12/07 PO 0546 Magnesium Oxide 400 MG ONE ONE 12/06 1445 CAN PO 12/06 1446 Magnesium Sulfate 1 GM ONCE ONE 12/06 1445 DC 12/06 Dextrose/Water 100 ML IV 12/06 1844 1655 Melatonin 3 MG AT BEDTIME PRN 11/19 1545 AC PO Metoprolol Tartrate 25 MG BID 12/06 1200 AC 12/06 PO 2141 Multivitamins 1 TAB DAILY 11/15 1000 AC 12/06 Therapeutic PO 0943 Nifedipine 30 MG DAILY 12/05 1000 AC 12/06 PO 0942 Omeprazole 40 MG DAILY AC 11/20 0954 AC 12/07 PO 0546 Senna/Docusate Sodium 2 TAB DAILY 12/04 1020 AC 12/04 PO 1402 Sodium Bicarbonate 1,300 MG DAILY 12/03 1005 AC 12/06 PO 0943 Last 24 Hrs of Lab/Jun Results Last 24 Hrs of Labs/Mics: Laboratory Tests 12/06/16 0958: Anion Gap 10, Estimated GFR 36 L, BUN/Creatinine Ratio 15.0, Magnesium 1.4 L Assessment/Plan Assessment: Patient is 81 yo female with pmh of HTN, hypothyroidism, HLD, CKD, quadriplegia s/p spinal cord stroke, DVT/PE on eliquis, Renal artery stenosis s/p renal artery stenting, who is a resident at [facility] was brought in with fever and possible UTI. Now status post cholecystectomy tube. Most recent chest x-ray from 12/02/2015 shows persistent bibasilar opacification and right greater than left pleural effusions Echocardiogram showed hyperdynamic EF of 80% with impaired LV relaxation and underfilled left ventricle and mildly hypokinetic right ventricle. Acute hypoxic respiratory failure Patient desaturated to 87 on 12/04/16 on nasal cannula, was back on BiPAP. At that time she was given 1 dose of Lasix and her symptoms improved. She continues to be on nocturnal BiPAP. Currently satting at 93% Cont to taper down oxygen as tolerated Pulmonology consult service on board. Previously there was a suspicion that patient had some pleural effusions and thoracentesis was considered however upon evaluation by IR there were not enough pleural effusions to be tapped Arrhythmia On 12/06/16 patient had a 8 be run of V. tach and prior to that on 12/05/16 patient had a small run of SVT as shown on the predatory animal exterminator. Dr. Kirk, the electronic security specialist on board for this patient evaluated the patient and recommended 25 mg metoprolol twice a day. Will continue her on the predatory animal exterminator and watch her closely Acute cholecystitis status post cholecystostomy tube 11/18/[address], no new complications. It continues to drain. Patient will be off antibiotics. Infectious disease consult service on board. Per general surgery, the tube will stay in for 6-8 weeks. Patient would need an outpatient follow up with Dr. Walls for removal of the cholecystostomy tube if she gets discharged before that. Acute kidney injury/ATN from sepsis/anasarca, low albumin * BEP daily, trend creatinine. * Cont Neupogen for a target hemoglobin of 10-11. * Continue sodium bicarbonate 1300 mg twice a day * Nephrology consult service on board Acute on chronic anemia : Patient had guaiac positive stools, she was evaluated by GI no plans of further intervention at this point. Patient is maintained on protonix and probiotics. Patient is tolerating heart healthy diet. 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 Occupational therapy is ordered for her arm excercises and nursing staff with get her out of bed to chair. Hx of DVT/PE s/p IVC filter: IV heparin was stopped due to melena and guaiac positive stools. We'll continue to monitor for now. Patient has an IVC filter placed in 2012 Hypothyroidism: c/w levothyroxine 50mcg daily HTN: Continue Procardia. DVT ppx: po eliquis on hold, ALPS for now, full code. Goals of care discussion with the family. There has been multiple discussions regarding code status, but patient always wanted to be full code. Problem List: 1. Acute respiratory failure with hypoxia and hypercarbia 2. Acute diastolic CHF (congestive heart failure) 3. Pulmonary hypertension, moderate to severe 4. Hypothyroidism 5. Bright red blood per rectum 6. Acute hypoxemic respiratory failure 7. Acute blood loss anemia 8. Anasarca 9. Diverticula of colon 10. Malnutrition 11. Anemia Pain Ratin Pain Location: 0 Pain Goal: Remain pain free Pain Plan: tylenol prn for pain Tomorrow's Labs & Rationales: None Consulting Request: Consulting Specialty: Neurology Consulting Physician: Dr. Rodriguez Reason for Consult: LILLIE, metabolic acidosis ROBIN METZ,[facility] 12/07/16 1256: Attending MD Review Statement Attending Statement Attending MD Statement: examined this patient, discuss w/resident/PA/BUTTONHOLE FACER, agreed w/resident/PA/BUTTONHOLE FACER, discussed with family, reviewed EMR data (avail), discussed with nursing, discussed with case mgmt, reviewed images, amended to note Attending Assessment/Plan: 81 year old female with multiple comorbidities, quadriplegic from spinal cord infarction, has been admitted on the floor for quite some time now. She is post cholecystostomy tube and is also being currently treated for acute hypoxemic respiratory failure. Cardiology and nephro on board. She also has runs of SVT in an SVT and is currently on low-dose beta jb. Patient was seen and examined on the bedside and had a long discussion with the daughter about the patient's clinical condition. The plan is for [facility] evaluation for LTAC on Friday. Patient is currently stable with poor prognosis.
--- NOTE | 2016-12-07 11:53 | PN- Pulmonary ---
Subjective HPI/Critical Care Issues: pt seen and examined no events on 75% fio2 saturating well awake and comfortable Objective Current Medications: Current Medications Sig/Kobi Start time Last Medication Dose Route Stop Time Status Admin Acetaminophen 650 MG Q6P PRN 11/14 1615 AC 11/26 PO 0949 Acetaminophen 1,000 MG Q6P PRN 11/14 1615 AC 11/21 IV 0854 Allopurinol 50 MG DAILY 11/15 1000 AC 12/07 PO 1012 Baclofen 2.5 MG BID 11/14 2200 AC 12/07 PO 1012 Cholecalciferol 1,000 IU DAILY 11/15 1000 AC 12/07 PO 1011 Epoetin Aldair 10,000 UNIT Q168 12/03 1100 AC 12/03 SC 1348 Ferrous Sulfate 325 MG BID 11/14 2200 AC 12/07 PO 1012 Gabapentin 100 MG DAILY 11/14 1600 AC 12/07 PO 1011 Heparin Sodium 5,000 UNIT Q8 12/05 1400 AC 12/07 (Porcine) SC 0546 Lactobacillus 1 CAP DAILY 11/15 1000 AC 12/07 Acidophilus PO 1011 Levothyroxine Sodium 0.075 MG DAILY AC 11/27 0700 AC 12/07 PO 0546 Magnesium Chloride 64 MG BID 12/07 1100 AC PO 12/08 0000 Magnesium Oxide 400 MG ONE ONE 12/06 1445 CAN PO 12/06 1446 Magnesium Sulfate 1 GM ONCE ONE 12/06 1445 DC 12/06 Dextrose/Water 100 ML IV 12/06 1844 1655 Melatonin 3 MG AT BEDTIME PRN 11/19 1545 AC PO Metoprolol Tartrate 25 MG BID 12/06 1200 AC 12/07 PO 1011 Multivitamins 1 TAB DAILY 11/15 1000 AC 12/07 Therapeutic PO 1011 Nifedipine 30 MG DAILY 12/05 1000 AC 12/07 PO 1011 Omeprazole 40 MG DAILY AC 11/20 0954 AC 12/07 PO 0546 Potassium Chloride 10 MEQ ONCE ONE 12/07 1115 CAN IV 12/07 1116 Potassium Chloride 20 MEQ BID 12/07 1100 DC PO 12/07 2201 Senna/Docusate Sodium 2 TAB DAILY 12/04 1020 AC 12/07 PO 1011 Sodium Bicarbonate 1,300 MG DAILY 12/03 1005 AC 12/07 PO 1011 Vital Signs & I&O Last 24 Hrs of Vitals and I&O: Vital Signs Date Time Temp Pulse Resp B/P Pulse O2 O2 Flow FiO2 Ox Delivery Rate 12/07 1011 132/60 12/07 1011 132/60 12/07 0800 98.1 63 20 140/70 93 BIPAP 12/07 0041 61 92 12/07 0000 BIPAP 60% 12/06 2330 98.6 62 16 145/70 91 Nasal Cannula 12/06 2214 67 92 12/06 2141 69 152/66 12/06 1922 91 Nasal 70% Cannula 12/06 1600 Nasal 70% Cannula 12/06 1545 97.0 79 18 130/80 97 12/06 1331 97.0 84 20 140/80 Intake & Output 12/07 1600 12/07 0800 12/07 0000 Intake Total 50 600 Output Total 30 60 Balance 20 540 Intake, IV 120 Intake, Oral 50 480 Output, Other 30 60 Exam Other Physical Findings: gen awake, arousable heent ncat cvs s1, s2 lungs rare rhonchi anterior chest abd soft, bs+ ext mild edema neuro paresis chronic Impression/Plan Impression/Plan Impression/Plan: Impression 81 year old woman - s/p cholecystostomy tube for acute cholecystitis - hypoxemic respiratory failure requiring bipap use - metabolic acidosis - LILLIE - acute on chronic anemia with blood loss - 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
--- NOTE | 2016-12-07 15:33 | PN- Cardiology ---
Subjective Subjective: * Resting comfortably. No complaints. * sinus rhythm * WBC count is now in the normal range at 7.8 * creatinine stable at 1.4 Objective Vital Signs and I&Os Vital Signs Date Time Temp Pulse Resp B/P Pulse O2 O2 Flow FiO2 Ox Delivery Rate 12/07 1314 89 Nasal 70% Cannula 12/07 1011 132/60 12/07 1011 132/60 12/07 0800 95 Nasal 70% Cannula 12/07 0800 98.1 63 20 140/70 93 BIPAP 12/07 0041 61 92 12/07 0000 BIPAP 60% 12/06 2330 98.6 62 16 145/70 91 Nasal Cannula 12/06 2214 67 92 12/06 2141 69 152/66 12/06 1922 91 Nasal 70% Cannula 12/06 1600 Nasal 70% Cannula 12/06 1545 97.0 79 18 130/80 97 Intake & Output 12/07 1600 12/07 0800 12/07 0000 12/06 1600 12/06 0800 12/06 0000 Intake Total 480 50 600 800 120 120 Output Total 30 30 60 5 40 40 Balance 450 20 540 795 80 80 Intake, IV 120 Intake, Oral 480 50 480 800 120 120 Output, Other 30 30 60 5 40 40 Physical Exam: General: WD/ WN female in NAD; alert and oriented x 3 Neck: no JVD Heart: RRR w/o murmur Lungs: clear bilaterally Extremities: no edema Assessment/Plan Assessment/Plan * This patient has had some NSVT in the setting of a normal EF. No further arrhythmias today. Continue metoprolol at 25mg PO BID. * Renal function and WBC are improved. * H/H has improved with improvement in her renal function and with the help of epogen but guaiac positive stool remains a problem. She is protected by the IVC filter so we will hold off on anticoagulation with Eliquis. Continue telemetry? Yes
[2016-12-07 16:10] VITALS: BP 132/68
[2016-12-08 00:08] VITALS: BP 142/70
[2016-12-08 07:50] VITALS: BP 140/68
--- NOTE | 2016-12-08 08:50 | PN- Housestaff ---
YANICK METZ,TARA 12/08/16 0850: Subjective Follow-up For: 1. Acute cholecystitis status post cholecystostomy tube 2. Acute hypoxic hypercarbic respiratory failure 3. LILLIE secondary to ATN from sepsis 4. Anasarca 5. Anemia of chronic inflammation secondary to kidney disease 6. History of recurrent PEs, DVTs, status post IVC filter 7. History of hypothyroidism 8. 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 History of hypertension 10. Overall poor prognosis and poor functional status Complaints: no complaints Tele-Events Since Last Visit: Normal sinus rhythm, sinus bradycardia of heart rate less than 50, 3 beats of V. tach at 8:30 Subjective: Recently seen and examined at the bedside. Most of the conversation was done with Daughter. She denies of any new complaints. Denies any chest pain, dyspnea, palpitation, nausea, vomiting, constipation, diarrhea, headache, dizziness Review of Systems Constitutional: Denies: no symptoms. Objective Last 24 Hrs of Vital Signs/I&O Vital Signs Date Time Temp Pulse Resp B/P Pulse O2 O2 Flow FiO2 Ox Delivery Rate 12/08 1915 90 Nasal 60% Cannula 12/08 1718 97.8 62 20 138/76 89 12/08 1600 94 Nasal 55% Cannula 12/08 1136 91 Nasal 55% Cannula 12/08 0830 57 96 12/08 0800 BIPAP 60% 12/08 0750 97.3 57 20 140/68 96 BIPAP 12/08 0619 60 98 12/08 0328 59 95 12/08 0042 60 92 12/08 0008 97.6 63 20 142/70 89 12/08 0000 94 BIPAP 65% 12/07 2352 60 91 12/07 2349 60 89 12/07 2155 90 BIPAP 60% 12/07 2140 63 90 Intake & Output 12/08 1600 12/08 0800 12/08 0000 Intake Total 300 240 580 Output Total 600 55 50 Balance -300 185 530 Intake, IV 100 Intake, Oral 300 240 480 Number 3 2 Bowel Movements Output, Other 55 50 Output, Urine 600 Physical Exam General Appearance: Alert, Oriented X3, Cooperative Skin: No Rashes, No Breakdown Cardiovascular: Normal S1, Normal S2, No Murmurs Lungs: Clear to Auscultation Abdomen: Soft, No Tenderness, cholecystostomy tube at place draining greenish yellow fluid Neurological: responding to verbal command by opening eyes Extremities: No Clubbing, No Cyanosis, No Edema Assessment/Plan Assessment: Patient is 81 yo female with pmh of HTN, hypothyroidism, HLD, CKD, quadriplegia s/p spinal cord stroke, DVT/PE on eliquis, Renal artery stenosis s/p renal artery stenting, who is a resident at [facility] was brought in with fever and possible UTI. Now status post cholecystectomy tube. Most recent chest x-ray from 12/02/2015 shows persistent bibasilar opacification and right greater than left pleural effusions Echocardiogram showed hyperdynamic EF of 80% with impaired LV relaxation and underfilled left ventricle and mildly hypokinetic right ventricle. Plan - Plan is for [facility] evaluation for LTAC on Friday. Acute hypoxic respiratory failure Patient desaturated to 87 on 12/04/16 on nasal cannula, was back on BiPAP. At that time she was given 1 dose of Lasix and her symptoms improved. She continues to be on nocturnal BiPAP. Currently satting at 90% Cont to taper down oxygen as tolerated Pulmonology consult service on board. Previously there was a suspicion that patient had some pleural effusions and thoracentesis was considered however upon evaluation by IR there were not enough pleural effusions to be tapped Goal of FiO2 > 88% Arrhythmia On 12/06/16 patient had a 8 be run of V. tach and prior to that on 12/05/16 patient had a small run of SVT as shown on the teletypesetter monitor. Dr. Kirk, the storage manager on board for this patient evaluated the patient and recommended 25 mg metoprolol twice a day. Will continue her on the teletypesetter monitor and watch her closely Acute cholecystitis status post cholecystostomy tube 11/18/[address], no new complications. It continues to drain. Patient will be off antibiotics. Infectious disease consult service on board. Per general surgery, the tube will stay in for 6-8 weeks. Patient would need an outpatient follow up with Dr. Walls for removal of the cholecystostomy tube if she gets discharged before that. Acute kidney injury/ATN from sepsis/anasarca, low albumin * BEP daily, trend creatinine. * Cont Neupogen for a target hemoglobin of 10-11. * Continue sodium bicarbonate 1300 mg twice a day * Nephrology consult service on board Acute on chronic anemia : Patient had guaiac positive stools, she was evaluated by GI no plans of further intervention at this point. Patient is maintained on protonix and probiotics. Patient is tolerating heart healthy diet. 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 Occupational therapy is ordered for her arm excercises and nursing staff with get her out of bed to chair. Hx of DVT/PE s/p IVC filter: IV heparin was stopped due to melena and guaiac positive stools. We'll continue to monitor for now. Patient has an IVC filter placed in 2012 Hypothyroidism: c/w levothyroxine 50mcg daily HTN: Continue Procardia. DVT ppx: po eliquis on hold, ALPS for now, full code. Goals of care discussion with the family. There has been multiple discussions regarding code status, but patient always wanted to be full code. Problem List: 1. Acute diastolic CHF (congestive heart failure) 2. Hypothyroidism 3. Pulmonary hypertension, moderate to severe 4. CVA (cerebral vascular accident) 5. Chronic kidney disease Pain Ratin Pain Location: not applicable Pain Goal: Remain pain free Pain Plan: Avoid NSAIDs Tomorrow's Labs & Rationales: CBC, BEP, magnesium DVT/Prophylaxis: mechanical, pharmacological Consulting Request: Consulting Specialty: Neurology Consulting Physician: Dr. Rodriguez Reason for Consult: LILLIE, metabolic acidosis ROBIN METZ,[facility] 12/08/16 1225: Attending MD Review Statement Attending Statement Attending MD Statement: examined this patient, discuss w/resident/PA/ASSOCIATE SPA DIRECTOR, agreed w/resident/PA/ASSOCIATE SPA DIRECTOR, discussed with family, reviewed EMR data (avail), discussed with nursing, discussed with case mgmt, reviewed images, amended to note Attending Assessment/Plan: 81 year old female with multiple comorbidities, quadriplegic from spinal cord infarction, has been admitted on the floor for quite some time now. She is post cholecystostomy tube and is also being currently treated for acute hypoxemic respiratory failure. Cardiology and nephro on board. She also has runs of SVT in an SVT and is currently on low-dose beta jb. Pt is also on nocturnal Bipap for work of breathing and high flow oxygen with a goal of > 88%.Patient was seen and examined on the bedside and had a long discussion with her daughters about the patient's clinical condition. The plan is for [facility] evaluation for LTAC on Friday. Patient is currently stable with poor prognosis. Cardiology and pulmonary on board.
--- NOTE | 2016-12-08 10:41 | PN- Pulmonary ---
Subjective HPI/Critical Care Issues: pt seen and examined on bipap overnight getting changed this am hr 57 afebrile ROS limited with minimal communication, but awake and comfortable Objective Current Medications: Current Medications Sig/Kobi Start time Last Medication Dose Route Stop Time Status Admin Acetaminophen 650 MG Q6P PRN 11/14 1615 AC 11/26 PO 0949 Acetaminophen 1,000 MG Q6P PRN 11/14 1615 AC 11/21 IV 0854 Allopurinol 50 MG DAILY 11/15 1000 AC 12/07 PO 1012 Baclofen 2.5 MG BID 11/14 2200 AC 12/07 PO 2106 Cholecalciferol 1,000 IU DAILY 11/15 1000 AC 12/07 PO 1011 Epoetin Aldair 10,000 UNIT Q168 12/03 1100 AC 12/03 SC 1348 Ferrous Sulfate 325 MG BID 11/14 2200 AC 12/07 PO 2106 Gabapentin 100 MG DAILY 11/14 1600 AC 12/07 PO 1011 Heparin Sodium 5,000 UNIT Q8 12/05 1400 AC 12/08 (Porcine) SC 0606 Lactobacillus 1 CAP DAILY 11/15 1000 AC 12/07 Acidophilus PO 1011 Levothyroxine Sodium 0.075 MG DAILY AC 11/27 0700 AC 12/08 PO 0606 Magnesium Chloride 64 MG BID 12/08 1015 AC PO Magnesium Chloride 64 MG BID 12/07 1100 DC 12/07 PO 12/08 0000 2106 Melatonin 3 MG AT BEDTIME PRN 11/19 1545 AC PO Metoprolol Tartrate 25 MG BID 12/06 1200 AC 12/07 PO 2106 Multivitamins 1 TAB DAILY 11/15 1000 AC 12/07 Therapeutic PO 1011 Nifedipine 30 MG DAILY 12/05 1000 AC 12/07 PO 1011 Omeprazole 40 MG DAILY AC 11/20 0954 AC 12/08 PO 0606 Potassium Chloride 20 MEQ BID 12/07 2200 DC 12/07 PO 12/08 1001 2106 Potassium Chloride 10 MEQ ONCE ONE 12/07 1515 DC 12/07 IV 12/07 1516 1710 Potassium Chloride 10 MEQ ONCE ONE 12/07 1115 CAN IV 12/07 1116 Potassium Chloride 20 MEQ BID 12/07 1100 DC PO 12/07 2201 Senna/Docusate Sodium 2 TAB DAILY 12/04 1020 AC 12/07 PO 1011 Sodium Bicarbonate 1,300 MG DAILY 12/03 1005 AC 03/18 PO 1011 Vital Signs & I&O Last 24 Hrs of Vitals and I&O: Vital Signs Date Time Temp Pulse Resp B/P Pulse O2 O2 Flow FiO2 Ox Delivery Rate 12/08 0830 57 96 12/08 0800 BIPAP 60% 12/08 0750 97.3 57 20 140/68 96 BIPAP 12/08 0619 60 98 12/08 0328 59 95 12/08 0042 60 92 12/08 0008 97.6 63 20 142/70 89 12/08 0000 94 BIPAP 65% 12/07 2352 60 91 12/07 2349 60 89 12/07 2155 90 BIPAP 60% 12/07 2140 63 90 12/07 2106 67 132/62 12/07 1610 98.9 68 20 132/68 91 12/07 1600 Nasal 70% Cannula 12/07 1314 89 Nasal 70% Cannula Intake & Output 12/08 1600 12/08 0800 12/08 0000 Intake Total 240 580 Output Total 55 50 Balance 185 530 Intake, IV 100 Intake, Oral 240 480 Number 2 Bowel Movements Output, Other 55 50 Exam Other Physical Findings: gen awake, arousable heent ncat cvs s1, s2 lungs rare rhonchi anterior chest abd soft, bs+ ext mild edema neuro paresis chronic Results Last 24 Hrs of Lab Results: Laboratory Tests 12/08/16 0655: Anion Gap 5, Estimated GFR 33 L, BUN/Creatinine Ratio 13.3, Magnesium 1.7 12/07/16 1300: Anion Gap 7, Estimated GFR 36 L, BUN/Creatinine Ratio 15.7, Magnesium 1.6 Impression/Plan Impression/Plan Impression/Plan: Impression 81 year old woman - s/p cholecystostomy tube for acute cholecystitis - hypoxemic respiratory failure requiring bipap use - metabolic acidosis - LILLIE - acute on chronic anemia with blood loss - 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
--- NOTE | 2016-12-08 12:26 | NUR ---
PT DROWSY BUT WAKES EASILY. EATING WELL. O2 VIA HIGH FLOW. DR. BARNES IN, FAMILY PRESENT AND UPDATES GIVEN. WILL HOLD OFF OOB FOR TODAY DUE TO HIGH O2 DEMANDS.
[2016-12-08 17:18] VITALS: BP 138/76
[2016-12-08 23:45] VITALS: BP 154/64
--- NOTE | 2016-12-09 07:31 | PN- Housestaff ---
PATRICA LOPEZ 12/09/16 0731: Subjective Follow-up For: 1. Acute cholecystitis status post cholecystostomy tube 2. Acute hypoxic hypercarbic respiratory failure 3. LILLIE secondary to ATN from sepsis 4. Anasarca 5. Anemia of chronic inflammation secondary to kidney disease 6. History of recurrent PEs, DVTs, status post IVC filter 7. History of hypothyroidism 8. 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 History of hypertension 10. Overall poor prognosis and poor functional status Tele-Events Since Last Visit: Patient had a 33 beat run of V tach Subjective: Patient seen and examined. She was on BiPAP overnight and she is on high flow this morning. She does not have any other complaints. Over the weekend she had some episodes of arrhythmia and she is continued on 25 mg by mouth twice a day metoprolol. Her and request is on hold for GI bleed however she has an IVC filter in place. Her CBC done today does not show any drop in hemoglobin it continues to be 9.6. Her creatinine remained stable at 1.3. Her vitals remained stable. Review of Systems Constitutional: Reports: see HPI. Objective Last 24 Hrs of Vital Signs/I&O Vital Signs Date Time Temp Pulse Resp B/P Pulse O2 O2 Flow FiO2 Ox Delivery Rate 12/09 0954 82 150/66 12/09 0954 82 150/66 12/09 0819 96.5 82 24 150/66 91 BIPAP 12/09 0800 91 Nasal 55% Cannula 12/09 0440 58 93 12/09 0326 61 97 12/09 0035 62 98 12/09 0000 BIPAP 60% 12/08 2345 97.5 66 26 154/64 95 Nasal Cannula 12/08 2235 85 93 12/08 2133 72 118/62 12/08 1915 90 Nasal 60% Cannula 12/08 1718 97.8 62 20 138/76 89 12/08 1600 94 Nasal 55% Cannula 12/08 1136 91 Nasal 55% Cannula Intake & Output 12/09 1600 12/09 0800 12/09 0000 Intake Total 250 450 Output Total 55 40 Balance 195 410 Intake, IV 0 0 Intake, Oral 250 450 Number 0 3 Bowel Movements Output, Other 55 40 Physical Exam General Appearance: Alert, Cooperative, awake Skin: No Rashes, No Breakdown HEENT: Atraumatic Neck: Supple Cardiovascular: Normal S1, Normal S2 Lungs: clearon examination from auscultation on the anterior aspect of the chest patient does not want to move Abdomen: Soft, No Tenderness Neurological: bilateral lower extremity paraplegia Extremities: No Edema, Normal Pulses Current Medications: Current Medications Sig/Kobi Start time Last Medication Dose Route Stop Time Status Admin Acetaminophen 650 MG Q6P PRN 11/14 1615 AC 11/26 PO 0949 Acetaminophen 1,000 MG Q6P PRN 11/14 1615 AC 11/21 IV 0854 Allopurinol 50 MG DAILY 11/15 1000 AC 12/09 PO 0955 Baclofen 2.5 MG BID 11/14 2200 AC 12/09 PO 0955 Cholecalciferol 1,000 IU DAILY 11/15 1000 AC 12/09 PO 0954 Epoetin Aldair 10,000 UNIT Q168 12/03 1100 AC 12/03 SC 1348 Ferrous Sulfate 325 MG BID 11/14 2200 AC 12/09 PO 0954 Gabapentin 100 MG DAILY 11/14 1600 AC 12/09 PO 0954 Heparin Sodium 5,000 UNIT Q8 12/05 1400 AC 12/09 (Porcine) SC 0655 Lactobacillus 1 CAP DAILY 11/15 1000 AC 12/09 Acidophilus PO 0954 Levothyroxine Sodium 0.075 MG DAILY AC 11/27 0700 AC 12/09 PO 0655 Magnesium Chloride 64 MG BID 12/08 1015 AC 12/09 PO 0954 Melatonin 3 MG AT BEDTIME PRN 11/19 1545 AC PO Metoprolol Tartrate 25 MG BID 12/06 1200 AC 12/09 PO 0954 Multivitamins 1 TAB DAILY 11/15 1000 AC 12/09 Therapeutic PO 0954 Nifedipine 30 MG DAILY 12/05 1000 AC 12/09 PO 0954 Omeprazole 40 MG DAILY AC 11/20 0954 AC 12/09 PO 0655 Senna/Docusate Sodium 2 TAB DAILY 12/04 1020 AC 12/09 PO 0954 Sodium Bicarbonate 1,300 MG DAILY 12/03 1005 AC 12/09 PO 0954 Last 24 Hrs of Lab/Jun Results Last 24 Hrs of Labs/Mics: Laboratory Tests 12/09/16 0730: Anion Gap 7, Estimated GFR 39 L, BUN/Creatinine Ratio 15.4, Magnesium 1.7, CBC w Diff MAN DIFF ORDERED, RBC 3.60 L, MCV 84.0, MCH 26.6 L, RDW 19.9 H, MPV 10.9 H, Segmented Neutrophils 89 H, Band Neutrophils 2, Lymphocytes 7 L, Monocytes 1 L, Eosinophils 1, Nucleated RBCs 11 H, Platelet Estimate ADEQUATE, Hypochromic-Microcytic 1+, Poikilocytosis 2+, Anisocytosis 2+, Target Cells 2+, PUBS MCHC 31.7 L Assessment/Plan Assessment: Patient is 81 yo female with pmh of HTN, hypothyroidism, HLD, CKD, quadriplegia s/p spinal cord stroke, DVT/PE on eliquis currently on hold, Renal artery stenosis s/p renal artery stenting, who is a resident at [facility] was brought in with fever and possible UTI. Now status post cholecystectomy tube. Most recent chest x-ray from 12/02/2015 shows persistent bibasilar opacification and right greater than left pleural effusions Echocardiogram showed hyperdynamic EF of 80% with impaired LV relaxation and underfilled left ventricle and mildly hypokinetic right ventricle. Problem list 1. Acute cholecystitis status post cholecystostomy tube 2. Acute hypoxic hypercarbic respiratory failure 3. LILLIE secondary to ATN from sepsis 4. Anasarca 5. Anemia of chronic inflammation secondary to kidney disease 6. History of recurrent PEs, DVTs, status post IVC filter 7. History of hypothyroidism 8. 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 History of hypertension 10. Overall poor prognosis and poor functional status Plan - Plan is for [place] evaluation for LTAC on Friday. Acute hypoxic respiratory failure Patient desaturated to 87 on 12/04/16 on nasal cannula, was back on BiPAP. At that time she was given 1 dose of Lasix and her symptoms improved. She continues to be on nocturnal BiPAP. Patient is currently saturating 92% on high flow oxygen plan is to taper Pulmonology consult service on board. Previously there was a suspicion that patient had some pleural effusions and thoracentesis was considered however upon evaluation by IR there were not enough pleural effusions to be tapped Goal of FiO2 > 88% Arrhythmia On 12/06/16 patient had a 8 be run of V. tach and prior to that on 12/05/16 patient had a small run of SVT as shown on the internal audit senior manager. Dr. Kirk, the assistant professor of geography on board for this patient evaluated the patient and recommended 25 mg metoprolol twice a day. Will continue her on the internal audit senior manager and watch her closely Acute cholecystitis status post cholecystostomy tube 11/18/[address], no new complications. It continues to drain. Patient will be off antibiotics. Infectious disease consult service on board. Per general surgery, the tube will stay in for 6-8 weeks. Patient would need an outpatient follow up with Dr. Walls for removal of the cholecystostomy tube if she gets discharged before that. Acute kidney injury/ATN from sepsis/anasarca, low albumin Patient's creatinine is stable at 1.3 - 1.4. This looks like her new baseline Cont Neupogen for a target hemoglobin of 10-11. Continue sodium bicarbonate 1300 mg twice a day as it is shown to be of benefit in chronic kidney disease Nephrology consult service on port Acute on chronic anemia : Patient had guaiac positive stools, she was evaluated by GI no plans of further intervention at this point. Patient is maintained on protonix and probiotics. Patient is tolerating heart healthy diet. 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 Occupational therapy is ordered for her arm excercises and nursing staff with get her out of bed to chair. Hx of DVT/PE s/p IVC filter: IV heparin was stopped due to melena and guaiac positive stools. We'll continue to monitor for now. Patient has an IVC filter placed in 2012 Hypothyroidism: c/w levothyroxine 50mcg daily HTN: Continue Procardia. Blood pressure stable at 150/66. DVT ppx: po eliquis on hold, ALPS for now, full code. Goals of care discussion with the family. There has been multiple discussions regarding code status, but patient always wanted to be full code. Problem List: 1. Pneumonia Pain Ratin Pain Location: n/a Pain Goal: Pain 4 or less Pain Plan: Tylenol when necessary for pain Tomorrow's Labs & Rationales: none Consulting Request: Consulting Specialty: Neurology Consulting Physician: Dr. Rodriguez Reason for Consult: LILLIE, metabolic acidosis JENNIFER METZ,[facility] 12/09/16 1330: Attending Review Statement Attending Statement Attending MD Statement: examined this patient, discuss w/resident/PA/INDUSTRIAL TRACTOR DRIVER, agreed w/resident/PA/INDUSTRIAL TRACTOR DRIVER, reviewed EMR data (avail) Attending Assessment/Plan: Patient appears comfortable despite increasing oxygen requirements. She is experiencing no discomfort at this time. Vitals stable, labs reviewed. Lung exam shows mild coarse breath sounds bilaterally. Will continue high-flow oxygen, nightly BiPAP, follow up CXR and pulmonary recommendations, continue home medications, DVT PPx
[2016-12-09 08:05] LABS: HEMATOCRIT 30.2 % (37-47)
[2016-12-09 08:19] VITALS: BP 150/66
[2016-12-09 08:54] LABS: MEAN CORPUSCULAR HGB 26.6 PG (27.0-31.0); MEAN CORPUSCULAR HGB CONC 31.7 G/DL (33.0-37.0); MEAN PLATELET VOLUME 10.9 FL (7.4-10.4); PLATELET COUNT 229 /CUMM (130-400); RBC DISTRIBUTION WIDTH 19.9 % (11.5-14.5)
--- NOTE | 2016-12-09 11:37 | NUR ---
11:18 PT HAD A 33 BEAT RUN OF V-TACH. VSS, BP 146/60, HR 64, RR 26, O2 91% ON HIGH FLOW 55%. PT HAS NO C/O CP. 11:25 PATRICA WIN. WILL CONTINUE TO MONITOR PT.
[2016-12-09 11:40] VITALS: BP 146/60
--- NOTE | 2016-12-09 11:59 | PN- Pulmonary ---
Subjective HPI/Critical Care Issues: pt seen and examined on high flow some dyspnea will get cxr no n/v/d/c Objective Current Medications: Current Medications Sig/Kobi Start time Last Medication Dose Route Stop Time Status Admin Acetaminophen 650 MG Q6P PRN 11/14 1615 AC 11/26 PO 0949 Acetaminophen 1,000 MG Q6P PRN 11/14 1615 AC 11/21 IV 0854 Allopurinol 50 MG DAILY 11/15 1000 AC 12/09 PO 0955 Baclofen 2.5 MG BID 11/14 2200 AC 12/09 PO 0955 Cholecalciferol 1,000 IU DAILY 11/15 1000 AC 12/09 PO 0954 Epoetin Aldair 10,000 UNIT Q168 12/03 1100 AC 12/03 SC 1348 Ferrous Sulfate 325 MG BID 11/14 2200 AC 12/09 PO 0954 Gabapentin 100 MG DAILY 11/14 1600 AC 12/09 PO 0954 Heparin Sodium 5,000 UNIT Q8 12/05 1400 AC 12/09 (Porcine) SC 0655 Lactobacillus 1 CAP DAILY 11/15 1000 AC 12/09 Acidophilus PO 0954 Levothyroxine Sodium 0.075 MG DAILY AC 11/27 0700 AC 12/09 PO 0655 Magnesium Chloride 64 MG BID 12/08 1015 AC 12/09 PO 0954 Melatonin 3 MG AT BEDTIME PRN 11/19 1545 AC PO Metoprolol Tartrate 25 MG BID 12/06 1200 AC 12/09 PO 0954 Multivitamins 1 TAB DAILY 11/15 1000 AC 12/09 Therapeutic PO 0954 Nifedipine 30 MG DAILY 12/05 1000 AC 12/09 PO 0954 Omeprazole 40 MG DAILY AC 11/20 0954 AC 12/09 PO 0655 Senna/Docusate Sodium 2 TAB DAILY 12/04 1020 AC 12/09 PO 0954 Sodium Bicarbonate 1,300 MG DAILY 12/03 1005 AC 12/09 PO 0954 Vital Signs & I&O Last 24 Hrs of Vitals and I&O: Vital Signs Date Time Temp Pulse Resp B/P Pulse O2 O2 Flow FiO2 Ox Delivery Rate 12/09 1140 64 26 146/60 91 Nasal 55% Cannula 12/09 0954 82 150/66 12/09 0954 82 150/66 12/09 0819 96.5 82 24 150/66 91 BIPAP 12/09 0800 91 Nasal 55% Cannula 12/09 0440 58 93 12/09 0326 61 97 12/09 0035 62 98 12/09 0000 BIPAP 60% 12/08 2345 97.5 66 26 154/64 95 Nasal Cannula 12/08 2235 85 93 12/08 2133 72 118/62 12/08 1915 90 Nasal 60% Cannula 12/08 1718 97.8 62 20 138/76 89 12/08 1600 94 Nasal 55% Cannula Intake & Output 12/09 1600 12/09 0800 12/09 0000 Intake Total 250 450 Output Total 55 40 Balance 195 410 Intake, IV 0 0 Intake, Oral 250 450 Number 0 3 Bowel Movements Output, Other 55 40 Exam Other Physical Findings: gen awake, arousable heent ncat cvs s1, s2 lungs rare rhonchi anterior chest abd soft, bs+ ext mild edema neuro paresis chronic Results Last 24 Hrs of Lab Results: Laboratory Tests 12/09/16 0730: Anion Gap 7, Estimated GFR 39 L, BUN/Creatinine Ratio 15.4, Magnesium 1.7, CBC w Diff MAN DIFF ORDERED, RBC 3.60 L, MCV 84.0, MCH 26.6 L, RDW 19.9 H, MPV 10.9 H, Segmented Neutrophils 89 H, Band Neutrophils 2, Lymphocytes 7 L, Monocytes 1 L, Eosinophils 1, Nucleated RBCs 11 H, Platelet Estimate ADEQUATE, Hypochromic-Microcytic 1+, Poikilocytosis 2+, Anisocytosis 2+, Target Cells 2+, PUBS MCHC 31.7 L Impression/Plan Impression/Plan Impression/Plan: Impression 81 year old woman - s/p cholecystostomy tube for acute cholecystitis - hypoxemic respiratory failure requiring bipap use - metabolic acidosis - LILLIE - acute on chronic anemia with blood loss - 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
--- NOTE | 2016-12-09 15:00 | RADIOLOGY REPORT ---
EXAMINATION: XR PORTABLE CHEST CLINICAL INFORMATION: Pulmonary consolidation./Effusion. COMPARISON: Chest 12/06/2016. TECHNIQUE: Portable AP 35 degree view of the chest was obtained. FINDINGS: There is loss of right lung volume with patchy infiltrates right upper lobe and right lower lobe. The left lung is expanded with with base haziness. It is unchanged. Heart size enlarged with normal pulmonary vascularity. IMPRESSION: Right upper lobe and right lower lobe infiltrates. The right upper lobe infiltrate appears new. Mild patchy haziness left lung base is stable. Cannot exclude underlying consolidation. Heart size is enlarged.
[2016-12-09 15:54] VITALS: BP 128/60
--- NOTE | 2016-12-09 17:45 | PN- Cardiology ---
Subjective Subjective: * Resting comfortably. No complaints. No lightheadedness or palpitations. * sinus rhythm with episode of sustained VT * Magnesium and potassium are in the normal range. * WBC count is now in the normal range at 7.0 * creatinine stable at 1.3 Objective Vital Signs and I&Os Vital Signs Date Time Temp Pulse Resp B/P Pulse O2 O2 Flow FiO2 Ox Delivery Rate 12/09 1554 97.6 67 18 128/60 90 Nasal Cannula 12/09 1545 90 Nasal 55% Cannula 12/09 1443 91 Nasal 55% Cannula 12/09 1140 64 26 146/60 91 Nasal 55% Cannula 12/09 0954 82 150/66 12/09 0954 82 150/66 12/09 0819 96.5 82 24 150/66 91 BIPAP 12/09 0800 91 Nasal 55% Cannula 12/09 0440 58 93 12/09 0326 61 97 12/09 0035 62 98 12/09 0000 BIPAP 60% 12/08 2345 97.5 66 26 154/64 95 Nasal Cannula 12/08 2235 85 93 12/08 2133 72 118/62 12/08 1915 90 Nasal 60% Cannula Intake & Output 12/09 1600 12/09 0800 12/09 0000 12/08 1600 12/08 0800 12/08 0000 Intake Total 480 250 450 300 240 580 Output Total 30 55 40 600 55 50 Balance 450 195 410 -300 185 530 Intake, IV 0 0 100 Intake, Oral 480 250 450 300 240 480 Number 0 3 3 2 Bowel Movements Output, Other 30 55 40 55 50 Output, Urine 600 Physical Exam: General: WD/ WN female in NAD; alert and oriented x 3 Neck: no JVD Heart: RRR w/o murmur Lungs: clear bilaterally Extremities: no edema Assessment/Plan Assessment/Plan * This patient has had some NSVT in the setting of a normal EF. This may be related to underlyiny coronary artery disease. Due to the patient's co- morbidities we will try and treat this medically. Begin Amiodarone 400mg PO BID. Continue metoprolol at 25mg PO BID. * Renal function and WBC are improved. * H/H has improved with improvement in her renal function and with the help of epogen. She is protected by the IVC filter so we will hold off on anticoagulation with Eliquis. Continue telemetry? Yes
[2016-12-10 00:13] VITALS: BP 142/60
--- NOTE | 2016-12-10 08:05 | PN- Housestaff ---
PATRICA LOPEZ 12/10/16 0759: Subjective Follow-up For: 1. Acute cholecystitis status post cholecystostomy tube 2. Acute hypoxic hypercarbic respiratory failure 3. LILLIE secondary to ATN from sepsis 4. Anasarca 5. Anemia of chronic inflammation secondary to kidney disease 6. History of recurrent PEs, DVTs, status post IVC filter 7. History of hypothyroidism 8. 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 History of hypertension 10. Overall poor prognosis and poor functional status Subjective: Patient was resting comfortable on bed using BIPAP this morning. Patient had a 33 beats run of V. tach yesterday, cardiology was made aware. Patient was started on 400 mg of amiodarone twice a day along with 25 mg of metoprolol by mouth twice a day. Patient remains off anticoagulation. Patient had a repeat chest x-ray done today which showed new infiltrates however she continues to be afebrile. She is monitored off antibiotics. Patient required BiPAP overnight, her vitals look stable this morning. No labs were repeated. Review of Systems Constitutional: Reports: see HPI. Objective Last 24 Hrs of Vital Signs/I&O Vital Signs Date Time Temp Pulse Resp B/P Pulse O2 O2 Flow FiO2 Ox Delivery Rate 12/10 0040 72 92 12/10 0013 98.2 69 20 142/60 96 BIPAP 12/10 0000 BIPAP 60% 12/09 2229 74 95 12/09 2039 75 128/62 12/09 2038 75 128/62 12/09 1934 91 Nasal 55% Cannula 12/09 1554 97.6 67 18 128/60 90 Nasal Cannula 12/09 1545 90 Nasal 55% Cannula 12/09 1443 91 Nasal 55% Cannula 12/09 1140 64 26 146/60 91 Nasal 55% Cannula 12/09 0954 82 150/66 12/09 0954 82 150/66 12/09 0819 96.5 82 24 150/66 91 BIPAP Intake & Output 12/10 1600 12/10 0800 12/10 0000 Intake Total 120 540 Output Total 60 20 Balance 60 520 Intake, Oral 120 540 Number 1 Bowel Movements Output, Other 60 20 Physical Exam General Appearance: Alert, Cooperative, awake Skin: No Rashes, No Breakdown HEENT: Atraumatic Neck: Supple Cardiovascular: Normal S1, Normal S2 Lungs: dec breath sounds b/l Abdomen: Soft, No Tenderness Neurological: Normal Speech Extremities: No Edema, Normal Pulses Current Medications: Current Medications Sig/Kobi Start time Last Medication Dose Route Stop Time Status Admin Acetaminophen 650 MG Q6P PRN 11/14 1615 AC 11/26 PO 0949 Acetaminophen 1,000 MG Q6P PRN 11/14 1615 AC 11/21 IV 0854 Allopurinol 50 MG DAILY 11/15 1000 AC 12/09 PO 0955 Amiodarone HCl 400 MG BID 12/09 2200 AC 12/09 PO 203 Baclofen 2.5 MG BID 11/14 2200 AC 12/09 PO 2039 Cholecalciferol 1,000 IU DAILY 11/15 1000 AC 12/09 PO 0954 Epoetin Aldair 10,000 UNIT Q168 12/03 1100 AC 12/03 SC 1348 Ferrous Sulfate 325 MG BID 11/14 2200 AC 12/09 PO 2039 Gabapentin 100 MG DAILY 11/14 1600 AC 12/09 PO 0954 Heparin Sodium 5,000 UNIT Q8 12/05 1400 AC 12/10 (Porcine) SC 0547 Lactobacillus 1 CAP DAILY 11/15 1000 AC 12/09 Acidophilus PO 0954 Levothyroxine Sodium 0.075 MG DAILY AC 11/27 0700 AC 12/10 PO 0547 Magnesium Chloride 64 MG BID 12/08 1015 AC 12/09 PO 2039 Melatonin 3 MG AT BEDTIME PRN 11/19 1545 AC PO Metoprolol Tartrate 25 MG BID 12/06 1200 AC 12/09 PO 2039 Multivitamins 1 TAB DAILY 11/15 1000 AC 12/09 Therapeutic PO 0954 Nifedipine 30 MG DAILY 12/05 1000 AC 12/09 PO 0954 Omeprazole 40 MG DAILY AC 11/20 0954 AC 12/10 PO 0547 Senna/Docusate Sodium 2 TAB DAILY 12/04 1020 AC 12/09 PO 0954 Sodium Bicarbonate 1,300 MG DAILY 12/03 1005 AC 12/09 PO 0954 Assessment/Plan Assessment: Patient is 81 yo female with pmh of HTN, hypothyroidism, HLD, CKD, quadriplegia s/p spinal cord stroke, DVT/PE on eliquis currently on hold, Renal artery stenosis s/p renal artery stenting, who is a resident at [facility] was brought in with fever and possible UTI. Now status post cholecystectomy tube. Most recent chest x-ray from 12/02/2015 shows persistent bibasilar opacification and right greater than left pleural effusions Echocardiogram showed hyperdynamic EF of 80% with impaired LV relaxation and underfilled left ventricle and mildly hypokinetic right ventricle. Problem list 1. Acute cholecystitis status post cholecystostomy tube 2. Acute hypoxic hypercarbic respiratory failure 3. LILLIE secondary to ATN from sepsis 4. Anasarca 5. Anemia of chronic inflammation secondary to kidney disease 6. History of recurrent PEs, DVTs, status post IVC filter 7. History of hypothyroidism 8. 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 History of hypertension 10. Overall poor prognosis and poor functional status Plan - Plan is for [place] evaluation for LTAC on Friday. Acute hypoxic respiratory failure Patient desaturated to 87 on 12/04/16 on nasal cannula, was back on BiPAP. At that time she was given 1 dose of Lasix and her symptoms improved. She continues to be on nocturnal BiPAP. Patient is currently saturating 92% on high flow oxygen plan is to taper Pulmonology consult service on board. Previously there was a suspicion that patient had some pleural effusions and thoracentesis was considered however upon evaluation by IR there were not enough pleural effusions to be tapped Goal of O2 saturation > 88% Patient was short of breath yesterday, a repeat chest x-ray revealed new infiltrates however she continues to remain afebrile and does not have any evidence of leukocytosis we'll continue to monitor off antibiotics Arrhythmia On 12/06/16 patient had a 8 be run of V. tach and prior to that on 12/05/16 patient had a small run of SVT as shown on the hook puller. Dr. Kirk, the interventional radiology technologist on board for this patient evaluated the patient and recommended 25 mg metoprolol twice a day. On 12/09/16 patient had another 33 beat run of V. tach probably due to her underlying coronary artery disease, she is started on a mood on 400 mg twice a day per Dr. Kirk's recommendation. We'll continue to monitor Acute cholecystitis status post cholecystostomy tube 11/18/[address] in [address], no new complications. It continues to drain. Patient will be off antibiotics. Infectious disease consult service on board. Per general surgery, the tube will stay in for 6-8 weeks. Patient would need an outpatient follow up with Dr. Walls for removal of the cholecystostomy tube if she gets discharged before that. Acute kidney injury/ATN from sepsis/anasarca, low albumin Patient's creatinine is stable at 1.3 - 1.4. This looks like her new baseline Cont Neupogen for a target hemoglobin of 10-11. Continue sodium bicarbonate 1300 mg twice a day as it is shown to be of benefit in chronic kidney disease Nephrology consult service on board Acute on chronic anemia : Patient had guaiac positive stools, she was evaluated by GI no plans of further intervention at this point. Patient is maintained on protonix and probiotics. Patient is tolerating heart healthy diet. 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 Occupational therapy is ordered for her arm excercises and nursing staff with get her out of bed to chair. Hx of DVT/PE s/p IVC filter: IV heparin was stopped due to melena and guaiac positive stools. We'll continue to monitor for now. Patient has an IVC filter placed in 2012 Hypothyroidism: c/w levothyroxine 50mcg daily HTN: Continue Procardia. Blood pressure stable at 150/66. DVT ppx: po eliquis on hold, ALPS for now, full code. Goals of care discussion with the family. There has been multiple discussions regarding code status, but patient always wanted to be full code. Problem List: 1. Hypoxia Pain Ratin Pain Location: n/a Pain Goal: Pain 4 or less Pain Plan: tylenol prn for pain Tomorrow's Labs & Rationales: none Consulting Request: Consulting Specialty: Neurology Consulting Physician: Dr. Rodriguez Reason for Consult: LILLIE, metabolic acidosis [facility] 12/10/16 1109: Attending MD Review Statement Attending Statement Attending MD Statement: examined this patient, discuss w/resident/PA/RN OR LPN, agreed w/resident/PA/RN OR LPN, reviewed EMR data (avail) Attending Assessment/Plan: Patient appears comfortable despite increasing oxygen requirements. She is experiencing no discomfort at this time. Vitals stable, labs reviewed. Lung exam shows mild coarse breath sounds bilaterally. Will continue high-flow oxygen, nightly BiPAP, follow up CXR and pulmonary recommendations, continue home medications, DVT PPx
[2016-12-10 08:30] VITALS: BP 135/66
--- NOTE | 2016-12-10 09:24 | PN- Pulmonary ---
Subjective HPI/Critical Care Issues: pt seen and examined overnight used bipap afebrile hemodynamically stable CXR with new RUL opacification, stable left lung base opacity no leukocytosis Objective Current Medications: Current Medications Sig/Kobi Start time Last Medication Dose Route Stop Time Status Admin Acetaminophen 650 MG Q6P PRN 11/14 1615 AC 11/26 PO 0949 Acetaminophen 1,000 MG Q6P PRN 11/14 1615 AC 11/21 IV 0854 Allopurinol 50 MG DAILY 11/15 1000 AC 12/09 PO 0955 Amiodarone HCl 400 MG BID 12/09 2200 AC 12/09 PO 2038 Baclofen 2.5 MG BID 11/14 2200 AC 12/09 PO 2039 Cholecalciferol 1,000 IU DAILY 11/15 1000 AC 12/09 PO 0954 Epoetin Aldair 10,000 UNIT Q168 12/03 1100 AC 12/03 SC 1348 Ferrous Sulfate 325 MG BID 11/14 2200 AC 12/09 PO 2039 Gabapentin 100 MG DAILY 11/14 1600 AC 12/09 PO 0954 Heparin Sodium 5,000 UNIT Q8 12/05 1400 AC 12/10 (Porcine) SC 0547 Lactobacillus 1 CAP DAILY 11/15 1000 AC 12/09 Acidophilus PO 0954 Levothyroxine Sodium 0.075 MG DAILY AC 11/27 0700 AC 12/10 PO 0547 Magnesium Chloride 64 MG BID 12/08 1015 AC 12/09 PO 2039 Melatonin 3 MG AT BEDTIME PRN 11/19 1545 AC PO Metoprolol Tartrate 25 MG BID 12/06 1200 AC 12/09 PO 2039 Multivitamins 1 TAB DAILY 11/15 1000 AC 12/09 Therapeutic PO 0954 Nifedipine 30 MG DAILY 12/05 1000 AC 12/09 PO 0954 Omeprazole 40 MG DAILY AC 11/20 0954 AC 12/10 PO 0547 Senna/Docusate Sodium 2 TAB DAILY 12/04 1020 AC 12/09 PO 0954 Sodium Bicarbonate 1,300 MG DAILY 12/03 1005 AC 12/09 PO 0954 Vital Signs & I&O Last 24 Hrs of Vitals and I&O: Vital Signs Date Time Temp Pulse Resp B/P Pulse O2 O2 Flow FiO2 Ox Delivery Rate 12/10 0830 98.0 62 23 135/66 96 BIPAP 60% 12/10 0040 72 92 12/10 0013 98.2 69 20 142/60 96 BIPAP 12/10 0000 BIPAP 60% 12/09 2229 74 95 12/09 2038 75 128/62 12/098 75 128/62 12/09 1934 91 Nasal 55% Cannula 12/09 1554 97.6 67 18 128/60 90 Nasal Cannula 12/09 1545 90 Nasal 55% Cannula 12/09 1443 91 Nasal 55% Cannula 12/09 1140 64 26 146/60 91 Nasal 55% Cannula 12/09 0954 82 150/66 12/09 0954 82 150/66 Intake & Output 12/10 1600 12/10 0800 12/10 0000 Intake Total 120 540 Output Total 60 20 Balance 60 520 Intake, Oral 120 540 Number 1 Bowel Movements Output, Other 60 20 Exam Other Physical Findings: gen awake, arousable heent ncat cvs s1, s2 lungs rare rhonchi anterior chest abd soft, bs+ ext mild edema neuro paresis chronic Impression/Plan Impression/Plan Impression/Plan: Impression 81 year old woman - s/p cholecystostomy tube for acute cholecystitis - hypoxemic respiratory failure requiring bipap use - metabolic acidosis - LILLIE - acute on chronic anemia with blood loss - 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
[2016-12-10 15:47] VITALS: BP 142/60
[2016-12-10 22:00] VITALS: BP 130/70
--- NOTE | 2016-12-11 07:25 | PN- Housestaff ---
PATRICA LOPEZ 12/11/16 0725: Subjective Follow-up For: 1. Acute cholecystitis status post cholecystostomy tube 2. Acute hypoxic hypercarbic respiratory failure 3. LILLIE secondary to ATN from sepsis Subjective: Patient seen and examined. She appears to be doing well. She continues on BiPAP overnight and on high flow during the day. She was saturating 93% on 50% high flow this morning. Patient does not have any new complaints. Review of Systems Constitutional: Reports: see HPI. Objective Last 24 Hrs of Vital Signs/I&O Vital Signs Date Time Temp Pulse Resp B/P Pulse O2 O2 Flow FiO2 Ox Delivery Rate 12/11 0847 97 Nasal 55% Cannula 12/11 0846 53 97 12/11 0800 98.8 60 20 120/70 97 BIPAP 12/11 0453 56 98 12/11 0000 BIPAP 12/10 2233 66 92 12/10 2220 64 130/80 12/10 2219 64 130/80 12/10 2200 98.2 65 20 130/70 95 BIPAP 12/10 1926 92 Nasal 55% Cannula 12/10 1607 89 Nasal 55% Cannula 12/10 1547 98.7 69 20 142/60 90 Nasal Cannula Intake & Output 12/11 1600 12/11 0800 12/11 0000 Intake Total 100 200 Output Total Balance 100 200 Intake, Oral 100 200 Number 1 Bowel Movements Physical Exam General Appearance: Alert, No Acute Distress, awake, on high flow oxygen Skin: No Rashes HEENT: Atraumatic Neck: Supple Cardiovascular: Normal S1, Normal S2 Lungs: Normal Air Movement Abdomen: Soft, No Tenderness Neurological: Normal Speech, Normal Tone Extremities: No Edema Current Medications: Current Medications Sig/Kobi Start time Last Medication Dose Route Stop Time Status Admin Acetaminophen 650 MG Q6P PRN 11/14 1615 AC 11/26 PO 0949 Acetaminophen 1,000 MG Q6P PRN 11/14 1615 AC 11/21 IV 0854 Allopurinol 50 MG DAILY 11/15 1000 AC 12/11 PO 1113 Amiodarone HCl 400 MG BID 12/09 2200 AC 12/11 PO 1114 Baclofen 2.5 MG BID 11/14 220 AC 12/11 PO 1114 Cholecalciferol 1,000 IU DAILY 11/15 1000 AC 12/11 PO 1113 Epoetin Aldair 10,000 UNIT Q168 12/03 1100 AC 12/10 SC 1443 Ferrous Sulfate 325 MG BID 11/14 2200 AC 12/11 PO 1114 Gabapentin 100 MG DAILY 11/14 1600 AC 12/11 PO 1114 Heparin Sodium 5,000 UNIT Q8 12/05 1400 AC 12/11 (Porcine) SC 0600 Lactobacillus 1 CAP DAILY 11/15 1000 AC 12/11 Acidophilus PO 1113 Levothyroxine Sodium 0.075 MG DAILY AC 11/27 0700 AC 12/11 PO 0723 Magnesium Chloride 64 MG BID 12/08 1015 AC 12/11 PO 1113 Melatonin 3 MG AT BEDTIME PRN 11/19 1545 AC PO Metoprolol Tartrate 25 MG BID 12/06 1200 AC 12/11 PO 1114 Multivitamins 1 TAB DAILY 11/15 1000 AC 12/11 Therapeutic PO 1113 Nifedipine 30 MG DAILY 12/05 1000 AC 12/11 PO 1114 Omeprazole 40 MG DAILY AC 11/20 0954 AC 12/11 PO 0726 Patient Medication 1 ED .[facility] 12/10 1357 CO Teaching ED 12/10 1358 Senna/Docusate Sodium 2 TAB DAILY 12/04 1020 AC 12/11 PO 1113 Sodium Bicarbonate 1,300 MG DAILY 12/03 1005 AC 12/11 PO 1113 Assessment/Plan Assessment: Patient is 81 yo female with pmh of HTN, hypothyroidism, HLD, CKD, quadriplegia s/p spinal cord stroke, DVT/PE on eliquis currently on hold, Renal artery stenosis s/p renal artery stenting, who is a resident at [facility] was brought in with fever and possible UTI. Now status post cholecystectomy tube. Most recent chest x-ray from 12/02/2015 shows persistent bibasilar opacification and right greater than left pleural effusions Echocardiogram showed hyperdynamic EF of 80% with impaired LV relaxation and underfilled left ventricle and mildly hypokinetic right ventricle. Problem list 1. Acute cholecystitis status post cholecystostomy tube 2. Acute hypoxic hypercarbic respiratory failure 3. LILLIE secondary to ATN from sepsis 4. Anasarca 5. Anemia of chronic inflammation secondary to kidney disease 6. History of recurrent PEs, DVTs, status post IVC filter 7. History of hypothyroidism 8. 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 History of hypertension 10. Overall poor prognosis and poor functional status Plan - Plan is for [place] evaluation for LTAC on Friday. Acute hypoxic respiratory failure Patient desaturated to 87 on 12/04/16 on nasal cannula, was back on BiPAP. At that time she was given 1 dose of Lasix and her symptoms improved. She continues to be on nocturnal BiPAP. Patient is currently saturating 92% on high flow oxygen plan is to taper Pulmonology consult service on board. Previously there was a suspicion that patient had some pleural effusions and thoracentesis was considered however upon evaluation by IR there were not enough pleural effusions to be tapped Goal of O2 saturation > 88% Patient was short of breath yesterday, a repeat chest x-ray revealed new infiltrates however she continues to remain afebrile and does not have any evidence of leukocytosis we'll continue to monitor off antibiotics Arrhythmia On 12/06/16 patient had a 8 be run of V. tach and prior to that on 12/05/16 patient had a small run of SVT as shown on the lead worker of housekeeping and laundry. Dr. Kirk, the chha on board for this patient evaluated the patient and recommended 25 mg metoprolol twice a day. On 12/09/16 patient had another 33 beat run of V. tach probably due to her underlying coronary artery disease, she is started on a mood on 400 mg twice a day per Dr. Kirk's recommendation. We'll continue to monitor Acute cholecystitis status post cholecystostomy tube 11/18/[address], no new complications. It continues to drain. Patient will be off antibiotics. Infectious disease consult service on board. Per general surgery, the tube will stay in for 6-8 weeks. Patient would need an outpatient follow up with Dr. Walls for removal of the cholecystostomy tube if she gets discharged before that. Acute kidney injury/ATN from sepsis/anasarca, low albumin Patient's creatinine is stable at 1.3 - 1.4. This looks like her new baseline Cont Neupogen for a target hemoglobin of 10-11. Continue sodium bicarbonate 1300 mg twice a day as it is shown to be of benefit in chronic kidney disease Nephrology consult service on board Acute on chronic anemia : Patient had guaiac positive stools, she was evaluated by GI no plans of further intervention at this point. Patient is maintained on protonix and probiotics. Patient is tolerating heart healthy diet. 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 Occupational therapy is ordered for her arm excercises and nursing staff with get her out of bed to chair. Hx of DVT/PE s/p IVC filter: IV heparin was stopped due to melena and guaiac positive stools. We'll continue to monitor for now. Patient has an IVC filter placed in 2012 Hypothyroidism: c/w levothyroxine 50mcg daily HTN: Continue Procardia. Blood pressure stable at 150/66. DVT ppx: po eliquis on hold, ALPS for now, full code. Goals of care discussion with the family. There has been multiple discussions regarding code status, but patient always wanted to be full code. Problem List: 1. Acute hypoxemic respiratory failure Pain Ratin Pain Location: n/a Pain Goal: Pain 4 or less Pain Plan: tylenol prn Tomorrow's Labs & Rationales: none Consulting Request: Consulting Specialty: Neurology Consulting Physician: Dr. Rodriguez Reason for Consult: LILLIE, metabolic acidosis KASANDRA NEWBY 12/11/16 1429: Attending MD Review Statement Attending Statement Attending MD Statement: examined this patient, discuss w/resident/PA/BIOCHEMIST, agreed w/resident/PA/BIOCHEMIST, discussed with family, reviewed EMR data (avail), discussed with nursing, discussed with case mgmt, reviewed images Attending Assessment/Plan: Patient appears comfortable despite increasing oxygen requirements. She is experiencing no discomfort at this time. Vitals stable, labs reviewed. Lung exam shows mild coarse breath sounds bilaterally. Patient recently started on amiodarone for NSVT for underlying cornoary artery disease as per cardiology. Will continue high-flow oxygen, nightly BiPAP, follow up pulmonary recommendations, continue home medications, DVT PPx, D/C planning maybe LTAC. d/ fri case management.
--- NOTE | 2016-12-11 07:57 | PN- Cardiology ---
Subjective Subjective: * Doing well. * No significant ventricular arrhythmias noted on amiodarone Objective Vital Signs and I&Os Vital Signs Date Time Temp Pulse Resp B/P Pulse O2 O2 Flow FiO2 Ox Delivery Rate 12/11 0453 56 98 12/10 2233 66 92 12/10 2220 64 130/80 12/10 2219 64 130/80 12/10 1926 92 Nasal 55% Cannula 12/10 1607 89 Nasal 55% Cannula 12/10 1547 98.7 69 20 142/60 90 Nasal Cannula 12/10 1220 65 135/66 12/10 1220 65 135/66 12/10 1219 65 135/66 12/10 1042 94 Nasal 55% Cannula 12/10 1041 65 94 12/10 0830 98.0 62 23 135/66 96 BIPAP 60% 12/10 0800 93 Nasal 55% Cannula Intake & Output 12/11 0800 12/11 0000 12/10 1600 12/10 0800 12/10 0000 12/09 1600 Intake Total 675 120 540 480 Output Total 60 20 30 Balance 675 60 520 450 Intake, Oral 675 120 540 480 Number 1 1 Bowel Movements Output, Other 60 20 30 Physical Exam: General: WD/ WN female in NAD; alert and oriented x 3 Neck: no JVD Heart: RRR w/o murmur Lungs: clear bilaterally Extremities: no edema Assessment/Plan Assessment/Plan * This patient has had some NSVT in the setting of a normal EF. This may be related to underlyiny coronary artery disease. Due to the patient's co- morbidities we will try and treat this medically. Continue Amiodarone 400mg PO BID. Continue metoprolol at 25mg PO BID. * Renal function and WBC are improved. * H/H has improved with improvement in her renal function and with the help of epogen. She is protected by the IVC filter so we will hold off on anticoagulation with Eliquis. Continue telemetry? Yes
[2016-12-11 08:00] VITALS: BP 120/70
--- NOTE | 2016-12-11 12:41 | PN- Pulmonary ---
Subjective HPI/Critical Care Issues: pt seen and examined no events comfortable on high flow 55% Objective Current Medications: Current Medications Sig/Kobi Start time Last Medication Dose Route Stop Time Status Admin Acetaminophen 650 MG Q6P PRN 11/14 1615 AC 11/26 PO 0949 Acetaminophen 1,000 MG Q6P PRN 11/14 1615 AC 11/21 IV 0854 Allopurinol 50 MG DAILY 11/15 1000 AC 12/11 PO 1113 Amiodarone HCl 400 MG BID 12/09 2200 AC 12/11 PO 1114 Baclofen 2.5 MG BID 11/14 2200 AC 12/11 PO 1114 Cholecalciferol 1,000 IU DAILY 11/15 1000 AC 12/11 PO 1113 Epoetin Aldair 10,000 UNIT Q168 12/03 1100 AC 12/10 SC 1443 Ferrous Sulfate 325 MG BID 11/14 2200 AC 12/11 PO 1114 Gabapentin 100 MG DAILY 11/14 1600 AC 12/11 PO 1114 Heparin Sodium 5,000 UNIT Q8 12/05 1400 AC 12/11 (Porcine) SC 0600 Lactobacillus 1 CAP DAILY 11/15 1000 AC 12/11 Acidophilus PO 1113 Levothyroxine Sodium 0.075 MG DAILY AC 11/27 0700 AC 12/11 PO 0723 Magnesium Chloride 64 MG BID 12/08 1015 AC 12/11 PO 1113 Melatonin 3 MG AT BEDTIME PRN 11/19 1545 AC PO Metoprolol Tartrate 25 MG BID 12/06 1200 AC 12/11 PO 1114 Multivitamins 1 TAB DAILY 11/15 1000 AC 12/11 Therapeutic PO 1113 Nifedipine 30 MG DAILY 12/05 1000 AC 12/11 PO 1114 Omeprazole 40 MG DAILY AC 11/20 0954 AC 12/11 PO 0726 Patient Medication 1 ED .STK-MED ONE 12/10 1357 [place] Teaching ED 12/10 1358 Senna/Docusate Sodium 2 TAB DAILY 12/04 1020 AC 12/11 PO 1113 Sodium Bicarbonate 1,300 MG DAILY 12/03 1005 AC 12/11 PO 1113 Vital Signs & I&O Last 24 Hrs of Vitals and I&O: Vital Signs Date Time Temp Pulse Resp B/P Pulse O2 O2 Flow FiO2 Ox Delivery Rate 12/11 0847 97 Nasal 55% Cannula 12/11 0846 53 97 12/11 0800 98.8 60 20 120/70 97 BIPAP 12/11 0453 56 98 12/11 0000 BIPAP 12/10 2233 66 92 12/10 2220 64 130/80 12/10 2219 64 130/80 12/10 2200 98.2 65 20 130/70 95 BIPAP 12/10 1926 92 Nasal 55% Cannula 12/10 1607 89 Nasal 55% Cannula 12/10 1547 98.7 69 20 142/60 90 Nasal Cannula Intake & Output 12/11 1600 12/11 0800 12/11 0000 Intake Total 100 200 Output Total Balance 100 200 Intake, Oral 100 200 Number 1 Bowel Movements Exam Other Physical Findings: gen awake, arousable heent ncat cvs s1, s2 lungs rare rhonchi anterior chest abd soft, bs+ ext mild edema neuro paresis chronic Impression/Plan Impression/Plan Impression/Plan: Impression 81 year old woman - s/p cholecystostomy tube for acute cholecystitis - improving - hypoxemic respiratory failure requiring bipap use - 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
[2016-12-11 16:03] VITALS: BP 150/70
[2016-12-11 23:49] VITALS: BP 130/70
--- NOTE | 2016-12-12 07:34 | PN- Housestaff ---
See Addendum PATRICA LOPEZ 12/12/16 0734: Subjective Follow-up For: Acute hypoxic respiratory failure Electrolyte abnormalities Bradycardia Subjective: Patient seen and examined, she was sitting comfortably on bed. She is noticed to be bradycardiac with HR in 40-50s this morning. Last night the lowest she went was 38. Her morning metoprolol is held. Patient continues to be on BiPAP. Denies any chest pain or difficulty breathing. Patient would eventually need to be discharged to long-term acute care facility. Review of Systems Constitutional: Reports: see HPI. Objective Last 24 Hrs of Vital Signs/I&O Vital Signs Date Time Temp Pulse Resp B/P Pulse O2 O2 Flow FiO2 Ox Delivery Rate 12/12 0810 47 12/12 0810 47 12/12 0810 47 12/12 0800 98.3 49 20 132/80 98 BIPAP 60% 12/12 0329 53 96 12/12 0054 54 97 12/12 0000 96 BIPAP 60% 12/11 2349 98.1 82 18 130/70 94 12/11 2208 58 95 12/11 1902 Nasal 55% Cannula 12/11 1603 98.0 53 20 150/70 95 Nasal Cannula 12/11 1550 95 Nasal 55% Cannula 12/11 1135 Nasal 55% Cannula Intake & Output 12/12 1600 12/12 0800 12/12 0000 Intake Total 480 180 Output Total Balance 480 180 Intake, Oral 480 180 Physical Exam General Appearance: Alert, Cooperative, awake Skin: No Rashes HEENT: Atraumatic Neck: Supple Cardiovascular: Normal S1, Normal S2 Lungs: b/l coarse breath sounds Abdomen: Soft, No Tenderness Neurological: Normal Speech Extremities: No Edema Current Medications: Current Medications Sig/Kobi Start time Last Medication Dose Route Stop Time Status Admin Acetaminophen 650 MG Q6P PRN 11/14 1615 AC 11/26 PO 0949 Acetaminophen 1,000 MG Q6P PRN 11/14 1615 AC 11/21 IV 0854 Allopurinol 50 MG DAILY 11/15 1000 AC 12/11 PO 1113 Amiodarone HCl 400 MG BID 12/09 2199 AC 12/11 PO 2216 Baclofen 2.5 MG BID 11/14 220 AC 12/11 PO 2217 Cholecalciferol 1,000 IU DAILY 11/15 1000 AC 12/11 PO 1113 Epoetin Aldair 10,000 UNIT Q168 12/03 1100 AC 12/10 SC 1443 Ferrous Sulfate 325 MG BID 11/14 2200 AC 12/11 PO 2216 Gabapentin 100 MG DAILY 11/14 1600 AC 12/11 PO 1114 Heparin Sodium 5,000 UNIT Q8 12/05 1400 AC 12/12 (Porcine) SC 0641 Lactobacillus 1 CAP DAILY 11/15 1000 AC 12/11 Acidophilus PO 1113 Levothyroxine Sodium 0.075 MG DAILY AC 11/27 0700 AC 12/12 PO 0641 Magnesium Chloride 64 MG BID 12/08 1015 AC 12/11 PO 2216 Melatonin 3 MG AT BEDTIME PRN 11/19 1545 AC PO Metoprolol Tartrate 25 MG BID 12/06 1200 AC 12/11 PO 2216 Multivitamins 1 TAB DAILY 11/15 1000 AC 12/11 Therapeutic PO 1113 Nifedipine 30 MG DAILY 12/05 1000 AC 12/11 PO 1114 Omeprazole 40 MG DAILY AC 11/20 0954 AC 12/12 PO 0641 Senna/Docusate Sodium 2 TAB DAILY 12/04 1020 AC 12/11 PO 1113 Sodium Bicarbonate 1,300 MG DAILY 12/03 1005 AC 12/11 PO 1113 Assessment/Plan Assessment: Patient is 81 yo female with pmh of HTN, hypothyroidism, HLD, CKD, quadriplegia s/p spinal cord stroke, DVT/PE on eliquis currently on hold, Renal artery stenosis s/p renal artery stenting, who is a resident at [facility] was brought in with fever and possible UTI. Now status post cholecystectomy tube. Most recent chest x-ray from 12/02/2015 shows persistent bibasilar opacification and right greater than left pleural effusions Echocardiogram showed hyperdynamic EF of 80% with impaired LV relaxation and underfilled left ventricle and mildly hypokinetic right ventricle. Problem list 1. Acute cholecystitis status post cholecystostomy tube 2. Acute hypoxic hypercarbic respiratory failure 3. LILLIE secondary to ATN from sepsis 4. Anasarca 5. Anemia of chronic inflammation secondary to kidney disease 6. History of recurrent PEs, DVTs, status post IVC filter 7. History of hypothyroidism 8. 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 History of hypertension 10. Overall poor prognosis and poor functional status Plan - Plan is for [place] evaluation for LTAC on Friday. Acute hypoxic respiratory failure Patient desaturated to 87 on 12/04/16 on nasal cannula, was back on BiPAP. At that time she was given 1 dose of Lasix and her symptoms improved. She continues to be on nocturnal BiPAP. Patient is currently saturating 92% on high flow oxygen plan is to taper Pulmonology consult service on board. Previously there was a suspicion that patient had some pleural effusions and thoracentesis was considered however upon evaluation by IR there were not enough pleural effusions to be tapped Goal of O2 saturation > 88% Patient was short of breath yesterday, a repeat chest x-ray revealed new infiltrates however she continues to remain afebrile and does not have any evidence of leukocytosis we'll continue to monitor off antibiotics Arrhythmia On 12/06/16 patient had a 8 be run of V. tach and prior to that on 12/05/16 patient had a small run of SVT as shown on the monitoring coordinator. Dr. Kirk, the furniture sales consultant on board for this patient evaluated the patient and recommended 25 mg metoprolol twice a day. On 12/09/16 patient had another 33 beat run of V. tach probably due to her underlying coronary artery disease, she is started on a mood on 400 mg twice a day per Dr. Kirk's recommendation. We'll continue to monitor Bradycardia Patient has been bradycardic. Her lowest heart rate was recorded to be 38. She is on 25 Medrol twice a day and amiodarone 400 twice a day. Will discuss with Dr. Kirk. We will get an EKG. Acute cholecystitis status post cholecystostomy tube 11/18/[address], no new complications. It continues to drain. Patient will be off antibiotics. Infectious disease consult service on board. Per general surgery, the tube will stay in for 6-8 weeks. Patient would need an outpatient follow up with Dr. Walls for removal of the cholecystostomy tube if she gets discharged before that. Acute kidney injury/ATN from sepsis/anasarca, low albumin Patient's creatinine is stable at 1.3 - 1.4. This looks like her new baseline Cont Neupogen for a target hemoglobin of 10-11. Continue sodium bicarbonate 1300 mg twice a day as it is shown to be of benefit in chronic kidney disease Nephrology consult service on board Acute on chronic anemia : Patient had guaiac positive stools, she was evaluated by GI no plans of further intervention at this point. Patient is maintained on protonix and probiotics. Patient is tolerating heart healthy diet. 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 Occupational therapy is ordered for her arm excercises and nursing staff with get her out of bed to chair. Hx of DVT/PE s/p IVC filter: IV heparin was stopped due to melena and guaiac positive stools. We'll continue to monitor for now. Patient has an IVC filter placed in 2012 Hypothyroidism: c/w levothyroxine 50mcg daily HTN: Continue Procardia. Blood pressure stable at 150/66. DVT ppx: po eliquis on hold, ALPS for now, full code. Goals of care discussion with the family. There has been multiple discussions regarding code status, but patient always wanted to be full code. Problem List: 1. Acute hypoxemic respiratory failure Pain Ratin Pain Location: n/a Pain Goal: Pain 4 or less Pain Plan: tylenol for pain Tomorrow's Labs & Rationales: none Consulting Request: Consulting Specialty: Neurology Consulting Physician: Dr. Rodriugez Reason for Consult: LILLIE, metabolic acidosis KASANDRA NEWBY 12/12/16 0952: Attending MD Review Statement Attending Statement Attending MD Statement: examined this patient, discuss w/resident/PA/PRODUCT SAFETY SPECIALIST, agreed w/resident/PA/PRODUCT SAFETY SPECIALIST, discussed with family, reviewed EMR data (avail), discussed with nursing, discussed with case mgmt, reviewed images Attending Assessment/Plan: Patient appears comfortable despite increasing oxygen requirements. She is experiencing no discomfort at this time. Vitals stable, labs reviewed. Lung exam shows mild coarse breath sounds bilaterally. Patient recently started on amiodarone for NSVT for underlying cornoary artery disease as per cardiology. Will continue high-flow oxygen, nightly BiPAP, follow up pulmonary recommendations, continue home medications, DVT PPx, D/C planning maybe LTAC. d/ wed case management. cont current care.
[2016-12-12 08:00] VITALS: BP 132/80
--- NOTE | 2016-12-12 09:35 | RADIOLOGY REPORT ---
EXAMINATION: XR PORTABLE CHEST CLINICAL INFORMATION: Pulmonary consolidation/effusion COMPARISON: 12/09/2016 TECHNIQUE: Portable AP view of the chest was obtained. FINDINGS: Limited radiograph with rotated position of patient. The right lung opacities appear better. There is likely retrocardiac airspace disease. There is also a small right pleural effusion and indeterminate effusion on the left. IMPRESSION: Limited radiograph, with findings as above.
--- NOTE | 2016-12-12 12:15 | PN- Pulmonary ---
Subjective HPI/Critical Care Issues: pt seen and examined stable bipap overnight high flow still at 55% doing better communicating Objective Current Medications: Current Medications Sig/Kobi Start time Last Medication Dose Route Stop Time Status Admin Acetaminophen 650 MG Q6P PRN 11/14 1615 AC 11/26 PO 0949 Acetaminophen 1,000 MG Q6P PRN 11/14 1615 AC 11/21 IV 0854 Allopurinol 50 MG DAILY 11/15 1000 AC 12/12 PO 1034 Amiodarone HCl 400 MG BID 12/09 2200 AC 12/12 PO 1034 Baclofen 2.5 MG BID 11/14 2200 AC 12/12 PO 1033 Cholecalciferol 1,000 IU DAILY 11/15 1000 AC 12/12 PO 1032 Epoetin Aldair 10,000 UNIT Q168 12/03 1100 AC 12/10 SC 1443 Ferrous Sulfate 325 MG BID 11/14 2200 AC 12/12 PO 1033 Gabapentin 100 MG DAILY 11/14 1600 AC 12/12 PO 1032 Heparin Sodium 5,000 UNIT Q8 12/05 1400 AC 12/12 (Porcine) SC 0641 Lactobacillus 1 CAP DAILY 11/15 1000 AC 12/12 Acidophilus PO 1034 Levothyroxine Sodium 0.075 MG DAILY AC 11/27 0700 AC 12/12 PO 0641 Magnesium Chloride 64 MG BID 12/08 1015 AC 12/12 PO 1033 Melatonin 3 MG AT BEDTIME PRN 11/19 1545 AC PO Metoprolol Tartrate 12.5 MG BID 12/12 2200 AC 12/12 PO 1034 Metoprolol Tartrate 25 MG BID 12/06 1200 DC 12/11 PO 2216 Multivitamins 1 TAB DAILY 11/15 1000 AC 12/12 Therapeutic PO 1032 Nifedipine 30 MG DAILY 12/05 1000 AC 12/12 PO 1033 Omeprazole 40 MG DAILY AC 11/20 0954 AC 12/12 PO 0641 Patient Medication 1 ED .STK-MED ONE 12/12 1131 [place] Teaching ED 12/12 1132 Senna/Docusate Sodium 2 TAB DAILY 12/04 1020 AC 12/12 PO 1032 Sodium Bicarbonate 1,300 MG DAILY 12/03 1005 AC 12/12 PO 1032 Vital Signs & I&O Last 24 Hrs of Vitals and I&O: Vital Signs Date Time Temp Pulse Resp B/P Pulse O2 O2 Flow FiO2 Ox Delivery Rate 12/12 1100 95 Nasal 50% Cannula 12/12 1034 54 132/80 12/12 1034 54 132/80 12/12 1033 54 132/80 12/12 0810 47 12/12 0800 96 BIPAP 60% 12/12 0800 98.3 49 20 132/80 98 BIPAP 60% 12/12 0329 53 96 12/12 0054 54 97 03 0000 96 BIPAP 60% 12/11 2349 98.1 82 18 130/70 94 12/11 2208 58 95 12/11 1902 Nasal 55% Cannula 12/11 1603 98.0 53 20 150/70 95 Nasal Cannula 12/11 1550 95 Nasal 55% Cannula Intake & Output 12/12 1600 12/12 0800 12/12 0000 Intake Total 480 180 Output Total Balance 480 180 Intake, Oral 480 180 Exam Other Physical Findings: gen awake, arousable heent ncat cvs s1, s2 lungs rare rhonchi anterior chest abd soft, bs+ ext mild edema neuro paresis chronic Impression/Plan Impression/Plan Impression/Plan: Impression 81 year old woman - s/p cholecystostomy tube for acute cholecystitis - improving - hypoxemic respiratory failure requiring bipap use - 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
[2016-12-12 16:00] VITALS: BP 130/54
--- NOTE | 2016-12-12 20:06 | PN- Cardiology ---
Subjective Subjective: * No complaints * Patient noted to have mild and asymptomatic bradycardia on both Metoprolol and Amiodarone. Objective Vital Signs and I&Os Vital Signs Date Time Temp Pulse Resp B/P Pulse O2 O2 Flow FiO2 Ox Delivery Rate 12/12 1900 92 Nasal 50% Cannula 12/12 1610 92 Nasal 50% Cannula 12/12 1600 92 Nasal 50% Cannula 12/12 1600 97.4 55 20 130/54 93 Nasal Cannula 12/12 1100 95 Nasal 50% Cannula 12/12 1034 54 132/80 12/12 1034 54 132/80 12/12 1033 54 132/80 12/12 0810 47 12/12 0800 96 BIPAP 60% 12/12 0800 98.3 49 20 132/80 98 BIPAP 60% 12/12 0329 53 96 12/12 0054 54 97 12/12 0000 96 BIPAP 60% 12/11 2349 98.1 82 18 130/70 94 12/11 2208 58 95 Intake & Output 12/12 1600 12/12 0800 12/12 0000 12/11 1600 12/11 0800 12/11 0000 Intake Total 480 480 180 400 100 200 Output Total 140 Balance 480 480 180 260 100 200 Intake, Oral 480 480 180 400 100 200 Number 1 Bowel Movements Output, Other 140 Physical Exam: General: WD/ WN female in NAD; alert and oriented x 3 Neck: no JVD Heart: RRR w/o murmur Lungs: clear bilaterally Extremities: no edema Assessment/Plan Assessment/Plan * This patient is doing better in terms of dysrhythmias on Amiodarone which should be continued. The combination of beta blockers and Amiodarone, which has some beta blocking effects itself, can often lead to bradycardia. We will decrease the Metoprolol and continue to monitor on telemetry. Continue telemetry? Yes
[2016-12-13 02:15] VITALS: BP 115/56
--- NOTE | 2016-12-13 07:25 | PN- Housestaff ---
See Addendum Subjective Follow-up For: Acute hypoxic history failure Electrolyte abnormalities Bradycardia Subjective: Patient seen and examined this morning sitting comfortably in the bed using BiPAP. Patient was evaluated by [facility] yesterday for a possible long-term acute rehabilitation but she was declined. Patient continues to be bradycardic with a pulse rate of 50, her other vitals are stable. Her labs are stable. Review of Systems Constitutional: Reports: see HPI. Objective Last 24 Hrs of Vital Signs/I&O Vital Signs Date Time Temp Pulse Resp B/P Pulse O2 O2 Flow FiO2 Ox Delivery Rate 12/13 0907 50 122/56 12/13 0905 50 122/56 12/13 0905 50 122/56 12/13 0839 Nasal 50% Cannula 12/13 0832 97.8 50 22 122/56 92 12/13 0826 92 Nasal 50% Cannula 12/13 0549 54 96 12/13 0215 97.4 56 22 115/56 97 Nasal Cannula 12/13 0112 53 96 12/13 0000 94 BIPAP 55% 12/12 2213 59 96 12/12 2119 59 130/54 12/12 2119 59 130/54 12/12 1900 92 Nasal 50% Cannula 12/12 1610 92 Nasal 50% Cannula 12/12 1600 92 Nasal 50% Cannula 12/12 1600 97.4 55 20 130/54 93 Nasal Cannula 12/12 1100 95 Nasal 50% Cannula Intake & Output 12/13 1600 12/13 0800 12/13 0000 Intake Total 480 240 Output Total Balance 480 240 Intake, Oral 480 240 Physical Exam General Appearance: Alert, Cooperative, No Acute Distress, awake Skin: No Rashes, No Breakdown HEENT: Atraumatic Neck: Supple Cardiovascular: Normal S1, Normal S2, bradycardia Lungs: Normal Air Movement Abdomen: Soft, No Tenderness Neurological: Normal Speech Current Medications: Current Medications Sig/Kobi Start time Last Medication Dose Route Stop Time Status Admin Acetaminophen 650 MG Q6P PRN 11/14 1615 AC 11/26 PO 0949 Acetaminophen 1,000 MG Q6P PRN 11/14 1615 AC 11/21 IV 0854 Allopurinol 50 MG DAILY 11/15 1000 AC 12/13 PO 0906 Amiodarone HCl 400 MG BID 12/09 2199 AC 12/13 PO 0905 Baclofen 2.5 MG BID 11/14 2199 AC 12/13 PO 0907 Cholecalciferol 1,000 IU DAILY 11/15 1000 AC 12/13 PO 0906 Epoetin Aldair 10,000 UNIT Q168 12/03 1100 AC 12/10 SC 1443 Ferrous Sulfate 325 MG BID 11/14 2200 AC 12/13 PO 0905 Gabapentin 100 MG DAILY 11/14 1600 AC 12/13 PO 0905 Heparin Sodium 5,000 UNIT Q8 12/05 1400 AC 12/13 (Porcine) SC 0538 Lactobacillus 1 CAP DAILY 11/15 1000 AC 12/13 Acidophilus PO 0905 Levothyroxine Sodium 0.075 MG DAILY AC 11/27 0700 AC 12/13 PO 0538 Magnesium Chloride 64 MG BID 12/08 1015 AC 12/13 PO 0905 Melatonin 3 MG AT BEDTIME PRN 11/19 1545 AC PO Metoprolol Tartrate 12.5 MG BID 12/12 2200 AC 12/12 PO 2119 Multivitamins 1 TAB DAILY 11/15 1000 AC 12/13 Therapeutic PO 0906 Nifedipine 30 MG DAILY 12/05 1000 AC 12/13 PO 0905 Omeprazole 40 MG DAILY AC 11/20 0954 AC 12/13 PO 0537 Patient Medication 1 ED .STK-MED ONE 12/12 1131 [place] Teaching ED 12/12 1132 Senna/Docusate Sodium 2 TAB DAILY 12/04 1020 AC 12/13 PO 0906 Sodium Bicarbonate 1,300 MG DAILY 12/03 1005 AC 12/13 PO 0906 Last 24 Hrs of Lab/Jun Results Last 24 Hrs of Labs/Mics: Laboratory Tests 12/13/16 0605: Anion Gap 4 L, Estimated GFR 33 L, BUN/Creatinine Ratio 12.0, CBC w Diff MAN DIFF ORDERED, RBC 3.90 L, MCV 84.6, MCH 26.5 L, RDW 18.8 H, MPV 12.0 H, Segmented Neutrophils 75, Lymphocytes 18 L, Monocytes 4, Eosinophils 3, Nucleated RBCs 4 H, Platelet Estimate VERIFIED BY SMEAR, Poikilocytosis 2+, Anisocytosis 2+, Target Cells 2+, PUBS MCHC 31.3 L Assessment/Plan Assessment: Patient is 81 yo female with pmh of HTN, hypothyroidism, HLD, CKD, quadriplegia s/p spinal cord stroke, DVT/PE on eliquis currently on hold, Renal artery stenosis s/p renal artery stenting, who is a resident at [facility] was brought in with fever and possible UTI. Now status post cholecystectomy tube. Most recent chest x-ray from 12/02/2015 shows persistent bibasilar opacification and right greater than left pleural effusions Echocardiogram showed hyperdynamic EF of 80% with impaired LV relaxation and underfilled left ventricle and mildly hypokinetic right ventricle. Problem list 1. Acute cholecystitis status post cholecystostomy tube 2. Acute hypoxic hypercarbic respiratory failure 3. LILLIE secondary to ATN from sepsis 4. Anasarca 5. Anemia of chronic inflammation secondary to kidney disease 6. History of recurrent PEs, DVTs, status post IVC filter 7. History of hypothyroidism 8. 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 History of hypertension 10. Overall poor prognosis and poor functional status Plan - Plan is for [place] evaluation for LTAC on Friday. Acute hypoxic respiratory failure Patient desaturated to 87 on 12/04/16 on nasal cannula, was back on BiPAP. At that time she was given 1 dose of Lasix and her symptoms improved. She continues to be on nocturnal BiPAP. Patient is currently saturating 92% on high flow oxygen plan is to taper Pulmonology consult service on board. Previously there was a suspicion that patient had some pleural effusions and thoracentesis was considered however upon evaluation by IR there were not enough pleural effusions to be tapped Goal of O2 saturation > 88% Arrhythmia On 12/06/16 patient had a 8 be run of V. tach and prior to that on 12/05/16 patient had a small run of SVT as shown on the improvement rn. Dr. Kirk, the soaping machine back tender on board for this patient evaluated the patient and recommended 25 mg metoprolol twice a day. On 12/09/16 patient had another 33 beat run of V. tach probably due to her underlying coronary artery disease, she is started on amiodarone on 400 mg twice a day per Dr. Kirk's recommendation. We'll continue to monitor Bradycardia Patient has been bradycardic. . She is on 25 Medrol twice a day which was decreased to 12.5 twice a day on . She continues to be on amiodarone [address] Kirk is on board Acute cholecystitis status post cholecystostomy tube 11/18/[address], no new complications. It continues to drain. Patient will be off antibiotics. Infectious disease consult service on board. Per general surgery, the tube will stay in for 6-8 weeks. Patient would need an outpatient follow up with Dr. Walls for removal of the cholecystostomy tube if she gets discharged before that. The tube will come out on, 12/30/16. Acute kidney injury/ATN from sepsis/anasarca, low albumin Patient's creatinine is stable at 1.3 - 1.4. This looks like her new baseline Her creatinine on 12/13/16 is 1.5, she is encouraged on oral fluid intake Cont Neupogen for a target hemoglobin of 10-11. Continue sodium bicarbonate 1300 mg twice a day as it is shown to be of benefit in chronic kidney disease Nephrology consult service on board Acute on chronic anemia : Patient had guaiac positive stools, she was evaluated by GI no plans of further intervention at this point. Patient is maintained on protonix and probiotics. Patient is tolerating heart healthy diet. 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 Occupational therapy is ordered for her arm excercises and nursing staff with get her out of bed to chair. Hx of DVT/PE s/p IVC filter: IV heparin was stopped due to melena and guaiac positive stools. We'll continue to monitor for now. Patient has an IVC filter placed in 2012 Hypothyroidism: c/w levothyroxine 50mcg daily HTN: Continue Procardia. Blood pressure stable at 150/66. DVT ppx: po eliquis on hold, ALPS for now, full code. Goals of care discussion with the family. There has been multiple discussions regarding code status, but patient always wanted to be full code. Problem List: 1. Acute hypoxemic respiratory failure Pain Ratin Pain Location: one Pain Goal: Pain 4 or less Pain Plan: tylenol prn for pain Tomorrow's Labs & Rationales: none Consulting Request: Consulting Specialty: Neurology Consulting Physician: Dr. Rodriguez Reason for Consult: LILLIE, metabolic acidosis
[2016-12-13 07:52] LABS: MEAN CORPUSCULAR HGB 26.5 PG (27.0-31.0); MEAN CORPUSCULAR HGB CONC 31.3 G/DL (33.0-37.0); MEAN CORPUSCULAR VOLUME 84.6 FL (81.0-99.0); PLATELET COUNT 233 /CUMM (130-400); RBC DISTRIBUTION WIDTH 18.8 % (11.5-14.5)
[2016-12-13 08:32] VITALS: BP 122/56
[2016-12-13 09:20] LABS: WHITE BLOOD CELL COUNT 8.2 /CUMM (4.8-10.8)
--- NOTE | 2016-12-13 13:19 | NUR ---
1000: PT HEART RATE HIGH 40'S- LOW 50'S. HELD METOPROLOL PER MD BURCIAGA JESSICA. WILL CONTINUE TO MONITOR.
--- NOTE | 2016-12-13 15:47 | PN- Pulmonary ---
Subjective HPI/Critical Care Issues: Patient seen and examined. No chest pain, fio2 reduced to 50% No nausea, vomiting, diarrhea or constipation. Afebrile and hemodynamically stable. Objective Current Medications: Current Medications Sig/Kobi Start time Last Medication Dose Route Stop Time Status Admin Acetaminophen 650 MG Q6P PRN 11/14 1615 AC 11/26 PO 0949 Acetaminophen 1,000 MG Q6P PRN 11/14 1615 AC 11/21 IV 0854 Allopurinol 50 MG DAILY 11/15 1000 AC 12/13 PO 0906 Amiodarone HCl 400 MG BID 12/09 2200 AC 12/13 PO 0905 Baclofen 2.5 MG BID 11/14 2200 AC 12/13 PO 0907 Cholecalciferol 1,000 IU DAILY 11/15 1000 AC 12/13 PO 0906 Epoetin Aldair 10,000 UNIT Q168 12/03 1100 AC 12/10 SC 1443 Ferrous Sulfate 325 MG BID 11/14 2200 AC 12/13 PO 0905 Gabapentin 100 MG DAILY 11/14 1600 AC 12/13 PO 0905 Heparin Sodium 5,000 UNIT Q8 12/05 1400 AC 12/13 (Porcine) SC 1334 Lactobacillus 1 CAP DAILY 11/15 1000 AC 12/13 Acidophilus PO 0905 Levothyroxine Sodium 0.075 MG DAILY AC 11/27 0700 AC 12/13 PO 0538 Magnesium Chloride 64 MG BID 12/08 1015 AC 12/13 PO 0905 Melatonin 3 MG AT BEDTIME PRN 11/19 1545 AC PO Metoprolol Tartrate 12.5 MG BID 12/12 2200 AC 12/12 PO 2119 Multivitamins 1 TAB DAILY 11/15 1000 AC 12/13 Therapeutic PO 0906 Nifedipine 30 MG DAILY 12/05 1000 AC 12/13 PO 0905 Omeprazole 40 MG DAILY AC 11/20 0954 AC 12/13 PO 0537 Senna/Docusate Sodium 2 TAB DAILY 12/04 1020 AC 12/13 PO 0906 Sodium Bicarbonate 1,300 MG DAILY 12/03 1005 AC 12/13 PO 0906 Vital Signs & I&O Last 24 Hrs of Vitals and I&O: Vital Signs Date Time Temp Pulse Resp B/P Pulse O2 O2 Flow FiO2 Ox Delivery Rate 12/13 1224 50% 12/13 09 50 122/56 12/13 0905 50 122/56 12/13 0905 50 122/56 12/13 0839 Nasal 50% Cannula 12/13 0832 97.8 50 22 122/56 92 12/13 0826 92 Nasal 50% Cannula 12/13 0549 54 96 12/13 0215 97.4 56 22 115/56 97 Nasal Cannula 12/13 0112 53 96 12/13 0000 94 BIPAP 55% 12/12 2213 59 96 12/12 2119 59 130/54 12/12 2119 59 130/54 12/12 1900 92 Nasal 50% Cannula 12/12 1610 92 Nasal 50% Cannula 12/12 1600 92 Nasal 50% Cannula 12/12 1600 97.4 55 20 130/54 93 Nasal Cannula Intake & Output 12/13 1600 12/13 0800 12/13 0000 Intake Total 480 480 240 Output Total 60 Balance 420 480 240 Intake, Oral 480 480 240 Output, Other 60 Exam Other Physical Findings: gen awake, arousable heent ncat cvs s1, s2 lungs rare rhonchi anterior chest abd soft, bs+ ext mild edema neuro paresis chronic Results Last 24 Hrs of Lab Results: Laboratory Tests 12/13/16 0605: Anion Gap 4 L, Estimated GFR 33 L, BUN/Creatinine Ratio 12.0, CBC w Diff MAN DIFF ORDERED, RBC 3.90 L, MCV 84.6, MCH 26.5 L, RDW 18.8 H, MPV 12.0 H, Segmented Neutrophils 75, Lymphocytes 18 L, Monocytes 4, Eosinophils 3, Nucleated RBCs 4 H, Platelet Estimate VERIFIED BY SMEAR, Poikilocytosis 2+, Anisocytosis 2+, Target Cells 2+, PUBS MCHC 31.3 L Impression/Plan Impression/Plan Impression/Plan: Impression 81 year old woman - s/p cholecystostomy tube for acute cholecystitis - improving - hypoxemic respiratory failure requiring bipap use - 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
[2016-12-13 16:31] VITALS: BP 149/58
[2016-12-14 00:18] VITALS: BP 114/60
[2016-12-14 08:17] VITALS: BP 102/80
--- NOTE | 2016-12-14 08:25 | PN- Housestaff ---
FRANKY METZ,GIORGI 12/14/16 0825: Subjective Follow-up For: CHF Subjective: no comlains Review of Systems Constitutional: Reports: see HPI. Objective Last 24 Hrs of Vital Signs/I&O Vital Signs Date Time Temp Pulse Resp B/P Pulse O2 O2 Flow FiO2 Ox Delivery Rate 12/14 0958 58 102/80 12/14 0957 58 102/80 12/14 0957 58 102/80 12/14 0817 58 28 102/80 98 12/14 0813 93 Nasal 50% Cannula 12/14 0813 93 12/14 0800 Nasal 50% Cannula 12/14 0405 58 98 12/14 0219 60 97 12/14 0050 63 98 12/14 0018 97.8 62 18 114/60 92 Nasal Cannula 12/14 0000 BIPAP 12/13 2218 Nasal 50% Cannula 12/13 2141 60 12/13 2134 60 12/13 1823 Nasal 50% Cannula 12/13 1631 97.5 56 22 149/58 90 Nasal 45% Cannula 12/13 1600 96 Nasal 50% Cannula 12/13 1550 92 Nasal 50% Cannula 12/13 1547 55 92 12/13 1224 50% Intake & Output 12/14 1600 12/14 0800 12/14 0000 Intake Total 130 250 Output Total 50 40 Balance 80 210 Intake, IV 10 10 Intake, Oral 120 240 Number 1 Bowel Movements Output, Other 50 40 Physical Exam General Appearance: Alert Assessment/Plan Assessment: Patient is 81 yo female with pmh of HTN, hypothyroidism, HLD, CKD, quadriplegia s/p spinal cord stroke, DVT/PE on eliquis currently on hold, Renal artery stenosis s/p renal artery stenting, who is a resident at [facility] was brought in with fever and possible UTI. Now status post cholecystectomy tube. Most recent chest x-ray from 12/02/2015 shows persistent bibasilar opacification and right greater than left pleural effusions Echocardiogram showed hyperdynamic EF of 80% with impaired LV relaxation and underfilled left ventricle and mildly hypokinetic right ventricle. Problem list 1. Acute cholecystitis status post cholecystostomy tube 2. Acute hypoxic hypercarbic respiratory failure 3. LILLIE secondary to ATN from sepsis 4. Anasarca 5. Anemia of chronic inflammation secondary to kidney disease 6. History of recurrent PEs, DVTs, status post IVC filter 7. History of hypothyroidism 8. 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 History of hypertension 10. Overall poor prognosis and poor functional status Plan - Plan is for [place] evaluation for LTAC on Friday. Acute hypoxic respiratory failure c/w nocturnal BIPAP and high flow or nasal as tolerated in the am Arrhythmia On 12/06/16 patient had a 8 be run of V. tach and prior to that on 12/05/16 patient had a small run of SVT as shown on the bicycle messenger. Dr. Kirk, the real estate inspector on board for this patient evaluated the patient and recommended 25 mg metoprolol twice a day. On 12/09/16 patient had another 33 beat run of V. tach probably due to her underlying coronary artery disease, she is started on amiodarone on 400 mg twice a day per Dr. Kirk's recommendation. We'll continue to monitor Bradycardia Patient has been bradycardic. . She is on 25 Medrol twice a day which was decreased to 12.5 twice a day on . She continues to be on amiodarone [address] Kirk is on board Acute cholecystitis status post cholecystostomy tube 11/18/[address] in [address], no new complications. It continues to drain. Patient will be off antibiotics. Infectious disease consult service on board. Per general surgery, the tube will stay in for 6-8 weeks. Patient would need an outpatient follow up with Dr. Walls for removal of the cholecystostomy tube if she gets discharged before that. The tube will come out on, 12/30/16. Acute kidney injury/ATN from sepsis/anasarca, low albumin Patient's creatinine is stable at 1.3 - 1.4. This looks like her new baseline Her creatinine on 12/13/16 is 1.5, she is encouraged on oral fluid intake Cont Neupogen for a target hemoglobin of 10-11. Continue sodium bicarbonate 1300 mg twice a day as it is shown to be of benefit in chronic kidney disease Nephrology consult service on board Acute on chronic anemia : Patient had guaiac positive stools, she was evaluated by GI no plans of further intervention at this point. Patient is maintained on protonix and probiotics. Patient is tolerating heart healthy diet. 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 Occupational therapy is ordered for her arm excercises and nursing staff with get her out of bed to chair. Hx of DVT/PE s/p IVC filter: IV heparin was stopped due to melena and guaiac positive stools. We'll continue to monitor for now. Patient has an IVC filter placed in 2012 Hypothyroidism: c/w levothyroxine 50mcg daily HTN: Continue Procardia. Blood pressure stable at 150/66. DVT ppx: po eliquis on hold, ALPS for now, full code. Goals of care discussion with the family. There has been multiple discussions regarding code status, but patient always wanted to be full code. Problem List: 1. Acute respiratory failure with hypoxia and hypercarbia 2. Hypothyroidism Pain Ratin Pain Location: BACK Pain Goal: Remain pain free Pain Plan: TYLENOL NEEDED Tomorrow's Labs & Rationales: NONE Consulting Request: Consulting Specialty: Neurology Consulting Physician: Dr. Rodriguez Reason for Consult: LILLIE, metabolic acidosis KASANDRA NEWBY 12/14/16 1007: Attending MD Review Statement Attending Statement Attending MD Statement: examined this patient, discuss w/resident/PA/CHILD NURSE, agreed w/resident/PA/CHILD NURSE, discussed with family, reviewed EMR data (avail), discussed with nursing, discussed with case mgmt, reviewed images Attending Assessment/Plan: Patient appears comfortable despite increasing oxygen requirements. She is experiencing no discomfort at this time. Vitals stable, labs reviewed. Lung exam shows mild coarse breath sounds bilaterally. Patient recently started on amiodarone for NSVT for underlying cornoary artery disease as per cardiology. Will continue high-flow oxygen, nightly BiPAP, follow up pulmonary recommendations, continue home medications, DVT PPx, D/C planning maybe Velazquezfriday family agreement. case management. f/u case management. Patient appears comfortable despite increasing oxygen requirements. She is experiencing no discomfort at this time. Vitals stable, labs reviewed. Lung exam shows mild coarse breath sounds bilaterally. Patient recently started on amiodarone for NSVT for underlying cornoary artery disease as per cardiology. Will continue high-flow oxygen, nightly BiPAP, follow up pulmonary recommendations, continue home medications, DVT PPx, D/C planning maybe Velazquez friday family agreement. d/fri case management. f/u case management.
--- NOTE | 2016-12-14 14:24 | PN- Pulmonary ---
Subjective HPI/Critical Care Issues: Doing well no complaints Afebrile Vital signs otherwise stable BiPAP last night feels better Review of Systems: Eyes no blurred or double vision Ears no deafness or ringing Nose and throat no recurrent sinusitis Lungs per history of present illness Heart per history of present illness Abdomen no nausea vomiting Musculoskeletal occasional muscle and joint pains Psych no anxiety or depression Neuro without recurrent headache or seizures Endocrine no heat or cold intolerance Objective Current Medications: Current Medications Sig/Kobi Start time Last Medication Dose Route Stop Time Status Admin Acetaminophen 650 MG Q6P PRN 11/14 1615 AC 11/26 PO 0949 Acetaminophen 1,000 MG Q6P PRN 11/14 1615 AC 11/21 IV 0854 Allopurinol 50 MG DAILY 11/15 1000 AC 12/14 PO 0958 Amiodarone HCl 400 MG BID 12/09 220 AC 12/14 PO 0957 Baclofen 2.5 MG BID 11/14 2200 AC 12/14 PO 0958 Cholecalciferol 1,000 IU DAILY 11/15 1000 AC 12/14 PO 0958 Epoetin Aldair 10,000 UNIT Q168 12/03 1100 AC 12/10 SC 1443 Ferrous Sulfate 325 MG BID 11/14 2200 AC 12/14 PO 0957 Gabapentin 100 MG DAILY 11/14 1600 AC 12/14 PO 0958 Heparin Sodium 5,000 UNIT Q8 12/05 1400 AC 12/14 (Porcine) SC 0559 Lactobacillus 1 CAP DAILY 11/15 1000 AC 12/14 Acidophilus PO 0958 Levothyroxine Sodium 0.075 MG DAILY AC 11/27 0700 AC 12/14 PO 0559 Magnesium Chloride 64 MG BID 12/08 1015 AC 12/14 PO 0958 Melatonin 3 MG AT BEDTIME PRN 11/19 1545 AC PO Metoprolol Tartrate 12.5 MG BID 12/12 2200 AC 12/14 PO 0957 Multivitamins 1 TAB DAILY 11/15 1000 AC 12/14 Therapeutic PO 0958 Nifedipine 30 MG DAILY 12/05 1000 AC 12/14 PO 0958 Omeprazole 40 MG DAILY AC 11/20 0954 AC 12/14 PO 0559 Senna/Docusate Sodium 2 TAB DAILY 12/04 1020 AC 12/14 PO 0958 Sodium Bicarbonate 1,300 MG DAILY 12/03 1005 AC 12/14 PO 0958 Vital Signs & I&O Last 24 Hrs of Vitals and I&O: Vital Signs Date Time Temp Pulse Resp B/P Pulse O2 O2 Flow FiO2 Ox Delivery Rate 12/14 1123 94 Nasal 5.0L Cannula 12/14 0958 58 102/80 12/14 0957 58 102/80 12/14 0957 58 102/80 12/14 0817 58 28 102/80 98 12/14 0813 93 Nasal 50% Cannula 12/14 0813 93 12/14 0800 Nasal 50% Cannula 12/14 0405 58 98 12/14 0219 60 97 12/14 0050 63 98 12/14 0018 97.8 62 18 114/60 92 Nasal Cannula 12/14 0000 BIPAP 12/13 2218 Nasal 50% Cannula 12/13 2141 60 12/13 2134 60 12/13 1823 Nasal 50% Cannula 12/13 1631 97.5 56 22 149/58 90 Nasal 45% Cannula 12/13 1600 96 Nasal 50% Cannula 12/13 1550 92 Nasal 50% Cannula 12/13 1547 55 92 Intake & Output 12/14 1600 12/14 0800 12/14 0000 Intake Total 130 250 Output Total 50 40 Balance 80 210 Intake, IV 10 10 Intake, Oral 120 240 Number 1 Bowel Movements Output, Other 50 40 Impression/Plan Impression/Plan Impression/Plan: Exam Other Physical Findings: gen awake, arousable heent ncat cvs s1, s2 lungs rare rhonchi anterior chest abd soft, bs+ ext mild edema neuro paresis chronic 81 year old woman - s/p cholecystostomy tube for acute cholecystitis - improving - hypoxemic respiratory failure requiring bipap use - 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
[2016-12-14 15:48] VITALS: BP 136/68
[2016-12-15 00:07] VITALS: BP 120/66
[2016-12-15 07:50] VITALS: BP 125/70
--- NOTE | 2016-12-15 11:09 | PN- Att Addend ---
Attending Addendum Attending Brief Note Patient is 81 yo female with pmh of HTN, hypothyroidism, HLD, CKD, quadriplegia s/p spinal cord stroke, DVT/PE on eliquis currently on hold, Renal artery stenosis s/p renal artery stenting, who is a resident at [facility] was brought in with fever and possible UTI. Now status post cholecystectomy tube. Most recent chest x-ray from 12/02/2015 shows persistent bibasilar opacification and right greater than left pleural effusions Echocardiogram showed hyperdynamic EF of 80% with impaired LV relaxation and underfilled left ventricle and mildly hypokinetic right ventricle. Problem list 1. Acute cholecystitis status post cholecystostomy tube 2. Acute hypoxic hypercarbic respiratory failure 3. LILLIE secondary to ATN from sepsis 4. Anasarca 5. Anemia of chronic inflammation secondary to kidney disease 6. History of recurrent PEs, DVTs, status post IVC filter 7. History of hypothyroidism 8. 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 History of hypertension 10. Overall poor prognosis and poor functional status Plan - Plan is for [place] evaluation for LTAC on Friday. Acute hypoxic respiratory failure c/w nocturnal BIPAP and high flow or nasal as tolerated in the am Arrhythmia On 12/06/16 patient had a 8 be run of V. tach and prior to that on 12/05/16 patient had a small run of SVT as shown on the electronic device monitor. Dr. Kirk, the pizza cook on board for this patient evaluated the patient and recommended 25 mg metoprolol twice a day. On 12/09/16 patient had another 33 beat run of V. tach probably due to her underlying coronary artery disease, she is started on amiodarone on 400 mg twice a day per Dr. Kirk's recommendation. We'll continue to monitor Bradycardia Patient has been bradycardic. . She is on 25 Medrol twice a day which was decreased to 12.5 twice a day on . She continues to be on amiodarone [address] Kirk is on board Acute cholecystitis status post cholecystostomy tube 11/18/[address], no new complications. It continues to drain. Patient will be off antibiotics. Infectious disease consult service on board. Per general surgery, the tube will stay in for 6-8 weeks. Patient would need an outpatient follow up with Dr. Walls for removal of the cholecystostomy tube if she gets discharged before that. The tube will come out on, 12/30/16. Acute kidney injury/ATN from sepsis/anasarca, low albumin Patient's creatinine is stable at 1.3 - 1.4. This looks like her new baseline Her creatinine on 12/13/16 is 1.5, she is encouraged on oral fluid intake Cont Neupogen for a target hemoglobin of 10-11. Continue sodium bicarbonate 1300 mg twice a day as it is shown to be of benefit in chronic kidney disease Nephrology consult service on board Acute on chronic anemia : Patient had guaiac positive stools, she was evaluated by GI no plans of further intervention at this point. Patient is maintained on protonix and probiotics. Patient is tolerating heart healthy diet. 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 Occupational therapy is ordered for her arm excercises and nursing staff with get her out of bed to chair. Hx of DVT/PE s/p IVC filter: IV heparin was stopped due to melena and guaiac positive stools. We'll continue to monitor for now. Patient has an IVC filter placed in 2012 Hypothyroidism: c/w levothyroxine 50mcg daily HTN: Continue Procardia. Blood pressure stable at 150/66. DVT ppx: po eliquis on hold, ALPS for now, full code. Goals of care discussion with the family. There has been multiple discussions regarding code status, but patient always wanted to be full code. Patient appears comfortable despite increasing oxygen requirements. She is experiencing no discomfort at this time. Vitals stable, labs reviewed. Lung exam shows mild coarse breath sounds bilaterally. Patient recently started on amiodarone for NSVT for underlying cornoary artery disease as per cardiology. Will continue high-flow oxygen, nightly BiPAP, follow up pulmonary recommendations, continue home medications, DVT PPx, D/C planning maybe Velazquez on friday family agreement. d/fri case management. f/u case management. TYLENOL NEEDED Tomorrow's Labs & Rationales: NONE Consulting Request: Consulting Specialty: Neurology Consulting Physician: Dr. Rodriguez Reason for Consult: LILLIE, metabolic acidosis
--- NOTE | 2016-12-15 14:38 | PN- Pulmonary ---
Subjective HPI/Critical Care Issues: Patient appears comfortable despite increasing oxygen requirements. She is experiencing no discomfort at this time. Vitals stable, labs reviewed Objective Current Medications: Current Medications Sig/Kobi Start time Last Medication Dose Route Stop Time Status Admin Acetaminophen 650 MG Q6P PRN 11/14 1615 AC 11/26 PO 0949 Acetaminophen 1,000 MG Q6P PRN 11/14 1615 AC 11/21 IV 0854 Allopurinol 50 MG DAILY 11/15 1000 AC 12/15 PO 1018 Amiodarone HCl 400 MG BID 12/09 2200 AC 12/15 PO 1016 Baclofen 2.5 MG BID 11/14 2200 AC 12/15 PO 1017 Cholecalciferol 1,000 IU DAILY 11/15 1000 AC 12/15 PO 1018 Epoetin Aldair 10,000 UNIT Q168 12/03 1100 AC 12/10 SC 1443 Ferrous Sulfate 325 MG BID 11/14 2200 AC 12/15 PO 1016 Gabapentin 100 MG DAILY 11/14 1600 AC 12/15 PO 1017 Heparin Sodium 5,000 UNIT Q8 12/05 1400 AC 12/15 (Porcine) SC 1410 Lactobacillus 1 CAP DAILY 11/15 1000 AC 12/15 Acidophilus PO 1017 Levothyroxine Sodium 0.075 MG DAILY AC 11/27 0700 AC 12/15 PO 0644 Magnesium Chloride 64 MG BID 12/08 1015 AC 12/15 PO 1017 Melatonin 3 MG AT BEDTIME PRN 11/19 1545 AC PO Metoprolol Tartrate 12.5 MG BID 12/12 2200 AC 12/15 PO 1017 Multivitamins 1 TAB DAILY 11/15 1000 AC 12/15 Therapeutic PO 1017 Nifedipine 30 MG DAILY 12/05 1000 AC 12/15 PO 1017 Omeprazole 40 MG DAILY AC 11/20 0954 AC 12/15 PO 0644 Senna/Docusate Sodium 2 TAB DAILY 12/04 1020 AC 12/14 PO 0958 Sodium Bicarbonate 1,300 MG DAILY 12/03 1005 AC 12/15 PO 1017 Vital Signs & I&O Last 24 Hrs of Vitals and I&O: Vital Signs Date Time Temp Pulse Resp B/P Pulse O2 O2 Flow FiO2 Ox Delivery Rate 12/15 1042 97 Nasal 5.0L Cannula 12/15 1017 60 125/70 12/15 1017 60 125/70 12/15 1016 60 125/70 12/15 0800 95 Nasal 5.0L Cannula 12/15 0750 97.7 60 20 125/70 95 12/15 0019 58 95 12/15 0007 97.2 60 20 120/66 96 BIPAP 12/15 0000 BIPAP 50% 12/14 2225 67 97 12/14 2142 70 112/62 12/14 2141 70 112/62 12/14 1650 95 Nasal 5.0L Cannula 12/14 1548 97.5 59 26 136/68 96 Nasal 5.0L Cannula Intake & Output 12/15 1600 12/15 0800 12/15 0000 Intake Total 100 490 Output Total 70 40 Balance 30 450 Intake, IV 0 0 Intake, Oral 100 490 Number 1 0 Bowel Movements Output, Other 70 40 Impression/Plan Impression/Plan Impression/Plan: Exam Other Physical Findings: gen awake, arousable heent ncat cvs s1, s2 lungs rare rhonchi anterior chest abd soft, bs+ ext mild edema neuro paresis chronic 81 year old woman - s/p cholecystostomy tube for acute cholecystitis - improving - hypoxemic respiratory failure requiring bipap use - 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
[2016-12-15 16:00] VITALS: BP 112/56
[2016-12-16 00:23] VITALS: BP 118/54
--- NOTE | 2016-12-16 07:48 | PN- Housestaff ---
PATRICA LOPEZ 12/16/16 0748: Subjective Follow-up For: Acute hypoxic respiratory failure Status post cholecystectomy with a cholecystostomy tube Arrhythmias Bradycardia Subjective: Patient is seen and examined this morning. She is sitting comfortably in the bed. She is saturating greater than 90% on 4 L of nasal cannula. However she required BiPAP overnight. The plan is to discharge her to [facility] today. Labs and vitals reviewed. Review of Systems Constitutional: Reports: see HPI. Objective Last 24 Hrs of Vital Signs/I&O Vital Signs Date Time Temp Pulse Resp B/P Pulse O2 O2 Flow FiO2 Ox Delivery Rate 12/16 1017 50% 12/16 0906 59 139/57 12/16 0906 59 139/57 12/16 0906 59 139/57 12/16 0808 98.7 52 20 139/57 95 Nasal 4.0L Cannula 12/16 0800 Nasal 4.0L Cannula 12/16 0023 97.3 53 20 118/54 97 BIPAP 12/16 0000 BIPAP 12/16 0000 54 94 12/15 2303 56 96 12/15 2114 62 126/60 12/15 2114 62 126/60 12/15 1600 95 Nasal 4.0L Cannula 12/15 1600 98.2 60 20 112/56 95 Nasal 4.0L Cannula 12/15 1600 93 Nasal 4.0L Cannula Intake & Output 12/16 1600 12/16 0800 12/16 0000 Intake Total 100 300 Output Total 90 Balance 10 300 Intake, Oral 100 300 Output, Other 90 Physical Exam General Appearance: Alert, Oriented X3, Cooperative Skin: No Rashes HEENT: Atraumatic Neck: Supple Cardiovascular: Normal S1, Normal S2, bradycardiac Lungs: Normal Air Movement Abdomen: Soft, No Tenderness Extremities: No Edema Current Medications: Current Medications Sig/Kobi Start time Last Medication Dose Route Stop Time Status Admin Acetaminophen 650 MG Q6P PRN 11/14 1615 AC 11/26 PO 0949 Acetaminophen 1,000 MG Q6P PRN 11/14 1615 AC 11/21 IV 0854 Allopurinol 50 MG DAILY 11/15 1000 AC 12/16 PO 0907 Amiodarone HCl 400 MG BID 12/090 AC 12/16 PO 0906 Baclofen 2.5 MG BID 11/14 220 AC 12/16 PO 0908 Cholecalciferol 1,000 IU DAILY 11/15 1000 AC 12/16 PO 0907 Epoetin Aldair 10,000 UNIT Q168 12/03 1100 AC 12/10 SC 1443 Ferrous Sulfate 325 MG BID 11/14 2200 AC 12/16 PO 0906 Gabapentin 100 MG DAILY 11/14 1600 AC 12/16 PO 0906 Heparin Sodium 5,000 UNIT Q8 12/05 1400 AC 12/16 (Porcine) SC 0600 Lactobacillus 1 CAP DAILY 11/15 1000 AC 12/16 Acidophilus PO 0906 Levothyroxine Sodium 0.075 MG DAILY AC 11/27 0700 AC 12/16 PO 0705 Magnesium Chloride 64 MG BID 12/08 1015 AC 12/16 PO 0908 Melatonin 3 MG AT BEDTIME PRN 11/19 1545 AC PO Metoprolol Tartrate 12.5 MG BID 12/12 2200 AC 12/16 PO 0906 Multivitamins 1 TAB DAILY 11/15 1000 AC 12/16 Therapeutic PO 0907 Nifedipine 30 MG DAILY 12/05 1000 AC 12/16 PO 0906 Omeprazole 40 MG DAILY AC 11/20 0954 AC 12/16 PO 0701 Senna/Docusate Sodium 2 TAB DAILY 12/04 1020 AC 12/16 PO 0906 Sodium Bicarbonate 1,300 MG DAILY 12/03 1005 AC 12/16 PO 0906 Last 24 Hrs of Lab/Jun Results Last 24 Hrs of Labs/Mics: Laboratory Tests 12/16/16 0640: Anion Gap 7, Estimated GFR 33 L, BUN/Creatinine Ratio 12.0, CBC w Diff MAN DIFF ORDERED, RBC 3.91 L, MCV 84.2, MCH 26.5 L, RDW 18.0 H, MPV 11.1 H, Segmented Neutrophils 73, Lymphocytes 19 L, Monocytes 8, Nucleated RBCs 4 H, Platelet Estimate ADEQUATE, Hypochromic-Microcytic 1+, Poikilocytosis 1+, Anisocytosis 2+ , Target Cells 2+, PUBS MCHC 31.5 L Assessment/Plan Assessment: Patient is 81 yo female with pmh of HTN, hypothyroidism, HLD, CKD, quadriplegia s/p spinal cord stroke, DVT/PE on eliquis currently on hold, Renal artery stenosis s/p renal artery stenting, who is a resident at [facility] was brought in with fever and possible UTI. Now status post cholecystectomy tube. Most recent chest x-ray from 12/02/2015 shows persistent bibasilar opacification and right greater than left pleural effusions Echocardiogram showed hyperdynamic EF of 80% with impaired LV relaxation and underfilled left ventricle and mildly hypokinetic right ventricle. Problem list 1. Acute cholecystitis status post cholecystostomy tube 2. Acute hypoxic hypercarbic respiratory failure 3. LILLIE secondary to ATN from sepsis 4. Anasarca 5. Anemia of chronic inflammation secondary to kidney disease 6. History of recurrent PEs, DVTs, status post IVC filter 7. History of hypothyroidism 8. 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 History of hypertension 10. Overall poor prognosis and poor functional status Plan - Plan is for [facility] for LT[facility] on Friday. Acute hypoxic respiratory failure c/w nocturnal BIPAP and high flow or nasal as tolerated in the am Arrhythmia On 12/06/16 patient had a 8 be run of V. tach and prior to that on 12/05/16 patient had a small run of SVT as shown on the director of sustainable design. Dr. Kirk, the barrel lathe operator on board for this patient evaluated the patient and recommended 25 mg metoprolol twice a day. On 12/09/16 patient had another 33 beat run of V. tach probably due to her underlying coronary artery disease, she is started on amiodarone on 400 mg twice a day per Dr. Kirk's recommendation. We'll continue to monitor Bradycardia Patient has been bradycardic. . She is on 25 Medrol twice a day which was decreased to 12.5 twice a day on . She continues to be on amiodarone [address] Kirk is on board Acute cholecystitis status post cholecystostomy tube 11/18/[address] in [address], no new complications. It continues to drain. Patient will be off antibiotics. Infectious disease consult service on board. Per general surgery, the tube will stay in for 6-8 weeks. Patient would need an outpatient follow up with Dr. Walls for removal of the cholecystostomy tube if she gets discharged before that. The tube will come out on, 12/30/16. Acute kidney injury/ATN from sepsis/anasarca, low albumin Patient's creatinine is stable at 1.3 - 1.4. This looks like her new baseline Her creatinine on 12/13/16 is 1.5, she is encouraged on oral fluid intake Cont Neupogen for a target hemoglobin of 10-11. Continue sodium bicarbonate 1300 mg twice a day as it is shown to be of benefit in chronic kidney disease Nephrology consult service on board Acute on chronic anemia : Patient had guaiac positive stools, she was evaluated by GI no plans of further intervention at this point. Patient is maintained on protonix and probiotics. Patient is tolerating heart healthy diet. Her eliquis and Plavix are held due to guaiac positive stools. Will clarify with cardiology regarding holding her and liquids and Plavix on discharge. 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 Occupational therapy is ordered for her arm excercises and nursing staff with get her out of bed to chair. Hx of DVT/PE s/p IVC filter: IV heparin was stopped due to melena and guaiac positive stools. We'll continue to monitor for now. Patient has an IVC filter placed in 2012 Hypothyroidism: c/w levothyroxine 50mcg daily HTN: Continue Procardia. Blood pressure stable at 150/66. DVT ppx: po eliquis on hold, ALPS for now, full code. Goals of care discussion with the family. There has been multiple discussions regarding code status, but patient always wanted to be full code. Problem List: 1. Acute hypoxemic respiratory failure Pain Ratin Pain Location: Not applicable Pain Goal: Pain 4 or less Pain Plan: Tylenol when necessary for pain Tomorrow's Labs & Rationales: None Consulting Request: Consulting Specialty: Neurology Consulting Physician: Dr. Rodriguez Reason for Consult: LILLIE, metabolic acidosis KASANDRA NEWBY 12/16/16 1011: Attending MD Review Statement Attending Statement Attending MD Statement: examined this patient, discuss w/resident/PA/SLIDE FASTENER REPAIRER, agreed w/resident/PA/SLIDE FASTENER REPAIRER, discussed with family, reviewed EMR data (avail), discussed with nursing, discussed with case mgmt, reviewed images Attending Assessment/Plan: Patient appears comfortable despite increasing oxygen requirements. She is experiencing no discomfort at this time. Vitals stable, labs reviewed. Lung exam shows mild coarse breath sounds bilaterally. Patient recently started on amiodarone for NSVT for underlying cornoary artery disease as per cardiology. Will continue high-flow oxygen, nightly BiPAP, follow up pulmonary recommendations, continue home medications, DVT PPx, D/C planning maybe [facility] on friday family agreement. d/fri case management. f/u case management. D/C today or tomorrow.
[2016-12-16 07:53] LABS: HEMATOCRIT 32.9 % (37-47); MEAN CORPUSCULAR HGB 26.5 PG (27.0-31.0); MEAN CORPUSCULAR HGB CONC 31.5 G/DL (33.0-37.0); MEAN CORPUSCULAR VOLUME 84.2 FL (81.0-99.0); MEAN PLATELET VOLUME 11.1 FL (7.4-10.4); PLATELET COUNT 246 /CUMM (130-400); RED BLOOD CELL CT 3.91 /CUMM (4.20-5.40); WHITE BLOOD CELL COUNT 7.9 /CUMM (4.8-10.8)
[2016-12-16 08:08] VITALS: BP 139/57
[2016-12-16] MEDS ORDERED: NIFEDIPINE ER30 M2 PO (10:19)
[2016-12-16] MEDS ORDERED: METOPROLOL TART25 M1 PO (10:21)
[2016-12-16] MEDS ORDERED: AMIODARONE HCL200 M1 PO (10:22)
[2016-12-16] MEDS ORDERED: SYNTHROID75 MCG PO (10:24)
--- NOTE | 2016-12-16 11:22 | PN- Pulmonary ---
Subjective HPI/Critical Care Issues: doing very well on 4LNC comfortable speaking no new events Objective Current Medications: Current Medications Sig/Kobi Start time Last Medication Dose Route Stop Time Status Admin Acetaminophen 650 MG Q6P PRN 11/14 1615 AC 11/26 PO 0949 Acetaminophen 1,000 MG Q6P PRN 11/14 1615 AC 11/21 IV 0854 Allopurinol 50 MG DAILY 11/15 1000 AC 12/16 PO 0907 Amiodarone HCl 400 MG BID 12/09 2200 AC 12/16 PO 0906 Baclofen 2.5 MG BID 11/14 2200 AC 12/16 PO 0908 Cholecalciferol 1,000 IU DAILY 11/15 1000 AC 12/16 PO 0907 Epoetin Aldair 10,000 UNIT Q168 12/03 1100 AC 12/10 SC 1443 Ferrous Sulfate 325 MG BID 11/14 2200 AC 12/16 PO 0906 Gabapentin 100 MG DAILY 11/14 1600 AC 12/16 PO 0906 Heparin Sodium 5,000 UNIT Q8 12/05 1400 AC 12/16 (Porcine) SC 0600 Lactobacillus 1 CAP DAILY 11/15 1000 AC 12/16 Acidophilus PO 0906 Levothyroxine Sodium 0.075 MG DAILY AC 11/27 0700 AC 12/16 PO 0705 Magnesium Chloride 64 MG BID 12/08 1015 AC 12/16 PO 0908 Melatonin 3 MG AT BEDTIME PRN 11/19 1545 AC PO Metoprolol Tartrate 12.5 MG BID 12/12 2200 AC 12/16 PO 0906 Multivitamins 1 TAB DAILY 11/15 1000 AC 12/16 Therapeutic PO 0907 Nifedipine 30 MG DAILY 12/05 1000 AC 12/16 PO 0906 Omeprazole 40 MG DAILY AC 11/20 0954 AC 12/16 PO 0701 Senna/Docusate Sodium 2 TAB DAILY 12/04 1020 AC 12/16 PO 0906 Sodium Bicarbonate 1,300 MG DAILY 12/03 1005 AC 12/16 PO 0906 Vital Signs & I&O Last 24 Hrs of Vitals and I&O: Vital Signs Date Time Temp Pulse Resp B/P Pulse O2 O2 Flow FiO2 Ox Delivery Rate 12/16 1017 50% 12/16 09 59 139/57 12/16 0906 59 139/57 12/16 0906 59 139/57 12/16 0808 98.7 52 20 139/57 95 Nasal 4.0L Cannula 12/16 0800 Nasal 4.0L Cannula 12/16 0023 97.3 53 20 118/54 97 BIPAP 12/16 0000 BIPAP 12/16 0000 54 94 12/15 2303 56 96 12/154 62 126/60 12/154 62 126/60 12/15 1600 95 Nasal 4.0L Cannula 12/15 1600 98.2 60 20 112/56 95 Nasal 4.0L Cannula 12/15 1600 93 Nasal 4.0L Cannula Intake & Output 12/16 1600 12/16 0800 12/16 0000 Intake Total 100 300 Output Total 90 Balance 10 300 Intake, Oral 100 300 Output, Other 90 Exam Other Physical Findings: gen awake, arousable heent ncat cvs s1, s2 lungs rare rhonchi anterior chest abd soft, bs+ ext mild edema neuro paresis chronic Results Last 24 Hrs of Lab Results: Laboratory Tests 12/16/16 0640: Anion Gap 7, Estimated GFR 33 L, BUN/Creatinine Ratio 12.0, CBC w Diff MAN DIFF ORDERED, RBC 3.91 L, MCV 84.2, MCH 26.5 L, RDW 18.0 H, MPV 11.1 H, Segmented Neutrophils 73, Lymphocytes 19 L, Monocytes 8, Nucleated RBCs 4 H, Platelet Estimate ADEQUATE, Hypochromic-Microcytic 1+, Poikilocytosis 1+, Anisocytosis 2+ , Target Cells 2+, PUBS MCHC 31.5 L Impression/Plan Impression/Plan Impression/Plan: Impression 81 year old woman - s/p cholecystostomy tube for acute cholecystitis - improved - hypoxemic respiratory failure requiring bipap use - 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
[2016-12-16 12:04] VITALS: BP 139/57
--- NOTE | 2016-12-16 13:28 | Discharge Summary ---
Visit Information Visit Dates Admission Date: 11/14/16 Discharge Date: 11/2716 Hospital Course Course Attending Physician: KASANDRA NEWBY MD Primary Care Physician: VIKKI METZ,ADIS Bowser Consulting Request: Consulting Specialty: Neurology Consulting Physician: Dr. Rodriguez Reason for Consult: LILLIE, metabolic acidosis Hospital Course: Patient is 81 year old female with pmh of HTN, hypothyroidism, HLD, CKD, quadriplegia s/p spinal cord stroke, DVT/PE on eliquis, Renal artery stenosis s/ p renal artery stenting, who is a resident at [facility] was brought in with fever and possible UTI. She was noted to have fever at ECF prior to admission and bloodwork showed a significantly elevated WBC. She had been begun on Macrodantin 100 mg bid for presumed UTI. Patient was seen and treated for the following conditions. Arrhythmia ( V tach and bradycardia) On 12/06/16 patient had a 8 beat run of V. tach and prior to that on 12/05/16 patient had a small run of SVT as shown on the doll wig maker rooted hair. Dr. Kirk, the timber supervisor on board for this patient evaluated the patient and recommended 25 mg metoprolol twice a day. On 12/09/16 patient had another 33 beat run of V. tach probably due to her underlying coronary artery disease, she is started on amiodarone on 400 mg twice a day per Dr. Kirk's recommendation. Later the patient was found to be bradycardic with a heart rate in 48-50. Her metoprolol dose was decreased from 25 twice a day to 12.5 twice a day. Patient will follow with Dr. Kirk as an outpatient. Sepsis secondary to acute cholecystitis: Initially source of infection was suspected as UTI. She had urinary incontinence /neurogenic bladder at baseline. CT abdomen/pelvis showed hydropic GB and distended appendix. General surgery was consulted, and HIDA scan was done which showed findings of acute cholecystitis. Patient was not a surgical candidate and so a percutaneous cholecystostomy tube was placed on 11/18 by IR. PO eliquis/ plavix were held prior to the procedure. Patient was started on IV Zosyn as per ID recommendations. Bili cultures have been negative. Urine cultures were positive for morganella morganii, providencia. IV Zosyn was stopped after 9 days. Cholecystostomy has decent amount of drainage. Patient remained afebrile, however continued to have persistent leukocytosis. Repeat Chest CT showed no evidence of acute hematoma/hemorrhage within the abdomen/ pelvis. Repeat urine cultures negative. C. difficile was negative. Patient remained stable and afebrile on the floor. At discharge patient is recommended to follow-up with Dr. Walls regarding the management of the cholecystostomy tube which typically was planned to be in for 6 weeks (till 12/31/15). Acute hypoxic hypercarbic respiratory failure: On 11/22/2016, patient developed acute hypoxic hypercarbic respiratory failure, requiring BiPAP and ICU transfer. The cause of respiratory failure was possibly due to bilateral pleural effusions /atelectasis and opiate use for her pain from cholecystitis. She received Narcan prior to transfer to the ICU and was placed on a BiPAP. She was planned for a thoracentesis by IR will decided not to do the procedure as the effusions were too small to tap. Patient was tapered off the BiPAP in the ICU and was placed on nasal cannula. Patient was transferred to the telemetry floor from ICU where she continued to be on the BiPAP for poor respiratory status. Echocardiogram showed hyperdynamic EF of 80% with impaired LV relaxation and underfilled left ventricle & mildly hypokinetic right ventricle. Repeat chest x -ray showed persistent bibasilar opacification and right greater than left pleural effusions. Pulmonary consult service was on board. When patient stabilized she was transferred to telemetry floor, she remains on BiPAP and high flow oxygen here. Acute kidney injury/metabolic acidosis: Possibly an ATN secondary to sepsis. Was treated with IV fluids and bicarbonate. Patient was started on Epogen weekly due to low reticulocyte index. She was followed by nephrology who felt there was no clear of diuresis at this time. There was no indication for dialysis. BEP was regular monitored and patient's creatinine improved subsequently. Her creatinine remains 1.3 1.4, which looks like her new baseline. Bilateral pleural effusion Patient was on Eliquis at home, which was held in the hospital considering the possibility of pleural tapping and patient was started on IV heparin, which was later stopped due to lower GI bleeding and episodes of epistaxis. No tap was done as the pleural fluid was insignificant in amount. Hypotension, in the setting of diuresis, with possible preload dependence with severe pulmonary hypertension: In the ICU as per the timber supervisor recommendation patient was started on dobutamine drip to support her blood pressure. She also received IV fluid boluses to maintain her blood pressures. Dobutamine drip was later turned off as patient was able to maintain her blood pressure. On telemetry floor, patient started to get hypertensive therefore her nifedipine was restarted her blood pressure is maintained between 140-150 systolic. Acute on chronic anemia, requiring 3 units of blood transfusion: Per rectal bleeding and epistaxis H/h was stable but she continued to have guaiac positive stools. Eliquis and Plavix were held for anemia and guaiac positive stools. Patient was continued on Protonix and probiotic. She was evaluated by GI and there was no plan for active intervention History of recurrent pulmonary embolism, DVTs, status post IVC filter placement Was taking Eliquis at home which was held prior to the cholecystostomy tube insertion procedure. She was started on IV Heparin awaiting pleural tap but had one episode of bright red blood per rectum so Heparin was discontinued. Hypothyroidism: Her Synthroid dose was increased from 50 MCG daily to 75mcg PO daily. Patient needs a repeat TSH, free T4 T3 in 2 weeks post discharge. Altered mental status/lethargy CT negative for any acute pathology. Patient much more awake, alert and tolerating HH diet. 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 c/w baclofen for spasticity & gabapentin #Diet: per oral, Heart healthy #Full code Goals of care discussion with the family. There has been multiple discussions regarding code status, but patient always wanted to be full code. Allergies: Coded Allergies: clonidine (HIVES 02/02/16) Disposition Summary Disposition Principal Diagnosis: Acute hypoxic respiratory failure ACute cholecystitis s/p cholecystectomy Additional Diagnosis: Bradycardia LILLIE Hypotension Discharge Disposition: SNF Discharge Instructions General Discharge Information Code Status: Full Code Patient's Diet: Regular, heart healthy Patient's Activity: as tolerated Follow-Up Instructions/Appts: Please follow up with PCP within 7 days of discharge. Please follow up with Cardiolofgy consult service on discharge. Medications at Discharge Discharge Medications: Stop taking the following medications: Clopidogrel Bisulfate (Clopidogrel) 75 MG TABLET ORAL DAILY Levothyroxine Sodium (Synthroid) 50 MCG TABLET ORAL DAILY BEFORE BREAKFAST Apixaban (Eliquis) 5 MG TABLET ORAL TWICE DAILY Nitrofurantoin Monohyd/M-Cryst (Nitrofurantoin [place]-Mcr 100 MG) 100 MG CAPSULE ORAL TWICE DAILY Qty = 14 Continue taking these medications: Allopurinol (Allopurinol) 100 MG TABLET 0.5 Tablet ORAL DAILY Nifedipine (Nifedipine ER) 30 MG TAB.ER.24 1 Tablet ORAL DAILY Baclofen (Baclofen) 10 MG TABLET 0.25 Tablet ORAL TWICE DAILY Comments: Last Taken: 12/16/16 Time: 0800 Multivitamin (Multiple Vitamins) 1 EACH TABLET 1 Tablet ORAL DAILY Comments: Last Taken: 12/16/16 Time: 0800 Cholecalciferol (Vitamin D3) 1,000 UNIT TABLET 1 Tablet ORAL DAILY Darbepoetin Aldair in Polysorbat (Aranesp) 25 MCG/0.42 ML SYRINGE 1 Inj Inject into fatty tissue Once a Week Gabapentin (Gabapentin) 300 MG CAPSULE 1 Capsule ORAL THREE TIMES DAILY Qty = 90 Comments: Last Taken: 12/16/16 Time: 0800 Albuterol Sulfate (Albuterol Sulfate) 2.5 MG/3 ML (0.083 %) VIAL.NEB 1 Vial Inhale Solution 4 TIMES A DAY Instructions: FOR 3 DAYS START 11/14 Ferrous Sulfate (Ferrous Sulfate) 325 MG (65 MG IRON) TABLET 1 Tablet ORAL TWICE DAILY Comments: Last Taken: 12/16/16 Time: 0800 Lactobacillus Acidophilus (Acidophilus) 1 EACH CAPSULE 1 Capsule ORAL DAILY Comments: Last Taken: 12/16/16 Time: 0800 Start taking the following new medications: Sodium Bicarbonate (Sodium Bicarbonate) 325 MG TABLET 1,300 Milligram ORAL TWICE DAILY Days = 30 No Refills Omeprazole (Omeprazole) 20 MG CAPSULE.DR 40 Milligram ORAL DAILY BEFORE BREAKFAST Days = 30 No Refills Levothyroxine Sodium (Synthroid) 75 MCG TABLET 0.075 Milligram ORAL DAILY BEFORE BREAKFAST Qty = 60 No Refills Metoprolol Tartrate (Metoprolol Tartrate) 25 MG TABLET 12.5 Milligram ORAL TWICE DAILY Qty = 30 No Refills Amiodarone HCl (Amiodarone HCl) 200 MG TABLET 2 Tablet ORAL TWICE DAILY Qty = 30 No Refills Copies To: KASANDRA NEWBY MD; KENDAL METZ,VAN Merchant; MICHELLE METZ PhD,HAUGHTON Joanne; MOLLY METZ,ANGEL Attending MD Review Statement Documenting Attending: KASANDRA NEWBY MD Other Findings: Patient had long compliacted course during this hospital staya s above. Patient is not on anticoagulation as cardiology deferred for now, daughter/family in agreement with plan. Patient can be safely discharged to facility as approved by case managament.
== END 2016-12-16 15:15 | DRG 871 ==
LOC: ENRESERVTM → ENRESERVDT → ERH 08:35 → ERHI 11:41 → 2NB 11:41 → 1NO 11:41 → ENPENDDIS 11:41 → 2NB 13:14 → CRI 11-22 12:31 → 1NO 11-28 22:34
PROVIDERS: Dermatology; Emergency Medicine; Internal Medicine; Internal Medicine Hematology & Oncology; Internal Medicine Interventional Cardiology; Internal Medicine Nephrology; Internal Medicine Pulmonary Disease; Preventive Medicine Public Health & General Preventive Medicine; Student in an Organized Health Care Education/Training Program; ADMIT Internal Medicine
PROC: 0F9430Z Drainage of Gallbladder with Drainage Device, Percutaneous Approach (ICD-10-PCS; principal; 2016-11-18)
PROC: 5A09457 Assistance with Respiratory Ventilation, 24-96 Consecutive Hours, Continuous Positive Airway Pressure (ICD-10-PCS; 2016-11-22)
PROC: 30233N1 Transfusion of Nonautologous Red Blood Cells into Peripheral Vein, Percutaneous Approach (ICD-10-PCS; 2016-12-13)
DX: A41.9 Sepsis, unspecified organism (principal); N17.0 Acute kidney failure with tubular necrosis; J96.01 Acute respiratory failure with hypoxia; G82.50 Quadriplegia, unspecified; I50.33 Acute on chronic diastolic (congestive) heart failure; J96.02 Acute respiratory failure with hypercapnia; I47.2 Ventricular tachycardia; I95.9 Hypotension, unspecified; K82.1 Hydrops of gallbladder; I13.0 Hypertensive heart and chronic kidney disease with heart failure and stage 1 through stage 4 chronic kidney disease, or unspecified chronic kidney disease; E46 Unspecified protein-calorie malnutrition; K80.00 Calculus of gallbladder with acute cholecystitis without obstruction; E87.2 Acidosis; N30.01 Acute cystitis with hematuria; D62 Acute posthemorrhagic anemia; G62.9 Polyneuropathy, unspecified; J44.9 Chronic obstructive pulmonary disease, unspecified; N31.9 Neuromuscular dysfunction of bladder, unspecified; I27.2 Other secondary pulmonary hypertension; D64.9 Anemia, unspecified; N18.9 Chronic kidney disease, unspecified; E03.9 Hypothyroidism, unspecified; E78.5 Hyperlipidemia, unspecified; M10.9 Gout, unspecified; R65.20 Severe sepsis without septic shock; E83.42 Hypomagnesemia; I44.0 Atrioventricular block, first degree; R32 Unspecified urinary incontinence; Z79.01 Long term (current) use of anticoagulants; Z86.711 Personal history of pulmonary embolism; Z86.718 Personal history of other venous thrombosis and embolism; Z86.73 Personal history of transient ischemic attack (TIA), and cerebral infarction without residual deficits
CPT/HCPCS: 1NSP; 2NBP; 84133; 84300; 87075; CCU; 36415; 74176; 78226; 81001; 82436; 82570; 83010; 86860; 86902; 86920; 86922; 87040; 87086; 93005; 93010; 93306; 93970; 96361; 96374; 99291; A9537; C1769; J0131; J0360; J0696; J0885-EC; J1644; J1940; J2310; J2543; J7040; J7042; J7060; P9016